=== PATIENT | female | born 1945 | race Caucasian/White ===

== ENCOUNTER → 2017-06-05 08:54 | Outpatient (CLI) | payer MEDICARE, SELFPAY ==
[2017-06-05 10:37] LABS: Absolute Lymphocyte Count 1.52 X10^3/ul (0.83-4.51); Absolute Neutrophil Count 3.4 X10^3/uL (2.0-7.7); Basophil# 0.03 X10^3/uL; Basophil% 0.5 % (0-1); Eosinophil# 0.05 X10^3/uL; Eosinophils% 0.9 % (0-5); Hematocrit 41.4 % (37-47); Hemoglobin 13.8 g/dl (12.0-15.0); Lymphocyte # 1.52 X10^3/ul (4.0); Lymphocyte % 27.4 % (19-41); Mean Corp Hgb Conc 33.3 g/gl (32-36); Mean Corpuscular Hgb 30.5 pg (27.0-32.0); Mean Corpuscular Volume 91.6 fL (81-99); Monocyte# 0.49 X10^3/uL; Monocyte% 8.8 % (0-10); Neutrophil # 3.43 X10^3/uL (2.7-7.7); Neutrophil % 61.9 % (47-70); Platelet Count 245 K/mm3 (150-450); RBC Distribution Width CV 14.1 % (11.6-14.6); RBC Distribution Width SD 46.5 fl (35.1-43.9); Red Blood Count 4.52 M/mm3 (4.2-5.4); White Blood Count 5.6 K/mm3 (4.4-11.0)
[2017-06-05 10:41] LABS: POSITIVE COUNT NO; POSITIVE DIFFERENTIAL NO; POSITIVE MORPHOLOGY NO
[2017-06-05 10:56] LABS: T3 Total - Triiodothyronine 0.94 ng/mL (0.6-1.81)
[2017-06-05 11:17] LABS: ALB/GLOB Ratio 0.9 RATIO (0.9-2.4); AST(SGOT) 21 U/L (15-37); Alanine Aminotransfer ALT/SGPT 21 U/L (13-56); Albumin, Serum 3.3 g/dL (3.2-5.0); Alkaline Phosphatase 121 U/L (45-117); Anion Gap 9 (5-15); BUN 10 mg/dL (7-18); BUN/Creat Ratio 11.6 RATIO (10-20); Calcium,Total 8.9 mg/dL (8.5-10.1); Chloride 102 mmol/L (98-107); Cholesterol 239 mg/dL (200); Creatinine, Serum 0.86 mg/dL (0.55-1.02); EST Glomerular Filtration Rate 69 mL/min (>60); Est Glom Filt Rate - Afr Amer 83 mL/min (>60); Globulin 3.7 g/dL (2.2-4.2); Glucose 100 mg/dL (74-106); High Density Lipoprotein 52 mg/dL; Potassium 4.2 mmol/L (3.5-5.1); Sodium Level 136 mmol/L (136-145); T4 Free Direct 1.42 ng/dL (0.76-1.46); Thyroid Stim Hormone (TSH) 0.51 uIU/mL (0.358-3.74); Triglycerides 100 mg/dL; Very Low Density Lipoprotein 20 mg/dL (5-40)
== END ==
PROVIDERS: Family Provider Family Medicine; PCP Family Medicine; Visit Provider Family Medicine
DX: E78.5 Hyperlipidemia, unspecified (principal); E03.9 Hypothyroidism, unspecified; R53.83 Other fatigue
CPT/HCPCS: 36415; 80053; 80061; 84439; 84443; 84480; 85025

== ENCOUNTER → 2017-11-23 14:17 | Outpatient (CLI) | payer MEDICARE, SELFPAY | PROVIDERS: Family Provider Family Medicine; PCP Family Medicine; Visit Provider Family Medicine | DX: Z12.31 Encounter for screening mammogram for malignant neoplasm of breast (principal) | CPT/HCPCS: 77063; 77067 ==

== ENCOUNTER → 2017-12-18 08:20 | Outpatient (CLI) | payer MEDICARE, SELFPAY ==
[2017-12-18 12:39] LABS: Cholesterol 224 mg/dL (200); High Density Lipoprotein 51 mg/dL; Triglycerides 88 mg/dL; Very Low Density Lipoprotein 18 mg/dL (5-40)
== END ==
PROVIDERS: Family Provider Family Medicine; PCP Family Medicine; Visit Provider Family Medicine
DX: E78.5 Hyperlipidemia, unspecified (principal)
CPT/HCPCS: 36415; 80061

== ENCOUNTER → 2017-12-31 07:07 | Outpatient (CLI) | payer MEDICARE, SELFPAY ==
--- NOTE | 2017-12-31 07:12 | RAD_ITS ---
STUDY: X-RAY CHEST REASON FOR EXAM: Female, 72 years old. Chronic cough for one month. TECHNIQUE: The colon COMPARISON: 03/18/2014. FINDINGS: The lungs are somewhat hyperinflated. No focal infiltrate is seen. There is no demonstrated pleural abnormality. Normal size heart. Normal mediastinum and vannesa. Normal visualized pulmonary arteries. There is atherosclerotic tortuosity of the aortic arch and descending thoracic aorta. There is vertebroplasty of lower thoracic vertebra probably T9. There is increased kyphosis of the thoracic spine. There are old fractures of the left ribs. There is no demonstrated abnormality of the visualized soft tissue structures of the upper abdomen. RAD/Chest PA and Lateral IMPRESSION: No active pulmonary disease. Electronically Signed: Gerber Greene MD at 2:22 EDT Tel , Service support ,
== END ==
PROVIDERS: Family Provider Family Medicine; PCP Family Medicine; Visit Provider Family Medicine
DX: R05 Cough (principal); Z72.0 Tobacco use
CPT/HCPCS: 71046

== ENCOUNTER 2018-02-01 11:30 | Outpatient (RCR) | payer MEDICARE, SELFPAY ==
--- NOTE | 2017-12-30 15:57 | HP.PTEVAL_ITS ---
Patient's Visit Information AMOS RIOS is a 72 year old F referred to Physical Therapy by Zuly Blas DO with a diagnosis of LOW AND MID BACK PAIN - OSTEOARTHRITIS. Date of Evaluation: 12/30/17 Physical Therapist: Valerie Baker - Visit Plan Frequency: 2x /Week Duration: 4-6 Weeks Plan: AQUATIC THERAPY FOR PAIN RELEIF, POSTURE CORRECTION/STRENGTHENING, INSTRUCTION IN APPROPRIATE BODY MECHANICS AND ACTIVITY MODIFICATIONS. DLS STARTING WITH A NEUTRAL SPINE PROGRESSING ROM TOLERATED. JAVID LE ROM, STRETCHING AND STRENGTHENING. HEP INSTRUCTION. 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 Disability: NO. Present symptoms: MID BACK PAIN, LOW BACK PAIN AND RIGHT GROIN. JAVID FINGER AND JAVID TOE NUMBNESS AND TINGLING. Present since: CHRONIC - AT LEAST 3 YEARS FOR MID BACK PAIN AND LONGER FOR LOW BACK PAIN. Pain Scale: WORST 8/10, LEAST 4/ 10. Currently: 6/10. Commenced as a result of: LOW BACK PAIN STARTED 3-4 YEARS AGO WITH A FALL WHEN SHE BROKE HER PELVIS IN MULTIPLE PLACES AND THEN A WHILE LATER SHE GOT A THORACIC COMPRESSION FREACTURE FOR NO APPARENT REASON. TOES STARTED TO TINGLE WHEN FELL AND FRACTURED PELVIS. FINGERS STARTED TO TINGLE IN THE LAST MONTH FOR NO APPARENT REASON. Worse: WALKING, STANDING, BENDING, LIFTING, HOUSEWORK, PROLONGED SITTING, GETTING IN AND OUT OF THE CAR, GETTING IN AND OUT OF BED, UP AND DOWN STEPS. Better: LYING IN BED WITH FEET UP, SITTING WITH FEET UP ON STOOL, BENDING BACK BACKWARDS. MALOXACAM. Disturbed sleep: NO. Previous history/Previous treatment: PHYSICAL THERAPY AFTER THE FALL. GLEN'S WERE TRIED ABOUT 3 YEARS AGO BUT DIDN'T HELP. VERTEBRAL PLASTY ABOUT 3 YEARS. AQUATIC THERAPY WITH SOME BENEFIT ABOUT 2 YEARS AGO. Coughing/sneezing/straining: POSITIVE. Gait: DISTANCE LIMITED BY LOW BACK PAIN. CART HELPS IN STORE. Difficulty initiating urinatin: NO. Accidents: NO. Unexplained weight loss: NO. Imaging: NONE RECENT. PMH: OSTEOPOROSIS, THYROID DZ, DEPRESSION, STOMACH ISSUES, MALOXACAM, H/O COLON CANCER 2011 TREATED WITH SURGERY AND LYMPHOMA 14 YEARS AGO TREATED WITH CHEMO AND RADIATION. OTHER: PATIENT REPORTS SHE HAS SILVER SNEAKERS BUT SHE DOES NOT USE IT. - Objective Sitting/Standing Posture: POOR. INCREASED KYPHOSIS, FORWARD HEAD, ROUNDED SHOULDERS. Active Correction of posture: BETTER. Other Observations: PATIENT IS ABLE TO INDEP'LY TRANSFER FROM SIT TO STAND WITHOUT UE ASSIST BUT IT IS DIFFICULT. Motor deficit: JAVID UE STRENGTH GROSSLY 4-/5 WITH MMT'ING. JAVID LE STRENGTH GROSSLY 4/5 WITH MMT'ING EXCEPT RIGHT HIP GRADED 3+/5. ROM deficit : APPROXIMATELY 30% DECREASE IN JAVID SHOULDER ELEVATION. TIGHT HIP FLEXORS, HS' S AND GASRTOC SOLEUS COMPLEX'S. Sensory deficit: JAVID UE AND LE LIGHT TOUCH SENSATION INTACT AND SYMMETRICAL EXCEPT GROSS DECREASE IN FINGER TIPS AND TOES. Lumbar mvmt loss: flex - NIL. ext - ROCCO. R SG - MOD. L SG - MOD. PATIENT C/O INCREASED MID AND LOW BACK PAIN WITH EXTENSION TESTING BUT IN SUBJECTIVE REPORTED THAT SHE STRETCHES BACKWARDS AT TIMES TO TRY TO GET RELEIF. THORACIC MVMT LOSS: MAJOR MVMT LOSS JAVID THORACIC ROTATION AND EXTENSION AND INCREASED PAIN WITH ROM TESTING. Core strength: POOR. Palpation: TENDER WITH PALPATION OF MID THORACIC SPINE REGION. OTHER: THIS PT PROCEEDED CAREFULLY WITH ALL TESTING TODAY. - Goals Goal 1:: DECREASE C/O BACK PAIN (MID AND LOW BACK). Goal Time Frame: 4-6 Weeks Goal 2:: IMPROVE LIFTING, WALKING, SITTING, STANDING, SOCIAL LIFE, TRAVEL AND HOMEMAKING FUNCTION Goal Time Frame: 4-6 Weeks Goal 3:: INSTRUCT IN PROPHYLAXIS Goal Time Frame: 4-6 Weeks - Rehabilitation Potential Rehabilitation Potential: Fair - Anticipated Interventions Patient/Client Instruction: Educate patient on: Condition, Plan of Care, Risk Factors, Benefits of Fitness Program For the Purpose of:: To improve self management Therapeutic Exercise to Include: Strength training, Body mechanics, Postural training, Flexibilty training, Gait and locomotor training, In an aquatic setting, Active ROM, Dynamic Lumbar Stabilization, Scapular Strength/ Stabilization For the Purpose of:: To decrease pain, To increase ROM, To improve muscle performance and motor function, To increase tolerance to activity/condition/ position, To improve ability of physical actions for home/community/work/leisure , To improve gait and locomotor functions Thank you for the opportunity to evaluate your patient. For Medicare and Medicare HMO plans, please review the plan of care and approve it. It will need to be FAXED BACK to us at [phone] for Medicare purposes. Please let me know if there are questions or concerns regarding this plan of care. Physician Signature: Date:
--- NOTE | 2018-02-01 12:22 | HP.PTREVAL_ITS ---
Zuly Blas, DO, It has been my pleasure to treat AMOS RIOS over the last 10 visits for LOW AND MID BACK PAIN - OSTEOARTHRITIS. Please see the progress note below for an update on the physical therapy plan of care! Subjective: PATIENT REPORTS THAT SINCE STARTING PT SHE IS WALKING BETTER AND SHE IS WORKING ON BETTER POSTURE. SHE REPORTS SHE IS HOLDING HER BACK DIFFERENTLY WHEN DOING HOUSEWORK AND THAT HELPS HER ACCOMPLISH A LITTLE BIT MORE. PATIENT REPORTS SHE IS DOING STEPS BETTER TOO AND SHE HAS STEPS AT WORK BUT NOT AT HOME. PATIENT REPORTS SHE IS NOT DRAGGING HER RIGHT LEG ANYMORE AND SHE IS WALKING MORE NORMALLY. SHE REPORTS SHE WAS WEARING OUT THE TOE OF HER RIGHT SHOES BUT NOT NOW. SHE REPORTS SHE DOES STILL HAVE TO ASSIST HER RIGHT LEG IN AND OUT OF THE CAR SOMETIMES BUT ONLY WHEN SHE IS REALLY TIRED. I THINK I HAVE MORE STRENGTH IN MY RIGHT LEG THAN I HAVE FOR A LONG TIME. PATIENT REPORTS HER FINGER AND TOE NUMBNESS AND TINGLING IS BETTER TOO - HASN'T HAD IT FOR A WEEK OR TWO NOW. Objective/Function: PAIN, STRENGTH, MOBILITY AND PARASTHESIA'S ARE IMPROVING. GOOD PROGRESS TOWARD ALL PT GOALS. PATIENT IS ABLE TO INDEP'LY TRANSFER FROM SIT TO STAND WITHOUT UE ASSIST MUCH MORE EASILY TODAY. Motor deficit: JAVID LE STRENGTH GROSSLY 5/5 WITH MMT'ING EXCEPT RIGHT HIP GRADED 4-/5 AND LEFT HIP 4/5. ROM deficit: APPROXIMATELY 30% DECREASE IN JAVID SHOULDER ELEVATION. TIGHT HIP FLEXORS, HS'S AND GASRTOC SOLEUS COMPLEX'S BUT TOLERATING STRETCHING EX'S. Sensory deficit: JAVID UE AND LE LIGHT TOUCH SENSATION IS INTACT AND SYMMETRICAL TODAY - FINGER AND TOE SX'S HAVE IMPROVED. Lumbar mvmt loss: flex - NIL. ext - MOD. R SG - MOD. L SG - MOD. PATIENT C/O IPSILATERAL LBP WITH SG TESTING BUT NO C/O INCREASED PAIN WITH FLEX AND EXT TESTING. THORACIC MVMT LOSS: MAJOR MVMT LOSS JAVID THORACIC ROTATION AND EXTENSION AND INCREASED PAIN WITH ROM TESTING. Core strength: POOR. Palpation: TENDER WITH PALPATION OF MID THORACIC SPINE REGION. OTHER: THIS PT PROCEEDED CAREFULLY WITH ALL TESTING TODAY. BACK OSWESTRY HAS IMPROVED FROM 26 TO 18. Plan Plan: WOULD RECOMMEND CONTINUED AQUATIC THERAPY 2 TIMES A WEEK FOR 4 WEEKS. PATIENT IS GOING TO USE A POOL OF HER CHOICE 1X/WEEK INDEP'LY TO WORK TOWARD FULL TRANSFER TO INDEP POOL PROGRAM. AQUATIC THERAPY FOR PAIN RELEIF, POSTURE CORRECTION/STRENGTHENING, INSTRUCTION IN APPROPRIATE BODY MECHANICS AND ACTIVITY MODIFICATIONS. DLS STARTING WITH A NEUTRAL SPINE PROGRESSING ROM TOLERATED. JAVID LE ROM, STRETCHING AND STRENGTHENING. HEP INSTRUCTION. Goals Goal 1:: DECREASE C/O BACK PAIN (MID AND LOW BACK). Goal Time Frame: 4-6 Weeks Goal Progress: Progressing Goal 2:: IMPROVE LIFTING, WALKING, SITTING, STANDING, SOCIAL LIFE, TRAVEL AND HOMEMAKING FUNCTION Goal Time Frame: 4-6 Weeks Goal Progress: Progressing Goal 3:: INSTRUCT IN PROPHYLAXIS Goal Time Frame: 4-6 Weeks Goal Progress: Progressing Anticipated Interventions Patient/Client Instruction: Educate patient on: Condition, Plan of Care, Risk Factors, Benefits of Fitness Program For the Purpose of:: To improve self management Therapeutic Exercise to Include: Strength training, Body mechanics, Postural training, Flexibilty training, Gait and locomotor training, In an aquatic setting, Active ROM, Dynamic Lumbar Stabilization, Scapular Strength/Stabilization For the Purpose of:: To decrease pain, To increase ROM, To improve muscle performance and motor function, To increase tolerance to activity/condition/position, To improve ability of physical actions for home/co mmunity/work/leisure, To improve gait and locomotor functions Please do not hesitate to contact me at [phone] by phone or if you have questions or concerns regarding this new plan of care! Sincerely, Valerie Baker
--- NOTE | 2018-02-19 12:20 | HP.PT.NRP ---
HP - Discharge Summary (1) - Patient Information AMOS RIOS was seen in my office for initial evaluation on 12/30/17. The following Plan of Care was established for this patient: Initial Frequency: 2x /Week Initial Duration: 4-6 Weeks - Anticipated Interventions Patient/Client Instruction: Educate patient on: Condition, Plan of Care, Risk Factors, Benefits of Fitness Program For the Purpose of:: To improve self management Therapeutic Exercise to Include: Strength training, Body mechanics, Postural training, Flexibilty training, Gait and locomotor training, In an aquatic setting, Active ROM, Dynamic Lumbar Stabilization, Scapular Strength/Stabilization For the Purpose of:: To decrease pain, To increase ROM, To improve muscle performance and motor function, To increase tolerance to activity/condition/position, To improve ability of physical actions for home/community/work/leisure, To improve gait and locomotor functions This patient was last seen in our office . Pertinent comments regarding their Physical therapy will appear below: I RECEIVED A NOTE STATING PATIENT CALLED AND CANCELLED HER REMAINING APPOINTMENTS DUE TO MONEY. At this point I will be discontinuing this patient from physical therapy. I would be happy to see this patient again in the future if found appropriate by the physician. Thank you! Valerie Baker
== END 2018-02-01 19:00 | disposition home or self-care (01) ==
LOC: PT 11:30
PROVIDERS: Family Provider Family Medicine; PCP Family Medicine; Visit Provider Family Medicine
DX: M47.9 Spondylosis, unspecified (principal)
CPT/HCPCS: 97113; 97163; 97530

== ENCOUNTER → 2018-02-08 12:45 | Outpatient (CLI) | payer MEDICARE, SELFPAY ==
[2018-02-08 13:06] VITALS: BP 116/67; PULSE 94; RESP 16; TEMP 36.8; O2SAT 95; BMI 28.3
[2018-02-08] MEDS: Zoledronic Acid 5 MG 100 ML 300 MG IV (13:23)
== END ==
PROVIDERS: Family Provider Family Medicine; PCP Family Medicine; Referring Provider Family Medicine; Visit Provider Family Medicine
DX: M81.0 Age-related osteoporosis without current pathological fracture (principal)
CPT/HCPCS: 96365; J7050; A4216; J3489

== ENCOUNTER → 2018-12-06 12:17 | Outpatient (CLI) | payer MEDICARE, SELFPAY ==
[2018-02-08 13:06] VITALS: BMI 28.3
--- NOTE | 2018-12-06 12:20 | BI_ITS ---
MAMMOGRAPHY - BILATERAL SCREENING REASON FOR EXAM: Female, 73 years old. Routine annual screening examination. PERTINENT HISTORY: Non-contributory. TECHNIQUE: Digital bilateral breast jhonny (3D mammographic acquisition) in the CC and MLO projections. 2-D mediolateral oblique (MLO) and craniocaudad (CC) views of both breasts were obtained. CAD: Full Field Digital Mammography with Computer Added Detection was performed. COMPARISON: Comparison is made with prior study dated November 23, 2017 and November 05, 2016. FINDINGS: Breast Composition: There are scattered areas of fibroglandular density. There are no dominant masses or suspicious calcifications. Stable appearance of the benign appearing bilateral axillary lymph nodes. No other significant abnormalities are identified. There has been no significant change since the prior study. BI/SCREEN MAMM (CAD) W/JHONNY BILAT IMPRESSION: Stable bilateral screening mammogram. Yearly follow-up mammogram recommended. (A) ASSESSMENT CATEGORY: BIRADS Category 2: Benign. A letter regarding these results will be sent to the patient by the facility within 30 days. Approximately 10% of breast cancers are not detected by mammography. A normal mammogram should not delay biopsy of a clinically suspicious abnormality. [id number] Electronically Signed: Jluis Bravo, at 14:00 EDT , Service support ,
== END ==
PROVIDERS: Family Provider Family Medicine; PCP Family Medicine; Referring Provider Family Medicine; Visit Provider Family Medicine
DX: Z12.31 Encounter for screening mammogram for malignant neoplasm of breast (principal)
CPT/HCPCS: 77063; 77067

== ENCOUNTER → 2019-01-13 11:17 | Outpatient (CLI) | payer MEDICARE, SELFPAY ==
[2019-01-10 13:13] VITALS: BMI 28.3
[2019-01-13 15:55] LABS: Absolute Lymphocyte Count 1.69 X10^3/uL (0.83-4.51); Absolute Neutrophil Count 2.8 X10^3/uL (2.0-7.7); Basophil# 0.06 X10^3/uL; Basophil% 1.2 % (0-1); Eosinophil# 0.19 X10^3/uL; Eosinophils% 3.7 % (0-5); Hematocrit 41.4 % (37-47); Hemoglobin 13.3 g/dL (12.0-15.0); Lymphocyte # 1.69 X10^3/ul (4.0); Lymphocyte % 33.1 % (19-41); Mean Corp Hgb Conc 32.1 g/dL (32-36); Mean Corpuscular Hgb 30.4 pg (27.0-32.0); Mean Corpuscular Volume 94.5 fL (81-99); Monocyte% 7.8 % (0-10); NRBC Flagged by Analyzer 0 % (0-5); Neutrophil # 2.75 X10^3/uL (2.7-7.7); Neutrophil % 53.8 % (47-70); Platelet Count 233 K/mm3 (150-450); RBC Distribution Width CV 14.6 % (11.6-14.6); RBC Distribution Width SD 50.6 fl (35.1-43.9); Red Blood Count 4.38 M/mm3 (4.2-5.4); White Blood Count 5.1 K/mm3 (4.4-11.0)
[2019-01-13 16:05] LABS: Vitamin D,25 Hydroxy 13.4 ng/mL (29.95-100.01)
[2019-01-13 18:56] LABS: ALB/GLOB Ratio 0.9 RATIO (0.9-2.4); AST(SGOT) 23 U/L (15-37); Alanine Aminotransfer ALT/SGPT 20 U/L (13-56); Albumin, Serum 3.5 g/dL (3.2-5.0); Alkaline Phosphatase 125 U/L (45-117); Anion Gap 5 (5-15); BUN 15 mg/dL (7-18); Chloride 106 mmol/L (98-107); Cholesterol 236 mg/dL (200); Creatinine, Serum 0.94 mg/dL (0.55-1.02); EST Glomerular Filtration Rate 62 mL/min (>60); Est Glom Filt Rate - Afr Amer 75 mL/min (>60); Free T3 1.9 pg/mL (2.18-3.98); Globulin 3.7 g/dL (2.2-4.2); Glucose 77 mg/dL (74-106); High Density Lipoprotein 56 mg/dL; Potassium 4.1 mmol/L (3.5-5.1); Protein, Total 7.2 g/dL (6.4-8.2); Sodium Level 137 mmol/L (136-145); T4 Free Direct 1.29 ng/dL (0.76-1.46); Thyroid Stim Hormone (TSH) 0.39 uIU/mL (0.358-3.74); Triglycerides 93 mg/dL; Very Low Density Lipoprotein 19 mg/dL (5-40)
== END ==
PROVIDERS: Family Provider Family Medicine; PCP Family Medicine; Visit Provider Family Medicine
DX: E03.9 Hypothyroidism, unspecified (principal); M81.0 Age-related osteoporosis without current pathological fracture; E78.5 Hyperlipidemia, unspecified; Z51.81 Encounter for therapeutic drug level monitoring; E55.9 Vitamin D deficiency, unspecified
CPT/HCPCS: 36415; 80053; 80061; 82306; 84439; 84443; 84481; 85025

== ENCOUNTER 2019-01-24 07:20 | Day surgery (SDC) | payer MEDICARE, SELFPAY ==
--- NOTE | 2019-01-10 01:14 | HP_ITS ---
Intake Vital Signs 01/10/19 Body Mass Index (BMI) 28.3 01/10/19 Height 5 ft 2 in 01/10/19 Weight: 154 lb 01/10/19 Body Mass Index (BMI) 28.1 01/10/19 Blood Pressure 96/63 01/10/19 Blood Pressure Location Rt brachial 01/10/19 Blood Pressure Position Sitting 01/10/19 Respiratory Rate 18 01/10/19 Pulse Rate 103 H 01/10/19 Pulse Source Monitor 01/10/19 Temperature 97.9 F 01/10/19 Temperature Source Oral 01/10/19 Pulse Ox 96 01/10/19 Oxygen Delivery Method room air Intake Visit Reasons: C-Scope Consult/DP [facility] 12/21/15 Chief Complaint: reclast infusion Block Hacker Required: No Is patient in pain?: No Allergies Sulfa (Sulfonamide Antibiotics) Allergy (Verified 01/10/19 13:09) Rash Medications Levothyroxine Sodium [Levoxyl] 125 mcg PO DAILY 06/11/13 [History Confirmed 01/10/19] Lorazepam [Ativan] 1 mg PO QHS 06/11/13 [History Confirmed 01/10/19] Omeprazole [Prilosec] 40 mg PO DAILY 06/11/13 [History Confirmed 01/10/19] Paroxetine [Paxil] 20 mg PO DAILY 06/11/13 [History Confirmed 01/10/19] Meloxicam [Mobic] 15 mg PO DAILY 06/12/13 [History Confirmed 01/10/19] Mirtazapine [Remeron] 45 mg PO QHS 03/18/14 [History Confirmed 01/10/19] [facility] Medical History Arthritis (Acute) Depression with anxiety (Acute) Diarrhea (Acute) GERD (gastroesophageal reflux disease) (Acute) History of back problems (Acute) History of colon cancer (Acute) History of thyroid cancer (Acute) Surgical History History of colectomy (Acute) History of hysterectomy (Acute) History of partial thyroidectomy (Acute) Family History Father Colon cancer Mother Heart disease Osteoporosis Social History (Updated 01/10/19 @ 13:27 by Corby Zuniga MD) Smoking Status: Current every day smoker alcohol intake: never substance use type: does not use HPI HPI HPI: AMOS RIOS, is a 73 F who presents to the office today for HPI HPI Surgical H&P: Yes HPI: AMOS RIOS, is a 73 F who presents to the office today for Colonoscopy. Patient had her last colonoscopy in 2015. She was noted to have a polyp in the rectum at that time. She does have a history of a right-sided colon cancer in 2010.She has Been noticing some diarrhea off and on. She has not been complaining of any abdominal pain. She has not noticed any weight change. ROS General General: Yes colon cancer; no weight change, appetite, fatigue, breast cancer or weakness HEENT HEENT: No difficulty swallowing, eye injury, eye surgery, swollen glands or hoarseness Endo Endocrine: Yes thyroid disease and thyroid cancer; no diabetes mellitus, Hair loss, heat intolerance or cold intolerance Skin Skin: No rash or changing moles Breast Breast: No left breast lump, right breast lump, nipple discharge, breast pain, abnormal mammogram, abnormal US or breast enlargement Musc Musculoskeletal: Yes back problems, arthritis and rheumatoid arthritis; no gout or joint pain Cardio Cardiovascular: No murmur, pacemaker, heart disease, atrial fibrillation, high blood pressure, heart attack, heart stent, palpitations, shortness of breat with exertion or chest pain Psych Psychiatric: Yes depression and anxiety; no hearing voices Resp Respiratory: No shortness of breath, No sleep apnea, No cough, No COPD, No asthma, No emphysema, No wheezing Gastro Gastrointestinal: No abdominal pain, No nausea or vomiting, Yes diarrhea, No constipation, No blood in stool, Yes acid reflux, No hemorrhoids, Yes ulcers, No gallbladder problem, No black,tarry stools Osvaldo Hematologic: No blood thinners, No blood disorders, No bleeding, No anemia, No blood clots Neuro Neurologic: No system reviewed and no additional complaints, except as docu, No as per HPI, No abnormal walking, No abnormal hearing, No abnormal movements, No abnormal speech, No behavioral changes, No burning sensations, No confusion, No seizure-like activity, No unsteadiness, No dizziness, No localized weakness, No frequent falls, No headache(s), No lack of coordination, No loss of vision, No memory loss, No numbness, No other visual disturbances, No radiating pain, No restless legs, No sensory deficit, No fainting, No tingling, No tremor(s), No weakness, No other Exam Const General: no acute distress, well developed, well hydrated Orientation: oriented to person, oriented to place, oriented to time [facility] Head: normocephalic, atraumatic Ears: external ears normal Mouth: moist mucous membranes Eyes Sclera: sclerae normal Pupils: normal by confrontation Neck Neck: no lymphadenopathy noted Neck mass: No Thyroid: thyroid normal, symmetrical Chest Chest palpation & inspection: normal inspection of the chest Breast Palpation: No nipple discharge Resp Effort & Inspection: normal respiratory effort Auscultation: clear to auscultation bilaterally Percussion: percussion normal Cardio Rate: regular rate Rhythm: regular rhythm Heart Sounds: no murmurs GI Palpation: soft, no hepatosplenomegaly, no masses, nontender Rectal Exam: other Other: Rectal exam deferred. Extrem General: normal to inspection, no clubbing, cyanosis or edema Assessment & Plan Problems 1. Personal history of colon cancer Z85.038 2. Personal history of colonic polyps Z86.010 3. Functional diarrhea K59.1 Plan I have discussed the above with the patient. I have offered the patient colonoscopy for evaluation. I have explained the risks/benefits of the procedure and described the procedure. I have discussed the risks with the patient, including but not limited to: infection, bleeding, perforation of the GI tract requiring emergency surgery, inability to complete the procedure, injury to any internal organs, complications of anesthesia, etc. - the patient understands and agrees to proceed. I have answered all the patient's questions to the patient's satisfaction and the patient has no further questions. The patient has been given instructions for the colon cleansing preparation. Coding Level of Care Code Off vis,est,level 3 Diagnoses Personal history of colon cancer Z85.038 Personal history of colonic polyps Z86.010 Functional diarrhea K59.1 ??Diarrhea type: functional diarrhea 01/10/19 1327 <Electronically signed by Corby donaldson MD> Date _ Corby Zuniga MD I have re-examined the patient. There are no clinical changes since date of exam.
[2019-01-10 13:13] VITALS: BMI 28.3
[2019-01-24 07:40] VITALS: BP 116/61; PULSE 94; RESP 14; TEMP 35.8; O2SAT 99; BMI 26.6
[2019-01-24] MEDS: Lactated Ringers 1,000 ML 100 ML IV ×2 (08:00→09:01)
--- NOTE | 2019-01-24 09:00 | COLBX_PTH ---
PATIENT: AMOS RIOS LOC: EN U#:[id number] AGE/SX: 73/F ROOM: RE01/24/[address]: Dr. Corby Zuniga MD : 1945 BED: DIS: 01/24/2019 SPEC #: [id number] RECD: 01/24/19 13:05 STATUS: JEROME ALFREDO #: [id number] KASEY: 01/24/19 09:[address]: Corby Zuniga DEPT: SURGICAL PATHOLOGY RECD BY: Mukul Bray ENTERED: 01/24/19 13:35 SP TYPE: COLON BX OTHR DR: Dr. Zuly Blas DO Tissues: COLON BIOPSY Procedures: Surgery Specimen Level IV HEADER OPERATION: Colonoscopy (MAC) PRE-OP DIAGNOSIS: History polyps, history colon CA TISSUE SUBMITTED: Random colon biopsies MICROSCOPIC DIAGNOSIS Colon, random biopsy: No pathologic diagnosis. AM:erasmo 01/25/19 MICROSCOPIC DESCRIPTION Slides are reviewed. GROSS DESCRIPTION Received in fixative is one container labeled with the patient's name and designated random colon biopsy. The specimen consists of multiple irregular fragments of light yarbrough soft tissue that in aggregate measure 1.5 x 0.7 x 0.1 cm. The specimen is totally submitted in one cassette. / SJ:erasmo 01/24/19 TC:5 CPT: 54337
[2019-01-24 09:20] VITALS: BP 116/61; BP 138/89; PULSE 75; RESP 16; TEMP 36.7; O2SAT 100
--- NOTE | 2019-01-24 09:21 | OP.ENDO_ITS ---
01/24/2019 Zuly Blas [address] [place] [address] Re : Colonoscopy procedure for Sonia Noble Dear Dr. Blas This procedure was performed on Thursday, January 24, 2019. My impressions and recommendations are as follows: Impressions : - The entire examined colon is normal. Biopsied. - Non-bleeding internal hemorrhoids. - Diverticulosis in the sigmoid colon. No specimens collected. - The examination was otherwise normal. Recommendations : - Discharge patient to home. - Resume previous diet. - Continue present medications. - Await pathology results. - Repeat colonoscopy in 5 years for surveillance. - Return to my office in 1 week. My findings are described in the full procedure note, which is enclosed. If I can be of further assistance, please feel free to contact me at Doctor phone number(s): , Fax: [phone], Work: . Sincerely, MD Corby Dan MD 01/24/2019 9:20:48 AM This report has been signed electronically.
[2019-01-24 09:25] VITALS: BP 115/68; BP 116/61; PULSE 78; RESP 16; O2SAT 97
[2019-01-24 09:30] VITALS: BP 116/61; BP 120/73; PULSE 78; RESP 16; O2SAT 95
[2019-01-24 09:35] VITALS: BP 116/61; BP 119/74; PULSE 80; RESP 16; TEMP 37.1; O2SAT 97
[2019-01-24 09:55] VITALS: BP 116/61
== END 2019-01-24 10:07 | disposition home or self-care (01) ==
LOC: EN 07:21 → AC 07:22
PROVIDERS: Family Provider Family Medicine; PCP Family Medicine; Referring Provider Family Medicine; Visit Provider Surgery
PROC: 0DJD8ZZ Inspection of Lower Intestinal Tract, Via Natural or Artificial Opening Endoscopic (ICD-10-PCS; CPT 45378; principal; 2019-01-24 08:55)
DX: Z12.11 Encounter for screening for malignant neoplasm of colon (principal); K57.30 Diverticulosis of large intestine without perforation or abscess without bleeding; K64.8 Other hemorrhoids; K59.1 Functional diarrhea; M06.9 Rheumatoid arthritis, unspecified; E78.00 Pure hypercholesterolemia, unspecified; F32.9 Major depressive disorder, single episode, unspecified; F41.9 Anxiety disorder, unspecified; K21.9 Gastro-esophageal reflux disease without esophagitis; F17.200 Nicotine dependence, unspecified, uncomplicated; Z78.0 Asymptomatic menopausal state; Z79.899 Other long term (current) drug therapy; Z88.2 Allergy status to sulfonamides; Z85.038 Personal history of other malignant neoplasm of large intestine; Z86.010 Personal history of colon polyps; Z85.850 Personal history of malignant neoplasm of thyroid
CPT/HCPCS: 45380; 88305; J7120

== ENCOUNTER → 2019-12-16 10:13 | Outpatient (CLI) | payer MEDICARE, SELFPAY ==
--- NOTE | 2019-12-16 10:15 | RAD_ITS ---
STUDY: X-RAY - RIGHT SHOULDER REASON FOR EXAM: Female, 74 years old. PAIN FOR A WEEK S/P MOVING HEAVY OBJECTS AND WASHING [place] TECHNIQUE: 4 view(s) of the shoulder. COMPARISON: None. FINDINGS: Normal glenohumeral articulation. There is degenerative arthrosis of the acromioclavicular joint without inferior osseous spur formation. Normal acromion. Normal humeral head and visualized proximal humerus. The soft tissue structures are unremarkable. Normal visualized pulmonary apex. RAD/Shoulder min 2 Views IMPRESSION: Mild degree of degenerative changes of the right acromioclavicular joint. Electronically Signed: Jluis Bravo, at 12:46 EDT , Service support ,
== END ==
PROVIDERS: PCP Family Medicine; Referring Provider Family Medicine; Visit Provider Family Medicine
DX: S43.50XA Sprain of unspecified acromioclavicular joint, initial encounter (principal)
CPT/HCPCS: 73030

== ENCOUNTER → 2019-12-23 09:49 | Outpatient (CLI) | payer MEDICARE, SELFPAY ==
--- NOTE | 2019-12-23 10:01 | BI_ITS ---
MAMMOGRAPHY - BILATERAL SCREENING REASON FOR EXAM: Female, 74 years old. Routine annual screening examination. PERTINENT HISTORY: Non-contributory. Patient has a history of thyroid cancer and colon cancer. TECHNIQUE: Digital bilateral breast jhonny (3D mammographic acquisition) in the CC and MLO projections. 2-D mediolateral oblique (MLO) and craniocaudad (CC) views of both breasts were obtained. CAD: Full Field Digital Mammography with Computer Added Detection was performed. COMPARISON: Comparison is made with prior study dated 12/06/2018 and 11/23/2017. FINDINGS: Breast Composition: There are scattered areas of fibroglandular density. There are no dominant masses or suspicious calcifications. No other significant abnormalities are identified. There has been no significant change since the prior study. BI/SCREEN MAMM (CAD) W/JHONNY BILAT IMPRESSION: Stable bilateral screening mammogram. Yearly follow-up mammogram recommended. (A) ASSESSMENT CATEGORY: BIRADS Category 1: Negative. A letter regarding these results will be sent to the patient by the facility within 30 days. Approximately 10% of breast cancers are not detected by mammography. A normal mammogram should not delay biopsy of a clinically suspicious abnormality. [id number] Electronically Signed: Jluis Bravo, at 11:57 EDT , Service support ,
== END ==
PROVIDERS: PCP Family Medicine; Referring Provider Family Medicine; Visit Provider Family Medicine
DX: Z12.31 Encounter for screening mammogram for malignant neoplasm of breast (principal)
CPT/HCPCS: 77063; 77067

== ENCOUNTER → 2020-01-23 07:03 | Outpatient (CLI) | payer MEDICARE, SELFPAY ==
[2020-01-23 09:51] LABS: Absolute Neutrophil Count 2.7 X10^3/uL (2.0-7.7); Basophil# 0.07 X10^3/uL; Basophil% 1.3 % (0-1); Eosinophil# 0.25 X10^3/uL; Eosinophils% 4.5 % (0-5); Hematocrit 42.2 % (37-47); Hemoglobin 13.5 g/dL (12.0-15.0); Mean Corpuscular Hgb 30.5 pg (27.0-32.0); Mean Corpuscular Volume 95.5 fL (81-99); Mean Platelet Vol. 10.8 fl (6.2-12.0); Monocyte# 0.49 X10^3/uL; Monocyte% 8.8 % (0-10); NRBC Flagged by Analyzer 0 % (0-5); Neutrophil # 2.71 X10^3/uL (2.7-7.7); Neutrophil % 48.9 % (47-70); Platelet Count 237 K/mm3 (150-450); RBC Distribution Width CV 14.1 % (11.6-14.6); RBC Distribution Width SD 49.9 fl (35.1-43.9); Red Blood Count 4.42 M/mm3 (4.2-5.4); White Blood Count 5.6 K/mm3 (4.4-11.0)
[2020-01-23 10:15] LABS: Vitamin D,25 Hydroxy 59.2 ng/mL
[2020-01-23 10:36] LABS: ALB/GLOB Ratio 0.8 RATIO (0.9-2.4); AST(SGOT) 19 U/L (15-37); Alanine Aminotransfer ALT/SGPT 18 U/L (13-56); Albumin, Serum 3.3 g/dL (3.2-5.0); Alkaline Phosphatase 128 U/L (45-117); Anion Gap 4 (5-15); BUN 14 mg/dL (7-18); BUN/Creat Ratio 14.4 RATIO (10-20); Calcium,Total 9.3 mg/dL (8.5-10.1); Chloride 104 mmol/L (98-107); Cholesterol 208 mg/dL (200); Creatinine, Serum 0.97 mg/dL (0.55-1.02); EST Glomerular Filtration Rate 60 mL/min (>60); Est Glom Filt Rate - Afr Amer 72 mL/min (>60); Free T3 1.6 pg/mL (2.18-3.98); Globulin 3.9 g/dL (2.2-4.2); Glucose 83 mg/dL (74-106); High Density Lipoprotein 54 mg/dL; Potassium 4.1 mmol/L (3.5-5.1); Protein, Total 7.2 g/dL (6.4-8.2); Sodium Level 135 mmol/L (136-145); Thyroid Stim Hormone (TSH) 7.82 uIU/mL (0.358-3.74); Triglycerides 121 mg/dL; Very Low Density Lipoprotein 24 mg/dL (5-40)
== END ==
PROVIDERS: PCP Family Medicine; Referring Provider Family Medicine; Visit Provider Family Medicine
DX: E03.9 Hypothyroidism, unspecified (principal); E78.5 Hyperlipidemia, unspecified; E55.9 Vitamin D deficiency, unspecified; Z51.81 Encounter for therapeutic drug level monitoring
CPT/HCPCS: 36415; 80053; 80061; 82306; 84439; 84443; 84481; 85025

== ENCOUNTER → 2020-08-15 09:44 | Outpatient (CLI) | payer MEDICARE, SELFPAY ==
--- NOTE | 2020-08-15 09:51 | VDLE_ITS ---
Reason For Study: swelling Procedure LEFT This is a venous duplex using B-mode, color CFV is compressible, spontaneous, phasic, flow and spectral Doppler. competent, and demonstrates normal Exam performed in department. augmentation. The exam was abbreviated due to the COVID 19 FV is compressible, spontaneous, phasic, protocol. competent and demonstrates normal The exam was diagnostic. augmentation. A preliminary report was called and/or faxed POP V is compressible, spontaneous, phasic, to Dr. Barber. competent and demonstrates normal augmentation. T/P Trunk is compressible. PTV is compressible. LT PerV is compressible. SFJ is competent and measures .48 cm. GSV proximal thigh measures .21 x .23 cm. GSV at knee measures .24 x .26 cm. GSV above knee is INCOMPETENT for greater than 0.5 seconds. GSV below knee is competent. SSV proximal calf is competent and measures .21 x .20 cm. Hypoechoic area medial portion of the knee measuring 1.04 x 1.99 cm in short. Area appears to be nonvascular. VL/Venous Duplex US, Unilateral Interpretation Summary Deep veins of the left lower extremity are patent and compressible segmentally. There is no evidence of left lower extremity deep vein thrombosis. Valvular competence appears intac t within the proximal deep venous system on the left . The left great saphenous vein appears patent a nd compressible segmentally. The left sapheno-femoral junction is competent . The left great sa phenous vein appears incompetent above the knee. The left great saphenous vein appears competent bel ow the knee. The left small saphenous vein is patent and competent. A non-vascular, hypoechoic struct ure is noted near the left medial knee, measuring 1.04 cm x 1.99 cm. This may represent a seroma or h ematoma. Clinical correlation is advised. Ordering Physician: Tani Barber Performed By: Noe Kim, RVT
== END ==
PROVIDERS: PCP Family Medicine; Referring Provider Family Medicine; Visit Provider Family Medicine
DX: M79.89 Other specified soft tissue disorders (principal)
CPT/HCPCS: 93971

== ENCOUNTER → 2020-11-22 06:39 | Outpatient (CLI) | payer MEDICARE, SELFPAY ==
--- NOTE | 2020-11-22 06:54 | CT_ITS ---
STUDY: CT BRAIN WITHOUT CONTRAST REASON FOR EXAM: Female, 75 years old. DIZZINESS RADIATION DOSAGE (If Supplied By Facility): CTDIvol = ( 44.99 ) mGy, DLP = ( 762.36 ) mGycm TECHNIQUE: Transaxial CT imaging of the brain was performed without administration of intravenous contrast material. Individualized dose optimization techniques were used for this CT. COMPARISON: Comparison is made with prior study of 07/09/2010. FINDINGS: Normal soft tissue structures. Normal calvarium. There is mild cerebral atrophy with widening of the extra-axial spaces and ventricular dilatation. There are areas of decreased attenuation within the white matter tracts of the supratentorial brain, consistent with microvascular disease changes. Normal basal ganglia and thalami. Normal brainstem. Normal cerebellum. There is no intracranial hemorrhage. There are no findings of an acute ischemic infarction. Atherosclerotic calcification of the cavernous portions of the internal carotid arteries bilaterally. Minimal mucosal thickening of the ethmoid sinuses as well as the medial aspect of the right maxillary sinus. CT/Brain/Head without Contrast IMPRESSION: Chronic involutional changes of the brain. Electronically Signed: Jluis Bravo MD at 8:28 EDT , Service support ,
[2020-11-22 07:07] LABS: Absolute Lymphocyte Count 2.07 X10^3/uL (0.83-4.51); Absolute Neutrophil Count 3.6 X10^3/uL (2.0-7.7); Basophil# 0.08 X10^3/uL; Basophil% 1.2 % (0-1); Eosinophil# 0.16 X10^3/uL; Eosinophils% 2.4 % (0-5); Hematocrit 39.3 % (37-47); Hemoglobin 12.7 g/dL (12.0-15.0); Lymphocyte # 2.07 X10^3/ul (0.83-4.51); Lymphocyte % 31.6 % (19-41); Mean Corp Hgb Conc 32.3 g/dL (32-36); Mean Corpuscular Hgb 30.2 pg (27.0-32.0); Mean Corpuscular Volume 93.6 fL (81-99); Mean Platelet Vol. 8.9 fl (6.2-12.0); Monocyte# 0.54 X10^3/uL; Monocyte% 8.2 % (0-10); NRBC Flagged by Analyzer 0 % (0-5); Neutrophil # 3.63 X10^3/uL (2.7-7.7); Neutrophil % 55.4 % (47-70); Platelet Count 313 K/mm3 (150-450); RBC Distribution Width CV 14.1 % (11.6-14.6); RBC Distribution Width SD 49.1 fl (35.1-43.9); White Blood Count 6.6 K/mm3 (4.4-11.0)
[2020-11-22 07:58] LABS: ALB/GLOB Ratio 0.9 RATIO (0.9-2.4); AST(SGOT) 20 U/L (15-37); Alanine Aminotransfer ALT/SGPT 13 U/L (13-56); Albumin, Serum 3.5 g/dL (3.2-5.0); Alkaline Phosphatase 118 U/L (45-117); Anion Gap 8 (5-15); BUN 11 mg/dL (7-18); BUN/Creat Ratio 10.5 RATIO (10-20); Chloride 101 mmol/L (98-107); Creatinine, Serum 1.05 mg/dL (0.55-1.02); EST Glomerular Filtration Rate 54 mL/min (>60); Est Glom Filt Rate - Afr Amer 66 mL/min (>60); Free T3 1.9 pg/mL (2.18-3.98); Globulin 3.9 g/dL (2.2-4.2); Glucose 108 mg/dL (74-106); Magnesium 2.4 mg/dL (1.6-2.6); Potassium 4.2 mmol/L (3.5-5.1); Protein, Total 7.4 g/dL (6.4-8.2); Sodium Level 136 mmol/L (136-145); T4 Free Direct 1.14 ng/dL (0.76-1.46); Thyroid Stim Hormone (TSH) 7.29 uIU/mL (0.358-3.74)
[2020-11-22 08:36] LABS: Vitamin B12 277 pg/mL (211-911)
== END ==
PROVIDERS: PCP Family Medicine; Referring Provider Family Medicine; Visit Provider Family Medicine
DX: R29.898 Other symptoms and signs involving the musculoskeletal system (principal); R42 Dizziness and giddiness; R51.9 Headache, unspecified; E03.9 Hypothyroidism, unspecified; R53.83 Other fatigue; R20.2 Paresthesia of skin
CPT/HCPCS: 36415; 70450; 80053; 82607; 83735; 84439; 84443; 84481; 85025

== ENCOUNTER → 2021-01-08 16:00 | Outpatient (CLI) | payer MEDICARE, SELFPAY ==
--- NOTE | 2021-01-08 16:02 | BI_ITS ---
MAMMOGRAPHY - BILATERAL SCREENING REASON FOR EXAM: Female, 75 years old. Routine annual screening examination. PERTINENT HISTORY: Non-contributory. History of thyroid cancer and colon cancer. TECHNIQUE: Digital bilateral breast jhonny (3D mammographic acquisition) in the CC and MLO projections. 2-D mediolateral oblique (MLO) and craniocaudad (CC) views of both breasts were obtained. CAD: Full Field Digital Mammography with Computer Added Detection was performed. COMPARISON: Comparison is made with prior examination of 12/23/2019 and 12/06/2018. FINDINGS: Breast Composition: There are scattered areas of fibroglandular density. There are no dominant masses or suspicious calcifications. No other significant abnormalities are identified. There has been no significant change since the prior study. BI/SCRN MAMM (CAD)W/JHONNY BILAT IMPRESSION: Stable bilateral screening mammogram. Yearly follow-up mammogram recommended. (A) ASSESSMENT CATEGORY: BIRADS Category 1: Negative. A letter regarding these results will be sent to the patient by the facility within 30 days. Approximately 10% of breast cancers are not detected by mammography. A normal mammogram should not delay biopsy of a clinically suspicious abnormality. [id number] Electronically Signed: Jluis Bravo MD at 8:36 EDT , Service support ,
== END ==
PROVIDERS: PCP Family Medicine; Referring Provider Family Medicine; Visit Provider Family Medicine
DX: Z12.31 Encounter for screening mammogram for malignant neoplasm of breast (principal)
CPT/HCPCS: 77063; 77067

== ENCOUNTER → 2021-01-24 12:46 | Outpatient (CLI) | payer MEDICARE, SELFPAY | PROVIDERS: PCP Family Medicine; Visit Provider Family Medicine | DX: U07.1 COVID-19 (principal); Z20.828 Contact with and (suspected) exposure to other viral communicable diseases | CPT/HCPCS: 87635; U0005; U0003 ==

== ENCOUNTER → 2021-08-27 | Outpatient (CLI) | payer MEDICARE, SELFPAY ==
--- NOTE | 2021-08-27 13:55 | BD_ITS ---
STUDY: DUAL ENERGY X-RAY ABSORPTIOMETRY / DXA REASON FOR EXAM: Female, 76 years old. M810. Patient is postmenopausal. TECHNIQUE: Bone Mineral Density (BMD) measurements of lumbar spine and bilateral hips were obtained. COMPARISON: Comparison is made with prior study dated 07/31/2013. FINDINGS: Lumbar Spine (L1-L4): g/cm2 (0.779) / T-score (-2.3) / Z-score (0.1) Findings are suggestive of osteopenia with a high fracture risk. Left Femur Total: g/cm2 (0.638) / T-score (-2.5) / Z-score (-0.6) Left Femoral Neck: g/cm2 (0.568) / T-score (-2.5) / Z-score (-0.4) Right Femur Total: g/cm2 (0.605) / T-score (-2.8) / Z-score (-0.9) Right Femoral Neck: g/cm2 (0.531) / T-score (-2.9) / Z-score (-0.7) The T-Scores on the most recent prior examination were: Lumbar Spine (L1-L4): There has been improvement of bone density since the previous examination. Left Femur Total: which represents a worsening of 0.4%. Right Femur Total: which represents an improvement of 1.3%. BD/Dexa Bone Density Study IMPRESSION: The patient is considered osteoporotic as outlined below according to World [place] Organization (WHO) criteria with a high fracture risk. There has been improvement of bone density since the previous examination. Reference Information: The T-score is the number of standard deviations above or below the standard which is normal for young adults at their peak bone mineral density. The World Health Organization (WHO) interprets the T-scores as follows: Above -1 Normal bone density Between -1 and -2.5 Osteopenia Equal to / or below -2.5 Osteoporosis As a practical clinical guideline, osteopenia may be graded as follows: Mild -1 through -1.5 Moderate -1.6 through -2.0 Severe -2.1 through -2.4 The Z-score is the number of standard deviations above or below age-matched controls. A Z-score of less than -1.5 would be considered abnormal. References: 1. NIH Osteoporosis and Related Bone Diseases www osteo.org 2. International Society for Clinical Densitometry www iscd.org 3. National Osteoporosis Foundation www nof.org Electronically Signed: Jluis Bravo MD at 12:39 EDT ,
== END | disposition home or self-care (01) ==
PROVIDERS: PCP Family Medicine; Visit Provider Family Medicine
DX: M81.0 Age-related osteoporosis without current pathological fracture (principal)
CPT/HCPCS: 77080

== ENCOUNTER → 2021-09-17 | Outpatient (CLI) | payer MEDICARE, SELFPAY ==
[2021-09-17] MEDS: 0.9% NaCl Peripheral Flush Adult/Peds IV (08:30)
[2021-09-17 08:33] VITALS: BP 128/65; PULSE 100; RESP 20; TEMP 36; O2SAT 95; BMI 26.2
[2021-09-17] MEDS: Zoledronic Acid 5 MG 100 ML 300 MG IV (08:36)
[2021-09-17 09:04] VITALS: BP 122/64; PULSE 72
== END | disposition home or self-care (01) ==
LOC: MEDOUTP 08:10
PROVIDERS: PCP Family Medicine; Referring Provider Family Medicine; Visit Provider Family Medicine
DX: M81.0 Age-related osteoporosis without current pathological fracture (principal)
CPT/HCPCS: 96365; A4216; J3489

== ENCOUNTER → 2021-10-15 | Outpatient (CLI) | payer MEDICARE, SELFPAY | END | disposition home or self-care (01) | LOC: LABSPEC 15:01 | PROVIDERS: PCP Family Medicine; Referring Provider Family Medicine; Visit Provider Family Medicine | DX: Z20.822 Contact with and (suspected) exposure to COVID-19 (principal) | CPT/HCPCS: 87635; U0003; U0005 ==

== ENCOUNTER → 2022-01-21 | Outpatient (CLI) | payer MEDICARE, SELFPAY ==
--- NOTE | 2022-01-21 14:45 | BI_ITS ---
MAMMOGRAPHY - BILATERAL SCREENING REASON FOR EXAM: Female, 76 years old. Routine annual screening examination. PERTINENT HISTORY: Non-contributory. TECHNIQUE: Digital bilateral breast jhonny (3D mammographic acquisition) in the CC and MLO projections. 2-D mediolateral oblique (MLO) and craniocaudad (CC) views of both breasts were obtained. CAD: Full Field Digital Mammography with Computer Added Detection was performed. COMPARISON: Comparison is made with prior study dated 01/08/2021 and 12/23/2019. FINDINGS: Breast Composition: There are scattered areas of fibroglandular density. There are no dominant masses or suspicious calcifications. No other significant abnormalities are identified. There has been no significant change since the prior study. BI/SCRN MAMM (CAD)W/JHONNY BILAT IMPRESSION: Stable bilateral screening mammogram. Yearly follow-up mammogram recommended. (A) ASSESSMENT CATEGORY: BIRADS Category 1: Negative. A letter regarding these results will be sent to the patient by the facility within 30 days. Approximately 10% of breast cancers are not detected by mammography. A normal mammogram should not delay biopsy of a clinically suspicious abnormality. [id number] Electronically Signed: Jluis Bravo MD at 15:27 EDT ,
== END | disposition home or self-care (01) ==
LOC: OPBI 14:44
PROVIDERS: PCP Family Medicine; Visit Provider Family Medicine
DX: Z12.31 Encounter for screening mammogram for malignant neoplasm of breast (principal)
CPT/HCPCS: 77063; 77067

== ENCOUNTER 2022-03-14 13:14 | Emergency (ER) | payer MEDICARE, SELFPAY ==
[2022-03-14 13:15] VITALS: BP 126/71; PULSE 93; RESP 18; TEMP 36.1; O2SAT 98; BMI 26.4
--- NOTE | 2022-03-14 13:34 | EDS_ITS ---
HPI History of Present Illness Chief Complaint: Foreign Body Informant: patient Narrative Narrative: Patient reports that a little rubber part of her hearing aid is stuck in her right ear canal. [facility] Medical History Arthritis Depression with anxiety Diarrhea GERD (gastroesophageal reflux disease) History of back problems History of colon cancer History of thyroid cancer Home Medications levothyroxine 125 mcg tablet 125 mcg PO DAILY 06/11/13 [History Last Taken 01/24/19 06:45 125 mcg] lorazepam 1 mg tablet 1 mg PO QHS 06/11/13 [History Last Taken 06/11/13 1 mg] omeprazole 20 mg capsule,delayed release 40 mg PO DAILY GERD 06/11/13 [History Last Taken 01/24/19 06:45 20 mg] meloxicam 15 mg tablet 15 mg PO DAILY 06/12/13 [History Last Taken 06/12/13 15 mg] mirtazapine 15 mg tablet 45 mg PO QHS sleep 03/18/14 [History Last Taken Unknown] cholecalciferol (vitamin D3) 1,250 mcg (50,000 unit) capsule 50,000 units PO QWEEK 01/24/19 [History Last Taken Unknown] pravastatin 10 mg tablet 10 mg PO QHS 01/24/19 [History Last Taken Unknown] sertraline 100 mg tablet 100 mg PO DAILY 09/17/21 [History Last Taken Unknown] Allergy/AdvReac Type Severity Reaction Status Date / Time Sulfa (Sulfonamide Allergy Rash Verified 03/14/22 13:16 Antibiotics) Family History Father Colon cancer Mother Heart disease Osteoporosis Surgical History History of colectomy History of hysterectomy History of partial thyroidectomy Social History Smoking Status: Current every day smoker tobacco type: cigarettes alcohol intake: never substance use type: does not use ROS ROS ED Constitutional Constitutional ED: Denies chills or weight loss Eyes Eyes: Denies change in vision or diplopia ENT ENT ED: Reports other Details: Foreign body right ear canal ; Denies ear pain, rhinorrhea or sore throat Cardiovascular Cardiovascular: Denies chest pain, orthopnea, palpitations or racing heartbeat Respiratory/Chest Respiratory/Chest: Denies cough, dyspnea or orthopnea Gastrointestinal Gastrointestinal: Denies abdominal pain, diarrhea, nausea or vomiting Genitourinary Genitourinary ED: Denies dysuria, hematuria or urinary frequency Musculoskeletal Musculoskeletal: Denies arthralgias or myalgias Integumentary Denies abscess or rash Neurologic Neurologic: Denies headache(s) or weakness Psychiatric Psychiatric: Denies anxiety, depression, suicidal ideation or suicidal thoughts Endocrine Endocrinology: Denies polydipsia, polyphagia or polyuria Allergic/Immunologic Allergic/Immunologic ED: Denies mouth swelling, tongue swelling or urticaria EXAM Physical Exam Const Vital Signs: 03/14/22 13:15 Temperature 97 F L Temperature Source Temporal Pulse Rate 93 Respiratory Rate 18 Blood Pressure 126/71 H Blood Pressure Mean 89 Pulse Ox 98 Oxygen Delivery Method Room Air Positive well nourished and well developed General Appearance ED: well developed HEENT Reports normocephalic, head/scalp atraumatic and moist mucous membranes HEENT Narrative: There is a visualized piece of rubber in the ear canal of the right. No bleeding. Eyes PERRL and EOMs intact bilaterally Neck no lymphadenopathy, supple and no JVD Resp normal respiratory effort and clear to auscultation bilaterally Cardio regular rate, regular rhythm and no murmurs GI normal to inspection, nondistended, normoactive bowel sounds and non-tender Palpation: soft Back/Spine no CVA tenderness and normal ROM Extremity normal to inspection General Extremety ED: Negative for edema General Extremity: Negative for edema Neuro oriented x3 and CN's II-XII intact bilaterally Sensorium / Orientation: alert Motor Exam: strength 5/5 throughout Psych mental status grossly normal Mood & Affect: Negative for depressed or tearful Skin no rashes or lesions noted and no wounds MDM MDM MDM Narrative Medical decision making narrative: Using headlamp and small alligator forceps the piece was grasped and removed without any difficulty. Patient tolerated procedure well. No perforation of the tympanic membrane was noted follow-up as needed Discharge Plan Triage Chief Complaint: Foreign Body ED Provider: Corby Mckay Dx/Rx/DC Orders Clinical Impression: Foreign body in ear Instructions: ED Foreign Body, Ear Canal (Removed) Prescriptions: No Action levothyroxine 125 MCG tablet 125 mcg PO DAILY Label Comments: THYROID omeprazole 20 MG capsule 40 mg PO DAILY Label Comments: GERD lorazepam 1 MG tablet 1 mg PO QHS Label Comments: ANXIETY meloxicam 15 MG tablet 15 mg PO DAILY Label Comments: pain mirtazapine 15 MG tablet 45 mg PO QHS pravastatin 10 MG tablet 10 mg PO QHS cholecalciferol (vitamin D3) 50,000 UNIT capsule 50,000 units PO QWEEK Label Comments: takes on sertraline 100 mg Tablet 100 mg PO DAILY Primary Care Provider: Zuly Blas Referrals: Zuly Blas DO [Primary Care Provider] - As Needed Disposition Disposition: Home, Self Care
== END 2022-03-14 13:56 | disposition home or self-care (01) ==
LOC: ED 13:49
PROVIDERS: Emergency Provider Emergency Medicine; PCP Family Medicine; Visit Provider Emergency Medicine
DX: T16.1XXA Foreign body in right ear, initial encounter (principal); F17.210 Nicotine dependence, cigarettes, uncomplicated; X58.XXXA Exposure to other specified factors, initial encounter
CPT/HCPCS: 99282

== ENCOUNTER → 2022-05-21 | Outpatient (CLI) | payer MEDICARE, SELFPAY ==
[2022-05-21 12:12] LABS: Absolute Lymphocyte Count 1.27 X10^3/uL (0.83-4.51); Absolute Neutrophil Count 3.3 X10^3/uL (2.0-7.7); Basophil# 0.07 X10^3/uL; Basophil% 1.3 % (0-1); Eosinophil# 0.17 X10^3/uL; Eosinophils% 3.2 % (0-5); Hematocrit 39.3 % (37-47); Hemoglobin 12.7 g/dL (12.0-15.0); Lymphocyte # 1.27 X10^3/ul (0.83-4.51); Lymphocyte % 23.9 % (19-41); Mean Corp Hgb Conc 32.3 g/dL (32-36); Mean Corpuscular Hgb 29.1 pg (27.0-32.0); Mean Corpuscular Volume 90.1 fL (81-99); Mean Platelet Vol. 10.8 fl (6.2-12.0); Monocyte# 0.44 X10^3/uL; Monocyte% 8.3 % (0-10); NRBC Flagged by Analyzer 0 % (0-5); Neutrophil # 3.33 X10^3/uL (2.7-7.7); Neutrophil % 62.5 % (47-70); Platelet Count 295 K/mm3 (150-450); RBC Distribution Width CV 14.7 % (11.6-14.6); RBC Distribution Width SD 49.2 fl (35.1-43.9); Red Blood Count 4.36 M/mm3 (4.2-5.4); White Blood Count 5.3 K/mm3 (4.4-11.0)
[2022-05-21 12:48] LABS: ALB/GLOB Ratio 0.8 RATIO (0.9-2.4); AST(SGOT) 31 U/L (15-37); Alanine Aminotransfer ALT/SGPT 27 U/L (13-56); Albumin, Serum 3.3 g/dL (3.2-5.0); Alkaline Phosphatase 136 U/L (45-117); Anion Gap 6 (5-15); BUN 11 mg/dL (7-18); BUN/Creat Ratio 12.1 RATIO (10-20); Calcium,Total 9.1 mg/dL (8.5-10.1); Chloride 103 mmol/L (98-107); Creatinine, Serum 0.91 mg/dL (0.55-1.02); EST Glomerular Filtration Rate 64 mL/min (>60); Est Glom Filt Rate - Afr Amer 77 mL/min (>60); Free T3 1.8 pg/mL (2.18-3.98); Globulin 4.2 g/dL (2.2-4.2); Glucose 103 mg/dL (74-106); Potassium 4.6 mmol/L (3.5-5.1); Protein, Total 7.5 g/dL (6.4-8.2); Sodium Level 136 mmol/L (136-145); T4 Free Direct 1.41 ng/dL (0.76-1.46); Thyroid Stim Hormone (TSH) 1.37 uIU/mL (0.358-3.74)
[2022-05-21 18:14] LABS: Xtra Tube EP Lab EXTRA TUBE
== END | disposition home or self-care (01) ==
LOC: BFHLAB 10:11
PROVIDERS: PCP Family Medicine; Visit Provider Family Medicine
DX: E03.9 Hypothyroidism, unspecified (principal); Z51.81 Encounter for therapeutic drug level monitoring
CPT/HCPCS: 36415; 80053; 84439; 84443; 84481; 85025

== ENCOUNTER → 2022-05-26 | Outpatient (CLI) | payer MEDICARE, SELFPAY | END | disposition home or self-care (01) | LOC: LABSPEC 11:20 | PROVIDERS: PCP Family Medicine; Visit Provider Family Medicine | DX: K52.9 Noninfective gastroenteritis and colitis, unspecified (principal) | CPT/HCPCS: 83630 ==

== ENCOUNTER → 2022-08-27 | Outpatient (CLI) | payer MEDICARE, SELFPAY ==
[2022-08-27 12:49] LABS: Free T3 2.7 pg/mL (2.18-3.98); T4 Free Direct 1.45 ng/dL (0.76-1.46)
== END | disposition home or self-care (01) ==
LOC: BFHLAB 10:49
PROVIDERS: PCP Family Medicine; Referring Provider Family Medicine; Visit Provider Family Medicine
DX: E03.9 Hypothyroidism, unspecified (principal)
CPT/HCPCS: 36415; 84439; 84443; 84481

== ENCOUNTER → 2022-12-02 | Outpatient (CLI) | payer MEDICARE, SELFPAY ==
[2022-12-02 15:49] LABS: Free T3 2.6 pg/mL (2.18-3.98); Thyroid Stim Hormone (TSH) 0.05 uIU/mL (0.358-3.74)
== END | disposition home or self-care (01) ==
LOC: BFHLAB 13:39
PROVIDERS: PCP Family Medicine; Referring Provider Family Medicine; Visit Provider Family Medicine
DX: E03.9 Hypothyroidism, unspecified (principal)
CPT/HCPCS: 36415; 84439; 84443; 84481

== ENCOUNTER 2022-12-08 14:10 | Emergency (ER) | payer MEDICARE, SELFPAY ==
[2022-12-08 14:11] VITALS: BP 110/85; PULSE 101; RESP 14; TEMP 36.2; O2SAT 98; BMI 24.5
--- NOTE | 2022-12-08 15:43 | VDLE_ITS ---
Reason For Study: LLE Pain RIGHT LEFT CFV is compressible, spontaneous, phasic, CFV is compressible, spontaneous, phasic, competent and demonstrates normal competent, and demonstrates normal augmentation. augmentation. Procedure FV is compressible, spontaneous, phasic, This is a venous duplex using B-mode, color competent and demonstrates normal flow and spectral Doppler. augmentation. Exam performed portable in ED. POP V is compressible, spontaneous, phasic, The exam was diagnostic. competent and demonstrates normal A preliminary report was called and/or faxed augmentation. to Dr. Posada. T/P Trunk is compressible. PTV is compressible. LT PerV is compressible. LT GSV - HX Ablation/Venoseal procedure. VL/Venous Duplex US, Unilateral Interpretation Summary There is no evidence of left lower extremity deep vein thrombosis. History of e ndovascular ablation left great saphenous vein Normal flow patterns right common femoral vein Ordering Physician: Kaushik Posada Referring Physician: Zuly Blas Performed By: Alex Moses RVT
--- NOTE | 2022-12-08 15:43 | ED.VIS.LOWEX ---
HPI History of Present Illness Chief Complaint: Lower Extremity Injury Informant: patient and spouse/S.O. Narrative Narrative: Patient complains of lateral left ankle pain. Patient states that yesterday she felt fine. Today she gets intermittent pain in her left ankle. She states it seems to just be off and on. She is able to bear weight at times. But then she will move a certain way and it suddenly has sharp pain. She has no pain higher up her leg. She always has some back pain and has had prior back surgeries but is not having any difference with this. Pain does not radiate down from the back. It only occurs at the lateral left ankle. Most of is actually at the lower tip of the lateral malleolus. She states it seems a little bit swollen there. But she has had no fevers or chills. She has no recent infection or antibiotic use. She has never had DVT or PE. She is not on any blood thinners. She does not recall any specific trauma but feels certainly she could have hurt the ankle slightly. Other than that one spot of her ankle she feels perfectly fine. [facility] Medical History (Updated 12/08/22 @ 16:[address] Kaushik Posada MD) Arthritis Depression with anxiety Diarrhea GERD (gastroesophageal reflux disease) History of back problems History of colon cancer History of thyroid cancer Home Medications levothyroxine 125 mcg tablet 125 mcg PO DAILY 06/11/13 [History Last Taken 01/24/19 06:45 125 mcg] lorazepam 1 mg tablet 1 mg PO QHS 06/11/13 [History Last Taken 06/11/13 1 mg] omeprazole 20 mg capsule,delayed release 40 mg PO DAILY GERD 06/11/13 [History Last Taken 01/24/19 06:45 20 mg] meloxicam 15 mg tablet 15 mg PO DAILY 06/12/13 [History Last Taken 06/12/13 15 mg] mirtazapine 15 mg tablet 45 mg PO QHS sleep 03/18/14 [History Last Taken Unknown] cholecalciferol (vitamin D3) 1,250 mcg (50,000 unit) capsule 50,000 units PO QWEEK 01/24/19 [History Last Taken Unknown] pravastatin 10 mg tablet 10 mg PO QHS 01/24/19 [History Last Taken Unknown] sertraline 100 mg tablet 100 mg PO DAILY 09/17/21 [History Last Taken Unknown] azithromycin 250 mg tablet See Rx Instructions PO .COMPLEX #6 tabs 08/04/22 [Rx Last Taken Unknown] Allergy/AdvReac Type Severity Reaction Status Date / Time Sulfa (Sulfonamide Allergy Rash Verified 12/08/22 14:11 Antibiotics) Family History Father Colon cancer Mother Heart disease Osteoporosis Surgical History History of colectomy History of hysterectomy History of partial thyroidectomy Social History Smoking Status: Current every day smoker tobacco type: cigarettes alcohol intake: never substance use type: does not use ROS ROS ED Constitutional Constitutional ED: Denies chills or fever(s) ENT ENT ED: Denies sore throat Cardiovascular Cardiovascular: Denies chest pain or palpitations Respiratory/Chest Respiratory/Chest: Denies cough or dyspnea Gastrointestinal Gastrointestinal: Denies nausea or vomiting Musculoskeletal Musculoskeletal: Reports arthralgias and other Details: Patient has some chronic back soreness but nothing new or different. ; Denies back pain, myalgias or neck pain Integumentary Denies abscess, Abrasions or rash Neurologic Neurologic: Denies paresthesias or weakness Hematologic/Lymphatic Hematologic/Lymphatic: Denies easy bleeding, easy bruising or lymphadenopathy Allergic/Immunologic Allergic/Immunologic ED: Denies urticaria EXAM Physical Exam Narrative Exam Narrative: Patient awake alert no acute distress sitting comfortably in bed. HEENT shows no trauma. No erythema. Heart is regular. I hear no murmur even at her age. Lungs are clear bilaterally and saturations are normal at 98% on room air. This is not hypoxic. There is no coughing. Abdomen soft nontender. Back shows no areas of tenderness. Extremities do show what appears to be a little bit of swelling really on the lateral aspect of the left ankle. It involves the area inferior and anterior to the lateral malleolus and goes back towards the Achilles tendon. But the Achilles tendon is not tender. It is also intact by palpation and Boyle test. No tenderness the calcaneus. There is a little bit of point tenderness right at the tip of the lateral malleolus. But there is absolutely 0 warmth or erythema. Patient can actively and passively move the ankle [id number] without any pain. There is no indication of infection whatsoever. No distended veins. There does appear to be a slight amount of fullness of the calf on the left compared to the right. But it is only about 1 cm larger. Veins are not distended and I feel no cord. Const Vital Signs: 12/08/22 14:11 Temperature 97.2 F L Temperature Source Temporal Pulse Rate 101 H Respiratory Rate 14 Blood Pressure 110/85 H Blood Pressure Mean 93 Pulse Ox 98 Oxygen Delivery Method Room Air MDM MDM MDM Narrative Medical decision making narrative: There is absolutely no clinical indication or suspicion of infection at this time. I think this is likely an arthritic flare because it hurts which when she moves it certain ways, there is a little bit of tenderness, and there is some mild swelling. But we will do x-ray to make sure we do not see any acute injury or fracture. I will also do ultrasound to evaluate for possibility of DVT. I do not think blood work would contribute to this as I have no clinical suspicion of infection. I spoke directly with the tech. The ultrasound of her leg is negative for DVT. My independent interpretation the patient's three-view x-ray of the left ankle shows no sign of acute process. Final reading is no acute bony injury. She has a 1 area that is tender. There is a little bit of swelling. There is a little bit of pain at times with weightbearing if she moves a certain way. I do not think this is really neurologic although she has had a lot of back issues that is not hurting and she does not have radiation all the way down the leg. She has localized pain with a little swelling. I think ice rest and her meloxicam should help. We did discuss specific reasons to return or follow-up for. Radiography Diagnostic Testing: Clinical Impression(s) from Imaging Studies Ankle X-Ray 12/08/22 16:08 IMPRESSION: No acute bony injury. Electronically Signed: Alvaro Maurice DO at 16:22 EDT Reading Location ID and State: [facility] / [place] Tel [phone], Service support , Discharge Plan Triage Chief Complaint: Lower Extremity Injury ED Provider: Kaushik Posada Dx/Rx/DC Orders Clinical Impression: Left lateral ankle pain, History of arthritis Instructions: ED Arthralgia Prescriptions: No Action azithromycin 250 mg tablet See Rx Instructions PO .COMPLEX Qty: 6 0RF Rx Instructions: take 500 mg today (day 1), then 250 mg for 4 days (days 2-5) PO levothyroxine 125 MCG tablet 125 mcg PO DAILY Patient Comments: THYROID omeprazole 20 MG capsule 40 mg PO DAILY Patient Comments: GERD lorazepam 1 MG tablet 1 mg PO QHS Patient Comments: ANXIETY meloxicam 15 MG tablet 15 mg PO DAILY Patient Comments: pain mirtazapine 15 MG tablet 45 mg PO QHS pravastatin 10 MG tablet 10 mg PO QHS cholecalciferol (vitamin D3) 50,000 UNIT capsule 50,000 units PO QWEEK Patient Comments: takes on sertraline 100 mg Tablet 100 mg PO DAILY Primary Care Provider: Zuly Blas Referrals: Zuly Blas DO [Primary Care Provider] - 3-5 Days if not improving Disposition Disposition: Home, Self Care
--- NOTE | 2022-12-08 16:08 | RAD_ITS ---
INDICATION: pain EXAMINATION/TECHNIQUE: X-RAY - LEFT XR Ankle 3 VIEWS COMPARISON: FINDINGS: SOFT TISSUES: No soft tissue swelling or gas. No radiopaque foreign body. BONES/JOINTS: No acute fracture or subluxation.. Normal alignment. Preservation of the joint space.. No sclerotic or destructive changes observed. RAD/Ankle min 3 Views IMPRESSION: No acute bony injury. Electronically Signed: Alvaro Maurice DO at 16:22 EDT ,
== END 2022-12-08 16:56 | disposition home or self-care (01) ==
PROVIDERS: Emergency Provider Emergency Medicine; PCP Family Medicine; Visit Provider Emergency Medicine
DX: M25.572 Pain in left ankle and joints of left foot (principal); Z85.038 Personal history of other malignant neoplasm of large intestine; Z85.850 Personal history of malignant neoplasm of thyroid; K21.9 Gastro-esophageal reflux disease without esophagitis; M19.90 Unspecified osteoarthritis, unspecified site; F41.8 Other specified anxiety disorders; Z79.899 Other long term (current) drug therapy; Z90.710 Acquired absence of both cervix and uterus; E89.0 Postprocedural hypothyroidism; Z90.49 Acquired absence of other specified parts of digestive tract; F17.210 Nicotine dependence, cigarettes, uncomplicated
CPT/HCPCS: 73610; 93971; 99282

== ENCOUNTER → 2023-01-22 | Outpatient (CLI) | payer MEDICARE, SELFPAY ==
--- NOTE | 2023-01-22 07:22 | BI_ITS ---
MAMMOGRAPHY - BILATERAL SCREENING REASON FOR EXAM: Female, 77 years old. Routine annual screening examination. PERTINENT HISTORY: Non-contributory. History of prior artery carcinoma and radiation. TECHNIQUE: Digital bilateral breast jhonny (3D mammographic acquisition) in the CC and MLO projections. 2-D mediolateral oblique (MLO) and craniocaudad (CC) views of both breasts were obtained. CAD: Full Field Digital Mammography with Computer Added Detection was performed. COMPARISON: Comparison is made with prior study dated January 21, 2022 and January 08, 2021. FINDINGS: Breast Composition: There are scattered areas of fibroglandular density. There are no dominant masses or suspicious calcifications. No other significant abnormalities are identified. There has been no significant change since the prior study. BI/SCRN MAMM (CAD)W/JHONNY BILAT IMPRESSION: Stable bilateral screening mammogram. Yearly follow-up mammogram recommended. (A) ASSESSMENT CATEGORY: BIRADS Category 1: Negative. A letter regarding these results will be sent to the patient by the facility within 30 days. Approximately 10% of breast cancers are not detected by mammography. A normal mammogram should not delay biopsy of a clinically suspicious abnormality. [id number] Electronically Signed: Jluis Bravo MD at 11:18 EDT ,
== END | disposition home or self-care (01) ==
PROVIDERS: PCP Family Medicine; Referring Provider Family Medicine; Visit Provider Family Medicine
DX: Z12.31 Encounter for screening mammogram for malignant neoplasm of breast (principal)
CPT/HCPCS: 77063; 77067

== ENCOUNTER → 2023-02-25 | Outpatient (CLI) | payer MEDICARE, SELFPAY ==
[2023-02-25 15:20] LABS: Absolute Lymphocyte Count 1.07 X10^3/uL (0.83-4.51); Absolute Neutrophil Count 3.1 X10^3/uL (2.0-7.7); Basophil# 0.06 X10^3/uL; Basophil% 1.3 % (0-1); Eosinophil# 0.13 X10^3/uL; Eosinophils% 2.8 % (0-5); Hematocrit 41.4 % (37-47); Hemoglobin 13.2 g/dL (12.0-15.0); Lymphocyte # 1.07 X10^3/ul (0.83-4.51); Lymphocyte % 22.7 % (19-41); Mean Corp Hgb Conc 31.9 g/dL (32-36); Mean Corpuscular Hgb 29.3 pg (27.0-32.0); Monocyte# 0.33 X10^3/uL; NRBC Flagged by Analyzer 0 % (0-5); Neutrophil % 65.6 % (47-70); Platelet Count 257 K/mm3 (150-450); RBC Distribution Width CV 15.1 % (11.6-14.6); RBC Distribution Width SD 51.2 fl (35.1-43.9); White Blood Count 4.7 K/mm3 (4.4-11.0)
[2023-02-25 15:44] LABS: ALB/GLOB Ratio 0.9 RATIO (0.9-2.4); AST(SGOT) 24 U/L (15-37); Alanine Aminotransfer ALT/SGPT 18 U/L (13-56); Albumin, Serum 3.2 g/dL (3.2-5.0); Alkaline Phosphatase 163 U/L (45-117); Anion Gap 8 (5-15); BUN 10 mg/dL (7-18); BUN/Creat Ratio 11.2 RATIO (10-20); Calcium,Total 8.5 mg/dL (8.5-10.1); Chloride 102 mmol/L (98-107); Creatinine, Serum 0.89 mg/dL (0.55-1.02); EST Glomerular Filtration Rate 65 mL/min (>60); Est Glom Filt Rate - Afr Amer 79 mL/min (>60); Free T3 2.2 pg/mL (2.18-3.98); Globulin 3.7 g/dL (2.2-4.2); Glucose 104 mg/dL (74-106); Potassium 4.3 mmol/L (3.5-5.1); Protein, Total 6.9 g/dL (6.4-8.2); Sodium Level 136 mmol/L (136-145); T4 Free Direct 1.13 ng/dL (0.76-1.46); Thyroid Stim Hormone (TSH) 0.75 uIU/mL (0.358-3.74)
== END | disposition home or self-care (01) ==
LOC: BFHLAB 11:38
PROVIDERS: PCP Family Medicine; Visit Provider Family Medicine
DX: E03.9 Hypothyroidism, unspecified (principal); Z51.81 Encounter for therapeutic drug level monitoring
CPT/HCPCS: 36415; 80053; 84439; 84443; 84481; 85025

== ENCOUNTER → 2023-07-27 | Outpatient (CLI) | payer MEDICARE, SELFPAY ==
--- NOTE | 2023-07-27 14:32 | RAD_ITS ---
STUDY: X-RAY - LEFT TIBIA AND FIBULA REASON FOR EXAM: Female, 78 years old. monica cat bite TECHNIQUE: 2 view(s) of the tibia and fibula were obtained. COMPARISON: None. FINDINGS: Normal visualized tibia. Normal visualized fibula. The soft tissue structures are unremarkable. RAD/Tibia & Fibula 2 Views IMPRESSION: Normal x-ray examination of the tibia and fibula. Electronically Signed: Jluis Bravo MD at 14:48 EDT ,
== END | disposition home or self-care (01) ==
PROVIDERS: PCP Family Medicine; Referring Provider Physician Assistant; Visit Provider Physician Assistant
DX: S81.852A Open bite, left lower leg, initial encounter (principal); W55.01XA Bitten by cat, initial encounter
CPT/HCPCS: 73590

== ENCOUNTER 2023-07-31 07:32 | Day surgery (SDC) | payer MEDICARE, SELFPAY ==
[2023-07-31] VITALS (7 sets, daily range): BP systolic 89–110; BP diastolic 53–66; PULSE 77–86; RESP 16; TEMP 36.2–36.6; O2SAT 93–99; BMI 22.3
[2023-07-31] MEDS: Lactated Ringers 1,000 ML 15 ML IV (08:13)
--- NOTE | 2023-07-31 08:25 | PCM.HP.BLA ---
History and Physical Date of Admission: 07/31/23 Intake Vital Signs 12/08/2313:11 07/08/2408:03 Height 5 ft 2 in 5 ft 1.6 in Weight: 131 lb BMI 24.3 BP 120/77 Blood Pressure Location Rt brachial Position Sitting Respiration 18 Pulse 84 Pulse Source Monitor Temp 97.4 F L Temp Source Temporal Pulse Oximetry (%) 98 Oxygen Delivery Method room air Intake Visit Reasons: SCREENING COLONOSCOPY Chief Complaint: C-Scope Silk Presser Required: No Is patient in pain?: No Allergies Sulfa (Sulfonamide Antibiotics) Allergy (Verified 07/09/23 09:05) Rash Medications lorazepam 1 mg tablet 1 mg PO QHS 06/11/13 [History Confirmed 07/09/23] omeprazole 20 mg capsule,delayed release 40 mg PO DAILY GERD 06/11/13 [History Confirmed 07/09/23] meloxicam 15 mg tablet 15 mg PO DAILY 06/12/13 [History Confirmed 07/09/23] mirtazapine 15 mg tablet 45 mg PO QHS sleep 03/18/14 [History Confirmed 07/09/23] cholecalciferol (vitamin D3) 1,250 mcg (50,000 unit) capsule 50,000 units PO QWEEK 01/24/19 [History Confirmed 07/09/23] pravastatin 10 mg tablet 10 mg PO QHS 01/24/19 [History Confirmed 07/09/23] levothyroxine 125 mcg tablet 100 mcg PO DAILY 07/09/23 [History Confirmed 07/09/23] liothyronine 5 mcg tablet 5 mcg PO DAILY 07/09/23 [History Confirmed 07/09/23] sertraline 100 mg tablet 150 mg PO DAILY 07/09/23 [History Confirmed 07/09/23] PFSH Medical History Arthritis Back problem COPD (chronic obstructive pulmonary disease) Depression with anxiety Diarrhea GERD (gastroesophageal reflux disease) History of back problems History of colon cancer History of thyroid cancer Smoking hx Surgical History (Updated 07/09/23 @ 09:00 by Mikala Christian) History of colectomy History of hysterectomy History of partial thyroidectomy Family History Father Colon cancerMother Heart disease Osteoporosis Social History Smoking Status: Current every day smoker tobacco type: cigarettes alcohol intake: never substance use type: does not use HPI HPI HPI: Patient is a 70-year-old female here for GERD and for surveillance colonoscopy. She had a right hemicolectomy for colon cancer in 2010. Patient reports she has been having diarrhea since the surgery. She also reports her acid reflux has been getting worse. She said it is worst at night. ROS General General: Yes colon cancer; No weight change, appetite, fatigue, breast cancer or weakness HEENT HEENT: No difficulty swallowing, eye injury, eye surgery, swollen glands or hoarseness Endo Endocrine: Yes thyroid disease; No diabetes mellitus, thyroid cancer, Hair loss, heat intolerance or cold intolerance Skin Skin: No rash or changing moles Breast Breast: No left breast lump, right breast lump, nipple discharge, breast pain, abnormal mammogram, abnormal US or breast enlargement Musc Musculoskeletal: Yes back problems, arthritis, rheumatoid arthritis and joint pain; No gout Cardio Cardiovascular: No murmur, pacemaker, heart disease, atrial fibrillation, high blood pressure, heart attack, heart stent, palpitations, shortness of breat with exertion or chest pain Psych Psychiatric: Yes depression and anxiety; No hearing voices Resp Respiratory: No shortness of breath, No sleep apnea, Yes cough, Yes COPD, No asthma, No emphysema and No wheezing Gastro Gastrointestinal: Yes abdominal pain, Yes nausea or vomiting, Yes diarrhea, No constipation, No blood in stool, Yes acid reflux, Yes hemorrhoids, No ulcers, No gallbladder problem and No black,tarry stools Osvaldo Hematologic: No blood thinners, No blood disorders, No bleeding, No anemia and No blood clots Neuro Neurologic: No system reviewed and no additional complaints, except as documented, No as per HPI, No abnormal gait, No abnormal hearing, No abnormal movements, No abnormal speech, No behavioral changes, No burning sensations, No confusion, No convulsions, No disequilibrium, No dizziness, No localized weakness, No frequent falls, No headache(s), No lack of coordination, No loss of vision, No memory loss, No numbness, No other visual disturbances, No radicular pain, No restless legs, No sensory deficit, No syncope, No tingling, No tremor(s), No weakness and No other Exam Const General: cooperative Orientation: alert and oriented x3 HENMT Head: normal to inspection Neck Neck: normal visual inspection and full ROM Chest Chest palpation & inspection: normal inspection of the chest Resp Effort & Inspection: normal respiratory effort Auscultation: clear to auscultation bilaterally Cardio Rate: regular rate Rhythm: regular rhythm GI Inspection: non-distended Palpation: soft and nontender Skin General: no rashes or lesions noted Neuro General: patient alert and patient oriented x3 Extrem General: full ROM Psych Appearance: grossly normal Mental Status: mental status grossly normal Assessment and Plan Assessment and Plan (1) History of gastroesophageal reflux (GERD): Status: Chronic Plan: Patient has a history of GERD and reports her GERD has been getting worse. I advised her to try taking omeprazole twice a day and I will perform EGD to evaluate her esophagus and stomach. (2) History of colon cancer: Status: Acute Plan: Patient is due for surveillance colonoscopy as she had colon cancer in 2010. Her last colonoscopy was 5 years ago. It was normal. She reports diarrhea but she says has been chronic since her colectomy. Gareth Steven MD Pager: [facility] [address] [place] [address] [address] [place] [address] Office: I have examined the patient and the H&P has been reviewed. There are no clinical changes since date of exam.
--- NOTE | 2023-07-31 09:19 | OP.CCLET_ITS ---
07/31/2023 Zuly Blas [address] [place] [address] Re : Upper GI endoscopy procedure for Sonia Noble Dear Dr. Blas This procedure was performed on Monday, July 31, 2023. My impressions and recommendations are as follows: Impressions : - Large hiatal hernia. - Normal stomach. - Normal examined duodenum. - No specimens collected. Recommendations : - Discharge patient to home. - Resume previous diet. - Continue present medications. My findings are described in the full procedure note, which is enclosed. If I can be of further assistance, please feel free to contact me at Doctor phone number(s): , Work: . Sincerely, Gareth Steven MD 07/31/2023 9:19:14 AM This report has been signed electronically.
--- NOTE | 2023-07-31 09:19 | OP.EGD_ITS ---
Patient Name: Sonia Noble Procedure Date: 07/31/2023 8:30 AM Date of : 1945 Age: 78 Procedure: Upper GI endoscopy Indications: Esophageal reflux, Gastro-esophageal reflux disease Providers: Gareth Steven MD Referring MD: Zuly Blas Medicines: General Anesthesia Patient Profile: This is a 78 year old female. Refer to note in patient chart for documentation of history and physical. Complications: No immediate complications. Estimated blood loss: Minimal. Procedure: Pre-Anesthesia Assessment: - Prior to the procedure, a History and Physical was performed, and patient medications and allergies were reviewed. The patient's tolerance of previous anesthesia was also reviewed. The risks and benefits of the procedure and the sedation options and risks were discussed with the patient. All questions were answered, and informed consent was obtained. Prior Anticoagulants: The patient has taken no anticoagulant or antiplatelet agents. After reviewing the risks and benefits, the patient was deemed in satisfactory condition to undergo the procedure. After obtaining informed consent, the endoscope was passed under direct vision. Throughout the procedure, the patient's blood pressure, pulse, and oxygen saturations were monitored continuously. The Endoscope was introduced through the mouth, and advanced to the second part of duodenum. The upper GI endoscopy was accomplished without difficulty. The patient tolerated the procedure well. Scope In: 8:42:41 AM Scope Out: 8:44:47 AM Total Procedure Duration Time 0 hours 2 minutes 6 seconds Findings: A large hiatal hernia was present. The stomach was normal. The examined duodenum was normal. Impression: - Large hiatal hernia. - Normal stomach. - Normal examined duodenum. - No specimens collected. Recommendation: - Discharge patient to home. - Resume previous diet. - Continue present medications. Procedure Code(s): --- Professional --- 73856, Esophagogastroduodenoscopy, flexible, transoral; diagnostic, including collection of specimen(s) by brushing or washing, when performed (separate procedure) Diagnosis Code(s): --- Professional --- K44.9, Diaphragmatic hernia without obstruction or gangrene K21.9, Gastro-esophageal reflux disease without esophagitis CPT copyright 2021 [employer]. All rights reserved. The codes documented in this report are preliminary and upon remote inpatient coder review may be revised to meet current compliance requirements. Gareth Steven MD 07/31/2023 9:19:14 AM This report has been signed electronically. Number of Addenda: 0 Note Initiated On: 07/31/2023 8:30 AM
--- NOTE | 2023-07-31 09:20 | OP.COLON_ITS ---
Patient Name: Sonia Noble Procedure Date: 07/31/2023 8:47 AM Date of : 1945 Age: 78 Procedure: Colonoscopy Indications: High risk colon cancer surveillance: Personal history of colon cancer Providers: Gareth Steven MD Referring MD: Zuly Blas Medicines: Propofol per Anesthesia Patient Profile: This is a 78 year old female. Refer to note in patient chart for documentation of history and physical. Refer to note in patient chart for documentation of history and physical. Last Colonoscopy: 5 years ago. Complications: No immediate complications. Procedure: Pre-Anesthesia Assessment: - Prior to the procedure, a History and Physical was performed, and patient medications and allergies were reviewed. The patient's tolerance of previous anesthesia was also reviewed. The risks and benefits of the procedure and the sedation options and risks were discussed with the patient. All questions were answered, and informed consent was obtained. Prior Anticoagulants: The patient has taken no anticoagulant or antiplatelet agents. After reviewing the risks and benefits, the patient was deemed in satisfactory condition to undergo the procedure. After I obtained informed consent, the scope was passed under direct vision. Throughout the procedure, the patient's blood pressure, pulse, and oxygen saturations were monitored continuously. The Colonoscope was introduced through the anus and advanced to the ileocolonic anastomosis. The colonoscopy was performed without difficulty. The patient tolerated the procedure well. The quality of the bowel preparation was good. The ileocecal valve, appendiceal orifice, and rectum were photographed. Scope In: 8:50:30 AM Scope Withdrawal Time 0 hours 4 minutes 0 seconds Scope Out: 9:00:09 AM Total Procedure Duration Time 0 hours 9 minutes 39 seconds Findings: The entire examined colon appeared normal on direct and retroflexion views. Impression: - The entire examined colon is normal on direct and retroflexion views. - No specimens collected. Recommendation: - Discharge patient to home. - Resume previous diet. - Continue present medications. - Repeat colonoscopy in 5 years for surveillance. Procedure Code(s): --- Professional --- 57318, Colonoscopy, flexible; diagnostic, including collection of specimen(s) by brushing or washing, when performed (separate procedure) Diagnosis Code(s): --- Professional --- Z85.038, Personal history of other malignant neoplasm of large intestine CPT copyright 2021 [employer] [place] [employer]. All rights reserved. The codes documented in this report are preliminary and upon surface water technician review may be revised to meet current compliance requirements. Gareth Steven MD 07/31/2023 9:20:25 AM This report has been signed electronically. Number of Addenda: 0 Note Initiated On: 07/31/2023 8:47 AM
--- NOTE | 2023-07-31 09:20 | OP.CCLET_ITS ---
07/31/2023 Zuly Blas [address] [place] [address] Re : Colonoscopy procedure for Sonia Noble Dear Dr. Blas This procedure was performed on Monday, July 31, 2023. My impressions and recommendations are as follows: Impressions : - The entire examined colon is normal on direct and retroflexion views. - No specimens collected. Recommendations : - Discharge patient to home. - Resume previous diet. - Continue present medications. - Repeat colonoscopy in 5 years for surveillance. My findings are described in the full procedure note, which is enclosed. If I can be of further assistance, please feel free to contact me at Doctor phone number(s): , Work: . Sincerely, Gareth Steven MD 07/31/2023 9:20:25 AM This report has been signed electronically.
== END 2023-07-31 10:10 | disposition home or self-care (01) ==
LOC: EN 07:35 → AC 07:35
PROVIDERS: PCP Family Medicine; Referring Provider Family Medicine; Visit Provider Surgery
PROC: 0DJD8ZZ Inspection of Lower Intestinal Tract, Via Natural or Artificial Opening Endoscopic (ICD-10-PCS; CPT 45378; principal; 2023-07-31 08:25)
DX: K21.9 Gastro-esophageal reflux disease without esophagitis (principal); J44.9 Chronic obstructive pulmonary disease, unspecified; K44.9 Diaphragmatic hernia without obstruction or gangrene; F41.8 Other specified anxiety disorders; Z85.038 Personal history of other malignant neoplasm of large intestine; Z85.850 Personal history of malignant neoplasm of thyroid; Z79.899 Other long term (current) drug therapy; Z90.49 Acquired absence of other specified parts of digestive tract; Z90.710 Acquired absence of both cervix and uterus; Z80.0 Family history of malignant neoplasm of digestive organs; F17.210 Nicotine dependence, cigarettes, uncomplicated
CPT/HCPCS: 43235; 45378; J7120; J2405

== ENCOUNTER → 2023-08-05 | Outpatient (CLI) | payer MEDICARE, SELFPAY | END | disposition home or self-care (01) | LOC: LABSPEC 15:06 | PROVIDERS: PCP Family Medicine; Referring Provider Physician Assistant; Visit Provider Physician Assistant | DX: T14.8XXA Other injury of unspecified body region, initial encounter (principal); L08.9 Local infection of the skin and subcutaneous tissue, unspecified; S81.852A Open bite, left lower leg, initial encounter; W55.01XA Bitten by cat, initial encounter | CPT/HCPCS: 87070; 87075; 87077; 87186; 87205 ==

== ENCOUNTER 2023-08-06 09:45 | Outpatient (RCR) | payer MEDICARE, SELFPAY ==
[2023-08-06 09:59] VITALS: BP 136/69; PULSE 94; RESP 18; TEMP 36.8; BMI 22.4
--- NOTE | 2023-08-06 11:48 | HP.PCM_ITS ---
History of Present Illness Date of Service: 08/06/23 Chief Complaint: No healing Left Leg Wound History of Wound: Ms. Noble is a 78-year-old who was referred here due to nonhealing left leg wound. Believes this started about 2 weeks ago. Not really sure about how it started but thinks she may have been scratched by her cat. Was seen at the urgent care and initially put on Augmentin however, due to nonhealing she represented. Following cleaning of the wound, cultures were taken. Also switched from Augmentin to metronidazole and doxycycline. She reports drainage. Has been applying bacitracin twice daily. No known history of diabetes. History of venous insufficiency status post procedure to her left lower extremity, has not been using her compression stockings. Smokes. Has not had any recent labs done. No chills, fever or otherwise feeling of unwell reported. [facility] Medical History (Updated 08/06/23 @ 12:[address] Ervin Darling MD) Arthritis Back problem Cat bite of left lower leg COPD (chronic obstructive pulmonary disease) Depression with anxiety Diarrhea GERD (gastroesophageal reflux disease) History of back problems History of colon cancer History of thyroid cancer Loss of hearing Open wound Puncture wound of left leg excluding thigh Smoking hx Tobacco abuse Venous (peripheral) insufficiency Wears dentures Wears hearing aid Home Medications lorazepam 1 mg tablet 1 mg PO QHS 06/11/13 [History Last Taken 06/11/13 1 mg] omeprazole 20 mg capsule,delayed release 40 mg PO BID GERD 06/11/13 [History Last Taken 07/31/23 06:30] meloxicam 15 mg tablet 15 mg PO DAILY 06/12/13 [History Last Taken 06/12/13 15 mg] cholecalciferol (vitamin D3) 1,250 mcg (50,000 unit) capsule 50,000 units PO QWEEK 01/24/19 [History Last Taken Unknown] pravastatin 10 mg tablet 10 mg PO QHS 01/24/19 [History Last Taken Unknown] liothyronine 5 mcg tablet 5 mcg PO DAILY 07/09/23 [History Last Taken Unknown] sertraline 100 mg tablet 150 mg PO DAILY 07/09/23 [History Last Taken Unknown] amoxicillin 875 mg-potassium clavulanate 125 mg tablet 1 tab PO BID #20 tabs 07/27/23 [Rx Last Taken Unknown] levothyroxine 100 mcg tablet 100 mcg PO DAILY 07/28/23 [History Last Taken 07/31/23 06:30] mirtazapine 45 mg tablet 45 mg PO QHS 07/28/23 [History Last Taken Unknown] doxycycline monohydrate 100 mg capsule 100 mg PO BID #20 caps 08/05/23 [Rx Last Taken Unknown] metronidazole 500 mg tablet 500 mg PO TID #30 tabs 08/05/23 [Rx Last Taken Unknown] Allergy/AdvReac Type Severity Reaction Status Date / Time Sulfa (Sulfonamide Allergy Rash Verified 08/05/23 11:36 Antibiotics) Family History Father Colon cancer Mother Heart disease Osteoporosis Surgical History History of colectomy History of hysterectomy History of partial thyroidectomy Social History Smoking Status: Current every day smoker tobacco type: cigarettes alcohol intake: never substance use type: does not use ROS Constitutional Constitutional: Reports poor appetite; Denies excessive sweating, fatigue, fever(s), headache(s), increased appetite or lethargy Eyes Eyes: Denies blindness, bloody eye, burning, change in eye color, discharge from eye(s), erythema or excessive blinking ENT HEENT: Denies dysphagia, epistaxis, headache(s), hearing loss, hoarseness, lip swelling, loss taste/smell or mouth lesions Cardiovascular Cardiovascular: Reports edema; Denies cold extremities, cyanosis, diaphoresis, dizziness, dyspnea at rest or erythema on extremities Respiratory/Chest Respiratory/Chest: Denies excessive phlegm production, hemoptysis, inability to speak, mouth breathing, nail bed cyanosis, shortness of breath at rest or tachypnea Gastrointestinal Gastrointestinal: Denies abdominal pain, chewing difficulty, coffee ground emesis, dry heaves or excessive flatus Genitourinary Genitourinary: Denies abdominal discomfort or flank pain Musculoskeletal Musculoskeletal: Denies atrophy, muscle spasms, muscle weakness, numbness, tingling or tremors Integumentary Integumentary: Reports skin ulcer; Denies acne, dry skin, hirsutism, jaundice, rash or skin swelling Neurologic Neurologic: Denies behavior changes, burning sensations, confusion, focal weakness, memory loss, restless legs or seizure-like activity Psychiatric Psychiatric: Denies auditory hallucinations, behavioral changes, hallucinations, irritability, tactile hallucinations or visual hallucinations Endocrine Endocrinology: Denies change in body appearance, deepening of the voice, excessive sweating, heat intolerance or increase in ring/shoe/hat size Hematologic/Lymphatic Hematologic/Lymphatic: Denies easy bleeding or easy bruising Allergic/Immunologic Allergic/Immunologic: Denies itchy eyes, lip swelling, throat swelling, tongue swelling, hives or wheezing Vital Signs Vital Signs Vital Signs: 08/06/23 09:59 Temperature 98.2 F Temperature Source Temporal Pulse Rate 94 Respiratory Rate 18 Blood Pressure 136/69 H Blood Pressure Mean 91 Blood Pressure Source Monitor Blood Pressure Position Semi-Fowlers Blood Pressure Location Left Arm Oxygen Delivery Method Room Air Weight Weight: 127 lb Body Mass Index (BMI) 22.4 Physical Exam Const alert, oriented x3 and no apparent distress General Appearance: cooperative, comfortable and well kempt HEENT normocephalic, head/scalp atraumatic and hearing grossly normal bilaterally Eyes EOMs intact bilaterally Neck full ROM General: normal visual inspection Resp normal respiratory effort Auscultation: diminished lung sounds Cardio regular rate, regular rhythm, S1 normal heart sound and S2 normal heart sound GI soft to palpation and non-tender Extremity General Extremity: edema Skin Wounds: wounds noted Neuro oriented x3, CN's II-XII intact bilaterally, moves all extremities and no focal motor deficits Psych mental status grossly normal, thought process normal, cooperative, affect normal and speech normal Debridement Note Debridement Note Wound debrided: Left Leg Type of Debridement: Excisional debridement Anesthesia Used: 5% Lidocaine Gel Depth: Down to and including healthy tissue and in the subcutaneous layer Percentage of wound debrided: 100 Instrument Used: 5mm curette Tissue Removed: Slough and devitalized tissue Severity: Fat Layer Exposed Amount of bleeding with debridement: Mild Bleeding Controlled with: Pressure Patient tolerated procedure: Patient tolerated procedure well Post-Debridement Measurements and Additional Note: Post-Debridement Measurements/Treatment WC - Nurse 1 - General Ulcer Assessment Start: 08/06/23 09:50 Freq: Status: Active Protocol: TANESHA Activity Type Activity Date Activity User E-sign Co-sign Detail Recorded Client Recorded Date Recorded By Document 08/06/23 09:59 KW Desktop 08/06/23 10:05 KW Edit Result 08/06/23 09:59 KW (1) Desktop 08/06/23 10:09 KW (1) Left - Posterior Tibial Doppler => Multiphasic - Dorsalis Pedis Doppler => Multiphasic 08/06/23 09:59 WC - Today's Visit Information Type of service Initial Visit Arrival Mode Ambulatory Accompanied by Patient Identification Verified (Name & Yes ) Height and Weight Height 5 ft 3 in Weight 127 lb Weight in Pounds 127.0 lbs Weight Measurement Method Estimated by Patient Body Mass Index (BMI) 22.4 BMI Classification Normal BSA - Kieran 1.59 Vital Signs Temperature (97.8 F-99.1 F) 98.2 F Temperature Source Temporal Pulse Rate (60-100) 94 Pulse Location Monitor Respiratory Rate (12-18) 18 Respiratory rate source Observation Oxygen Delivery Method Room Air Blood Pressure (90/60-120/80) 136/69 H Blood Pressure Mean 91 Source Monitor Position Semi-Fowlers Blood Pressure Location Left Arm Pain Scale: 0-10 Numeric Is Patient Pain Free? No LLE -Intensity 3 -Alleviating Factors/Interventions Medication Lower Extremity Assessment/ Foot Assessment/ Toe Nail Assessment Left -Posterior Tibial Palpable Yes -Posterior Tibial Doppler Multiphasic -Dorsalis Pedis Palpable Yes -Dorsalis Pedis Doppler Multiphasic -Extremity Color Normal -Hair Growth on Legs No -Hair Growth on Toes No -Temperature of Extremity Warm -Capillary Refill Less than 3 Seconds -Thick No -Discolored No -Deformed No -Improper Length & Hygeine No Communication Assessment Preferred language Marshallese Social Work Supervisor Required No Able to Read Yes Able to Write Yes Communication Tools None Caregiver Communication Skills No Impairment Impairment Right Hearing Abillity Use of Hearing Aid Left Hearing Abillity Use of Hearing Aid Visual Assistive Devices Glasses Teaching Assessment Preferences Verbal,Written Barriers to Learning None Readiness To Learn Excellent Willingness to Engage in Self Management High Activies Readiness to Engage in Self Management High Activities Anxiety Level Calm Cooperation Cooperative Perception Coherent Interest in Health Problem Asks Questions Education Importance Acknowledges Need Does Patient Smoke tobacco or other Yes substances Smoking Status Current every day smoker Is Patient Diabetic No Functional Assessment Recent Decline in Ability to Perform Denies Any Declines Culture/Roman Catholic/Screwhead Polisher Cultural/Roman Catholic Needs that may affect No Treatment Plan Would you allow our hospital shoe repairer apprentice to No meet you for the purpose of spiritual/ emotional support? Screwhead Polisher to contact place of rastafari No WC - Nurse 1 - General Ulcer Measurement Start: 08/06/23 09:50 Freq: Status: Active Protocol: Activity Type Activity Date Activity User E-sign Co-sign Detail Recorded Client Recorded Date Recorded By Document 08/06/23 09:59 KW Desktop 08/06/23 10:05 08/06/23 09:59 Wound Center Nurse 1 #1 LT ANTERIOR LE -Current Size (cm) - Length 1.2 -Current Size (cm) - Width 1.7 -Current Size (cm) - Depth 0.3 -Total Square Cm 2.04 -Date of Last Picture (Recall this 08/06/23 field) -Photo Taken Yes -Exudate Amt Medium -Exudate Type Yellow/Green -Wound Margin Distinct, Outline Attached -Granulation Amt Small (1-33%) -Granulation Quality Red -Necrosis Amt Large (67-100%) -Necrotic Tissue Type Adherent Slough -Texture (Florina-wound Skin Appearance) Assessed -Moisture (Florina-wound Skin Appearance) Assessed -Color (Florina-wound Skin Appearance) Assessed, Erythema -Temperature (Florina-wound Skin No Abnormality Appearance) (Pt Warm) -Ulcer Cleansing Soap and Water -Anesthetic Used 5% Lidocaine Gel Left Calf (cm) 35 Left Ankle (cm) 24.8 WC - Nurse 2 - General Ulcer CM Notes Start: 08/06/23 09:50 Freq: Status: Active Protocol: Activity Type Activity Date Activity User E-sign Co-sign Detail Recorded Client Recorded Date Recorded By Document 08/06/23 10:31 Desktop 08/06/23 10:32 08/06/23 10:31 Wound Center Nurse 2 #1 LT ANTERIOR LE -Time 10:31 -Correct Patient Yes -Correct Side, Site, Position Yes -Correct Procedure Yes -Procedure Performed Yes -Type of Procedure Debridement -Tissue Removed Epidermis, Subcutaneous -Post Debridement (cm) - Length 1.5 -Post Debridement (cm) - Width 2.0 -Post Debridement (cm) - Depth 0.4 -Total Square (Post) (cm) 3.00 -Area of Debridement (cm) - Length 1.5 -Area of Debridement (cm) - Width 2.0 -Total Square (Area) (cm) 3.00 -Tunneling No -Undermining/Tunneling No -Circular Undermining No -Wound/Ulcer Outcome Not Healed -Ulcer Cleansing Rinsed/ Irrigated with Saline -Foul Odor after Cleansing No -Bioengineered Tissue No -Bleeding Controlled with Pressure -Treatment Response Procedure Tolerated Well -Debridement - Subq, 1st 20sq cm Yes Pain Scale: 0-10 Numeric Is Patient Pain Free? Yes - Nurse 3 - General Ulcer D/C NN Start: 08/06/23 09:50 Freq: Status: Active Protocol: Activity Type Activity Date Activity User E-sign Co-sign Detail Recorded Client Recorded Date Recorded By Document 08/06/23 10:34 GM Desktop 08/06/23 10:35 GM 08/06/23 10:34 Wound Care Center Nurse 3 #1 LT ANTERIOR LE -Primary Dressing Applied Promogran -Primary Dressing Covered/Secured with Dry Gauze & Roll Gauze, Secured with Tape -Promogran 2 Left -Tubular Bandage Double Layer -Size of Tubigrip Used Size D -Size D ($) 2 Pain Scale: 0-10 Numeric Is Patient Pain Free? Yes WC - Visit Discharge Discharge Condition Stable Ambulatory Status Ambulatory Transportation Private Auto Accompanied by Medication Reconcilliation completed & No provided to patient/care provider Clinical Summary of Care Provided Yes Charges/Coding Visit Charges Office Visits / Consults: 07014 OV L4 New 45min Procedures Integumentary 111xxx-113xx: [id number] Ainsley subq tissue 20 sq cm/< Assessment/Plan Assessment/Plan (1) Puncture wound of left leg excluding thigh: CODE(S): S81.832A - Puncture wound without foreign body, left lower leg, initial encounter QUALIFIERS: Encounter type: initial encounter Qualified Code(s): S81.832A - Puncture wound without foreign body, left lower leg, initial encounter (2) Cat bite of left lower leg: CODE(S): S81.852A - Open bite, left lower leg, initial encounter; W55.01XA - Bitten by cat, initial encounter QUALIFIERS: Encounter type: initial encounter Qualified Code(s): S81.852A - Open bite, left lower leg, initial encounter; W55.01XA - Bitten by cat, initial encounter (3) Tobacco abuse: CODE(S): Z72.0 - Tobacco use (4) History of COPD: CODE(S): Z87.09 - Personal history of other diseases of the respiratory system (5) Venous (peripheral) insufficiency: CODE(S): I87.2 - Venous insufficiency (chronic) (peripheral) PLAN: Plan Debridement done as documented above, procedure was well-tolerated. Nonhealing left leg/lower extremity wound. ??? Cat bite. She states that she was trying to separate 2 cats and believes that the injury happened afterwards. Not exactly sure of how it happened. Has been seen at an urgent care and measures so far have not been helpful. Cultures taken after debridement, labs also ordered. Will review. For now, Promogran daily, cover with ABD. Double layer Tubigrip for compression. History of venous insufficiency. Leg elevation, exercise as tolerated also discussed. She endorses that her appetite is not so good overall, protein supplements recommended. Increase intake of protein rich foods. Vitamin C, D and zinc also discussed, she voiced understanding. Questions were answered and she was advised to let us know if she has any further questions or concerns. In a week or sooner if needed. This note was generated with [employer] dictation software. It may contain incorrect words, spelling, and punctuation that were not noted in checking the note before signing.
--- NOTE | 2023-08-07 10:04 | WC ---
08/06/2023 (I) LEFT ANTERIOR LE
== END 2023-08-11 23:59 | disposition home or self-care (01) ==
LOC: WC 09:45
PROVIDERS: PCP Family Medicine; Referring Provider Physician Assistant; Visit Provider Internal Medicine
DX: S81.832A Puncture wound without foreign body, left lower leg, initial encounter (principal); J44.9 Chronic obstructive pulmonary disease, unspecified; S81.852A Open bite, left lower leg, initial encounter; F17.200 Nicotine dependence, unspecified, uncomplicated; F41.8 Other specified anxiety disorders; I87.2 Venous insufficiency (chronic) (peripheral); Z82.62 Family history of osteoporosis; W55.01XA Bitten by cat, initial encounter
CPT/HCPCS: 11042; 87070; 87075; 87077; 87186; 87205; 99213; G0463

== ENCOUNTER → 2023-08-06 | Outpatient (CLI) | payer MEDICARE, SELFPAY ==
[2023-08-06 15:08] LABS: Absolute Lymphocyte Count 1.45 X10^3/uL (0.83-4.51); Absolute Neutrophil Count 7.3 X10^3/uL (2.0-7.7); Basophil# 0.06 X10^3/uL; Basophil% 0.6 % (0-1); Eosinophil# 0.07 X10^3/uL; Eosinophils% 0.7 % (0-5); Hemoglobin 12.7 g/dL (12.0-15.0); Lymphocyte # 1.45 X10^3/ul (0.83-4.51); Lymphocyte % 15.4 % (19-41); Mean Corp Hgb Conc 32.6 g/dL (32-36); Mean Corpuscular Hgb 29.3 pg (27.0-32.0); Mean Corpuscular Volume 89.9 fL (81-99); Mean Platelet Vol. 10.9 fl (6.2-12.0); Monocyte# 0.49 X10^3/uL; Monocyte% 5.2 % (0-10); NRBC Flagged by Analyzer 0 % (0-5); Neutrophil # 7.31 X10^3/uL (2.7-7.7); Neutrophil % 77.7 % (47-70); Platelet Count 237 K/mm3 (150-450); RBC Distribution Width CV 14.1 % (11.6-14.6); RBC Distribution Width SD 46.5 fl (35.1-43.9); Red Blood Count 4.34 M/mm3 (4.2-5.4); White Blood Count 9.4 K/mm3 (4.4-11.0)
[2023-08-06 18:57] LABS: ALB/GLOB Ratio 0.9 RATIO (0.9-2.4); AST(SGOT) 24 U/L (15-37); Alanine Aminotransfer ALT/SGPT 20 U/L (13-56); Albumin, Serum 3.5 g/dL (3.2-5.0); Alkaline Phosphatase 130 U/L (45-117); Anion Gap 7 (5-15); BUN 10 mg/dL (7-18); BUN/Creat Ratio 10.7 RATIO (10-20); CRP 6.76 mg/L (0.0-3.0); Calcium,Total 9.4 mg/dL (8.5-10.1); Chloride 103 mmol/L (98-107); Creatinine, Serum 0.94 mg/dL (0.55-1.02); EST Glomerular Filtration Rate 62 mL/min (>60); Est Glom Filt Rate - Afr Amer 75 mL/min (>60); Globulin 3.7 g/dL (2.2-4.2); Glucose 86 mg/dL (74-106); Potassium 4.1 mmol/L (3.5-5.1); Protein, Total 7.2 g/dL (6.4-8.2); Sodium Level 137 mmol/L (136-145)
== END | disposition home or self-care (01) ==
LOC: MTLAB 13:42
PROVIDERS: PCP Family Medicine; Referring Provider Internal Medicine; Visit Provider Internal Medicine
DX: S81.809A Unspecified open wound, unspecified lower leg, initial encounter (principal)
CPT/HCPCS: 36415; 80053; 84134; 85025; 86140

== ENCOUNTER 2023-09-10 09:30 | Outpatient (RCR) | payer MEDICARE, SELFPAY ==
[2023-08-12 00:58] VITALS: BP 136/69; PULSE 94; RESP 18; TEMP 36.8; BMI 22.4
[2023-08-13 09:36] VITALS: BP 126/57; PULSE 80; RESP 18; TEMP 36.1; BMI 22.4
--- NOTE | 2023-08-13 10:22 | PN.PCM_ITS ---
History of Present Illness Date of Service: 08/13/23 Chief Complaint: No healing Left Leg Wound History of Wound: Ms. Noble is a 78-year-old who was referred here due to nonhealing left leg wound. Believes this started about 2 weeks ago. Not really sure about how it started but thinks she may have been scratched by her cat. Was seen at the urgent care and initially put on Augmentin however, due to nonhealing she represented. Following cleaning of the wound, cultures were taken. Also switched from Augmentin to metronidazole and doxycycline. She reports drainage. Has been applying bacitracin twice daily. No known history of diabetes. History of venous insufficiency status post procedure to her left lower extremity, has not been using her compression stockings. Smokes. Has not had any recent labs done. No chills, fever or otherwise feeling of unwell reported. Progress of Wound: No new concerns at this time. Less pain and some improvement reported by patient. Objective Data Objective Data Vital Signs: Vital Signs Temp Pulse Resp BP 97 F L 80 18 126/57 H 08/13/23 09:36 08/13/23 09:36 08/13/23 09:36 08/13/23 09:36 Weight: 127 lb Body Mass Index (BMI) 22.4 Charges/Coding Procedures Integumentary 111xxx-113xx: [id number] Ainsley subq tissue 20 sq cm/< Physical Exam Const alert, oriented x3 and no apparent distress General Appearance: cooperative, comfortable and well kempt HEENT normocephalic, head/scalp atraumatic and hearing grossly normal bilaterally Eyes EOMs intact bilaterally Neck full ROM General: normal visual inspection Resp normal respiratory effort Extremity General Extremity: edema Skin Wounds: wounds noted Neuro oriented x3, CN's II-XII intact bilaterally, moves all extremities and no focal motor deficits Psych mental status grossly normal, thought process normal, cooperative, affect normal and speech normal Debridement Note Debridement Note Wound debrided: Left Leg Type of Debridement: Excisional debridement Anesthesia Used: 5% Lidocaine Gel Depth: Down to and including healthy tissue and in the subcutaneous layer Percentage of wound debrided: 100 Instrument Used: 5mm curette Tissue Removed: Slough and devitalized tissue Severity: Fat Layer Exposed Amount of bleeding with debridement: Mild Bleeding Controlled with: Pressure Patient tolerated procedure: Patient tolerated procedure well Post-Debridement Measurements and Additional Note: Post-Debridement Measurements/Treatment WC - Nurse 1 - General Ulcer Assessment Start: 08/13/23 09:36 Freq: Status: Active Protocol: TANESHA Activity Type Activity Date Activity User E-sign Co-sign Detail Recorded Client Recorded Date Recorded By Document 08/13/23 09:36 RB Desktop 08/13/23 09:41 RB 08/13/23 09:36 WC - Today's Visit Information Type of service 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 ) Arrival Mode Ambulatory Transfer Assistance None Patient Identification Verified (Name & Yes ) Patient Requires Transmission-Based No Precautions Height and Weight Body Mass Index (BMI) 22.4 BMI Classification Normal Vital Signs Temperature (97.8 F-99.1 F) 97 F L Temperature Source Temporal Pulse Rate (60-100) 80 Pulse Location Monitor Respiratory Rate (12-18) 18 Respiratory rate source Observation Blood Pressure (90/60-120/80) 126/57 H Blood Pressure Mean (mm Hg) 80 Source Monitor Position Semi-Fowlers Blood Pressure Location Left Arm History Since Last Visit- (Skip if this is Patient's initial visit) Have you changed medications since your No last visit? Any new allergies or adverse reactions No Had a fall/change in ADL's that may No increase risk of falls Signs or symptoms of abuse and/or No neglect since last visit Have you been in the hospital since your No last visit? Has dressing in place as prescribed Yes Has compression in place as prescribed Yes Has offloadiing in place as prescribed No Experienced any changes in pain level or No management Pain Scale: 0-10 Numeric Is Patient Pain Free? Yes - Nurse 1 - General Ulcer Measurement Start: 08/13/23 09:36 Freq: Status: Active Protocol: Activity Type Activity Date Activity User E-sign Co-sign Detail Recorded Client Recorded Date Recorded By Document 08/13/23 09:36 RB Desktop 08/13/23 09:41 RB 08/13/23 09:36 Wound Center Nurse 1 #1 LT ANTERIOR LE -Combined with other wound No -Current Size (cm) - Length 1.3 -Current Size (cm) - Width 1.5 -Current Size (cm) - Depth 0.4 -Total Square Cm 1.95 -Tunneling No -Undermining/Tunneling No -Circular Undermining No -Exudate Amt Medium -Exudate Type Serosanguineous -Wound Margin Distinct, Outline Attached -Granulation Amt Medium (34-66%) -Granulation Quality [place] -Slough/Fibrin Yes -Necrosis Amt Medium (34-66%) -Necrotic Tissue Type Adherent Slough -Structure Exposed N/A -Texture (Florina-wound Skin Appearance) Assessed -Moisture (Florina-wound Skin Appearance) Assessed -Color (Florina-wound Skin Appearance) Assessed -Temperature (Florina-wound Skin No Abnormality Appearance) (Pt Warm) -Tenderness on Palpation (Florina-wound No Skin Appearance) -Ulcer Cleansing Wound Cleanser -Foul Odor after Cleansing No -Anesthetic Used 5% Lidocaine Gel Lower Limb Edema Present Yes Left Calf (cm) 33.6 Left Ankle (cm) 23.5 WC - Nurse 2 - General Ulcer CM Notes Start: 08/13/23 09:36 Freq: Status: Active Protocol: Activity Type Activity Date Activity User E-sign Co-sign Detail Recorded Client Recorded Date Recorded By Document 08/13/23 09:52 Desktop 08/13/23 09:54 08/13/23 09:52 Wound Center Nurse 2 #1 LT ANTERIOR LE -Time 09:52 -Correct Patient Yes -Correct Side, Site, Position Yes -Correct Procedure Yes -Procedure Performed Yes -Type of Procedure Debridement -Clinical Debridement Subcutaneous -Tissue Removed Subcutaneous -Post Debridement (cm) - Length 1.5 -Post Debridement (cm) - Width 1.5 -Post Debridement (cm) - Depth 0.4 -Total Square (Post) (cm) 2.25 -Area of Debridement (cm) - Length 1.5 -Area of Debridement (cm) - Width 1.5 -Total Square (Area) (cm) 2.25 -Tunneling No -Undermining/Tunneling No -Circular Undermining No -Wound/Ulcer Outcome Not Healed -Ulcer Cleansing Rinsed/ Irrigated with Saline -Foul Odor after Cleansing No -Bioengineered Tissue No -Bleeding Controlled with Pressure -Treatment Response Procedure Tolerated Well -Debridement - Subq, 1st 20sq cm Yes Pain Scale: 0-10 Numeric Is Patient Pain Free? Yes - Nurse 3 - General Ulcer D/C NN Start: 08/13/23 09:36 Freq: Status: Active Protocol: Activity Type Activity Date Activity User E-sign Co-sign Detail Recorded Client Recorded Date Recorded By Document 08/13/23 10:16 RB Desktop 08/13/23 10:17 RB 08/13/23 10:16 Wound Care Center Nurse 3 #1 LT ANTERIOR LE -Ulcer Cleansing dakins gauze soaked wound 5 min -Primary Dressing Applied Promogran -Other Dressing abd -Primary Dressing Covered/Secured with Dry Gauze & Roll Gauze, Secured with Tape -Promogran 1 Right -Stockings Yes Left -Stockings Yes Treatment Response Procedure Tolerated Well Pain Scale: 0-10 Numeric Is Patient Pain Free? Yes WC - Visit Discharge Discharge Condition Stable Ambulatory Status Ambulatory Transportation Private Auto Medication Reconcilliation completed & No provided to patient/care provider Clinical Summary of Care Provided Yes Assessment/Plan Assessment/Plan (1) Puncture wound of left leg excluding thigh: CODE(S): S81.832A - Puncture wound without foreign body, left lower leg, initial encounter QUALIFIERS: Encounter type: initial encounter Qualified Code(s): S81.832A - Puncture wound without foreign body, left lower leg, initial encounter (2) Cat bite of left lower leg: CODE(S): S81.852A - Open bite, left lower leg, initial encounter; W55.01XA - Bitten by cat, initial encounter QUALIFIERS: Encounter type: initial encounter Qualified Code(s): S81.852A - Open bite, left lower leg, initial encounter; W55.01XA - Bitten by cat, initial encounter (3) Tobacco abuse: CODE(S): Z72.0 - Tobacco use (4) History of COPD: CODE(S): Z87.09 - Personal history of other diseases of the respiratory system (5) Venous (peripheral) insufficiency: CODE(S): I87.2 - Venous insufficiency (chronic) (peripheral) PLAN: Plan Debridement done as documented above, procedure was well-tolerated. Some improvement noted. As above, she also states that she has had less pain. Cultures reviewed, rare growth of Pseudomonas. Will avoid oral antibiotics at this time and recommend 30 minutes Dakins soak daily. Also continue Promogran daily, cover with ABD. History of venous insufficiency continue compression with compression socks. Leg elevation, exercise as tolerated also discussed. Continue optimal protein intake, vitamin C, D and zinc. Her questions were answered and she was advised to let us know if she has any further questions or concerns. Follow-up in a week or sooner if needed. This note was generated with [employer] software. It may contain incorrect words, spelling, and punctuation that were not noted in checking the note before signing.
[2023-08-20 09:30] VITALS: BP 150/70; PULSE 90; RESP 18; TEMP 36.4; BMI 22.4
--- NOTE | 2023-08-20 10:33 | PCM.WC.PN ---
History of Present Illness Date of Service: 08/20/23 Chief Complaint: No healing Left Leg Wound History of Wound: Ms. Noble is a 78-year-old who was referred here due to nonhealing left leg wound. Believes this started about 2 weeks ago. Not really sure about how it started but thinks she may have been scratched by her cat. Was seen at the urgent care and initially put on Augmentin however, due to nonhealing she represented. Following cleaning of the wound, cultures were taken. Also switched from Augmentin to metronidazole and doxycycline. She reports drainage. Has been applying bacitracin twice daily. No known history of diabetes. History of venous insufficiency status post procedure to her left lower extremity, has not been using her compression stockings. Smokes. Has not had any recent labs done. No chills, fever or otherwise feeling of unwell reported. Progress of Wound: No new concerns at this time. Improving. Objective Data Objective Data Vital Signs: Vital Signs Temp Pulse Resp BP O2 Del Method 97.5 F L 90 18 150/70 H Room Air 08/20/23 09:30 08/20/23 09:30 08/20/23 09:30 08/20/23 09:30 08/20/23 09:30 Oxygen Delivery Method Room Air Weight: 127 lb Body Mass Index (BMI) 22.4 Charges/Coding Procedures Integumentary 111xxx-113xx: 09353 Ainsley subq tissue 20 sq cm/< Physical Exam Const alert, oriented x3 and no apparent distress General Appearance: cooperative, comfortable and well kempt HEENT normocephalic, head/scalp atraumatic and hearing grossly normal bilaterally Eyes EOMs intact bilaterally Neck full ROM General: normal visual inspection Resp normal respiratory effort Extremity General Extremity: edema Skin Wounds: wounds noted Neuro oriented x3, CN's II-XII intact bilaterally, moves all extremities and no focal motor deficits Psych mental status grossly normal, thought process normal, cooperative, affect normal and speech normal Debridement Note Debridement Note Wound debrided: Left Leg Type of Debridement: Excisional debridement Anesthesia Used: 5% Lidocaine Gel Depth: Down to and including healthy tissue and in the subcutaneous layer Percentage of wound debrided: 100 Instrument Used: 5mm curette Tissue Removed: Slough and devitalized tissue Severity: Fat Layer Exposed Amount of bleeding with debridement: Mild Bleeding Controlled with: Pressure Patient tolerated procedure: Patient tolerated procedure well Post-Debridement Measurements and Additional Note: Post-Debridement Measurements/Treatment WC - Nurse 1 - General Ulcer Assessment Start: 08/13/23 09:36 Freq: Status: Active Protocol: TANESHA Activity Type Activity Date Activity User E-sign Co-sign Detail Recorded Client Recorded Date Recorded By Document 08/13/23 09:36 RB Desktop 08/13/23 09:41 RB Document 08/20/23 09:30 Desktop 08/20/23 09:39 08/13/23 08/20/23 09:36 09:30 WC - Today's Visit Information Type of service Follow-up Visit Follow-up Visit (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/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 CAR 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 (Physician/RAIL CAR REPAIRMAN ) ) Arrival Mode Ambulatory Ambulatory Transfer Assistance None None Patient Identification Verified (Name & Yes Yes ) Patient Requires Transmission-Based No No Precautions Height and Weight Body Mass Index (BMI) 22.4 22.4 BMI Classification Normal Normal Vital Signs Temperature (97.8 F-99.1 F) 97 F L 97.5 F L Temperature Source Temporal Temporal Pulse Rate (60-100) 80 90 Pulse Location Monitor Monitor Respiratory Rate (12-18) 18 18 Respiratory rate source Observation Observation Oxygen Delivery Method Room Air Blood Pressure (90/60-120/80) 126/57 H 150/70 H Blood Pressure Mean (mm Hg) 80 96 Source Monitor Monitor Position Semi-Fowlers Sitting Blood Pressure Location Left Arm Left Arm History Since Last Visit- (Skip if this is Patient's initial visit) Have you changed medications since your No No last visit? Any new allergies or adverse reactions No No Had a fall/change in ADL's that may No No increase risk of falls Signs or symptoms of abuse and/or No No neglect since last visit Have you been in the hospital since your No No last visit? Has dressing in place as prescribed Yes Yes Has compression in place as prescribed Yes Has offloadiing in place as prescribed No Experienced any changes in pain level or No management Pain Scale: 0-10 Numeric Is Patient Pain Free? Yes Yes - Nurse 1 - General Ulcer Measurement Start: 08/13/23 09:36 Freq: Status: Active Protocol: Activity Type Activity Date Activity User E-sign Co-sign Detail Recorded Client Recorded Date Recorded By Document 08/13/23 09:36 RB Desktop 08/13/23 09:41 RB Document 08/20/23 09:30 Desktop 08/20/23 09:39 08/13/23 08/20/23 09:36 09:30 Wound Center Nurse 1 #1 LT ANTERIOR LE -Combined with other wound No -Current Size (cm) - Length 1.3 1 -Current Size (cm) - Width 1.5 1.4 -Current Size (cm) - Depth 0.4 0.4 -Total Square Cm 1.95 1.4 -Photo Taken No -Epithelialization Small 1-33% -Tunneling No No -Undermining/Tunneling No No -Circular Undermining No No -Exudate Amt Medium Medium -Exudate Type Serosanguineous Yellow/Green -Wound Margin Distinct, Distinct, Outline Outline Attached Attached -Granulation Amt Medium (34-66%) Large (67-100%) -Granulation Quality [place] Red -Slough/Fibrin Yes Yes -Necrosis Amt Medium (34-66%) Small (1-33%) -Necrotic Tissue Type Adherent Slough Adherent Slough -Structure Exposed N/A -Texture (Florina-wound Skin Appearance) Assessed Assessed -Moisture (Florina-wound Skin Appearance) Assessed Assessed -Color (Florina-wound Skin Appearance) Assessed Assessed, Erythema -Temperature (Florina-wound Skin No Abnormality No Abnormality Appearance) (Pt Warm) (Pt Warm) -Tenderness on Palpation (Florina-wound No Skin Appearance) -Ulcer Cleansing Wound Cleanser Rinsed/ Irrigated with Saline -Foul Odor after Cleansing No No -Anesthetic Used 5% Lidocaine 5% Lidocaine Gel Gel Lower Limb Edema Present Yes No Left Calf (cm) 33.6 33.4 Left Ankle (cm) 23.5 24.0 WC - Nurse 2 - General Ulcer CM Notes Start: 08/13/23 09:36 Freq: Status: Active Protocol: Activity Type Activity Date Activity User E-sign Co-sign Detail Recorded Client Recorded Date Recorded By Document 08/13/23 09:52 Desktop 08/13/23 09:54 Document 08/20/23 09:44 Desktop 08/20/23 09:49 08/13/23 08/20/23 09:52 09:44 Wound Center Nurse 2 #1 LT ANTERIOR LE -Time 09:52 09:44 -Correct Patient Yes Yes -Correct Side, Site, Position Yes Yes -Correct Procedure Yes Yes -Procedure Performed Yes Yes -Type of Procedure Debridement Debridement -Clinical Debridement Subcutaneous Subcutaneous -Tissue Removed Subcutaneous Subcutaneous -Post Debridement (cm) - Length 1.5 1.2 -Post Debridement (cm) - Width 1.5 1.5 -Post Debridement (cm) - Depth 0.4 0.3 -Total Square (Post) (cm) 2.25 1.80 -Area of Debridement (cm) - Length 1.5 1.2 -Area of Debridement (cm) - Width 1.5 1.5 -Total Square (Area) (cm) 2.25 1.80 -Tunneling No No -Undermining/Tunneling No No -Circular Undermining No No -Wound/Ulcer Outcome Not Healed Not Healed -Ulcer Cleansing Rinsed/ Rinsed/ Irrigated with Irrigated with Saline Saline -Foul Odor after Cleansing No No -Bioengineered Tissue No -Bleeding Controlled with Pressure Pressure -Treatment Response Procedure Procedure Tolerated Well Tolerated Well -Offloading No -Debridement - Subq, 1st 20sq cm Yes Yes Pain Scale: 0-10 Numeric Is Patient Pain Free? Yes Yes - Nurse 3 - General Ulcer D/C NN Start: 08/13/23 09:36 Freq: Status: Active Protocol: Activity Type Activity Date Activity User E-sign Co-sign Detail Recorded Client Recorded Date Recorded By Document 08/13/23 10:16 RB Desktop 08/13/23 10:17 RB Document 08/20/23 10:01 KW Desktop 08/20/23 10:04 KW 08/13/23 08/20/23 10:16 10:01 Wound Care Center Nurse 3 #1 LT ANTERIOR LE -Ulcer Cleansing dakins gauze Rinsed/ soaked wound 5 Irrigated with min Saline -Primary Dressing Applied Promogran Promogran -Other Dressing abd -Primary Dressing Covered/Secured with Dry Gauze & Dry Gauze & Roll Gauze, Roll Gauze, Secured with Secured with Tape Tape -Promogran 1 1 Right -Stockings Yes Left -Stockings Yes Treatment Response Procedure Tolerated Well Pain Scale: 0-10 Numeric Is Patient Pain Free? Yes Yes - Visit Discharge Discharge Condition Stable Stable Ambulatory Status Ambulatory Ambulatory Transportation Private Auto Medication Reconcilliation completed & No No provided to patient/care provider Clinical Summary of Care Provided Yes Yes Notes: WEARS OWN COMPRESSION Assessment/Plan Assessment/Plan (1) Puncture wound of left leg excluding thigh: CODE(S): S81.832A - Puncture wound without foreign body, left lower leg, initial encounter QUALIFIERS: Encounter type: initial encounter Qualified Code(s): S81.832A - Puncture wound without foreign body, left lower leg, initial encounter (2) Cat bite of left lower leg: CODE(S): S81.852A - Open bite, left lower leg, initial encounter; W55.01XA - Bitten by cat, initial encounter QUALIFIERS: Encounter type: initial encounter Qualified Code(s): S81.852A - Open bite, left lower leg, initial encounter; W55.01XA - Bitten by cat, initial encounter (3) Tobacco abuse: CODE(S): Z72.0 - Tobacco use (4) History of COPD: CODE(S): Z87.09 - Personal history of other diseases of the respiratory system (5) Venous (peripheral) insufficiency: CODE(S): I87.2 - Venous insufficiency (chronic) (peripheral) PLAN: Plan Debridement done as documented above, procedure was well-tolerated. Continues to show good improvement. Continue Promogran daily, cover with ABD. Continue compression with compression socks. Leg elevation, exercise as tolerated also discussed. Continue optimal protein intake, vitamin C, D and zinc. Her questions were answered and she was advised to let us know if she has any further questions or concerns. Follow-up in a week or sooner if needed. This note was generated with [facility] [facility] dictation software. It may contain incorrect words, spelling, and punctuation that were not noted in checking the note before signing.
[2023-08-27 09:39] VITALS: BP 141/72; PULSE 89; RESP 18; TEMP 36.9; BMI 22.4
--- NOTE | 2023-08-27 12:09 | PN.PCM_ITS ---
History of Present Illness Date of Service: 08/27/23 Chief Complaint: No healing Left Leg Wound History of Wound: Ms. Noble is a 78-year-old who was referred here due to nonhealing left leg wound. Believes this started about 2 weeks ago. Not really sure about how it started but thinks she may have been scratched by her cat. Was seen at the urgent care and initially put on Augmentin however, due to nonhealing she represented. Following cleaning of the wound, cultures were taken. Also switched from Augmentin to metronidazole and doxycycline. She reports drainage. Has been applying bacitracin twice daily. No known history of diabetes. History of venous insufficiency status post procedure to her left lower extremity, has not been using her compression stockings. Smokes. Has not had any recent labs done. No chills, fever or otherwise feeling of unwell reported. Progress of Wound: No acute concerns reported at this time. Improving and she also reports less pain. Objective Data Objective Data Vital Signs: Vital Signs Temp Pulse Resp BP O2 Del Method 98.4 F 89 18 141/72 H Room Air 08/27/23 09:39 08/27/23 09:39 08/27/23 09:39 08/27/23 09:39 08/20/23 09:30 Oxygen Delivery Method Room Air Weight: 127 lb Body Mass Index (BMI) 22.4 Charges/Coding Procedures Integumentary 111xxx-113xx: 68642 Ainsley subq tissue 20 sq cm/< Physical Exam Const alert, oriented x3 and no apparent distress General Appearance: cooperative, comfortable and well kempt HEENT normocephalic, head/scalp atraumatic and hearing grossly normal bilaterally Eyes EOMs intact bilaterally Neck full ROM General: normal visual inspection Resp normal respiratory effort Extremity General Extremity: edema Skin Wounds: wounds noted Neuro oriented x3, CN's II-XII intact bilaterally, moves all extremities and no focal motor deficits Psych mental status grossly normal, thought process normal, cooperative, affect normal and speech normal Debridement Note Debridement Note Wound debrided: Left leg Type of Debridement: Excisional debridement Anesthesia Used: 5% Lidocaine Gel Depth: Down to and including healthy tissue and in the subcutaneous layer Percentage of wound debrided: 100 Instrument Used: 5mm curette Tissue Removed: Slough and devitalized tissue Severity: Fat Layer Exposed Amount of bleeding with debridement: Mild Bleeding Controlled with: Pressure Patient tolerated procedure: Patient tolerated procedure well Post-Debridement Measurements and Additional Note: Post-Debridement Measurements/Treatment - Nurse 1 - General Ulcer Assessment Start: 08/13/23 09:36 Freq: Status: Active Protocol: TANESHA Activity Type Activity Date Activity User E-sign Co-sign Detail Recorded Client Recorded Date Recorded By Document 08/13/23 09:36 RB Desktop 08/13/23 09:41 RB Document 08/20/23 09:30 GM Desktop 08/20/23 09:39 GM Document 08/27/23 09:39 RB wound center 08/27/23 09:44 RB 08/13/23 08/20/23 08/27/23 09:36 09:30 09:39 - Today's Visit Information Type of service Follow-up Visit Follow-up Visit Follow-up Visit (Physician/CAR CLEANING SUPERVISOR (Physician/CAR CLEANING SUPERVISOR (Physician/CAR CLEANING SUPERVISOR ) ) ) Arrival Mode Ambulatory Ambulatory Ambulatory Transfer Assistance None None None Patient Identification Verified (Name & Yes Yes Yes ) Patient Requires Transmission-Based No No No Precautions Height and Weight Body Mass Index (BMI) 22.4 22.4 22.4 BMI Classification Normal Normal Normal Vital Signs Temperature (97.8 F-99.1 F) 97 F L 97.5 F L 98.4 F Temperature Source Temporal Temporal Temporal Pulse Rate (60-100) 80 90 89 Pulse Location Monitor Monitor Monitor Respiratory Rate (12-18) 18 18 18 Respiratory rate source Observation Observation Observation Oxygen Delivery Method Room Air Blood Pressure (90/60-120/80) 126/57 H 150/70 H 141/72 H Blood Pressure Mean (mm Hg) 80 96 95 Source Monitor Monitor Monitor Position Semi-Fowlers Sitting Sitting Blood Pressure Location Left Arm Left Arm Left Arm History Since Last Visit- (Skip if this is Patient's initial visit) Have you changed medications since your No No No last visit? Any new allergies or adverse reactions No No No Had a fall/change in ADL's that may No No No increase risk of falls Signs or symptoms of abuse and/or No No No neglect since last visit Have you been in the hospital since your No No No last visit? Has dressing in place as prescribed Yes Yes Yes Has compression in place as prescribed Yes No Has offloadiing in place as prescribed No No Experienced any changes in pain level or No No management Pain Scale: 0-10 Numeric Is Patient Pain Free? Yes Yes Yes WC - Nurse 1 - General Ulcer Measurement Start: 08/13/23 09:36 Freq: Status: Active Protocol: Activity Type Activity Date Activity User E-sign Co-sign Detail Recorded Client Recorded Date Recorded By Document 08/13/23 09:36 RB Desktop 08/13/23 09:41 RB Document 08/20/23 09:30 GM Desktop 08/20/23 09:39 Document 08/27/23 09:39 wound center 08/27/23 09:44 RB 08/13/23 08/20/23 08/27/23 09:36 09:30 09:39 Wound Center Nurse 1 #1 LT ANTERIOR LE -Combined with other wound No No -Current Size (cm) - Length 1.3 1 1.6 -Current Size (cm) - Width 1.5 1.4 1 -Current Size (cm) - Depth 0.4 0.4 0.1 -Total Square Cm 1.95 1.4 1.6 -Photo Taken No Yes -Epithelialization Small 1-33% -Tunneling No No No -Undermining/Tunneling No No -Circular Undermining No No No -Exudate Amt Medium Medium Medium -Exudate Type Serosanguineous Yellow/Green Serosanguineous -Wound Margin Distinct, Distinct, Distinct, Outline Outline Outline Attached Attached Attached -Granulation Amt Medium (34-66%) Large (67-100%) Medium (34-66%) -Granulation Quality [place] -Slough/Fibrin Yes Yes Yes -Necrosis Amt Medium (34-66%) Small (1-33%) Medium (34-66%) -Necrotic Tissue Type Adherent Slough Adherent Slough Adherent Slough -Structure Exposed N/A N/A -Texture (Florina-wound Skin Appearance) Assessed Assessed Assessed -Moisture (Florina-wound Skin Appearance) Assessed Assessed Assessed, Maceration -Color (Florina-wound Skin Appearance) Assessed Assessed, Assessed, Erythema Erythema -Temperature (Florina-wound Skin No Abnormality No Abnormality No Abnormality Appearance) (Pt Warm) (Pt Warm) (Pt Warm) -Tenderness on Palpation (Florina-wound No No Skin Appearance) -Ulcer Cleansing Wound Cleanser Rinsed/ Wound Cleanser Irrigated with Saline -Foul Odor after Cleansing No No No -Anesthetic Used 5% Lidocaine 5% Lidocaine 5% Lidocaine Gel Gel Gel Lower Limb Edema Present Yes No Yes Left Calf (cm) 33.6 33.4 33.5 Left Ankle (cm) 23.5 24.0 23 - Nurse 2 - General Ulcer CM Notes Start: 08/13/23 09:36 Freq: Status: Active Protocol: Activity Type Activity Date Activity User E-sign Co-sign Detail Recorded Client Recorded Date Recorded By Document 08/13/23 09:52 GM Desktop 08/13/23 09:54 GM Document 08/20/23 09:44 Desktop 08/20/23 09:49 GM Document 08/27/23 09:49 [id number] 08/27/23 09:52 08/13/23 08/20/23 08/27/23 09:52 09:44 09:49 Wound Center Nurse 2 #1 LT ANTERIOR LE -Time 09:52 09:44 09:49 -Correct Patient Yes Yes Yes -Correct Side, Site, Position Yes Yes Yes -Correct Procedure Yes Yes Yes -Procedure Performed Yes Yes Yes -Type of Procedure Debridement Debridement Debridement -Clinical Debridement Subcutaneous Subcutaneous Subcutaneous -Tissue Removed Subcutaneous Subcutaneous Subcutaneous -Post Debridement (cm) - Length 1.5 1.2 0.9 -Post Debridement (cm) - Width 1.5 1.5 1.2 -Post Debridement (cm) - Depth 0.4 0.3 0.2 -Total Square (Post) (cm) 2.25 1.80 1.08 -Area of Debridement (cm) - Length 1.5 1.2 0.9 -Area of Debridement (cm) - Width 1.5 1.5 1.2 -Total Square (Area) (cm) 2.25 1.80 1.08 -Tunneling No No No -Undermining/Tunneling No No No -Circular Undermining No No No -Wound/Ulcer Outcome Not Healed Not Healed Not Healed -Ulcer Cleansing Rinsed/ Rinsed/ Rinsed/ Irrigated with Irrigated with Irrigated with Saline Saline Saline -Foul Odor after Cleansing No No No -Bioengineered Tissue No No -Bleeding Controlled with Pressure Pressure Pressure -Treatment Response Procedure Procedure Procedure Tolerated Well Tolerated Well Tolerated Well -Offloading No -Debridement - Subq, 1st 20sq cm Yes Yes Yes Pain Scale: 0-10 Numeric Is Patient Pain Free? Yes Yes Yes - Nurse 3 - General Ulcer D/C NN Start: 08/13/23 09:36 Freq: Status: Active Protocol: Activity Type Activity Date Activity User E-sign Co-sign Detail Recorded Client Recorded Date Recorded By Document 08/13/23 10:16 RB Desktop 08/13/23 10:17 RB Document 08/20/23 10:01 KW Desktop 08/20/23 10:04 KW Document 08/27/23 09:56 KW [id number] 08/27/23 09:57 KW 08/13/23 08/20/23 08/27/23 10:16 10:01 09:56 Wound Care Center Nurse 3 #1 LT ANTERIOR LE -Ulcer Cleansing dakins gauze Rinsed/ soaked wound 5 Irrigated with min Saline -Primary Dressing Applied Promogran Promogran Promogran -Other Dressing abd soaked with dakins -Primary Dressing Covered/Secured with Dry Gauze & Dry Gauze & Dry Gauze & Roll Gauze, Roll Gauze, Roll Gauze, Secured with Secured with Secured with Tape Tape Tape -Promogran 1 1 1 Right -Stockings Yes -Other own compression stocking Left -Stockings Yes -Other own compression stocking Treatment Response Procedure Tolerated Well Pain Scale: 0-10 Numeric Is Patient Pain Free? Yes Yes Yes WC - Visit Discharge Discharge Condition Stable Stable Stable Ambulatory Status Ambulatory Ambulatory Ambulatory Transportation Private Auto Private Auto Medication Reconcilliation completed & No No No provided to patient/care provider Clinical Summary of Care Provided Yes Yes Yes Notes: WEARS OWN COMPRESSION Assessment/Plan Assessment/Plan (1) Puncture wound of left leg excluding thigh: CODE(S): S81.832A - Puncture wound without foreign body, left lower leg, initial encounter QUALIFIERS: Encounter type: initial encounter Qualified Code(s): S81.832A - Puncture wound without foreign body, left lower leg, initial encounter (2) Cat bite of left lower leg: CODE(S): S81.852A - Open bite, left lower leg, initial encounter; W55.01XA - Bitten by cat, initial encounter QUALIFIERS: Encounter type: initial encounter Qualified Code(s): S81.852A - Open bite, left lower leg, initial encounter; W55.01XA - Bitten by cat, initial encounter (3) Tobacco abuse: CODE(S): Z72.0 - Tobacco use (4) History of COPD: CODE(S): Z87.09 - Personal history of other diseases of the respiratory system (5) Venous (peripheral) insufficiency: CODE(S): I87.2 - Venous insufficiency (chronic) (peripheral) PLAN: Plan Debridement done as documented above, procedure was well-tolerated. Improving. No acute concerns at this time. Continue Promogran daily, cover with ABD. Continue compression with compression socks. Leg elevation, exercise as tolerated also discussed. Continue optimal protein intake, vitamin C, D and zinc. Smoking cessation again discussed, she voiced understanding. Her q uestions were answered and she was advised to let us know if she has any further questions or concerns. Follow-up in a week or sooner if needed. This note was generated with [employer] dictation software. It may contain incorrect words, spelling, and punctuation that were not noted in checking the note before signing.
[2023-09-03 09:38] VITALS: BP 97/41; PULSE 87; RESP 18; TEMP 36.2; BMI 22.4
--- NOTE | 2023-09-03 09:56 | PCM.WC.PN ---
History of Present Illness Date of Service: 09/03/23 Chief Complaint: No healing Left Leg Wound History of Wound: Ms. Noble is a 78-year-old who was referred here due to nonhealing left leg wound. Believes this started about 2 weeks ago. Not really sure about how it started but thinks she may have been scratched by her cat. Was seen at the urgent care and initially put on Augmentin however, due to nonhealing she represented. Following cleaning of the wound, cultures were taken. Also switched from Augmentin to metronidazole and doxycycline. She reports drainage. Has been applying bacitracin twice daily. No known history of diabetes. History of venous insufficiency status post procedure to her left lower extremity, has not been using her compression stockings. Smokes. Has not had any recent labs done. No chills, fever or otherwise feeling of unwell reported. Progress of Wound: Doing well. Continues to show good improvement. No acute concerns reported at this time. She states that she is doing dressing changes as discussed. Objective Data Objective Data Vital Signs: Vital Signs Temp Pulse Resp BP O2 Del Method 97.1 F L 87 18 97/41 L Room Air 09/03/23 09:38 09/03/23 09:38 09/03/23 09:38 09/03/23 09:38 09/03/23 09:38 Oxygen Delivery Method Room Air Weight: 127 lb Body Mass Index (BMI) 22.4 Charges/Coding Procedures Integumentary 111xxx-113xx: [id number] [place] subq tissue 20 sq cm/< Physical Exam Const alert, oriented x3 and no apparent distress General Appearance: cooperative, comfortable and well kempt HEENT normocephalic, head/scalp atraumatic and hearing grossly normal bilaterally Eyes EOMs intact bilaterally Neck full ROM General: normal visual inspection Resp normal respiratory effort Extremity General Extremity: edema Skin Wounds: wounds noted Neuro oriented x3, CN's II-XII intact bilaterally, moves all extremities and no focal motor deficits Psych mental status grossly normal, thought process normal, cooperative, affect normal and speech normal Debridement Note Debridement Note Wound debrided: Left lower extremity Type of Debridement: Excisional debridement Anesthesia Used: 5% Lidocaine Gel Depth: Down to and including healthy tissue and in the subcutaneous layer Percentage of wound debrided: 100 Instrument Used: 3mm curette Tissue Removed: Slough and devitalized tissue Severity: Fat Layer Exposed Amount of bleeding with debridement: Mild Bleeding Controlled with: Pressure Patient tolerated procedure: Patient tolerated procedure well Post-Debridement Measurements and Additional Note: Post-Debridement Measurements/Treatment - Nurse 1 - General Ulcer Assessment Start: 08/13/23 09:36 Freq: Status: Active Protocol: TANESHA Activity Type Activity Date Activity User E-sign Co-sign Detail Recorded Client Recorded Date Recorded By Document 08/13/23 09:36 RB Desktop 08/13/23 09:41 RB Document 08/20/23 09:30 GM Desktop 08/20/23 09:39 GM Document 08/27/23 09:39 RB wound center 08/27/23 09:44 RB Document 09/03/23 09:38 KW wound center 09/03/23 09:43 KW 08/13/23 08/20/23 08/27/23 09:36 09:30 09:39 - Today's Visit Information Type of service Follow-up Visit Follow-up Visit Follow-up Visit (Physician/TACTICAL DECEPTION PLANS OFFICER (Physician/TACTICAL DECEPTION PLANS OFFICER (Physician/TACTICAL DECEPTION PLANS OFFICER ) ) ) Arrival Mode Ambulatory Ambulatory Ambulatory Transfer Assistance None None None Patient Identification Verified (Name & Yes Yes Yes ) Patient Requires Transmission-Based No No No Precautions Height and Weight Body Mass Index (BMI) 22.4 22.4 22.4 BMI Classification Normal Normal Normal Vital Signs Temperature (97.8 F-99.1 F) 97 F L 97.5 F L 98.4 F Temperature Source Temporal Temporal Temporal Pulse Rate (60-100) 80 90 89 Pulse Location Monitor Monitor Monitor Respiratory Rate (12-18) 18 18 18 Respiratory rate source Observation Observation Observation Oxygen Delivery Method Room Air Blood Pressure (90/60-120/80) 126/57 H 150/70 H 141/72 H Blood Pressure Mean (mm Hg) 80 96 95 Source Monitor Monitor Monitor Position Semi-Fowlers Sitting Sitting Blood Pressure Location Left Arm Left Arm Left Arm History Since Last Visit- (Skip if this is Patient's initial visit) Have you changed medications since your No No No last visit? Any new allergies or adverse reactions No No No Had a fall/change in ADL's that may No No No increase risk of falls Signs or symptoms of abuse and/or No No No neglect since last visit Have you been in the hospital since your No No No last visit? Has dressing in place as prescribed Yes Yes Yes Has compression in place as prescribed Yes No Has offloadiing in place as prescribed No No Experienced any changes in pain level or No No management Left Footwear Right Footwear Pain Scale: 0-10 Numeric Is Patient Pain Free? Yes Yes Yes 09/03/23 09:38 - Today's Visit Information Type of service Follow-up Visit (Physician/TACTICAL DECEPTION PLANS OFFICER ) Arrival Mode Ambulatory Transfer Assistance Patient Identification Verified (Name & Yes ) Patient Requires Transmission-Based Precautions Height and Weight Body Mass Index (BMI) 22.4 BMI Classification Normal Vital Signs Temperature (97.8 F-99.1 F) 97.1 F L Temperature Source Temporal Pulse Rate (60-100) 87 Pulse Location Monitor Respiratory Rate (12-18) 18 Respiratory rate source Observation Oxygen Delivery Method Room Air Blood Pressure (90/60-120/80) 97/41 L Blood Pressure Mean (mm Hg) 59 Source Monitor Position Semi-Fowlers Blood Pressure Location Left Arm History Since Last Visit- (Skip if this is Patient's initial visit) Have you changed medications since your No last visit? Any new allergies or adverse reactions No Had a fall/change in ADL's that may No increase risk of falls Signs or symptoms of abuse and/or No neglect since last visit Have you been in the hospital since your No last visit? Has dressing in place as prescribed Yes Has compression in place as prescribed Yes Has offloadiing in place as prescribed N/A Experienced any changes in pain level or No management Left Footwear Regular Shoe Right Footwear Regular Shoe Pain Scale: 0-10 Numeric Is Patient Pain Free? Yes - Nurse 1 - General Ulcer Measurement Start: 08/13/23 09:36 Freq: Status: Active Protocol: Activity Type Activity Date Activity User E-sign Co-sign Detail Recorded Client Recorded Date Recorded By Document 08/13/23 09:36 RB Desktop 08/13/23 09:41 RB Document 08/20/23 09:30 GM Desktop 08/20/23 09:39 GM Document 08/27/23 09:39 RB wound center 08/27/23 09:44 RB Document 09/03/23 09:38 KW wound center 09/03/23 09:43 KW 08/13/23 08/20/23 08/27/23 09:36 09:30 09:39 Wound Center Nurse 1 #1 LT ANTERIOR LE -Combined with other wound No No -Current Size (cm) - Length 1.3 1 1.6 -Current Size (cm) - Width 1.5 1.4 1 -Current Size (cm) - Depth 0.4 0.4 0.1 -Total Square Cm 1.95 1.4 1.6 -Date of Last Picture (Recall this field) -Photo Taken No Yes -Epithelialization Small 1-33% -Tunneling No No No -Undermining/Tunneling No No -Circular Undermining No No No -Exudate Amt Medium Medium Medium -Exudate Type Serosanguineous Yellow/Green Serosanguineous -Wound Margin Distinct, Distinct, Distinct, Outline Outline Outline Attached Attached Attached -Granulation Amt Medium (34-66%) Large (67-100%) Medium (34-66%) -Granulation Quality [place] Red [place] -Slough/Fibrin Yes Yes Yes -Necrosis Amt Medium (34-66%) Small (1-33%) Medium (34-66%) -Necrotic Tissue Type Adherent Slough Adherent Slough Adherent Slough -Structure Exposed N/A N/A -Texture (Florina-wound Skin Appearance) Assessed Assessed Assessed -Moisture (Florina-wound Skin Appearance) Assessed Assessed Assessed, Maceration -Color (Florina-wound Skin Appearance) Assessed Assessed, Assessed, Erythema Erythema -Temperature (Florina-wound Skin No Abnormality No Abnormality No Abnormality Appearance) (Pt Warm) (Pt Warm) (Pt Warm) -Tenderness on Palpation (Florina-wound No No Skin Appearance) -Ulcer Cleansing Wound Cleanser Rinsed/ Wound Cleanser Irrigated with Saline -Foul Odor after Cleansing No No No -Anesthetic Used 5% Lidocaine 5% Lidocaine 5% Lidocaine Gel Gel Gel Lower Limb Edema Present Yes No Yes Left Calf (cm) 33.6 33.4 33.5 Left Ankle (cm) 23.5 24.0 09/03/23 09:38 Wound Center Nurse 1 #1 LT ANTERIOR LE -Combined with other wound -Current Size (cm) - Length 0.6 -Current Size (cm) - Width 0.6 -Current Size (cm) - Depth 0.1 -Total Square Cm 0.36 -Date of Last Picture (Recall this 09/03/23 field) -Photo Taken -Epithelialization -Tunneling -Undermining/Tunneling -Circular Undermining -Exudate Amt Small -Exudate Type Serous -Wound Margin Distinct, Outline Attached -Granulation Amt Large (67-100%) -Granulation Quality Red -Slough/Fibrin -Necrosis Amt -Necrotic Tissue Type -Structure Exposed -Texture (Florina-wound Skin Appearance) Assessed -Moisture (Florina-wound Skin Appearance) Assessed, Maceration -Color (Florina-wound Skin Appearance) Assessed, Erythema -Temperature (Florina-wound Skin No Abnormality Appearance) (Pt Warm) -Tenderness on Palpation (Florina-wound No Skin Appearance) -Ulcer Cleansing Rinsed/ Irrigated with Saline -Foul Odor after Cleansing No -Anesthetic Used 5% Lidocaine Gel Lower Limb Edema Present Left Calf (cm) Left Ankle (cm) WC - Nurse 2 - General Ulcer CM Notes Start: 08/13/23 09:36 Freq: Status: Active Protocol: Activity Type Activity Date Activity User E-sign Co-sign Detail Recorded Client Recorded Date Recorded By Document 08/13/23 09:52 Desktop 08/13/23 09:54 Document 08/20/23 09:44 Desktop 08/20/23 09:49 Document 08/27/23 09:49 [id number] 08/27/23 09:52 Document 09/03/23 09:53 wound center 09/03/23 09:54 08/13/23 08/20/23 08/27/23 09:52 09:44 09:49 Wound Center Nurse 2 #1 LT ANTERIOR LE -Time 09:52 09:44 09:49 -Correct Patient Yes Yes Yes -Correct Side, Site, Position Yes Yes Yes -Correct Procedure Yes Yes Yes -Procedure Performed Yes Yes Yes -Type of Procedure Debridement Debridement Debridement -Clinical Debridement Subcutaneous Subcutaneous Subcutaneous -Tissue Removed Subcutaneous Subcutaneous Subcutaneous -Post Debridement (cm) - Length 1.5 1.2 0.9 -Post Debridement (cm) - Width 1.5 1.5 1.2 -Post Debridement (cm) - Depth 0.4 0.3 0.2 -Total Square (Post) (cm) 2.25 1.80 1.08 -Area of Debridement (cm) - Length 1.5 1.2 0.9 -Area of Debridement (cm) - Width 1.5 1.5 1.2 -Total Square (Area) (cm) 2.25 1.80 1.08 -Tunneling No No No -Undermining/Tunneling No No No -Circular Undermining No No No -Wound/Ulcer Outcome Not Healed Not Healed Not Healed -Ulcer Cleansing Rinsed/ Rinsed/ Rinsed/ Irrigated with Irrigated with Irrigated with Saline Saline Saline -Foul Odor after Cleansing No No No -Bioengineered Tissue No No -Bleeding Controlled with Pressure Pressure Pressure -Treatment Response Procedure Procedure Procedure Tolerated Well Tolerated Well Tolerated Well -Offloading No -Debridement - Subq, 1st 20sq cm Yes Yes Yes Pain Scale: 0-10 Numeric Is Patient Pain Free? Yes Yes Yes 09/03/23 09:53 Wound Center Nurse 2 #1 LT ANTERIOR LE -Time 09:53 -Correct Patient Yes -Correct Side, Site, Position Yes -Correct Procedure Yes -Procedure Performed Yes -Type of Procedure Debridement -Clinical Debridement Subcutaneous -Tissue Removed Subcutaneous -Post Debridement (cm) - Length 0.8 -Post Debridement (cm) - Width 0.8 -Post Debridement (cm) - Depth 0.2 -Total Square (Post) (cm) 0.64 -Area of Debridement (cm) - Length 0.8 -Area of Debridement (cm) - Width 0.8 -Total Square (Area) (cm) 0.64 -Tunneling No -Undermining/Tunneling No -Circular Undermining No -Wound/Ulcer Outcome Not Healed -Ulcer Cleansing Rinsed/ Irrigated with Saline -Foul Odor after Cleansing No -Bioengineered Tissue No -Bleeding Controlled with Pressure -Treatment Response Procedure Tolerated Well -Offloading -Debridement - Subq, 1st 20sq cm Yes Pain Scale: 0-10 Numeric Is Patient Pain Free? Yes - Nurse 3 - General Ulcer D/C NN Start: 08/13/23 09:36 Freq: Status: Active Protocol: Activity Type Activity Date Activity User E-sign Co-sign Detail Recorded Client Recorded Date Recorded By Document 08/13/23 10:16 RB Desktop 08/13/23 10:17 RB Document 08/20/23 10:01 KW Desktop 08/20/23 10:04 KW Document 08/27/23 09:56 KW [id number] 08/27/23 09:57 KW 08/13/23 08/20/23 08/27/23 10:16 10:01 09:56 Wound Care Center Nurse 3 #1 LT ANTERIOR LE -Ulcer Cleansing dakins gauze Rinsed/ soaked wound 5 Irrigated with min Saline -Primary Dressing Applied Promogran Promogran Promogran -Other Dressing abd soaked with dakins -Primary Dressing Covered/Secured with Dry Gauze & Dry Gauze & Dry Gauze & Roll Gauze, Roll Gauze, Roll Gauze, Secured with Secured with Secured with Tape Tape Tape -Promogran 1 1 1 Right -Stockings Yes -Other own compression stocking Left -Stockings Yes -Other own compression stocking Treatment Response Procedure Tolerated Well Pain Scale: 0-10 Numeric Is Patient Pain Free? Yes Yes Yes WC - Visit Discharge Discharge Condition Stable Stable Stable Ambulatory Status Ambulatory Ambulatory Ambulatory Transportation Private Auto Private Auto Medication Reconcilliation completed & No No No provided to patient/care provider Clinical Summary of Care Provided Yes Yes Yes Notes: WEARS OWN COMPRESSION Assessment/Plan Assessment/Plan (1) Puncture wound of left leg excluding thigh: CODE(S): S81.832A - Puncture wound without foreign body, left lower leg, initial encounter QUALIFIERS: Encounter type: initial encounter Qualified Code(s): S81.832A - Puncture wound without foreign body, left lower leg, initial encounter (2) Cat bite of left lower leg: CODE(S): S81.852A - Open bite, left lower leg, initial encounter; W55.01XA - Bitten by cat, initial encounter QUALIFIERS: Encounter type: initial encounter Qualified Code(s): S81.852A - Open bite, left lower leg, initial encounter; W55.01XA - Bitten by cat, initial encounter (3) Tobacco abuse: CODE(S): Z72.0 - Tobacco use (4) History of COPD: CODE(S): Z87.09 - Personal history of other diseases of the respiratory system (5) Venous (peripheral) insufficiency: CODE(S): I87.2 - Venous insufficiency (chronic) (peripheral) PLAN: Plan Debridement done as documented above, procedure was well-tolerated. Continues to show good improvement. Good granulation and reduction in circumference. Continue daily 10 minutes Dakins soak, Promogran and ABD. Continue optimal protein intake, compression, leg elevation and exercise as tolerated. Recommend smoking cessation. Her questions were answered and she was advised to let us know if she has any further questions or concerns. Follow-up in a week or sooner if needed. This note was generated with [employer] software. It may contain incorrect words, spelling, and punctuation that were not noted in checking the note before signing.
[2023-09-10 09:30] VITALS: BP 129/62; PULSE 81; RESP 18; TEMP 37.2; BMI 22.4
--- NOTE | 2023-09-10 09:58 | PN.PCM_ITS ---
History of Present Illness Date of Service: 09/10/23 Chief Complaint: No healing Left Leg Wound History of Wound: Ms. Noble is a 78-year-old who was referred here due to nonhealing left leg wound. Believes this started about 2 weeks ago. Not really sure about how it started but thinks she may have been scratched by her cat. Was seen at the urgent care and initially put on Augmentin however, due to nonhealing she represented. Following cleaning of the wound, cultures were taken. Also switched from Augmentin to metronidazole and doxycycline. She reports drainage. Has been applying bacitracin twice daily. No known history of diabetes. History of venous insufficiency status post procedure to her left lower extremity, has not been using her compression stockings. Smokes. Has not had any recent labs done. No chills, fever or otherwise feeling of unwell reported. Progress of Wound: Doing well. Continues to show good improvement. No acute concerns reported at this time. Objective Data Objective Data Vital Signs: Vital Signs Temp Pulse Resp BP O2 Del Method 98.9 F 81 18 129/62 H Room Air 09/10/23 09:30 09/10/23 09:30 09/10/23 09:30 09/10/23 09:30 09/10/23 09:30 Oxygen Delivery Method Room Air Weight: 127 lb Body Mass Index (BMI) 22.4 Charges/Coding Procedures Integumentary 111xxx-113xx: [id number] [place] subq tissue 20 sq cm/< Physical Exam Const alert, oriented x3 and no apparent distress General Appearance: cooperative, comfortable and well kempt HEENT normocephalic, head/scalp atraumatic and hearing grossly normal bilaterally Eyes EOMs intact bilaterally Neck full ROM General: normal visual inspection Resp normal respiratory effort Extremity General Extremity: edema Skin Wounds: wounds noted bed granulating well, no odor and open Neuro oriented x3, CN's II-XII intact bilaterally, moves all extremities and no focal motor deficits Psych mental status grossly normal, thought process normal, cooperative, affect normal and speech normal Debridement Note Debridement Note Wound debrided: Left Type of Debridement: Excisional debridement Anesthesia Used: 5% Lidocaine Gel Depth: Down to and including healthy tissue and in the subcutaneous layer Percentage of wound debrided: 100 Instrument Used: 3mm curette Tissue Removed: Slough and devitalized tissue Severity: Fat Layer Exposed Amount of bleeding with debridement: Mild Bleeding Controlled with: Pressure Patient tolerated procedure: Patient tolerated procedure well Post-Debridement Measurements and Additional Note: Post-Debridement Measurements/Treatment WC - Nurse 1 - General Ulcer Assessment Start: 08/13/23 09:36 Freq: Status: Active Protocol: TANESHA Activity Type Activity Date Activity User E-sign Co-sign Detail Recorded Client Recorded Date Recorded By Document 08/13/23 09:36 RB Desktop 08/13/23 09:41 RB Document 08/20/23 09:30 GM Desktop 08/20/23 09:39 GM Document 08/27/23 09:39 RB wound center 08/27/23 09:44 RB Document 09/03/23 09:38 KW wound center 09/03/23 09:43 KW Document 09/10/23 09:30 KW wound center 09/10/23 09:34 KW 08/13/23 08/20/23 08/27/23 09:36 09:30 09:39 - Today's Visit Information Type of service Follow-up Visit Follow-up Visit Follow-up Visit (Physician/COUPON AND BOND COLLECTION CLERK (Physician/COUPON AND BOND COLLECTION CLERK (Physician/COUPON AND BOND COLLECTION CLERK ) ) ) Arrival Mode Ambulatory Ambulatory Ambulatory Transfer Assistance None None None Patient Identification Verified (Name & Yes Yes Yes ) Patient Requires Transmission-Based No No No Precautions Height and Weight Body Mass Index (BMI) 22.4 22.4 22.4 BMI Classification Normal Normal Normal Vital Signs Temperature (97.8 F-99.1 F) 97 F L 97.5 F L 98.4 F Temperature Source Temporal Temporal Temporal Pulse Rate (60-100) 80 90 89 Pulse Location Monitor Monitor Monitor Respiratory Rate (12-18) 18 18 18 Respiratory rate source Observation Observation Observation Oxygen Delivery Method Room Air Blood Pressure (90/60-120/80) 126/57 H 150/70 H 141/72 H Blood Pressure Mean (mm Hg) 80 96 95 Source Monitor Monitor Monitor Position Semi-Fowlers Sitting Sitting Blood Pressure Location Left Arm Left Arm Left Arm History Since Last Visit- (Skip if this is Patient's initial visit) Have you changed medications since your No No No last visit? Any new allergies or adverse reactions No No No Had a fall/change in ADL's that may No No No increase risk of falls Signs or symptoms of abuse and/or No No No neglect since last visit Have you been in the hospital since your No No No last visit? Has dressing in place as prescribed Yes Yes Yes Has compression in place as prescribed Yes No Has offloadiing in place as prescribed No No Experienced any changes in pain level or No No management Left Footwear Right Footwear Pain Scale: 0-10 Numeric Is Patient Pain Free? Yes Yes Yes 09/03/23 09/10/23 09:38 09:30 - Today's Visit Information Type of service Follow-up Visit Follow-up Visit (Physician/COUPON AND BOND COLLECTION CLERK (Physician/COUPON AND BOND COLLECTION CLERK ) ) Arrival Mode Ambulatory Ambulatory Transfer Assistance Patient Identification Verified (Name & Yes Yes ) Patient Requires Transmission-Based Precautions Height and Weight Body Mass Index (BMI) 22.4 22.4 BMI Classification Normal Normal Vital Signs Temperature (97.8 F-99.1 F) 97.1 F L 98.9 F Temperature Source Temporal Temporal Pulse Rate (60-100) 87 81 Pulse Location Monitor Monitor Respiratory Rate (12-18) 18 18 Respiratory rate source Observation Observation Oxygen Delivery Method Room Air Room Air Blood Pressure (90/60-120/80) 97/41 L 129/62 H Blood Pressure Mean (mm Hg) 59 84 Source Monitor Monitor Position Semi-Fowlers Semi-Fowlers Blood Pressure Location Left Arm Left Arm History Since Last Visit- (Skip if this is Patient's initial visit) Have you changed medications since your No No last visit? Any new allergies or adverse reactions No No Had a fall/change in ADL's that may No No increase risk of falls Signs or symptoms of abuse and/or No No neglect since last visit Have you been in the hospital since your No No last visit? Has dressing in place as prescribed Yes Yes Has compression in place as prescribed Yes Yes Has offloadiing in place as prescribed N/A N/A Experienced any changes in pain level or No No management Left Footwear Regular Shoe Regular Shoe Right Footwear Regular Shoe Regular Shoe Pain Scale: 0-10 Numeric Is Patient Pain Free? Yes Yes - Nurse 1 - General Ulcer Measurement Start: 08/13/23 09:36 Freq: Status: Active Protocol: Activity Type Activity Date Activity User E-sign Co-sign Detail Recorded Client Recorded Date Recorded By Document 08/13/23 09:36 RB Desktop 08/13/23 09:41 RB Document 08/20/23 09:30 GM Desktop 08/20/23 09:39 GM Document 08/27/23 09:39 RB wound center 08/27/23 09:44 RB Document 09/03/23 09:38 KW wound center 09/03/23 09:43 KW Document 09/10/23 09:30 KW wound center 09/10/23 09:34 KW 08/13/23 08/20/23 08/27/23 09:36 09:30 09:39 Wound Center Nurse 1 #1 LT ANTERIOR LE -Combined with other wound No No -Current Size (cm) - Length 1.3 1 1.6 -Current Size (cm) - Width 1.5 1.4 1 -Current Size (cm) - Depth 0.4 0.4 0.1 -Total Square Cm 1.95 1.4 1.6 -Date of Last Picture (Recall this field) -Photo Taken No Yes -Epithelialization Small 1-33% -Tunneling No No No -Undermining/Tunneling No No -Circular Undermining No No No -Exudate Amt Medium Medium Medium -Exudate Type Serosanguineous Yellow/Green Serosanguineous -Wound Margin Distinct, Distinct, Distinct, Outline Outline Outline Attached Attached Attached -Granulation Amt Medium (34-66%) Large (67-100%) Medium (34-66%) -Granulation Quality [place] Red [place] -Slough/Fibrin Yes Yes Yes -Necrosis Amt Medium (34-66%) Small (1-33%) Medium (34-66%) -Necrotic Tissue Type Adherent Slough Adherent Slough Adherent Slough -Structure Exposed N/A N/A -Texture (Florina-wound Skin Appearance) Assessed Assessed Assessed -Moisture (Florina-wound Skin Appearance) Assessed Assessed Assessed, Maceration -Color (Florina-wound Skin Appearance) Assessed Assessed, Assessed, Erythema Erythema -Temperature (Florina-wound Skin No Abnormality No Abnormality No Abnormality Appearance) (Pt Warm) (Pt Warm) (Pt Warm) -Tenderness on Palpation (Florina-wound No No Skin Appearance) -Ulcer Cleansing Wound Cleanser Rinsed/ Wound Cleanser Irrigated with Saline -Foul Odor after Cleansing No No No -Anesthetic Used 5% Lidocaine 5% Lidocaine 5% Lidocaine Gel Gel Gel Lower Limb Edema Present Yes No Yes Left Calf (cm) 33.6 33.4 33.5 Left Ankle (cm) 23.5 24.0 23 05/23/24 05/30/24 09:38 09:30 Wound Center Nurse 1 #1 LT ANTERIOR LE -Combined with other wound -Current Size (cm) - Length 0.6 0.3 -Current Size (cm) - Width 0.6 0.5 -Current Size (cm) - Depth 0.1 0.1 -Total Square Cm 0.36 0.15 -Date of Last Picture (Recall this 09/03/23 field) -Photo Taken -Epithelialization Large 67-100% -Tunneling -Undermining/Tunneling -Circular Undermining -Exudate Amt Small Small -Exudate Type Serous Serosanguineous -Wound Margin Distinct, Distinct, Outline Outline Attached Attached -Granulation Amt Large (67-100%) Large (67-100%) -Granulation Quality Red Red -Slough/Fibrin -Necrosis Amt -Necrotic Tissue Type -Structure Exposed -Texture (Florina-wound Skin Appearance) Assessed Assessed -Moisture (Florina-wound Skin Appearance) Assessed, Assessed Maceration -Color (Florina-wound Skin Appearance) Assessed, Assessed Erythema -Temperature (Florina-wound Skin No Abnormality No Abnormality Appearance) (Pt Warm) (Pt Warm) -Tenderness on Palpation (Florina-wound No Skin Appearance) -Ulcer Cleansing Rinsed/ Rinsed/ Irrigated with Irrigated with Saline Saline -Foul Odor after Cleansing No No -Anesthetic Used 5% Lidocaine 5% Lidocaine Gel Gel Lower Limb Edema Present Left Calf (cm) Left Ankle (cm) WC - Nurse 2 - General Ulcer CM Notes Start: 08/13/23 09:36 Freq: Status: Active Protocol: Activity Type Activity Date Activity User E-sign Co-sign Detail Recorded Client Recorded Date Recorded By Document 08/13/23 09:52 Desktop 08/13/23 09:54 Document 08/20/23 09:44 Desktop 08/20/23 09:49 Document 08/27/23 09:49 [id number] 08/27/23 09:52 Document 09/03/23 09:53 wound center 09/03/23 09:54 Document 09/10/23 09:44 [facility] 09/10/23 09:48 08/13/23 08/20/23 08/27/23 09:52 09:44 09:49 Wound Center Nurse 2 #1 LT ANTERIOR LE -Time 09:52 09:44 09:49 -Correct Patient Yes Yes Yes -Correct Side, Site, Position Yes Yes Yes -Correct Procedure Yes Yes Yes -Procedure Performed Yes Yes Yes -Type of Procedure Debridement Debridement Debridement -Clinical Debridement Subcutaneous Subcutaneous Subcutaneous -Tissue Removed Subcutaneous Subcutaneous Subcutaneous -Post Debridement (cm) - Length 1.5 1.2 0.9 -Post Debridement (cm) - Width 1.5 1.5 1.2 -Post Debridement (cm) - Depth 0.4 0.3 0.2 -Total Square (Post) (cm) 2.25 1.80 1.08 -Area of Debridement (cm) - Length 1.5 1.2 0.9 -Area of Debridement (cm) - Width 1.5 1.5 1.2 -Total Square (Area) (cm) 2.25 1.80 1.08 -Tunneling No No No -Undermining/Tunneling No No No -Circular Undermining No No No -Wound/Ulcer Outcome Not Healed Not Healed Not Healed -Ulcer Cleansing Rinsed/ Rinsed/ Rinsed/ Irrigated with Irrigated with Irrigated with Saline Saline Saline -Foul Odor after Cleansing No No No -Bioengineered Tissue No No -Bleeding Controlled with Pressure Pressure Pressure -Treatment Response Procedure Procedure Procedure Tolerated Well Tolerated Well Tolerated Well -Offloading No -Debridement - Subq, 1st 20sq cm Yes Yes Yes Pain Scale: 0-10 Numeric Is Patient Pain Free? Yes Yes Yes 09/03/23 09/10/23 09:53 09:44 Wound Center Nurse 2 #1 ANTERIOR LE -Time 09:53 09:44 -Correct Patient Yes Yes -Correct Side, Site, Position Yes Yes -Correct Procedure Yes Yes -Procedure Performed Yes Yes -Type of Procedure Debridement Debridement -Clinical Debridement Subcutaneous Subcutaneous -Tissue Removed Subcutaneous Subcutaneous -Post Debridement (cm) - Length 0.8 0.5 -Post Debridement (cm) - Width 0.8 0.8 -Post Debridement (cm) - Depth 0.2 0.2 -Total Square (Post) (cm) 0.64 0.40 -Area of Debridement (cm) - Length 0.8 0.5 -Area of Debridement (cm) - Width 0.8 0.8 -Total Square (Area) (cm) 0.64 0.40 -Tunneling No No -Undermining/Tunneling No No -Circular Undermining No No -Wound/Ulcer Outcome Not Healed Not Healed -Ulcer Cleansing Rinsed/ Rinsed/ Irrigated with Irrigated with Saline Saline -Foul Odor after Cleansing No No -Bioengineered Tissue No No -Bleeding Controlled with Pressure Pressure -Treatment Response Procedure Procedure Tolerated Well Tolerated Well -Offloading -Debridement - Subq, 1st 20sq cm Yes Yes Pain Scale: 0-10 Numeric Is Patient Pain Free? Yes Yes - Nurse 3 - General Ulcer D/C NN Start: 08/13/23 09:36 Freq: Status: Active Protocol: Activity Type Activity Date Activity User E-sign Co-sign Detail Recorded Client Recorded Date Recorded By Document 08/13/23 10:16 RB Desktop 08/13/23 10:17 RB Document 08/20/23 10:01 KW Desktop 08/20/23 10:04 KW Document 08/27/23 09:56 KW [id number] 08/27/23 09:57 KW Document 09/03/23 10:01 wound center 09/03/23 10:02 Document 09/10/23 09:54 [facility] 09/10/23 09:57 08/13/23 08/20/23 08/27/23 10:16 10:01 09:56 Wound Care Center Nurse 3 #1 LT ANTERIOR LE -Ulcer Cleansing dakins gauze Rinsed/ soaked wound 5 Irrigated with min Saline -Foul Odor after Cleansing -Primary Dressing Applied Promogran Promogran Promogran -Other Dressing abd soaked with dakins -Primary Dressing Covered/Secured with Dry Gauze & Dry Gauze & Dry Gauze & Roll Gauze, Roll Gauze, Roll Gauze, Secured with Secured with Secured with Tape Tape Tape -Mepilex Border -Promogran 1 1 1 -Wound Comment(s) Right -Stockings Yes -Other own compression stocking Left -Stockings Yes -Other own compression stocking Treatment Response Procedure Tolerated Well Pain Scale: 0-10 Numeric Is Patient Pain Free? Yes Yes Yes - Visit Discharge Discharge Condition Stable Stable Stable Ambulatory Status Ambulatory Ambulatory Ambulatory Transportation Private Auto Private Auto Medication Reconcilliation completed & No No No provided to patient/care provider Clinical Summary of Care Provided Yes Yes Yes Notes: WEARS OWN COMPRESSION 09/03/23 09/10/23 10:01 09:54 Wound Care Center Nurse 3 #1 LT ANTERIOR LE -Ulcer Cleansing dakins soak dakins -Foul Odor after Cleansing No No -Primary Dressing Applied Mepilex Border, Promogran Promogran -Other Dressing -Primary Dressing Covered/Secured with Dry Gauze,Dry Gauze & Roll Gauze,Secured with Tape -Mepilex Border 1 -Promogran 1 1 -Wound Comment(s) covered with an abd, put her compression stockings back on, hers from home Right -Stockings -Other Left -Stockings -Other Treatment Response Pain Scale: 0-10 Numeric Is Patient Pain Free? Yes Yes WC - Visit Discharge Discharge Condition Stable Stable Ambulatory Status Ambulatory Ambulatory Transportation Private Auto Private Auto Medication Reconcilliation completed & provided to patient/care provider Clinical Summary of Care Provided Yes Yes Notes: Assessment/Plan Assessment/Plan (1) Puncture wound of left leg excluding thigh: CODE(S): S81.832A - Puncture wound without foreign body, left lower leg, initial encounter QUALIFIERS: Encounter type: initial encounter Qualified Code(s): S81.832A - Puncture wound without foreign body, left lower leg, initial encounter (2) Cat bite of left lower leg: CODE(S): S81.852A - Open bite, left lower leg, initial encounter; W55.01XA - Bitten by cat, initial encounter QUALIFIERS: Encounter type: initial encounter Qualified Code(s): S81.852A - Open bite, left lower leg, initial encounter; W55.01XA - Bitten by cat, initial encounter (3) Tobacco abuse: CODE(S): Z72.0 - Tobacco use (4) History of COPD: CODE(S): Z87.09 - Personal history of other diseases of the respiratory system (5) Venous (peripheral) insufficiency: CODE(S): I87.2 - Venous insufficiency (chronic) (peripheral) PLAN: Plan Debridement done as documented above, procedure was well-tolerated. No acute concerns at this time. Slow but consistent improvement. Good granulation and reduction in circumference. Continue daily 10 minutes Dakins soak, Promogran and ABD. Continue optimal protein intake, compression, leg elevation and exercise as tolerated. Recommend smoking cessation. Her questions were answered and she was advised to let us know if she has any further questions or concerns. Follow-up in a week or sooner if needed. This note was generated with [employer]Udeal[employer] software. It may contain incorrect words, spelling, and punctuation that were not noted in checking the note before signing.
== END 2023-09-11 23:59 | disposition home or self-care (01) ==
LOC: WC 09:30
PROVIDERS: PCP Family Medicine; Referring Provider Physician Assistant; Visit Provider Internal Medicine
DX: S81.832A Puncture wound without foreign body, left lower leg, initial encounter (principal); F17.200 Nicotine dependence, unspecified, uncomplicated; S81.852A Open bite, left lower leg, initial encounter; Z87.09 Personal history of other diseases of the respiratory system; I87.2 Venous insufficiency (chronic) (peripheral); W55.01XA Bitten by cat, initial encounter
CPT/HCPCS: 11042

== ENCOUNTER 2023-09-18 10:04 | Outpatient (CLI) | payer MEDICARE, SELFPAY ==
[2023-09-18 10:11] VITALS: BP 122/84; PULSE 87; RESP 16; TEMP 36; O2SAT 98
[2023-09-18] MEDS: Zoledronic Acid 5 MG 100 ML 300 MG IV (10:21)
[2023-09-18] MEDS: 0.9% NaCl Peripheral Flush Adult/Peds IV (10:24)
== END 2023-09-18 23:59 | disposition home or self-care (01) ==
LOC: MEDOUTP 10:04
PROVIDERS: PCP Family Medicine; Referring Provider Family Medicine; Visit Provider Family Medicine
DX: M81.0 Age-related osteoporosis without current pathological fracture (principal)
CPT/HCPCS: 96365; A4216; J3489

== ENCOUNTER 2023-09-24 09:30 | Outpatient (RCR) | payer MEDICARE, SELFPAY ==
[2023-09-12 01:16] VITALS: BP 136/69; PULSE 94; RESP 18; TEMP 36.8; BMI 22.4
[2023-09-17 09:46] VITALS: BP 102/60; PULSE 100; RESP 18; TEMP 36.9; BMI 22.4
--- NOTE | 2023-09-17 11:27 | PCM.WC.PN ---
History of Present Illness Date of Service: 09/17/23 Chief Complaint: No healing Left Leg Wound History of Wound: Ms. Noble is a 78-year-old who was referred here due to nonhealing left leg wound. Believes this started about 2 weeks ago. Not really sure about how it started but thinks she may have been scratched by her cat. Was seen at the urgent care and initially put on Augmentin however, due to nonhealing she represented. Following cleaning of the wound, cultures were taken. Also switched from Augmentin to metronidazole and doxycycline. She reports drainage. Has been applying bacitracin twice daily. No known history of diabetes. History of venous insufficiency status post procedure to her left lower extremity, has not been using her compression stockings. Smokes. Has not had any recent labs done. No chills, fever or otherwise feeling of unwell reported. Progress of Wound: Improving. No new concerns reported at this time. Objective Data Objective Data Vital Signs: Vital Signs Temp Pulse Resp BP O2 Del Method 98.5 F 100 18 102/60 Room Air 09/17/23 09:46 09/17/23 09:46 09/17/23 09:46 09/17/23 09:46 09/17/23 09:46 Oxygen Delivery Method Room Air Weight: 127 lb Body Mass Index (BMI) 22.4 Charges/Coding Procedures Integumentary 111xxx-113xx: [id number] [place] subq tissue 20 sq cm/< Physical Exam Const alert, oriented x3 and no apparent distress General Appearance: cooperative, comfortable and well kempt HEENT normocephalic, head/scalp atraumatic and hearing grossly normal bilaterally Eyes EOMs intact bilaterally Neck full ROM General: normal visual inspection Resp normal respiratory effort Extremity General Extremity: edema Skin Wounds: wounds noted bed granulating well, no odor and open Neuro oriented x3, CN's II-XII intact bilaterally, moves all extremities and no focal motor deficits Psych mental status grossly normal, thought process normal, cooperative, affect normal and speech normal Debridement Note Debridement Note Wound debrided: Left lower extremity Type of Debridement: Excisional debridement Anesthesia Used: 5% Lidocaine Gel Depth: Down to and including healthy tissue and in the subcutaneous layer Percentage of wound debrided: 100 Instrument Used: 3mm curette Tissue Removed: Slough and devitalized tissue Severity: Fat Layer Exposed Amount of bleeding with debridement: Mild Bleeding Controlled with: Pressure Patient tolerated procedure: Patient tolerated procedure well Post-Debridement Measurements and Additional Note: Post-Debridement Measurements/Treatment - Nurse 1 - General Ulcer Assessment Start: 09/17/23 09:45 Freq: Status: Active Protocol: TANESHA Activity Type Activity Date Activity User E-sign Co-sign Detail Recorded Client Recorded Date Recorded By Document 09/17/23 09:46 wound center 09/17/23 09:50 09/17/23 09:46 WC - Today's Visit Information Type of service Follow-up Visit (Physician/WATER USE INSPECTOR ) Arrival Mode Ambulatory Patient Identification Verified (Name & Yes ) Height and Weight Body Mass Index (BMI) 22.4 BMI Classification Normal Vital Signs Temperature (97.8 F-99.1 F) 98.5 F Temperature Source Temporal Pulse Rate (60-100) 100 Pulse Location Monitor Respiratory Rate (12-18) 18 Respiratory rate source Observation Oxygen Delivery Method Room Air Blood Pressure (90/60-120/80) 102/60 Blood Pressure Mean (mm Hg) 74 Source Monitor Position Semi-Fowlers Blood Pressure Location Left Arm History Since Last Visit- (Skip if this is Patient's initial visit) Have you changed medications since your No last visit? Any new allergies or adverse reactions No Had a fall/change in ADL's that may No increase risk of falls Signs or symptoms of abuse and/or No neglect since last visit Have you been in the hospital since your No last visit? Has dressing in place as prescribed Yes Has compression in place as prescribed Yes Has offloadiing in place as prescribed N/A Experienced any changes in pain level or No management Left Footwear Regular Shoe Right Footwear Regular Shoe Pain Scale: 0-10 Numeric Is Patient Pain Free? Yes - Nurse 1 - General Ulcer Measurement Start: 09/17/23 09:45 Freq: Status: Active Protocol: Activity Type Activity Date Activity User E-sign Co-sign Detail Recorded Client Recorded Date Recorded By Document 09/17/23 09:46 wound center 09/17/23 09:50 09/17/23 09:46 Wound Center Nurse 1 #1 LT ANTERIOR LE -Current Size (cm) - Length 0.4 -Current Size (cm) - Width 0.4 -Current Size (cm) - Depth 0.1 -Total Square Cm 0.16 -Exudate Amt Small -Exudate Type Serosanguineous -Wound Margin Distinct, Outline Attached -Granulation Amt Large (67-100%) -Granulation Quality Red -Necrosis Amt Small (1-33%) -Necrotic Tissue Type Adherent Slough -Texture (Florina-wound Skin Appearance) Assessed -Moisture (Florina-wound Skin Appearance) Assessed -Color (Florina-wound Skin Appearance) Assessed -Temperature (Florina-wound Skin No Abnormality Appearance) (Pt Warm) -Tenderness on Palpation (Florina-wound No Skin Appearance) -Ulcer Cleansing Rinsed/ Irrigated with Saline -Foul Odor after Cleansing No -Anesthetic Used 5% Lidocaine Gel - Nurse 2 - General Ulcer CM Notes Start: 09/17/23 09:45 Freq: Status: Active Protocol: Activity Type Activity Date Activity User E-sign Co-sign Detail Recorded Client Recorded Date Recorded By Document 09/17/23 09:57 [facility] 09/17/23 09:58 09/17/23 09:57 Wound Center Nurse 2 -Time 09:57 -Correct Patient Yes -Correct Side, Site, Position Yes -Correct Procedure Yes -Procedure Performed Yes -Type of Procedure Debridement -Clinical Debridement Subcutaneous -Tissue Removed Subcutaneous -Post Debridement (cm) - Length 0.4 -Post Debridement (cm) - Width 0.3 -Post Debridement (cm) - Depth 0.1 -Total Square (Post) (cm) 0.12 -Area of Debridement (cm) - Length 0.4 -Area of Debridement (cm) - Width 0.3 -Total Square (Area) (cm) 0.12 -Tunneling No -Circular Undermining No -Wound/Ulcer Outcome Not Healed -Ulcer Cleansing Rinsed/ Irrigated with Saline -Foul Odor after Cleansing No -Bioengineered Tissue No -Bleeding Controlled with Pressure -Treatment Response Procedure Tolerated Well -Debridement - Subq, 1st 20sq cm Yes Pain Scale: 0-10 Numeric Is Patient Pain Free? Yes - Nurse 3 - General Ulcer D/C NN Start: 09/17/23 09:45 Freq: Status: Active Protocol: Activity Type Activity Date Activity User E-sign Co-sign Detail Recorded Client Recorded Date Recorded By Document 09/17/23 10:08 wound center 09/17/23 10:09 09/17/23 10:08 Wound Care Center Nurse 3 #1 LT ANTERIOR LE -Primary Dressing Applied Promogran Luz Matter -Primary Dressing Covered/Secured with Dry Gauze & Roll Gauze, Secured with Tape -Promogran Luz Matter 1 Pain Scale: 0-10 Numeric Is Patient Pain Free? Yes WC - Visit Discharge Discharge Condition Stable Ambulatory Status Ambulatory Transportation Private Auto Medication Reconcilliation completed & No provided to patient/care provider Clinical Summary of Care Provided Yes Assessment/Plan Assessment/Plan (1) Puncture wound of left leg excluding thigh: CODE(S): S81.832A - Puncture wound without foreign body, left lower leg, initial encounter QUALIFIERS: Encounter type: subsequent encounter Qualified Code(s): S81.832D - Puncture wound without foreign body, left lower leg, subsequent encounter (2) Cat bite of left lower leg: CODE(S): S81.852A - Open bite, left lower leg, initial encounter; W55.01XA - Bitten by cat, initial encounter QUALIFIERS: Encounter type: initial encounter Qualified Code(s): S81.852A - Open bite, left lower leg, initial encounter; W55.01XA - Bitten by cat, initial encounter (3) Tobacco abuse: CODE(S): Z72.0 - Tobacco use (4) History of COPD: CODE(S): Z87.09 - Personal history of other diseases of the respiratory system (5) Venous (peripheral) insufficiency: CODE(S): I87.2 - Venous insufficiency (chronic) (peripheral) PLAN: Plan Debridement done as documented above, procedure was well-tolerated. Continues to show good improvement. Good granulation and reduction in circumference. Continue daily 10 minutes Dakins soak, Promogran and ABD. Continue optimal protein intake, compression, leg elevation and exercise as tolerated. Smoking cessation has been recommended. Her questions were answered and she was advised to let us know if she has any further questions or concerns. Follow-up in a week or sooner if needed. This note was generated with [employer] dictation software. It may contain incorrect words, spelling, and punctuation that were not noted in checking the note before signing.
[2023-09-24 09:27] VITALS: BP 124/67; PULSE 84; RESP 18; TEMP 36.1; BMI 22.4
--- NOTE | 2023-09-24 09:36 | PCM.WC.PN ---
History of Present Illness Date of Service: 09/24/23 Chief Complaint: No healing Left Leg Wound History of Wound: Ms. Noble is a 78-year-old who was referred here due to nonhealing left leg wound. Believes this started about 2 weeks ago. Not really sure about how it started but thinks she may have been scratched by her cat. Was seen at the urgent care and initially put on Augmentin however, due to nonhealing she represented. Following cleaning of the wound, cultures were taken. Also switched from Augmentin to metronidazole and doxycycline. She reports drainage. Has been applying bacitracin twice daily. No known history of diabetes. History of venous insufficiency status post procedure to her left lower extremity, has not been using her compression stockings. Smokes. Has not had any recent labs done. No chills, fever or otherwise feeling of unwell reported. Progress of Wound: No new concerns at this time. Essentially healed. Objective Data Objective Data Vital Signs: Vital Signs Temp Pulse Resp BP O2 Del Method 97.0 F L 84 18 124/67 H Room Air 09/24/23 09:27 09/24/23 09:27 09/24/23 09:27 09/24/23 09:27 09/24/23 09:27 Oxygen Delivery Method Room Air Weight: 127 lb Body Mass Index (BMI) 22.4 Charges/Coding Visit Charges Office Visits / Consults: 01539 OV L3 Est 20min Physical Exam Const alert, oriented x3 and no apparent distress General Appearance: cooperative, comfortable and well kempt HEENT normocephalic, head/scalp atraumatic and hearing grossly normal bilaterally Eyes EOMs intact bilaterally Neck full ROM General: normal visual inspection Resp normal respiratory effort Extremity General Extremity: edema Neuro oriented x3, CN's II-XII intact bilaterally, moves all extremities and no focal motor deficits Psych mental status grossly normal, thought process normal, cooperative, affect normal and speech normal Debridement Note Debridement Note No debridement was completed: No debridement was completed today Post-Debridement Measurements and Additional Note: Post-Debridement Measurements/Treatment RENEE - Nurse 1 - General Ulcer Assessment Start: 09/17/23 09:45 Freq: Status: Active Protocol: TANESHA Activity Type Activity Date Activity User E-sign Co-sign Detail Recorded Client Recorded Date Recorded By Document 09/17/23 09:46 KW wound center 09/17/23 09:50 KW Document 09/24/23 09:27 KW g 09/24/23 09:30 KW 09/17/23 09/24/23 09:46 09:27 - Today's Visit Information Type of service Follow-up Visit Follow-up Visit (Physician/ASSOCIATE SCHOOL PSYCHOLOGIST (Physician/ASSOCIATE SCHOOL PSYCHOLOGIST ) ) Arrival Mode Ambulatory Ambulatory Patient Identification Verified (Name & Yes Yes ) Height and Weight Body Mass Index (BMI) 22.4 22.4 BMI Classification Normal Normal Vital Signs Temperature (97.8 F-99.1 F) 98.5 F 97.0 F L Temperature Source Temporal Temporal Pulse Rate (60-100) 100 84 Pulse Location Monitor Monitor Respiratory Rate (12-18) 18 18 Respiratory rate source Observation Observation Oxygen Delivery Method Room Air Room Air Blood Pressure (90/60-120/80) 102/60 124/67 H Blood Pressure Mean (mm Hg) 74 86 Source Monitor Monitor Position Semi-Fowlers Semi-Fowlers Blood Pressure Location Left Arm Left Arm History Since Last Visit- (Skip if this is Patient's initial visit) Have you changed medications since your No No last visit? Any new allergies or adverse reactions No No Had a fall/change in ADL's that may No No increase risk of falls Signs or symptoms of abuse and/or No No neglect since last visit Have you been in the hospital since your No No last visit? Has dressing in place as prescribed Yes Yes Has compression in place as prescribed Yes Yes Has offloadiing in place as prescribed N/A N/A Experienced any changes in pain level or No No management Left Footwear Regular Shoe Regular Shoe Right Footwear Regular Shoe Regular Shoe Pain Scale: 0-10 Numeric Is Patient Pain Free? Yes Yes - Nurse 1 - General Ulcer Measurement Start: 09/17/23 09:45 Freq: Status: Active Protocol: Activity Type Activity Date Activity User E-sign Co-sign Detail Recorded Client Recorded Date Recorded By Document 09/17/23 09:46 KW wound center 09/17/23 09:50 KW Document 09/24/23 09:27 KW g 09/24/23 09:30 KW 09/17/23 09/24/23 09:46 09:27 Wound Center Nurse 1 #1 LT ANTERIOR LE -Current Size (cm) - Length 0.4 0.1 -Current Size (cm) - Width 0.4 0.1 -Current Size (cm) - Depth 0.1 0 -Total Square Cm 0.16 0.01 -Date of Last Picture (Recall this 09/24/23 field) -Exudate Amt Small -Exudate Type Serosanguineous -Wound Margin Distinct, Distinct, Outline Outline Attached Attached -Granulation Amt Large (67-100%) -Granulation Quality Red -Necrosis Amt Small (1-33%) -Necrotic Tissue Type Adherent Slough -Texture (Florina-wound Skin Appearance) Assessed Assessed -Moisture (Florina-wound Skin Appearance) Assessed Assessed -Color (Florina-wound Skin Appearance) Assessed Assessed -Temperature (Florina-wound Skin No Abnormality No Abnormality Appearance) (Pt Warm) (Pt Warm) -Tenderness on Palpation (Florina-wound No No Skin Appearance) -Ulcer Cleansing Rinsed/ Rinsed/ Irrigated with Irrigated with Saline Saline -Foul Odor after Cleansing No No -Anesthetic Used 5% Lidocaine 5% Lidocaine Gel Gel Left Calf (cm) 33.5 Left Ankle (cm) 23.3 WC - Nurse 2 - General Ulcer CM Notes Start: 09/17/23 09:45 Freq: Status: Active Protocol: Activity Type Activity Date Activity User E-sign Co-sign Detail Recorded Client Recorded Date Recorded By Document 09/17/23 09:57 GM 09/17/23 09:58 Document 09/24/23 09:34 [facility] 09/24/23 09:34 09/17/23 09/24/23 09:57 09:34 Wound Center Nurse 2 #1 LT ANTERIOR LE -Time 09:57 09:34 -Correct Patient Yes Yes -Correct Side, Site, Position Yes Yes -Correct Procedure Yes -Procedure Performed Yes -Type of Procedure Debridement -Clinical Debridement Subcutaneous -Tissue Removed Subcutaneous -Post Debridement (cm) - Length 0.4 -Post Debridement (cm) - Width 0.3 -Post Debridement (cm) - Depth 0.1 -Total Square (Post) (cm) 0.12 -Area of Debridement (cm) - Length 0.4 -Area of Debridement (cm) - Width 0.3 -Total Square (Area) (cm) 0.12 -Tunneling No -Circular Undermining No -Wound/Ulcer Outcome Not Healed Healed- Epithelialized -Ulcer Cleansing Rinsed/ Irrigated with Saline -Foul Odor after Cleansing No -Bioengineered Tissue No -Bleeding Controlled with Pressure -Treatment Response Procedure Tolerated Well -Debridement - Subq, 1st 20sq cm Yes Pain Scale: 0-10 Numeric Is Patient Pain Free? Yes Yes - Nurse 3 - General Ulcer D/C NN Start: 09/17/23 09:45 Freq: Status: Active Protocol: Activity Type Activity Date Activity User E-sign Co-sign Detail Recorded Client Recorded Date Recorded By Document 09/17/23 10:08 wound center 09/17/23 10:09 09/17/23 10:08 Wound Care Center Nurse 3 #1 LT ANTERIOR LE -Primary Dressing Applied Promogran Luz Matter -Primary Dressing Covered/Secured with Dry Gauze & Roll Gauze, Secured with Tape -Promogran Luz Matter 1 Pain Scale: 0-10 Numeric Is Patient Pain Free? Yes - Visit Discharge Discharge Condition Stable Ambulatory Status Ambulatory Transportation Private Auto Medication Reconcilliation completed & No provided to patient/care provider Clinical Summary of Care Provided Yes Assessment/Plan Assessment/Plan (1) Puncture wound of left leg excluding thigh: CODE(S): S81.832A - Puncture wound without foreign body, left lower leg, initial encounter QUALIFIERS: Encounter type: subsequent encounter Qualified Code(s): S81.832D - Puncture wound without foreign body, left lower leg, subsequent encounter (2) Cat bite of left lower leg: CODE(S): S81.852A - Open bite, left lower leg, initial encounter; W55.01XA - Bitten by cat, initial encounter QUALIFIERS: Encounter type: initial encounter Qualified Code(s): S81.852A - Open bite, left lower leg, initial encounter; W55.01XA - Bitten by cat, initial encounter (3) Tobacco abuse: CODE(S): Z72.0 - Tobacco use (4) History of COPD: CODE(S): Z87.09 - Personal history of other diseases of the respiratory system (5) Venous (peripheral) insufficiency: CODE(S): I87.2 - Venous insufficiency (chronic) (peripheral) PLAN: Plan No debridement completed today. Wound essentially healed. Continue moistened Promogran and Adaptic over area for 2 weeks and then stop. Moisturize adequately and continue consistent use of compression stockings, she voiced understanding. Her questions were answered and she was advised to let us know if she has any further questions or concerns. Discharge from the wound clinic. This note was generated with [employer] dictation software. It may contain incorrect words, spelling, and punctuation that were not noted in checking the note before signing.
--- NOTE | 2023-10-02 11:19 | WC ---
09/24/2023 LT TRINA MERRILL
== END 2023-09-25 09:52 | disposition home or self-care (01) ==
LOC: WC 09:30
PROVIDERS: PCP Family Medicine; Referring Provider Physician Assistant; Visit Provider Internal Medicine
DX: S81.832A Puncture wound without foreign body, left lower leg, initial encounter (principal); S81.852A Open bite, left lower leg, initial encounter; W55.01XA Bitten by cat, initial encounter; F17.210 Nicotine dependence, cigarettes, uncomplicated; Z87.09 Personal history of other diseases of the respiratory system; I87.2 Venous insufficiency (chronic) (peripheral)
CPT/HCPCS: 11042

== ENCOUNTER 2023-11-12 14:06 | Inpatient (IN) | payer MEDICARE, SELFPAY ==
[2023-11-12] VITALS (8 sets, daily range): BP systolic 103–153; BP diastolic 62–87; PULSE 68–93; RESP 16–18; TEMP 36.1–36.8; O2SAT 93–100; BMI 29.5; BMI 26.9
--- NOTE | 2023-11-12 14:44 | CT_ITS ---
STUDY: CT CERVICAL SPINE WITHOUT CONTRAST REASON FOR EXAM: Female, 78 years old. Fall RADIATION DOSAGE (If Supplied By Facility): CTDIvol = ( 15.24 ) mGy, DLP = ( 274.85 ) mGycm TECHNIQUE: High resolution transaxial imaging was performed without contrast material. Sagittal and coronal images were reconstructed. Individualized dose optimization techniques were used for this CT. COMPARISON: No relevant prior comparison study available FINDINGS: BONES: There is no fracture in the cervical spine. The dens is intact. The vertebral body heights are maintained. ALIGNMENT: There is no dislocation. Alignment is normal. DISC SPACES: There are mild degenerative changes. LUNG APICES: There are emphysematous changes with biapical scarring noted in the visualized lungs. SOFT TISSUES: The visualized paraspinal soft tissues are within normal limits. CT/Spine Cervical without Contras IMPRESSION: No fracture or dislocation in the cervical spine. Normal alignment. Mild degenerative change. Emphysema with biapical scarring. Electronically Signed: Mac Duran MD at 15:54 EDT ,
--- NOTE | 2023-11-12 14:44 | EKG12_ITS ---
Test Reason : DYSRHYTHMIA Blood Pressure : / mmHG Vent. Rate : 083 BPM Atrial Rate : 083 BPM P-R Int : 198 ms QRS Dur : 074 ms QT Int : 382 ms P-R-T Axes : 046 -27 028 degrees QTc Int : 448 ms Poor data quality, interpretation may be adversely affected Normal sinus rhythm Septal infarct , age undetermined Inferior infarct , age undetermined Abnormal ECG Confirmed by MIR HELTON MD ([id number]), social media editor RADHA CAMARGO ([id number]) on 11/13/2023 9:29:55 AM Referred By: TB Confirmed By:MIR HELTON MD
--- NOTE | 2023-11-12 14:44 | CT_ITS ---
STUDY: CT BRAIN WITHOUT CONTRAST REASON FOR EXAM: Female, 78 years old. Fall RADIATION DOSAGE (If Supplied By Facility): CTDIvol = ( 44.99 ) mGy, DLP = ( 779.24 ) mGycm TECHNIQUE: Transaxial CT imaging of the brain was performed without administration of intravenous contrast material. Individualized dose optimization techniques were used for this CT. COMPARISON: Prior study dated: 11/22/2020 FINDINGS: PARENCHYMA: There is no acute bleed or infarct. There are stable chronic ischemic and atrophic changes. VENTRICLES: There is no hydrocephalus. MASTOID AIR CELLS AND PARANASAL SINUSES: The visualized paranasal sinuses are clear. The mastoid air cells are clear. BONES: There is no skull fracture. SOFT TISSUES: The visualized soft tissues are within normal limits. CT/Brain/Head without Contrast IMPRESSION: Stable chronic ischemic and atrophic changes. No acute intracranial abnormality. Electronically Signed: Mac Duran MD at 15:44 EDT ,
[2023-11-12] MEDS: Morphine 4 MG/ML Syringe IV ×2 (15:06→17:03)
[2023-11-12] MEDS: Ondansetron 4 MG/2 ML Vial IV (15:06)
[2023-11-12] MEDS: 0.9% Normal Saline (1000mL) 1,000 ML 999 ML IV (15:06)
[2023-11-12 15:15] LABS: Absolute Lymphocyte Count 0.74 X10^3/uL (0.83-4.51); Absolute Neutrophil Count 8.8 X10^3/uL (2.0-7.7); Basophil# 0.04 X10^3/uL; Basophil% 0.4 % (0-1); Eosinophils% 2.9 % (0-5); Hematocrit 39.2 % (37-47); Hemoglobin 12.7 g/dL (12.0-15.0); Lymphocyte # 0.74 X10^3/ul (0.83-4.51); Lymphocyte % 7.1 % (19-41); Mean Corp Hgb Conc 32.4 g/dL (32-36); Mean Corpuscular Hgb 29.7 pg (27.0-32.0); Mean Corpuscular Volume 91.6 fL (81-99); Mean Platelet Vol. 9.9 fl (6.2-12.0); Monocyte% 4.8 % (0-10); NRBC Flagged by Analyzer 0 % (0-5); Neutrophil # 8.77 X10^3/uL (2.7-7.7); Neutrophil % 84.2 % (47-70); Platelet Count 191 K/mm3 (150-450); RBC Distribution Width CV 14.9 % (11.6-14.6); RBC Distribution Width SD 50.3 fl (35.1-43.9); Red Blood Count 4.28 M/mm3 (4.2-5.4); White Blood Count 10.4 K/mm3 (4.4-11.0)
--- NOTE | 2023-11-12 15:30 | RAD_ITS ---
INDICATION: fall pain EXAMINATION/TECHNIQUE: X-RAY - XR Hip Unilateral with Pelvis when performed; 2-3 Views COMPARISON: Pelvis x-ray dated 11/23/2013 FINDINGS: PELVIC BONES: There is an angulated intertrochanteric fracture of the right femur. The remainder of the visualized osseous structures are intact. Sacroiliac joints are unremarkable. No widening of the pubic symphysis. HIPS: There is no dislocation. There are mild degenerative changes in the right hip. SOFT TISSUES: No soft tissue swelling or gas. RAD/HIP, UNI W/ Pelvis 2-3 Views IMPRESSION: Angulated intertrochanteric fracture of the right femur. Electronically Signed: Mac Duran MD at 16:15 EDT ,
[2023-11-12 15:36] LABS: Anion Gap 4 (5-15); BUN 11 mg/dL (7-18); BUN/Creat Ratio 12.4 RATIO (10-20); Calcium,Total 8.9 mg/dL (8.5-10.1); Chloride 109 mmol/L (98-107); Creatinine, Serum 0.88 mg/dL (0.55-1.02); EST Glomerular Filtration Rate 66 mL/min (>60); Est Glom Filt Rate - Afr Amer 79 mL/min (>60); Estimated Creatinine Clearance 47.44 ml/min; Glucose 130 mg/dL (74-106); Potassium 3.7 mmol/L (3.5-5.1); Sodium Level 138 mmol/L (136-145); Troponin-I HS < 3 pg/mL (3.0-54.0)
--- NOTE | 2023-11-12 15:41 | EDS_ITS ---
HPI History of Present Illness Chief Complaint: Fall Narrative Narrative: Patient is a 70-year-old female with a past medical history of COPD, GERD, tobacco use who presents to the emergency department the chief complaint of right hip pain. Patient states that she was standing on the bed trying to clean her fan when she lost her balance she fell and landed on the right side of her body. She states that she could not get up and ambulate she had significant amount of right hip pain. Patient states that she did hit her head she did not pass out lose consciousness. Patient denies any blood thinning medications. Patient remembers entire event. Patient rates her pain a 8 out of 10 in her right hip. Patient states that she last ate around 11:30 AM this morning. [facility] Medical History Venous (peripheral) insufficiency Tobacco abuse Puncture wound of left leg excluding thigh Wears hearing aid Loss of hearing Wears dentures Open wound Cat bite of left lower leg Smoking hx COPD (chronic obstructive pulmonary disease) Back problem Diarrhea GERD (gastroesophageal reflux disease) Depression with anxiety Arthritis History of back problems History of colon cancer History of thyroid cancer Home Medications ?Medication ?Instructions ?Recorded ?Last Taken ?Type lorazepam 1 mg tablet 1 mg PO QHS 06/11/13 06/11/13 History 1 mg omeprazole 20 mg capsule,delayed 40 mg PO BID GERD 06/11/13 07/31/23 06:30 History release meloxicam 15 mg tablet 15 mg PO DAILY 06/12/13 06/12/13 History 15 mg cholecalciferol (vitamin D3) 1,250 50,000 units PO QWEEK 01/24/19 Unknown History mcg (50,000 unit) capsule pravastatin 10 mg tablet 10 mg PO QHS 01/24/19 Unknown History liothyronine 5 mcg tablet 5 mcg PO DAILY 07/09/23 Unknown History sertraline 100 mg tablet 150 mg PO DAILY 07/09/23 Unknown History levothyroxine 100 mcg tablet 100 mcg PO DAILY 07/28/23 07/31/23 06:30 History mirtazapine 45 mg tablet 45 mg PO QHS 07/28/23 Unknown History doxycycline monohydrate 100 mg 100 mg PO BID #20 caps 08/05/23 Unknown Rx capsule metronidazole 500 mg tablet 500 mg PO TID #30 tabs 08/05/23 Unknown Rx Allergy/AdvReac Type Severity Reaction Status Date / Time Sulfa (Sulfonamide Allergy Rash Verified 11/12/23 14:15 Antibiotics) Family History Father Colon cancer Mother Heart disease Osteoporosis Surgical History History of partial thyroidectomy History of colectomy History of hysterectomy Social History Smoking Status: Current every day smoker tobacco type: cigarettes alcohol intake: never substance use type: does not use ROS ROS ED ROS Narrative Constitutional: Denies headaches, lightheadedness, dizziness, fevers, chills Eyes: Denies change in vision double vision blurry vision Cardiovascular: Denies chest pain or palpitations Respiratory: Denies coughing wheezing shortness of breath Abdomen: Denies abdominal pain nausea vomiting diarrhea : Denies any urinary symptoms Neurological: Denies numbness, weakness, tingling Musculoskeletal: Complains of right hip pain as noted above Skin: Denies rashes or lesions EXAM Physical Exam Narrative Exam Narrative: General: Patient lying in bed did appear to be uncomfortable secondary to right hip pain Head: Atraumatic, normocephalic Eyes: PERRL bilaterally, EOMI bilaterally, no conjunctival injection noted Neck: Soft, supple, trachea midline, no tenderness palpation midline cervical spine Cardiovascular: Regular rate and rhythm no murmurs gallops rubs noted Respiratory: Clear to auscultation bilaterally no rales rhonchi wheeze noted Abdomen: Soft, nondistended, tender to palpation, bowel sounds present x 4 Musculoskeletal: Patient has significant mount of pain with attempted logroll on the right lower extremity her right lower extremity shortened externally rotated. All other bony prominences palpated and joints taken through full range of motion no pain elicited. No pain to palpation in the midline thoracolumbar spine Extremities: +4/5 strength noted in the bilateral upper extremities as well as the left lower extremity, DP pulses +2/4 in the bilateral lower extremities Neurological: Patient following commands knew that she was at [facility] year is 2023 sensation grossly intact in the bilateral lower extremities Skin: Warm, dry, intact Const Vital Signs: 11/12/23 14:11 11/12/23 14:15 11/12/23 15:06 Temperature 96.9 F L Temperature Source Temporal Pulse Rate 85 84 Respiratory Rate 18 16 Respiratory Effort Normal Respiratory Depth Normal Respiratory Pattern Normal Blood Pressure 153/75 H 103/62 Blood Pressure Mean 101 75 Pulse Ox 96 98 Oxygen Delivery Method Room Air Room Air Room Air 11/12/23 16:00 Temperature Temperature Source Pulse Rate 81 Respiratory Rate 16 Respiratory Effort Respiratory Depth Respiratory Pattern Blood Pressure 133/78 H Blood Pressure Mean 96 Pulse Ox 99 Oxygen Delivery Method Room Air MDM MDM MDM Narrative Medical decision making narrative: Patient is a 70-year-old female who presented to the emergency department with chief complaint of fall and right hip pain. Patient will have a workup performed here on the differential diagnosis includes but not limited to hip fracture, pelvis fracture, intracranial hemorrhage. Once workup is obtained reviewed she will be reevaluated. Patient be given 4 mg of morphine and Zofran. Patient CBC reviewed and showed no leukocytosis white blood count normal at 10.4, hemoglobin stable 12.7, plate count normal at 191. Patient sodium normal 137, potassium normal 3.7, creatinine was noted to be normal at 0.88. Patient's troponin was less than 3. Patient's urinalysis revealed no evidence of infection. Patient's chest x-ray reviewed and showed no acute thoracic pathology. Patient's x-ray of her hip and pelvis showed a angulated intertrochanteric fracture of the right femur. Patient's cervical spine x-ray showed no fracture or dislocation. Patient CT head and brain without contrast showed stable chronic ischemic and chronic changes no acute intracranial abnormality. Patient's EKG was reviewed as well showed sinus rhythm. Discussed case with Dr. Sylvester who states that he will likely operate on the patient tomorrow. I did clarify with the patient and she states that she has seen Dr. Nelson orthopedic surgeon in the past however I was notified this individual is no longer practicing. Did discuss case with hospitalist who accept patient for admission. Patient was notified with all question concerns answered she is requesting more pain medication patient was given 4 mg of morphine. Lab Data Labs: Laboratory Results - last 24 hr 11/12/23 11/12/23 15:09 15:55 WBC 10.4 RBC 4.28 Hgb 12.7 Hct 39.2 MCV 91.6 MCH 29.7 MCHC 32.4 RDW Std Deviation 50.3 H RDW Coeff of Jaclyn 14.9 H Plt Count 191 MPV 9.9 Immature Gran % (Auto) 0.600 Neut % (Auto) 84.2 H Lymph % (Auto) 7.1 L [place] % (Auto) 4.8 Eos % (Auto) 2.9 Baso % (Auto) 0.4 Absolute Neuts (auto) 8.8 H Absolute Lymphs (auto) 0.74 L Nucleated RBC % 0 Sodium 138 Potassium 3.7 Chloride 109 H Carbon Dioxide 25.0 Anion Gap 4 L BUN 11 Creatinine 0.88 Estim Creat Clear Calc 47.44 Est GFR (MDRD) Af Amer 79 Est GFR (MDRD) Non-Af 66 BUN/Creatinine Ratio 12.4 Glucose 130 H Calcium 8.9 Troponin I High Sens < 3 L Urine Color Yellow Urine Clarity Clear Urine pH 6.0 Ur Specific [place] 1.010 Urine Protein 15 H Urine Glucose (UA) Normal Urine Ketones Negative Urine Occult Blood 10 H Urine Nitrite Negative Urine Bilirubin Negative Urine Urobilinogen Normal Ur Leukocyte Esterase Negative Radiography Diagnostic Testing: Clinical Impression(s) from Imaging Studies Brain CT 11/12/23 14:44 IMPRESSION: Stable chronic ischemic and atrophic changes. No acute intracranial abnormality. Electronically Signed: Mac Duran MD at 15:44 EDT , Cervical Spine CT 11/12/23 14:44 IMPRESSION: No fracture or dislocation in the cervical spine. Normal alignment. Mild degenerative change. Emphysema with biapical scarring. Electronically Signed: Mac Duran MD at 15:54 EDT , Hip/Pelvis X-Ray 11/12/23 15:30 IMPRESSION: Angulated intertrochanteric fracture of the right femur. Electronically Signed: Mac Duran MD at 16:15 EDT , Chest X-Ray 11/12/23 15:44 IMPRESSION: No acute thoracic pathology. Electronically Signed: Mac Duran MD at 16:09 EDT , Discharge Plan Triage Chief Complaint: Fall ED Provider: Marquise Francois Dx/Rx/DC Orders Primary Care Provider: Zuly Blas Disposition Disposition: Acute Care Hospital [facility]
--- NOTE | 2023-11-12 15:44 | RAD_ITS ---
STUDY: X-RAY CHEST REASON FOR EXAM: Female, 78 years old. Fall TECHNIQUE: Frontal view of the chest COMPARISON: 12/31/2017 FINDINGS: The lungs are hyperinflated, but clear. There are no pleural effusions. There is no pneumothorax. The heart is stable in size. The visualized osseous structures are within normal limits. RAD/Chest 1 View (Portable) IMPRESSION: No acute thoracic pathology. Electronically Signed: Mac Duran MD at 16:09 EDT ,
[2023-11-12 16:04] LABS: Color, Urine Yellow (Yellow); Glucose, Dipstick Normal (Normal); Ketone-Dipstick Negative (Negative); Leukocyte Esterase-Dipstick Negative /ul (Negative); Nitrite-Dipstick Negative (Negative); Occult Blood-Urine 10 /ul (Negative); Protein-Dipstick 15 mg/dl (Negative); Urine Bilirubin Dipstick Negative (Negative); Urine Clarity Clear (Clear); Urine Urobilinogen Normal (Normal)
--- NOTE | 2023-11-12 16:56 | PCM.HP.STD ---
HPI - General General Date of Admission: 11/12/23 Date of Service: 11/12/23 Chief Complaint: Fall with Right hip pain HPI Narrative AMOS RIOS, is a 70-year-old female history of hypothyroidism, GERD, COPD, tobacco use, mood disorder presented to [facility] ED 11/12/2023 due to fall while cleaning ceiling fan and had subsequent right hip pain, also hit her head. Patient lost balance while trying to clean her fan and landed on right side of her body and was unable to get up and ambulate, hit her head but not pass out or lose consciousness. Hip/pelvis x-ray in ED demonstrated right hip fracture, Ortho contacted and recommended admission for surgical evaluation. Hospitalist contacted for admission. Patient evaluated at bedside with family members present and she reports falling while attempting to clean her fan and hitting her right hip and head, having significant hip pain and has not on back of head. Has had a bit of nausea intermittently since she fell but denies any other acute or localizing complaints [facility] Medical History Venous (peripheral) insufficiency Tobacco abuse Puncture wound of left leg excluding thigh Wears hearing aid Loss of hearing Wears dentures Open wound Cat bite of left lower leg Smoking hx COPD (chronic obstructive pulmonary disease) Back problem Diarrhea GERD (gastroesophageal reflux disease) Depression with anxiety Arthritis History of back problems History of colon cancer History of thyroid cancer Home Medications ?Medication ?Instructions ?Recorded ?Last Taken ?Type lorazepam 1 mg tablet 1 mg PO QHS 06/11/13 06/11/13 History 1 mg omeprazole 20 mg capsule,delayed 40 mg PO BID GERD 06/11/13 07/31/23 06:30 History release meloxicam 15 mg tablet 15 mg PO DAILY 06/12/13 06/12/13 History 15 mg cholecalciferol (vitamin D3) 1,250 50,000 units PO QWEEK 01/24/19 Unknown History mcg (50,000 unit) capsule pravastatin 10 mg tablet 10 mg PO QHS 01/24/19 Unknown History liothyronine 5 mcg tablet 5 mcg PO DAILY 07/09/23 Unknown History sertraline 100 mg tablet 150 mg PO DAILY 07/09/23 Unknown History levothyroxine 100 mcg tablet 100 mcg PO DAILY 07/28/23 07/31/23 06:30 History mirtazapine 45 mg tablet 45 mg PO QHS 07/28/23 Unknown History doxycycline monohydrate 100 mg 100 mg PO BID #20 caps 08/05/23 Unknown Rx capsule metronidazole 500 mg tablet 500 mg PO TID #30 tabs 08/05/23 Unknown Rx Allergy/AdvReac Type Severity Reaction Status Date / Time Sulfa (Sulfonamide Allergy Rash Verified 11/12/23 14:15 Antibiotics) Family History Father Colon cancer Mother Heart disease Osteoporosis Surgical History History of colectomy History of hysterectomy History of partial thyroidectomy Social History Smoking Status: Current every day smoker tobacco type: cigarettes alcohol intake: never substance use type: does not use ROS ROS Narrative General: Denies fever/chills HENT: Denies headache but does have sore spot on back of head, denies stuffy nose, denies sore throat EYES: Denies changes in vision Resp: Denies cough, denies shortness of breath Cardiac: Denies chest pain GI: Denies abdominal pain, has occasional diarrhea, little bit of intermittent nausea : Denies changes in urination Extremity: Denies swelling MSK: Denies weakness, pain in right hip Neuro: Denies any numbness/tingling Heme: Denies any bleeding or bruising Skin: Denies rashes Psychiatric: No complaints voiced Vital Signs Vital Signs Vital Signs: 11/12/23 14:11 11/12/23 14:15 11/12/23 15:06 Temperature 96.9 F L Temperature Source Temporal Pulse Rate 85 84 Respiratory Rate 18 16 Respiratory Effort Normal Respiratory Depth Normal Respiratory Pattern Normal Blood Pressure 153/75 H 103/62 Blood Pressure Mean 101 75 Pulse Ox 96 98 Oxygen Delivery Method Room Air Room Air Room Air 11/12/23 16:00 Temperature Temperature Source Pulse Rate 81 Respiratory Rate 16 Respiratory Effort Respiratory Depth Respiratory Pattern Blood Pressure 133/78 H Blood Pressure Mean 96 Pulse Ox 99 Oxygen Delivery Method Room Air Weight Weight: 70.9 kg Body Mass Index (BMI) 29.5 Physical Exam Narrative General: Alert, oriented, no apparent distress HEENT: Atraumatic, normocephalic Eyes: Anicteric, normal conjunctiva, extraocular movements grossly intact Neck: Supple Respiratory: Clear to auscultation bilaterally, normal respiratory effort Cardiovascular: Regular rate and rhythm GI: Soft, nontender, nondistended Extremities: No edema Musculoskeletal: Right hip externally rotated otherwise moving all extremities Neuro: No overt focal neurological deficits Skin: No rashes appreciated Psych: Cooperative Results Lab / Micro Data 11/12/23 15:09 11/12/23 15:09 Labs: Laboratory Results - last 24 hr 11/12/23 15:09: WBC 10.4, RBC 4.28, Hgb 12.7, Hct 39.2, MCV 91.6, MCH 29.7, MCHC 32.4, RDW Std Deviation 50.3 H, RDW Coeff of Jaclyn 14.9 H, Plt Count 191, MPV 9.9, Immature Gran % (Auto) 0.600, Neut % (Auto) 84.2 H, Lymph % (Auto) 7.1 L, [place] % (Auto) 4.8, Eos % (Auto) 2.9, Baso % (Auto) 0.4, Absolute Neuts (auto) 8.8 H, Absolute Lymphs (auto) 0.74 L, Nucleated RBC % 0, Sodium 138, Potassium 3.7, Chloride 109 H, Carbon Dioxide 25.0, Anion Gap 4 L, BUN 11, Creatinine 0.88, Estim Creat Clear Calc 47.44, Est GFR (MDRD) Af Amer 79, Est GFR (MDRD) Non-Af 66, BUN/Creatinine Ratio 12.4, Glucose 130 H, Calcium 8.9, Troponin I High Sens < 3 L 11/12/23 15:55: Urine Color Yellow, Urine Clarity Clear, Urine pH 6.0, Ur Specific [place] 1.010, Urine Protein 15 H, Urine Glucose (UA) Normal, Urine Ketones Negative, Urine Occult Blood 10 H, Urine Nitrite Negative, Urine Bilirubin Negative, Urine Urobilinogen Normal, Ur Leukocyte Esterase Negative Imaging Radiology Impression Brain CT 11/12/23 14:44 IMPRESSION: Stable chronic ischemic and atrophic changes. No acute intracranial abnormality. Electronically Signed: Mac Duran MD at 15:44 EDT , Cervical Spine CT 11/12/23 14:44 IMPRESSION: No fracture or dislocation in the cervical spine. Normal alignment. Mild degenerative change. Emphysema with biapical scarring. Electronically Signed: Mac Duran MD at 15:54 EDT , Hip/Pelvis X-Ray 11/12/23 15:30 IMPRESSION: Angulated intertrochanteric fracture of the right femur. Electronically Signed: Mac Duran MD at 16:15 EDT , Chest X-Ray 11/12/23 15:44 IMPRESSION: No acute thoracic pathology. Electronically Signed: Mac Duran MD at 16:09 EDT , Assessment & Plan Assessment/Plan (1) Closed right hip fracture: (2) Tobacco abuse: (3) History of gastroesophageal reflux (GERD): (4) History of COPD: (5) History of depression: (6) History of colon cancer: (7) Acquired hypothyroidism: PLAN: Plan # Right hip fracture after fall -Angulated intertrochanteric fracture of right femur seen on x-ray -Ortho consult -Pain control -PT/OT #Hypothyroidism -Continue Synthroid #GERD -Continue PPI # Mood disorder -Continue home medications once verified #COPD by history -As needed albuterol #Hx colon cancer -Occasionally has diarrhea after colon surgery no other GI complaints #Tobacco use -Advise cessation -Pt trying to cut back -Does not want nicotine patch #DVT ppx: SCDs Liliane Badillo MD Charges/Coding Visit Charges Inpatient E&M: 38569 Init Hosp L1
[2023-11-12] MEDS: Lactated Ringers 1,000 ML 100 ML IV (17:15)
[2023-11-12] MEDS: 0.9% Normal Saline (1000mL) 1,000 ML 50 ML IV (20:16)
[2023-11-12] MEDS: Menthol/Lanolin/Calamine/Znox 113 GM Tube 1 APPLIC TOPICAL (20:17)
[2023-11-12] MEDS: Acetaminophen 500 MG Tablet 1000 MG PO (20:18)
[2023-11-12] MEDS: Mirtazapine 15 MG Tablet 45 MG PO (20:19)
[2023-11-12] MEDS: Pantoprazole Sodium 40 MG Tablet PO (20:20)
[2023-11-12] MEDS: Morphine 2 MG/ML Syringe IV ×2 (20:20→23:10)
[2023-11-12] MEDS: Pravastatin 20 MG Tablet 10 MG PO (20:20)
[2023-11-12] MEDS: proCHLORPERazine 10 MG/2 ML Vial 5 MG IV (22:49)
[2023-11-12] MEDS: MELATONIN 3 MG TABLET PO (22:50)
[2023-11-13] VITALS (15 sets, daily range): BP systolic 95–146; BP diastolic 58–92; PULSE 75–87; RESP 14–18; TEMP 36.3–37.5; O2SAT 90–97; BMI 26.9
[2023-11-13] MEDS: Morphine 2 MG/ML Syringe IV ×2 (05:50→09:59)
[2023-11-13 06:33] LABS: Absolute Neutrophil Count 3.7 X10^3/uL (2.0-7.7); Basophil# 0.05 X10^3/uL; Basophil% 0.9 % (0-1); Eosinophil# 0.23 X10^3/uL; Eosinophils% 4.4 % (0-5); Hematocrit 35.8 % (37-47); Hemoglobin 11.4 g/dL (12.0-15.0); Lymphocyte % 15.2 % (19-41); Mean Corp Hgb Conc 31.8 g/dL (32-36); Mean Corpuscular Hgb 29.2 pg (27.0-32.0); Mean Corpuscular Volume 91.8 fL (81-99); Mean Platelet Vol. 11.1 fl (6.2-12.0); Monocyte# 0.47 X10^3/uL; Monocyte% 8.9 % (0-10); NRBC Flagged by Analyzer 0 % (0-5); Neutrophil # 3.69 X10^3/uL (2.7-7.7); Platelet Count 177 K/mm3 (150-450); RBC Distribution Width SD 50.3 fl (35.1-43.9); White Blood Count 5.3 K/mm3 (4.4-11.0)
[2023-11-13 06:37] LABS: International Normalized Ratio 1.1; Prothrombin Time (Protime)PT. 13.7 SECONDS (11.7-14.9)
[2023-11-13 07:22] LABS: Anion Gap 6 (5-15); BUN 8 mg/dL (7-18); Calcium,Total 8.1 mg/dL (8.5-10.1); Chloride 108 mmol/L (98-107); Creatinine, Serum 0.67 mg/dL (0.55-1.02); EST Glomerular Filtration Rate 91 mL/min (>60); Est Glom Filt Rate - Afr Amer 110 mL/min (>60); Estimated Creatinine Clearance 49.96 ml/min; Glucose 112 mg/dL (74-106); Potassium 3.6 mmol/L (3.5-5.1); Sodium Level 137 mmol/L (136-145); Thyroid Stim Hormone (TSH) 3.44 uIU/mL (0.358-3.74)
--- NOTE | 2023-11-13 07:49 | CONS.ORTHO ---
HPI Consult Data Date of Consult: 11/13/23 HPI Narrative HPI Narrative: AMOS RIOS, is a 78 F who presents with right hip pain following a fall at home. Patient was initially consulted with a different orthopedic provider but her care was transferred to [facility] late yesterday evening. I saw her in 311 this morning. She was trying to clean a ceiling fan and fell and had an impact on the side of the right hip onto a dresser. Prior to this injury she was ambulating without any ambulatory aid. She denies any other areas of pain other than the right hip. She had a nondisplaced pelvic fracture 8 to 10 years ago which was treated conservatively with bedrest. She has a presumed diagnosis of COPD but does not require any specific treatment for it. She is not on blood thinners. [facility] Medical History Venous (peripheral) insufficiency Tobacco abuse Puncture wound of left leg excluding thigh Wears hearing aid Loss of hearing Wears dentures Open wound Cat bite of left lower leg Smoking hx COPD (chronic obstructive pulmonary disease) Back problem Diarrhea GERD (gastroesophageal reflux disease) Depression with anxiety Arthritis History of back problems History of colon cancer History of thyroid cancer Home Medications ?Medication ?Instructions ?Recorded ?Last Taken ?Type lorazepam 1 mg tablet 1 mg PO QHS sleep 06/11/13 06/11/13 History 1 mg omeprazole 20 mg capsule,delayed 40 mg PO BID GERD 06/11/13 07/31/23 06:30 History release meloxicam 15 mg tablet 15 mg PO DAILY arthritis/pain 06/12/13 06/12/13 History 15 mg cholecalciferol (vitamin D3) 1,250 50,000 units PO QWEEK supple 01/24/19 Unknown History mcg (50,000 unit) capsule pravastatin 10 mg tablet 10 mg PO QHS cholesterol 01/24/19 Unknown History liothyronine 5 mcg tablet 5 mcg PO DAILY hypothyroid 07/09/23 Unknown History sertraline 100 mg tablet 150 mg PO DAILY depression 07/09/23 Unknown History levothyroxine 100 mcg tablet 100 mcg PO DAILY hypothyroid 07/28/23 07/31/23 06:30 History mirtazapine 45 mg tablet 45 mg PO QHS depression/anxiety 07/28/23 Unknown History bupropion HCl 150 mg tablet,12 hr 150 mg PO DAILY depression/anxiety 11/12/23 Unknown History sustained-release Allergy/AdvReac Type Severity Reaction Status Date / Time Sulfa (Sulfonamide Allergy Rash Verified 11/12/23 14:15 Antibiotics) Family History Father Colon cancer Mother Heart disease Osteoporosis Surgical History History of partial thyroidectomy History of colectomy History of hysterectomy Social History Smoking Status: Current every day smoker tobacco type: cigarettes alcohol intake: never substance use type: does not use Vital Signs Vital Signs Vital Signs: 11/12/23 14:11 11/12/23 14:15 11/12/23 15:06 Temperature 96.9 F L Temperature Source Temporal Pulse Rate 85 84 Pulse Strength Respiratory Rate 18 16 Respiratory Effort Normal Respiratory Depth Normal Respiratory Pattern Normal Blood Pressure 153/75 H 103/62 Blood Pressure Mean 101 75 Blood Pressure Source Blood Pressure Position Blood Pressure Location Pulse Ox 96 98 Oxygen Delivery Method Room Air Room Air Room Air 11/12/23 16:00 11/12/23 17:00 11/12/23 17:16 Temperature 98.0 F Temperature Source Pulse Rate 81 78 87 Pulse Strength Respiratory Rate 16 18 16 Respiratory Effort Respiratory Depth Respiratory Pattern Blood Pressure 133/78 H 126/87 H 132/69 H Blood Pressure Mean 96 100 90 Blood Pressure Source Blood Pressure Position Blood Pressure Location Pulse Ox 99 97 97 Oxygen Delivery Method Room Air Room Air 11/12/23 17:32 11/12/23 17:32 11/12/23 20:03 Temperature 97.9 F Temperature Source Temporal Pulse Rate 93 88 Pulse Strength Respiratory Rate 18 Respiratory Effort Respiratory Depth Respiratory Pattern Blood Pressure 142/71 H Blood Pressure Mean 94 Blood Pressure Source Monitor Blood Pressure Position Semi-Fowlers Blood Pressure Location Left Arm Pulse Ox 93 100 Oxygen Delivery Method Room Air Room Air Room Air 11/12/23 20:07 11/12/23 20:09 11/12/23 20:10 Temperature 98.3 F Temperature Source Oral Pulse Rate 68 Pulse Strength Normal (2+) Respiratory Rate 16 Respiratory Effort Normal Respiratory Depth Normal Respiratory Pattern Normal Blood Pressure 119/69 Blood Pressure Mean 85 Blood Pressure Source Monitor Blood Pressure Position Semi-Fowlers Blood Pressure Location Right Arm Pulse Ox 98 98 Oxygen Delivery Method Room Air Room Air 11/13/23 05:43 Temperature 97.7 F L Temperature Source Temporal Pulse Rate 80 Pulse Strength Respiratory Rate 16 Respiratory Effort Respiratory Depth Respiratory Pattern Blood Pressure 115/70 Blood Pressure Mean 85 Blood Pressure Source Monitor Blood Pressure Position Semi-Fowlers Blood Pressure Location Right Arm Pulse Ox 95 Oxygen Delivery Method Room Air Weight Weight: 142 lb 13.753 oz Body Mass Index (BMI) 26.9 Physical Exam Narrative Gomez the right hip shows tenderness over the anterior and lateral aspects. No wounds or bruises. Distal neurovascular exam is intact. Lab / Micro Data 11/13/23 05:35 11/13/23 05:35 Labs: Laboratory Results - last 24 hr 11/12/23 15:09: WBC 10.4, RBC 4.28, Hgb 12.7, Hct 39.2, MCV 91.6, MCH 29.7, MCHC 32.4, RDW Std Deviation 50.3 H, RDW Coeff of Jaclyn 14.9 H, Plt Count 191, MPV 9.9, Immature Gran % (Auto) 0.600, Neut % (Auto) 84.2 H, Lymph % (Auto) 7.1 L, [place] % (Auto) 4.8, Eos % (Auto) 2.9, Baso % (Auto) 0.4, Absolute Neuts (auto) 8.8 H, Absolute Lymphs (auto) 0.74 L, Nucleated RBC % 0, Sodium 138, Potassium 3.7, Chloride 109 H, Carbon Dioxide 25.0, Anion Gap 4 L, BUN 11, Creatinine 0.88, Estim Creat Clear Calc 47.44, Est GFR (MDRD) Af Amer 79, Est GFR (MDRD) Non-Af 66, BUN/Creatinine Ratio 12.4, Glucose 130 H, Calcium 8.9, Troponin I High Sens < 3 L 11/12/23 15:55: Urine Color Yellow, Urine Clarity Clear, Urine pH 6.0, Ur Specific [place] 1.010, Urine Protein 15 H, Urine Glucose (UA) Normal, Urine Ketones Negative, Urine Occult Blood 10 H, Urine Nitrite Negative, Urine Bilirubin Negative, Urine Urobilinogen Normal, Ur Leukocyte Esterase Negative 11/13/23 05:35: WBC 5.3, RBC 3.90 L, Hgb 11.4 L, Hct 35.8 L, MCV 91.8, MCH 29.2, MCHC 31.8 L, RDW Std Deviation 50.3 H, RDW Coeff of Jaclyn 15.0 H, Plt Count 177, MPV 11.1, Immature Gran % (Auto) 0.600, Neut % (Auto) 70.0, Lymph % (Auto) 15.2 L, [place] % (Auto) 8.9, Eos % (Auto) 4.4, Baso % (Auto) 0.9, Absolute Neuts (auto) 3.7, Absolute Lymphs (auto) 0.80 L, Nucleated RBC % 0, PT 13.7, INR 1.1, Sodium 137, Potassium 3.6, Chloride 108 H, Carbon Dioxide 23.0, Anion Gap 6, BUN 8, Creatinine 0.67, Estim Creat Clear Calc 49.96, Est GFR (MDRD) Af Amer 110, Est GFR (MDRD) Non-Af 91, BUN/Creatinine Ratio 12.0, Glucose 112 H, Calcium 8.1 L, TSH 3.44 Imaging Radiology Impression Brain CT 11/12/23 14:44 IMPRESSION: Stable chronic ischemic and atrophic changes. No acute intracranial abnormality. Electronically Signed: Mac Duran MD at 15:44 EDT , Cervical Spine CT 11/12/23 14:44 IMPRESSION: No fracture or dislocation in the cervical spine. Normal alignment. Mild degenerative change. Emphysema with biapical scarring. Electronically Signed: Mac Duran MD at 15:54 EDT , Hip/Pelvis X-Ray 11/12/23 15:30 IMPRESSION: Angulated intertrochanteric fracture of the right femur. Electronically Signed: Mac Duran MD at 16:15 EDT , Chest X-Ray 11/12/23 15:44 IMPRESSION: No acute thoracic pathology. Electronically Signed: Mac Duran MD at 16:09 EDT , Assessment & Plan Assessment/Plan (1) Closed intertrochanteric fracture of right hip: QUALIFIERS: Encounter type: initial encounter Fracture alignment: displaced Qualified Code(s): S72.141A - Displaced intertrochanteric fracture of right femur, initial encounter for closed fracture PLAN: Plan I evaluated her x-rays done in the ED last night. These show a displaced right hip intertrochanteric fracture. I explained to her the treatment options. This fractures is typically considered a surgical fracture to allow early mobility after fixation. This would reduce recumbency complications. I recommend cephalomedullary nailing with short versus long gamma nail. All risk benefits and alternatives were discussed in detail. The risks include but are not limited to infection, bleeding, hematoma formation, need for further surgery, malunion, nonunion, DVT, pulmonary embolism, cardiopulmonary event, pneumonia, atelectasis, limb length discrepancy, gait abnormalities, oscar-implant fracture, hip arthritis, persistent pain. Patient understands and agrees to proceed with surgery. Patient will undergo anesthesia clearance and surgery will be later today depending on or availability. I requested nursing to place her in Cabrera's traction. Charges/Coding Visit Charges Inpatient E&M: 72896 Init Hosp L3
[2023-11-13] MEDS: Menthol/Lanolin/Calamine/Znox 113 GM Tube 1 APPLIC TOPICAL ×2 (10:00→20:53)
[2023-11-13] MEDS: Pantoprazole Sodium 40 MG Tablet PO ×2 (10:01→20:55)
--- NOTE | 2023-11-13 10:15 | CASEMGMT ---
FRANKO IRVING Assessment: Face to Face with pt for initial transition planning/care coordination assessment. FRANKO IRVING introduced self and role at [facility], pt voices understanding and consents to assessment. Pt is A&O x4 and answers all questions appropriately at this time. Pt lying in bed in no distress with at bedside. Pt agreeable to assessment with present. Care providers, pharmacy, and demographics verified/updated. Admitting Dx: hip fx right Strata Score: 2 PCP:[facility] Specialists: ISABEL Ferguson Pharmacy: [facility] Insurance: [employer] [facility] Prescription Benefit: yes LNOK: Gustavo Noble, ; Emerita Elder, dtr Living Arrangements: Pt lives with , grandson, grandson's fiance and 2 children in a single story home with 1 step to enter through the front door with no grab bar. Pt reports she was I in ADL/IADLs prior to surgery. Pt denies concerns at home. Transportation: Pt drives self and denies concerns with transportation. Pt can transport pt until she can drive again. DME:Normally does not use AD. cleat feeder, BSC, standard walker, rollator HHC/SNF: Pt has had HHC in the past but is unsure of the name of the agency. Pt denies SNF stays. Pt to have OR today. Pt aware that therapy will work with her post surgery and will make recommendations. DC plan to be determined after this happens. Pt states no further concerns/needs. CM to follow. Advised pt to ask CM if any further question/concerns/needs arise, voices understanding. Pt Goal: Home Plan: TBD pending surgery, therapy evals and course of hospitalization Emmanuel ABDUL CM
--- NOTE | 2023-11-13 10:36 | PN_ITS ---
Subjective Subjective Patient seen and examined. She complains of pain in her hip due to the fracture. Review of systems is otherwise negative. She has remained hemodynamically stable. Objective Data Objective Data Vital Signs: Vital Signs Temp Pulse Resp BP Pulse Ox O2 Del Method 98.9 F 87 18 128/58 H 95 Room Air 11/13/23 10:22 11/13/23 10:22 11/13/23 10:22 11/13/23 10:22 11/13/23 10:22 11/13/23 10:22 Oxygen Delivery Method Room Air Weight: 142 lb 13.753 oz Body Mass Index (BMI) 26.9 Intake & Output: Intake and Output for Last 24 Hours 11/11/23 11/12/23 11/13/23 23:59 23:59 23:59 Intake Total 1225 / 1725 500 / 500 Output Total 600 / 600 Balance 625 / 1125 500 / 500 Lab / Micro Data 11/13/23 05:35 11/13/23 05:35 Labs: Laboratory Results - last 24 hr 11/12/23 15:09: WBC 10.4, RBC 4.28, Hgb 12.7, Hct 39.2, MCV 91.6, MCH 29.7, MCHC 32.4, RDW Std Deviation 50.3 H, RDW Coeff of Jaclny 14.9 H, Plt Count 191, MPV 9.9, Immature Gran % (Auto) 0.600, Neut % (Auto) 84.2 H, Lymph % (Auto) 7.1 L, [place] % (Auto) 4.8, Eos % (Auto) 2.9, Baso % (Auto) 0.4, Absolute Neuts (auto) 8.8 H, A bsolute Lymphs (auto) 0.74 L, Nucleated RBC % 0, Sodium 138, Potassium 3.7, C hloride 109 H, Carbon Dioxide 25.0, Anion Gap 4 L, BUN 11, Creatinine 0.88, Estim Creat Clear Calc 47.44, Est GFR (MDRD) Af Amer 79, Est GFR (MDRD) Non-Af 66, BUN/Creatinine Ratio 12.4, Glucose 130 H, Calcium 8.9, Troponin I High Sens < 3 L 11/12/23 15:55: Urine Color Yellow, Urine Clarity Clear, Urine pH 6.0, Ur Specific [place] 1.010, Urine Protein 15 H, Urine Glucose (UA) Normal, Urine Ketones Negative, Urine Occult Blood 10 H, Urine Nitrite Negative, Urine Bilirubin Negative, Urine Urobilinogen Normal, Ur Leukocyte Esterase Negative 11/13/23 05:35: WBC 5.3, RBC 3.90 L, Hgb 11.4 L, Hct 35.8 L, MCV 91.8, MCH 29.2, MCHC 31.8 L, RDW Std Deviation 50.3 H, RDW Coeff of Jaclyn 15.0 H, Plt Count 177, MPV 11.1, Immature Gran % (Auto) 0.600, Neut % (Auto) 70.0, Lymph % (Auto) 15.2 L, [place] % (Auto) 8.9, Eos % (Auto) 4.4, Baso % (Auto) 0.9, Absolute Neuts (auto) 3.7, Absolute Lymphs (auto) 0.80 L, Nucleated RBC % 0, PT 13.7, INR 1.1, Sodium 137, Potassium 3.6, Chloride 108 H, Carbon Dioxide 23.0, Anion Gap 6, BUN 8, Creatinine 0.67, Estim Creat Clear Calc 49.96, Est GFR (MDRD) Af Amer 110, Est GFR (MDRD) Non-Af 91, BUN/Creatinine Ratio 12.0, Glucose 112 H, Calcium 8.1 L, TSH 3.44, Blood Type O POSITIVE, Antibody Screen NEGATIVE Radiography Diagnostic Testing: Radiology Impression Brain CT 11/12/23 14:44 IMPRESSION: Stable chronic ischemic and atrophic changes. No acute intracranial abnormality. Electronically Signed: Mac Duran MD at 15:44 EDT Reading Location ID and State: [facility] / [place] Tel , Service support , Cervical Spine CT 11/12/23 14:44 IMPRESSION: No fracture or dislocation in the cervical spine. Normal alignment. Mild degenerative change. Emphysema with biapical scarring. Electronically Signed: Mac Duran MD at 15:54 EDT , Hip/Pelvis X-Ray 11/12/23 15:30 IMPRESSION: Angulated intertrochanteric fracture of the right femur. Electronically Signed: Mac Duran MD at 16:15 EDT , Chest X-Ray 11/12/23 15:44 IMPRESSION: No acute thoracic pathology. Electronically Signed: Mac Duran MD at 16:09 EDT , Physical Exam Const alert, oriented x3 and no apparent distress General Appearance: cooperative HEENT normocephalic, moist oral mucous membranes and oropharynx normal Eyes PERRL and EOMs intact bilaterally Neck no lymphadenopathy and supple Lymph Lymphatic: no lymphadenopathy noted Resp Resp Narrative: diminished breath sounds bibasally, no wheezes or crackles. On room air. Cardio regular rate, regular rhythm, S1 normal heart sound, S2 normal heart sound and no murmurs GI normal to inspection, nondistended, normoactive bowel sounds, soft to palpation, non-tender and non-distended Extremity normal capillary refill, no clubbing, cyanosis or edema and no calf tenderness Extremity Narrative: RLE mildly shortnened, not externally rotated. Has tenderness with any movement of the RLE. Skin General Skin Exam: no breakdown Neuro CN's II-XII intact bilaterally Psych thought process normal and cooperative Appearance: appropriate Assessment & Plan Assessment/Plan (1) Closed intertrochanteric fracture of right hip: QUALIFIERS: Encounter type: initial encounter Fracture alignment: displaced Qualified Code(s): S72.141A - Displaced intertrochanteric fracture of right femur, initial encounter for closed fracture (2) Closed right hip fracture: PLAN: Plan #Right hip fracture after mechanical fall * Fell from a height after she was trying to clean her ceiling fans. Imaging done showed angulated intertrochanteric fracture of the right femur * On p.o. Tylenol, p.o. oxycodone and IV morphine as needed for pain. * Orthopedic surgery on board. * PT OT on board. For surgery today. #Hypothyroidism: On Synthroid and liothyronine. Will clarify if patient is actually supposed to be on both. #GERD: On PPI #Depression and anxiety: On Wellbutrin and mirtazapine as well as sertraline. #COPD: Not in exacerbation. Breathing treatments with bronchodilators. DVT prophylaxis: SCDs. Start anticoagulation after surgery. Disposition: Will likely benefit from placement. Charges/Coding Visit Charges Inpatient E&M: 61935 Subs Hosp L2
[2023-11-13] MEDS: Ondansetron 4 MG/2 ML Vial IV (11:42)
--- NOTE | 2023-11-13 12:08 | CHAPLAIN ---
Type of Pastoral Visit _x__ Initial Visit ___ Follow-up Visit ___ On-call Visit ___ General Patient Visit ___ Spiritual Assessment ___ Family Conference ___ Bereavement ___ Rapid Response ___ Code Blue ___ Other (describe below) Pastoral Care Referral From ___ Patient _x__ Family ___ Nurse ___ Physician ___ Food Service Cashier ___ Accredited Legal Secretary ___ Other (describe below) Sacrament/Intervention _x__ Active listening ___ Anointing ___ Temple ___ Bereavement ___ Communion ___ Patricia exploration ___ _x__ Life review _x__ Prayer ___ Reconciliation ___ Sacrament of Sick ___ Supportive presence ___ Wedding ___ Other (describe below) Pastoral Comments patient is to have surgery soon for a broken hip; spouse or SO is with her in the room and he is very talkative; pt needs a blanket and call button is used to ask for one from [employer]OX [employer] PERSON; some life review given by spouse; request for prayer concerning surgery; supportive presence given to patient
--- NOTE | 2023-11-13 13:30 | NURSING ---
Pt taken to surgery.
--- NOTE | 2023-11-13 13:38 | PRE.ANES_ITS ---
ASA Classification* ASA Classification ASA Classification: 3 and E Assessment & Plan Anesthesia* Anesthesia Assessment Anesthesia Assessment: Discussed sedation and/or anesthesia options, risks, benefits, and alternatives with patient/parents/legal guardian/POA. Questions invited. The patient/parents/legal guardian/POA seems to understand and agrees to proceed with anesthesia plan. Reviewed the physical assessment, medical history, allergy history and patient home medications list prior to surgery/procedure/anesthetic and documented any changes. Performed airway and anesthesia risk assessments. Anesthesia Type Anesthesia Type: General (*see written pre anesthesia record for full assessment) Anesthesia Focused Assessment* Temperature: 98.9 F Pulse Rate: 87 Blood Pressure: 128/58 Respiratory Rate: 18 Pulse Ox: 95 Airway Assessment Mouth opens: >3 cm Mallampati Score: II Focused Labs Anesthesia Preop lab: CBC WBC 5.3 K/mm3 (4.4-11.0) 11/13/23 05:35 RBC 3.90 M/mm3 (4.2-5.4) L 11/13/23 05:35 Hgb 11.4 g/dL (12.0-15.0) L 11/13/23 05:35 Hct 35.8 % (37-47) L 11/13/23 05:35 Plt Count 177 K/mm3 (150-450) 11/13/23 05:35 CHEMISTRY Potassium 3.6 mmol/L (3.5-5.1) 11/13/23 05:35 Sodium 137 mmol/L (136-145) 11/13/23 05:35 Magnesium 2.4 mg/dL (1.6-2.6) 11/22/20 06:48 BUN 8 mg/dL (7-18) 11/13/23 05:35 Creatinine 0.67 mg/dL (0.55-1.02) 11/13/23 05:35 Glucose 112 mg/dL (74-106) H 11/13/23 05:35 TSH 3.44 uIU/mL (0.358-3.74) 11/13/23 05:35 COAG PT 13.7 SECONDS (11.7-14.9) 11/13/23 05:35 Pre-Assessment Diagnosis/Proposed Procedure Planned Operative Procedure(s): HIP ORIF Anesthesia History Anesthesia History - liquor tester: Anesthesia History - liquor tester Hx Hospitalization No 07/28/23 09:49 Any Problems With Anesthesia Yes: nausea 11/12/23 17:32 Cholinesterase deficiency No 11/12/23 17:32 You/Your Family Experience No 11/12/23 17:32 fever (hyperthermia) with Relationship Recent Exposure to Contagious No 11/12/23 17:32 Disease Does patient have nerve No 11/12/23 17:32 stimulator Patient instructed to have No 11/12/23 17:32 device shut off --Does patient have Pacemaker No 11/13/23 10:22 or ICD? When Was Last Pacemaker Check QUESTION #4 FULL TEXT: You/Your Family Experience fever (hyperthermia) with Anesthesia Last Oral Intake Last Oral intake: Last Oral Intake NPO since 00:00 11/13/23 10:22 Meds taken in AM with sips of Yes 11/13/23 10:22 water? Meds patient instructed to Protonix 11/13/23 10:22 take am of surgery PONV PONV - liquor tester: PONV - liquor tester Female HX of Motion Sickness HX of N/V After Surgery Non-Smoker Duration of Surgery greater than 60 minutes Number of Risk Factors PONV Score Height & Weight Height & Weight: Anesthesia: Height & Weight Height 5 ft 1 in 11/13/23 10:22 Weight: 64.8 kg 11/13/23 10:22 Body Mass Index (BMI) 26.9 11/13/23 10:22 Respiratory Assessment Respiratory Assessment - liquor tester: Respiratory Tract Infection Hx - liquor tester Hx Respiratory Tract Infection No 11/12/23 17:32 STOP Sleep Apnea STOP Sleep Apnea - liquor tester: STOP Sleep Apnea - liquor tester Hx Hypertension Yes 11/13/23 10:39 Hx Sleep Apnea No 11/12/23 17:32 CPAP No 07/31/23 09:07 BIPAP No 01/20/19 11:55 Do you snore loudly (louder No 11/12/23 17:32 than talking or can be heard Do you often feel tired/ No 11/12/23 17:32 fatigued/ sleepy during daytime? Has anyone observed you stop No 11/12/23 17:32 breathing during sleep? STOP Results Negative 11/12/23 17:32 QUESTION #5 FULL TEXT : Do you snore loudly (louder than talking or can be heard through closed doors)? 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 Specify any problems Hx of Preganancy in last 3 N/A 11/12/23 17:32 Months Nurse Filling Out Transfusion LDOTTERER 11/12/23 17:32 & Questions: Date: 11/12/23 11/12/23 17:32 Time: 18:10 11/12/23 17:32 Patient unable to answer at this time (ie. confused, unrespo /Reproduction History /Reproductive History - liquor tester: /Reproductive Hx- liquor tester Hx Now No 11/12/23 17:32 Gestational Age (in weeks): EDC: Hx Hx Para Hx Section SAB No 11/12/23 17:32 Active Medications Active Medications: Current Medications Generic Name Dose Route Start Last Admin Trade Name Freq PRN Reason Stop Dose Admin Acetaminophen 1,000 mg 11/12/23 22:00 11/13/23 05:51 Acetaminophen 500 Mg Tablet PO Not Given Q8 RIRI Albuterol Sulfate 2.5 mg 11/12/23 17:16 Albuterol 2.5 Mg/3 Ml Vial.Neb. INHALATION Q2H PRN PRN SOB &/OR WHEEZING Bupropion HCl 150 mg 11/13/23 10:00 11/13/23 10:17 Bupropion (Sr) 150 Mg Tablet.Sa PO Not Given DAILY RIRI Calamine/Phenol 1 applic 11/12/23 22:00 11/13/23 10:00 Menthol/Lanolin/Calamine/Znox 113 Gm Tube TOPICAL 1 applic BID RIRI Administration Protocol Levothyroxine Sodium 100 mcg 11/13/23 06:00 11/13/23 05:51 Levothyroxine 100 Mcg Tablet PO Not Given DAILY@0600 [facility] Liothyronine Sodium 5 mcg 11/13/23 06:00 11/13/23 05:51 Liothyronine 5 Mcg Tablet PO Not Given DAILY@0600 [facility] Melatonin 3 mg 11/12/23 17:16 11/12/23 22:50 Melatonin 3 Mg Tablet PO 3 mg QHS PRN PRN Administration INSOMNIA Meloxicam 15 mg 11/13/23 10:00 11/13/23 10:17 Meloxicam 15 Mg Tablet PO Not Given DAILY [facility] Mirtazapine 45 mg 11/12/23 22:00 11/12/23 20:19 Mirtazapine 15 Mg Tablet PO 45 mg QHS [facility] Administration Morphine Sulfate 2 - 4 mg 11/12/23 17:16 11/13/23 09:59 Morphine 2 Mg/Ml Syringe IV 2 mg Q3H PRN PRN Administration Pain Score 6-10 Ondansetron HCl 4 mg 11/12/23 17:16 11/13/23 11:42 Ondansetron 4 Mg/2 Ml Vial IV 4 mg Q8H PRN PRN Administration NAUSEA/VOMITING Oxycodone HCl 5 mg 11/12/23 17:16 Oxycodone 5 Mg Tablet PO Q4H PRN PRN Pain Score 4-10 Pantoprazole Sodium 40 mg 11/12/23 22:00 11/13/23 10:01 Pantoprazole Sodium 40 Mg Tablet PO 40 mg BID [facility] Administration Pravastatin Sodium 10 mg 11/12/23 22:00 11/12/23 20:20 Pravastatin 20 Mg Tablet PO 10 mg QHS [facility] Administration Prochlorperazine Edisylate 5 mg 11/12/23 19:09 11/12/23 22:49 Prochlorperazine 10 Mg/2 Ml Vial IV 5 mg Q4H PRN PRN Administration Breakthrough nausea/vomiting Senna/Docusate Sodium 2 tablet 11/12/23 17:16 Senna/Docusate Sodium 1 Tablet PO BID PRN PRN Constipation Sertraline HCl 150 mg 11/13/23 10:00 11/13/23 10:17 Sertraline 100 Mg Tablet PO Not Given DAILY [facility] Sodium Chloride 10 - 40 ml 11/12/23 18:12 0.9% Saline Lock 10 Ml Syringe IV UD PRN SALINE FLUSH PFSH Medical History Venous (peripheral) insufficiency Tobacco abuse Puncture wound of left leg excluding thigh Wears hearing aid Loss of hearing Wears dentures Open wound Cat bite of left lower leg Smoking hx COPD (chronic obstructive pulmonary disease) Back problem Diarrhea GERD (gastroesophageal reflux disease) Depression with anxiety Arthritis History of back problems History of colon cancer History of thyroid cancer Home Medications ?Medication ?Instructions ?Recorded ?Last Taken ?Type lorazepam 1 mg tablet 1 mg PO QHS sleep 06/11/13 06/11/13 History 1 mg omeprazole 20 mg capsule,delayed 40 mg PO BID GERD 06/11/13 07/31/23 06:30 History release meloxicam 15 mg tablet 15 mg PO DAILY arthritis/pain 06/12/13 06/12/13 History 15 mg cholecalciferol (vitamin D3) 1,250 50,000 units PO QWEEK supple 01/24/19 Unknown History mcg (50,000 unit) capsule pravastatin 10 mg tablet 10 mg PO QHS cholesterol 01/24/19 Unknown History liothyronine 5 mcg tablet 5 mcg PO DAILY hypothyroid 07/09/23 Unknown History sertraline 100 mg tablet 150 mg PO DAILY depression 07/09/23 Unknown History levothyroxine 100 mcg tablet 100 mcg PO DAILY hypothyroid 07/28/23 07/31/23 06:30 History mirtazapine 45 mg tablet 45 mg PO QHS depression/anxiety 07/28/23 Unknown History bupropion HCl 150 mg tablet,12 hr 150 mg PO DAILY depression/anxiety 11/12/23 Unknown History sustained-release Allergy/AdvReac Type Severity Reaction Status Date / Time Sulfa (Sulfonamide Allergy Rash Verified 11/12/23 14:15 Antibiotics) Family History Father Colon cancer Mother Heart disease Osteoporosis Surgical History History of partial thyroidectomy History of colectomy History of hysterectomy Social History Smoking Status: Current every day smoker tobacco type: cigarettes alcohol intake: never substance use type: does not use Review of Systems (Anesthesia) ROS Narrative System reviewed and no additional complaints, except as documented.
--- NOTE | 2023-11-13 14:45 | RAD_ITS ---
EXAM: XR RIGHT HIP WITH PELVIS WHEN PERFORMED, 1 VIEW CLINICAL INDICATION: ORIF TECHNIQUE: Frontal view of the right hip with pelvis when performed. COMPARISON: No relevant prior studies available. FINDINGS: BONES/JOINTS: Intraoperative images were obtained show placement of an orthopedic pin and screw across a femoral neck fracture. No destructive or sclerotic lesions. Note that overlapping bowel shadows may however obscure fine detail. Sacroiliac joint is unremarkable. No widening of the pubic symphysis. The articular structures are unremarkable. SOFT TISSUES: Unremarkable. No soft tissue swelling or gas. RAD/Hip 1 view with Pelvis IMPRESSION: ORIF right hip fracture. Electronically Signed: Antonio Leon MD at 21:38 EDT ,
[2023-11-13] MEDS: Cefazolin 2 GM in 0.9% Normal Saline (100mL Bag) 100 ML IV (14:50)
--- NOTE | 2023-11-13 16:21 | PCM.OPRPT ---
Report of Operation Date of Procedure: 11/13/23 Description of Surgical Findings:: Operative Report Pre-operative Diagnosis: Right intertrochanteric Femur Fracture Post-operative Diagnosis: Right intertrochanteric Femur Fracture Procedure(s) Performed: Right femur Cephalmedullary Nailing CPT 04945 Surgeon: Dr. Reginaldo Cool MD Engineering Illustrator: None Estimated Blood Loss: 50 ml Anesthesia: General Drains: None Specimens: None Implants: Alex Gamma3 Trochanteric Nail 180 mm, 11 mm diameter, 125 degree Complications: None Condition: stable Indications: 78-year-old lady who had a ground-level fall and sustained a right intertrochanteric femur Fracture. We discussed the benefits and risks of the procedure including but not limited toinfection, bleeding, injury to nerves and vessels, limb length discrepancy, nonunion, malunion, hardware failure, oscar-implant fracture, hip and knee stiffness, persistent pain, difficulty to ambulate, DVT, pulmonary embolism, cardiopulmonary event, need for further surgeries. The patient concurred with the proposed plan, giving informed consent. Procedure Details: The patient was seen in the pre-operative preparation area. The site of surgery was verbally confirmed and marked by the surgical team. The patient was properly identified by the unique identifiers and was then at that time transported to the operative theater by [facility]. A Time Out was held and the above information confirmed. Both lower extremities were placed on the fracture table with the contralateral extremity extended down to allow C-arm to come in. Close reduction maneuver was applied and AP and lateral x-rays were taken. Reduction was acceptable. Operative area was prepped and draped in a sterile fashion. Final timeout was performed. With the help of C-arm incision was marked. A 4 cm Incision was made proximal to the greater trochanter. An appropriate greater trochanter starting point was found using the starting wire under fluoroscopy. The wire was then drilled to the metadiaphyseal region of the femur. The opening reamer was then drilled into the metadiaphysis under fluoro. Short 180 mm Gamma Nail was then placed into the intramedullary canal of the femur and placement was verified with fluoroscopy and advanced to an appropriate level to allow placement of the lag screw. Guidewire was removed. We then drilled the wire for the lag screw up the neck of the femur under fluoroscopic guidance. AP and lateral x-rays showed good positioning of the wire through the neck into the head with good tip apex distance. The wire was then measured. Cannulated drill was used to drill a channel for the lag screw and a 90 mm lag screw was placed up the neck of the femur. A distal static interlocking screw 35 mm was placed with the help of short gamma jig. Final fluorscopic images were then taken and the placement of the intramedullary device and fracture was deemed appropriate. The wounds were irrigated copiously with sterile solution. The deep fascia was closed with 0 vicryl suture. The deep dermal layer was closed with 2-0 vicryl suture. Lc were used to close the skin. Aquacel dressing was used, the incisions. The patient was then awaken, extubated and taken to the PACU. I was present and scrubbed for the entire procedure. Postoperative plan: Patient will be WBAT. Recommend PT/OT evaluation Pain Control F/u Outpatient in 2 weeks Surgeon: Reginaldo Cool Admit VTE Documentation VTE Mechan Device Prophylaxis: SCD's Procedures Musculoskeletal [id number]: Other Procedure See Report
--- NOTE | 2023-11-13 16:35 | PCM.POST.ANE ---
Anesthesia: Postop Eval I Current Vital Signs Temperature: 97.4 F Pulse Rate: 84 Blood Pressure: 123/75 Respiratory Rate: 14 Pulse Ox: 94 Assessment Airway patent: Yes Spontaneous unlabored respirations: Yes nausea: No Vomiting: No Anesthesia Complication: No Fluid Hydration Crystalloid volume administer (ml): 1 Total IV fluid infused: 1 Progress Note Anesthesia document: Postop Eval 1 completed: Yes
--- NOTE | 2023-11-13 16:37 | PCM.POSTANE2 ---
Anesthesia Postop Eval I Sum Postop Eval Completion status Anesthesia document: Postop Eval 1 completed: Yes Anesthesia Postop Eval I Summary Anesthesia Postop Eval I Summary: Anesthesia Postop Eval I: Assessment Summary Airway patent Yes 11/13/23 16:35 Spontaneous unlabored Yes 11/13/23 16:35 respirations Mental status nausea No 11/13/23 16:35 Vomiting No 11/13/23 16:35 Anesthesia Postop Eval I: Fluid Summary Crystalloid volume administer 1 11/13/23 16:35 (ml) Colloids volume administered ( ml) Blood Product volume administered (ml) Total IV fluid infused 1 11/13/23 16:35 Anesthesia Postop Eval I: Summary Notes Anesthesia Complication No 11/13/23 16:35 Anesthesia Complication Comment: Post-operative progress note Anesthesia: Postop Eval II Evaluation Mental status: Awake Pain Level: 0 nausea: No Vomiting: No
[2023-11-13] MEDS: Lactated Ringers 1,000 ML 15 ML IV (16:58)
[2023-11-13] MEDS: Ketorolac 15 MG/ML Vial IV (17:06)
[2023-11-13] MEDS: proCHLORPERazine 10 MG/2 ML Vial 5 MG IV (18:20)
[2023-11-13] MEDS: Calcium Carbonate 500 MG Tablet PO (18:27)
[2023-11-13] MEDS: Mirtazapine 15 MG Tablet 45 MG PO (20:54)
[2023-11-13] MEDS: Acetaminophen 500 MG Tablet 1000 MG PO (20:55)
[2023-11-13] MEDS: Pravastatin 20 MG Tablet 10 MG PO (20:56)
[2023-11-13] MEDS: oxyCODONE 5 MG Tablet PO (20:57)
[2023-11-14] VITALS (7 sets, daily range): BP systolic 89–123; BP diastolic 55–63; PULSE 78–103; RESP 16–18; TEMP 36.6–37.1; O2SAT 93–97
[2023-11-14 06:31] LABS: Absolute Lymphocyte Count 1.06 X10^3/uL (0.83-4.51); Absolute Neutrophil Count 5.2 X10^3/uL (2.0-7.7); Basophil# 0.03 X10^3/uL; Basophil% 0.4 % (0-1); Eosinophil# 0.14 X10^3/uL; Hematocrit 33.1 % (37-47); Hemoglobin 10.6 g/dL (12.0-15.0); Lymphocyte # 1.06 X10^3/ul (0.83-4.51); Mean Corpuscular Hgb 29.7 pg (27.0-32.0); Mean Corpuscular Volume 92.7 fL (81-99); Mean Platelet Vol. 11.4 fl (6.2-12.0); Monocyte# 0.64 X10^3/uL; NRBC Flagged by Analyzer 0 % (0-5); Neutrophil # 5.16 X10^3/uL (2.7-7.7); Neutrophil % 72.9 % (47-70); Platelet Count 158 K/mm3 (150-450); RBC Distribution Width CV 14.9 % (11.6-14.6); RBC Distribution Width SD 50.5 fl (35.1-43.9); Red Blood Count 3.57 M/mm3 (4.2-5.4); White Blood Count 7.1 K/mm3 (4.4-11.0)
[2023-11-14 06:43] LABS: Anion Gap 6 (5-15); BUN 10 mg/dL (7-18); BUN/Creat Ratio 14.9 RATIO (10-20); Calcium,Total 8.4 mg/dL (8.5-10.1); Chloride 104 mmol/L (98-107); Creatinine, Serum 0.67 mg/dL (0.55-1.02); EST Glomerular Filtration Rate 90 mL/min (>60); Est Glom Filt Rate - Afr Amer 109 mL/min (>60); Estimated Creatinine Clearance 49.96 ml/min; Glucose 91 mg/dL (74-106); Potassium 3.6 mmol/L (3.5-5.1); Sodium Level 134 mmol/L (136-145)
[2023-11-14] MEDS: Levothyroxine 100 MCG Tablet PO (07:54)
[2023-11-14] MEDS: Acetaminophen 500 MG Tablet 1000 MG PO ×3 (07:54→21:50)
[2023-11-14] MEDS: Liothyronine 5 MCG Tablet PO (07:55)
[2023-11-14] MEDS: Calcium Carbonate 500 MG Tablet PO ×2 (07:55→17:55)
[2023-11-14] MEDS: oxyCODONE 5 MG Tablet PO (08:33)
[2023-11-14] MEDS: Sertraline 100 MG Tablet 150 MG PO (09:20)
[2023-11-14] MEDS: Pantoprazole Sodium 40 MG Tablet PO ×2 (09:20→21:51)
[2023-11-14] MEDS: Cholecalciferol (VIT D3) 25 MCG TABLET (1,000 UNITS) 50 MCG PO (09:20)
[2023-11-14] MEDS: Menthol/Lanolin/Calamine/Znox 113 GM Tube 1 APPLIC TOPICAL ×2 (09:20→21:52)
[2023-11-14] MEDS: buPROPion (SR) 150 MG Tablet.SA PO (09:20)
[2023-11-14] MEDS: Ondansetron 4 MG/2 ML Vial IV (10:50)
[2023-11-14] MEDS: Ketorolac 15 MG/ML Vial IV ×2 (10:51→17:56)
--- NOTE | 2023-11-14 12:06 | NURSING ---
off unit for procedure
--- NOTE | 2023-11-14 12:56 | PN_ITS ---
Subjective Subjective Patient seen and examined. She complains of a bit of pain in her hip at the surgical site and is because she was just moved from her bed to the chair. She has no other complaints and review of symptoms otherwise negative. Blood pressure is running a bit low today at 97/59. Objective Data Objective Data Vital Signs: Vital Signs Temp Pulse Resp BP Pulse Ox O2 Del Method O2 Flow Rate 98.0 F 94 18 97/59 L 93 Room Air 1.5 11/14/23 10:59 11/14/23 10:59 11/14/23 10:59 11/14/23 10:59 11/14/23 10:59 11/14/23 10:59 11/14/23 07:59 Oxygen Flow Rate (L/min) 1.5 Oxygen Delivery Method Room Air Weight: 142 lb 13.753 oz Body Mass Index (BMI) 26.9 Intake & Output: Intake and Output for Last 24 Hours 11/12/23 11/13/23 11/14/23 23:59 23:59 23:59 Intake Total 1225 / 1725 1730 / 1730 650 / 650 Output Total 600 / 600 1500 / 1500 450 / 450 Balance 625 / 1125 230 / 230 200 / 200 Lab / Micro Data 11/14/23 05:26 11/14/23 05:26 Labs: Laboratory Results - last 24 hr 11/14/23 05:26: WBC 7.1, RBC 3.57 L, Hgb 10.6 L, Hct 33.1 L, MCV 92.7, MCH 29.7, MCHC 32.0, RDW Std Deviation 50.5 H, RDW Coeff of Jaclyn 14.9 H, Plt Count 158, MPV 11.4, Immature Gran % (Auto) 0.700, Neut % (Auto) 72.9 H, Lymph % (Auto) 15.0 L, [place] % (Auto) 9.0, Eos % (Auto) 2.0, Baso % (Auto) 0.4, Absolute Neuts (auto) 5.2, Absolute Lymphs (auto) 1.06, Nucleated RBC % 0, Sodium 134 L, Potassium 3.6, Chloride 104, Carbon Dioxide 24.0, Anion Gap 6, BUN 10, Creatinine 0.67, Estim Creat Clear Calc 49.96, Est GFR (MDRD) Af Amer 109, Est GFR (MDRD) Non-Af 90, BUN/Creatinine Ratio 14.9, Glucose 91, Calcium 8.4 L Radiography Diagnostic Testing: Radiology Impression Hip/Pelvis X-Ray 11/13/23 14:45 IMPRESSION: ORIF right hip fracture. Electronically Signed: Antonio Leon MD at 21:38 EDT Reading Location ID and State: [facility] / [place] Tel , Service support , Physical Exam Const alert, oriented x3 and no apparent distress General Appearance: cooperative HEENT normocephalic, moist oral mucous membranes and oropharynx normal Eyes PERRL and EOMs intact bilaterally Neck no lymphadenopathy and supple Lymph Lymphatic: no lymphadenopathy noted Resp Resp Narrative: diminished breath sounds bibasally, no wheezes or crackles. On room air. Cardio regular rate, regular rhythm, S1 normal heart sound, S2 normal heart sound and no murmurs GI normal to inspection, nondistended, normoactive bowel sounds, soft to palpation, non-tender and non-distended Extremity normal capillary refill, no clubbing, cyanosis or edema and no calf tenderness Extremity Narrative: intact dressing over right hip. Skin General Skin Exam: no breakdown Neuro CN's II-XII intact bilaterally Motor Exam: general weakness Psych thought process normal and cooperative Appearance: appropriate Assessment & Plan Assessment/Plan (1) Closed intertrochanteric fracture of right hip: QUALIFIERS: Encounter type: initial encounter Fracture alignment: displaced Qualified Code(s): S72.141A - Displaced intertrochanteric fracture of right femur, initial encounter for closed fracture (2) Closed right hip fracture: PLAN: Plan #Right hip fracture after mechanical fall * Fell from a height after she was trying to clean her ceiling fans. Imaging done showed angulated intertrochanteric fracture of the right femur * On p.o. Tylenol, p.o. oxycodone and IV morphine as needed for pain. * Orthopedic surgery on board. * PT OT on board. * s/p right cephalomedullary nailing. Today is POD 1 #Hypothyroidism: On Synthroid and liothyronine. Will clarify if patient is actually supposed to be on both. #GERD: On PPI #Depression and anxiety: On Wellbutrin and mirtazapine as well as sertraline. #COPD: Not in exacerbation. Breathing treatments with bronchodilators. DVT prophylaxis: on arelto per orthopedics. Disposition: awaiting placement. case management on board to help facilitate placement Disposition: Will likely benefit from placement. Charges/Coding Visit Charges Inpatient E&M: 18509 Subs Hosp L2
--- NOTE | 2023-11-14 13:41 | PCM.PN.ORT ---
Subjective Subjective Postop day 1 status post right hip short gamma nailing. Patient sitting comfortably in bed. Pain well-controlled. Was able to stand and take a few steps to the chair with PT this morning with a walker. Complains of ongoing nausea which is getting better with time. Objective Data Objective Data Vital Signs: Vital Signs Temp Pulse Resp BP Pulse Ox O2 Del Method O2 Flow Rate 98.0 F 94 18 97/59 L 93 Room Air 1.5 11/14/23 10:59 11/14/23 10:59 11/14/23 10:59 11/14/23 10:59 11/14/23 10:59 11/14/23 10:59 11/14/23 07:59 Oxygen Flow Rate (L/min) 1.5 Oxygen Delivery Method Room Air Weight: 142 lb 13.753 oz Body Mass Index (BMI) 26.9 Intake & Output: Intake and Output for Last 24 Hours 11/12/23 11/13/23 11/14/23 23:59 23:59 23:59 Intake Total 1225 / 1725 1730 / 1730 650 / 650 Output Total 600 / 600 1500 / 1500 450 / 450 Balance 625 / 1125 230 / 230 200 / 200 Lab / Micro Data 11/14/23 05:26 11/14/23 05:26 Labs: Laboratory Results - last 24 hr 11/14/23 05:26: WBC 7.1, RBC 3.57 L, Hgb 10.6 L, Hct 33.1 L, MCV 92.7, MCH 29.7, MCHC 32.0, RDW Std Deviation 50.5 H, RDW Coeff of Jaclyn 14.9 H, Plt Count 158, MPV 11.4, Immature Gran % (Auto) 0.700, Neut % (Auto) 72.9 H, Lymph % (Auto) 15.0 L, [place] % (Auto) 9.0, Eos % (Auto) 2.0, Baso % (Auto) 0.4, Absolute Neuts (auto) 5.2, Absolute Lymphs (auto) 1.06, Nucleated RBC % 0, Sodium 134 L, Potassium 3.6, Chloride 104, Carbon Dioxide 24.0, Anion Gap 6, BUN 10, Creatinine 0.67, Estim Creat Clear Calc 49.96, Est GFR (MDRD) Af Amer 109, Est GFR (MDRD) Non-Af 90, BUN/Creatinine Ratio 14.9, Glucose 91, Calcium 8.4 L Radiography Diagnostic Testing: Radiology Impression Hip/Pelvis X-Ray 11/13/23 14:45 IMPRESSION: ORIF right hip fracture. Electronically Signed: Antonio Leon MD at 21:38 EDT Reading Location ID and State: [facility] / [place] Tel , Service support , Physical Exam Narrative Dressing CDI except for slight sanguinous staining. Distal neurovascular exam is intact Assessment & Plan Assessment/Plan (1) Closed intertrochanteric fracture of right hip: QUALIFIERS: Encounter type: initial encounter Fracture alignment: displaced Qualified Code(s): S72.141A - Displaced intertrochanteric fracture of right femur, initial encounter for closed fracture PLAN: Plan Postop day 1 status post right hip short gamma nailing. Patient doing well. Working with PT. Likely will require rehab. Okay to remove [place] from orthopedic perspective. Minimize opioids if causing nausea. Follow-up in orthopedic clinic in 2 weeks for staple removal.
--- NOTE | 2023-11-14 13:44 | CASEMGMT ---
Social Work SW spoke w/pt, pt's and sisters in room in regard to discharge plan. Pt is agreeable that going to SNF would be beneficial. SW provided to pt a list from [facility] of longterm facilities in network w/insurance, in preferred geographic area, and complete w/quality and resource use data. Pt would like referrals sent to 1. [facility]. [facility] and 3. [facility]. SW explained will make referrals and follow up Thursday, let them know that once we have an accepting facility will need a precert from insurance. Pt and family state understanding. SW will follow up w/referrals. SLIM Mcguire
--- NOTE | 2023-11-14 16:29 | CASEMGMT ---
Social Work Referral sent to [facility] and [facility]. SW will follow up on Thursday. SLIM Mcguire
[2023-11-14] MEDS: Rivaroxaban 10 MG Tablet PO (17:56)
[2023-11-14] MEDS: 0.9% Saline Lock 10 ML Syringe IV (17:57)
[2023-11-14] MEDS: Pravastatin 20 MG Tablet 10 MG PO (21:49)
[2023-11-14] MEDS: Mirtazapine 15 MG Tablet 45 MG PO (21:50)
[2023-11-15] MEDS: oxyCODONE 5 MG Tablet PO ×3 (00:10→21:23)
[2023-11-15 03:00] VITALS: BP 111/58; PULSE 92; RESP 16; TEMP 36.8; O2SAT 93
[2023-11-15] MEDS: Acetaminophen 500 MG Tablet 1000 MG PO ×3 (06:05→21:08)
[2023-11-15] MEDS: Liothyronine 5 MCG Tablet PO (06:05)
[2023-11-15] MEDS: Levothyroxine 100 MCG Tablet PO (06:05)
[2023-11-15 06:53] LABS: Absolute Lymphocyte Count 1.26 X10^3/uL (0.83-4.51); Absolute Neutrophil Count 4.8 X10^3/uL (2.0-7.7); Basophil# 0.06 X10^3/uL; Basophil% 0.9 % (0-1); Eosinophil# 0.17 X10^3/uL; Eosinophils% 2.5 % (0-5); Hematocrit 30.4 % (37-47); Hemoglobin 9.8 g/dL (12.0-15.0); Lymphocyte # 1.26 X10^3/ul (0.83-4.51); Lymphocyte % 18.2 % (19-41); Mean Corp Hgb Conc 32.2 g/dL (32-36); Mean Corpuscular Hgb 29.3 pg (27.0-32.0); Mean Platelet Vol. 10.7 fl (6.2-12.0); Monocyte# 0.57 X10^3/uL; Monocyte% 8.2 % (0-10); NRBC Flagged by Analyzer 0 % (0-5); Neutrophil # 4.81 X10^3/uL (2.7-7.7); Neutrophil % 69.6 % (47-70); Platelet Count 177 K/mm3 (150-450); RBC Distribution Width CV 14.8 % (11.6-14.6); RBC Distribution Width SD 49.4 fl (35.1-43.9); Red Blood Count 3.34 M/mm3 (4.2-5.4); White Blood Count 6.9 K/mm3 (4.4-11.0)
[2023-11-15 07:11] LABS: Anion Gap 6 (5-15); BUN 13 mg/dL (7-18); BUN/Creat Ratio 16.8 RATIO (10-20); Calcium,Total 8.5 mg/dL (8.5-10.1); Chloride 106 mmol/L (98-107); Creatinine, Serum 0.78 mg/dL (0.55-1.02); EST Glomerular Filtration Rate 76 mL/min (>60); Est Glom Filt Rate - Afr Amer 92 mL/min (>60); Estimated Creatinine Clearance 49.96 ml/min; Glucose 96 mg/dL (74-106); Potassium 3.7 mmol/L (3.5-5.1); Sodium Level 136 mmol/L (136-145)
[2023-11-15 08:35] VITALS: BP 99/57; PULSE 93; RESP 18; TEMP 36.5; O2SAT 95
[2023-11-15] MEDS: Ondansetron 4 MG/2 ML Vial IV (08:40)
[2023-11-15] MEDS: 0.9% Saline Lock 10 ML Syringe IV ×2 (08:41→11:58)
[2023-11-15] MEDS: Calcium Carbonate 500 MG Tablet PO ×3 (08:48→18:09)
--- NOTE | 2023-11-15 10:13 | PCM.PN.HOSP ---
Reason for Visit Reason for Visit: Diagnoses Hypothyroidism, unspecified (11/12/23) Fracture of unspecified part of neck of right femur, initial encounter for closed fracture (11/12/23) Displaced intertrochanteric fracture of right femur, initial encounter for closed fracture (11/12/23) Tobacco use (11/12/23) Personal history of other malignant neoplasm of large intestine (11/12/23) Personal history of other mental and behavioral disorders (11/12/23) Personal history of other diseases of the respiratory system (11/12/23) Personal history of other diseases of the digestive system (11/12/23) Objective Data Objective Data Vital Signs: Vital Signs Temp Pulse Resp BP Pulse Ox O2 Del Method O2 Flow Rate 97.7 F L 93 18 99/57 L 95 Room Air 1.5 11/15/23 08:35 11/15/23 08:35 11/15/23 08:35 11/15/23 08:35 11/15/23 08:35 11/15/23 08:56 11/14/23 07:59 Oxygen Flow Rate (L/min) 1.5 Oxygen Delivery Method Room Air Weight: 142 lb 13.753 oz Body Mass Index (BMI) 26.9 Intake & Output: Intake and Output for Last 24 Hours 11/13/23 11/14/23 11/15/23 23:59 23:59 23:59 Intake Total 1730 / 1730 1050 / 1300 400 / 400 Output Total 1500 / 1500 450 / 450 Balance 230 / 230 600 / 850 400 / 400 Lab / Micro Data 11/15/23 06:20 11/15/23 06:20 Labs: Laboratory Results - last 24 hr 11/15/23 06:20: WBC 6.9, RBC 3.34 L, Hgb 9.8 L, Hct 30.4 L, MCV 91.0, MCH 29.3, MCHC 32.2, RDW Std Deviation 49.4 H, RDW Coeff of Jaclyn 14.8 H, Plt Count 177, MPV 10.7, Immature Gran % (Auto) 0.600, Neut % (Auto) 69.6, Lymph % (Auto) 18.2 L, [place] % (Auto) 8.2, Eos % (Auto) 2.5, Baso % (Auto) 0.9, Absolute Neuts (auto) 4.8, Absolute Lymphs (auto) 1.26, Nucleated RBC % 0, Sodium 136, Potassium 3.7, Chloride 106, Carbon Dioxide 24.0, Anion Gap 6, BUN 13, Creatinine 0.78, Estim Creat Clear Calc 49.96, Est GFR (MDRD) Af Amer 92, Est GFR (MDRD) Non-Af 76, BUN/Creatinine Ratio 16.8, Glucose 96, Calcium 8.5 Physical Exam Narrative Seen and examined. Has not moved bowels since surgery. No fever. Physical exam General: Alert, Oriented x3, Cooperative HEENT: Atraumatic, PERRLA, EOMI, Normocephalic Oral: No Gingival or Mucosal Lesions/ Ulcerations Neck: Supple, No JVD, Negative Carotid Bruits Chest wall/Lungs: Air entry diminished in bilateral lung bases. No crepitation/rhonchi Cardiovascular: Regular rate, Regular Rhythm, Normal S1, Normal S2, soft systolic murmur over right second ICS. Abdomen: Bowel Sounds Present, Soft, Non Tender, Non-Distended : No dysuria. No renal angle tenderness. No suprapubic tenderness. Extremities: No edema, Capillary Refill Less than 3 Seconds Skin: Blood stain over the right hip surgical dressing. No hematoma or surrounding bruise. Musculoskeletal: Mild tenderness around surgical right hip. No Tenderness to Palpation of other joints or Extremities Neurological: Cranial nerves II-XII grossly intact, DTR 2+/4. No acute focal neurological deficit. Psych/Mental Status: Normal Affect, Appropriate. Assessment & Plan Assessment/Plan (1) Closed intertrochanteric fracture of right hip: QUALIFIERS: Encounter type: initial encounter Fracture alignment: displaced Qualified Code(s): S72.141A - Displaced intertrochanteric fracture of right femur, initial encounter for closed fracture (2) Closed right hip fracture: PLAN: Plan # Acute debility due to right intertrochanteric femur fracture Fell from a height after she was trying to clean her ceiling fans. Imaging done showed angulated intertrochanteric fracture of the right femur On p.o. Tylenol, p.o. oxycodone and IV morphine as needed for pain. Orthopedic surgery on board. PT OT on board. s/p right cephalomedullary nailing on 11/13/2023. #Hypothyroidism: On Synthroid and liothyronine. Will clarify if patient is actually supposed to be on both. #GERD: On PPI #Depression and anxiety: On Wellbutrin and mirtazapine as well as sertraline. #COPD: Not in exacerbation. Breathing treatments with bronchodilators. DVT prophylaxis: on Xarelto per orthopedics. Disposition: awaiting placement. case management on board to help facilitate placement Disposition: Possible SNF Charges/Coding Visit Charges Inpatient E&M: 29498 Subs Hosp L2
[2023-11-15] MEDS: Pantoprazole Sodium 40 MG Tablet PO ×2 (11:09→21:09)
[2023-11-15] MEDS: Menthol/Lanolin/Calamine/Znox 113 GM Tube 1 APPLIC TOPICAL ×2 (11:10→21:24)
[2023-11-15] MEDS: Meloxicam 15 MG Tablet PO (11:12)
[2023-11-15] MEDS: Cholecalciferol (VIT D3) 25 MCG TABLET (1,000 UNITS) 50 MCG PO (11:13)
[2023-11-15] MEDS: Sertraline 100 MG Tablet 150 MG PO (11:14)
[2023-11-15] MEDS: buPROPion (SR) 150 MG Tablet.SA PO (11:14)
[2023-11-15] MEDS: proCHLORPERazine 10 MG/2 ML Vial 5 MG IV (11:58)
[2023-11-15] MEDS: Mag /Aluminum/Simeth WCH UDC 30 ML ORAL.SUSP PO (13:58)
[2023-11-15 14:03] VITALS: BP 133/89; PULSE 95; RESP 18; TEMP 36.6; O2SAT 96
[2023-11-15 17:44] VITALS: BP 129/77; PULSE 99; RESP 18; TEMP 36.3; O2SAT 95
[2023-11-15] MEDS: Rivaroxaban 10 MG Tablet PO (18:10)
[2023-11-15 20:41] VITALS: BP 114/56; PULSE 84; RESP 18; TEMP 37.2; O2SAT 92
[2023-11-15] MEDS: Mirtazapine 15 MG Tablet 45 MG PO (21:08)
[2023-11-15] MEDS: Pravastatin 20 MG Tablet 10 MG PO (21:09)
[2023-11-16 02:30] VITALS: BP 133/56; PULSE 106; RESP 18; TEMP 36.6; O2SAT 97
[2023-11-16] MEDS: Acetaminophen 500 MG Tablet 1000 MG PO ×3 (05:31→20:34)
[2023-11-16] MEDS: Liothyronine 5 MCG Tablet PO (05:31)
[2023-11-16] MEDS: Levothyroxine 100 MCG Tablet PO (05:31)
[2023-11-16 06:25] LABS: Absolute Lymphocyte Count 1.09 X10^3/uL (0.83-4.51); Absolute Neutrophil Count 6.6 X10^3/uL (2.0-7.7); Basophil# 0.03 X10^3/uL; Basophil% 0.4 % (0-1); Eosinophil# 0.06 X10^3/uL; Eosinophils% 0.7 % (0-5); Hematocrit 28.3 % (37-47); Hemoglobin 9.3 g/dL (12.0-15.0); Lymphocyte # 1.09 X10^3/ul (0.83-4.51); Lymphocyte % 12.9 % (19-41); Mean Corp Hgb Conc 32.9 g/dL (32-36); Mean Corpuscular Volume 91.3 fL (81-99); Monocyte# 0.66 X10^3/uL; Monocyte% 7.8 % (0-10); NRBC Flagged by Analyzer 0 % (0-5); Neutrophil # 6.59 X10^3/uL (2.7-7.7); Neutrophil % 77.6 % (47-70); Platelet Count 175 K/mm3 (150-450); RBC Distribution Width CV 15.2 % (11.6-14.6); RBC Distribution Width SD 50.5 fl (35.1-43.9); White Blood Count 8.5 K/mm3 (4.4-11.0)
[2023-11-16 07:00] LABS: Anion Gap 7 (5-15); BUN 11 mg/dL (7-18); BUN/Creat Ratio 14.9 RATIO (10-20); Calcium,Total 8.4 mg/dL (8.5-10.1); Chloride 103 mmol/L (98-107); Creatinine, Serum 0.74 mg/dL (0.55-1.02); EST Glomerular Filtration Rate 81 mL/min (>60); Est Glom Filt Rate - Afr Amer 98 mL/min (>60); Estimated Creatinine Clearance 49.96 ml/min; Glucose 116 mg/dL (74-106); Potassium 3.6 mmol/L (3.5-5.1); Sodium Level 134 mmol/L (136-145)
[2023-11-16 07:43] VITALS: O2SAT 91
[2023-11-16] MEDS: Sertraline 100 MG Tablet 150 MG PO (07:47)
[2023-11-16] MEDS: Cholecalciferol (VIT D3) 25 MCG TABLET (1,000 UNITS) 50 MCG PO (07:47)
[2023-11-16] MEDS: Pantoprazole Sodium 40 MG Tablet PO ×2 (07:47→20:36)
[2023-11-16] MEDS: Menthol/Lanolin/Calamine/Znox 113 GM Tube 1 APPLIC TOPICAL ×2 (07:48→20:38)
[2023-11-16] MEDS: Calcium Carbonate 500 MG Tablet PO ×3 (07:48→17:32)
[2023-11-16] MEDS: Meloxicam 15 MG Tablet PO (07:49)
[2023-11-16] MEDS: buPROPion (SR) 150 MG Tablet.SA PO (07:49)
[2023-11-16 08:29] VITALS: BP 101/58; PULSE 98; RESP 16; TEMP 36.6; O2SAT 93
--- NOTE | 2023-11-16 10:40 | CASEMGMT ---
Discharge Planning Updates sent to [facility]. Deirdre Elise DC Planning Asst.
--- NOTE | 2023-11-16 10:58 | CASEMGMT ---
Discharge Planning [facility] declined and [facility] accepted. [facility] is foc. Awaiting decision from them. Deirdre Elise DC Planning Asst.
--- NOTE | 2023-11-16 11:17 | CASEMGMT ---
Social Work SW met w/pt and family in room. SW let her know TCU is not able to take pt, we are now waiting to hear back from [facility]. SW let her know that [facility] did accept her, pt prefers [facility] to [facility]. SW explained will let her know as soon as we know. SW will continue to follow. SLIM Mcguire
--- NOTE | 2023-11-16 11:55 | CASEMGMT ---
Discharge Planning [facility] accepted. Requested precert be started. SW updated. Deirdre Elise DC Planning Asst.
--- NOTE | 2023-11-16 12:34 | CASEMGMT ---
Social Work [facility]CU cannot take pt, [facility] can and started precert. SW let pt know, she is agreeable to [facility], will continue to follow. SLIM Mcguire
[2023-11-16 14:10] VITALS: BP 109/64; PULSE 95; RESP 16; TEMP 36.7; O2SAT 98
--- NOTE | 2023-11-16 15:10 | PN.HOSP_ITS ---
Reason for Visit Reason for Visit: Diagnoses Hypothyroidism, unspecified (11/12/23) Fracture of unspecified part of neck of right femur, initial encounter for closed fracture (11/12/23) Displaced intertrochanteric fracture of right femur, initial encounter for closed fracture (11/12/23) Tobacco use (11/12/23) Personal history of other malignant neoplasm of large intestine (11/12/23) Personal history of other mental and behavioral disorders (11/12/23) Personal history of other diseases of the respiratory system (11/12/23) Personal history of other diseases of the digestive system (11/12/23) Objective Data Objective Data Vital Signs: Vital Signs Temp Pulse Resp BP Pulse Ox O2 Del Method O2 Flow Rate 97.8 F 98 16 101/58 L 93 Room Air 2 11/16/23 08:29 11/16/23 08:29 11/16/23 08:29 11/16/23 08:29 11/16/23 08:29 11/16/23 10:00 11/16/23 03:00 Oxygen Flow Rate (L/min) 2 Oxygen Delivery Method Room Air Weight: 142 lb 13.753 oz Body Mass Index (BMI) 26.9 Intake & Output: Intake and Output for Last 24 Hours 11/14/23 11/15/23 11/16/23 23:59 23:59 23:59 Intake Total 1050 / 1300 1050 / 1250 1633.5 / 1633.5 Output Total 450 / 450 75 / 75 Balance 600 / 850 975 / 1175 1633.5 / 1633.5 Lab / Micro Data 11/16/23 05:56 11/16/23 05:56 Labs: Laboratory Results - last 24 hr 11/16/23 05:56: WBC 8.5, RBC 3.10 L, Hgb 9.3 L, Hct 28.3 L, MCV 91.3, MCH 30.0, MCHC 32.9, RDW Std Deviation 50.5 H, RDW Coeff of Jaclyn 15.2 H, Plt Count 175, MPV 10.0, Immature Gran % (Auto) 0.600, Neut % (Auto) 77.6 H, Lymph % (Auto) 12.9 L, [place] % (Auto) 7.8, Eos % (Auto) 0.7, Baso % (Auto) 0.4, Absolute Neuts (auto) 6.6, Absolute Lymphs (auto) 1.09, Nucleated RBC % 0, Sodium 134 L, Potassium 3.6, Chloride 103, Carbon Dioxide 24.0, Anion Gap 7, BUN 11, Creatinine 0.74, Estim Creat Clear Calc 49.96, Est GFR (MDRD) Af Amer 98, Est GFR (MDRD) Non-Af 81, BUN/Creatinine Ratio 14.9, Glucose 116 H, Calcium 8.4 L Physical Exam Narrative Seen and examined. She moved her bowel. No fever. Physical exam General: Alert, Oriented x3, Cooperative HEENT: Atraumatic, PERRLA, EOMI, Normocephalic Oral: No Gingival or Mucosal Lesions/ Ulcerations Neck: Supple, No JVD, Negative Carotid Bruits Chest wall/Lungs: Air entry diminished in bilateral lung bases. No crepitation/rhonchi Cardiovascular: Regular rate, Regular Rhythm, Normal S1, Normal S2, soft systolic murmur over right second ICS. Abdomen: Bowel Sounds Present, Soft, Non Tender, Non-Distended : No dysuria. No renal angle tenderness. No suprapubic tenderness. Extremities: No edema, Capillary Refill Less than 3 Seconds Skin: Surgical dressing over right hip operative regimen change. Dressing is dry and clean. No hematoma or surrounding bruise. Musculoskeletal: No tenderness around surgical right hip. No Tenderness to Palpation of other joints or Extremities Neurological: Cranial nerves II-XII grossly intact, DTR 2+/4. No acute focal neurological deficit. Psych/Mental Status: Normal Affect, Appropriate. Assessment & Plan Assessment/Plan (1) Closed intertrochanteric fracture of right hip: QUALIFIERS: Encounter type: initial encounter Fracture alignment: displaced Qualified Code(s): S72.141A - Displaced intertrochanteric fracture of right femur, initial encounter for closed fracture (2) Closed right hip fracture: PLAN: Plan # Acute debility due to right intertrochanteric femur fracture * Fell from a height after she was trying to clean her ceiling fans. Imaging done showed angulated intertrochanteric fracture of the right femur * On p.o. Tylenol, p.o. oxycodone and IV morphine as needed for pain. * Orthopedic surgery on board. * PT OT on board. * s/p right cephalomedullary nailing on 11/13/2023. 8/5: Dressing was changed yesterday for right hip. Dressings clean and dry. Plan to continue PT and OT and will require SNF. #Hypothyroidism: On Synthroid and liothyronine. Will clarify if patient is actually supposed to be on both. #GERD: On PPI #Depression and anxiety: On Wellbutrin and mirtazapine as well as sertraline. #COPD: Not in exacerbation. Breathing treatments with bronchodilators. DVT prophylaxis: on Xarelto per orthopedics. Disposition: awaiting placement. case management on board to help facilitate placement Disposition: Possible SNF Charges/Coding Visit Charges Inpatient E&M: 74443 Subs Hosp L2
[2023-11-16] MEDS: oxyCODONE 5 MG Tablet PO (15:25)
[2023-11-16] MEDS: Potassium Chloride Oral Tablet 20 MEQ 40 MEQ PO (15:26)
[2023-11-16] MEDS: Rivaroxaban 10 MG Tablet PO (17:32)
[2023-11-16 19:52] VITALS: O2SAT 95
[2023-11-16 20:06] VITALS: BP 101/58; PULSE 92; RESP 16; TEMP 36.4; O2SAT 95
[2023-11-16] MEDS: Mirtazapine 15 MG Tablet 45 MG PO (20:34)
[2023-11-16] MEDS: Pravastatin 20 MG Tablet 10 MG PO (20:35)
[2023-11-17] MEDS: MELATONIN 3 MG TABLET PO ×2 (02:23→22:16)
[2023-11-17 02:27] VITALS: BP 129/63; PULSE 78; RESP 16; TEMP 36.6; O2SAT 95
[2023-11-17] MEDS: Acetaminophen 500 MG Tablet 1000 MG PO ×3 (05:55→22:15)
[2023-11-17] MEDS: Liothyronine 5 MCG Tablet PO (05:55)
[2023-11-17] MEDS: Levothyroxine 100 MCG Tablet PO (05:56)
[2023-11-17 07:01] LABS: Absolute Lymphocyte Count 0.82 X10^3/uL (0.83-4.51); Basophil# 0.03 X10^3/uL; Basophil% 0.5 % (0-1); Eosinophil# 0.23 X10^3/uL; Eosinophils% 3.5 % (0-5); Hematocrit 24.5 % (37-47); Hemoglobin 8.1 g/dL (12.0-15.0); Lymphocyte # 0.82 X10^3/ul (0.83-4.51); Lymphocyte % 12.3 % (19-41); Mean Corp Hgb Conc 33.1 g/dL (32-36); Mean Corpuscular Hgb 29.9 pg (27.0-32.0); Mean Corpuscular Volume 90.4 fL (81-99); Mean Platelet Vol. 10.6 fl (6.2-12.0); Monocyte# 0.54 X10^3/uL; Monocyte% 8.1 % (0-10); NRBC Flagged by Analyzer 0 % (0-5); Neutrophil # 4.99 X10^3/uL (2.7-7.7); Neutrophil % 74.8 % (47-70); Platelet Count 203 K/mm3 (150-450); RBC Distribution Width CV 15.2 % (11.6-14.6); RBC Distribution Width SD 50.3 fl (35.1-43.9); Red Blood Count 2.71 M/mm3 (4.2-5.4); White Blood Count 6.7 K/mm3 (4.4-11.0)
[2023-11-17 07:10] LABS: Anion Gap 4 (5-15); BUN 10 mg/dL (7-18); BUN/Creat Ratio 15.9 RATIO (10-20); Calcium,Total 8.2 mg/dL (8.5-10.1); Chloride 106 mmol/L (98-107); Creatinine, Serum 0.63 mg/dL (0.55-1.02); EST Glomerular Filtration Rate 97 mL/min (>60); Est Glom Filt Rate - Afr Amer 117 mL/min (>60); Estimated Creatinine Clearance 49.96 ml/min; Glucose 106 mg/dL (74-106); Potassium 3.6 mmol/L (3.5-5.1); Sodium Level 137 mmol/L (136-145)
[2023-11-17 08:30] VITALS: BP 102/55; PULSE 102; RESP 18; TEMP 37.2; O2SAT 94
[2023-11-17] MEDS: buPROPion (SR) 150 MG Tablet.SA PO (08:32)
[2023-11-17] MEDS: Calcium Carbonate 500 MG Tablet PO ×3 (08:32→17:29)
[2023-11-17] MEDS: Cholecalciferol (VIT D3) 25 MCG TABLET (1,000 UNITS) 50 MCG PO (08:32)
[2023-11-17] MEDS: Meloxicam 15 MG Tablet PO (08:33)
[2023-11-17] MEDS: Menthol/Lanolin/Calamine/Znox 113 GM Tube 1 APPLIC TOPICAL ×2 (08:33→22:25)
[2023-11-17] MEDS: Sertraline 100 MG Tablet 150 MG PO (08:33)
[2023-11-17] MEDS: Pantoprazole Sodium 40 MG Tablet PO ×2 (08:33→22:54)
[2023-11-17] MEDS: oxyCODONE 5 MG Tablet PO ×2 (08:34→14:57)
[2023-11-17] MEDS: Potassium Chloride Oral Tablet 20 MEQ 40 MEQ PO (09:49)
--- NOTE | 2023-11-17 12:42 | PN.ORTHO_ITS ---
Subjective Subjective Postop day 4 status post right hip short gamma nailing. Pain well-controlled. Was able to walk the hallway. Nausea is better. Objective Data Objective Data Vital Signs: Vital Signs Temp Pulse Resp BP Pulse Ox O2 Del Method O2 Flow Rate 98.9 F 102 H 18 102/55 L 94 Room Air 2 11/17/23 08:30 11/17/23 08:30 11/17/23 08:30 11/17/23 08:30 11/17/23 08:30 11/17/23 08:30 11/17/23 02:27 Oxygen Flow Rate (L/min) 2 Oxygen Delivery Method Room Air Weight: 142 lb 13.753 oz Body Mass Index (BMI) 26.9 Intake & Output: Intake and Output for Last 24 Hours 11/15/23 11/16/23 11/17/23 23:59 23:59 23:59 Intake Total 1050 / 1250 1783.5 / 1783.5 600 / 600 Output Total 75 / 75 Balance 975 / 1175 1783.5 / 1783.5 600 / 600 Lab / Micro Data 11/17/23 05:48 11/17/23 05:48 Labs: Laboratory Results - last 24 hr 11/17/23 05:48: WBC 6.7, RBC 2.71 L, Hgb 8.1 L, Hct 24.5 L, MCV 90.4, MCH 29.9, MCHC 33.1, RDW Std Deviation 50.3 H, RDW Coeff of Jaclyn 15.2 H, Plt Count 203, MPV 10.6, Immature Gran % (Auto) 0.800, Neut % (Auto) 74.8 H, Lymph % (Auto) 12.3 L, [place] % (Auto) 8.1, Eos % (Auto) 3.5, Baso % (Auto) 0.5, Absolute Neuts (auto) 5.0, Absolute Lymphs (auto) 0.82 L, Nucleated RBC % 0, Sodium 137, Potassium 3.6, Chloride 106, Carbon Dioxide 27.0, Anion Gap 4 L, BUN 10, Creatinine 0.63, Estim Creat Clear Calc 49.96, Est GFR (MDRD) Af Amer 117, Est GFR (MDRD) Non-Af 97, BUN/Creatinine Ratio 15.9, Glucose 106, Calcium 8.2 L Physical Exam Narrative Dressing?CDI. Dressing was changed yesterday apparently. Distal neurovascular exam is intact. Assessment & Plan Assessment/Plan (1) Closed intertrochanteric fracture of right hip: QUALIFIERS: Encounter type: initial encounter Fracture alignment: displaced Qualified Code(s): S72.141A - Displaced intertrochanteric fracture of right femur, initial encounter for closed fracture PLAN: Plan Postop day 4 status post right hip short gamma nailing. DVT chemoprophylaxis with Xarelto for 2 weeks followed by aspirin for 4 weeks. Weightbearing as tolerated. Discharge to rehab once medically appropriate. Follow-up in Ortho clinic for staple removal in 2 weeks.
--- NOTE | 2023-11-17 13:00 | CASEMGMT ---
Addendum entered by Ofelia Sol 11/17/23 13:40: Social Work SW did get a message back from [facility] that the precert is still pending. Sw updated pt and . SLIM Mcguire Original Note: Social Work SW sent a message via [facility] to [facility] inquiring about precert, also sent updates. ZARIA McguireS
[2023-11-17 13:50] VITALS: BP 89/55; PULSE 93; RESP 18; TEMP 37.2; O2SAT 96
--- NOTE | 2023-11-17 13:57 | PN.HOSP_ITS ---
Reason for Visit Reason for Visit: Diagnoses Hypothyroidism, unspecified (11/12/23) Fracture of unspecified part of neck of right femur, initial encounter for closed fracture (11/12/23) Displaced intertrochanteric fracture of right femur, initial encounter for closed fracture (11/12/23) Tobacco use (11/12/23) Personal history of other malignant neoplasm of large intestine (11/12/23) Personal history of other mental and behavioral disorders (11/12/23) Personal history of other diseases of the respiratory system (11/12/23) Personal history of other diseases of the digestive system (11/12/23) Objective Data Objective Data Vital Signs: Vital Signs Temp Pulse Resp BP Pulse Ox O2 Del Method O2 Flow Rate 98.9 F 93 18 89/55 L 96 Room Air 2 11/17/23 13:50 11/17/23 13:50 11/17/23 13:50 11/17/23 13:50 11/17/23 13:50 11/17/23 13:54 11/17/23 02:27 Oxygen Flow Rate (L/min) 2 Oxygen Delivery Method Room Air Weight: 142 lb 13.753 oz Body Mass Index (BMI) 26.9 Intake & Output: Intake and Output for Last 24 Hours 11/15/23 11/16/23 11/17/23 23:59 23:59 23:59 Intake Total 1050 / 1250 1783.5 / 1783.5 600 / 600 Output Total 75 / 75 Balance 975 / 1175 1783.5 / 1783.5 600 / 600 Lab / Micro Data 11/17/23 05:48 11/17/23 05:48 Labs: Laboratory Results - last 24 hr 11/17/23 05:48: WBC 6.7, RBC 2.71 L, Hgb 8.1 L, Hct 24.5 L, MCV 90.4, MCH 29.9, MCHC 33.1, RDW Std Deviation 50.3 H, RDW Coeff of Jaclyn 15.2 H, Plt Count 203, MPV 10.6, Immature Gran % (Auto) 0.800, Neut % (Auto) 74.8 H, Lymph % (Auto) 12.3 L, [place] % (Auto) 8.1, Eos % (Auto) 3.5, Baso % (Auto) 0.5, Absolute Neuts (auto) 5.0, Absolute Lymphs (auto) 0.82 L, Nucleated RBC % 0, Sodium 137, Potassium 3.6, Chloride 106, Carbon Dioxide 27.0, Anion Gap 4 L, BUN 10, Creatinine 0.63, Estim Creat Clear Calc 49.96, Est GFR (MDRD) Af Amer 117, Est GFR (MDRD) Non-Af 97, BUN/Creatinine Ratio 15.9, Glucose 106, Calcium 8.2 L Physical Exam Narrative Seen and examined. No fever. No acute issues. Pending pre-CERT Physical exam General: Alert, Oriented x3, Cooperative HEENT: Atraumatic, PERRLA, EOMI, Normocephalic Oral: No Gingival or Mucosal Lesions/ Ulcerations Neck: Supple, No JVD, Negative Carotid Bruits Chest wall/Lungs: Air entry diminished in bilateral lung bases. No crepitation/rhonchi Cardiovascular: Regular rate, Regular Rhythm, Normal S1, Normal S2, soft systolic murmur over right second ICS. Abdomen: Bowel Sounds Present, Soft, Non Tender, Non-Distended : No dysuria. No renal angle tenderness. No suprapubic tenderness. Extremities: No edema, Capillary Refill Less than 3 Seconds Skin: Surgical dressing over right hip operative regimen change. Dressing is dry and clean. No hematoma or surrounding bruise. Musculoskeletal: No tenderness around surgical right hip. No Tenderness to Palpation of other joints or Extremities Neurological: Cranial nerves II-XII grossly intact, DTR 2+/4. No acute focal neurological deficit. Psych/Mental Status: Normal Affect, Appropriate. Assessment & Plan Assessment/Plan (1) Closed intertrochanteric fracture of right hip: QUALIFIERS: Encounter type: initial encounter Fracture alignment: displaced Qualified Code(s): S72.141A - Displaced intertrochanteric fracture of right femur, initial encounter for closed fracture (2) Closed right hip fracture: PLAN: Plan # Acute debility due to right intertrochanteric femur fracture * Fell from a height after she was trying to clean her ceiling fans. Imaging done showed angulated intertrochanteric fracture of the right femur * On p.o. Tylenol, p.o. oxycodone and IV morphine as needed for pain. * Orthopedic surgery on board. * PT OT on board. * s/p right cephalomedullary nailing on 11/13/2023. 8/5: Dressing was changed yesterday for right hip. Dressings clean and dry. Plan to continue PT and OT and will require SNF. 11/16: Patient is doing well. Advised to continue continue incentive spirometry and PEP for 1 week. She was smoking a pack per day before admission. Advised to quit smoking. Nicotine patch offered. #Hypothyroidism: On Synthroid and liothyronine. Will clarify if patient is actually supposed to be on both. #GERD: On PPI #Depression and anxiety: On Wellbutrin and mirtazapine as well as sertraline. #COPD: Not in exacerbation. Breathing treatments with bronchodilators. DVT prophylaxis: on Xarelto per orthopedics. Disposition: awaiting placement. case management on board to help facilitate placement Disposition: Possible SNF Charges/Coding Visit Charges Inpatient E&M: 35806 Subs Hosp L2
[2023-11-17 14:44] VITALS: BP 106/54; PULSE 92; RESP 18; TEMP 37.1; O2SAT 97
[2023-11-17] MEDS: Rivaroxaban 10 MG Tablet PO (17:29)
[2023-11-17 20:13] VITALS: BP 114/66; PULSE 95; RESP 15; TEMP 36.7; O2SAT 96
[2023-11-17 22:00] VITALS: RESP 15; O2SAT 96
[2023-11-17] MEDS: Pravastatin 20 MG Tablet 10 MG PO (22:15)
[2023-11-17] MEDS: Mirtazapine 15 MG Tablet 45 MG PO (22:16)
[2023-11-18 02:55] VITALS: BP 126/47; PULSE 91; RESP 15; TEMP 36.6; O2SAT 94
[2023-11-18 04:45] VITALS: O2SAT 96
[2023-11-18 05:05] LABS: Absolute Lymphocyte Count 0.98 X10^3/uL (0.83-4.51); Absolute Neutrophil Count 3.8 X10^3/uL (2.0-7.7); Basophil# 0.03 X10^3/uL; Basophil% 0.5 % (0-1); Eosinophil# 0.36 X10^3/uL; Eosinophils% 6.3 % (0-5); Hematocrit 24.2 % (37-47); Lymphocyte # 0.98 X10^3/ul (0.83-4.51); Lymphocyte % 17.1 % (19-41); Mean Corp Hgb Conc 33.1 g/dL (32-36); Mean Corpuscular Volume 90.6 fL (81-99); Mean Platelet Vol. 9.1 fl (6.2-12.0); Monocyte# 0.52 X10^3/uL; Monocyte% 9.1 % (0-10); NRBC Flagged by Analyzer 0 % (0-5); Neutrophil # 3.77 X10^3/uL (2.7-7.7); Neutrophil % 65.8 % (47-70); Platelet Count 213 K/mm3 (150-450); RBC Distribution Width CV 15.1 % (11.6-14.6); RBC Distribution Width SD 49.7 fl (35.1-43.9); Red Blood Count 2.67 M/mm3 (4.2-5.4); White Blood Count 5.7 K/mm3 (4.4-11.0)
[2023-11-18 05:30] LABS: Anion Gap 5 (5-15); BUN 11 mg/dL (7-18); BUN/Creat Ratio 17.4 RATIO (10-20); Calcium,Total 8.7 mg/dL (8.5-10.1); Chloride 105 mmol/L (98-107); Creatinine, Serum 0.63 mg/dL (0.55-1.02); EST Glomerular Filtration Rate 97 mL/min (>60); Est Glom Filt Rate - Afr Amer 117 mL/min (>60); Estimated Creatinine Clearance 49.96 ml/min; Glucose 102 mg/dL (74-106); Potassium 4.3 mmol/L (3.5-5.1); Sodium Level 136 mmol/L (136-145)
[2023-11-18] MEDS: Liothyronine 5 MCG Tablet PO (05:45)
[2023-11-18] MEDS: Levothyroxine 100 MCG Tablet PO (05:45)
[2023-11-18] MEDS: Acetaminophen 500 MG Tablet 1000 MG PO ×2 (05:45→14:49)
--- NOTE | 2023-11-18 07:09 | PN.HOSP_ITS ---
Reason for Visit Reason for Visit: Diagnoses Hypothyroidism, unspecified (11/12/23) Fracture of unspecified part of neck of right femur, initial encounter for closed fracture (11/12/23) Displaced intertrochanteric fracture of right femur, initial encounter for closed fracture (11/12/23) Tobacco use (11/12/23) Personal history of other malignant neoplasm of large intestine (11/12/23) Personal history of other mental and behavioral disorders (11/12/23) Personal history of other diseases of the respiratory system (11/12/23) Personal history of other diseases of the digestive system (11/12/23) Objective Data Objective Data Vital Signs: Vital Signs Temp Pulse Resp BP Pulse Ox O2 Del Method O2 Flow Rate 97.9 F 91 15 126/47 H 96 Room Air 2 11/18/23 02:55 11/18/23 02:55 11/18/23 02:55 11/18/23 02:55 11/18/23 04:45 11/18/23 04:45 11/17/23 02:27 Oxygen Flow Rate (L/min) 2 Oxygen Delivery Method Room Air Weight: 142 lb 13.753 oz Body Mass Index (BMI) 26.9 Intake & Output: Intake and Output for Last 24 Hours 11/16/23 11/17/23 11/18/23 23:59 23:59 23:59 Intake Total 1783.5 / 1783.5 600 / 1000 500 / 500 Balance 1783.5 / 1783.5 600 / 1000 500 / 500 Lab / Micro Data 11/18/23 04:54 11/18/23 04:54 Labs: Laboratory Results - last 24 hr 11/17/23 05:48: Sodium 137, Potassium 3.6, Chloride 106, Carbon Dioxide 27.0, A nion Gap 4 L, BUN 10, Creatinine 0.63, Estim Creat Clear Calc 49.96, Est GFR (MDRD) Af Amer 117, Est GFR (MDRD) Non-Af 97, BUN/Creatinine Ratio 15.9, Glucose 106, Calcium 8.2 L 11/18/23 04:54: WBC 5.7, RBC 2.67 L, Hgb 8.0 L, Hct 24.2 L, MCV 90.6, MCH 30.0, MCHC 33.1, RDW Std Deviation 49.7 H, RDW Coeff of Jaclyn 15.1 H, Plt Count 213, MPV 9.1, Immature Gran % (Auto) 1.200 H, Neut % (Auto) 65.8, Lymph % (Auto) 17.1 L, [place] % (Auto) 9.1, Eos % (Auto) 6.3 H, Baso % (Auto) 0.5, Absolute Neuts (auto) 3.8, Absolute Lymphs (auto) 0.98, Nucleated RBC % 0, Sodium 136, Potassium 4.3, Chloride 105, Carbon Dioxide 26.0, Anion Gap 5, BUN 11, Creatinine 0.63, Estim Creat Clear Calc 49.96, Est GFR (MDRD) Af Amer 117, Est GFR (MDRD) Non-Af 97, BUN/Creatinine Ratio 17.4, Glucose 102, Calcium 8.7 Physical Exam Narrative Seen and examined. No fever. No acute issues. Pending pre-CERT Physical exam General: Alert, Oriented x3, Cooperative HEENT: Atraumatic, PERRLA, EOMI, Normocephalic Oral: No Gingival or Mucosal Lesions/ Ulcerations Neck: Supple, No JVD, Negative Carotid Bruits Chest wall/Lungs: Air entry diminished in bilateral lung bases. No crepitation/rhonchi Cardiovascular: Regular rate, Regular Rhythm, Normal S1, Normal S2, soft systolic murmur over right second ICS. Abdomen: Bowel Sounds Present, Soft, Non Tender, Non-Distended : No dysuria. No renal angle tenderness. No suprapubic tenderness. Extremities: No edema, Capillary Refill Less than 3 Seconds Skin: Surgical dressing over right hip operative regimen change. Dressing is dry and clean. No hematoma or surrounding bruise. Musculoskeletal: No tenderness around surgical right hip. No Tenderness to Palpation of other joints or Extremities Neurological: Cranial nerves II-XII grossly intact, DTR 2+/4. No acute focal neurological deficit. Psych/Mental Status: Normal Affect, Appropriate. Assessment & Plan Assessment/Plan (1) Closed intertrochanteric fracture of right hip: QUALIFIERS: Encounter type: initial encounter Fracture alignment: displaced Qualified Code(s): S72.141A - Displaced intertrochanteric fracture of right femur, initial encounter for closed fracture (2) Closed right hip fracture: PLAN: Plan # Acute debility due to right intertrochanteric femur fracture * Fell from a height after she was trying to clean her ceiling fans. Imaging done showed angulated intertrochanteric fracture of the right femur * On p.o. Tylenol, p.o. oxycodone and IV morphine as needed for pain. * Orthopedic surgery on board. * PT OT on board. * s/p right cephalomedullary nailing on 11/13/2023. 11/15: Dressing was changed yesterday for right hip. Dressings clean and dry. Plan to continue PT and OT and will require SNF. 11/16: Patient is doing well. Advised to continue continue incentive spirometry and PEP for 1 week. She was smoking a pack per day before admission. Advised to quit smoking. Nicotine patch offered. Acute blood loss anemia: Patient patient hemoglobin dropped from 12.7-8.0. Is most likely acute blood loss postoperative anemia from surgical procedure and patient on Xarelto #Hypothyroidism: On Synthroid and liothyronine. Will clarify if patient is actually supposed to be on both. #GERD: On PPI #Depression and anxiety: On Wellbutrin and mirtazapine as well as sertraline. #COPD: Not in exacerbation. Breathing treatments with bronchodilators. DVT prophylaxis: on Xarelto per orthopedics. Disposition: awaiting placement. case management on board to help facilitate placement Disposition: Possible SNF
[2023-11-18 07:46] VITALS: O2SAT 92
[2023-11-18 08:13] VITALS: BP 126/68; PULSE 88; RESP 18; TEMP 36.9; O2SAT 97
[2023-11-18] MEDS: Potassium Chloride Oral Tablet 20 MEQ 40 MEQ PO (09:23)
[2023-11-18] MEDS: buPROPion (SR) 150 MG Tablet.SA PO (09:23)
[2023-11-18] MEDS: Calcium Carbonate 500 MG Tablet PO ×3 (09:23→16:37)
[2023-11-18] MEDS: Pantoprazole Sodium 40 MG Tablet PO (09:24)
[2023-11-18] MEDS: Cholecalciferol (VIT D3) 25 MCG TABLET (1,000 UNITS) 50 MCG PO (09:24)
[2023-11-18] MEDS: Sertraline 100 MG Tablet 150 MG PO (09:26)
[2023-11-18] MEDS: oxyCODONE 5 MG Tablet PO (09:34)
[2023-11-18] MEDS: Menthol/Lanolin/Calamine/Znox 113 GM Tube 1 APPLIC TOPICAL (09:36)
--- NOTE | 2023-11-18 10:45 | TREXTCAR_ITS ---
Diet Diet Order/Speech Therapy: 11/14/23 07:47 Diet: Regular - General Routine Orders/Code Status Suppository Type: Dulcolax 10mg Suppository Frequency: Daily PRN Wound(s) RIGHT HIP: Wound Type: Surgical Incision Therapies Extremity Affected:: Bilateral Lower Physical Therapy: Eval and Treat Occupational Therapy: Eval and Treat Speech Therapy: Eval and Treat Problem/Diagnosis (1) Closed intertrochanteric fracture of right hip: Status: Acute Code(s): S72.141A - Displaced intertrochanteric fracture of right femur, initial encounte r for closed fracture (2) Closed right hip fracture: Status: Acute Code(s): S72.001A - Fracture of unspecified part of neck of right femur, initial encounter for closed fracture Plan # Acute debility due to right intertrochanteric femur fracture * Fell from a height after she was trying to clean her ceiling fans. Imaging done showed angulated intertrochanteric fracture of the right femur * On p.o. Tylenol, p.o. oxycodone and IV morphine as needed for pain. * Orthopedic surgery on board. * PT OT on board. * s/p right cephalomedullary nailing on 11/13/2023. 11/15: Dressing was changed yesterday for right hip. Dressings clean and dry. Plan to continue PT and OT and will require SNF. 11/16: Patient is doing well. Advised to continue continue incentive spirometry and PEP for 1 week. She was smoking a pack per day before admission. Advised to quit smoking. Nicotine patch offered. Acute blood loss anemia: Patient patient hemoglobin dropped from 12.7-8.0. Is most likely acute blood loss postoperative anemia from surgical procedure and patient on Xarelto #Hypothyroidism: On Synthroid and liothyronine. Will clarify if patient is actually supposed to be on both. #GERD: On PPI #Depression and anxiety: On Wellbutrin and mirtazapine as well as sertraline. #COPD: Not in exacerbation. Breathing treatments with bronchodilators. DVT prophylaxis: on Xarelto per orthopedics. Disposition: awaiting placement. case management on board to help facilitate placement Disposition: Possible SNF Allergies/Procedures Done in Hospital Allergies Sulfa (Sulfonamide Antibiotics) Allergy (Verified 11/12/23 14:15) Rash Type of Care/Length of Stay Estimated LOS: Convalescent Care Less Than 30 days Type of Care Needed: Skilled Rehab Potential: Good Prognosis: Good Additional Orders/Day of Discharge Day of Discharge: 11/18/23 Dietary and Speech Recommendations Dietitian Recommendations/Changes: Continue Regular diet to optimize oral intakes. RD will order 120mL ensure plus high protein strawberry TID with medpass to provide supplemental energy. Discharge Plan Admission Admit Date/Time: 11/12/23 16:57 Primary Reason for Your Visit: Right hip fracture. Attending Provider: Khang Gardner Primary Care Provider: Zuly Blas Consulting Providers: Meek Mancuso; Hansa Contreras; Daniella Baum; Amena Walters; Clint Mathews; Clint Machado; Tono Bhagat; John Darling; Sachin Smith; Lulu Shaw; Tani Schneider; Dayan Baez; Hosea Heller; Khang Gardner; Jamil Patel; Liliane Badillo; Mukul Casey Discharge Orders/Prescriptions Prescriptions: New sennosides-docusate sodium [Stimulant Laxative Plus] 8.6-50 mg Tablet 2 tab PO BID PRN PRN (Reason: Constipation) Qty: 0 0RF acetaminophen 500 mg Tablet 1,000 mg PO Q8 Qty: 0 0RF potassium chloride 20 mEq Tablet,Er Particles/Crystals 40 meq PO DAILYCM 7 Days Qty: 14 0RF oxycodone 5 mg Tablet 2.5 mg PO Q4H PRN PRN (Reason: Pain Score 4-10) 3 Days Qty: 7 0RF Rx Instructions: Oxycodone 2.5 mg for moderate pain and 5 mg for severe pain respectively. Xarelto 10 mg Tablet 10 mg PO DINNER 30 Days Qty: 30 0RF Continued liothyronine 5 mcg tablet 5 mcg PO DAILY omeprazole 20 MG capsule 40 mg PO BID Patient Comments: GERD meloxicam 15 MG tablet 15 mg PO DAILY Patient Comments: pain pravastatin 10 MG tablet 10 mg PO QHS cholecalciferol (vitamin D3) 50,000 UNIT capsule 50,000 units PO QWEEK Patient Comments: takes on sertraline 100 mg tablet 150 mg PO DAILY bupropion HCl 150 mg tablet sustained-release 12 hr 150 mg PO DAILY levothyroxine 100 mcg tablet 100 mcg PO DAILY mirtazapine 45 mg tablet 45 mg PO QHS Changed lorazepam 1 MG tablet 0.5 mg PO QHS PRN (Reason: sleep) 3 Days Qty: 0 0RF Patient Comments: ANXIETY Referrals / Follow Up: Reginaldo Cool MD [Med Staff - Active Staff] - Within 2 Weeks Zuly Blas DO [Primary Care Provider] - Within 2 Weeks Disposition Disposition (needs filled in before D/C Order can be placed): Intermediate Facility (1) Closed intertrochanteric fracture of right hip Qualifiers: Encounter type: initial encounter Fracture alignment: displaced Qualified Code(s): S72.141A - Displaced intertrochanteric fracture of right femur, initial encounter for closed fracture
--- NOTE | 2023-11-18 12:29 | CASEMGMT ---
Discharge Planning [facility] has obtained auth to admit. SW updated. Deirdre Elise DC Planning Asst.
--- NOTE | 2023-11-18 12:50 | DS.PCM_ITS ---
Providers Date of Admission: 11/12/23 Date of Discharge: 11/18/23 Primary Care Physician: Dr. Zuly Blas, DO Consultations 11/12/23 17:16 Consult: Orthopedics Routine Consulting Provider: Carlos Sylvester Reason for Consult: R hip fx EMERGENT Consult: No Notified: Yes Date Notified: 11/12/23 Time Notified: 17:02 Method of Notification: ED Physician Initiated 11/12/23 18:51 Consult: Orthopedics Routine Consulting Provider: Regino Mendez Reason for Consult: right angulated intertrocahnteric right femur fx s/p fall EMERGENT Consult: No Notified: Yes Date Notified: 11/12/23 Time Notified: 18:00 Method of Notification: Verbal Method of Consult:: In-Person Reason For Visit: HIP FX RIGHT Diagnosis Discharge Diagnosis (1) Closed intertrochanteric fracture of right hip: Status: Acute Code(s): S72.141A - Displaced intertrochanteric fracture of right femur, initial encounter for closed fracture Qualifiers: Encounter type: initial encounter Fracture alignment: displaced Q ualified Code(s): S72.141A - Displaced intertrochanteric fracture of right femur, initial encounter for closed fracture (2) Closed right hip fracture: Status: Acute Code(s): S72.001A - Fracture of unspecified part of neck of right femur, initial encounter for closed fracture Plan # Acute debility due to right intertrochanteric femur fracture * Fell from a height after she was trying to clean her ceiling fans. Imaging done showed angulated intertrochanteric fracture of the right femur * On p.o. Tylenol, p.o. oxycodone and IV morphine as needed for pain. * Orthopedic surgery on board. * PT OT on board. * s/p right cephalomedullary nailing on 11/13/2023. 11/15: Dressing was changed yesterday for right hip. Dressings clean and dry. Plan to continue PT and OT and will require SNF. 11/16: Patient is doing well. Advised to continue continue incentive spirometry and PEP for 1 week. She was smoking a pack per day before admission. Advised to quit smoking. Nicotine patch offered. 11/17: Patient is doing well with PT. Having bowel movement. No acute issues. Patient is being discharged to SNF. Acute blood loss anemia: Patient patient hemoglobin dropped from 12.7-8.0. Is most likely acute blood loss postoperative anemia from surgical procedure and patient on Xarelto. Iron infusion ordered. Discontinue Xarelto if platelet count drops less than 50,000 or hemoglobin less than 8 g%. On omeprazole 40 mg twice daily. Prescription also given for ferrous sulfate and cholic acid. #Hypothyroidism: On Synthroid and liothyronine. Will clarify if patient is actually supposed to be on both. #GERD: On PPI #Depression and anxiety: On Wellbutrin and mirtazapine as well as sertraline. #COPD: Not in exacerbation. Breathing treatments with bronchodilators. DVT prophylaxis: on Xarelto per orthopedics. Discharge medication reconciliation done. Discharge follow-up instructions completed. Discharge process discussed with the patient and all questions were answered to patient's satisfaction. Follow with PCP in 1 to 2 weeks Total time spent, exact 35 minutes on discharge meds reconciliation, examination, coordination of care with nurses and ancillary staff, review of imaging and blood test and discussion with the patient on follow-up instructions. Medications at Discharge Home Medications omeprazole 20 mg capsule,delayed release 40 mg PO BID GERD 06/11/13 cholecalciferol (vitamin D3) 1,250 mcg (50,000 unit) capsule 50,000 units PO QWEEK supple 01/24/19 pravastatin 10 mg tablet 10 mg PO QHS cholesterol 01/24/19 liothyronine 5 mcg tablet 5 mcg PO DAILY hypothyroid 07/09/23 sertraline 100 mg tablet 150 mg PO DAILY depression 07/09/23 levothyroxine 100 mcg tablet 100 mcg PO DAILY hypothyroid 07/28/23 mirtazapine 45 mg tablet 45 mg PO QHS depression/anxiety 07/28/23 bupropion HCl 150 mg tablet,12 hr sustained-release 150 mg PO DAILY depression/anxiety 11/12/23 acetaminophen 500 mg tablet 1,000 mg (2 x 500 mg) PO Q8 #0 tabs 11/17/23 lorazepam 1 mg tablet 0.5 mg (1/2 x 1 mg) PO QHS PRN sleep 3 days #0 tabs 11/17/23 oxycodone 5 mg tablet 2.5 mg (1/2 x 5 mg) PO Q4H PRN PRN Pain Score 4-10 3 days #7 tabs 11/17/23 potassium chloride 20 mEq tablet,extended release(part/cryst) 40 meq (2 x 20 mEq) PO DAILYCM 7 days #14 tabs 11/17/23 rivaroxaban 10 mg tablet (Xarelto) 10 mg PO DINNER 30 days #30 tabs 11/17/23 sennosides 8.6 mg-docusate sodium 50 mg tablet (Stimulant Laxative Plus) 2 tab PO BID PRN PRN Constipation #0 tabs 11/17/23 ascorbic acid (vitamin C) 500 mg tablet 500 mg PO BID #60 tabs 11/18/23 ferrous sulfate 325 mg (65 mg iron) tablet (FeroSul) 325 mg PO DAILY 30 days #30 tabs 11/18/23 Physical Exam Narrative Seen and examined. No fever. No acute issues. Had pre-CERT to go to SNF. Physical exam General: Alert, Oriented x3, Cooperative HEENT: Atraumatic, PERRLA, EOMI, Normocephalic Oral: No Gingival or Mucosal Lesions/ Ulcerations Neck: Supple, No JVD, Negative Carotid Bruits Chest wall/Lungs: Air entry diminished in bilateral lung bases. No crepitation/rhonchi Cardiovascular: Regular rate, Regular Rhythm, Normal S1, Normal S2, soft systolic murmur over right second ICS. Abdomen: Bowel Sounds Present, Soft, Non Tender, Non-Distended : No dysuria. No renal angle tenderness. No suprapubic tenderness. Extremities: No edema, Capillary Refill Less than 3 Seconds Skin: Surgical dressing over right hip operative regimen change. Dressing is dry and clean. No hematoma or surrounding bruise. Musculoskeletal: No tenderness around surgical right hip. No Tenderness to Palpation of other joints or Extremities Neurological: Cranial nerves II-XII grossly intact, DTR 2+/4. No acute focal neurological deficit. Psych/Mental Status: Normal Affect, Appropriate. Weight / BMI Weight Weight: 142 lb 13.753 oz Body Mass Index (BMI) 26.9 ABG / Lab / Microbiology Data 11/18/23 04:54 11/18/23 04:54 Laboratory: Laboratory Results - last 24 hr 11/18/23 04:54: WBC 5.7, RBC 2.67 L, Hgb 8.0 L, Hct 24.2 L, MCV 90.6, MCH 30.0, MCHC 33.1, RDW Std Deviation 49.7 H, RDW Coeff of Jaclyn 15.1 H, Plt Count 213, MPV 9.1, Immature Gran % (Auto) 1.200 H, Neut % (Auto) 65.8, Lymph % (Auto) 17.1 L, Lucas % (Auto) 9.1, Eos % (Auto) 6.3 H, Baso % (Auto) 0.5, Absolute Neuts (auto) 3.8, Absolute Lymphs (auto) 0.98, Nucleated RBC % 0, Sodium 136, Potassium 4.3, Chloride 105, Carbon Dioxide 26.0, Anion Gap 5, BUN 11, Creatinine 0.63, Estim Creat Clear Calc 49.96, Est GFR (MDRD) Af Amer 117, Est GFR (MDRD) Non-Af 97, BUN/Creatinine Ratio 17.4, Glucose 102, Calcium 8.7 Meaningful Use Info Meaningful Use Meaningful Use Diagnoses (Choose all that apply): None applicable Ischemic Stroke Statin Dosing Therapy Reference: STATIN DOSE THERAPY REFERENCE: * Patients > 75 years receive moderate or high dose statin therapy. * Patients 75 years or YOUNGER should receive HIGH intensity statin dose unless contraindicated. You will be required to document reason for non-treatment if statin daily dose does not meet guidelines. HIGH DOSE STATIN THERAPY DAILY Atorvastatin > than or = to 40 mg Rosuvastatin > than or = to 20 mg Amlodipine + Atorvastatin > than or = to 2.5/40 mg Ezetimibe + Simvastatin 10/80 mg Simvastatin 80mg Discharge Plan Admission Admit Date/Time: 11/12/23 16:57 Primary Reason for Your Visit: Right hip fracture. Attending Provider: Khang Gardner Primary Care Provider: Zuly Blas Consulting Providers: Meek Mancuso; Hansa Contreras; Daniella Baum; Amena Walters; Clint Mathews; Clint Machado; Tono Bhagat; John Darling; Sachin Smith; Lulu Shaw; Tani Schneider; Dayan Baez; Hosea Heller; Khang Gardner; Jamil Patel; Liliane Badillo; Mukul Casey Instructions Additional Instructions / Restrictions: Discontinue Xarelto if platelet count drops less than 50,000 or hemoglobin less than 8.0 g% Discharge Orders/Prescriptions Prescriptions: New sennosides-docusate sodium [Stimulant Laxative Plus] 8.6-50 mg Tablet 2 tab PO BID PRN PRN (Reason: Constipation) Qty: 0 0RF acetaminophen 500 mg Tablet 1,000 mg PO Q8 Qty: 0 0RF potassium chloride 20 mEq Tablet,Er Particles/Crystals 40 meq PO DAILYCM 7 Days Qty: 14 0RF oxycodone 5 mg Tablet 2.5 mg PO Q4H PRN PRN (Reason: Pain Score 4-10) 3 Days Qty: 7 0RF Rx Instructions: Oxycodone 2.5 mg for moderate pain and 5 mg for severe pain respectively. Xarelto 10 mg Tablet 10 mg PO DINNER 30 Days Qty: 30 0RF ferrous sulfate [FeroSul] 325 mg (65 mg iron) tablet 325 mg PO DAILY 30 Days Qty: 30 2RF ascorbic acid (vitamin C) 500 mg tablet 500 mg PO BID Qty: 60 2RF Continued liothyronine 5 mcg tablet 5 mcg PO DAILY omeprazole 20 MG capsule 40 mg PO BID Patient Comments: GERD pravastatin 10 MG tablet 10 mg PO QHS cholecalciferol (vitamin D3) 50,000 UNIT capsule 50,000 units PO QWEEK Patient Comments: takes on sertraline 100 mg tablet 150 mg PO DAILY bupropion HCl 150 mg tablet sustained-release 12 hr 150 mg PO DAILY levothyroxine 100 mcg tablet 100 mcg PO DAILY mirtazapine 45 mg tablet 45 mg PO QHS Changed lorazepam 1 MG tablet 0.5 mg PO QHS PRN (Reason: sleep) 3 Days Qty: 0 0RF Patient Comments: ANXIETY Discontinued meloxicam 15 MG tablet 15 mg PO DAILY Patient Comments: pain Referrals / Follow Up: Reginaldo Cool MD [Med Staff - Active Staff] - Within 2 Weeks Zuly Blas DO [Primary Care Provider] - Within 2 Weeks Disposition Disposition (needs filled in before D/C Order can be placed): [facility] Charges/Coding Visit Charges Inpatient E&M: 85192 Disch Hosp >30min
--- NOTE | 2023-11-18 13:32 | CASEMGMT ---
Social Work Precert has been obtained for pt to discharge to [facility]. Physician notified and pt is ready for dc today. 7000 exemption form completed in [facility]. DC family law legal assistant updated and to complete discharge. DELFINO Ybarra
--- NOTE | 2023-11-18 14:07 | CASEMGMT ---
Discharge Planning Discharge orders, signed med list, and transport time sent to [facility] via [facility]. Physicians will transport patient by wheelchair at 5:30p. Nursing, SW, patient, and her updated. Deirdre Elise DC Planning Asst.
[2023-11-18] MEDS: 0.9% Saline Lock 10 ML Syringe IV ×2 (14:49→16:38)
[2023-11-18] MEDS: Sodium Ferric Gluconat/Sucrose 250 MG in 0.9% Normal Saline (250mL Bag) 250 ML 135 MG IV (14:49)
--- NOTE | 2023-11-18 15:21 | PHA.DC.MR.R ---
Pharmacy [place] Med Reconciliation Pharmacy Service has performed discharge medication reconciliation for this patient. The patient's discharge medication list was reviewed for discrepancies and discrepancies were resolved. Medications at Discharge Home Medications omeprazole 20 mg capsule,delayed release 40 mg PO BID GERD 06/11/13 cholecalciferol (vitamin D3) 1,250 mcg (50,000 unit) capsule 50,000 units PO QWEEK supple 01/24/19 pravastatin 10 mg tablet 10 mg PO QHS cholesterol 01/24/19 liothyronine 5 mcg tablet 5 mcg PO DAILY hypothyroid 07/09/23 sertraline 100 mg tablet 150 mg PO DAILY depression 07/09/23 levothyroxine 100 mcg tablet 100 mcg PO DAILY hypothyroid 07/28/23 mirtazapine 45 mg tablet 45 mg PO QHS depression/anxiety 07/28/23 bupropion HCl 150 mg tablet,12 hr sustained-release 150 mg PO DAILY depression/anxiety 11/12/23 acetaminophen 500 mg tablet 1,000 mg (2 x 500 mg) PO Q8 #0 tabs 11/17/23 lorazepam 1 mg tablet 0.5 mg (1/2 x 1 mg) PO QHS PRN sleep 3 days #0 tabs 11/17/23 oxycodone 5 mg tablet 2.5 mg (1/2 x 5 mg) PO Q4H PRN PRN Pain Score 4-10 3 days #7 tabs 11/17/23 potassium chloride 20 mEq tablet,extended release(part/cryst) 40 meq (2 x 20 mEq) PO DAILYCM 7 days #14 tabs 11/17/23 rivaroxaban 10 mg tablet (Xarelto) 10 mg PO DINNER 30 days #30 tabs 11/17/23 sennosides 8.6 mg-docusate sodium 50 mg tablet (Stimulant Laxative Plus) 2 tab PO BID PRN PRN Constipation #0 tabs 11/17/23 ascorbic acid (vitamin C) 500 mg tablet 500 mg PO BID #60 tabs 11/18/23 ferrous sulfate 325 mg (65 mg iron) tablet (FeroSul) 325 mg PO DAILY 30 days #30 tabs 11/18/23
[2023-11-18] MEDS: Ondansetron 4 MG/2 ML Vial IV (16:38)
[2023-11-18] MEDS: Rivaroxaban 10 MG Tablet PO (16:38)
[2023-11-18 17:35] VITALS: BP 117/77; PULSE 96; RESP 18; TEMP 36.9; O2SAT 94
== END 2023-11-18 17:48 | DRG 481 ==
LOC: ED 15:05 → MS3 16:54
PROVIDERS: Orthopaedic Surgery Orthopaedic Surgery of the Spine; Student in an Organized Health Care Education/Training Program; Admitting Provider Internal Medicine; Emergency Provider Emergency Medicine; PCP Family Medicine; Visit Provider Internal Medicine
PROC: 0QS606Z Reposition Right Upper Femur with Intramedullary Internal Fixation Device, Open Approach (ICD-10-PCS; CPT 27245; principal; 2023-11-13 14:00)
DX: S72.141A Displaced intertrochanteric fracture of right femur, initial encounter for closed fracture (principal); D62 Acute posthemorrhagic anemia; J44.9 Chronic obstructive pulmonary disease, unspecified; E89.0 Postprocedural hypothyroidism; F32.A Depression, unspecified; K21.9 Gastro-esophageal reflux disease without esophagitis; F17.210 Nicotine dependence, cigarettes, uncomplicated; W17.89XA Other fall from one level to another, initial encounter; Z82.62 Family history of osteoporosis; Z80.0 Family history of malignant neoplasm of digestive organs; R53.81 Other malaise; Y93.E5 Activity, floor mopping and cleaning; Z85.038 Personal history of other malignant neoplasm of large intestine
CPT/HCPCS: 36415; 70450; 71045; 72125; 73501; 73502; 76000; 80048; 81002; 84443; 84484; 85025; 85610; 86850; 86900; 86901; 93005; 94668; 97162; 97166; 97530; 97535; 99283; 99406; C1713; C1776; J7030; J7050; J7120; A4216; J2405; J2916

== ENCOUNTER → 2023-12-23 | Outpatient (CLI) | payer MEDICARE, SELFPAY ==
[2023-12-23 17:31] LABS: Absolute Lymphocyte Count 1.12 X10^3/uL (0.83-4.51); Absolute Neutrophil Count 8.3 X10^3/uL (2.0-7.7); Basophil# 0.06 X10^3/uL; Basophil% 0.6 % (0-1); Eosinophil# 0.06 X10^3/uL; Eosinophils% 0.6 % (0-5); Hematocrit 38.9 % (37-47); Hemoglobin 11.8 g/dL (12.0-15.0); Lymphocyte # 1.12 X10^3/ul (0.83-4.51); Mean Corp Hgb Conc 30.3 g/dL (32-36); Mean Corpuscular Hgb 29.2 pg (27.0-32.0); Mean Corpuscular Volume 96.3 fL (81-99); Mean Platelet Vol. 10.8 fl (6.2-12.0); Monocyte% 5.9 % (0-10); NRBC Flagged by Analyzer 0 % (0-5); Neutrophil # 8.26 X10^3/uL (2.7-7.7); Neutrophil % 81.3 % (47-70); Platelet Count 277 K/mm3 (150-450); RBC Distribution Width CV 15.8 % (11.6-14.6); RBC Distribution Width SD 56.4 fl (35.1-43.9); Red Blood Count 4.04 M/mm3 (4.2-5.4); White Blood Count 10.2 K/mm3 (4.4-11.0)
[2023-12-23 18:05] LABS: ALB/GLOB Ratio 0.9 RATIO (0.9-2.4); AST(SGOT) 34 U/L (15-37); Alanine Aminotransfer ALT/SGPT 29 U/L (13-56); Albumin, Serum 3.2 g/dL (3.2-5.0); Alkaline Phosphatase 179 U/L (45-117); Anion Gap 6 (5-15); BUN 10 mg/dL (7-18); BUN/Creat Ratio 13.9 RATIO (10-20); Calcium,Total 9.4 mg/dL (8.5-10.1); Chloride 103 mmol/L (98-107); Creatinine, Serum 0.72 mg/dL (0.55-1.02); EST Glomerular Filtration Rate 83 mL/min (>60); Est Glom Filt Rate - Afr Amer 100 mL/min (>60); Ferritin 111 ng/mL (8-252); Globulin 3.7 g/dL (2.2-4.2); Glucose 94 mg/dL (74-106); Iron 26 ug/dL (50-170); Potassium 4.5 mmol/L (3.5-5.1); Protein, Total 6.9 g/dL (6.4-8.2); Sodium Level 135 mmol/L (136-145)
[2023-12-23 18:08] LABS: Vitamin B12 262 pg/mL (211-911)
== END | disposition home or self-care (01) ==
LOC: BFHLAB 14:16
PROVIDERS: PCP Family Medicine; Visit Provider Family Medicine
DX: D50.9 Iron deficiency anemia, unspecified (principal); E53.8 Deficiency of other specified B group vitamins; Z51.81 Encounter for therapeutic drug level monitoring
CPT/HCPCS: 36415; 80053; 82607; 82728; 83540; 85025

== ENCOUNTER → 2024-01-25 | Outpatient (CLI) | payer MEDICARE, SELFPAY ==
--- NOTE | 2024-01-25 13:44 | BI_ITS ---
MAMMOGRAPHY - BILATERAL SCREENING 3-D TOMOSYNTHESIS REASON FOR EXAM: Female, 78 years old. SCREENING PERTINENT HISTORY: No significant family history. TECHNIQUE: 2-D mammograms and 3-D Tomosynthesis of the breast (s) were performed. CAD was performed. COMPARISON: 01/22/2023 FINDINGS: The breast composition is heterogeneously dense that can obscure small breast masses. Scattered benign calcifications are seen. No dense spiculated masses or suspicious microcalcifications are identified. No architectural distortion is identified. There is no skin thickening or retraction. There has been no significant change since the prior study. BI/SCRN MAMM (CAD)W/JHONNY BILAT IMPRESSION: No mammographic signs of malignancy. Routine yearly mammograms recommended. ASSESSMENT CATEGORY: BIRADS Category 1: Negative. A letter regarding these results will be sent to the patient by the facility within 30 days. FOLLOW UP RECOMMENDATION: Yearly follow up mammogram recommended. (A) Approximately 10% of breast cancers are not detected by mammography. A normal mammogram should not delay biopsy of a clinically suspicious abnormality. Electronically Signed: Faustino Osullivan MD at 14:17 EDT ,
== END | disposition home or self-care (01) ==
LOC: OPBI 13:33
PROVIDERS: PCP Family Medicine; Referring Provider Family Medicine; Visit Provider Family Medicine
DX: Z12.31 Encounter for screening mammogram for malignant neoplasm of breast (principal)
CPT/HCPCS: 77063; 77067

== ENCOUNTER 2024-04-25 10:30 | Outpatient (RCR) | payer MEDICARE, SELFPAY ==
--- NOTE | 2024-02-24 10:19 | HP.PTEVAL ---
Patient's Visit Information Visit Information Visit Information: AMOS RIOS is a 78 year old F referred to Physical Therapy by Dr. Reginaldo Cool MD with a diagnosis of closed R hip fracture with surgery around 11/11. Date of Evaluation: 02/24/24 Physical Therapist: Tono Hirsch, DPT, OCS, CSCS Visit Plan Frequency: 2x /Week Duration: 4-6 Weeks Plan: 2x/week for 4-6 weeks for aquatic therapy for R hip , core and LE strength and gait training. progression to I silver sneakers or HEP. Doing SKC for hip flexion at home and standing hip abd and ext and march at home form HH. Subjective Subjective: Fractured my R hip on November 11 while standing on bed cleaning ceiling fan and fell off. Got too close to edge of bed, balance was good otherwise and no Ad needed then. Went to [facility] and had alla placed in R femur by Dr. Cool. Was having in home rehab since then and used walker for a short while. Now use cane to get around out and about and no AD at home. Pain in r groin if she oveerdoing with WB or driving which also bothers it. sitting too long can make it hurt. Needs UE to get out of chair. HEP: from Home health SLR standing and ROm. Lives with and 2 grandsons, Basic ADLs dressing and bathroom and shower in walk in shower I. Wants to help with sweeper but does not feel strong enough yet. Hobbies: leonie and adalberto dots are sedentary. Employed : retired. Spends day: hobbies: reading. No rpevious exercises. Pain R groin: Pain Intensity (Out of 10): 0 Pain Intensity Range: 0 and 4 Objective Objective: Walks back to PT with cane in L slightly hunched and slow with short L step length but mod I. Can ambulate with good balance without AD but R leg weakness apparent and R trendelenberg is noticable. Sit to stand requires UE but I. Stand to sit slow and I with UE. Bed transfer R LE requiring exctra time and effort. Steps prefers to use L and requires rails, can do r but weaker and less stable. AROM R hip 100 with some end range pain, ir 5 , er 45, no pain. extension 3 vs 8 on L. reflexes 2/3 patella and achilles Sensation LE WNL to gross light touch in B LE. [id number] is most noticeable deficit on R side hip flexion 3 vs 4- L, abduction 3 vs 3+ L, ext 3 vs 3+ L. knee flexion and ext is 3+ R and 4- L. ankles are 4- B. Blaance is good but weak and poor confidence on r side. Balance/Special Test Scores Functional Gait Assessment Score: 22 % Disability: 26.6700 Lower Extremity Functional Score: 10 Goals Goal 1:: Walks without gait deviations in community without AD safely Goal Time Frame: 4-6 Weeks Goal 2:: FGA score 24/30 Goal Time Frame: 4-6 Weeks Goal 3:: I appropriate HEP or silver sneakers to reduce deleterious effects of sedentary lifestyle Goal Time Frame: 4-6 Weeks Goal 4:: LEFS score 30 Goal Time Frame: 4-6 Weeks Goal 5:: exit chair without UE to get out of car easier. Goal Time Frame: 4-6 Weeks Rehabilitation Potential Physical Therapy Diagnosis: weakness r LE limiting mobility adn sconfidence. Rehabilitation Potential: Good Anticipated Interventions Patient/Client Instruction: Educate patient on: Condition, Plan of Care and Risk Factors For the Purpose of:: To decrease pain, To increase ROM, To improve muscle performance and motor function, To increase tolerance to activity/condition/position and To improve gait and locomotor functions Therapeutic Exercise to Include: Strength training, Flexibilty training, Gait and locomotor training and In an aquatic setting For the Purpose of:: To decrease pain, To increase ROM, To improve nutrient delivery to tissue, To improve muscle performance and motor function, To increase tolerance to activity/condition/position, To improve gait and locomotor functions and To improve safety Text: Thank you for the opportunity to evaluate your patient. For Medicare and Medicare HMO plans, please review the plan of care and approve it. It will need to be FAXED BACK to us at [phone] for Medicare purposes. For Medicare only, by signing this I certify the plan of care. Please let me know if there are questions or concerns regarding this plan of care. Physician Signature: Date:
--- NOTE | 2024-03-31 10:18 | HP.PTREVAL ---
Re-Evaluation Intro: Dr. Reginaldo Cool MD, It has been my pleasure to treat AMOS Dickens RIOS over the last 7 visits for closed R hip fracture with surgery around 11/11. Please see the progress note below for an update on the physical therapy plan of care! Subjective Subjective: Missed some visits due to not affording co-pay. The pool has helped her. she feels more mobile. Using cane to get around out and about and not at home. No falls. Hip is achy many days with weather but does not keep her from doing anything. Activitiesa at home are pretty nomral outside of running sweeper.Pt wants to continue in water and then join pool for exit strategy. Objective Objective/Function: Walking with slight R trendelneberg but I with and without cane . Steps reciprocally with one rail. FGA is improved. Not quite i in pool progressions yet. Plan Plan Plan: 2x/week for 3 more weeks for AT to teach and progress to ILE adn postural strength and balance and confidence with gait exercises and then d/c to I. No PT f/u needed unless condition changes. Balance/Gait/Functional tests Balance/Special Test Scores Functional Gait Assessment Score: 25 % Disability: 16.6700 Lower Extremity Functional Score: 23 Goals Goals Goal 1:: Walks without gait deviations in community without AD safely Goal Time Frame: 4-6 Weeks Goal Progress: Progressing Goal 2:: FGA score 24/30 Goal Time Frame: 4-6 Weeks Goal Progress: Goal Met Goal 3:: I appropriate HEP or silver sneakers to reduce deleterious effects of sedentary lifestyle Goal Time Frame: 4-6 Weeks Goal Progress: HEP, needs pool Goal 4:: LEFS score 30 Goal Time Frame: 4-6 Weeks Goal Progress: Progressing Goal 5:: exit chair without UE to get out of car easier. Goal Time Frame: 4-6 Weeks Goal Progress: Goal Met Anticipated Interventions Anticipated Interventions Patient/Client Instruction: Educate patient on: Condition, Plan of Care and Risk Factors For the Purpose of:: To decrease pain, To increase ROM, To improve muscle performance and motor function, To increase tolerance to activity/condition/position and To improve gait and locomotor functions Therapeutic Exercise to Include: Strength training, Flexibilty training, Gait and locomotor training and In an aquatic setting For the Purpose of:: To decrease pain, To increase ROM, To improve nutrient delivery to tissue, To improve muscle performance and motor function, To increase tolerance to activity/condition/position, To improve gait and locomotor functions and To improve safety Re-Evaluation Ending Re-evaluation ending: Please do not hesitate to contact me at [phone] by phone or if you have questions or concerns regarding this new plan of care! Sincerely, Tono Hirsch, DPT, OCS, CSCS
--- NOTE | 2024-04-25 14:24 | HP.PTDCSUM_ITS ---
Discharge Summary D/C summary: It has been my pleasure to treat AMOS RIOS referred by Dr. Reginaldo Cool MD, with the diagnosis of closed R hip fracture with surgery around 11/11 for a total of 13 visit(s). Discharge Date: 04/25/24 Please see the following information for a summary of their discharge status. Subjective Subjective: Pt noting hip is maybe a 1 today for pain. Pt noting she has not been able to do UE exs over the last couple of days d/t swelling in the hand (which pt notes happens from time to time). Pt noting some muscle soreness following previous visit but notes it was not bad. Pain R groin: Pain Intensity (Out of 10): 2 R hip: Pain Intensity (Out of 10): 1 Overall Improvement % Improvement: 70 Objective Objective/Function: Pt completed lateral step ups today at pool steps for increased WBing and challenge with pt using HR for balance. Pt has visibly more difficulty with the LLE vs RLE today with lateral step ups. With all step ups pt needing min VCs for upright posturing with head and chest up and to avoid looking at feet. 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 Added lateral band walks today with pt tolerating all well. Given pictures of this for pt to do at home or in pool. Lastly, pt completed STS from pool chair with increased reps today with pt needing min VCs to avoid valgus at knees which pt struggles with even after cues given but slightly less incicdence of valgus noted following cues. Pt given GTB in additional to OTB she has at home. No questions at this time. Goals Goal 1:: Walks without gait deviations in community without AD safely Goal Progress: Progressing Goal 2:: FGA score 24/30 Goal Progress: Goal Met Goal 3:: I appropriate HEP or silver sneakers to reduce deleterious effects of sedentary lifestyle Goal Progress: HEP, needs pool Goal 4:: LEFS score 30 Goal Progress: Progressing Goal 5:: exit chair without UE to get out of car easier. Goal Progress: Goal Met Plan Plan: d/c to I program per most recent POC D/C Information Discharge Comments: Pt has completed therapy and will be discharged per most recent POC. d/c sentence: If there are questions or concerns regarding this patient's physical therapy, please feel free to call me at [phone]. Thank you for the referral of this patient. Sincerely, Tono Hirsch, DPT, OCS, CSCS Balance/Gait/Functional tests Balance/Special Test Scores Functional Gait Assessment Score: 25 % Disability: 16.6700 Lower Extremity Functional Score: 23 Improvement % Improvement: 70
== END 2024-04-25 19:00 | disposition home or self-care (01) ==
LOC: PT 10:30
PROVIDERS: PCP Family Medicine; Referring Provider Orthopaedic Surgery Orthopaedic Surgery of the Spine; Visit Provider Orthopaedic Surgery Orthopaedic Surgery of the Spine
DX: S72.001S Fracture of unspecified part of neck of right femur, sequela (principal); R29.898 Other symptoms and signs involving the musculoskeletal system
CPT/HCPCS: 97113; 97161

== ENCOUNTER → 2024-07-25 | Outpatient (CLI) | payer MEDICARE, SELFPAY ==
[2024-07-25 12:48] LABS: Absolute Lymphocyte Count 1.41 X10^3/uL (0.83-4.51); Absolute Neutrophil Count 3.3 X10^3/uL (2.0-7.7); Basophil# 0.08 X10^3/uL; Basophil% 1.4 % (0-1); Eosinophil# 0.51 X10^3/uL; Eosinophils% 8.7 % (0-5); Hematocrit 38.9 % (37-47); Hemoglobin 12.9 g/dL (12.0-15.0); Lymphocyte # 1.41 X10^3/ul (0.83-4.51); Lymphocyte % 24.1 % (19-41); Mean Corp Hgb Conc 33.2 g/dL (32-36); Mean Corpuscular Volume 93.5 fL (81-99); Mean Platelet Vol. 10.2 fl (6.2-12.0); Monocyte# 0.49 X10^3/uL; Monocyte% 8.4 % (0-10); NRBC Flagged by Analyzer 0 % (0-5); Neutrophil # 3.34 X10^3/uL (2.7-7.7); Neutrophil % 56.9 % (47-70); Platelet Count 218 K/mm3 (150-450); RBC Distribution Width CV 14.9 % (11.6-14.6); RBC Distribution Width SD 51.4 fl (35.1-43.9); Red Blood Count 4.16 M/mm3 (4.2-5.4); White Blood Count 5.9 K/mm3 (4.4-11.0)
[2024-07-25 13:13] LABS: ALB/GLOB Ratio 1.3 RATIO (0.9-2.4); AST(SGOT) 37 U/L (<=31); Alanine Aminotransfer ALT/SGPT 28 U/L (<=34); Alkaline Phosphatase 199 U/L (35-104); Anion Gap 9 (5-15); BUN 12 mg/dL (4-19); BUN/Creat Ratio 12.9 RATIO (10-20); Calcium,Total 9.1 mg/dL (7.6-11.0); Carbon Dioxide 25.3 mmol/L (21.0-32.0); Chloride 99 mmol/L (98-108); Creatinine, Serum 0.93 mg/dL (0.70-1.20); EST Glomerular Filtration Rate 62 (>60); Free T3 2.3 pg/mL (2.18-3.98); Globulin 3.1 g/dL (2.2-4.2); Glucose 91 mg/dL (70-99); Sodium Level 132 mmol/L (133-145); Total Bilirubin 0.33 mg/dL (0.00-1.30)
== END | disposition home or self-care (01) ==
LOC: BFHLAB 10:00
PROVIDERS: PCP Family Medicine; Visit Provider Family Medicine
DX: E03.9 Hypothyroidism, unspecified (principal); Z51.81 Encounter for therapeutic drug level monitoring
CPT/HCPCS: 36415; 80053; 84439; 84443; 84481; 85025

== ENCOUNTER → 2024-10-31 | Outpatient (CLI) | payer MEDICARE, SELFPAY ==
[2024-10-31 16:40] LABS: Free T3 2.3 pg/mL (2.18-3.98)
[2024-10-31 16:48] LABS: AST(SGOT) 30 U/L (<=31); Alanine Aminotransfer ALT/SGPT 13 U/L (<=34); Albumin, Serum 3.8 g/dL (3.4-4.8); Alkaline Phosphatase 166 U/L (35-104); Anion Gap 12 (5-15); BUN 11 mg/dL (4-19); BUN/Creat Ratio 13.0 RATIO (10-20); Calcium,Total 9.4 mg/dL (7.6-11.0); Carbon Dioxide 21.1 mmol/L (21.0-32.0); Chloride 99 mmol/L (98-108); Globulin 3.1 g/dL (2.2-4.2); Glucose 117 mg/dL (70-99); Potassium 4.6 mmol/L (3.3-5.1)
--- OUTSIDE RECORDS SUMMARY | 2024-10-31 20:57 | XMS RPT_ITS | CCD ---
Author Organization [facility] Care Team Providers Care Frontload Driver Name Role Phone Dr. Zuly Blas Primary Care Provider Dr. Tanya Brennan Attending Provider Dr. Kaushik Posada Referring Provider Dr. Zuly Blas Primary Care Provider Dr. Zuly Blas Referring Provider Dr. Gareth Steven Attending Provider FELIPE Newton Attending Provider Dr. Gareth Steven Other Provider Dr. Ervin Darling Attending Provider Dr. Ervin Darling Other Provider FELIPE Newton Referring Provider Unavailable Primary Care Provider Unavailabl e ADEOLA, CHASITY Referring Unavailable ADEOLA, CHASITY Referring Unavailable ADEOLA, CHASITY Referring Unavailable ADEOLA, CHASITY Referring Unavailable Zuly Blas DO Primary Care Provider ADEOLA, CHASITY Attending Unavailable ADEOLA, CHASITY Referring Unavailable LIZZ KING Attending Unavailable ROOPA, ZULY A Primary Care Unavailable ADEOLA, CHASITY Referring Unavailable Dr. Zuly Blas DO Primary Care Provider Travon SCHUMACHER, Dr. Hair Attending Provider Dr. Reginaldo Cool MD Referring Provider Dr. Zuly Blas DO Referring Provider Candace SCHUMACHER, Dr. Patel Attending Provider [phone] Zuly lBas DO Attending Provider [phone] Malys, Zuly Primary Care Unavailable Cool, Reginaldo Referring Unavailable Cool, Reginaldo Attending Unavailable Malys, Zuly Primary Care Unavailable Malys, Zuly Attending Unavailable Malys, Zuly Primary Care Unavailable Oleghe, Efewongbe Attending Unavailable Oleghe, Efewongbe Referring Unavailable Malys, Zuly Primary Care Unavailable Khang Gardner Attending Unavailable Liliane Badillo Admitting Unavailable Meek Mancuso Consulting Unavailable Carmenil, [place] Consulting Unavailable Daniella Baum Consulting Unavailable Amena Walters Consulting Unavailable Clint Mathews Consulting Unavailable Clint Machado Consulting Unavailable Tono Bhagat Consulting Unavailable Jasmin Darlingjen Consulting Unavailable Sachin Smith Consulting Unavailable Lulu Shaw Consulting Unavailable Tani Schneider Consulting Unavailable Nestor, Dayan Kaylie Consulting Unavailable Hosea Heller Consulting Unavailable Khang Gardner Consulting Unavailable Jamil Patel Consulting Unavailable Liliane Badillo Consulting Unavailable Mukul Casey Consulting Unavailable Malys, Zuly Referring Unavailable Malys, Zuly Primary Care Unavailable Malys, Zuly Attending Unavailable Malys, Zuly Primary Care Unavailable Mac Newton Referring Unavailable Oleghe, Efewongbe Attending Unavailable Malys, Zuly Primary Care Unavailable Mac Newton Referring Unavailable Oleghe, Efewongbe Attending Unavailable Malys, Zuly Primary Care Unavailable Mac Newton Referring Unavailable Mac Newton Attending Unavailable Mac Newton Referring Unavailable Oleghe, Efewongbe Attending Unavailable Malys, Zuly Primary Care Unavailable Mac Newton Referring Unavailable Oleghe, Efewongbe Attending Unavailable Oleghe, Efewongbe Consulting Unavailable Malys, Zuly Primary Care Unavailable Koram, Dayan Kaylie Attending Unavailable Malys, Zuly Primary Care Unavailable Jorge Maria Attending Unavailable Malys, Zuly Referring Unavailable Malys, Zuly Primary Care Unavailable Cool, Reginaldo Attending Unavailable Travon Reginaldo Attending Unavailable Mac Newton Referring Unavailable Oleghe, Efewongbe Consulting Unavailable Oleghe, Efewongbe Attending Unavailable Malys, Zuly Primary Care Unavailable Oleghe, Efewongbe Consulting Unavailable Oleghe, Efewongbe Attending Unavailable Mac Newton Referring Unavailable Malys, Zuly Primary Care Unavailable Khang Gardner Attending Unavailable Liliane Badillo Admitting Unavailable Meek Mancuso Consulting Unavailable Malys, Zuly Primary Care Unavailable Paintsil, [place] Consulting Unavailable Bautista Achintya Consulting Unavailable Amena Walters Consulting Unavailable Clint Mathews Consulting Unavailable Clint Machado Consulting Unavailable Tono Bhagat Consulting Unavailable OnealeDavidn Consulting Unavailable Sachin Smith Consulting Unavailable Lulu Shaw Consulting Unavailable Tani Schneider Consulting Unavailable Dayan Baez Consulting Unavailable Hosea Heller Consulting Unavailable Khang Gardner Consulting Unavailable Jamil Patel Consulting Unavailable Liliane Badillo Consulting Unavailable Mukul Casey Consulting Unavailable Malys, Zuly Primary Care Unavailable MARLA WILL Referring Unavailable Malys, Zuly Attending Unavailable Malys, Zuly Primary Care Unavailable Mac Newton Referring Unavailable Oleghe, Efewongbe Attending Unavailable Oleghe, Efewongbe Consulting Unavailable Malys, Zuly Attending Unavailable Malys, Zuly Referring Unavailable Malys, Zuly Primary Care Unavailable Malys, Zuly Primary Care Unavailable Mac Newton Referring Unavailable Oleghe, Efewongbe Attending Unavailable Oleghe, Efewongbe Consulting Unavailable Mac Newton Referring Unavailable Oleghe, Efewongbe Attending Unavailable Oleghe, Efewongbe Consulting Unavailable Malys, Zuly Primary Care Unavailable Mac Newton Referring Unavailable Oleghe, Efewongbe Attending Unavailable Oleghe, Efewongbe Consulting Unavailable Malys, Zuly Primary Care Unavailable Mac Newton Referring Unavailable Oleghe, Efewongbe Attending Unavailable Oleghe, Efewongbe Consulting Unavailable Malys, Zuly Primary Care Unavailable Malys, Zuly Primary Care Unavailable Jorge Maria Attending Unavailable Malys, Zuly Primary Care Unavailable Malys, Zuly Referring Unavailable Reginaldo Cool Attending Unavailable Malys, Zuly Referring Unavailable Malys, Zuly Primary Care Unavailable Mac Newton Attending Unavailable Malys, Zuly Referring Unavailable Malys, Zuly Primary Care Unavailable Gareth Steven Attending Unavailable Malys, Zuly Primary Care Unavailable CandaceJorge tilley Attending Unavailable Malys, Zuly Primary Care Unavailable Ervin Darling Attending Unavailable Malys, Zuly Referring Unavailable Malys, Zuly Primary Care Unavailable Lisette Lima Attending Unavailable Malys, Zuly Primary Care Unavailable Jorge Maria Attending Unavailable Malys, Zuly Referring Unavailable Malys, Zuly Primary Care Unavailable Reginaldo Cool Attending Unavailable Liliane Badillo Attending Unavailable Liliane Badillo Admitting Unavailable Liliane Badillo Consulting Unavailable Malys, Zuly Primary Care Unavailable Khang Gardner Referring Unavailable Allergies Allergy Classification Reported Allergen(s) Allergy Type Date of Onset Reaction(s) Facility (20 sources) Sulfonamides (Antibiotic); Translations: [SULFA (SULFONAMIDE ANTIBIOTICS)] Allergy to substance 5 Hives, GI Upset, Vomiting [facility] (16 sources) Propoxyphene; Translations: [PROPOXYPHENE HCL] Drug Allergy 5 GI Upset [facility] (16 sources) Propoxyphene N-Acetaminophen; Translations: [PROPOXYPHENE N-ACETAMINOPHEN] Propensity to adverse reactions 5 GI Upset, Vomiting [facility] Work Phone: Medications Current Medications Medication Drug Class(es) Dates Sig (Normalized) Sig (Original) acetaminophen 500 mg oral tablet (1 source) Start: 11-17-2023 take 2 tablets by mouth every eight hours Acetaminophen 500 mg Tablet Active 1000 mg PO EVERY 8 HOURS 0 November 17, 2023 12:00am ascorbic acid 500 mg oral tablet (1 source) Vitamin C Start: 11-18-2023 take 1 tablet by mouth twice daily Ascorbic Acid (Vitamin C) 500 mg tablet Active 500 mg PO TWICE A DAY 60 November 18, 2023 12:00am 12 hr buPROPion hydrochloride 150 mg extended release oral tablet (8 sources) Aminoketone Start: 11-12-2023 take 1 tablet by mouth once daily Bupropion Hcl 150 mg tablet sustained-release 12 hr Active 150 mg PO DAILY November 12, 2023 12:00am take 1 tablet by mouth once roxie y buPROPion XL (WELLBUTRIN XL) 150 mg 24 hr tablet Take 150 mg by mouth once daily. Active Calcium Carbonate / vitamin D3 (14 sources) CALCIUM CARBONAT E/VITAMIN D3 (CALCIUM + D ORAL) Take by mouth. Active CALCIUM CARBONAT E/VITAMIN D3 (CALCIUM + D ORAL) Take by mouth. 0 Active cholecalciferol 1.25 mg oral capsule (17 sources) Vitamin D Start: 01-24-2019 take 1 capsule by mouth every week Cholecalciferol (Vitamin D3) 50,000 UNIT capsule Active 17555 U PO EVERY WEEK January 24, 2019 12:00am docusate sodium 50 mg / sennosides, half-way 8.6 mg oral tablet (1 source) Start: 11-17-2023 Sennosides-Docusate Sodium (Stimulant Laxative Plus) 8.6-50 mg Tablet Active 2 {tbl} PO TWICE DAILY NEEDED as needed for Constipation November 17, 2023 12:00am ferrous sulfate 325 mg oral tablet (1 source) Start: 11-18-2023 take 1 tablet by mouth once daily Ferrous Sulfate (Ferosul) 325 mg (65 mg iron) tablet Active 325 mg PO DAILY November 18, 2023 12:00am ibuprofen 200 mg oral tablet (14 sources) Nonsteroidal Anti-inflammatory Drug Start: 07-29-2005 ADVIL 200 MG TAB as necessary 0 07/29/2005 Active levothyroxine sodium 0.1 mg oral tablet (20 sources) l-Thyroxine Start: 07-28-2023 take 1 tablet by mouth once daily Levothyroxine 100 mcg tablet Active 100 ug PO DAILY July 28, 2023 12:00am Start: 07-09-2023 End: 07-28-2023 Levothyroxine 125 mcg tablet Discontinued 100 ug PO DAILY July 09, 2023 9:05am July 28, 2023 9:47am Start: 07-09-2023 End: 07-28-2023 take 100 ug by mouth once daily Levothyroxine Discontinued 100 MCG PO DAILY July 09, 2023 9:05am July 28, 2023 9:47am Start: 06-11-2013 End: 07-09-2023 take 1 tablet by mouth once daily Levothyroxine 125 MCG tablet Discontinued 125 ug PO DAILY June 11, 2013 1:00am July 09, 2023 9:08am liothyronine sodium 0.005 mg oral tablet (6 sources) l-Triiodothyronine Start: 07-09-2023 take 1 tablet by mouth once daily Liothyronine 5 mcg tablet Active 5 ug PO DAILY July 09, 2023 12:00am methocarbamol 500 mg oral tablet (1 source) Muscle Relaxant Start: 12-25-2023 take 1 tablet by mouth three times daily Methocarbamol 500 mg tablet Active 500 mg PO THREE TIMES A DAY December 25, 2023 12:00am mirtazapine 45 mg oral tablet (20 sources) Start: 07-28-2023 take 1 tablet by mouth at bedtime Mirtazapine 45 mg tablet Active 45 mg PO AT BEDTIME July 28, 2023 12:00am Start: 03-18-2014 End: 07-28-2023 take 3 tablets by mouth at bedtime Mirtazapine 15 MG tablet Discontinued 45 mg PO AT BEDTIME March 18, 2014 1:00am July 28, 2023 9:47am Start: 03-18-2014 End: 07-28-2023 take 45 mg by mouth at bedtime Mirtazapine Discontinue d 45 MG PO AT BEDTIME March 18, 2014 1:00am July 28, 2023 9:47am Start: 09-05-2008 MIRTAZAPINE 15 MG TAB Take one(1) tablet daily at bedtime. 30 0 09/05/2008 Active multivitamin ORAL tablet (14 sources) take 2 tablets by mo ut once daily multivitamin ORAL tablet Take 2 tablets by mouth once daily. Active take 2 tablets by mouth once [place] multivitamin ORAL tablet Take 2 tablets by mouth once daily. 0 Active pantoprazole 40 mg delayed release oral tablet (1 source) Proton Pump Inhibitor Start: 11-27-2023 take 1 tablet by mouth once daily Pantoprazole 40 mg tablet,delayed release (DR/EC) Active 40 mg PO DAILY November 27, 2023 12:00am PARoxetine mesylate 20 mg oral tablet (8 sources) Serotonin Reuptake Inhibitor Start: 06-11-2013 take 30 mg by mouth once daily Paroxetine Hcl Active 30 MG PO DAILY June 11, 2013 10:34pm Start: 01-20-2006 End: 11-10-2023 PAXIL 20 MG TAB Take one(1) tablet daily. 0 01/20/2006 11/10/2023 Discontinued (Course of therapy completed) microencapsulated potassium chloride 20 meq extended release oral tablet (1 source) Start: 11-17-2023 take 2 tablets by mouth once daily at mealtime Potassium Chloride 20 mEq Tablet,Er Particles/Crystals Active 40 meq PO DAILY WITH MEALS 14 November 17, 2023 12:00am pravastatin sodium 10 mg oral tablet (20 sources) HMG-CoA Reductase Inhibitor Start: 01-24-2019 take 1 tablet by mouth at bedtime Pravastatin 10 MG tablet Active 10 mg PO AT BEDTIME January 24, 2019 12:00am rivaroxaban 10 mg oral tablet (1 source) Factor Xa Inhibitor Start: 11-17-2023 take 1 tablet by mouth at dinner Rivaroxaban (Xarelto) 10 mg Tablet Active 10 mg PO WITH DINNER 30 November 17, 2023 12:00am sertraline 100 mg oral tablet (20 sources) Serotonin Reuptake Inhibitor Start: 07-09-2023 Sertraline 100 mg tablet Active 150 mg PO DAILY July 09, 2023 9:07am Start: 07-09-2023 take 150 mg by mouth once roxie y Sertraline Active 150 MG PO DAILY July 09, 2023 9:07am Start: 09-17-2021 End: 07-09-2023 take 1 tablet by mouth once daily Sertraline 100 mg Tablet Discontinued 100 mg PO DAILY September 17, 2021 12:00am July 09, 2023 9:08am Vitamin B Complex (14 sources) VITAMIN B COMPLE X (B-COMPLEX ORAL) Take by mouth. Active VITAMIN B COMPLE X (B-COMPLEX ORAL) Take by mouth. 0 Active Vitamin [id number] B1 1,000 -100 mg/mL solution (1 source) Start: 02-12-2024 Vitamin B12-Vi tamin B1 1,000-100 mg/mL solution Active mL IM February 12, 2024 12:00am Unsure of dose Completed/Discontinued Medications Medication Drug Class(es) Dates Sig (Normalized) Sig (Original) acetaminophen 325 mg / HYDROcodone bitartrate 5 mg oral tablet (17 sources) Opioid Agonist Start: 06-11-2013 End: 06-14-2013 Hydrocodone-Acetami nophen 1 TABLET tablet Discontinued 1 {tbl} PO EVERY 4 HOURS NEEDED as needed for Pain June 11, 2013 1:00am June 14, 2013 4:00pm Start: 06-11-2013 End: 06-14-2013 take 1 tablet by mouth every four hours as needed Hydrocodone-Acetaminophen Discontinued 1 TABLET PO EVERY 4 HOURS NEEDED June 11, 2013 1:00am June 14, 2013 4:00pm amoxicillin 875 mg / clavulanate 125 mg oral tablet (6 sources) Penicillin-class Antibacterial Start: 07-27-2023 End: 08-11-2023 Amoxicillin-Pot Clavulanate 875-125 mg tablet Discontinued 1 {tbl} PO TWICE A DAY July 27, 2023 12:00am August 11, 2023 7:57am Start: 07-27-2023 End: 08-11-2023 take 1 tablet by mouth twice daily Amoxicillin-Pot Clavulanate Discontinued 1 TABLET PO TWICE A DAY July 27, 2023 12:00am August 11, 2023 7:57am atorvastatin 20 mg oral tablet (17 sources) HMG-CoA Reductase Inhibitor Start: 02-06-2017 End: 01-10-2019 take 1 tablet by mouth at bedtime Atorvastatin 20 MG tablet Discontinued 20 mg PO AT BEDTIME February 06, 2017 12:00am January 10, 2019 1:09pm azithromycin 250 mg oral tablet (10 sources) Macrolide Antimicrobial Start: 08-04-2022 End: 07-09-2023 take 2-5 tablets by mouth once daily Azithromycin 250 mg tablet Discontinued 0 PO .COMPLEX August 04, 2022 12:00am July 09, 2023 9:05am take 500 mg today (day 1), then 250 mg for 4 days (days 2-5) PO doxycycline monohydrate 100 mg oral capsule (4 sources) Tetracycline-class Drug Start: 08-05-2023 End: 11-12-2023 take 1 capsule by mouth twice daily Doxycycline Monohydrate 100 mg capsule Discontinued 100 mg PO TWICE A DAY August 05, 2023 12:00am November 12, 2023 5:06pm LORazepam 1 mg oral tablet (20 sources) Benzodiazepine Start: 11-17-2023 End: 12-03-2023 take 0.5 mg by mouth at bedtime as needed for sleep Lorazepam 1 mg tablet Discontinued 0.5 mg PO AT BEDTIME as needed for sleep 01 17November 26, 2023 11:55am December 02, 2023 12:00am December 03, 2023 12:04am Start: 12-20-2012 End: 11-17-2023 take 1 tablet by mouth at bedtime Lorazepam 1 MG tablet Discontinued 1 mg PO AT BEDTIME June 11, 2013 1:00am November 17, 2023 2:03pm meloxicam 15 mg oral tablet (20 sources) Nonsteroidal Anti-inflammatory Drug Start: 06-12-2013 End: 11-18-2023 take 1 tablet by mouth once daily Meloxicam 15 MG tablet Discontinued 15 mg PO DAILY June 12, 2013 1:00am November 18, 2023 12:58pm methylPREDNISolone 4 mg oral tablet (10 sources) Corticosteroid Start: 08-04-2022 End: 08-10-2022 take 1 tablet by mouth once Methylprednisolone (Medrol (Melvin)) 4 mg tablets,dose pack Discontinued 4 mg PO per package directions 01 10August 04, 2022 12:00am August 09, 2022 12:00am August 10, 2022 12:04am metroNIDAZOLE 500 mg oral tablet (4 sources) Nitroimidazole Antimicrobial Start: 08-05-2023 End: 11-12-2023 take 1 tablet by mouth three times daily Metronidazole 500 mg tablet Discontinued 500 mg PO THREE TIMES A DAY August 05, 2023 12:00am November 12, 2023 5:07pm stop previously prescribed amoxicillin/clavulan ate (Augmentin) omeprazole 20 mg delayed release oral capsule (20 sources) Proton Pump Inhibitor Start: 06-11-2013 End: 11-27-2023 take 2 capsules by mouth twice daily Omeprazole 20 MG capsule Discontinued 40 mg PO TWICE A DAY June 11, 2013 1:00am November 27, 2023 1:45pm Start: 06-11-2013 take 40 mg by mouth twice roxie y Omeprazole Active 40 MG PO TWICE A DAY June 11, 2013 1:00am Start: 06-11-2013 take 40 mg by mouth once daily Omeprazole Active 40 MG PO DAILY June 11, 2013 12:00am Start: 09-05-2008 omeprazole mag nesium(PRILOSEC OTC 20 MG TAB) Take two tablets daily. 0 09/05/2008 Active oxyCODONE hydrochloride 5 mg oral tablet (2 sources) Opioid Agonist Start: 11-27-2023 End: 12-04-2023 take 1 tablet by mouth every six hours as needed for pain Oxycodone 5 mg tablet Discontinued 5 mg PO EVERY 6 HOURS as needed for pain 07 11November 27, 2023 December 03, 2023 12:00am December 04, 2023 12:06am Start: 11-17-2023 End: 02-12-2024 Oxycodone 5 mg Tablet Discon tinued 2.5 mg PO EVERY 4 HOURS NEEDED as needed for Pain Score 4-10 7 3 November 17, 2023 February 12, 2024 10:52am Oxycodone 2.5 mg for moderate pain and 5 mg for severe pain respectively. Problems Active Problems Problem Classification Problem Date Documented Da te Episodic/Chronic Abdominal hernia (14 sources) Hiatal hernia; Translations: [Diaphragmatic hernia without obstruction or gangrene] Onset: 4 08-11-2023 Episodic Acute bronchitis (10 sources) Acute bronchitis; Translations: [Acute bronchitis, unspecified] 08-04-2022 Episodic Cancer of colon (14 sources) Malignant tumor of ascending colon; Translations: [Malignant neoplasm of ascending colon] Onset: 1 12-03-2010 Chronic Disorders of lipid metabolism (3 sources) Hyperlipidemia; Translations: [Hyperlipidemia, unspecified] Onset: 4 10-28-2023 Chronic Esophageal disorders (19 sources) Gastroesophageal reflux disease without esophagitis; Translations: [Gastro-esophageal reflux disease without esophagitis] Onset: 1 10-28-2023 Chronic Fracture of neck of femur (hip) (8 sources) Closed intertrochanteric fracture; Translations: [Displaced intertrochanteric fracture of right femur, initial encounter for closed fracture] Onset: 4 11-26-2023 Episodic Mood disorders (2 sources) Depressive disorder; Translations: [Depression, unspecified depression type] 10-28-2023 Chronic Mood disorders (1 source) Mood disorders; Translations: [Depression, unspecified depression type] Onset: 4 Non-Hodgkin`s 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 sources) 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; 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, lymph nodes of multiple sites] Onset: 5 10-22-2023 Chronic Osteoporosis (1 source) Age-related osteoporosis without current pathological fracture; Translations: [Age-related osteoporosis without current pathological fracture] Onset: 4 Chronic Other acquired deformities (2 sources) Leg length inequality; Translations: [Unequal limb length (acquired), unspecified site] 06-02-2024 Episodic Other connective tissue disease (17 sources) History of osteoporosis; Translations: [Personal history of other diseases of the musculoskeletal system and connective tissue] 04-18-2013 Episodic Other connective tissue disease (10 sources) H/O: arthritis; Translations: [Personal history of other diseases of the musculoskeletal system and connective tissue] 12-08-2022 Episodic Other diseases of veins and lymphatics (4 sources) Peripheral venous insufficiency; Translations: [Venous insufficiency (chronic) (peripheral)] 08-06-2023 Episodic Other gastrointestinal disorders (17 sources) History of gastroesophageal reflux disease; Translations: [Personal history of other diseases of the digestive system] 04-18-2013 Episodic Other gastrointestinal disorders (2 sources) Esophageal dysphagia; Translations: [Other dysphagia] 10-28-2023 Episodic Other injuries and conditions due to external causes (13 sources) Foreign body in ear; Translations: [Foreign body in ear, unspecified ear, initial encounter] 03-22-2022 Episodic Other lower respiratory disease (17 sources) History of chronic obstructive airway disease; Translations: [Personal history of other diseases of the respiratory system] 04-18-2013 Episodic Other non-traumatic joint disorders (10 sources) Ankle pain; Translations: [Pain in left ankle and joints of left foot] 12-08-2022 Episodic Residual codes; unclassified (4 sources) Tobacco user; Translations: [Tobacco use] 08-06-2023 Episodic Substance-related disorders (20 sources) Tobacco dependence syndrome; Translations: [Nicotine dependence, unspecified, uncomplicated] Onset: 4 04-18-2013 Chronic Thyroid disorders (20 sources) Acquired hypothyroidism; Translations: [Hypothyroidism, unspecified] Onset: 7 04-18-2013 Chronic Past or Other Problems Problem Classification Problem Date Documented Da te Episodic/Chronic Cancer of colon (20 sources) History of malignant neoplasm of colon; Translations: [Personal history of other malignant neoplasm of large intestine] Onset: 2 07-09-2023 Episodic Deficiency and other anemia (15 sources) Iron deficiency anemia; Translations: [Iron deficiency anemia, unspecified] Onset: 1 09-16-2010 Episodic Deficiency and other anemia (1 source) Other iron deficiency anemias; Translations: [Other iron deficiency anemia] Onset: 1 Episodic Deficiency and other anemia (1 source) Iron deficiency anemia, unspecified; Translations: [Iron deficiency anemia, unspecified] Onset: 4 Episodic E Codes: Natural/environment (2 sources) Bitten by cat, initial encounter; Translations: [Bitten by cat, initial encounter] Onset: 4 Episodic Gastritis and duodenitis (14 sources) Bile-induced gastritis; Translations: [Other gastritis without bleeding] Onset: 6 12-28-2015 Episodic Nausea and vomiting (10 sources) Postoperative nausea and vomiting; Translations: [Nausea with vomiting, unspecified] Onset: 4 11-10-2023 Episodic Open wounds of extremities (20 sources) Cat bite - wound; Translations: [Open bite, left lower leg, initial encounter] Onset: 4 07-27-2023 Episodic Other aftercare (1 source) Encounter for other orthopedic aftercare; Translations: [Encounter for other orthopedic aftercare] Onset: 4 Episodic Other diseases of veins and lymphatics (4 sources) Venous insufficiency (chronic) (peripheral); Translations: [Venous (peripheral) insufficiency, unspecified] Onset: 4 08-06-2023 Episodic Other gastrointestinal disorders (6 sources) Personal history of other diseases of the digestive system; Translations: [Personal history of other diseases of digestive system] Onset: 4 07-09-2023 Episodic Other gastrointestinal disorders (1 source) Other dysphagia; Translations: [Esophageal dysphagia] Onset: 4 Episodic Other injuries and conditions due to external causes (1 source) Other injury of unspecified body region, initial encounter; Translations: [Other injury of unspecified body region, initial encounter] Onset: 4 Episodic Other lower respiratory disease (4 sources) Personal history of other diseases of the respiratory system; Translations: [Personal history of other diseases of respiratory system] Onset: 4 08-06-2023 Episodic Other nutritional; endocrine; and metabolic disorders (15 sources) Weight loss; Translations: [Abnormal weight loss] Onset: 1 09-16-2010 Episodic Other nutritional; endocrine; and metabolic disorders (1 source) Abnormal weight loss; Translations: [Loss of weight] Onset: 1 Episodic Other screening for suspected conditions (not mental disorders or infectious disease) (1 source) Encounter for screening mammogram for malignant neoplasm of breast; Translations: [Encounter for screening mammogram for malignant neoplasm of breast] Onset: 4 Episodic Residual codes; unclassified (4 sources) Tobacco use; Translations: [Tobacco use disorder] Onset: 4 08-06-2023 Episodic Residual codes; unclassified (14 sources) Family history of malignant neoplasm of gastrointestinal tract; Translations: [Family history of malignant neoplasm of digestive organs] Onset: 1 09-16-2010 Episodic Residual codes; unclassified (1 source) Other specified postprocedural states; Translations: [PONV (postoperative nausea and vomiting)] Onset: 4 Episodic Screening and history of mental health and substance abuse codes (18 sources) H/O: depression; Translations: [Personal history of other mental and behavioral disorders] Onset: 4 04-18-2013 Episodic Results Test Name Value Interpretation Reference Range Facility Absolute neutrophil countOrd ered By: Zuly Blas on 07-25-2024 Neutrophils (Bld) [#/Vol] 3.3 10*3/uL 2.0-7.7 [facility] Anion gap in Serum or Plasma Ordered By: Zuly Blas on 07-25-2024 Anion gap [Moles/Vol] 9 mmol/L 5-15 [place] BUN/creatinine ratioOrdered By: Zuly Blas on 07-25-2024 Urea nitrogen/Creatinine [Mass ratio] 12.9 mg/mg 10-20 [facility] Basophil percentageOrdered B y: Zuly Blas on 07-25-2024 Basophils/100 WBC (Bld) 1.4 % High 0-1 [facility] Bilirubin, totalOrdered By: Zuly Blas on 07-25-2024 Bilirubin [Mass/Vol] 0.33 mg/dL 0.00-1.30 [facility] CBC W/Diff, Automatedon 07-12 Absolute Lymph 1.41 X10 3/uL Normal 0.83-4.51 [facility] Comment on above: Performed By: #### L 501.63910, L501.9520, L500.4050, L100.0100, L506.0400 ####[facility] [address] [place], [address] Absolute Neut 3.3 X10 3/uL Normal 2.0-7.7 [facility] Comment on above: Performed By: #### L 501.86246, L501.9520, L500.4050, L100.0100, L506.0400 ####[facility] [address] [place], [address] Basophils/100 WBC (Bld) 1.4 % High 0-1 [facility] Comment on above: Performed By: #### L 501.94570, L501.9520, L500.4050, L100.0100, L506.0400 ####[facility] [address] [place], [address] Eosinophils/100 WBC (Bld) 8.7 % High 0-5 [facility] Comment on above: Performed By: #### L 501.32409, L501.9520, L500.4050, L100.0100, L506.0400 ####[facility] [address] [place], [address] Erythrocyte distribution width (RBC) [Ratio] 14.9 % High 11.6-14.6 [facility] Comment on above: Performed By: #### L 501.63311, L501.9520, L500.4050, L100.0100, L506.0400 ####[facility] [address] [place], [address] Hematocrit (Bld) [Volume fraction] 38.9 % Normal 37-47 [facility] Comment on above: Performed By: #### L 501.65422, L501.9520, L500.4050, L100.0100, L506.0400 ####[facility] [address] [place], [address] Hemoglobin (Bld) [Mass/Vol] 12.9 g/dL Normal 12.0-15.0 [facility] Comment on above: Performed By: #### L 501.17709, L501.9520, L500.4050, L100.0100, L506.0400 ####[facility] [address] [place], [address] IG% 0.500 Normal 0.0-0.9 [facility] Comment on above: Result Comment: IG% - Immature Granulocytes (promyelocytes, myelocytes andmetamyelocytes) > 1% indicates that a LEFT SHIFT is Present. Performed By: #### L 501.25021, L501.9520, L500.4050, L100.0100, L506.0400 ####[facility] [address] [place], [address] Lymphocytes/100 WBC (Bld) 24.1 % Normal 19-41 [facility] Comment on above: Performed By: #### L 501.08675, L501.9520, L500.4050, L100.0100, L506.0400 ####[facility] [address] [place], [address] MCH (RBC) [Entitic mass] 31.0 pg Normal 27.0-32.0 [facility] Comment on above: Performed By: #### L 501.46879, L501.9520, L500.4050, L100.0100, L506.0400 ####[facility] [address] [place], [address] MCHC (RBC) [Mass/Vol] 33.2 g/dL Normal 32-36 [place] Comment on above: Performed By: #### L 501.26558, L501.9520, L500.4050, L100.0100, L506.0400 ####[facility] [address] [place], [address] MCV (RBC) [Entitic vol] 93.5 fL Normal 81-99 [facility] Comment on above: Performed By: #### L 501.19585, L501.9520, L500.4050, L100.0100, L506.0400 ####[facility] [address] [place], [address] Monocytes/100 WBC (Bld) 8.4 % Normal 0-10 [facility] Comment on above: Performed By: #### L 501.26900, L501.9520, L500.4050, L100.0100, L506.0400 ####[facility] [address] [place], [address] Neutrophils/100 WBC (Bld) 56.9 % Normal 47-70 [facility] Comment on above: Performed By: #### L 501.53812, L501.9520, L500.4050, L100.0100, L506.0400 ####[facility] [address] [place], [address] Nucleated RBC (Bld) [#/Vol] 0 10*3/uL Normal 0-5 [facility] Comment on above: Performed By: #### L 501.57600, L501.9520, L500.4050, L100.0100, L506.0400 ####[facility] [address] [place], [address] Platelet mean volume (Bld) [Entitic vol] 10.2 fL Normal 6.2-12.0 [facility] Comment on above: Performed By: #### L 501.42596, L501.9520, L500.4050, L100.0100, L506.0400 ####[facility] [address] [place], [address] Platelets (Bld) [#/Vol] 218 10*3/uL Normal 150-450 [facility] Comment on above: Performed By: #### L 501.66153, L501.9520, L500.4050, L100.0100, L506.0400 ####[facility] [address] [place], [address] RBC (Bld) [#/Vol] 4.16 10*6/uL Low 4.2-5.4 [facility] Comment on above: Performed By: #### L 501.44772, L501.9520, L500.4050, L100.0100, L506.0400 ####[facility] [address] [place], [address] RDW SD 51.4 fl High 35.1-43.9 [facility] Comment on above: Performed By: #### L 501.88246, L501.9520, L500.4050, L100.0100, L506.0400 ####[facility] [address] [place], [address] WBC (Bld) [#/Vol] 5.9 10*3/uL Normal 4.4-11.0 [facility] Comment on above: Performed By: #### L 501.91303, L501.9520, L500.4050, L100.0100, L506.0400 ####[facility] [address] [place], [address] Carbon dioxide, total [Moles /volume] in Central venous bloodOrdered By: Zuly Blas on 07-25-2024 CO2 [Moles/Vol] 25.3 mmol/L 21.0-32.0 [facility] Chloride assayOrdered By: Lia Blas on 07-25-2024 Chloride [Moles/Vol] 99 mmol/L 98-108 [facility] Comprehensive Metabolic Prof ilon 07-25-2024 Albumin [Mass/Vol] 4.0 g/dL Normal 3.4-4.8 [facility] Comment on above: Performed By: #### L 501.15893, L501.9520, L500.4050, L100.0100, L506.0400 ####[facility] [address] [place], [address] Albumin/Globulin [Mass ratio] 1.3 {ratio} Normal 0.9-2.4 [facility] Comment on above: Performed By: #### L 501.61294, L501.9520, L500.4050, L100.0100, L506.0400 ####[facility] [address] [place], [address] ALK PHOS 199 U/L High 35-104 [facility] Comment on above: Performed By: #### L 501.93490, L501.9520, L500.4050, L100.0100, L506.0400 ####[facility] [address] [place], [address] ALT [Catalytic activity/Vol] 28 U/L Normal <=34 [facility] Comment on above: Performed By: #### L 501.45584, L501.9520, L500.4050, L100.0100, L506.0400 ####[facility] [address] [place], [address] AST [Catalytic activity/Vol] 37 U/L High <=31 [facility] Comment on above: Performed By: #### L 501.35399, L501.9520, L500.4050, L100.0100, L506.0400 ####[facility] [address], [address] Bilirubin [Mass/Vol] 0.33 mg/dL Normal 0.00-1.30 [facility] Comment on above: Performed By: #### L 501.30708, L501.9520, L500.4050, L100.0100, L506.0400 ####[facility] [address] [place], [address] BUN/CRE 12.9 RATIO Normal 10-20 [facility] Comment on above: Performed By: #### L 501.45742, L501.9520, L500.4050, L100.0100, L506.0400 ####[facility] [address] [place], [address] Calcium [Mass/Vol] 9.1 mg/dL Normal 7.6-11.0 [facility] Comment on above: Performed By: #### L 501.26207, L501.9520, L500.4050, L100.0100, L506.0400 ####[facility] [address] [place], [address] Chloride [Moles/Vol] 99 mmol/L Normal 98-108 [facility] Comment on above: Performed By: #### L 501.81436, L501.9520, L500.4050, L100.0100, L506.0400 ####[facility] [address] [place], [address] CO2 [Moles/Vol] 25.3 mmol/L Normal 21.0-32.0 [facility] Comment on above: Performed By: #### L 501.31120, L501.9520, L500.4050, L100.0100, L506.0400 ####[facility] [address] [place], [address] Creatinine [Mass/Vol] 0.93 mg/dL Normal 0.70-1.20 [place] Comment on above: Performed By: #### L 501.66438, L501.9520, L500.4050, L100.0100, L506.0400 ####[facility] [address] [place], [address] GAP 9 Normal 5-15 [facility] Comment on above: Performed By: #### L 501.48924, L501.9520, L500.4050, L100.0100, L506.0400 ####[facility] [address] [place], [address] GFR/1.73 sq M.predicted among non-blacks MDRD (S/P/Bld) [Vol rate/Area] 62 mL/min/{1.73_m2} Normal >60 [facility] Comment on above: Result Comment: mL/m in/1.73m2 CKD-EPI Creatinine Equation (2020) Performed By: #### L 501.51755, L501.9520, L500.4050, L100.0100, L506.0400 ####[facility] [address] [place], [address] Globulin (S) [Mass/Vol] 3.1 g/dL Normal 2.2-4.2 [facility] Comment on above: Performed By: #### L 501.23843, L501.9520, L500.4050, L100.0100, L506.0400 ####[facility] [address] [place], [address] Glucose [Mass/Vol] 91 mg/dL Normal 70-99 [facility] Comment on above: Performed By: #### L 501.56340, L501.9520, L500.4050, L100.0100, L506.0400 ####[facility] [address] [place], [address] Potassium [Moles/Vol] 5.0 mmol/L Normal 3.3-5.1 [place] Comment on above: Performed By: #### L 501.12073, L501.9520, L500.4050, L100.0100, L506.0400 ####[facility] [address] [place], [address] Sodium [Moles/Vol] 132 mmol/L Low 133-145 [facility] Comment on above: Performed By: #### L 501.23495, L501.9520, L500.4050, L100.0100, L506.0400 ####[facility] [address] [place], [address] T PROT 7.0 g/dL Normal 5.9-8.4 [facility] Comment on above: Performed By: #### L 501.64024, L501.9520, L500.4050, L100.0100, L506.0400 ####[facility] [address] [place], [address] Urea nitrogen [Mass/Vol] 12 mg/dL Normal 4-19 [facility] Comment on above: Performed By: #### L 501.08488, L501.9520, L500.4050, L100.0100, L506.0400 ####[facility] [address] [place], [address] Eosinophil percentageOrdered By: Zuly Blas on 07-25-2024 Eosinophils/100 WBC (Bld) 8.7 % High 0-5 [facility] Erythrocyte distribution wid th (RBC) [Ratio]Ordered By: Zuly Blas on 07-25-2024 Erythrocyte distribution width (RBC) [Entitic vol] 51.4 fL High 35.1-43.9 [facility] Erythrocyte distribution wid th ratioOrdered By: Zuly Blas on 07-25-2024 Erythrocyte distribution width (RBC) [Ratio] 14.9 % High 11.6-14.6 [facility] Free T3on 07-25-2024 Free T3 [Mass/Vol] 2.3 pg/mL Normal 2.18-3.98 [facility] Comment on above: Performed By: #### L 501.72563, L501.9520, L500.4050, L100.0100, L506.0400 ####[facility] [address] [place], [address] Free E6Cpfensh By: Zuly lara on 07-25-2024 Free Triiodothyronine (T3) pg/dL 2.3 pg/mL 2.18-3.98 [facility] GFR/1.73 sq M.predicted harley g non-blacks MDRD (S/P/Bld) [Vol rate/Area]Ordered By: Zuly Blas on 07-25-2024 Estimated GFR (MDRD) Non-Af Amer 62 >60 [facility] Comment on above: mL/min/1.73m2 CKD-EP I Creatinine Equation (2020) Hematocrit Auto (Bld) [Volum e fraction]Ordered By: Zuly Blas on 07-25-2024 Hematocrit (Bld) [Volume fraction] 38.9 % 37-47 [facility] Hemoglobin measurementOrdere d By: Zuly Blas on 07-25-2024 Hemoglobin (Bld) [Mass/Vol] 12.9 g/dL 12.0-15.0 [facility] Immature granulocytes/100 WB C Auto (Bld)Ordered By: Zuly Blas on 07-25-2024 Immature granulocytes/100 WBC (Bld) 0.500 % 0.0-0.9 [facility] Comment on above: IG% - Immature Granu locytes (promyelocytes, myelocytes and metamyelocytes) > 1% indicates that a LEFT SHIFT is Present. Laboratory - Chemistry and C hemistry - challengeOrdered By: Zuly Blas on 07-25-2024 AST [Catalytic activity/Vol] 37 U/L High <32 [facility] Lymphocytes Auto (Unsp spec) [#/Vol]Ordered By: Zuly Blas on 07-25-2024 Lymphocytes (Bld) [#/Vol] 1.41 10*3/uL 0.83-4.51 [facility] Lymphocytes/100 WBC Auto (Un sp spec)Ordered By: Zuly Blas on 07-25-2024 Lymphocytes/100 WBC (Bld) 24.1 % 19-41 [facility] MCV (mean corpuscular volume ) determinationOrdered By: Zuly Blas on 07-25-2024 MCV (RBC) [Entitic vol] 93.5 fL 81-99 [facility] Mean corpuscular hemoglobin (MCH) determinationOrdered By: Zuly Blas on 07-25-2024 MCH (RBC) [Entitic mass] 31.0 pg 27.0-32.0 [facility] Mean corpuscular hemoglobin concentration (MCHC) determinationOrdered By: Zuly Blas on 07-25-2024 MCHC (RBC) [Mass/Vol] 33.2 g/dL 32-36 [place] Mean platelet volume determi nationOrdered By: Zuly Blas on 07-25-2024 Platelet mean volume (Bld) [Entitic vol] 10.2 fL 6.2-12.0 [facility] Monocyte percentageOrdered B y: Zuly Blas on 07-25-2024 Monocytes/100 WBC (Bld) 8.4 % 0-10 [facility] Neutrophil percentageOrdered By: Zuly Blas on 07-25-2024 Neutrophils/100 WBC (Bld) 56.9 % 47-70 [facility] Nucleated red blood cell per centageOrdered By: Zuly Blas on 07-25-2024 Nucleated RBC/100 WBC (Bld) [Ratio] 0 % 0-5 [facility] Platelet countOrdered By: Lia Blas on 07-25-2024 Platelets (Bld) [#/Vol] 218 10*3/uL 150-450 [facility] Potassium (Unsp spec) [Mass/ Vol]Ordered By: Zuly Blas on 07-25-2024 Potassium [Moles/Vol] 5.0 mmol/L 3.3-5.1 [place] RBC Auto (Bld) [#/Vol]Ordere d By: Zuly Blas on 07-25-2024 RBC (Bld) [#/Vol] 4.16 10*6/uL Low 4.2-5.4 [facility] Serum creatinine measurement (mass/volume)Ordered By: Zuly Blas on 07-25-2024 Creatinine [Mass/Vol] 0.93 mg/dL 0.70-1.20 [place] Serum globulin measurementOr dered By: Zuly Blas on 07-25-2024 Globulin (S) [Mass/Vol] 3.1 g/dL 2.2-4.2 [facility] Serum glucose measurement (m ass/volume)Ordered By: Zuly Blas on 07-25-2024 Glucose [Mass/Vol] 91 mg/dL 70-99 [facility] Serum or plasma alanine salguero otransferase (ALT) measurementOrdered By: Zuly Blas on 07-25-2024 ALT [Catalytic activity/Vol] 28 U/L <35 [facility] Serum or plasma albumin magdalena urement (mass/volume)Ordered By: Zuly Blas on 07-25-2024 Albumin [Mass/Vol] 4.0 g/dL 3.4-4.8 [facility] Serum or plasma albumin/glob ulin mass ratioOrdered By: Zuly Blas on 07-25-2024 Albumin/Globulin [Mass ratio] 1.3 {ratio} 0.9-2.4 [facility] Serum or plasma alkaline terrance sphatase measurementOrdered By: Zuly Blas on 07-25-2024 ALP [Catalytic activity/Vol] 199 U/L High 35-104 [facility] Serum or plasma calcium magdalena urement (mass/volume)Ordered By: Zuly Blas on 07-25-2024 Calcium [Mass/Vol] 9.1 mg/dL 7.6-11.0 [facility] Serum or plasma urea nitroge n measurement (mass/volume)Ordered By: Zuly Blas on 07-25-2024 Urea nitrogen [Mass/Vol] 12 mg/dL 4-19 [facility] Sodium levelOrdered By: Zuly Blas on 07-25-2024 Sodium [Moles/Vol] 132 mmol/L Low 133-145 [facility] T4 Free Directon 07-25-2024 T4 FREE DIRECT 0.90 ng/dL Normal 0.76-1.46 [facility] Comment on above: Performed By: #### L 501.76263, L501.9578, L500.4050, L100.0100, L506.0400 ####[facility] [address] [place], [place], [address] T4 freeOrdered By: Zuly Schumacher s on 07-25-2024 Free T4 [Mass/Vol] 0.90 ng/dL 0.76-1.46 [facility] TSH DL <= 0.005 mIU/L QnOrde red By: Zuly Blas on 07-25-2024 Thyroid Stimulating Hormone (TSH) 11.000 uIU/mL High 0.300-4.200 [facility] Thyroid Stim Hormone (TSH)on 07-25-2024 TSH 11.000 uIU/mL High 0.300-4.200 [facility] Comment on above: Performed By: #### L 501.84481, L501.9520, L500.4050, L100.0100, L506.0400 ####[facility] [address] [place], [place], [id number] Total proteinOrdered By: Carmen Blas on 07-25-2024 Protein [Mass/Vol] 7.0 g/dL 5.9-8.4 [facility] White blood cell (WBC) count Ordered By: Zuly Blas on 07-25-2024 WBC (Bld) [#/Vol] 5.9 10*3/uL 4.4-11.0 [facility] HIP, UNI W/ Pelvis 2-3 Views on 06-02-2024 HIP, UNI W/ Pelvis 2-3 Views Normal [facility] Orthopedic Visit Reporton Orthopedic Visit Report Normal [facility] PT D/C Summary (1)on 025 PT D/C Summary (1) Normal [facility] CNPNon 04-15-2024 CNPN Telephone (AGGENS3) SONIA NOBLE ([id number]) 1945 F NFR Date Time Provider Department 1/3/25 LIZZ KING AGGENS3 During your visit today, we recorded the following information about you: Lizz King APRN.[place] 04/15/2024 9:20 AM Signed Last two phone calls never returned to clinic. Patient is not scheduled for surgery nor has an upcoming appt with the surgeon. Will remove off of call list. -Lizz King APRN.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 Allergies As of Date: 04/15/2024 Noted Allergy Reaction DARVOCET A500 (PROPOXYPHENE N-ARABELLA*03/13/2005 8 - GI Upset 11 - Vomiting DARVON (PROPOXYPHENE HCL) 03/13/2005 8 - GI Upset SULFA (SULFONAMIDE ANTIBIOTICS) 03/13/2005 4 - Hives 8 - GI Upset 11 - Vomiting Date Reviewed: 11/10/2023 Reviewed by: Lizz King APRN.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 - Fully Assessed Reason for Visit: Patient Update [1234] Prescriptions as of 04/15/2024 - buPROPion XL (WELLBUTRIN XL) 150 mg 24 hr tablet Take 150 mg by mouth once daily. - pravastatin (PRAVACHOL) 10 mg tablet Take 10 mg by mouth once daily. - sertraline (ZOLOFT) 100 mg tablet Take 100 mg by mouth once daily. - meloxicam (MOBIC) 15 mg tablet Take 15 mg by mouth once daily. - CALCIUM CARBONATE/VITAMIN D3 (CALCIUM + D ORAL) Take by mouth. - LORazepam (ATIVAN) 1 mg tablet Take 1 tablet by mouth daily at bedtime. - VITAMIN B COMPLEX (B-COMPLEX ORAL) Take by mouth. - levothyroxine (LEVOXYL) 125 mcg ORAL tablet Take 100 mcg by mouth once daily. - multivitamin ORAL tablet Take 2 tablets by mouth once daily. - omeprazole magnesium(PRILOSEC OTC 20 MG TAB) Take two tablets daily. - MIRTAZAPINE 15 MG TAB Take one(1) tablet daily at bedtime. - ADVIL 200 MG TAB as necessary Problem List As Of Date 04/15/2024 Noted Resolved RETICULOSARCOMA MULT [C83.38] 03/14/2005 HYPOTHYROIDISM NOS [E03.9] 07/14/2006 Iron deficiency anemia, unspecified [D50.9] 09/16/2010 Family history of malignant neoplasm of gastroi*09/16/2010 Esophageal reflux [K21.9] 09/16/2010 Loss of weight [R63.4] 09/16/2010 Cancer of ascending colon [C18.2] 12/03/2010 Personal history of colon cancer [Z85.038] 12/12/2011 Reflux gastritis [K29.60] 12/28/2015 PONV (postoperative nausea and vomiting) [R11.2*11/10/2023 Encounter Status:Closed by LIZZ KING on 04/15/24 Normal [facility] Re-Evaluation - PT (1)on Re-Evaluation - PT (1) Normal [facility] 03-15-2024 CNPN Telephone (AGGENS3) SONIA NOBLE ([id number]) 1945 F NFR Date Time Provider Department 03/15/24 LIZZ KING AGGENS3 During your visit today, we recorded the following information about you: Lizz King APRN.CNP 03/15/2024 3:51 PM Signed LMV for patient to call clinic with updates. -Lizz Allergies As of Date: 03/15/2024 Noted Allergy Reaction DARVOCET A500 (PROPOXYPHENE N-ARABELLA*03/13/2005 8 - GI Upset 11 - Vomiting DARVON (PROPOXYPHENE HCL) 03/13/2005 8 - GI Upset SULFA (SULFONAMIDE ANTIBIOTICS) 03/13/2005 4 - Hives 8 - GI Upset 11 - Vomiting Date Reviewed: 11/10/2023 Reviewed by: Lizz King APRN.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 - Fully Assessed Reason for Visit: Patient Update [1234] Prescriptions as of 03/15/2024 - buPROPion XL (WELLBUTRIN XL) 150 mg 24 hr tablet Take 150 mg by mouth once daily. - pravastatin (PRAVACHOL) 10 mg tablet Take 10 mg by mouth once daily. - sertraline (ZOLOFT) 100 mg tablet Take 100 mg by mouth once daily. - meloxicam (MOBIC) 15 mg tablet Take 15 mg by mouth once daily. - CALCIUM CARBONATE/VITAMIN D3 (CALCIUM + D ORAL) Take by mouth. - LORazepam (ATIVAN) 1 mg tablet Take 1 tablet by mouth daily at bedtime. - VITAMIN B COMPLEX (B-COMPLEX ORAL) Take by mouth. - levothyroxine (LEVOXYL) 125 mcg ORAL tablet Take 100 mcg by mouth once daily. - multivitamin ORAL tablet Take 2 tablets by mouth once daily. - omeprazole magnesium(PRILOSEC OTC 20 MG TAB) Take two tablets daily. - MIRTAZAPINE 15 MG TAB Take one(1) tablet daily at bedtime. 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] 03/14/2005 HYPOTHYROIDISM NOS [E03.9] 07/14/2006 Iron deficiency anemia, unspecified [D50.9] 09/16/2010 Family history of malignant neoplasm of gastroi*09/16/2010 Esophageal reflux [K21.9] 09/16/2010 Loss of weight [R63.4] 09/16/2010 Cancer of ascending colon [C18.2] 12/03/2010 Personal history of colon cancer [Z85.038] 12/12/2011 Reflux gastritis [K29.60] 12/28/2015 PONV (postoperative nausea and vomiting) [R11.2*11/10/2023 Encounter Status:Closed by LIZZ KING on 03/15/24 Normal [facility] Inital Evaluation (1) - PTon 02-24-2024 Inital Evaluation (1) - PT Normal [facility] HIP, UNI W/ Pelvis 2-3 Views on 02-12-2024 HIP, UNI W/ Pelvis 2-3 Views Normal [facility] Orthopedic Visit Reporton Orthopedic Visit Report Normal [facility] 02-05-2024 [facility] Telephone (AGGENS3) SONIA NOBLE ([id number]) 1945 F NFR Date Time Provider Department 02/05/24 LIZZ KING AGGENS3 During your visit today, we recorded the following information about you: Lizz King APRN.CNP 02/05/2024 11:57 AM Signed LMV for patient to call clinic with updates. No appt with surgeon or surgery scheduled as of yet. Will place iron pourer back list for four weeks. -Lizz King APRN.CNP Allergies As of Date: 02/05/2024 Noted Allergy Reaction DARVOCET A500 (PROPOXYPHENE N-ARABELLA*03/13/2005 8 - GI Upset 11 - Vomiting DARVON (PROPOXYPHENE HCL) 03/13/2005 8 - GI Upset SULFA (SULFONAMIDE ANTIBIOTICS) 03/13/2005 4 - Hives 8 - GI Upset 11 - Vomiting Date Reviewed: 11/10/2023 Reviewed by: Lizz King APRN.CNP - Fully Assessed Reason for Visit: Patient Update [1234] Prescriptions as of 02/05/2024 - buPROPion XL (WELLBUTRIN XL) 150 mg 24 hr tablet Take 150 mg by mouth once daily. - pravastatin (PRAVACHOL) 10 mg tablet Take 10 mg by mouth once daily. - sertraline (ZOLOFT) 100 mg tablet Take 100 mg by mouth once daily. - meloxicam (MOBIC) 15 mg tablet Take 15 mg by mouth once daily. - CALCIUM CARBONATE/VITAMIN D3 (CALCIUM + D ORAL) Take by mouth. - LORazepam (ATIVAN) 1 mg tablet Take 1 tablet by mouth daily at bedtime. - VITAMIN B COMPLEX (B-COMPLEX ORAL) Take by mouth. - levothyroxine (LEVOXYL) 125 mcg ORAL tablet Take 100 mcg by mouth once daily. - multivitamin ORAL tablet Take 2 tablets by mouth once daily. - omeprazole magnesium(PRILOSEC OTC 20 MG TAB) Take two tablets daily. - MIRTAZAPINE 15 MG TAB Take one(1) tablet daily at bedtime. - ADVIL 200 MG TAB as necessary Problem List As Of Date 02/05/2024 Noted Resolved RETICULOSARCOMA MULT [C83.38] 03/14/2005 HYPOTHYROIDISM NOS [E03.9] 07/14/2006 Iron deficiency anemia, unspecified [D50.9] 09/16/2010 Family history of malignant neoplasm of gastroi*09/16/2010 Esophageal reflux [K21.9] 09/16/2010 Loss of weight [R63.4] 09/16/2010 Cancer of ascending colon [C18.2] 12/03/2010 Personal history of colon cancer [Z85.038] 12/12/2011 Reflux gastritis [K29.60] 12/28/2015 PONV (postoperative nausea and vomiting) [R11.2*11/10/2023 Encounter Status:Closed by LIZZ KING on 02/05/24 Normal [facility] SCRN MAMM (CAD)W/JHONNY BILATo n 01-25-2024 SCRN MAMM (CAD)W/JHONNY BILAT Normal [facility] 01-01-2024 CNPN Telephone (AGGENS3) SONIA NOBLE ([id number]) 1945 F NFR Date Time Provider Department 01/01/24 LIZZ KING AGGENS3 During your visit today, we recorded the following information about you: Lizz King APRN.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 01/01/2024 10:45 AM Signed Spoke with patient on the phone today for updates. Reports she is now doing rehab therapy at home, she is able to walk now with a cane. She reports she had recently loss some weight and is trying to put some back on. Would like to wait about another month before rescheduling with Dr. Mir to build up some strength. Will place iron pourer back list at this time. -Lizz King APRN.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 Allergies As of Date: 01/01/2024 Noted Allergy Reaction DARVOCET A500 (PROPOXYPHENE N-ARABELLA*03/13/2005 8 - GI Upset 11 - Vomiting DARVON (PROPOXYPHENE HCL) 03/13/2005 8 - GI Upset SULFA (SULFONAMIDE ANTIBIOTICS) 03/13/2005 4 - Hives 8 - GI Upset 11 - Vomiting Date Reviewed: 11/10/2023 Reviewed by: Lizz King APRN.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 - Fully Assessed Reason for Visit: Patient Update [1234] Prescriptions as of 01/01/2024 - buPROPion XL (WELLBUTRIN XL) 150 mg 24 hr tablet Take 150 mg by mouth once daily. - pravastatin (PRAVACHOL) 10 mg tablet Take 10 mg by mouth once daily. - sertraline (ZOLOFT) 100 mg tablet Take 100 mg by mouth once daily. - meloxicam (MOBIC) 15 mg tablet Take 15 mg by mouth once daily. - CALCIUM CARBONATE/VITAMIN D3 (CALCIUM + D ORAL) Take by mouth. - LORazepam (ATIVAN) 1 mg tablet Take 1 tablet by mouth daily at bedtime. - VITAMIN B COMPLEX (B-COMPLEX ORAL) Take by mouth. - levothyroxine (LEVOXYL) 125 mcg ORAL tablet Take 100 mcg by mouth once daily. - multivitamin ORAL tablet Take 2 tablets by mouth once daily. - omeprazole magnesium(PRILOSEC OTC 20 MG TAB) Take two tablets daily. - MIRTAZAPINE 15 MG TAB Take one(1) tablet daily at bedtime. 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, [address] Absolute Neut 8.3 X10 3/uL High 2.0-7.7 [facility] Comment on above: Performed By: #### L 503.6150, L503.6550, L503.0105, L500.4050, L100.0100 ####[facility] [address] [place], [address] Basophils/100 WBC (Bld) 0.6 % Normal 0-1 [facility] Comment on above: Performed By: #### L 503.6150, L503.6550, L503.0105, L500.4050, L100.0100 ####[facility] [address] [place], [address] Eosinophils/100 WBC (Bld) 0.6 % Normal 0-5 [facility] Comment on above: Performed By: #### L 503.6150, L503.6550, L503.0105, L500.4050, L100.0100 ####[facility] [address] [place], [address] Erythrocyte distribution width (RBC) [Ratio] 15.8 % High 11.6-14.6 [facility] Comment on above: Performed By: #### L 503.6150, L503.6550, L503.0105, L500.4050, L100.0100 ####[facility] [address] [place], [address] Hematocrit (Bld) [Volume fraction] 38.9 % Normal 37-47 [facility] Comment on above: Performed By: #### L 503.6150, L503.6550, L503.0105, L500.4050, L100.0100 ####[facility] [address] [place], [address] Hemoglobin (Bld) [Mass/Vol] 11.8 g/dL Low 12.0-15.0 [facility] Comment on above: Performed By: #### L 503.6150, L503.6550, L503.0105, L500.4050, L100.0100 ####[facility] [address] [place], [address] IG% 0.600 Normal 0.0-0.9 [facility] Comment on above: Result Comment: IG% - Immature Granulocytes (promyelocytes, myelocytes andmetamyelocytes) > 1% indicates that a LEFT SHIFT is Present. Performed By: #### L 503.6150, L503.6550, L503.0105, L500.4050, L100.0100 ####[facility] [address] [place], [address] Lymphocytes/100 WBC (Bld) 11.0 % Low 19-41 [facility] Comment on above: Performed By: #### L 503.6150, L503.6550, L503.0105, L500.4050, L100.0100 ####[facility] [address] [place], [address] MCH (RBC) [Entitic mass] 29.2 pg Normal 27.0-32.0 [facility] Comment on above: Performed By: #### L 503.6150, L503.6550, L503.0105, L500.4050, L100.0100 ####[facility] [address] [place], [address] MCHC (RBC) [Mass/Vol] 30.3 g/dL Low 32-36 [facility] Comment on above: Performed By: #### L 503.6150, L503.6550, L503.0105, L500.4050, L100.0100 ####[facility] [address] [place], [address] MCV (RBC) [Entitic vol] 96.3 fL Normal 81-99 [facility] Comment on above: Performed By: #### L 503.6150, L503.6550, L503.0105, L500.4050, L100.0100 ####[facility] [address] [place], [address] Monocytes/100 WBC (Bld) 5.9 % Normal 0-10 [facility] Comment on above: Performed By: #### L 503.6150, L503.6550, L503.0105, L500.4050, L100.0100 ####[facility] [address] [place], [address] Neutrophils/100 WBC (Bld) 81.3 % High 47-70 [facility] Comment on above: Performed By: #### L 503.6150, L503.6550, L503.0105, L500.4050, L100.0100 ####[facility] [address] [place], [address] Nucleated RBC (Bld) [#/Vol] 0 10*3/uL Normal 0-5 [facility] Comment on above: Performed By: #### L 503.6150, L503.6550, L503.0105, L500.4050, L100.0100 ####[facility] [address] [place], [address] Platelet mean volume (Bld) [Entitic vol] 10.8 fL Normal 6.2-12.0 [facility] Comment on above: Performed By: #### L 503.6150, L503.6550, L503.0105, L500.4050, L100.0100 ####[facility] [address] [place], [address] Platelets (Bld) [#/Vol] 277 10*3/uL Normal 150-450 [facility] Comment on above: Performed By: #### L 503.6150, L503.6550, L503.0105, L500.4050, L100.0100 ####[facility] [address] [place], [address] RBC (Bld) [#/Vol] 4.04 10*6/uL Low 4.2-5.4 [facility] Comment on above: Performed By: #### L 503.6150, L503.6550, L503.0105, L500.4050, L100.0100 ####[facility] [address] [place], [address] RDW SD 56.4 fl High 35.1-43.9 [facility] Comment on above: Performed By: #### L 503.6150, L503.6550, L503.0105, L500.4050, L100.0100 ####[facility] [address] [place], [address] WBC (Bld) [#/Vol] 10.2 10*3/uL Normal 4.4-11.0 [facility] Comment on above: Performed By: #### L 503.6150, L503.6550, L503.0105, L500.4050, L100.0100 ####[facility] [address] [place], [address] Comprehensive Metabolic Prof ilon 12-23-2023 Albumin [Mass/Vol] 3.2 g/dL Normal 3.2-5.0 [facility] Comment on above: Performed By: #### L 503.6150, L503.6550, L503.0105, L500.4050, L100.0100 ####[facility] [address] [place], [address] Albumin/Globulin [Mass ratio] 0.9 {ratio} Normal 0.9-2.4 [facility] Comment on above: Performed By: #### L 503.6150, L503.6550, L503.0105, L500.4050, L100.0100 ####[facility] [address] [place], [address] ALK P 179 U/L High 45-117 [facility] Comment on above: Performed By: #### L 503.6150, L503.6550, L503.0105, L500.4050, L100.0100 ####[facility] [address] [place], [address] ALT [Catalytic activity/Vol] 29 U/L Normal 13-56 [facility] Comment on above: Performed By: #### L 503.6150, L503.6550, L503.0105, L500.4050, L100.0100 ####[facility] [address] [place], [address] AST [Catalytic activity/Vol] 34 U/L Normal 15-37 [facility] Comment on above: Performed By: #### L 503.6150, L503.6550, L503.0105, L500.4050, L100.0100 ####[facility] [address] [place], [address] Bilirubin [Mass/Vol] 0.40 mg/dL Normal 0.20-1.00 [facility] Comment on above: Result Comment: For patients on eltrombopag therapy, use of Dimension [place] TBIL is not recommended. Performed By: #### L 503.6150, L503.6550, L503.0105, L500.4050, L100.0100 ####[facility] [address] [place], [address] BUN/CRE 13.9 RATIO Normal 10-20 [facility] Comment on above: Performed By: #### L 503.6150, L503.6550, L503.0105, L500.4050, L100.0100 ####[facility] [address] [place], [address] CA,Total 9.4 mg/dL Normal 8.5-10.1 [facility] Comment on above: Performed By: #### L 503.6150, L503.6550, L503.0105, L500.4050, L100.0100 ####[facility] [address] [place], [address] Chloride [Moles/Vol] 103 mmol/L Normal 98-107 [facility] Comment on above: Performed By: #### L 503.6150, L503.6550, L503.0105, L500.4050, L100.0100 ####[facility] [address] [place], [address] CO2 [Moles/Vol] 26.0 mmol/L Normal 21.0-32.0 [facility] Comment on above: Performed By: #### L 503.6150, L503.6550, L503.0105, L500.4050, L100.0100 ####[facility] [address] [place], [address] Creatinine [Mass/Vol] 0.72 mg/dL Normal 0.55-1.02 [facility] Comment on above: Result Comment: The validity of the calculated GFR GFRAA in patients over70 years has not been determined. Clinical correlation isessential. Performed By: #### L 503.6150, L503.6550, L503.0105, L500.4050, L100.0100 ####[facility] [address] [place], [address] EST GFR - AA 100 mL/min Normal >60 [facility] Comment on above: Result Comment: Afri can Georgian GFR Calc Performed By: #### L 503.6150, L503.6550, L503.0105, L500.4050, L100.0100 ####[facility] [address] [place], [address] GAP 6 Normal 5-15 [facility] Comment on above: Performed By: #### L 503.6150, L503.6550, L503.0105, L500.4050, L100.0100 ####[facility] [address] [place], [address] GFR/1.73 sq M.predicted among non-blacks MDRD (S/P/Bld) [Vol rate/Area] 83 mL/min/{1.73_m2} Normal >60 [facility] Comment on above: Result Comment: Non- GFR Calc Performed By: #### L 503.6150, L503.6550, L503.0105, L500.4050, L100.0100 ####[facility] [address] [place], [address] Globulin (S) [Mass/Vol] 3.7 g/dL Normal 2.2-4.2 [facility] Comment on above: Performed By: #### L 503.6150, L503.6550, L503.0105, L500.4050, L100.0100 ####[facility] [address] [place], [address] Glucose [Mass/Vol] 94 mg/dL Normal 74-106 [facility] Comment on above: Performed By: #### L 503.6150, L503.6550, L503.0105, L500.4050, L100.0100 ####[facility] [address] [place], [address] Potassium [Moles/Vol] 4.5 mmol/L Normal 3.5-5.1 [facility] Comment on above: Performed By: #### L 503.6150, L503.6550, L503.0105, L500.4050, L100.0100 ####[facility] [address] [place], [address] Sodium [Moles/Vol] 135 mmol/L Low 136-145 [facility] Comment on above: Performed By: #### L 503.6150, L503.6550, L503.0105, L500.4050, L100.0100 ####[facility] [address] [place], [address] T PROT 6.9 g/dL Normal 6.4-8.2 [facility] Comment on above: Performed By: #### L 503.6150, L503.6550, L503.0105, L500.4050, L100.0100 ####[facility] [address] [place], [address] Urea nitrogen [Mass/Vol] 10 mg/dL Normal 7-18 [facility] Comment on above: Performed By: #### L 503.6150, L503.6550, L503.0105, L500.4050, L100.0100 ####[facility] [address] [place], [address] Ferritinon 12-23-2023 Ferritin [Mass/Vol] 111 ng/mL Normal 8-252 [facility] Comment on above: Performed By: #### L 503.6150, L503.6550, L503.0105, L500.4050, L100.0100 ####[facility] [address] [place], [address] Ironon 12-23-2023 Iron [Mass/Vol] 26 ug/dL Low 50-170 [facility] Comment on above: Performed By: #### L 503.6150, L503.6550, L503.0105, L500.4050, L100.0100 ####[facility] [address] [place], [address] Vitamin B12on 12-23-2023 Cobalamin (Vitamin B12) [Mass/Vol] 262 pg/mL Normal 211-911 [facility] Comment on above: Performed By: #### L 503.6150, L503.6550, L503.0105, L500.4050, L100.0100 ####[facility] [address] [place], [address] HIP, UNI W/ Pelvis 2-3 Views on 11-27-2023 HIP, UNI W/ Pelvis 2-3 Views Normal [facility] Orthopedic Visit Reporton Orthopedic Visit Report Normal [facility] NOBLE ([id number]) 1945 F NFR Date Time Provider Department 11/24/23 CHASITY MIR4 During your visit today, we recorded the following information about you: Amelie Rai 11/24/2023 1:07 PM Signed Left voicemail for the patient to get her scheduled for a follow up appt with based off her upper GI results. Looks like she had a follow up scheduled for 12/03 and cancelled it. I gave her my direct line on the voicemail to call me back and get scheduled. Amelie Walls Rai Allergies As of Date: 11/24/2023 Noted Allergy Reaction DARVOCET A500 (PROPOXYPHENE N-ARABELLA*03/13/2005 8 - GI Upset 11 - Vomiting DARVON (PROPOXYPHENE HCL) 03/13/2005 8 - GI Upset SULFA (SULFONAMIDE ANTIBIOTICS) 03/13/2005 4 - Hives 8 - GI Upset 11 - Vomiting Date Reviewed: 11/10/2023 Reviewed by: Lizz King APRN.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 - Fully Assessed Reason for Visit: Appointment [186] Prescriptions as of 11/24/2023 - buPROPion XL (WELLBUTRIN XL) 150 mg 24 hr tablet Take 150 mg by mouth once daily. - pravastatin (PRAVACHOL) 10 mg tablet Take 10 mg by mouth once daily. - sertraline (ZOLOFT) 100 mg tablet Take 100 mg by mouth once daily. - meloxicam (MOBIC) 15 mg tablet Take 15 mg by mouth once daily. - CALCIUM CARBONATE/VITAMIN D3 (CALCIUM + D ORAL) Take by mouth. - LORazepam (ATIVAN) 1 mg tablet Take 1 tablet by mouth daily at bedtime. - VITAMIN B COMPLEX (B-COMPLEX ORAL) Take by mouth. - levothyroxine (LEVOXYL) 125 mcg ORAL tablet Take 100 mcg by mouth once daily. - multivitamin ORAL tablet Take 2 tablets by mouth once daily. - omeprazole magnesium(PRILOSEC OTC 20 MG TAB) Take two tablets daily. - MIRTAZAPINE 15 MG TAB Take one(1) tablet daily at bedtime. 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 11-23-2023 [place] Telephone (AGGENS3) SONIA NOBLE ([id number]) 1945 F NFR Date Time Provider Department 11/23/23 LIZZ KING AGGENS3 During your visit today, we recorded the following information about you: Lizz King APRN.CNP 11/23/2023 12:49 PM Signed Spoke with patient on the phone, she reports that she fell and broke her hip on 11/12/2023. She had surgical repair at [facility] and is now currently doing rehab. She would like to have her manometry and subsequent f/u appt with Dr. Mir rescheduled. Message sent to surgery staff. Lizz King APRN.KALEIGH Allergies As of Date: 11/23/2023 Noted Allergy Reaction DARVOCET A500 (PROPOXYPHENE N-ARABELLA*03/13/2005 8 - GI Upset 11 - Vomiting DARVON (PROPOXYPHENE HCL) 03/13/2005 8 - GI Upset SULFA (SULFONAMIDE ANTIBIOTICS) 03/13/2005 4 - Hives 8 - GI Upset 11 - Vomiting Date Reviewed: 11/10/2023 Reviewed by: Lizz King APRN.CNP - Fully Assessed Reason for Visit: Patient Update [1234] Prescriptions as of 11/23/2023 - buPROPion XL (WELLBUTRIN XL) 150 mg 24 hr tablet Take 150 mg by mouth once daily. - pravastatin (PRAVACHOL) 10 mg tablet Take 10 mg by mouth once daily. - sertraline (ZOLOFT) 100 mg tablet Take 100 mg by mouth once daily. - meloxicam (MOBIC) 15 mg tablet Take 15 mg by mouth once daily. - CALCIUM CARBONATE/VITAMIN D3 (CALCIUM + D ORAL) Take by mouth. - LORazepam (ATIVAN) 1 mg tablet Take 1 tablet by mouth daily at bedtime. - VITAMIN B COMPLEX (B-COMPLEX ORAL) Take by mouth. - levothyroxine (LEVOXYL) 125 mcg ORAL tablet Take 100 mcg by mouth once daily. - multivitamin ORAL tablet Take 2 tablets by mouth once daily. - omeprazole magnesium(PRILOSEC OTC 20 MG TAB) Take two tablets daily. - MIRTAZAPINE 15 MG TAB Take one(1) tablet daily at bedtime. 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] 12/28/2015 PONV (postoperative nausea and vomiting) [R11.2*11/10/2023 Encounter Status:Closed by LIZZ KING on 11/23/23 Normal [facility] Basic Metabolic Profile (BMP )on 11-21-2023 BUN Normal 7-18 [facility] Comment on above: Result Comment: Canc elled via OM: Order cancelled - Patient discharged Performed By: #### L 500.2500, L100.0100 ####[facility] [address] [place], [address] BUN/CRE Normal 10-20 [facility] Comment on above: Result Comment: Canc elled via OM: Order cancelled - Patient discharged Performed By: #### L 500.2500, L100.0100 ####[facility] [address] [place], [address] CA,Total Normal 8.5-10.1 [facility] Comment on above: Result Comment: Canc elled via OM: Order cancelled - Patient discharged Performed By: #### L 500.2500, L100.0100 ####[facility] [address] [place], [address] CL Normal 98-107 [facility] Comment on above: Result Comment: Canc elled via OM: Order cancelled - Patient discharged Performed By: #### L 500.2500, L100.0100 ####[facility] [address] [place], [address] CO2 Normal 21.0-32.0 [facility] Comment on above: Result Comment: Canc elled via OM: Order cancelled - Patient discharged Performed By: #### L 500.2500, L100.0100 ####[facility] [address] [place], [address] CREAT,SERUM Normal 0.55-1.02 [facility] Comment on above: Result Comment: Canc elled via OM: Order cancelled - Patient discharged Performed By: #### L 500.2500, L100.0100 ####[facility] [address] [place], [address] EST GFR Normal >60 [facility] Comment on above: Result Comment: Canc elled via OM: Order cancelled - Patient discharged Performed By: #### L 500.2500, L100.0100 ####[facility] [address] [place], [address] EST GFR - AA Normal >60 [facility] Comment on above: Result Comment: Canc elled via OM: Order cancelled - Patient discharged Performed By: #### L 500.2500, L100.0100 ####[facility] [address] [place], [address] GAP Normal 5-15 [facility] Comment on above: Result Comment: Canc elled via OM: Order cancelled - Patient discharged Performed By: #### L 500.2500, L100.0100 ####[facility] [address] [place], [address] GLU Normal 74-106 [facility] Comment on above: Result Comment: Canc elled via OM: Order cancelled - Patient discharged Performed By: #### L 500.2500, L100.0100 ####[facility] [address] [place], [address] Potassium Normal 3.5-5.1 [facility] Comment on above: Result Comment: Canc elled via OM: Order cancelled - Patient discharged Performed By: #### L 500.2500, L100.0100 ####[facility] [address] [place], [address] Basic Metabolic Profile (BMP) Normal 136-145 [facility] Comment on above: Result Comment: Canc elled via OM: Order cancelled - Patient discharged Performed By: #### L 500.2500, L100.0100 ####[facility] [address] [place], [address] CBC W/Diff, Automatedon 08- Absolute Neut Normal 2.0-7.7 [facility] Comment on above: Result Comment: Canc elled via OM: Order cancelled - Patient discharged Performed By: #### L 500.2500, L100.0100 ####[facility] [address] [place], [address] HCT Normal 37-47 [facility] Comment on above: Result Comment: Canc elled via OM: Order cancelled - Patient discharged Performed By: #### L 500.2500, L100.0100 ####[facility] [address] [place], [address] HGB Normal 12.0-15.0 [facility] Comment on above: Result Comment: Canc elled via OM: Order cancelled - Patient discharged Performed By: #### L 500.2500, L100.0100 ####[facility] [address] [place], [address] MCH Normal 27.0-32.0 [facility] Comment on above: Result Comment: Canc elled via OM: Order cancelled - Patient discharged Performed By: #### L 500.2500, L100.0100 ####[facility] [address] [place], [address] MCHC Normal 32-36 [facility] Comment on above: Result Comment: Canc elled via OM: Order cancelled - Patient discharged Performed By: #### L 500.2500, L100.0100 ####[facility] [address] [place], [address] MCV Normal 81-99 [facility] Comment on above: Result Comment: Canc elled via OM: Order cancelled - Patient discharged Performed By: #### L 500.2500, L100.0100 ####[facility] [address] [place], [address] NEUT% Normal 47-70 [facility] Comment on above: Result Comment: Canc elled via OM: Order cancelled - Patient discharged Performed By: #### L 500.2500, L100.0100 ####[facility] [address] [place], [address] PLT Normal 150-450 [facility] Comment on above: Result Comment: Canc elled via OM: Order cancelled - Patient discharged Performed By: #### L 500.2500, L100.0100 ####[facility] [address] [place], [address] RBC Normal 4.2-5.4 [facility] Comment on above: Result Comment: Canc elled via OM: Order cancelled - Patient discharged Performed By: #### L 500.2500, L100.0100 ####[facility] [address] [place], [address] RDW CV Normal 11.6-14.6 [facility] Comment on above: Result Comment: Canc elled via OM: Order cancelled - Patient discharged Performed By: #### L 500.2500, L100.0100 ####[facility] [address] [place], [address] RDW SD Normal 35.1-43.9 [facility] Comment on above: Result Comment: Canc elled via OM: Order cancelled - Patient discharged Performed By: #### L 500.2500, L100.0100 ####[facility] [address] [place], [address] WBC Normal 4.4-11.0 [facility] Comment on above: Result Comment: Canc elled via OM: Order cancelled - Patient discharged Performed By: #### L 500.2500, L100.0100 ####[facility] [address] [place], [address] Basic Metabolic Profile (BMP )on 11-20-2023 BUN Normal 7-18 [facility] Comment on above: Result Comment: Canc elled via OM: Order cancelled - Patient discharged Performed By: #### L 500.2500, L100.0100 ####[facility] [address] [place], [address] BUN/CRE Normal 10-20 [facility] Comment on above: Result Comment: Canc elled via OM: Order cancelled - Patient discharged Performed By: #### L 500.2500, L100.0100 ####[facility] [address] [place], [address] CA,Total Normal 8.5-10.1 [facility] Comment on above: Result Comment: Canc elled via OM: Order cancelled - Patient discharged Performed By: #### L 500.2500, L100.0100 ####[facility] [address] [place], [address] CL Normal 98-107 [facility] Comment on above: Result Comment: Canc elled via OM: Order cancelled - Patient discharged Performed By: #### L 500.2500, L100.0100 ####[facility] [address] [place], [address] CO2 Normal 21.0-32.0 [facility] Comment on above: Result Comment: Canc elled via OM: Order cancelled - Patient discharged Performed By: #### L 500.2500, L100.0100 ####[facility] [address] [place], [address] CREAT,SERUM Normal 0.55-1.02 [facility] Comment on above: Result Comment: Canc elled via OM: Order cancelled - Patient discharged Performed By: #### L 500.2500, L100.0100 ####[facility] [address] [place], [address] EST GFR Normal >60 [facility] Comment on above: Result Comment: Canc elled via OM: Order cancelled - Patient discharged Performed By: #### L 500.2500, L100.0100 ####[facility] [address] [place], [address] EST GFR - AA Normal >60 [facility] Comment on above: Result Comment: Canc elled via OM: Order cancelled - Patient discharged Performed By: #### L 500.2500, L100.0100 ####[facility] [address] [place], [address] GAP Normal 5-15 [facility] Comment on above: Result Comment: Canc elled via OM: Order cancelled - Patient discharged Performed By: #### L 500.2500, L100.0100 ####[facility] [address] [place], [address] GLU Normal 74-106 [facility] Comment on above: Result Comment: Canc elled via OM: Order cancelled - Patient discharged Performed By: #### L 500.2500, L100.0100 ####[facility] [address] [place], [address] Potassium Normal 3.5-5.1 [facility] Comment on above: Result Comment: Canc elled via OM: Order cancelled - Patient discharged Performed By: #### L 500.2500, L100.0100 ####[facility] [address] [place], [address] Basic Metabolic Profile (BMP) Normal 136-145 [facility] Comment on above: Result Comment: Canc elled via OM: Order cancelled - Patient discharged Performed By: #### L 500.2500, L100.0100 ####[facility] [address] [place], [address] CBC W/Diff, Automatedon 08-0 -2023 Absolute Neut Normal 2.0-7.7 [facility] Comment on above: Result Comment: Canc elled via OM: Order cancelled - Patient discharged Performed By: #### L 500.2500, L100.0100 ####[facility] [address] [place], [address] HCT Normal 37-47 [facility] Comment on above: Result Comment: Canc elled via OM: Order cancelled - Patient discharged Performed By: #### L 500.2500, L100.0100 ####[facility] [address] [place], [address] HGB Normal 12.0-15.0 [facility] Comment on above: Result Comment: Canc elled via OM: Order cancelled - Patient discharged Performed By: #### L 500.2500, L100.0100 ####[facility] [address] [place], [address] MCH Normal 27.0-32.0 [facility] Comment on above: Result Comment: Canc elled via OM: Order cancelled - Patient discharged Performed By: #### L 500.2500, L100.0100 ####[facility] [address] [place], [address] MCHC Normal 32-36 [facility] Comment on above: Result Comment: Canc elled via OM: Order cancelled - Patient discharged Performed By: #### L 500.2500, L100.0100 ####[facility] [address] [place], [address] MCV Normal 81-99 [facility] Comment on above: Result Comment: Canc elled via OM: Order cancelled - Patient discharged Performed By: #### L 500.2500, L100.0100 ####[facility] [address] [place], [address] NEUT% Normal 47-70 [facility] Comment on above: Result Comment: Canc elled via OM: Order cancelled - Patient discharged Performed By: #### L 500.2500, L100.0100 ####[facility] [address] [place], [address] PLT Normal 150-450 [facility] Comment on above: Result Comment: Canc elled via OM: Order cancelled - Patient discharged Performed By: #### L 500.2500, L100.0100 ####[facility] [address] [place], [address] RBC Normal 4.2-5.4 [facility] Comment on above: Result Comment: Canc elled via OM: Order cancelled - Patient discharged Performed By: #### L 500.2500, L100.0100 ####[facility] [address] [place], [address] RDW CV Normal 11.6-14.6 [facility] Comment on above: Result Comment: Canc elled via OM: Order cancelled - Patient discharged Performed By: #### L 500.2500, L100.0100 ####[facility] [address] [place], [address] RDW SD Normal 35.1-43.9 [facility] Comment on above: Result Comment: Canc elled via OM: Order cancelled - Patient discharged Performed By: #### L 500.2500, L100.0100 ####[facility] [address] [place], [address] WBC Normal 4.4-11.0 [facility] Comment on above: Result Comment: Canc elled via OM: Order cancelled - Patient discharged Performed By: #### L 500.2500, L100.0100 ####[facility] [address], [address] Basic Metabolic Profile (BMP )on 11-19-2023 BUN Normal 7-18 [facility] Comment on above: Result Comment: Canc elled via OM: Order cancelled - Patient discharged Performed By: #### L 100.0100, L500.2500 ####[facility] [address] [place], [address] BUN/CRE Normal 10-20 [facility] Comment on above: Result Comment: Canc elled via OM: Order cancelled - Patient discharged Performed By: #### L 100.0100, L500.2500 ####[facility] [address] [place], [address] CA,Total Normal 8.5-10.1 [facility] Comment on above: Result Comment: Canc elled via OM: Order cancelled - Patient discharged Performed By: #### L 100.0100, L500.2500 ####[facility] [address], [address] CL Normal 98-107 [facility] Comment on above: Result Comment: Canc elled via OM: Order cancelled - Patient discharged Performed By: #### L 100.0100, L500.2500 ####[facility] [address] [place], [address] CO2 Normal 21.0-32.0 [facility] Comment on above: Result Comment: Canc elled via OM: Order cancelled - Patient discharged Performed By: #### L 100.0100, L500.2500 ####[facility] [address] [place], [address] CREAT,SERUM Normal 0.55-1.02 [facility] Comment on above: Result Comment: Canc elled via OM: Order cancelled - Patient discharged Performed By: #### L 100.0100, L500.2500 ####[facility] [address], [address] EST GFR Normal >60 [facility] Comment on above: Result Comment: Canc elled via OM: Order cancelled - Patient discharged Performed By: #### L 100.0100, L500.2500 ####[facility] [address] [place], [address] EST GFR - AA Normal >60 [facility] Comment on above: Result Comment: Canc elled via OM: Order cancelled - Patient discharged Performed By: #### L 100.0100, L500.2500 ####[facility] [address] [place], [address] GAP Normal 5-15 [facility] Comment on above: Result Comment: Canc elled via OM: Order cancelled - Patient discharged Performed By: #### L 100.0100, L500.2500 ####[facility] [address], [address] GLU Normal 74-106 [facility] Comment on above: Result Comment: Canc elled via OM: Order cancelled - Patient discharged Performed By: #### L 100.0100, L500.2500 ####[facility] [address] [place], [address] Potassium Normal 3.5-5.1 [facility] Comment on above: Result Comment: Canc elled via OM: Order cancelled - Patient discharged Performed By: #### L 100.0100, L500.2500 ####[facility] [address] [place], [address] Basic Metabolic Profile (BMP) Normal 136-145 [facility] Comment on above: Result Comment: Canc elled via OM: Order cancelled - Patient discharged Performed By: #### L 100.0100, L500.2500 ####[facility] [address] [place], [address] CBC W/Diff, Automatedon 08-0 -2023 Absolute Neut Normal 2.0-7.7 [facility] Comment on above: Result Comment: Canc elled via OM: Order cancelled - Patient discharged Performed By: #### L 100.0100, L500.2500 ####[facility] [address] [place], [address] HCT Normal 37-47 [facility] Comment on above: Result Comment: Canc elled via OM: Order cancelled - Patient discharged Performed By: #### L 100.0100, L500.2500 ####[facility] [address] [place], [address] HGB Normal 12.0-15.0 [facility] Comment on above: Result Comment: Canc elled via OM: Order cancelled - Patient discharged Performed By: #### L 100.0100, L500.2500 ####[facility] [address], [address] MCH Normal 27.0-32.0 [facility] Comment on above: Result Comment: Canc elled via OM: Order cancelled - Patient discharged Performed By: #### L 100.0100, L500.2500 ####[facility] [address] [place], [address] MCHC Normal 32-36 [facility] Comment on above: Result Comment: Canc elled via OM: Order cancelled - Patient discharged Performed By: #### L 100.0100, L500.2500 ####[facility] [address] [place], [address] MCV Normal 81-99 [facility] Comment on above: Result Comment: Canc elled via OM: Order cancelled - Patient discharged Performed By: #### L 100.0100, L500.2500 ####[facility] [address] [place], [address] NEUT% Normal 47-70 [facility] Comment on above: Result Comment: Canc elled via OM: Order cancelled - Patient discharged Performed By: #### L 100.0100, L500.2500 ####[facility] [address] [place], [address] PLT Normal 150-450 [facility] Comment on above: Result Comment: Canc elled via OM: Order cancelled - Patient discharged Performed By: #### L 100.0100, L500.2500 ####[facility] [address] [place], [address] RBC Normal 4.2-5.4 [facility] Comment on above: Result Comment: Canc elled via OM: Order cancelled - Patient discharged Performed By: #### L 100.0100, L500.2500 ####[facility] [address] [place], [address] RDW CV Normal 11.6-14.6 [facility] Comment on above: Result Comment: Canc elled via OM: Order cancelled - Patient discharged Performed By: #### L 100.0100, L500.2500 ####[facility] [address] [place], [address] RDW SD Normal 35.1-43.9 [facility] Comment on above: Result Comment: Canc elled via OM: Order cancelled - Patient discharged Performed By: #### L 100.0100, L500.2500 ####[facility] [address] [place], [address] WBC Normal 4.4-11.0 [facility] Comment on above: Result Comment: Canc elled via OM: Order cancelled - Patient discharged Performed By: #### L 100.0100, L500.2500 ####[facility] [address] [place], [address] Basic Metabolic Profile (BMP )on 11-18-2023 BUN/CRE 17.4 RATIO Normal 10-20 [facility] Comment on above: Performed By: #### L 100.0100, L500.2500 ####[facility] [address] [place], [address] CA,Total 8.7 mg/dL Normal 8.5-10.1 [facility] Comment on above: Performed By: #### L 100.0100, L500.2500 ####[facility] [address] [place], [address] Chloride [Moles/Vol] 105 mmol/L Normal 98-107 [facility] Comment on above: Performed By: #### L 100.0100, L500.2500 ####[facility] [address] [place], [address] CO2 [Moles/Vol] 26.0 mmol/L Normal 21.0-32.0 [facility] Comment on above: Performed By: #### L 100.0100, L500.2500 ####[facility] [address] [place], [address] Creatinine [Mass/Vol] 0.63 mg/dL Normal 0.55-1.02 [facility] Comment on above: Result Comment: The validity of the calculated GFR GFRAA in patients over70 years has not been determined. Clinical correlation isessential. Performed By: #### L 100.0100, L500.2500 ####[facility] [address] [place], [address] ECRCL 49.96 ml/min Normal [facility] Comment on above: Performed By: #### L 100.0100, L500.2500 ####[facility] [address] [place], [address] EST GFR - AA 117 mL/min Normal >60 [facility] Comment on above: Result Comment: Afri can Georgian GFR Calc Performed By: #### L 100.0100, L500.2500 ####[facility] [address] [place], [address] GAP 5 Normal 5-15 [facility] Comment on above: Performed By: #### L 100.0100, L500.2500 ####[facility] [address] [place], [address] GFR/1.73 sq M.predicted among non-blacks MDRD (S/P/Bld) [Vol rate/Area] 97 mL/min/{1.73_m2} Normal >60 [facility] Comment on above: Result Comment: Non- GFR Calc Performed By: #### L 100.0100, L500.2500 ####[facility] [address] [place], [address] Glucose [Mass/Vol] 102 mg/dL Normal 74-106 [facility] Comment on above: Result Comment: Fast ing Glucose result from 100 to 125 mg/dLsuggests IMPAIRED HOMEOSTASIS per A.D.A. criteria. Performed By: #### L 100.0100, L500.2500 ####[facility] [address] [place], [address] Potassium [Moles/Vol] 4.3 mmol/L Normal 3.5-5.1 [facility] Comment on above: Performed By: #### L 100.0100, L500.2500 ####[facility] [address] [place], [address] Sodium [Moles/Vol] 136 mmol/L Normal 136-145 [facility] Comment on above: Performed By: #### L 100.0100, L500.2500 ####[facility] [address] [place], [address] Urea nitrogen [Mass/Vol] 11 mg/dL Normal 7-18 [facility] Comment on above: Performed By: #### L 100.0100, L500.2500 ####[facility] [address] [place], [address] CBC W/Diff, Automatedon 08-0 7-4 Absolute Lymph 0.98 X10 3/uL Normal 0.83-4.51 [facility] Comment on above: Performed By: #### L 100.0100, L500.2500 ####[facility] [address] [place], [address] Absolute Neut 3.8 X10 3/uL Normal 2.0-7.7 [facility] Comment on above: Performed By: #### L 100.0100, L500.2500 ####[facility] [address] [place], [address] Basophils/100 WBC (Bld) 0.5 % Normal 0-1 [facility] Comment on above: Performed By: #### L 100.0100, L500.2500 ####[facility] [address] [place], [address] Eosinophils/100 WBC (Bld) 6.3 % High 0-5 [facility] Comment on above: Performed By: #### L 100.0100, L500.2500 ####[facility] [address] [place], [address] Erythrocyte distribution width (RBC) [Ratio] 15.1 % High 11.6-14.6 [facility] Comment on above: Performed By: #### L 100.0100, L500.2500 ####[facility] [address] [place], [address] Hematocrit (Bld) [Volume fraction] 24.2 % Low 37-47 [facility] Comment on above: Performed By: #### L 100.0100, L500.2500 ####[facility] [address] [place], [address] Hemoglobin (Bld) [Mass/Vol] 8.0 g/dL Low 12.0-15.0 [facility] Comment on above: Performed By: #### L 100.0100, L500.2500 ####[facility] [address] [place], [address] IG% 1.200 High 0.0-0.9 [facility] Comment on above: Result Comment: IG% - Immature Granulocytes (promyelocytes, myelocytes andmetamyelocytes) > 1% indicates that a LEFT SHIFT is Present. Performed By: #### L 100.0100, L500.2500 ####[facility] [address] [place], [address] Lymphocytes/100 WBC (Bld) 17.1 % Low 19-41 [facility] Comment on above: Performed By: #### L 100.0100, L500.2500 ####[facility] [address] [place], [address] MCH (RBC) [Entitic mass] 30.0 pg Normal 27.0-32.0 [facility] Comment on above: Performed By: #### L 100.0100, L500.2500 ####[facility] [address] [place], [address] MCHC (RBC) [Mass/Vol] 33.1 g/dL Normal 32-36 [facility] Comment on above: Performed By: #### L 100.0100, L500.2500 ####[facility] [address] [place], [address] MCV (RBC) [Entitic vol] 90.6 fL Normal 81-99 [facility] Comment on above: Performed By: #### L 100.0100, L500.2500 ####[facility] [address] [place], [address] Monocytes/100 WBC (Bld) 9.1 % Normal 0-10 [facility] Comment on above: Performed By: #### L 100.0100, L500.2500 ####[facility] [address] [place], [address] Neutrophils/100 WBC (Bld) 65.8 % Normal 47-70 [facility] Comment on above: Performed By: #### L 100.0100, L500.2500 ####[facility] [address] [place], [address] Nucleated RBC (Bld) [#/Vol] 0 10*3/uL Normal 0-5 [facility] Comment on above: Performed By: #### L 100.0100, L500.2500 ####[facility] [address] [place], [address] Platelet mean volume (Bld) [Entitic vol] 9.1 fL Normal 6.2-12.0 [facility] Comment on above: Performed By: #### L 100.0100, L500.2500 ####[facility] [address] [place], [address] Platelets (Bld) [#/Vol] 213 10*3/uL Normal 150-450 [facility] Comment on above: Performed By: #### L 100.0100, L500.2500 ####[facility] [address] [place], [address] RBC (Bld) [#/Vol] 2.67 10*6/uL Low 4.2-5.4 [facility] Comment on above: Performed By: #### L 100.0100, L500.2500 ####[facility] [address] [place], [address] RDW SD 49.7 fl High 35.1-43.9 [facility] Comment on above: Performed By: #### L 100.0100, L500.2500 ####[facility] [address] [place], [address] WBC (Bld) [#/Vol] 5.7 10*3/uL Normal 4.4-11.0 [facility] Comment on above: Performed By: #### L 100.0100, L500.2500 ####[facility] [address] [place], [address] Basic Metabolic Profile (BMP )on 11-17-2023 BUN/CRE 15.9 RATIO Normal 10-20 [facility] Comment on above: Performed By: #### L 100.0100, L500.2500 ####[facility] [address] [place], [address] CA,Total 8.2 mg/dL Low 8.5-10.1 [facility] Comment on above: Performed By: #### L 100.0100, L500.2500 ####[facility] [address] [place], [address] Chloride [Moles/Vol] 106 mmol/L Normal 98-107 [facility] Comment on above: Performed By: #### L 100.0100, L500.2500 ####[facility] [address] [place], [address] CO2 [Moles/Vol] 27.0 mmol/L Normal 21.0-32.0 [facility] Comment on above: Performed By: #### L 100.0100, L500.2500 ####[facility] [address] [place], [address] Creatinine [Mass/Vol] 0.63 mg/dL Normal 0.55-1.02 [facility] Comment on above: Result Comment: The validity of the calculated GFR GFRAA in patients over70 years has not been determined. Clinical correlation isessential. Performed By: #### L 100.0100, L500.2500 ####[facility] [address] [place], [address] ECRCL 49.96 ml/min Normal [facility] Comment on above: Performed By: #### L 100.0100, L500.2500 ####[facility] [address] [place], [address] EST GFR - AA 117 mL/min Normal >60 [facility] Comment on above: Result Comment: Afri can Georgian GFR Calc Performed By: #### L 100.0100, L500.2500 ####[facility] [address] [place], [address] GAP 4 Low 5-15 [facility] Comment on above: Performed By: #### L 100.0100, L500.2500 ####[facility] [address] [place], [address] GFR/1.73 sq M.predicted among non-blacks MDRD (S/P/Bld) [Vol rate/Area] 97 mL/min/{1.73_m2} Normal >60 [facility] Comment on above: Result Comment: Non- GFR Calc Performed By: #### L 100.0100, L500.2500 ####[facility] [address] [place], [address] Glucose [Mass/Vol] 106 mg/dL Normal 74-106 [facility] Comment on above: Result Comment: Fast ing Glucose result from 100 to 125 mg/dLsuggests IMPAIRED HOMEOSTASIS per A.D.A. criteria. Performed By: #### L 100.0100, L500.2500 ####[facility] [address] [place], [address] Potassium [Moles/Vol] 3.6 mmol/L Normal 3.5-5.1 [facility] Comment on above: Performed By: #### L 100.0100, L500.2500 ####[facility] [address] [place], [address] Sodium [Moles/Vol] 137 mmol/L Normal 136-145 [facility] Comment on above: Performed By: #### L 100.0100, L500.2500 ####[facility] [address] [place], [address] Urea nitrogen [Mass/Vol] 10 mg/dL Normal 7-18 [facility] Comment on above: Performed By: #### L 100.0100, L500.2500 ####[facility] [address] [place], [address] CBC W/Diff, Automatedon 08-0 6-2024 Absolute Lymph 0.82 X10 3/uL Low 0.83-4.51 [facility] Comment on above: Performed By: #### L 100.0100, L500.2500 ####[facility] [address] [place], [address] Absolute Neut 5.0 X10 3/uL Normal 2.0-7.7 [facility] Comment on above: Performed By: #### L 100.0100, L500.2500 ####[facility] [address] [place], [address] Basophils/100 WBC (Bld) 0.5 % Normal 0-1 [facility] Comment on above: Performed By: #### L 100.0100, L500.2500 ####[facility] [address] [place], [address] Eosinophils/100 WBC (Bld) 3.5 % Normal 0-5 [facility] Comment on above: Performed By: #### L 100.0100, L500.2500 ####[facility] [address] [place], [address] Erythrocyte distribution width (RBC) [Ratio] 15.2 % High 11.6-14.6 [facility] Comment on above: Performed By: #### L 100.0100, L500.2500 ####[facility] [address] [place], [address] Hematocrit (Bld) [Volume fraction] 24.5 % Low 37-47 [facility] Comment on above: Performed By: #### L 100.0100, L500.2500 ####[facility] [address] [place], [address] Hemoglobin (Bld) [Mass/Vol] 8.1 g/dL Low 12.0-15.0 [facility] Comment on above: Performed By: #### L 100.0100, L500.2500 ####[facility] [address] [place], [address] IG% 0.800 Normal 0.0-0.9 [facility] Comment on above: Result Comment: IG% - Immature Granulocytes (promyelocytes, myelocytes andmetamyelocytes) > 1% indicates that a LEFT SHIFT is Present. Performed By: #### L 100.0100, L500.2500 ####[facility] [address] [place], [address] Lymphocytes/100 WBC (Bld) 12.3 % Low 19-41 [facility] Comment on above: Performed By: #### L 100.0100, L500.2500 ####[facility] [address] [place], [address] MCH (RBC) [Entitic mass] 29.9 pg Normal 27.0-32.0 [facility] Comment on above: Performed By: #### L 100.0100, L500.2500 ####[facility] [address] [place], [address] MCHC (RBC) [Mass/Vol] 33.1 g/dL Normal 32-36 [facility] Comment on above: Performed By: #### L 100.0100, L500.2500 ####[facility] [address] [place], [address] MCV (RBC) [Entitic vol] 90.4 fL Normal 81-99 [facility] Comment on above: Performed By: #### L 100.0100, L500.2500 ####[facility] [address] [place], [address] Monocytes/100 WBC (Bld) 8.1 % Normal 0-10 [facility] Comment on above: Performed By: #### L 100.0100, L500.2500 ####[facility] [address] [place], [address] Neutrophils/100 WBC (Bld) 74.8 % High 47-70 [facility] Comment on above: Performed By: #### L 100.0100, L500.2500 ####[facility] [address] [place], [address] Nucleated RBC (Bld) [#/Vol] 0 10*3/uL Normal 0-5 [facility] Comment on above: Performed By: #### L 100.0100, L500.2500 ####[facility] [address] [place], [address] Platelet mean volume (Bld) [Entitic vol] 10.6 fL Normal 6.2-12.0 [facility] Comment on above: Performed By: #### L 100.0100, L500.2500 ####[facility] [address] [place], [address] Platelets (Bld) [#/Vol] 203 10*3/uL Normal 150-450 [facility] Comment on above: Performed By: #### L 100.0100, L500.2500 ####[facility] [address] [place], [address] RBC (Bld) [#/Vol] 2.71 10*6/uL Low 4.2-5.4 [facility] Comment on above: Performed By: #### L 100.0100, L500.2500 ####[facility] [address] [place], [address] RDW SD 50.3 fl High 35.1-43.9 [facility] Comment on above: Performed By: #### L 100.0100, L500.2500 ####[facility] [address] [place], [address] WBC (Bld) [#/Vol] 6.7 10*3/uL Normal 4.4-11.0 [facility] Comment on above: Performed By: #### L 100.0100, L500.2500 ####[facility] [address] [place], [address] Basic Metabolic Profile (BMP )on 11-16-2023 BUN/CRE 14.9 RATIO Normal 10-20 [facility] Comment on above: Performed By: #### L 500.2500, L100.0100 ####[facility] [address] [place], [address] CA,Total 8.4 mg/dL Low 8.5-10.1 [facility] Comment on above: Performed By: #### L 500.2500, L100.0100 ####[facility] [address] [place], [address] Chloride [Moles/Vol] 103 mmol/L Normal 98-107 [facility] Comment on above: Performed By: #### L 500.2500, L100.0100 ####[facility] [address] [place], [address] CO2 [Moles/Vol] 24.0 mmol/L Normal 21.0-32.0 [facility] Comment on above: Performed By: #### L 500.2500, L100.0100 ####[facility] [address] [place], [address] Creatinine [Mass/Vol] 0.74 mg/dL Normal 0.55-1.02 [facility] Comment on above: Result Comment: The validity of the calculated GFR GFRAA in patients over70 years has not been determined. Clinical correlation isessential. Performed By: #### L 500.2500, L100.0100 ####[facility] [address] [place], [address] ECRCL 49.96 ml/min Normal [facility] Comment on above: Performed By: #### L 500.2500, L100.0100 ####[facility] [address] [place], [address] EST GFR - AA 98 mL/min Normal >60 [facility] Comment on above: Result Comment: Afri can Georgian GFR Calc Performed By: #### L 500.2500, L100.0100 ####[facility] [address] [place], [address] GAP 7 Normal 5-15 [facility] Comment on above: Performed By: #### L 500.2500, L100.0100 ####[facility] [address] [place], [address] GFR/1.73 sq M.predicted among non-blacks MDRD (S/P/Bld) [Vol rate/Area] 81 mL/min/{1.73_m2} Normal >60 [facility] Comment on above: Result Comment: Non- GFR Calc Performed By: #### L 500.2500, L100.0100 ####[facility] [address] [place], [address] Glucose [Mass/Vol] 116 mg/dL High 74-106 [facility] Comment on above: Result Comment: Fast ing Glucose result from 100 to 125 mg/dLsuggests IMPAIRED HOMEOSTASIS per A.D.A. criteria. Performed By: #### L 500.2500, L100.0100 ####[facility] [address] [place], [address] Potassium [Moles/Vol] 3.6 mmol/L Normal 3.5-5.1 [place] Comment on above: Performed By: #### L 500.2500, L100.0100 ####[facility] [address] [place], [address] Sodium [Moles/Vol] 134 mmol/L Low 136-145 [facility] Comment on above: Performed By: #### L 500.2500, L100.0100 ####[facility] [address] [place], [address] Urea nitrogen [Mass/Vol] 11 mg/dL Normal 7-18 [facility] Comment on above: Performed By: #### L 500.2500, L100.0100 ####[facility] [address] [place], [address] CBC W/Diff, Automatedon 08-0 -2023 Absolute Lymph 1.09 X10 3/uL Normal 0.83-4.51 [facility] Comment on above: Performed By: #### L 500.2500, L100.0100 ####[facility] [address] [place], [address] Absolute Neut 6.6 X10 3/uL Normal 2.0-7.7 [facility] Comment on above: Performed By: #### L 500.2500, L100.0100 ####[facility] [address] [place], [address] Basophils/100 WBC (Bld) 0.4 % Normal 0-1 [facility] Comment on above: Performed By: #### L 500.2500, L100.0100 ####[facility] [address] [place], [address] Eosinophils/100 WBC (Bld) 0.7 % Normal 0-5 [facility] Comment on above: Performed By: #### L 500.2500, L100.0100 ####[facility] [address] [place], [address] Erythrocyte distribution width (RBC) [Ratio] 15.2 % High 11.6-14.6 [facility] Comment on above: Performed By: #### L 500.2500, L100.0100 ####[facility] [address] [place], [address] Hematocrit (Bld) [Volume fraction] 28.3 % Low 37-47 [facility] Comment on above: Performed By: #### L 500.2500, L100.0100 ####[facility] [address] [place], [address] Hemoglobin (Bld) [Mass/Vol] 9.3 g/dL Low 12.0-15.0 [facility] Comment on above: Performed By: #### L 500.2500, L100.0100 ####[facility] [address] [place], [address] IG% 0.600 Normal 0.0-0.9 [facility] Comment on above: Result Comment: IG% - Immature Granulocytes (promyelocytes, myelocytes andmetamyelocytes) > 1% indicates that a LEFT SHIFT is Present. Performed By: #### L 500.2500, L100.0100 ####[facility] [address] [place], [address] Lymphocytes/100 WBC (Bld) 12.9 % Low 19-41 [facility] Comment on above: Performed By: #### L 500.2500, L100.0100 ####[facility] [address] [place], [address] MCH (RBC) [Entitic mass] 30.0 pg Normal 27.0-32.0 [facility] Comment on above: Performed By: #### L 500.2500, L100.0100 ####[facility] [address] [place], [address] MCHC (RBC) [Mass/Vol] 32.9 g/dL Normal 32-36 [facility] Comment on above: Performed By: #### L 500.2500, L100.0100 ####[facility] [address] [place], [address] MCV (RBC) [Entitic vol] 91.3 fL Normal 81-99 [facility] Comment on above: Performed By: #### L 500.2500, L100.0100 ####[facility] [address] [place], [address] Monocytes/100 WBC (Bld) 7.8 % Normal 0-10 [facility] Comment on above: Performed By: #### L 500.2500, L100.0100 ####[facility] [address] [place], [address] Neutrophils/100 WBC (Bld) 77.6 % High 47-70 [facility] Comment on above: Performed By: #### L 500.2500, L100.0100 ####[facility] [address] [place], [address] Nucleated RBC (Bld) [#/Vol] 0 10*3/uL Normal 0-5 [facility] Comment on above: Performed By: #### L 500.2500, L100.0100 ####[facility] [address] [place], [address] Platelet mean volume (Bld) [Entitic vol] 10.0 fL Normal 6.2-12.0 [facility] Comment on above: Performed By: #### L 500.2500, L100.0100 ####[facility] [address] [place], [address] Platelets (Bld) [#/Vol] 175 10*3/uL Normal 150-450 [facility] Comment on above: Performed By: #### L 500.2500, L100.0100 ####[facility] [address] [place], [address] RBC (Bld) [#/Vol] 3.10 10*6/uL Low 4.2-5.4 [facility] Comment on above: Performed By: #### L 500.2500, L100.0100 ####[facility] [address] [place], [address] RDW SD 50.5 fl High 35.1-43.9 [facility] Comment on above: Performed By: #### L 500.2500, L100.0100 ####[facility] [address] [place], [address] WBC (Bld) [#/Vol] 8.5 10*3/uL Normal 4.4-11.0 [facility] Comment on above: Performed By: #### L 500.2500, L100.0100 ####[facility] [address] [place], [address] Basic Metabolic Profile (BMP )on 11-15-2023 BUN/CRE 16.8 RATIO Normal 10-20 [facility] Comment on above: Performed By: #### L 500.2500, L100.0100 ####[facility] [address] [place], [address] CA,Total 8.5 mg/dL Normal 8.5-10.1 [facility] Comment on above: Performed By: #### L 500.2500, L100.0100 ####[facility] [address] [place], [address] Chloride [Moles/Vol] 106 mmol/L Normal 98-107 [facility] Comment on above: Performed By: #### L 500.2500, L100.0100 ####[facility] [address] [place], [address] CO2 [Moles/Vol] 24.0 mmol/L Normal 21.0-32.0 [facility] Comment on above: Performed By: #### L 500.2500, L100.0100 ####[facility] [address] [place], [address] Creatinine [Mass/Vol] 0.78 mg/dL Normal 0.55-1.02 [facility] Comment on above: Result Comment: The validity of the calculated GFR GFRAA in patients over70 years has not been determined. Clinical correlation isessential. Performed By: #### L 500.2500, L100.0100 ####[facility] [address] [place], [address] ECRCL 49.96 ml/min Normal [facility] Comment on above: Performed By: #### L 500.2500, L100.0100 ####[facility] [address] [place], [address] EST GFR - AA 92 mL/min Normal >60 [facility] Comment on above: Result Comment: Afri can Georgian GFR Calc Performed By: #### L 500.2500, L100.0100 ####[facility] [address] [place], [address] GAP 6 Normal 5-15 [facility] Comment on above: Performed By: #### L 500.2500, L100.0100 ####[facility] [address] [place], [address] GFR/1.73 sq M.predicted among non-blacks MDRD (S/P/Bld) [Vol rate/Area] 76 mL/min/{1.73_m2} Normal >60 [facility] Comment on above: Result Comment: Non- GFR Calc Performed By: #### L 500.2500, L100.0100 ####[facility] [address] [place], [address] Glucose [Mass/Vol] 96 mg/dL Normal 74-106 [facility] Comment on above: Performed By: #### L 500.2500, L100.0100 ####[facility] [address] [place], [address] Potassium [Moles/Vol] 3.7 mmol/L Normal 3.5-5.1 [place] Comment on above: Performed By: #### L 500.2500, L100.0100 ####[facility] [address] [place], [address] Sodium [Moles/Vol] 136 mmol/L Normal 136-145 [facility] Comment on above: Performed By: #### L 500.2500, L100.0100 ####[facility] [address] [place], [address] Urea nitrogen [Mass/Vol] 13 mg/dL Normal 7-18 [facility] Comment on above: Performed By: #### L 500.2500, L100.0100 ####[facility] [address] [place], [address] CBC W/Diff, Automatedon 08-0 -2023 Absolute Lymph 1.26 X10 3/uL Normal 0.83-4.51 [facility] Comment on above: Performed By: #### L 500.2500, L100.0100 ####[facility] [address] [place], [address] Absolute Neut 4.8 X10 3/uL Normal 2.0-7.7 [facility] Comment on above: Performed By: #### L 500.2500, L100.0100 ####[facility] [address] [place], [address] Basophils/100 WBC (Bld) 0.9 % Normal 0-1 [facility] Comment on above: Performed By: #### L 500.2500, L100.0100 ####[facility] [address] [place], [address] Eosinophils/100 WBC (Bld) 2.5 % Normal 0-5 [facility] Comment on above: Performed By: #### L 500.2500, L100.0100 ####[facility] [address] [place], [address] Erythrocyte distribution width (RBC) [Ratio] 14.8 % High 11.6-14.6 [facility] Comment on above: Performed By: #### L 500.2500, L100.0100 ####[facility] [address] [place], [address] Hematocrit (Bld) [Volume fraction] 30.4 % Low 37-47 [facility] Comment on above: Performed By: #### L 500.2500, L100.0100 ####[facility] [address] [place], [address] Hemoglobin (Bld) [Mass/Vol] 9.8 g/dL Low 12.0-15.0 [facility] Comment on above: Performed By: #### L 500.2500, L100.0100 ####[facility] [address] [place], [address] IG% 0.600 Normal 0.0-0.9 [facility] Comment on above: Result Comment: IG% - Immature Granulocytes (promyelocytes, myelocytes andmetamyelocytes) > 1% indicates that a LEFT SHIFT is Present. Performed By: #### L 500.2500, L100.0100 ####[facility] [address] [place], [address] Lymphocytes/100 WBC (Bld) 18.2 % Low 19-41 [facility] Comment on above: Performed By: #### L 500.2500, L100.0100 ####[facility] [address] [place], [address] MCH (RBC) [Entitic mass] 29.3 pg Normal 27.0-32.0 [facility] Comment on above: Performed By: #### L 500.2500, L100.0100 ####[facility] [address] [place], [address] MCHC (RBC) [Mass/Vol] 32.2 g/dL Normal 32-36 [facility] Comment on above: Performed By: #### L 500.2500, L100.0100 ####[facility] [address] [place], [address] MCV (RBC) [Entitic vol] 91.0 fL Normal 81-99 [facility] Comment on above: Performed By: #### L 500.2500, L100.0100 ####[facility] [address] [place], [address] Monocytes/100 WBC (Bld) 8.2 % Normal 0-10 [facility] Comment on above: Performed By: #### L 500.2500, L100.0100 ####[facility] [address] [place], [address] Neutrophils/100 WBC (Bld) 69.6 % Normal 47-70 [facility] Comment on above: Performed By: #### L 500.2500, L100.0100 ####[facility] [address] [place], [address] Nucleated RBC (Bld) [#/Vol] 0 10*3/uL Normal 0-5 [facility] Comment on above: Performed By: #### L 500.2500, L100.0100 ####[facility] [address] [place], [address] Platelet mean volume (Bld) [Entitic vol] 10.7 fL Normal 6.2-12.0 [facility] Comment on above: Performed By: #### L 500.2500, L100.0100 ####[facility] [address] [place], [address] Platelets (Bld) [#/Vol] 177 10*3/uL Normal 150-450 [facility] Comment on above: Performed By: #### L 500.2500, L100.0100 ####[facility] [address] [place], [address] RBC (Bld) [#/Vol] 3.34 10*6/uL Low 4.2-5.4 [facility] Comment on above: Performed By: #### L 500.2500, L100.0100 ####[facility] [address] [place], [address] RDW SD 49.4 fl High 35.1-43.9 [facility] Comment on above: Performed By: #### L 500.2500, L100.0100 ####[facility] [address] [place], [address] WBC (Bld) [#/Vol] 6.9 10*3/uL Normal 4.4-11.0 [facility] Comment on above: Performed By: #### L 500.2500, L100.0100 ####[facility] [address] [place], [address] Basic Metabolic Profile (BMP )on 11-14-2023 BUN/CRE 14.9 RATIO Normal 10-20 [facility] Comment on above: Performed By: #### L 100.0100, L500.2500 ####[facility] [address] [place], [address] CA,Total 8.4 mg/dL Low 8.5-10.1 [facility] Comment on above: Performed By: #### L 100.0100, L500.2500 ####[facility] [address] [place], [address] Chloride [Moles/Vol] 104 mmol/L Normal 98-107 [facility] Comment on above: Performed By: #### L 100.0100, L500.2500 ####[facility] [address] [place], [address] CO2 [Moles/Vol] 24.0 mmol/L Normal 21.0-32.0 [facility] Comment on above: Performed By: #### L 100.0100, L500.2500 ####[facility] [address] [place], [address] Creatinine [Mass/Vol] 0.67 mg/dL Normal 0.55-1.02 [facility] Comment on above: Result Comment: The validity of the calculated GFR GFRAA in patients over70 years has not been determined. Clinical correlation isessential. Performed By: #### L 100.0100, L500.2500 ####[facility] [address] [place], [address] ECRCL 49.96 ml/min Normal [facility] Comment on above: Performed By: #### L 100.0100, L500.2500 ####[facility] [address] [place], [address] EST GFR - AA 109 mL/min Normal >60 [facility] Comment on above: Result Comment: Afri can Georgian GFR Calc Performed By: #### L 100.0100, L500.2500 ####[facility] [address] [place], [address] GAP 6 Normal 5-15 [facility] Comment on above: Performed By: #### L 100.0100, L500.2500 ####[facility] [address] [place], [address] GFR/1.73 sq M.predicted among non-blacks MDRD (S/P/Bld) [Vol rate/Area] 90 mL/min/{1.73_m2} Normal >60 [facility] Comment on above: Result Comment: Non- GFR Calc Performed By: #### L 100.0100, L500.2500 ####[facility] [address] [place], [address] Glucose [Mass/Vol] 91 mg/dL Normal 74-106 [facility] Comment on above: Performed By: #### L 100.0100, L500.2500 ####[facility] [address] [place], [address] Potassium [Moles/Vol] 3.6 mmol/L Normal 3.5-5.1 [facility] Comment on above: Performed By: #### L 100.0100, L500.2500 ####[facility] [address] [place], [address] Sodium [Moles/Vol] 134 mmol/L Low 136-145 [facility] Comment on above: Performed By: #### L 100.0100, L500.2500 ####[facility] [address] [place], [address] Urea nitrogen [Mass/Vol] 10 mg/dL Normal 7-18 [facility] Comment on above: Performed By: #### L 100.0100, L500.2500 ####[facility] [address] [place], [address] CBC W/Diff, Automatedon 08-0 3-4 Absolute Lymph 1.06 X10 3/uL Normal 0.83-4.51 [facility] Comment on above: Performed By: #### L 100.0100, L500.2500 ####[facility] [address] [place], [address] Absolute Neut 5.2 X10 3/uL Normal 2.0-7.7 [facility] Comment on above: Performed By: #### L 100.0100, L500.2500 ####[facility] [address], [address] Basophils/100 WBC (Bld) 0.4 % Normal 0-1 [facility] Comment on above: Performed By: #### L 100.0100, L500.2500 ####[facility] [address], [address] Eosinophils/100 WBC (Bld) 2.0 % Normal 0-5 [facility] Comment on above: Performed By: #### L 100.0100, L500.2500 ####[facility] [address], [address] Erythrocyte distribution width (RBC) [Ratio] 14.9 % High 11.6-14.6 [facility] Comment on above: Performed By: #### L 100.0100, L500.2500 ####[facility] [address] [place], [address] Hematocrit (Bld) [Volume fraction] 33.1 % Low 37-47 [facility] Comment on above: Performed By: #### L 100.0100, L500.2500 ####[facility] [address] [place], [address] Hemoglobin (Bld) [Mass/Vol] 10.6 g/dL Low 12.0-15.0 [facility] Comment on above: Performed By: #### L 100.0100, L500.2500 ####[facility] [address] [place], [address] IG% 0.700 Normal 0.0-0.9 [facility] Comment on above: Result Comment: IG% - Immature Granulocytes (promyelocytes, myelocytes andmetamyelocytes) > 1% indicates that a LEFT SHIFT is Present. Performed By: #### L 100.0100, L500.2500 ####[facility] [address] [place], [address] Lymphocytes/100 WBC (Bld) 15.0 % Low 19-41 [facility] Comment on above: Performed By: #### L 100.0100, L500.2500 ####[facility] [address] [place], [address] MCH (RBC) [Entitic mass] 29.7 pg Normal 27.0-32.0 [facility] Comment on above: Performed By: #### L 100.0100, L500.2500 ####[facility] [address] [place], [address] MCHC (RBC) [Mass/Vol] 32.0 g/dL Normal 32-36 [facility] Comment on above: Performed By: #### L 100.0100, L500.2500 ####[facility] [address] [place], [address] MCV (RBC) [Entitic vol] 92.7 fL Normal 81-99 [facility] Comment on above: Performed By: #### L 100.0100, L500.2500 ####[facility] [address] [place], [address] Monocytes/100 WBC (Bld) 9.0 % Normal 0-10 [facility] Comment on above: Performed By: #### L 100.0100, L500.2500 ####[facility] [address] [place], [address] Neutrophils/100 WBC (Bld) 72.9 % High 47-70 [facility] Comment on above: Performed By: #### L 100.0100, L500.2500 ####[facility] [address] [place], [address] Nucleated RBC (Bld) [#/Vol] 0 10*3/uL Normal 0-5 [facility] Comment on above: Performed By: #### L 100.0100, L500.2500 ####[facility] [address] [place], [address] Platelet mean volume (Bld) [Entitic vol] 11.4 fL Normal 6.2-12.0 [facility] Comment on above: Performed By: #### L 100.0100, L500.2500 ####[facility] [address] [place], [address] Platelets (Bld) [#/Vol] 158 10*3/uL Normal 150-450 [facility] Comment on above: Performed By: #### L 100.0100, L500.2500 ####[facility] [address] [place], [address] RBC (Bld) [#/Vol] 3.57 10*6/uL Low 4.2-5.4 [facility] Comment on above: Performed By: #### L 100.0100, L500.2500 ####[facility] [address] [place], [address] RDW SD 50.5 fl High 35.1-43.9 [facility] Comment on above: Performed By: #### L 100.0100, L500.2500 ####[facility] [address] [place], [address] WBC (Bld) [#/Vol] 7.1 10*3/uL Normal 4.4-11.0 [facility] Comment on above: Performed By: #### L 100.0100, L500.2500 ####[facility] [address] [place], [address] Basic Metabolic Profile (BMP )on 11-13-2023 BUN/CRE 12.0 RATIO Normal 10-20 [facility] Comment on above: Performed By: #### L 300.3900, L100.0100, L500.2500, L501.9520 ####[facility] [address] [place], [address] CA,Total 8.1 mg/dL Low 8.5-10.1 [facility] Comment on above: Performed By: #### L 300.3900, L100.0100, L500.2500, L501.9520 ####[facility] [address] [place], [address] Chloride [Moles/Vol] 108 mmol/L High 98-107 [facility] Comment on above: Performed By: #### L 300.3900, L100.0100, L500.2500, L501.9520 ####[facility] [address] [place], [address] CO2 [Moles/Vol] 23.0 mmol/L Normal 21.0-32.0 [facility] Comment on above: Performed By: #### L 300.3900, L100.0100, L500.2500, L501.9520 ####[facility] [address] [place], [address] Creatinine [Mass/Vol] 0.67 mg/dL Normal 0.55-1.02 [facility] Comment on above: Result Comment: The validity of the calculated GFR GFRAA in patients over70 years has not been determined. Clinical correlation isessential. Performed By: #### L 300.3900, L100.0100, L500.2500, L501.9520 ####[facility] [address] [place], [address] ECRCL 49.96 ml/min Normal [facility] Comment on above: Performed By: #### L 300.3900, L100.0100, L500.2500, L501.9520 ####[facility] [address] [place], [address] EST GFR - AA 110 mL/min Normal >60 [facility] Comment on above: Result Comment: Afri can Georgian GFR Calc Performed By: #### L 300.3900, L100.0100, L500.2500, L501.9520 ####[facility] [address] [place], [address] GAP 6 Normal 5-15 [facility] Comment on above: Performed By: #### L 300.3900, L100.0100, L500.2500, L501.9520 ####[facility] [address] [place], [address] GFR/1.73 sq M.predicted among non-blacks MDRD (S/P/Bld) [Vol rate/Area] 91 mL/min/{1.73_m2} Normal >60 [facility] Comment on above: Result Comment: Non- GFR Calc Performed By: #### L 300.3900, L100.0100, L500.2500, L501.9520 ####[facility] [address] [place], [address] Glucose [Mass/Vol] 112 mg/dL High 74-106 [facility] Comment on above: Result Comment: Fast ing Glucose result from 100 to 125 mg/dLsuggests IMPAIRED HOMEOSTASIS per A.D.A. criteria. Performed By: #### L 300.3900, L100.0100, L500.2500, L501.9520 ####[facility] [id number] [place], [address] Potassium [Moles/Vol] 3.6 mmol/L Normal 3.5-5.1 [place] Comment on above: Performed By: #### L 300.3900, L100.0100, L500.2500, L501.9520 ####[facility] [id number] [place], [address] Sodium [Moles/Vol] 137 mmol/L Normal 136-145 [facility] Comment on above: Performed By: #### L 300.3900, L100.0100, L500.2500, L501.9520 ####[facility] [id number] [place], [address] Urea nitrogen [Mass/Vol] 8 mg/dL Normal 7-18 [facility] Comment on above: Performed By: #### L 300.3900, L100.0100, L500.2500, L501.9520 ####[facility] [id number] [place], [address] CBC W/Diff, Automatedon 08-0 2-2023 Absolute Lymph 0.80 X10 3/uL Low 0.83-4.51 [facility] Comment on above: Performed By: #### L 300.3900, L100.0100, L500.2500, L501.9520 ####[facility] [address] [place], [address] Absolute Neut 3.7 X10 3/uL Normal 2.0-7.7 [facility] Comment on above: Performed By: #### L 300.3900, L100.0100, L500.2500, L501.9520 ####[facility] [address] [place], [address] Basophils/100 WBC (Bld) 0.9 % Normal 0-1 [facility] Comment on above: Performed By: #### L 300.3900, L100.0100, L500.2500, L501.9520 ####[facility] [address] [place], [address] Eosinophils/100 WBC (Bld) 4.4 % Normal 0-5 [facility] Comment on above: Performed By: #### L 300.3900, L100.0100, L500.2500, L501.9520 ####[facility] [address] [place], [address] Erythrocyte distribution width (RBC) [Ratio] 15.0 % High 11.6-14.6 [facility] Comment on above: Performed By: #### L 300.3900, L100.0100, L500.2500, L501.9520 ####[facility] [address] [place], [address] Hematocrit (Bld) [Volume fraction] 35.8 % Low 37-47 [facility] Comment on above: Performed By: #### L 300.3900, L100.0100, L500.2500, L501.9520 ####[facility] [address] [place], [address] Hemoglobin (Bld) [Mass/Vol] 11.4 g/dL Low 12.0-15.0 [facility] Comment on above: Performed By: #### L 300.3900, L100.0100, L500.2500, L501.9520 ####[facility] [address] [place], [address] IG% 0.600 Normal 0.0-0.9 [facility] Comment on above: Result Comment: IG% - Immature Granulocytes (promyelocytes, myelocytes andmetamyelocytes) > 1% indicates that a LEFT SHIFT is Present. Performed By: #### L 300.3900, L100.0100, L500.2500, L501.9520 ####[facility] [address] [place], [address] Lymphocytes/100 WBC (Bld) 15.2 % Low 19-41 [facility] Comment on above: Performed By: #### L 300.3900, L100.0100, L500.2500, L501.9520 ####[facility] [address] [place], [address] MCH (RBC) [Entitic mass] 29.2 pg Normal 27.0-32.0 [facility] Comment on above: Performed By: #### L 300.3900, L100.0100, L500.2500, L501.9520 ####[facility] [address] [place], [address] MCHC (RBC) [Mass/Vol] 31.8 g/dL Low 32-36 [facility] Comment on above: Performed By: #### L 300.3900, L100.0100, L500.2500, L501.9520 ####[facility] [address] [place], [address] MCV (RBC) [Entitic vol] 91.8 fL Normal 81-99 [facility] Comment on above: Performed By: #### L 300.3900, L100.0100, L500.2500, L501.9520 ####[facility] [address] [place], [address] Monocytes/100 WBC (Bld) 8.9 % Normal 0-10 [facility] Comment on above: Performed By: #### L 300.3900, L100.0100, L500.2500, L501.9520 ####[facility] [address] [place], [address] Neutrophils/100 WBC (Bld) 70.0 % Normal 47-70 [facility] Comment on above: Performed By: #### L 300.3900, L100.0100, L500.2500, L501.9520 ####[facility] [address] [place], [address] Nucleated RBC (Bld) [#/Vol] 0 10*3/uL Normal 0-5 [facility] Comment on above: Performed By: #### L 300.3900, L100.0100, L500.2500, L501.9520 ####[facility] [address] [place], [address] Platelet mean volume (Bld) [Entitic vol] 11.1 fL Normal 6.2-12.0 [facility] Comment on above: Performed By: #### L 300.3900, L100.0100, L500.2500, L501.9520 ####[facility] [address] [place], [address] Platelets (Bld) [#/Vol] 177 10*3/uL Normal 150-450 [facility] Comment on above: Performed By: #### L 300.3900, L100.0100, L500.2500, L501.9520 ####[facility] [address] [place], [address] RBC (Bld) [#/Vol] 3.90 10*6/uL Low 4.2-5.4 [facility] Comment on above: Performed By: #### L 300.3900, L100.0100, L500.2500, L501.9520 ####[facility] [address] [place], [address] RDW SD 50.3 fl High 35.1-43.9 [facility] Comment on above: Performed By: #### L 300.3900, L100.0100, L500.2500, L501.9520 ####[facility] [address] [place], [address] WBC (Bld) [#/Vol] 5.3 10*3/uL Normal 4.4-11.0 [facility] Comment on above: Performed By: #### L 300.3900, L100.0100, L500.2500, L501.9520 ####[facility] [address] [place], [address] Consultation - Orthopedicson 11-13-2023 Consultation - Orthopedics Normal [facility] Hip 1 view with Pelvison Hip 1 view with Pelvis Normal [facility] MR/POSTOP.ANEon 11-13-2023 MR/POSTOP.ANE Normal [facility] MR/SQNIAHSL7wl 11-13-2023 MR/POSTOPAN2 Normal [facility] Operative Reporton Operative Report Normal [facility] Prothrombin Time w/INRon INR Coag (PPP) [Relative time] 1.1 {INR} Normal [facility] Comment on above: Performed By: #### L 300.3900, L100.0100, L500.2500, L501.9520 ####[facility] [address] [place], [address] PT Coag (PPP) [Time] 13.7 s Normal 11.7-14.9 [facility] Comment on above: Performed By: #### L 300.3900, L100.0100, L500.2500, L501.9520 ####[facility] [address] [place], [address] Thyroid Stim Hormone (TSH)on 11-13-2023 TSH 3.44 uIU/mL Normal 0.358-3.74 [facility] Comment on above: Performed By: #### L 300.3900, L100.0100, L500.2500, L501.9520 ####[facility] [address] [place], [address] Type AND Screenon 11-13-2023 Ab SCREEN GEL Negative Normal [facility] Comment on above: Order Comment: SFRAC TURED HIP Performed By: #### B TS ####[facility] [address] [place], [address] 12 Lead EKGon 11-12-2023 12 Lead EKG Normal [facility] Basic Metabolic Profile (BMP )on 11-12-2023 BUN/CRE 12.4 RATIO Normal 10-20 [facility] Comment on above: Order Comment: 'TROP ' Serial specimen #1, #2 or #3: 1 Performed By: #### L 500.2500, L100.0100, L501.4020 ####[facility] [address] [place], [address] CA,Total 8.9 mg/dL Normal 8.5-10.1 [facility] Comment on above: Order Comment: 'TROP ' Serial specimen #1, #2 or #3: 1 Performed By: #### L 500.2500, L100.0100, L501.4020 ####[facility] [address] [place], [address] Chloride [Moles/Vol] 109 mmol/L High 98-107 [facility] Comment on above: Order Comment: 'TROP ' Serial specimen #1, #2 or #3: 1 Performed By: #### L 500.2500, L100.0100, L501.4020 ####[facility] [address] [place], [address] CO2 [Moles/Vol] 25.0 mmol/L Normal 21.0-32.0 [facility] Comment on above: Order Comment: 'TROP ' Serial specimen #1, #2 or #3: 1 Performed By: #### L 500.2500, L100.0100, L501.4020 ####[facility] [address] [place], [address] Creatinine [Mass/Vol] 0.88 mg/dL Normal 0.55-1.02 [facility] Comment on above: Order Comment: 'TROP ' Serial specimen #1, #2 or #3: 1 Result Comment: The validity of the calculated GFR GFRAA in patients over70 years has not been determined. Clinical correlation isessential. Performed By: #### L 500.2500, L100.0100, L501.4020 ####[facility] [address] [place], [address] ECRCL 47.44 ml/min Normal [facility] Comment on above: Order Comment: 'TROP ' Serial specimen #1, #2 or #3: 1 Performed By: #### L 500.2500, L100.0100, L501.4020 ####[facility] [address] [place], [address] EST GFR - AA 79 mL/min Normal >60 [facility] Comment on above: Order Comment: 'TROP ' Serial specimen #1, #2 or #3: 1 Result Comment: Afri can Georgian GFR Calc Performed By: #### L 500.2500, L100.0100, L501.4020 ####[facility] [address] [place], [address] GAP 4 Low 5-15 [facility] Comment on above: Order Comment: 'TROP ' Serial specimen #1, #2 or #3: 1 Performed By: #### L 500.2500, L100.0100, L501.4020 ####[facility] [address] [place], [address] GFR/1.73 sq M.predicted among non-blacks MDRD (S/P/Bld) [Vol rate/Area] 66 mL/min/{1.73_m2} Normal >60 [facility] Comment on above: Order Comment: 'TROP ' Serial specimen #1, #2 or #3: 1 Result Comment: Non- GFR Calc Performed By: #### L 500.2500, L100.0100, L501.4020 ####[facility] [address] [place], [address] Glucose [Mass/Vol] 130 mg/dL High 74-106 [facility] Comment on above: Order Comment: 'TROP ' Serial specimen #1, #2 or #3: 1 Result Comment: Fast ing Glucose result greater than or equal to 126 mg/dLsuggests DIABETES MELLITUS per A.D.A. criteria. Performed By: #### L 500.2500, L100.0100, L501.4020 ####[facility] [address] [place], [address] Potassium [Moles/Vol] 3.7 mmol/L Normal 3.5-5.1 [facility] Comment on above: Order Comment: 'TROP ' Serial specimen #1, #2 or #3: 1 Performed By: #### L 500.2500, L100.0100, L501.4020 ####[facility] [address] [place], [address] Sodium [Moles/Vol] 138 mmol/L Normal 136-145 [facility] Comment on above: Order Comment: 'TROP ' Serial specimen #1, #2 or #3: 1 Performed By: #### L 500.2500, L100.0100, L501.4020 ####[facility] [address] [place], [address] Urea nitrogen [Mass/Vol] 11 mg/dL Normal 7-18 [facility] Comment on above: Order Comment: 'TROP ' Serial specimen #1, #2 or #3: 1 Performed By: #### L 500.2500, L100.0100, L501.4020 ####[facility] [address] [place], [address] Brain/Head without Contrasto n 11-12-2023 Brain/Head without Contrast Normal [facility] CBC W/Diff, Automatedon 08-0 Absolute Lymph 0.74 X10 3/uL Low 0.83-4.51 [facility] Comment on above: Performed By: #### L 500.2500, L100.0100, L501.4020 ####[facility] [address] [place], [address] Absolute Neut 8.8 X10 3/uL High 2.0-7.7 [facility] Comment on above: Performed By: #### L 500.2500, L100.0100, L501.4020 ####[facility] [address] [place], [address] Basophils/100 WBC (Bld) 0.4 % Normal 0-1 [facility] Comment on above: Performed By: #### L 500.2500, L100.0100, L501.4020 ####[facility] [address] [place], [address] Eosinophils/100 WBC (Bld) 2.9 % Normal 0-5 [facility] Comment on above: Performed By: #### L 500.2500, L100.0100, L501.4020 ####[facility] [address] [place], [address] Erythrocyte distribution width (RBC) [Ratio] 14.9 % High 11.6-14.6 [facility] Comment on above: Performed By: #### L 500.2500, L100.0100, L501.4020 ####[facility] [address] [place], [address] Hematocrit (Bld) [Volume fraction] 39.2 % Normal 37-47 [facility] Comment on above: Performed By: #### L 500.2500, L100.0100, L501.4020 ####[facility] [address] [place], [address] Hemoglobin (Bld) [Mass/Vol] 12.7 g/dL Normal 12.0-15.0 [facility] Comment on above: Performed By: #### L 500.2500, L100.0100, L501.4020 ####[facility] [address] [place], [address] IG% 0.600 Normal 0.0-0.9 [facility] Comment on above: Result Comment: IG% - Immature Granulocytes (promyelocytes, myelocytes andmetamyelocytes) > 1% indicates that a LEFT SHIFT is Present. Performed By: #### L 500.2500, L100.0100, L501.4020 ####[facility] [address] [place], [address] Lymphocytes/100 WBC (Bld) 7.1 % Low 19-41 [facility] Comment on above: Performed By: #### L 500.2500, L100.0100, L501.4020 ####[facility] [address] [place], [address] MCH (RBC) [Entitic mass] 29.7 pg Normal 27.0-32.0 [facility] Comment on above: Performed By: #### L 500.2500, L100.0100, L501.4020 ####[facility] [address] [place], [address] MCHC (RBC) [Mass/Vol] 32.4 g/dL Normal 32-36 [facility] Comment on above: Performed By: #### L 500.2500, L100.0100, L501.4020 ####[facility] [address] [place], [address] MCV (RBC) [Entitic vol] 91.6 fL Normal 81-99 [facility] Comment on above: Performed By: #### L 500.2500, L100.0100, L501.4020 ####[facility] [address] [place], [address] Monocytes/100 WBC (Bld) 4.8 % Normal 0-10 [facility] Comment on above: Performed By: #### L 500.2500, L100.0100, L501.4020 ####[facility] [address] [place], [address] Neutrophils/100 WBC (Bld) 84.2 % High 47-70 [facility] Comment on above: Performed By: #### L 500.2500, L100.0100, L501.4020 ####[facility] [address] [place], [address] Nucleated RBC (Bld) [#/Vol] 0 10*3/uL Normal 0-5 [facility] Comment on above: Performed By: #### L 500.2500, L100.0100, L501.4020 ####[facility] [address] [place], [address] Platelet mean volume (Bld) [Entitic vol] 9.9 fL Normal 6.2-12.0 [facility] Comment on above: Performed By: #### L 500.2500, L100.0100, L501.4020 ####[facility] [address] [place], [address] Platelets (Bld) [#/Vol] 191 10*3/uL Normal 150-450 [facility] Comment on above: Performed By: #### L 500.2500, L100.0100, L501.4020 ####[facility] [address] [place], [address] RBC (Bld) [#/Vol] 4.28 10*6/uL Normal 4.2-5.4 [facility] Comment on above: Performed By: #### L 500.2500, L100.0100, L501.4020 ####[facility] [address] [place], [address] RDW SD 50.3 fl High 35.1-43.9 [facility] Comment on above: Performed By: #### L 500.2500, L100.0100, L501.4020 ####[facility] [address] [place], [address] WBC (Bld) [#/Vol] 10.4 10*3/uL Normal 4.4-11.0 [facility] Comment on above: Performed By: #### L 500.2500, L100.0100, L501.4020 ####[facility] [address] [place], [address] Chest 1 View (Portable)on Chest 1 View (Portable) Normal [facility] Emergency Department Summary on 11-12-2023 Emergency Department Summary Normal [facility] H AND P Exam - Hospitaliston 11-12-2023 H&P Exam - Hospitalist Normal [facility] HIP, UNI W/ Pelvis 2-3 Views on 11-12-2023 HIP, UNI W/ Pelvis 2-3 Views Normal [facility] L501.4020on 11-12-2023 TROPONIN-I HS < 3 Low 3.0-54.0 [facility] Comment on above: Order Comment: 'TROP ' Serial specimen #1, #2 or #3: 1 Result Comment: Plehardeep monson Note: New Test Units and Gender Specific Reference Ranges. For more information see Policy Stat Procedure [place] High Sensitivity Troponin (TNIH) and attachments. Performed By: #### L 500.2500, L100.0100, L501.4020 ####[facility] [address] [place], [address] Spine Cervical without Contr ason 11-12-2023 Spine Cervical without Contras Normal [facility] Urinalysis, Routine (Dipstic k)on 11-12-2023 BILIRUBIN URINE Negative Normal Negative [facility] Comment on above: Order Comment: COLLE CTOR TO SPECIFY Performed By: #### L 400.2010 ####[facility] [address] [place], [address] Clarity (U) Clear Normal Clear [facility] Comment on above: Order Comment: COLLE CTOR TO SPECIFY Performed By: #### L 400.2010 ####[facility] [address] [place], [address] Color (U) Yellow Normal Yellow [facility] Comment on above: Order Comment: MARC CTOR TO SPECIFY Performed By: #### L 400.2010 ####[facility] [address] [place], [address] GLUCOSE, UR Normal Normal Normal [facility] Comment on above: Order Comment: MARC CTOR TO SPECIFY Performed By: #### L 400.2010 ####[facility] [address] [place], [address] KETONE UR Negative Normal Negative [facility] Comment on above: Order Comment: MARC CTOR TO SPECIFY Performed By: #### L 400.2010 ####[facility] [address] [place], [address] LEUK ESTERASE Negative Normal Negative [facility] Comment on above: Order Comment: MARC CTOR TO SPECIFY Performed By: #### L 400.2010 ####[facility] [address] [place], [address] Nitrite Ql (U) Negative Normal Negative [facility] Comment on above: Order Comment: MARC CTOR TO SPECIFY Performed By: #### L 400.2010 ####[facility] [address] [place], [address] OCCULT BLOOD-UR 10 /ul Abnormal Negative [facility] Comment on above: Order Comment: MARC CTOR TO SPECIFY Performed By: #### L 400.2010 ####[facility] [address] [place], [address] pH UR 6.0 Normal 5.0 - 8.0 [facility] Comment on above: Order Comment: MARC CTOR TO SPECIFY Performed By: #### L 400.2010 ####[facility] [address] [place], [address] PROT DIPSTX 15 mg/dl Abnormal Negative [facility] Comment on above: Order Comment: MARC CTOR TO SPECIFY Performed By: #### L 400.2010 ####[facility] [address] [place], [place], [address] SP.GR. DIPSTX 1.010 Normal 1.002-1.030 [facility] Comment on above: Order Comment: MARC CTOR TO SPECIFY Performed By: #### L 400.2010 ####[facility] [address] [place], [place], [address] UROBILI Normal Normal Normal [facility] Comment on above: Order Comment: MARC CTOR TO SPECIFY Performed By: #### L 400.2010 ####[facility] [address] [place], [place], [id number] CNOVon 11-10-2023 CNOV Office Visit (AGGENS3) SONIA NOBLE ([id number]) 1945 F NFR Date Time Provider Department 11/10/23 3:00 PM LIZZ KING AGGENS3 During your visit today, we recorded the following information about you: Pulse Respiration Blood pressure Weight 84/minute 18/minute 145/86 56.7 kg Height 1.549 m Lizz King APRN.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 11/10/2023 3:25 PM Signed Incentive Spirometer: -Start with breathing exercise today, goal 30-40 breaths a day *Incentive spirometer is used to help with lung expansion post operatively. It can be of benefit preoperatively to for those who smoke or have lung disease. Use the spirometer as instructed during your hospital visit. Take 10 deep breaths, hold for one second and then slowly exhale. You can take cleansing breaths in between as needed to avoid feeling dizzy or lightheaded. Use the spirometer hourly if possible. You will continue with this postoperatively. Pedometer: -Pedometer to monitor your steps starting today -For the first 3 days monitor your average daily steps to get your baseline number -Then increase your steps by 200-300 every couple of days as able -Goal is to increase mobility as much as possible prior to surgery * Research has shown that increased strength, mobility and function preoperatively will help you to recover with less complication. Your effort preoperatively will yield better results postoperatively Stress Relief: -Deep breathing exercises -Sleep: 6-8 hours of sleep each night -Meditate -Laughing -Walking -Positive self-talk -Finding a support system -Exercise, walking, being active Nutrition: -Make sure you are getting enough protein a day, with a goal of at least 1 high-protein food with each of your three meals a day -High protein sources include: chicken breast, lean beef, salmon, tofu, peanut butter, eggs, finnish yogurt, cottage cheese, black beans, lentils -Make sure you are including high calcium foods, at least 3 servings a day: low-fat dairy, dark-leafy greens, sardines, or calcium-fortified cereals -Make sure you are getting vitamins and minerals by including at least four servings of fruits/vegetables a day - Drink 2 shakes daily for 5 days leading up to the day of surgery. *It has been shown through research that boosting the nutritional intake preoperatively with calories, vitamins and minerals, and hydration, promotes early recovery and improved healing postoperatively. You have been provided a case of supplement to take. Advanced Directives: Advanced directives are your preferences and personal requests in the event you are unable to make decisions for yourself following surgery. It is important for you to discuss your wishes with your family. It is requested that a single family member be designated as your power of attorney law clerk in the event you cannot speak for yourself. This person should know what you would prefer as your medical choices if you were not compromised. This person, family or friend, should know what you prefer for your medical care and decisions if you are unable to make those decisions for yourself. Notify your surgeon?s office to update your records with the designated Durable Power of Painter Set. -A great web site for information: www.[employer]lickLogin Sensory Aids: -If you have any sensory aids, such as hearing aids, or glasses, please bring these with you day of surgery -Encouraged to bring sleep hygiene items such as ear plugs and eye mask for more restful sleep during hospital stay - Information sheet on Delirium given to patient Sleep Apnea: If you have a CPAP machine, please bring that with you day of surgery. Smoking Cessation: -Quit smoking or vaping -Goal is to be abstinent from smoking prior to surgery, the sooner you quit, the less risk of post-op complications -Handout given on importance of smoking cessation -Resourceful web site: www.quitforsurgery.co [facility] smoke cessation resources: 1(218)-QUIT-NOW Lizz King APRN.CNP 11/10/2023 4:04 PM Signed Lizz King APRN.CNP [facility], [facility] [address] [id number] Patient: Sonia Noble Date of : 1945 Subjective Scheduled OR Date: TBD Surgeon: Dr. Mir PCP: No primary care provider on file. DIAGNOSES: Esophageal dysphagia, paraesophageal hernia PLANNED PROCEDURE: Paraesophageal hernia repair HPI Sonia Noble is a 78 year old female, who was recently evaluated for surgery and has elected to proceed with the above mentioned surgical intervention. Patient has a h/o anemia, GERD, osteoporosis, thyroid cancer with total thyroidectomy,, diverticulosis, colon cancer with surgery in 2016, smoker. She also has a h/o esophageal dysphagia and a paraesophageal hernia. She is on omeprazole. She had her upper GI s (more content not included)... Normal [facility] RF Gastrointestinal tract up per Views W air contrast PO and W barium contrast Chevy 11-10-2023 IMPRESSION: 6 x 5 cm hiatal hernia with mid esophageal gastroesophageal reflux. Shrimp Peeling Machine Tender: PSCB Transcribe Date/Time: Nov 10 2023 3:34P Dictated by : NANCY MALONE MD This examination was interpreted and the report reviewed and electronically signed by: NANCY MALONE MD on Nov 10 2023 3:38PM EST [facility] * * *Final Report* * * DATE OF EXAM: Nov 10 2023 1:58PM [id number] - XR UPPER GI DOUBLE CONTRAST/AIR / PROCEDURE REASON: multiple diagnoses * * * * Physician Interpretation * * * * EXAM TITLE: XR UPPER GI DOUBLE CONTRAST/AIR DATE: 11/10/2023 COMPARISON: None. CLINICAL INDICATION/HISTORY: Hiatal hernia, pain, heartburn, colon carcinoma TECHNIQUE: A double contrast upper GI study was performed by a human resources executive assistant. 7 images were submitted for interpretation. 1.1 minutes of fluoroscopy time utilized. FINDINGS: 6 x 5 cm hiatal hernia. Gastroesophageal reflux extended into the mid esophagus. There is no esophageal mass or stricture. No ulcer. There is incomplete gastric distention. There is no obvious intraluminal mass or ulcer. There is normal gastric evacuation of contrast into a normal-appearing proximal small bowel. Severe decreased bone density. Status post kyphoplasty or vertebroplasty at a lower thoracic compression fracture. [facility] * * *Final Report* * * DATE OF EXAM: Nov 10 2023 1:58PM [id number] - XR UPPER GI DOUBLE CONTRAST/AIR / PROCEDURE REASON: multiple diagnoses * * * * Physician Interpretation * * * * EXAM TITLE: XR UPPER GI DOUBLE CONTRAST/AIR DATE: 11/10/2023 COMPARISON: None. CLINICAL INDICATION/HISTORY: Hiatal hernia, pain, heartburn, colon carcinoma TECHNIQUE: A double contrast upper GI study was performed by a human resources executive assistant. 7 images were submitted for interpretation. 1.1 minutes of fluoroscopy time utilized. FINDINGS: 6 x 5 cm hiatal hernia. Gastroesophageal reflux extended into the mid esophagus. There is no esophageal mass or stricture. No ulcer. There is incomplete gastric distention. There is no obvious intraluminal mass or ulcer. There is normal gastric evacuation of contrast into a normal-appearing proximal small bowel. Severe decreased bone density. Status post kyphoplasty or vertebroplasty at a lower thoracic compression fracture. IMPRESSION IMPRESSION: 6 x 5 cm hiatal hernia with mid esophageal gastroesophageal reflux. Shrimp Peeling Machine Tender: PSCB Transcribe Date/Time: Nov 10 2023 3:34P Dictated by : NANCY MALONE MD This examination was interpreted and the report reviewed and electronically signed by: NANCY MALONE MD on Nov 10 2023 3:38PM EST [facility] Radiology Study observation (narrative) Jena Duran RF Gastrointestinal tract up per Views W air contrast PO and W barium contrast POOrdered By: Ccf Provider on 11-10-2023 [facility] XR UPPER GI DOUBLE CONTRAST/ AIRon 11-10-2023 XR UPPER GI DOUBLE CONTRAST/AIR * * *Final Report* * * DATE OF EXAM: Nov 10 2023 1:58PM AWX [id number] - XR UPPER GI DOUBLE CONTRAST/AIR / PROCEDURE REASON: multiple diagnoses * * * * Physician Interpretation * * * * EXAM TITLE: XR UPPER GI DOUBLE CONTRAST/AIR DATE: 11/10/2023 COMPARISON: None. CLINICAL INDICATION/HISTORY: Hiatal hernia, pain, heartburn, colon carcinoma TECHNIQUE: A double contrast upper GI study was performed by a human resources executive assistant. 7 images were submitted for interpretation. 1.1 minutes of fluoroscopy time utilized. FINDINGS: 6 x 5 cm hiatal hernia. Gastroesophageal reflux extended into the mid esophagus. There is no esophageal mass or stricture. No ulcer. There is incomplete gastric distention. There is no obvious intraluminal mass or ulcer. There is normal gastric evacuation of contrast into a normal-appearing proximal small bowel. Severe decreased bone density. Status post kyphoplasty or vertebroplasty at a lower thoracic compression fracture. IMPRESSION: 6 x 5 cm hiatal hernia with mid esophageal gastroesophageal reflux. Shrimp Peeling Machine Tender: PSCB Transcribe Date/Time: Nov 10 2023 3:34P Dictated by : NANCY MALONE MD This examination was interpreted and the report reviewed and electronically signed by: NANCY MALONE MD on Nov 10 2023 3:38PM EST [id number] N [facility] SONIA NOBLE ([id number]) 1945 F NFR Date Time Provider Department 11/06/23 CHASITY MIR4 During your visit today, we recorded the following information about you: Allergies As of Date: 11/06/2023 Noted Allergy Reaction DARVOCET A500 (PROPOXYPHENE N-ARABELLA*03/13/2005 8 - GI Upset 11 - Vomiting DARVON (PROPOXYPHENE HCL) 03/13/2005 8 - GI Upset SULFA (SULFONAMIDE ANTIBIOTICS) 03/13/2005 4 - Hives 8 - GI Upset 11 - Vomiting Date Reviewed: 10/28/2023 Reviewed by: Chasity Mir MD - Fully Assessed Primary Visit Diagnosis:Esophageal dysphagia [R13.19] Order(s):SURGICAL REQUEST - ELECTIVE (11/2019) [[id number]] Order #: [id number]: 1 Prescriptions as of 11/06/2023 - pravastatin (PRAVACHOL) 10 mg tablet Take 10 mg by mouth once daily. - sertraline (ZOLOFT) 100 mg tablet Take 100 mg by mouth once daily. - meloxicam (MOBIC) 15 mg tablet Take 15 mg by mouth once daily. - CALCIUM CARBONATE/VITAMIN D3 (CALCIUM + D ORAL) Take by mouth. - LORazepam (ATIVAN) 1 mg tablet Take 1 tablet by mouth daily at bedtime. - VITAMIN B COMPLEX (B-COMPLEX ORAL) Take by mouth. - levothyroxine (LEVOXYL) 125 mcg ORAL tablet Take 125 mcg by mouth once daily. - multivitamin ORAL tablet Take 2 tablets by mouth once daily. - omeprazole magnesium(PRILOSEC OTC 20 MG TAB) Take two tablets daily. - MIRTAZAPINE 15 MG TAB Take one(1) tablet daily at bedtime. - PAXIL 20 MG TAB Take one(1) tablet daily. 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 CBC W Auto Differential pane l (Bld)on 11-02-2023 Basophils (Bld) [#/Vol] 0.06 10*3/uL Normal <0.11 [facility] Comment on above: Order Comment: Speci men Type: BLOOD SPECIMEN Ordering Facility: [facility] Address: [address] [place] [address] Performed By: #### 5 7021-8 #### [facility] CLIA [id number] [address] [place] [address] [place] Basophils/100 WBC (Bld) 0.9 % Normal [facility] Comment on above: Order Comment: Speci men Type: BLOOD SPECIMEN Ordering Facility: [facility] Address: [address] [place] [address] Performed By: #### 5 7021-8 #### [facility] CLIA [id number] [address] [place] [address] [place] Differential cell count method Nom (Bld) Auto Normal [facility] Comment on above: Order Comment: Speci men Type: BLOOD SPECIMEN Ordering Facility: [facility] Address: [address] [place] [address] Performed By: #### 5 7021-8 #### [facility] CLIA [id number] [address] [place] [address] [place] Eosinophils (Bld) [#/Vol] 0.31 10*3/uL Normal <0.46 [facility] Comment on above: Order Comment: Speci men Type: BLOOD SPECIMEN Ordering Facility: [facility] Address: [address] [place] [address] Performed By: #### 5 7021-8 #### [facility] CLIA [id number] [address] [place] [address] [place] Eosinophils/100 WBC (Bld) 4.5 % Normal [facility] Comment on above: Order Comment: Speci men Type: BLOOD SPECIMEN Ordering Facility: [facility] Address: [address] [place] [address] Performed By: #### 5 7021-8 #### [facility] CLIA [id number] [address] [place] [address] [place] Erythrocyte distribution width (RBC) [Ratio] 14.7 % Normal 11.5-15.0 [facility] Comment on above: Order Comment: Speci men Type: BLOOD SPECIMEN Ordering Facility: [facility] Address: [address] [place] [address] Performed By: #### 5 7021-8 #### [facility] CLIA [id number] [address] [place] [address] [place] Hematocrit (Bld) [Volume fraction] 41.4 % Normal 36.0-46.0 [facility] Comment on above: Order Comment: Speci men Type: BLOOD SPECIMEN Ordering Facility: [facility] Address: [address] [place] [address] Performed By: #### 5 7021-8 #### [facility] CLIA [id number] [address] [place] [address] [place] Hemoglobin (Bld) [Mass/Vol] 13.0 g/dL Normal 11.5-15.5 [facility] Comment on above: Order Comment: Speci men Type: BLOOD SPECIMEN Ordering Facility: [facility] Address: [address] [place] [address] Performed By: #### 5 7021-8 #### [facility] CLIA [id number] [address] [place] [address] [place] Immature granulocytes (Bld) [#/Vol] 10*3/uL Normal <0.10 [facility] Comment on above: Order Comment: Speci men Type: BLOOD SPECIMEN Ordering Facility: [facility] Address: [address] [place] [address] Performed By: #### 5 7021-8 #### [facility] CLIA [id number] [address] [place] [address] [place] Immature granulocytes/100 WBC (Bld) 0.3 % Normal [facility] Comment on above: Order Comment: Speci men Type: BLOOD SPECIMEN Ordering Facility: [facility] Address: [address] [place] [address] Performed By: #### 5 7021-8 #### [facility] CLIA [id number] [address] [place] [address] [place] Lymphocytes (Bld) [#/Vol] 1.71 10*3/uL Normal 1.00-4.00 [facility] Comment on above: Order Comment: Speci men Type: BLOOD SPECIMEN Ordering Facility: [facility] Address: [address] [place] [address] Performed By: #### 5 7021-8 #### [facility] CLIA [id number] [address] [place] [address] [place] Lymphocytes/100 WBC (Bld) 24.9 % Normal [facility] Comment on above: Order Comment: Speci men Type: BLOOD SPECIMEN Ordering Facility: [facility] Address: [address] [place] [address] Performed By: #### 5 7021-8 #### [facility] CLIA [id number] [address] [place] [address] [place] MCH (RBC) [Entitic mass] 29.5 pg Normal 26.0-34.0 [facility] Comment on above: Order Comment: Speci men Type: BLOOD SPECIMEN Ordering Facility: [facility] Address: [address] [place] [address] Performed By: #### 5 7021-8 #### [facility] CLIA [id number] [address] [place] [address] [place] MCHC (RBC) [Mass/Vol] 31.4 g/dL Normal 30.5-36.0 [facility] Comment on above: Order Comment: Speci men Type: BLOOD SPECIMEN Ordering Facility: [facility] Address: [address] [place] [address] Performed By: #### 5 7021-8 #### [facility] CLIA [id number] [address] [place] [address] [place] MCV (RBC) [Entitic vol] 94.1 fL Normal 80.0-100.0 [facility] Comment on above: Order Comment: Speci men Type: BLOOD SPECIMEN Ordering Facility: [facility] Address: [address] [place] [address] Performed By: #### 5 7021-8 #### [facility] CLIA [id number] [address] [place] [address] [place] Monocytes (Bld) [#/Vol] 0.56 10*3/uL Normal <0.87 [facility] Comment on above: Order Comment: Speci men Type: BLOOD SPECIMEN Ordering Facility: [facility] Address: [address] [place] [address] Performed By: #### 5 7021-8 #### [facility] CLIA [id number] [address] [place] [address] [place] Monocytes/100 WBC (Bld) 8.1 % Normal [facility] Comment on above: Order Comment: Speci men Type: BLOOD SPECIMEN Ordering Facility: [facility] Address: [address] [place] [address] Performed By: #### 5 7021-8 #### [facility] CLIA [id number] [address] [place] [address] [place] Neutrophils (Bld) [#/Vol] 4.22 10*3/uL Normal 1.45-7.50 [facility] Comment on above: Order Comment: Speci men Type: BLOOD SPECIMEN Ordering Facility: [facility] Address: [address] [place] [address] Performed By: #### 5 7021-8 #### [facility] CLIA [id number] [address] [place] [address] [place] Neutrophils/100 WBC (Bld) 61.3 % Normal [facility] Comment on above: Order Comment: Speci men Type: BLOOD SPECIMEN Ordering Facility: [facility] Address: [address] [place] [address] Performed By: #### 5 7021-8 #### [facility] CLIA [id number] [address] [place] [address] [place] Nucleated RBC (Bld) [#/Vol] 10*3/uL Normal <0.01 [facility] Comment on above: Order Comment: Speci men Type: BLOOD SPECIMEN Ordering Facility: [facility] Address: [address] [place] [address] Performed By: #### 5 7021-8 #### [facility] CLIA [id number] [address] [place] [address] [place] Nucleated RBC/100 WBC (Bld) [Ratio] 0.0 /[address] [facility] Comment on above: Order Comment: Speci men Type: BLOOD SPECIMEN Ordering Facility: [facility] Address: [address] [place] [address] Performed By: #### 5 7021-8 #### [facility] CLIA [id number] [address] [place] [address] [place] Platelet mean volume (Bld) [Entitic vol] 11.7 fL Normal 9.0-12.7 [facility] Comment on above: Order Comment: Speci men Type: BLOOD SPECIMEN Ordering Facility: [facility] Address: [address] [place] [address] Performed By: #### 5 7021-8 #### [facility] CLIA [id number] [address] [place] [address] [place] Platelets (Bld) [#/Vol] 218 10*3/uL Normal 150-400 [facility] Comment on above: Order Comment: Speci men Type: BLOOD SPECIMEN Ordering Facility: [facility] Address: [address] [place] [address] Performed By: #### 5 7021-8 #### [facility] CLIA [id number] [address] [place] [address] [place] RBC (Bld) [#/Vol] 4.40 10*6/uL Normal 3.90-5.20 [facility] Comment on above: Order Comment: Speci men Type: BLOOD SPECIMEN Ordering Facility: [facility] Address: [address] [place] [address] Performed By: #### 5 7021-8 #### [facility] CLIA [id number] [address] [place] [address] [place] WBC (Bld) [#/Vol] 6.88 10*3/uL Normal 3.70-11.00 [facility] Comment on above: Order Comment: Speci men Type: BLOOD SPECIMEN Ordering Facility: [facility] Address: [address] [place] [address] Performed By: #### 5 7021-8 #### [facility] CLIA [id number] [address] [place] [address] [place] CNNURSEon 11-02-2023 [facility] Nurse Visit (MARGARITOPWS) SNOIA NOBLE ([id number]) 1945 F NFR Date Time Provider Department 11/02/23 10:45 AM [place] NURSE MARGARITOPWS During your visit today, we recorded the following information about you: Claudia Do LPN 11/02/2023 10:35 AM Signed Patient presents for EKG per Dr Mir. Denies any problems at this time. Tolerated procedure well. Claudia Do LPN Referring Provider: CHASITY MIR [[id number]] Allergies As of Date: 11/02/2023 Noted Allergy Reaction DARVOCET A500 (PROPOXYPHENE N-ARABELLA*03/13/2005 8 - GI Upset 11 - Vomiting DARVON (PROPOXYPHENE HCL) 03/13/2005 8 - GI Upset SULFA (SULFONAMIDE ANTIBIOTICS) 03/13/2005 4 - Hives 8 - GI Upset 11 - Vomiting Date Reviewed: 10/28/2023 Reviewed by: Chasity Mir MD - Fully Assessed Reason for Visit: EKG [793] Visit Diagnosis:Paraesophag eal hernia [K44.9] Order(s):ECG COMPLETE [ECG01] Order #: [id number] Prescriptions as of 11/02/2023 - pravastatin (PRAVACHOL) 10 mg tablet Take 10 mg by mouth once daily. - sertraline (ZOLOFT) 100 mg tablet Take 100 mg by mouth once daily. - meloxicam (MOBIC) 15 mg tablet Take 15 mg by mouth once daily. - CALCIUM CARBONATE/VITAMIN D3 (CALCIUM + D ORAL) Take by mouth. - LORazepam (ATIVAN) 1 mg tablet Take 1 tablet by mouth daily at bedtime. - VITAMIN B COMPLEX (B-COMPLEX ORAL) Take by mouth. - levothyroxine (LEVOXYL) 125 mcg ORAL tablet Take 125 mcg by mouth once daily. - multivitamin ORAL tablet Take 2 tablets by mouth once daily. - omeprazole magnesium(PRILOSEC OTC 20 MG TAB) Take two tablets daily. - MIRTAZAPINE 15 MG TAB Take one(1) tablet daily at bedtime. - PAXIL 20 MG TAB Take one(1) tablet daily. 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] 03/14/2005 HYPOTHYROIDISM NOS [E03.9] 07/14/2006 Iron deficiency anemia, unspecified [D50.9] 09/16/2010 Family history of malignant neoplasm of gastroi*09/16/2010 Esophageal reflux [K21.9] 09/16/2010 Loss of weight [R63.4] 09/16/2010 Cancer of ascending colon [C18.2] 12/03/2010 Personal history of colon cancer [Z85.038] 12/12/2011 Reflux gastritis [K29.60] 12/28/2015 Encounter Status:Closed by CLAUDIA DO on 11/02/23 Normal [facility] metabolic 2000 panelon 11-02-2023 Albumin [Mass/Vol] 3.9 g/dL Normal 3.9-4.9 [facility] Comment on above: Order Comment: Speci men Type: BLOOD SPECIMEN Ordering Facility: [facility] Address: [address] [place] [address] Performed By: #### 2 4323-8 #### [facility] CLIA [id number] [address] [place] [address] [place] ALP [Catalytic activity/Vol] 151 U/L High 34-123 [facility] Comment on above: Order Comment: Speci men Type: BLOOD SPECIMEN Ordering Facility: [facility] Address: [address] [place] [address] Performed By: #### 2 4323-8 #### [facility] CLIA [id number] [address] [place] [address] [place] ALT [Catalytic activity/Vol] 19 U/L Normal 7-38 [facility] Comment on above: Order Comment: Speci men Type: BLOOD SPECIMEN Ordering Facility: [facility] Address: [address] [place] [address] Performed By: #### 2 4323-8 #### [facility] CLIA [id number] [address] [place] [address] [place] Anion gap [Moles/Vol] 10 mmol/L Normal 8-15 [facility] Comment on above: Order Comment: Speci men Type: BLOOD SPECIMEN Ordering Facility: [facility] Address: [address] [place] [address] Performed By: #### 2 4323-8 #### [facility] CLIA [id number] [address] [place] [address] [place] AST [Catalytic activity/Vol] 37 U/L High 13-35 [facility] Comment on above: Order Comment: Speci men Type: BLOOD SPECIMEN Ordering Facility: [facility] Address: [address] [place] [address] Performed By: #### 2 4323-8 #### [facility] CLIA [id number] [address] [place] [address] [place] Bilirubin [Mass/Vol] 0.3 mg/dL Normal 0.2-1.3 [facility] Comment on above: Order Comment: Speci men Type: BLOOD SPECIMEN Ordering Facility: [facility] Address: [address] [place] [address] Performed By: #### 2 4323-8 #### [facility] CLIA [id number] [address] [place] [address] [place] Calcium [Mass/Vol] 9.2 mg/dL Normal 8.5-10.2 [facility] Comment on above: Order Comment: Speci men Type: BLOOD SPECIMEN Ordering Facility: [facility] Address: [address] [place] [address] Performed By: #### 2 4323-8 #### [facility] CLIA [id number] [address] [place] [address] [place] Chloride [Moles/Vol] 101 mmol/L Normal 98-107 [facility] Comment on above: Order Comment: Speci men Type: BLOOD SPECIMEN Ordering Facility: [facility] Address: [address] [place] [address] Performed By: #### 2 4323-8 #### [facility] CLIA [id number] [address] [place] [address] [place] CO2 [Moles/Vol] 22 mmol/L Normal 22-30 [facility] Comment on above: Order Comment: Speci men Type: BLOOD SPECIMEN Ordering Facility: [facility] Address: [address] [place] [address] Performed By: #### 2 4323-8 #### [facility] CLIA [id number] [address] [place] [address] [place] Creatinine [Mass/Vol] 0.78 mg/dL Normal 0.58-0.96 [facility] Comment on above: Order Comment: Speci men Type: BLOOD SPECIMEN Ordering Facility: [facility] Address: [address] [place] [address] Performed By: #### 2 4323-8 #### [facility] CLIA [id number] [address] [place] [address] [place] Creatinine and Glomerular filtration rate.predicted panel (S/P/Bld) 78 mL/min/1.73m??? Normal >=60 [facility] Comment on above: Order Comment: Moris men Type: BLOOD SPECIMEN Ordering Facility: [facility] Address: [address] [place] [address] Result Comment: [place] mated Glomerular Filtration Rate (eGFR) is calculated using the 2020 CKD-EPI creatinine equation. This equation utilizes serum creatinine, sex, and age as parameters. The creatinine assay has traceable calibration to isotope dilution-mass spectrometry. Refer to KDIGO guidelines for clinical interpretation. In patients with unstable renal function, e.g. those with acute kidney injury, the eGFR may not accurately reflect actual GFR. Performed By: #### 2 4323-8 #### [facility] CLIA [id number] [address] [place] [address] [place] Glucose [Mass/Vol] 91 mg/dL Normal 74-99 [facility] Comment on above: Order Comment: Kirti men Type: BLOOD SPECIMEN Ordering Facility: [facility] Address: [address] [place] [address] Result Comment: The [place] [employer] (ADA) provides guidance for cutoff values for fasting glucose and random glucose. The ADA defines fasting as no caloric intake for at least 8 hours. Fasting plasma glucose results between 100 to 125 mg/dL indicate increased risk for diabetes (prediabetes). Fasting plasma glucose results greater than or equal to 126 mg/dL meet the criteria for diagnosis of diabetes. In the absence of unequivocal hyperglycemia, results should be confirmed by repeat testing. In a patient with classic symptoms of hyperglycemia or hyperglycemic crisis, random plasma glucose results greater than or equal to 200 mg/dL meet the criteria for diagnosis of diabetes. Reference: Standards of Medical Care in Diabetes 2016, [place] [employer]. Diabetes Care. 2016.39(Suppl 1). Performed By: #### 2 4323-8 #### [facility] CLIA [id number] [address] [place] [address] [place] Potassium [Moles/Vol] 4.7 mmol/L Normal 3.7-5.1 [facility] Comment on above: Order Comment: Kirti jose Type: BLOOD SPECIMEN Ordering Facility: [facility] Address: [address] [place] [address] Performed By: #### 2 4323-8 #### [facility] CLIA [id number] [address] [place] [address] [place] Protein [Mass/Vol] 6.9 g/dL Normal 6.3-8.0 [facility] Comment on above: Order Comment: Kirti jose Type: BLOOD SPECIMEN Ordering Facility: [facility] Address: [address] [place] [address] Performed By: #### 2 4323-8 #### [facility] CLIA [id number] [address] [place] [address] [place] Sodium [Moles/Vol] 133 mmol/L Low 136-144 [facility] Comment on above: Order Comment: Kirti men Type: BLOOD SPECIMEN Ordering Facility: [facility] Address: [address] [place] [address] Performed By: #### 2 4323-8 #### [facility] CLIA [id number] [address] [place] [address] [place] Urea nitrogen [Mass/Vol] 11 mg/dL Normal 7-21 [facility] Comment on above: Order Comment: Speci men Type: BLOOD SPECIMEN Ordering Facility: [facility] Address: [address] [place] [address] Performed By: #### 2 4323-8 #### [facility] CLIA [id number] [address] [facility] [place] [address] [place] ECG COMPLETEon 11-02-2023 ECG COMPLETE Ventricular Rate : 8 0 BPM Atrial Rate : 80 BPM P-R Interval : 194 ms QRS Duration : 78 ms Q-T Interval : 392 ms QTC Calculation(Bazett) : 452 ms Calculated P Bethel : 20 degrees Calculated R Bethel : -29 degrees Calculated T Bethel : 17 degrees NORMAL SINUS RHYTHM Confirmed by TANYA LICEA DO ([id number]) on 11/03/2023 8:10:20 AM NAME : SONIA NOBLE PID : [id number] : 1945 Gender : Female Race : ORD : [id number] Procedure Date : Nov 02 2023 10:46:47 Edit Date : Nov 03 2023 08:10:23 Diagnosis: NORMAL SINUS RHYTHM Confirmed by TANYA LICEA DO ([id number]) on 11/03/2023 8:10:20 AM Test Reason : Location : 185 : [facility] Overread By : TANYA LICEA DO Edited By : TANYA LICEA DO Referred By : CHASITY MIR Acquired by : CLAUDIA DO, [facility] NICOTINE AND METAB, URon URIN ANABASINE QUANT <5 Normal [facility] Comment on above: Order Comment: Speci men Type: URINE SPECIMEN Ordering Facility: [facility] Address: [address] [place] [address] Performed By: #### U NICOT #### [facility] CLIA [id number] [address] [place] [address] URIN COTININE QUANT 308 ng/mL Normal [facility] Comment on above: Order Comment: Speci men Type: URINE SPECIMEN Ordering Facility: [facility] Address: [address] [place] [address] Performed By: #### U NICOT #### [facility] CLIA [id number] [address] [place] [address] URIN NICOTINE QUANT 287 ng/mL Normal [facility] Comment on above: Order Comment: Speci men Type: URINE SPECIMEN Ordering Facility: [facility] Address: [address] [place], [place] [id number] Result Comment: INTE RPRETIVE INFORMATION: Nicotine and Metabolites, Urine, Quantitative Methodology: Quantitative Liquid Chromatography-Tandem Mass Spectrometry Positive cutoff: Nicotine 15 ng/mL Cotinine 15 ng/mL 9-AT-Upzssowx 50 ng/mL Anabasine 5 ng/mL For medical purposes only; not valid for forensic use. This test is designed to evaluate recent use of nicotine-containing products. Passive and active exposure cannot be discriminated definitively, although a cutoff of 100 ng/mL cotinine is frequently used for surgery qualification purposes. For smoking cessation programs or compliance testing, the absence of expected drug(s) and/or drug metabolite(s) may indicate non-compliance, inappropriate timing of specimen collection relative to drug administration, poor drug absorption, diluted/adulterated urine, or limitations of testing. The concentration value must be greater than or equal to the cutoff to be reported as positive. Anabasine is included as a biomarker of tobacco use, versus nicotine replacement. Interpretive questions should be directed to the laboratory. This test was developed and its performance characteristics determined by [facility]. It has not been cleared or approved by the [place] Food and Drug Administration. This test was performed in a CLIA certified laboratory and is intended for clinical purposes. Performed By: [facility] [address] [place] [address] Mica Builder: Wilfredo Henry MD, PhD CLIA Number: [id number] Performed By: #### U NICOT #### [facility] CLIA [id number] [address] [place] [address] URINE 3 [place] COTININE 1168 ng/mL Normal [facility] Comment on above: Order Comment: Speci men Type: URINE SPECIMEN Ordering Facility: [facility] Address: [address] [place] [id number] Performed By: #### U NICOT #### [facility] CLIA [id number] [address] [place] [address] XR CHEST 2V FRONTAL/LATon XR CHEST 2V FRONTAL/LAT * * *Final Repor t* * * DATE OF EXAM: Nov 02 2023 10:54AM WOX 5291 - XR CHEST 2V FRONTAL/LAT / PROCEDURE REASON: Paraesophageal hernia * * * * Physician Interpretation * * * * EXAMINATION: CHEST RADIOGRAPH (2 VIEW FRONTAL and LATERAL) CLINICAL HISTORY: Paraesophageal hernia MQ: XC2_6 EXAM DATE/TIME: 11/02/2023 10:54 AM COMPARISON: Remote CT scans of 05/07/2011 RESULT: Lines, tubes, and devices: None. Lungs and pleura: No consolidation. No lung mass. No pleural effusion. No pneumothorax. Cardiomediastinal silhouette: Normal cardiomediastinal silhouette. Bones and soft tissues: Severe mid thoracic compression fracture with vertebroplasty.. Healed left rib fractures. Multiple additional mild mid thoracic wedge deformities. Diffuse osteopenia IMPRESSION: No acute radiographic abnormality. Healed rib fractures. Vertebral wedge deformities Shrimp Peeling Machine Tender: SHAKIR Transcribe Date/Time: Nov 02 2023 2:06P Dictated by : TYLER URIAS MD This examination was interpreted and the report reviewed and electronically signed by: TYLER URIAS MD on Nov 02 2023 2:10PM EST [id number] Normal [facility] XR Chest PA and Lateralon IMPRESSION: No acute radiographic abnormality. Healed rib fractures. Vertebral wedge deformities Shrimp Peeling Machine Tender: [facility] Transcribe Date/Time: Nov 02 2023 2:06P Dictated by : TYLER URIAS MD This examination was interpreted and the report reviewed and electronically signed by: TYLER URIAS MD on Nov 02 2023 2:10PM EST DIVISION OF RADIOLOGY * * *Final Report* * * DATE OF EXAM: Nov 02 2023 10:54AM WOX 5291 - XR CHEST 2V FRONTAL/LAT / PROCEDURE REASON: Paraesophageal hernia * * * * Physician Interpretation * * * * EXAMINATION: CHEST RADIOGRAPH (2 VIEW FRONTAL & LATERAL) CLINICAL HISTORY: Paraesophageal hernia MQ: XC2_6 EXAM DATE/TIME: 11/02/2023 10:54 AM COMPARISON: Remote CT scans of 05/07/2011 RESULT: Lines, tubes, and devices: None. Lungs and pleura: No consolidation. No lung mass. No pleural effusion. No pneumothorax. Cardiomediastinal silhouette: Normal cardiomediastinal silhouette. Bones and soft tissues: Severe mid thoracic compression fracture with vertebroplasty.. Healed left rib fractures. Multiple additional mild mid thoracic wedge deformities. Diffuse osteopenia DIVISION OF RADIOLOGY Provider, Ruben Beebe - 11/02/2023 * * *Final Report* * * DATE OF EXAM: Nov 02 2023 10:54AM WOX 5291 - XR CHEST 2V FRONTAL/LAT / PROCEDURE REASON: Paraesophageal hernia * * * * Physician Interpretation * * * * EXAMINATION: CHEST RADIOGRAPH (2 VIEW FRONTAL & LATERAL) CLINICAL HISTORY: Paraesophageal hernia MQ: XC2_6 EXAM DATE/TIME: 11/02/2023 10:54 AM COMPARISON: Remote CT scans of 05/07/2011 RESULT: Lines, tubes, and devices: None. Lungs and pleura: No consolidation. No lung mass. No pleural effusion. No pneumothorax. Cardiomediastinal silhouette: Normal cardiomediastinal silhouette. Bones and soft tissues: Severe mid thoracic compression fracture with vertebroplasty.. Healed left rib fractures. Multiple additional mild mid thoracic wedge deformities. Diffuse osteopenia IMPRESSION IMPRESSION: No acute radiographic abnormality. Healed rib fractures. Vertebral wedge deformities Shrimp Peeling Machine Tender: PSCB Transcribe Date/Time: Nov 02 2023 2:06P Dictated by : TYLER URIAS MD This examination was interpreted and the report reviewed and electronically signed by: TYLER URIAS MD on Nov 02 2023 2:10PM [facility] Study observation (narrative) Jena rodas [facility] XR Chest PA and LateralOrder ed By: [facility] Provider on 11-02-2023 [facility] Ronal 10-29-2023 CNPN Telephone (AGGENS4) SONIA NOBLE ([id number]) 1945 F NFR Date Time Provider Department 10/29/23 CHASITY MIRENS4 During your visit today, we recorded the following information about you: Brady Junior RN 10/29/2023 10:49 AM Signed Patient given written information about esophageal manometry and the prep instructions in the office on 10/28/23. I called her today and verbally discussed and reviewed the information with the patient. All of patient's questions were answered. Patient has my contact info if she has any questions. Brady Junior RN Allergies As of Date: 10/29/2023 Noted Allergy Reaction DARVOCET A500 (PROPOXYPHENE N-ARABELLA*03/13/2005 8 - GI Upset 11 - Vomiting DARVON (PROPOXYPHENE HCL) 03/13/2005 8 - GI Upset SULFA (SULFONAMIDE ANTIBIOTICS) 03/13/2005 4 - Hives 8 - GI Upset 11 - Vomiting Date Reviewed: 10/28/2023 Reviewed by: Chasity Mir MD - Fully Assessed Reason for Visit: Future Appointment [256] Cmt: Esophageal manometry Prescriptions as of 10/29/2023 - pravastatin (PRAVACHOL) 10 mg tablet Take 10 mg by mouth once daily. - sertraline (ZOLOFT) 100 mg tablet Take 100 mg by mouth once daily. - meloxicam (MOBIC) 15 mg tablet Take 15 mg by mouth once daily. - CALCIUM CARBONATE/VITAMIN D3 (CALCIUM + D ORAL) Take by mouth. - LORazepam (ATIVAN) 1 mg tablet Take 1 tablet by mouth daily at bedtime. - VITAMIN B COMPLEX (B-COMPLEX ORAL) Take by mouth. - levothyroxine (LEVOXYL) 125 mcg ORAL tablet Take 125 mcg by mouth once daily. - multivitamin ORAL tablet Take 2 tablets by mouth once daily. - omeprazole magnesium(PRILOSEC OTC 20 MG TAB) Take two tablets daily. - MIRTAZAPINE 15 MG TAB Take one(1) tablet daily at bedtime. - PAXIL 20 MG TAB Take one(1) tablet daily. 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 CNOVon 10-28-2023 CNOV Office Visit (AGGENS4) SONIA NOBLE ([id number]) 1945 F NFR Date Time Provider Department 10/28/23 8:30 AM CHASITY MIR AGGENS4 During your visit today, we recorded the following information about you: Pulse Blood pressure Weight Height 87/minute 106/61 56.5 kg 1.549 m Chasity Mir MD 10/28/2023 9:13 AM Signed SURGICAL SERVICES HISTORY AND PHYSICAL EXAMINATION SERVICE DATE: 10/28/2023 SERVICE TIME: 8:47 AM PRIMARY CARE PHYSICIAN: No primary care provider on file. SUBJECTIVE CHIEF COMPLAINT: hernia HISTORY OF PRESENT ILLNESS: Ms. Noble is a 78 year old female with a PMH of anemia, HLD, colon cancer (s/p partial colectomy 2010), GERD, depression, osteoporosis, hx of thyroid CA (s/p total thyroidectomy) who presents for surgical consultation. Surgical consultation was requested by the patient's referring physician, Dr. Gareth Steven. A copy of this consultation note will be provided to the requesting physician(s) by way of shared medical record or letter via [place] mail. The patient states that she has been having issues with heartburn for greater than one year. She has been taking Omeprazole 40 mg BID and still has breakthrough symptoms. Symptoms are most severe at night. She experiences food and acid regurgitation nearly daily. She endorses some difficulty swallowing and is noticing increased need to drink water when she eats. She has lost 10 pounds in the last one year. She also uses Mylanta - goes through a bottle every two weeks. She uses rare NSAIDs for pain and headaches - she cannot recall the last time she took these medications. She denies any personal history of DM, RI/CAD, CVA/TIA or any other medical conditions aside from listed above. She has a history of colon CA and underwent partial colectomy and undergoes colonoscopy every 5 years. As a result of the surgery she has occasional diarrhea Workup: - EGD (Dr. Steven 07/31/23): large hiatal hernia - CT abd/pelvis (04/2011): A triangular density previously seen along the left heart border has resolved since the prior study in December. There is focal thickening of the right abdominal wall which is stable, probably representing postsurgical change. CT scans of the chest, abdomen, and pelvis show no significant interval change otherwise. - CT chest (04/2011): A triangular density previously seen along the left heart border has resolved since the prior study in December. There is focal thickening of the right abdominal wall which is stable, probably representing postsurgical change. CT scans of the chest, abdomen, and pelvis show no significant interval change otherwise. Social: current 1 ppd smoker; rare etoh use; denies use of illicit drugs aside from CBD gummy at HS to help her sleep PSHx: TANDA, open CANDIS, lap CCx, total thyroidectomy, open colectomy (2010; Dr. Zuniga) PAST MEDICAL HISTORY: PAST MEDICAL HISTORY Diagnosis Date Anemia Colon cancer (HCC) 12/31/2015 Diverticulitis of colon (without mention of hemorrhage)(562.11) Esophageal reflux Family history of malignant neoplasm of gastrointestinal tract Fracture of pelvis (HCC) Heart burn High risk bisexual behavior Iron deficiency anemia, unspecified Mental disorder depression Osteoporosis Reticulosarcoma of lymph nodes of head, face, and neck (HCC) Snoring Thyroid ca (HCC) PAST SURGICAL HISTORY: PAST SURGICAL HISTORY Procedure Laterality Date ADENOIDECTOMY PRIMARY Adenoidectomy ANES IPER LOWER ABD W/LAPS RAD HYSTERECTOMY COLONOSCOPY FLX DX W/COLLJ SPEC WHEN PFRMD [id number] repeat 1 year COLONOSCOPY W/BIOPSY SINGLE/MULTIPLE 09/16/10 with direct submucosal injection COLSC FLX W/REMOVAL LESION BY HOT BX FORCEPS 12/31/2015 COLSC FLX W/RMVL OF TUMOR POLYP LESION SNARE TQ 01/03/13 EGD TRANSORAL BIOPSY SINGLE/MULTIPLE 09/16/10 EGD TRANSORAL BIOPSY SINGLE/MULTIPLE 12/31/2015 LAP HAO W EXPLORATION OF CD THYROIDECTOMY TOTAL/COMPLETE TONSILLECTOMY PRIMARY/SECONDARY Tonsillectomy alone FAMILY HISTORY: FAMILY HISTORY Problem Relation Age of Onset Colon Cancer Father Heart Mother Cancer Brother Exposed to agent orange Cancer Maternal Grandmother Ovarian ca/goiter Prostate Cancer Maternal Grandfather Headache Sister Migraines Thyroid Sister SOCIAL HISTORY: Social History Tobacco Use Smoking status: Every Day Packs/day: 0.50 Years: 19.00 Additional pack years: 0.00 Total pack years: 9.50 Types: Cigarettes Start date: 11/26/1995 Smokeless tobacco: Never Tobacco comments: Pt has cut back to 1/2 pack daily. Substance Use Topics Alcohol use: Yes Comment: occasional Drug use: No MEDICATIONS: Current Outpatient Medications Medication Sig pravastatin (PRAVACHOL) 10 mg tablet Take 10 mg by mouth once daily. sertraline (ZOLOFT) 100 mg tablet Take 100 mg by mouth once daily. meloxic (more content not included)... [facility] (AGGENS4) SONIA NOBLE ([id number]) 1945 F NFR Date Time Provider Department 10/28/23 CHASITY MIR AGGENS4 During your visit today, we recorded the following information about you: Lety Meraz LPN 10/28/2023 9:49 AM Signed Manometry scheduled for 11/06/2023 at 900am. Prep/instructions given to patient at checkout. Lety Meraz LPN Allergies As of Date: 10/28/2023 Noted Allergy Reaction DARVOCET A500 (PROPOXYPHENE N-ARABELLA*03/13/2005 8 - GI Upset 11 - Vomiting DARVON (PROPOXYPHENE HCL) 03/13/2005 8 - GI Upset SULFA (SULFONAMIDE ANTIBIOTICS) 03/13/2005 4 - Hives 8 - GI Upset 11 - Vomiting Date Reviewed: 10/28/2023 Reviewed by: Chasity Mir MD - Fully Assessed Reason for Visit: Appointment [186] Cmt: Manometry Prescriptions as of 10/28/2023 - pravastatin (PRAVACHOL) 10 mg tablet Take 10 mg by mouth once daily. - sertraline (ZOLOFT) 100 mg tablet Take 100 mg by mouth once daily. - meloxicam (MOBIC) 15 mg tablet Take 15 mg by mouth once daily. - CALCIUM CARBONATE/VITAMIN D3 (CALCIUM + D ORAL) Take by mouth. - LORazepam (ATIVAN) 1 mg tablet Take 1 tablet by mouth daily at bedtime. - VITAMIN B COMPLEX (B-COMPLEX ORAL) Take by mouth. - levothyroxine (LEVOXYL) 125 mcg ORAL tablet Take 125 mcg by mouth once daily. - multivitamin ORAL tablet Take 2 tablets by mouth once daily. - omeprazole magnesium(PRILOSEC OTC 20 MG TAB) Take two tablets daily. - MIRTAZAPINE 15 MG TAB Take one(1) tablet daily at bedtime. - PAXIL 20 MG TAB Take one(1) tablet daily. 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 Normal [facility] Comment on above: Performed By: #### M 100.2000, M100.4001, M100.3000 ####[facility] [address] [place], [address] Surgery Visit Reporton 08-10 Surgery Visit Report Normal [facility] Culture, Anaerobic Any Sourc kiley 08-09-2023 CUAN List Antibiotics Las t 48 Hours? augmentin augmentin No anaerobic bacteria isolated. Normal [facility] Comment on above: Performed By: #### M 100.3000, M100.2000, M100.4001 ####[facility] [address] [place], [address] Wound Cultureon 08-09-2023 [facility] Comment on above: Performed By: #### M 100.3000, M100.2000, M100.4001 ####[facility] [address] [place], [address] Wound Cultureon 08-08-2023 [facility] Comment on above: Performed By: #### M 100.2000, M100.4001, M100.3000 ####[facility] [address] [place], [address] Gram Stainon 08-07-2023 GS LEFT SWAIN Gram Stain 4+ Red Blood Cells No organisms seen No White Blood Cells No Epithelial cells Normal [facility] Comment on above: Performed By: #### M 100.2000, M100.4001, M100.3000 ####[facility] [address] [place], [address] Absolute lymphocyte countOrd ered By: Ervin Darling on 08-06-2023 Lymphocytes Auto (Unsp spec) [#/Vol] 1.45 10*3/uL 0.83-4.51 [facility] Automated lymphocyte count a s percentage of total leukocytesOrdered By: Ervin Darling on 08-06-2023 Lymphocytes/100 WBC Auto (Unsp spec) 15.4 % 19-41 [facility] Bacteria identified Cx Nom ( Wound)Ordered By: Ervin Darling on 08-06-2023 Wound Culture Pseudomonas aeruginosa [facility] Basophil percentageOrdered B y: Ervin Darling on 08-06-2023 Basophils/100 WBC (Bld) 0.6 % 0-1 [facility] Bilirubin [Mass/Vol] 0.40 mg/dL 0.20-1.00 [facility] Comment on above: For patients on eltr ombopag therapy, use of Dimension [place] TBIL is not recommended. Chloride [Moles/Vol] 103 mmol/L 98-107 [facility] Eosinophils/100 WBC (Bld) 0.7 % 0-5 [facility] Glucose [Mass/Vol] 86 mg/dL 74-106 [facility] Hemoglobin (Bld) [Mass/Vol] 12.7 g/dL 12.0-15.0 [facility] Monocytes/100 WBC (Bld) 5.2 % 0-10 [facility] Neutrophils (Bld) [#/Vol] 7.3 10*3/uL 2.0-7.7 [facility] Neutrophils/100 WBC (Bld) 77.7 % 47-70 [facility] Potassium [Moles/Vol] 4.1 mmol/L 3.5-5.1 [place] Protein [Mass/Vol] 7.2 g/dL 6.4-8.2 [facility] Sodium [Moles/Vol] 137 mmol/L 136-145 [facility] WBC (Bld) [#/Vol] 9.4 10*3/uL 4.4-11.0 [facility] CBC W/Diff, Automatedon 07-13 Absolute Lymph 1.45 X10 3/uL Normal 0.83-4.51 [facility] Comment on above: Performed By: #### L 506.0500, L100.0100, L501.6776, L500.4050 ####[facility] [address] [place], [place], [address] Absolute Neut 7.3 X10 3/uL Normal 2.0-7.7 [facility] Comment on above: Performed By: #### L 506.0500, L100.0100, L501.6710, L500.4050 ####[facility] [address] [place], [address] Basophils/100 WBC (Bld) 0.6 % Normal 0-1 [facility] Comment on above: Performed By: #### L 506.0500, L100.0100, L501.6710, L500.4050 ####[facility] [address] [place], [address] Eosinophils/100 WBC (Bld) 0.7 % Normal 0-5 [facility] Comment on above: Performed By: #### L 506.0500, L100.0100, L501.6710, L500.4050 ####[facility] [address] [place], [address] Erythrocyte distribution width (RBC) [Ratio] 14.1 % Normal 11.6-14.6 [facility] Comment on above: Performed By: #### L 506.0500, L100.0100, L501.6710, L500.4050 ####[facility] [address] [place], [address] Hematocrit (Bld) [Volume fraction] 39.0 % Normal 37-47 [facility] Comment on above: Performed By: #### L 506.0500, L100.0100, L501.6710, L500.4050 ####[facility] [address] [place], [address] Hemoglobin (Bld) [Mass/Vol] 12.7 g/dL Normal 12.0-15.0 [facility] Comment on above: Performed By: #### L 506.0500, L100.0100, L501.6710, L500.4050 ####[facility] [address] [place], [address] IG% 0.400 Normal 0.0-0.9 [facility] Comment on above: Result Comment: IG% - Immature Granulocytes (promyelocytes, myelocytes andmetamyelocytes) > 1% indicates that a LEFT SHIFT is Present. Performed By: #### L 506.0500, L100.0100, L501.6710, L500.4050 ####[facility] [address] [place], [address] Lymphocytes/100 WBC (Bld) 15.4 % Low 19-41 [facility] Comment on above: Performed By: #### L 506.0500, L100.0100, L501.6710, L500.4050 ####[facility] [address] [place], [address] MCH (RBC) [Entitic mass] 29.3 pg Normal 27.0-32.0 [facility] Comment on above: Performed By: #### L 506.0500, L100.0100, L501.6710, L500.4050 ####[facility] [address] [place], [address] MCHC (RBC) [Mass/Vol] 32.6 g/dL Normal 32-36 [place] Comment on above: Performed By: #### L 506.0500, L100.0100, L501.6710, L500.4050 ####[facility] [address] [place], [address] MCV (RBC) [Entitic vol] 89.9 fL Normal 81-99 [facility] Comment on above: Performed By: #### L 506.0500, L100.0100, L501.6710, L500.4050 ####[facility] [address] [place], [address] Monocytes/100 WBC (Bld) 5.2 % Normal 0-10 [facility] Comment on above: Performed By: #### L 506.0500, L100.0100, L501.6710, L500.4050 ####[facility] [address] [place], [address] Neutrophils/100 WBC (Bld) 77.7 % High 47-70 [facility] Comment on above: Performed By: #### L 506.0500, L100.0100, L501.6710, L500.4050 ####[facility] [address] [place], [address] Nucleated RBC (Bld) [#/Vol] 0 10*3/uL Normal 0-5 [facility] Comment on above: Performed By: #### L 506.0500, L100.0100, L501.6710, L500.4050 ####[facility] [address] [place], [address] Platelet mean volume (Bld) [Entitic vol] 10.9 fL Normal 6.2-12.0 [facility] Comment on above: Performed By: #### L 506.0500, L100.0100, L501.6710, L500.4050 ####[facility] [address] [place], [address] Platelets (Bld) [#/Vol] 237 10*3/uL Normal 150-450 [facility] Comment on above: Performed By: #### L 506.0500, L100.0100, L501.6710, L500.4050 ####[facility] [address] [place], [address] RBC (Bld) [#/Vol] 4.34 10*6/uL Normal 4.2-5.4 [facility] Comment on above: Performed By: #### L 506.0500, L100.0100, L501.6710, L500.4050 ####[facility] [address] [place], [address] RDW SD 46.5 fl High 35.1-43.9 [facility] Comment on above: Performed By: #### L 506.0500, L100.0100, L501.6710, L500.4050 ####[facility] [address] [place], [address] WBC (Bld) [#/Vol] 9.4 10*3/uL Normal 4.4-11.0 [facility] Comment on above: Performed By: #### L 506.0500, L100.0100, L501.6710, L500.4050 ####[facility] [address] [place], [address] CRPon 4 C-REACTIVE PROT 6.76 mg/L High 0.0-3.0 [facility] Comment on above: Result Comment: C-Re active Protein (CRP) provides useful information for thediagnosis, therapy and monitoring of inflammatory processesand associated diseases. For the evaluation of Relative Riskfor Cardiovascular Disease, a High Sensitivity CRP (HSCRP)should be ordered. Performed By: #### L 506.0500, L100.0100, L501.6710, L500.4050 ####[facility] [address] [place], [address] Comprehensive Metabolic Prof ilon 4 Albumin [Mass/Vol] 3.5 g/dL Normal 3.2-5.0 [facility] Comment on above: Performed By: #### L 506.0500, L100.0100, L501.6710, L500.4050 ####[facility] [address] [place], [address] Albumin/Globulin [Mass ratio] 0.9 {ratio} Normal 0.9-2.4 [facility] Comment on above: Performed By: #### L 506.0500, L100.0100, L501.6710, L500.4050 ####[facility] [address] [place], [address] ALK P 130 U/L High 45-117 [facility] Comment on above: Performed By: #### L 506.0500, L100.0100, L501.6710, L500.4050 ####[facility] [address] [place], [address] ALT [Catalytic activity/Vol] 20 U/L Normal 13-56 [facility] Comment on above: Performed By: #### L 506.0500, L100.0100, L501.6710, L500.4050 ####[facility] [address] [place], [address] AST [Catalytic activity/Vol] 24 U/L Normal 15-37 [facility] Comment on above: Performed By: #### L 506.0500, L100.0100, L501.6710, L500.4050 ####[facility] [address] [place], [address] Bilirubin [Mass/Vol] 0.40 mg/dL Normal 0.20-1.00 [facility] Comment on above: Result Comment: For patients on eltrombopag therapy, use of Dimension [place] TBIL is not recommended. Performed By: #### L 506.0500, L100.0100, L501.6710, L500.4050 ####[facility] [address] [place], [address] BUN/CRE 10.7 RATIO Normal 10-20 [facility] Comment on above: Performed By: #### L 506.0500, L100.0100, L501.6710, L500.4050 ####[facility] [address] [place], [address] CA,Total 9.4 mg/dL Normal 8.5-10.1 [facility] Comment on above: Performed By: #### L 506.0500, L100.0100, L501.6710, L500.4050 ####[facility] [address] [place], [address] Chloride [Moles/Vol] 103 mmol/L Normal 98-107 [facility] Comment on above: Performed By: #### L 506.0500, L100.0100, L501.6710, L500.4050 ####[facility] [address] [place], [address] CO2 [Moles/Vol] 27.0 mmol/L Normal 21.0-32.0 [facility] Comment on above: Performed By: #### L 506.0500, L100.0100, L501.6710, L500.4050 ####[facility] [address] [place], [address] Creatinine [Mass/Vol] 0.94 mg/dL Normal 0.55-1.02 [place] Comment on above: Result Comment: The validity of the calculated GFR GFRAA in patients over70 years has not been determined. Clinical correlation isessential. Performed By: #### L 506.0500, L100.0100, L501.6710, L500.4050 ####[facility] [address] [place], [address] EST GFR - AA 75 mL/min Normal >60 [facility] Comment on above: Result Comment: Afri can Georgian GFR Calc Performed By: #### L 506.0500, L100.0100, L501.6710, L500.4050 ####[facility] [address] [place], [address] GAP 7 Normal 5-15 [facility] Comment on above: Performed By: #### L 506.0500, L100.0100, L501.6710, L500.4050 ####[facility] [address] [place], [address] GFR/1.73 sq M.predicted among non-blacks MDRD (S/P/Bld) [Vol rate/Area] 62 mL/min/{1.73_m2} Normal >60 [facility] Comment on above: Result Comment: Non- GFR Calc Performed By: #### L 506.0500, L100.0100, L501.6710, L500.4050 ####[facility] [address] [place], [address] Globulin (S) [Mass/Vol] 3.7 g/dL Normal 2.2-4.2 [facility] Comment on above: Performed By: #### L 506.0500, L100.0100, L501.6710, L500.4050 ####[facility] [address] [place], [address] Glucose [Mass/Vol] 86 mg/dL Normal 74-106 [facility] Comment on above: Performed By: #### L 506.0500, L100.0100, L501.6710, L500.4050 ####[facility] [address] [place], [address] Potassium [Moles/Vol] 4.1 mmol/L Normal 3.5-5.1 [facility] Comment on above: Performed By: #### L 506.0500, L100.0100, L501.6710, L500.4050 ####[facility] [address] [place], [address] Sodium [Moles/Vol] 137 mmol/L Normal 136-145 [facility] Comment on above: Performed By: #### L 506.0500, L100.0100, L501.6710, L500.4050 ####[facility] [address] [place], [address] T PROT 7.2 g/dL Normal 6.4-8.2 [facility] Comment on above: Performed By: #### L 506.0500, L100.0100, L501.6710, L500.4050 ####[facility] [address] [place], [address] Urea nitrogen [Mass/Vol] 10 mg/dL Normal 7-18 [facility] Comment on above: Performed By: #### L 506.0500, L100.0100, L501.6710, L500.4050 ####[facility] [address] [place], [address] Determination of erythrocyte mean corpuscular volume (MCV)Ordered By: Ervin Darling on 08-06-2023 MCV (RBC) [Entitic vol] 89.9 fL 81-99 [facility] Erythrocyte distribution wid th ratioOrdered By: Ervin Darling on 08-06-2023 Erythrocyte distribution width (RBC) [Ratio] 14.1 % 11.6-14.6 [facility] Erythrocyte distribution wid th standard deviationOrdered By: Ervin Darling on 08-06-2023 Erythrocyte distribution width (RBC) [Entitic vol] 46.5 fL 35.1-43.9 [facility] Gram Stainon 08-06-2023 GS List Antibiotics [place] 48 Hours? augmentin augmentin Gram Stain 1+ Gram positive rods Rare White Blood Cells Rare Epithelial cells Normal [facility] Comment on above: Performed By: #### M 100.3000, M100.2000, M100.4001 ####[facility] [address] [place], [place], [id number] Gram stain for investigation of transfusion reactionOrdered By: Ervin Darling on 08-06-2023 Microscopic observation Gram stain Nom (Unsp spec) [facility] Hematocrit Auto (Bld) [Volum e fraction]Ordered By: Ervin Darling on 08-06-2023 Hematocrit (Bld) [Volume fraction] 39.0 % 37-47 [facility] Immature granulocytes/100 WB C Auto (Bld)Ordered By: Ervin Darling on 08-06-2023 Immature granulocytes/100 WBC (Bld) 0.400 % 0.0-0.9 [facility] Comment on above: IG% - Immature Granu locytes (promyelocytes, myelocytes and metamyelocytes) > 1% indicates that a LEFT SHIFT is Present. Laboratory - Chemistry and C hemistry - challengeOrdered By: Ervin Darling on 08-06-2023 Albumin/Globulin [Mass ratio] 0.9 {ratio} 0.9-2.4 [facility] ALP [Catalytic activity/Vol] 130 U/L 45-117 [facility] ALT [Catalytic activity/Vol] 20 U/L 13-56 [facility] CO2 [Moles/Vol] 27.0 mmol/L 21.0-32.0 [facility] Globulin (S) [Mass/Vol] 3.7 g/dL 2.2-4.2 [facility] Urea nitrogen/Creatinine [Mass ratio] 10.7 mg/mg 10-20 [facility] Laboratory - Hematology and Cell countsOrdered By: Ervin Darling on 08-06-2023 MCH (RBC) [Entitic mass] 29.3 pg 27.0-32.0 [facility] MCHC (RBC) [Mass/Vol] 32.6 g/dL 32-36 [place] Nucleated RBC/100 WBC (Bld) [Ratio] 0 % 0-5 [facility] Platelet mean volume (Bld) [Entitic vol] 10.9 fL 6.2-12.0 [facility] Platelets (Bld) [#/Vol] 237 10*3/uL 150-450 [facility] No Panel InformationOrdered By: Ervin Darling on 08-06-2023 C-Reactive Protein Extended Range 6.76 mg/L 0.0-3.0 [facility] Comment on above: C-Reactive Protein ( CRP) provides useful information for thediagnosis, therapy and monitoring of inflammatory processesand associated diseases. For the evaluation of Relative Riskfor Cardiovascular Disease, a High Sensitivity CRP (HSCRP)should be ordered. Estimated GFR (MDRD) Amer 75 mL/min >60 [facility] Comment on above: GFR Calc Estimated GFR (MDRD) Non-Af Amer 62 mL/min >60 [facility] Comment on above: Non- GFR Calc Prealbuminon 08-06-2023 Prealbumin [Mass/Vol] 16.0 mg/dL Low 20.0-40.0 [place] Comment on above: Performed By: #### L 506.0500, L100.0100, L501.6710, L500.4050 ####[facility] [address] [place], [address] RBC Auto (Bld) [#/Vol]Ordere d By: Ervin Darling on 08-06-2023 RBC (Bld) [#/Vol] 4.34 10*6/uL 4.2-5.4 [facility] Serum or plasma calcium magdalena urement (mass/volume)Ordered By: Ervin Darling on 08-06-2023 Calcium [Mass/Vol] 9.4 mg/dL 8.5-10.1 [facility] Serum or plasma creatinine m easurement (mass/volume)Ordered By: Ervin Darling on 08-06-2023 Creatinine [Mass/Vol] 0.94 mg/dL 0.55-1.02 [place] Comment on above: The validity of the calculated GFR & GFRAA in patients over 70 years has not been determined. Clinical correlation is essential. Serum or plasma transthyreti n measurement (mass/volume)Ordered By: Ervin Darling on 08-06-2023 Prealbumin [Mass/Vol] 16.0 mg/dL 20.0-40.0 [place] Serum or plasma urea nitroge n measurement (mass/volume)Ordered By: Ervin Darling on 08-06-2023 Urea nitrogen [Mass/Vol] 10 mg/dL 7-18 [facility] Thin prep Papanicolaou smear with manual screeningOrdered By: Ervin Darling on 08-06-2023 Thin prep Papanicolaou smear with manual screening 3.5 g/dL 3.2-5.0 [facility] Thin prep Papanicolaou smear with manual screening 24 U/L 15-37 [facility] Thin prep Papanicolaou smear with manual screening 7 08-25 [facility] History AND Physic cherie 08-06-2023 Wound Ctr History & Physical Normal [facility] Anaerobic cultureOrdered By: Mac Hess on 08-05-2023 Bacteria identified Anaer cx Nom (Unsp spec) No anaerobic bacteria isolated. [facility] Bacteria identified Cx Nom ( Wound)Ordered By: Mac Hess on 08-05-2023 Wound Culture Pseudomonas aeruginosa [facility] Wound Culture Escherichia coli [facility] Gram stain for investigation of transfusion reactionOrdered By: Mac Hess on 08-05-2023 Microscopic observation Gram stain Nom (Unsp spec) [facility] Urgent [facility] Visit Reporton 0 08-05-2023 Urgent Care Visit Report Normal [facility] Absolute lymphocyte countOrd ered By: Zulyhardeep Blas on 02-25-2023 Lymphocytes Auto (Unsp spec) [#/Vol] 1.07 10*3/uL 0.83-4.51 [facility] Basophil percentageOrdered B y: Zuly Roopa on 02-25-2023 Basophils/100 WBC (Bld) 1.3 % 0-1 [facility] Bilirubin [Mass/Vol] 0.30 mg/dL 0.20-1.00 [facility] Comment on above: For patients on eltr ombopag therapy, use of Dimension [place] TBIL is not recommended. Chloride [Moles/Vol] 102 mmol/L 98-107 [facility] Eosinophils/100 WBC (Bld) 2.8 % 0-5 [facility] Glucose [Mass/Vol] 104 mg/dL 74-106 [facility] Comment on above: Fasting Glucose resu lt from 100 to 125 mg/dL suggests IMPAIRED HOMEOSTASIS per A.D.A. criteria. Neutrophils (Bld) [#/Vol] 3.1 10*3/uL 2.0-7.7 [facility] Neutrophils/100 WBC (Bld) 65.6 % 47-70 [facility] Potassium [Moles/Vol] 4.3 mmol/L 3.5-5.1 [place] Protein [Mass/Vol] 6.9 g/dL 6.4-8.2 [facility] Sodium [Moles/Vol] 136 mmol/L 136-145 [facility] WBC (Bld) [#/Vol] 4.7 10*3/uL 4.4-11.0 [facility] Blood erythrocytes count (nu mber/volume)Ordered By: Zuly Blas on 02-25-2023 RBC (Bld) [#/Vol] 4.50 10*6/uL 4.2-5.4 [facility] Blood hemoglobin measurement (mass/volume)Ordered By: Zuly Blas on 02-25-2023 Hemoglobin (Bld) [Mass/Vol] 13.2 g/dL 12.0-15.0 [facility] Blood lymphocytes/100 leukoc ytesOrdered By: Zuly Blas on 02-25-2023 Lymphocytes/100 WBC (Bld) 22.7 % 19-41 [facility] Blood monocytes/100 leukocyt esOrdered By: Zuly Blas on 02-25-2023 Monocytes/100 WBC (Bld) 7.0 % 0-10 [facility] Blood platelet mean volumeOr dered By: Zuly Blas on 02-25-2023 Platelet mean volume (Bld) [Entitic vol] 11.0 fL 6.2-12.0 [facility] Determination of erythrocyte mean corpuscular volume (MCV)Ordered By: Zuly Blas on 02-25-2023 MCV (RBC) [Entitic vol] 92.0 fL 81-99 [facility] Hematocrit Auto (Bld) [Volum e fraction]Ordered By: Zuly Blas on 02-25-2023 Hematocrit (Bld) [Volume fraction] 41.4 % 37-47 [facility] Laboratory - Chemistry and C hemistry - challengeOrdered By: Zuly Blas on 02-25-2023 ALP [Catalytic activity/Vol] 163 U/L 45-117 [facility] ALT [Catalytic activity/Vol] 18 U/L 13-56 [facility] CO2 [Moles/Vol] 26.0 mmol/L 21.0-32.0 [facility] Free T4 [Mass/Vol] 1.13 ng/dL 0.76-1.46 [facility] Globulin (S) [Mass/Vol] 3.7 g/dL 2.2-4.2 [facility] Urea nitrogen/Creatinine [Mass ratio] 11.2 mg/mg 10-20 [facility] Laboratory - Hematology and Cell countsOrdered By: Zuly Blas on 02-25-2023 Erythrocyte distribution width (RBC) [Entitic vol] 51.2 fL 35.1-43.9 [facility] Erythrocyte distribution width (RBC) [Ratio] 15.1 % 11.6-14.6 [facility] Immature granulocytes/100 WBC (Bld) 0.600 % 0.0-0.9 [facility] Comment on above: IG% - Immature Granu locytes (promyelocytes, myelocytes and metamyelocytes) > 1% indicates that a LEFT SHIFT is Present. MCH (RBC) [Entitic mass] 29.3 pg 27.0-32.0 [facility] Nucleated RBC/100 WBC (Bld) [Ratio] 0 % 0-5 [facility] MCHC Auto (RBC) [Mass/Vol]Or dered By: Zuly Blas on 02-25-2023 MCHC (RBC) [Mass/Vol] 31.9 g/dL 32-36 [place] No Panel InformationOrdered By: Zuly Blas on 02-25-2023 Estimated GFR (MDRD) Amer 79 mL/min >60 [facility] Comment on above: GFR Calc Estimated GFR (MDRD) Non-Af Amer 65 mL/min >60 [facility] Comment on above: Non- GFR Calc Free Triiodothyronine (T3) pg/dL 2.2 pg/mL 2.18-3.98 [facility] Thyroid Stimulating Hormone (TSH) 0.75 uIU/mL 0.358-3.74 [facility] Platelets bldOrdered By: Carmen Blas on 02-25-2023 Platelets (Bld) [#/Vol] 257 10*3/uL 150-450 [facility] Serum or plasma albumin magdalena urement (mass/volume)Ordered By: Zuly Blas on 02-25-2023 Albumin [Mass/Vol] 3.2 g/dL 3.2-5.0 [facility] Serum or plasma albumin/glob ulin mass ratioOrdered By: Zuly Blas on 02-25-2023 Albumin/Globulin [Mass ratio] 0.9 {ratio} 0.9-2.4 [facility] Serum or plasma calcium magdalena urement (mass/volume)Ordered By: Zuly Blas on 02-25-2023 Calcium [Mass/Vol] 8.5 mg/dL 8.5-10.1 [facility] Serum or plasma creatinine m easurement (mass/volume)Ordered By: Zuly Blas on 02-25-2023 Creatinine [Mass/Vol] 0.89 mg/dL 0.55-1.02 [place] Comment on above: The validity of the calculated GFR & GFRAA in patients over 70 years has not been determined. Clinical correlation is essential. Serum or plasma urea nitroge n measurement (mass/volume)Ordered By: Zuly Blas on 02-25-2023 Urea nitrogen [Mass/Vol] 10 mg/dL 10-28 [facility] Thin prep Papanicolaou smear with manual screeningOrdered By: Zuly Blas on 02-25-2023 Thin prep Papanicolaou smear with manual screening 24 U/L [facility] Thin prep Papanicolaou smear with manual screening 8 - [facility] Laboratory - Chemistry and C hemistry - challengeOrdered By: Zuly Blas on 12-02-2022 Free T4 [Mass/Vol] 1.30 ng/dL 0.76-1.46 [facility] No Panel InformationOrdered By: Zuly Blas on 12-02-2022 Free Triiodothyronine (T3) pg/dL 2.6 pg/mL 2.18-3.98 [facility] Thyroid Stimulating Hormone (TSH) 0.05 uIU/mL 0.358-3.74 [facility] Laboratory - Chemistry and C hemistry - challengeOrdered By: Zuly Blas on 08-27-2022 Free T4 [Mass/Vol] 1.45 ng/dL 0.76-1.46 [facility] No Panel InformationOrdered By: Zuly Blas on 08-27-2022 Free Triiodothyronine (T3) pg/dL 2.7 pg/mL 2.18-3.98 [facility] Thyroid Stimulating Hormone (TSH) 0.20 uIU/mL 0.358-3.74 [facility] Stool lactoferrin detection by immunoassayOrdered By: Dr. Blas on 05-26-2022 Lactoferrin IA Ql (Stl) [facility] Absolute lymphocyte countOrd ered By: Dr. Blas on 05-21-2022 Lymphocytes Auto (Unsp spec) [#/Vol] 1.27 10*3/uL 0.83-4.51 [facility] Basophil percentageOrdered B y: Dr. Blas on 05-21-2022 Basophils/100 WBC (Bld) 1.3 % 0-1 [facility] Bilirubin [Mass/Vol] 0.50 mg/dL 0.20-1.00 [facility] Comment on above: For patients on eltr ombopag therapy, use of Dimension [place] TBIL is not recommended. Chloride [Moles/Vol] 103 mmol/L 98-107 [facility] Eosinophils/100 WBC (Bld) 3.2 % 0-5 [facility] Glucose [Mass/Vol] 103 mg/dL 74-106 [facility] Comment on above: Fasting Glucose resu lt from 100 to 125 mg/dL suggests IMPAIRED HOMEOSTASIS per A.D.A. criteria. Neutrophils (Bld) [#/Vol] 3.3 10*3/uL 2.0-7.7 [facility] Neutrophils/100 WBC (Bld) 62.5 % 47-70 [facility] Potassium [Moles/Vol] 4.6 mmol/L 3.5-5.1 [place] Protein [Mass/Vol] 7.5 g/dL 6.4-8.2 [facility] Sodium [Moles/Vol] 136 mmol/L 136-145 [facility] WBC (Bld) [#/Vol] 5.3 10*3/uL 4.4-11.0 [facility] Blood erythrocytes count (nu mber/volume)Ordered By: Dr. Blas on 05-21-2022 RBC (Bld) [#/Vol] 4.36 10*6/uL 4.2-5.4 [facility] Blood hemoglobin measurement (mass/volume)Ordered By: Dr. Blas on 05-21-2022 Hemoglobin (Bld) [Mass/Vol] 12.7 g/dL 12.0-15.0 [facility] Blood lymphocytes/100 leukoc ytesOrdered By: Dr. Blas on 05-21-2022 Lymphocytes/100 WBC (Bld) 23.9 % 19-41 [facility] Blood monocytes/100 leukocyt esOrdered By: Dr. Blas on 05-21-2022 Monocytes/100 WBC (Bld) 8.3 % 0-10 [facility] Blood platelet mean volumeOr dered By: Dr. Blas on 05-21-2022 Platelet mean volume (Bld) [Entitic vol] 10.8 fL 6.2-12.0 [facility] Determination of erythrocyte mean corpuscular volume (MCV)Ordered By: Dr. Blas on 05-21-2022 MCV (RBC) [Entitic vol] 90.1 fL 81-99 [facility] Hematocrit Auto (Bld) [Volum e fraction]Ordered By: Dr. Blas on 05-21-2022 Hematocrit (Bld) [Volume fraction] 39.3 % 37-47 [facility] Laboratory - Chemistry and C hemistry - challengeOrdered By: Dr. Blas on 05-21-2022 ALP [Catalytic activity/Vol] 136 U/L 45-117 [facility] ALT [Catalytic activity/Vol] 27 U/L 13-56 [facility] CO2 [Moles/Vol] 27.0 mmol/L 21.0-32.0 [facility] Free T4 [Mass/Vol] 1.41 ng/dL 0.76-1.46 [facility] Globulin (S) [Mass/Vol] 4.2 g/dL 2.2-4.2 [facility] Urea nitrogen/Creatinine [Mass ratio] 12.1 mg/mg 10-20 [facility] Laboratory - Hematology and Cell countsOrdered By: Dr. Blas on 05-21-2022 Erythrocyte distribution width (RBC) [Entitic vol] 49.2 fL 35.1-43.9 [facility] Erythrocyte distribution width (RBC) [Ratio] 14.7 % 11.6-14.6 [facility] Immature granulocytes/100 WBC (Bld) 0.800 % 0.0-0.9 [facility] Comment on above: IG% - Immature Granu locytes (promyelocytes, myelocytes and metamyelocytes) > 1% indicates that a LEFT SHIFT is Present. MCH (RBC) [Entitic mass] 29.1 pg 27.0-32.0 [facility] Nucleated RBC/100 WBC (Bld) [Ratio] 0 % 0-5 [facility] MCHC Auto (RBC) [Mass/Vol]Or dered By: Dr. Blas on 05-21-2022 MCHC (RBC) [Mass/Vol] 32.3 g/dL 32-36 [place] No Panel InformationOrdered By: Dr. Blas on 05-21-2022 Estimated GFR (MDRD) Amer 77 mL/min >60 [facility] Comment on above: GFR Calc Estimated GFR (MDRD) Non-Af Amer 64 mL/min >60 [facility] Comment on above: Non- GFR Calc Free Triiodothyronine (T3) pg/dL 1.8 pg/mL 2.18-3.98 [facility] Thyroid Stimulating Hormone (TSH) 1.37 uIU/mL 0.358-3.74 [facility] Platelets bldOrdered By: Dr. Blas on 05-21-2022 Platelets (Bld) [#/Vol] 295 10*3/uL 150-450 [facility] Serum or plasma albumin magdalena urement (mass/volume)Ordered By: Dr. Blas on 05-21-2022 Albumin [Mass/Vol] 3.3 g/dL 3.2-5.0 [facility] Serum or plasma albumin/glob ulin mass ratioOrdered By: Dr. Blas on 05-21-2022 Albumin/Globulin [Mass ratio] 0.8 {ratio} 0.9-2.4 [facility] Serum or plasma calcium magdalena urement (mass/volume)Ordered By: Dr. Blsa on 05-21-2022 Calcium [Mass/Vol] 9.1 mg/dL 8.5-10.1 [facility] Serum or plasma creatinine m easurement (mass/volume)Ordered By: Dr. Blas on 05-21-2022 Creatinine [Mass/Vol] 0.91 mg/dL 0.55-1.02 [place] Comment on above: The validity of the calculated GFR & GFRAA in patients over 70 years has not been determined. Clinical correlation is essential. Serum or plasma urea nitroge n measurement (mass/volume)Ordered By: Dr. Blas on 05-21-2022 Urea nitrogen [Mass/Vol] 11 mg/dL 7-18 [facility] Thin prep Papanicolaou smear with manual screeningOrdered By: Dr. Blas on 05-21-2022 Thin prep Papanicolaou smear with manual screening 31 U/L 15-37 [facility] Thin prep Papanicolaou smear with manual screening 6 5-15 [facility] Laboratory - Microbiology an d Antimicrobial susceptibilityon 10-15-2021 SARS-CoV-2 (COVID-19) RNA RADHA+probe Ql (Unsp spec) Not detected Not Detect [facility] Work Phone: Comment on above: Normal Reference Ran ge: Not DetectedMethod:(RT-PCR) real-time reverse transcriptase PCRLuminex Agnitus Instrument*The Food and Drug Administration (FDA) has issued an Emergency Use Authorization (EAU) for the Agnitus SARS-CoV-2 Assay for the rapid detection of the virus that causes COVID-19. This test has been validated, but the FDAs independent review of this validation is pending.*Negative results do not preclude infection and should not be used as the sole basis for treatment or patient management. Optimum specimen types and timing for peak viral levels during infections caused by SARS-CoV-2 have not been determined. Collection of multiple specimens from the same patient may be necessary to detect the virus. The possibility of a false negative result should be considered if the patient has clinical presentation or has had recent exposure. Vital Signs Date Time Vital Sign Value Performing Clinician Facility 11-10-2023 14:45-0400 Body height 154.9 cm Lizz King APRN.[place] Work Phone: [facility] 11-10-2023 14:45-0400 Body mass index (BMI) [Ratio] 23.62 kg/m2 Lizz King APRN.CNP Work Phone: [facility] 11-10-2023 14:45-0400 Body weight 56.7 kg Lizz King APRN.[place] Work Phone: [facility] 11-10-2023 14:45-0400 Diastolic blood pressure 86 mm[Hg] Lizz Boozer 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 Work Phone: [facility] 11-10-2023 14:45-0400 Heart rate 84 /min Lizz Boozer 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 Work Phone: [facility] 11-10-2023 14:45-0400 Respiratory rate 18 /min Lizz Boozer 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 Work Phone: [facility] 11-10-2023 14:45-0400 SaO2% (BldA) [Mass fraction] 97 % Lizz Boozer 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 Work Phone: [facility] Comment on above: on 11-10-2023 14:45-0400 Systolic blood pressure 145 mm[Hg] Lizz Boozer 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 Work Phone: [facility] 10-28-2023 08:06-0400 Body height 154.9 cm Chasity Mir MD Work Phone: [facility] 10-28-2023 08:06-0400 Body mass index (BMI) [Ratio] 23.54 kg/m2 Chasity Mir MD Work Phone: [facility] 10-28-2023 08:06-0400 Body weight 56.52 kg Chasity Mir MD Work Phone: [facility] 10-28-2023 08:06-0400 Diastolic blood pressure 61 mm[Hg] Chasity Mir MD Work Phone: [facility] 10-28-2023 08:06-0400 Heart rate 87 /min Chasity Mir MD Work Phone: [facility] 10-28-2023 08:06-0400 SaO2% (BldA) [Mass fraction] 97 % Chasity Mir MD Work Phone: [facility] 10-28-2023 08:06-0400 Systolic blood pressure 106 mm[Hg] Chasity Mir MD Work Phone: [facility] 08-06-2023 09:59-0400 Body height 160.[address] Zuly Blas Work Phone: [facility] 08-06-2023 09:59-0400 Body mass index (BMI) [Ratio] 22.4 kg/m2 Dr. Zuly Blas Work Phone: [facility] 08-06-2023 09:59-0400 Body temperature 98.2 [degF] Dr. Zuly Blas Work Phone: [facility] 08-06-2023 09:59-0400 Body weight 57.[address] Zuly Blas Work Phone: [facility] 08-06-2023 09:59-0400 Diastolic blood pressure 69 mm[Hg] Dr. Zuly Blas Work Phone: [facility] 08-06-2023 09:59-0400 Heart rate 94 /min Dr. Zuly Blas Work Phone: [facility] 08-06-2023 09:59-0400 Respiratory rate 18 /min Dr. Zuly Blas Work Phone: [facility] 08-06-2023 09:59-0400 Systolic blood pressure 136 mm[Hg] Dr. Zuly Blas Work Phone: [facility] 08-05-2023 11:36-0400 Body temperature 97.9 [degF] Dr. Zuly Blas Work Phone: [facility] 08-05-2023 11:36-0400 Diastolic blood pressure 84 mm[Hg] Dr. Zuly Blas Work Phone: [facility] 08-05-2023 11:36-0400 Heart rate 91 /min Dr. Zuly Blas Work Phone: [facility] 08-05-2023 11:36-0400 Respiratory rate 17 /min Dr. Zuly Blas Work Phone: [facility] 08-05-2023 11:36-0400 SaO2% (BldA) [Mass fraction] 99 % Dr. Zuly Blas Work Phone: [facility] 08-05-2023 11:36-0400 Systolic blood pressure 150 mm[Hg] Dr. Zuly Blas Work Phone: [facility] 07-31-2023 09:25-0400 Body temperature 97.4 [degF] Dr. Zuly Blas Work Phone: [facility] 07-31-2023 09:25-0400 Diastolic blood pressure 63 mm[Hg] Dr. Zuly Blas Work Phone: [facility] 07-31-2023 09:25-0400 Heart rate 79 /min Dr. Zuly Blas Work Phone: [facility] 07-31-2023 09:25-0400 Respiratory rate 16 /min Dr. Zuly Blas Work Phone: [facility] 07-31-2023 09:25-0400 SaO2% (BldA) [Mass fraction] 97 % Dr. Zuly Blas Work Phone: [facility] 07-31-2023 09:25-0400 Systolic blood pressure 106 mm[Hg] Dr. Zuly Blas Work Phone: [facility] 07-31-2023 09:07-0400 Inhaled oxygen flow rate 3 L/min Dr. Zuly Blas Work Phone: [facility] 07-31-2023 07:59-0400 Body height 160.[address] Zuly Blas Work Phone: [facility] 07-31-2023 07:59-0400 Body mass index (BMI) [Ratio] 22.3 kg/m2 Dr. Zuly Blas Work Phone: [facility] 07-31-2023 07:59-0400 Body weight 57.[address] Zuly Blas Work Phone: [facility] 07-27-2023 14:18-0400 Body temperature 98.1 [degF] Dr. Zuly Blas Work Phone: [facility] 07-27-2023 14:18-0400 Diastolic blood pressure 76 mm[Hg] Dr. Zuly Blas Work Phone: [facility] 07-27-2023 14:18-0400 Heart rate 93 /min Dr. Zuly Blas Work Phone: [facility] 07-27-2023 14:18-0400 Respiratory rate 12 /min Dr. Zuly Blas Work Phone: [facility] 07-27-2023 14:18-0400 SaO2% (BldA) [Mass fraction] 98 % Dr. Zuly Blas Work Phone: [facility] 07-27-2023 14:18-0400 Systolic blood pressure 110 mm[Hg] Dr. Zuly Blas Work Phone: [facility] 07-09-2023 09:03-0400 Body mass index (BMI) [Ratio] 24.3 kg/m2 Dr. Zuly Blas Work Phone: [facility] 07-09-2023 09:03-0400 Body temperature 97.4 [degF] Dr. Zuly Blas Work Phone: [facility] 07-09-2023 09:03-0400 Body weight 59.[address] Zuly Blas Work Phone: [facility] 07-09-2023 09:03-0400 Diastolic blood pressure 77 mm[Hg] Dr. Zuly Blas Work Phone: [facility] 07-09-2023 09:03-0400 Heart rate 84 /min Dr. Zuly Blas Work Phone: [facility] 07-09-2023 09:03-0400 Respiratory rate 18 /min Dr. Zuly Blas Work Phone: [facility] 07-09-2023 09:03-0400 SaO2% (BldA) [Mass fraction] 98 % Dr. Zuly Blas Work Phone: [facility] 07-09-2023 09:03-0400 Systolic blood pressure 120 mm[Hg] Dr. Zuly Blas Work Phone: [facility] 12-08-2022 14:11-0400 Body height 157.[address] Zuly Blas Work Phone: [facility] 12-08-2022 14:11-0400 Body mass index (BMI) [Ratio] 24.5 kg/m2 Dr. Zuly Blas Work Phone: [facility] 12-08-2022 14:11-0400 Body temperature 97.2 [degF] Dr. Zuly Blas Work Phone: [facility] 12-08-2022 14:11-0400 Body weight 60.[address] Zuly Blas Work Phone: [facility] 12-08-2022 14:11-0400 Diastolic blood pressure 85 mm[Hg] Dr. Zuly Blas Work Phone: [facility] 12-08-2022 14:11-0400 Heart rate 101 /min Dr. Zuly Blas Work Phone: [facility] 12-08-2022 14:11-0400 Respiratory rate 14 /min Dr. Zuly Blas Work Phone: [facility] 12-08-2022 14:11-0400 SaO2% (BldA) [Mass fraction] 98 % Dr. Zuly Blas Work Phone: [facility] 12-08-2022 14:11-0400 Systolic blood pressure 110 mm[Hg] Dr. Zuly Blas Work Phone: [facility] 03-14-2022 13:15-0500 Body height 154.94 cm [facility] 03-14-2022 13:15-0500 Body mass index (BMI) [Ratio] 26.4 kg/m2 [facility] 03-14-2022 13:15-0500 Body temperature 97 [degF] [facility] 03-14-2022 13:15-0500 Body weight 63.5 kg [facility] 03-14-2022 13:15-0500 Diastolic blood pressure 71 mm[Hg] [facility] 03-14-2022 13:15-0500 Heart rate 93 /min [facility] 03-14-2022 13:15-0500 Respiratory rate 18 /min [facility] 03-14-2022 13:15-0500 SaO2% (BldA) [Mass fraction] 98 % [facility] 03-14-2022 13:15-0500 Systolic blood pressure 126 mm[Hg] [facility] 09-17-2021 09:04-0400 Diastolic blood pressure 64 mm[Hg] [facility] Work Phone: 09-17-2021 09:04-0400 Heart rate 72 /min [facility] Work Phone: 09-17-2021 09:04-0400 Systolic blood pressure 122 mm[Hg] [facility] Work Phone: 09-17-2021 08:33-0400 Body height 160.02 cm [facility] Work Phone: 09-17-2021 08:33-0400 Body mass index (BMI) [Ratio] 26.2 kg/m2 [facility] Work Phone: 09-17-2021 08:33-0400 Body temperature 96.8 [degF] [facility] Work Phone: 09-17-2021 08:33-0400 Body weight 67.13 kg [facility] Work Phone: 09-17-2021 08:33-0400 Respiratory rate 20 /min [facility] Work Phone: 09-17-2021 08:33-0400 SaO2% (BldA) [Mass fraction] 95 % [facility] Work Phone: 08-27-2021 [id number] Body height 160.02 cm [facility] Work Phone: Encounters Encounter Date Encounter Type Care Provider Facility Start: 07-25-2024 End: 07-25-[address] Zuly Blas DO Work Phone: [facility] Work Phone: Start: 07-25-2024 End: 07-25-[address] Zuly Blas DO -Laboratory, [facility] Start: 07-25-2024 End: 07-25-2024 [facility] Start: 06-02-2024 End: 06-02-[address] Reginaldo Cool MD -[facility] Work Phone: Start: 06-02-2024 End: 06-02-2024 ambulatory Zuly Roopa Facility:[facility] Start: 04-25-2024 End: 04-25-2024 [facility] Start: 04-25-2024 End: 04-25-[address] Reginaldo Cool MD -Physical Therapy Work Phone: Start: 04-15-2024 End: 04-15-2024 Telephone encounter Lizz King APRN.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 Work Phone: [facility] Comment on above: Patient Update Start: 03-15-2024 End: 03-15-2024 Telephone encounter Lizz King APRN.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 Work Phone: [facility] Comment on above: Patient Update Start: 02-12-2024 End: 02-12-2024 ambulatory Zuly Roopa Facility:[facility] Start: 02-05-2024 End: 02-05-2024 Telephone encounter Lizz King APRN.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 Work Phone: [facility] Comment on above: Patient Update Start: 01-25-2024 End: 01-25-2024 ambulatory Zuly Malys Facility:[facility] Start: 01-01-2024 End: 01-01-2024 Telephone encounter Lizz King APRN.CNP Work Phone: [facility] Comment on above: Patient Update Start: 12-25-2023 End: 12-25-2023 ambulatory Zuly Malys Facility:[facility] Start: 12-23-2023 End: 12-23-2023 ambulatory Zuly Malys Facility:[facility] Start: 11-27-2023 End: 11-27-2023 ambulatory Zuly Malys Facility:[facility] Start: 11-24-2023 End: 11-24-2023 ambulatory Zuly Malys Facility:[facility] Start: 11-24-2023 Telephone encounter Chasity anderson MD Work Phone: [facility] Comment on above: Appointment Start: 11-23-2023 Telephone encounter Lizz minaya APRN.CNP Work Phone: [facility] Comment on above: Patient Update Start: 11-12-2023 End: 11-18-2023 Evaluation and management of inpatient Khang Jj Facility:[facility] Start: 11-12-2023 ambulatory Zuly Malys Facility:[facility] Start: 11-10-2023 End: 11-10-2023 Patient encounter procedure Lizz King APRN.CNP Work Phone: [facility] Comment on above: Paraesophageal herni a (Primary Dx); Moderate smoker (20 or less per day); PONV (postoperative nausea and vomiting); Loss of weight; Other iron deficiency anemia; Gastroesophageal reflux disease, unspecified whether esophagitis present; Personal history of colon cancer; Hyperlipidemia, unspecified hyperlipidemia type; Tobacco use disorder; Depression, unspecified depression type Start: 11-10-2023 End: 11-10-2023 ambulatory LIZZ KING Facility:[facility] Start: 11-10-2023 ambulatory CHASITY MIR Facility: [facility] Start: 11-10-2023 End: 11-10-2023 Subsequent hospital visit by physician Gi/Gu 1 [facility] Comment on above: Paraesophageal herni a [K44.9] Start: 11-06-2023 Telephone encounter Chasity anderson MD Work Phone: [facility] Start: 11-02-2023 End: 11-02-2023 Nursing evaluation of patient and report Mi Nurse Work Phone: [facility] Comment on above: Paraesophageal herni a Start: 11-02-2023 End: 11-02-2023 Subsequent hospital visit by physician Xr [facility] Work Phone: Radiology Comment on above: Paraesophageal herni a [K44.9] Start: 11-02-2023 End: 11-02-2023 ambulatory CHASITY MIR Facility:[facility] Start: 10-29-2023 Telephone encounter Chasity anderson MD Work Phone: [facility] Comment on above: Future Appointment ( Esophageal manometry/) Start: 10-28-2023 Telephone encounter Chasity anderson MD Work Phone: [facility] Comment on above: Appointment (Manomet ry ) Start: 10-28-2023 End: 10-28-2023 Patient encounter procedure Chasity Mir MD Work Phone: [facility] Comment on above: Paraesophageal herni a (Primary Dx); Gastroesophageal reflux disease without esophagitis; Tobacco use disorder; Esophageal dysphagia; Hyperlipidemia, unspecified hyperlipidemia type; Depression, unspecified depression type Start: 10-28-2023 End: 10-28-2023 ambulatory CHASITY MIR Facility:[facility] Start: 09-24-2023 End: 09-25-2023 ambulatory Mac WANG Facility:[facility] Start: 09-18-2023 End: 09-18-2023 [facility] Start: 09-17-2023 ambulatory Mac WANG Facil ity:[facility] Start: 09-10-2023 End: 09-11-2023 [facility] Start: 09-03-2023 ambulatory Mac WANG Facil ity:[facility] Start: 08-27-2023 ambulatory Mac WANG Facil ity:[facility] Start: 08-20-2023 ambulatory Mac WANG Facil ity:[facility] Start: 08-13-2023 ambulatory Zuly Blas Facility:[facility] Start: 08-11-2023 End: 08-11-[address] Zuly Blas Work Phone: [facility] Work Phone: Start: 08-11-2023 End: 08-11-2023 ambulatory Zuly Blas Facility:[facility] Start: 08-06-2023 End: 08-06-[address] Zuly Blas Work Phone: [facility] Work Phone: Start: 08-06-2023 End: 08-06-[address] Zuly Blas Work Phone: [facility] Work Phone: Start: 08-06-2023 ambulatory Zuly Blas Facility:[facility] Start: 08-06-2023 Non-patient / Non-visit Dr. Lia Blas Work Phone: [facility] Work Phone: Start: 08-06-2023 End: 08-11-[address] [facility] Work Phone: Start: 08-06-[address] [facility] Work Phone: Start: 08-06-2023 End: 08-11-[address] Zuly Blas Work Phone: [facility] Work Phone: Start: 08-05-2023 End: 08-06-[address] Zuly Blas Work Phone: [facility] Work Phone: Start: 08-05-2023 End: 08-05-[address] Zuly Blas Work Phone: [facility]Laboratory, Specimen Work Phone: Start: 08-05-2023 End: 08-05-[address] Zuly Blas Work Phone: [facility] Work Phone: Start: 08-05-2023 End: 08-05-2023 ambulatory Zuly Blas Facility:[facility] [place] [place] Start: 08-05-2023 End: 08-05-2023 ambulatory Zuly Blas Facility:[facility] Start: 07-31-2023 Non-patient / Non-visit Dr. Lia Blas Work Phone: [facility] Start: 07-31-2023 End: 07-31-2023 Admission to same day surgery center Dr. Zuly Blas Work Phone: [facility]End[facility] Work Phone: Start: 07-31-2023 End: 07-31-[address] Zuly Blas Work Phone: [facility] Work Phone: Start: 07-27-2023 End: 07-27-[address] Zuly Blas Work Phone: [facility] Work Phone: Start: 07-27-2023 End: 07-27-[address] Zuly Blas Work Phone: [facility] Work Phone: Start: 07-09-2023 End: 07-09-[address] Zuly Blas Work Phone: [facility] Work Phone: Start: 02-25-2023 End: 02-25-[address] Zuly Blas Work Phone: [facility] Work Phone: Start: 02-25-2023 End: 02-25-[address] Zuly Blas Work Phone: [facility] Start: 01-22-2023 End: 01-22-[address] Zuly Blas Work Phone: [facility] Work Phone: Start: 01-22-2023 End: 01-22-[address] Zuly Blas Work Phone: [facility]Out[facility] Breast Imaging Work Phone: Start: 12-08-2022 Non-patient / Non-visit Dr. Lia Blas Work Phone: [facility] Start: 12-08-2022 End: 12-08-2022 Emergency department patient visit Dr. Zuly Blas Work Phone: [facility]gency Department Work Phone: Start: 12-02-2022 End: 12-02-[address] Zuly Blas Work Phone: [facility] Work Phone: Start: 12-02-2022 End: 12-02-[address] Zuly Blas Work Phone: [facility] Start: 08-27-2022 End: 08-27-[address] Zuly Blas Work Phone: [facility] Start: 05-26-2022 End: 05-26-2022 ambulatory [facility] Work Phone: Start: 05-26-2022 End: 05-26-2022 Patient encounter procedure [facility] Spec[facility] Start: 05-21-2022 End: 05-21-2022 ambulatory [facility] Work Phone: Start: 05-21-2022 End: 05-21-2022 Patient encounter procedure [facility], [facility] Start: 03-14-2022 End: 03-14-2022 Emergency department patient visit [facility] Start: 01-21-2022 End: 01-21-2022 ambulatory [facility] Work Phone: Start: 01-21-2022 End: 01-21-2022 Patient encounter procedure [facility] Start: 10-15-2021 End: 10-15-2021 Patient encounter procedure [facility], Specimen Start: 09-17-2021 End: 09-17-2021 Patient encounter procedure [facility] Start: 08-27-2021 End: 08-27-2021 Patient encounter procedure [facility] Bone Densitometry Procedures Date Procedure Procedure Detail Performing Clinician Start: 06-02-2024 Plain x-ray of pelvi s and lower extremity Dr. Zuly Blas DO Work Phone: Start: 11-10-2023 Radiologic exam upr gi trc double contrast study Chasity Mir MD Work Phone: Start: 11-02-2023 Radiologic exam ches t 2 views Chasity Mir MD Work Phone: Start: 08-06-2023 Investigation of transfusion reaction Dr. Zuly Blas Work Phone: Start: 08-06-2023 Microbial culture, routine Dr. Zuly Blas Work Phone: Start: 08-05-[address] Zuly Blas Work Phone: Start: 08-05-2023 Investigation of transfusion reaction Dr. Zuly Blas Work Phone: Start: 08-05-2023 Microbial culture, routine Dr. Zuly Blas Work Phone: Start: 07-31-[address] Zuly chavis Work Phone: Start: 07-27-2023 Plain X-ray of tibia and fibula Dr. Zuly Blas Work Phone: Start: 01-22-2023 Screening mammography Sherry Blas Work Phone: Start: 12-08-[address] Kylah Blas Work Phone: Start: 01-21-2022 Screening mammography Start: 08-27-2021 Dual energy X-ray absorptiometry Lactoferrin measurement Plan of Treatment Date Care Activity Detail Author Start: 11-01-2026 Diabetes Screening Diabetes Screening [facility] Start: 04-13-2024 Advance Directive Discussion Advance Directive Discussion [facility] Start: 12-13-2023 Covid-19 Vaccine ( season) Covid-19 Vaccine () [facility] Start: 12-13-2023 Covid-19 Vaccine ( season) Covid-19 Vaccine ( season) [facility] Start: 12-13-2023 Influenza vaccination Influenza Vaccine (#1) [facility] Start: 12-04-2023 End: 12-04-2023 Patient encounter procedure 12/04/2023 9:00 AM EDT Office Visit [facility] [address] [place] [address] Chasity Mir MD [address] [address] F/U - EKG, XRay, UGI , Mano , Op Clin [facility] Comment on above: F/U - EKG, XRay, UGI , Mano , Op Clin Start: 11-13-2023 End: 11-13-2023 Admission to same day surgery center 11/13/2023 9:00 AM EDT - 11/13/2023 10:00 AM EDT Surgery [facility] [place] [address] Chasity Mir MD [address] [place] [facility] [address] [address] [place] [address] ESOPHAGEAL MANOMETRY [facility] Comment on above: ESOPHAGEAL MANOMETRY Start: 11-13-2023 End: 11-13-2023 Esophageal motility study w/interp&rpt ESOPHAGEAL MANOMETRY Esophageal dysphagia 11/13/2023 9:00 AM EDT [facility] Start: 11-13-2023 Subsequent hospital visit by physician 11/13/2023 9:00 AM EDT Hospital Encounter [facility] [address] [address] Chasity Mir MD [address] [facility] [address] [place] [address] Esophageal dysphagia [R13.19] [facility] Comment on above: Esophageal dysphagia [R13.19] Start: 11-10-2023 End: 11-10-2023 Patient encounter procedure [facility] Comment on above: Paraesophageal hernia [K44.9] Paraesophageal herni a ; Adeola ref Start: 11-06-2023 End: 11-06-2023 Admission to same day surgery center 11/06/2023 9:00 AM EDT - 11/06/2023 10:00 AM EDT Surgery [facility] [address] [facility] [place] [address] Chasity Mir MD [address] [facility] [address] [place] [address] ESOPHAGEAL MANOMETRY [facility] Comment on above: ESOPHAGEAL MANOMETRY Start: 11-06-2023 End: 11-06-2023 Esophageal motility study w/interp&rpt ESOPHAGEAL MANOMETRY Paraesophageal hernia Gastroesophageal reflux disease without esophagitis 11/06/2023 9:00 AM EDT [facility] Start: 11-06-2023 Subsequent hospital visit by physician 11/06/2023 9:00 AM EDT Hospital Encounter [facility] [address] [place] [address] Chasity Mir MD [address] [facility] [address] [place] [address] Paraesophageal hernia [K44.9] [facility] Comment on above: Paraesophageal hernia [K44.9] Start: 11-02-2023 End: 11-02-2023 Patient encounter procedure 11/02/2023 11:20 AM EDT Appointment Radiology [address] [place] [address] chest XR Radiology Comment on above: chest XR Start: 11-02-2023 End: 11-02-2023 ambulatory 11/02/2023 11:00 AM EDT Results Only [facility] [address] [place] [address] lab [facility] Comment on above: lab Start: 11-02-2023 End: 11-02-2023 Nursing evaluation of patient and report 11/02/2023 10:45 AM EDT Nurse Visit [facility] [place] [address] [place] [address] Nurse, [place] [address] [place] [address] EKG [facility] [place] Comment on above: EKG Start: 10-28-2023 End: 01-27-2024 CBC W Auto Differential panel - Blood COMPLETE BLOOD COUNT AND DIFFERENTIAL Lab Routine Paraesophageal hernia Expected: 10/28/2023, Expires: 01/27/2024 [facility] Comment on above: Expected: 10/28/2023, Expires: Start: 10-28-2023 End: 01-27-2024 Comprehensive metabolic 2000 panel - Serum or Plasma COMPREHENSIVE METABOLIC PANEL Lab Routine Paraesophageal hernia Expected: 10/28/2023, Expires: 01/27/2024 [facility] Comment on above: Expected: 10/28/2023, Expires: Start: 10-28-2023 End: 01-27-2024 NICOTINE & METAB, UR NICOTINE & METAB, UR Lab Routine Tobacco use disorder Expected: 10/28/2023, Expires: 01/27/2024 [facility] Comment on above: Expected: 10/28/2023, Expires: Start: 08-11-2023 Patient referral [facility] Work Phone: Start: 08-06-2023 Anaerobic microbial culture Anaerobic Culture [facility] Start: 08-05-2023 Patient referral [facility] Work Phone: Start: 07-31-2023 Colonoscopy flx dx w/collj spec when pfrmd DIAGNOSTIC COLONOSCOPY [facility] Start: 07-31-2023 Esophagogastroduodenoscopy transoral diagnostic EGD DIAGNOSTIC BRUSH WASH [facility] Start: 07-31-2023 Patient discharge [facility] Start: 04-13-2023 Advance Directive Discussion Advance Directive Discussion [facility] Start: 04-13-2023 Behavioral Health Screening Behavioral Health Screening [facility] Start: 12-12-2022 Covid-19 Vaccine () Covid-19 Vaccine () [facility] Start: 09-17-2021 Iv infusion therapy/prophylaxis /dx 1st to 1 hr THER/PROPH/DIAG IV INF INIT [facility] Work Phone: Start: 2020 RSV Vaccine (1 - 1-dose 75+ series) RSV Vaccine (1 - 1-dose 75+ series) [facility] Start: 2010 Screening for osteoporosis Bone Density Screening [facility] Start: 09-22-2005 Diabetes Screening Diabetes Screening [facility] Start: 2005 RSV Vaccine (1 - 1-dose 60+ series) RSV Vaccine (1 - 1-dose 60+ series) [facility] Start: 1964 Pneumococcal Vaccine: 50+ (1 of 2 - PCV) Pneumococcal Vaccine: 50+ (1 of 2 - PCV) [facility] Start: 1964 Shingrix Vaccine (1 of 2) Shingrix Vaccine (1 of 2) [facility] Start: 1964 Urine microalbumin profile DTaP,Tdap,Td Vaccine (1 - Tdap) [facility] Start: 1963 Annual PCP Team Chronic Disease Visit Annual PCP Team Chronic Disease Visit [facility] Start: 1963 Anxiety Screening Anxiety Screening [facility] Start: 1963 Depression Screening Depression Screening [facility] Start: 1963 Hepatitis C screening Hepatitis C Screening [facility] Start: 1951 Pneumococcal Vaccine: 65+ (1 of 2 - PCV) Pneumococcal Vaccine: 65+ (1 of 2 - PCV) [facility] Colonoscopy [facility] End: 10-27-2024 ECG COMPLETE ECG COMPLETE ECG Routine Paraesophageal hernia 1 Occurrences starting 10/28/2023 until 10/27/2024 [facility] Comment on above: 1 Occurrences starting 10/28/2023 until 10/27/2024 End: 10-27-2024 Manometry Study observation Narrative MANOMETRY ESOPHAGEAL Endoscopy Routine Esophageal dysphagia 1 Occurrences starting 10/28/2023 until 10/27/2024 [facility] Comment on above: 1 Occurrences starting 10/28/2023 until 10/27/2024 Patient Education [facility] Work Phone: Patient referral [facility] Work Phone: End: 11-26-2024 RF Gastrointestinal tract upper Views W air contrast PO and W barium contrast PO XR UPPER GI ROUTINE DOUBLE CONTRAST/AIR Radiology Routine Paraesophageal hernia Gastroesophageal reflux disease without esophagitis 1 Occurrences starting 10/28/2023 until 11/26/2024 [facility] Work Phone: Comment on above: 1 Occurrences starting 10/28/2023 until 11/26/2024 End: 11-26-2024 XR Chest PA and Lateral XR CHEST 2V FRONTAL/LAT Radiology Routine Paraesophageal hernia 1 Occurrences starting 10/28/2023 until 11/26/2024 [facility] Comment on above: 1 Occurrences starting 10/28/2023 until 11/26/2024 [facility] [facility] Immun[facility] Immunization Date Immunization Notes Care Provider [facility] 02-25-2023 influenza virus vaccine, unspecified formulation Chasity Mir MD Work Phone: [facility] 06-14-2013 Influenza virus vaccine [facility] 06-11-2013 tetanus and diphther ia toxoids, adsorbed, preservative free, for adult use (2 Lf of tetanus toxoid and 2 Lf of diphtheria toxoid) [facility] 06-12-2011 Pneumococcal Vaccine [facility] Work Phone: 06-12-2011 pneumococcal vaccine , unspecified formulation [facility] Payers Date Payer Category Payer Self-pay [id number] 2023 Unknown ANTHEM BLUE CROS S AND BLUE SHIELD ANTHEM MEDICARE ADVANTAGE HMO [id number] 2023-[facility] [phone] [address] [place] [address] HMO [id number] 2023 Medicare [id number] 2013 Medicare [id number] Medicare [id number] Unknown [id number] 2.16.840.1.946884.3.579.2.462 Unknown [id number] 2.840.1.355163.3.579.2.462 Unknown [id number] 2.16840.1.238719.3.579.2.462 Unknown [id number] 2.16840.1.511802.3.579.2.462 Unknown [id number] 2.16840.1.381057.3.579.2.462 Unknown [id number] 2.16840.1.786181.3.579.2.462 Unknown [id number] 2.16840.1.549280.3.579.2.462 Unknown [id number] 2.16840.1.623971.3.579.2.462 Unknown [id number] 2.16840.1.105624.3.579.2.462 Unknown [id number] 2.16840.1.150563.3.579.2.462 Unknown [id number] 2.16840.1.576734.3.579.2.462 Unknown [id number] 2.16840.1.095022.3.579.2.462 Unknown [id number] 2.840.1.554393.3.579.2.462 Unknown [id number] 2.840.1.411938.3.579.2.462 Unknown [id number] 2.840.1.892241.3.579.2.462 Unknown [id number] 2.840.1.752382.3.579.2.462 Unknown [id number] 2.840.1.103995.3.579.2.462 Unknown [id number] 2.840.1.615042.3.579.2.462 Unknown [id number] 2.840.1.498240.3.579.2.462 Unknown [id number] 2.84.1.376095.3.579.2.462 Unknown [id number] 2.840.1.609558.3.579.2.462 Unknown [id number] 2.840.1.950150.3.579.2.462 Unknown [id number] .840.1.761837.3.579.2.462 Unknown [id number] 2.840.1.107350.3.579.2.462 Unknown [id number] 2.840.1.562446.3.579.2.462 Unknown [id number] .840.1.005824.3.579.2.462 Unknown [id number] .840.1.332862.3.579.2.462 Unknown [id number] 2.840.1.646303.3.579.2.462 Unknown [id number] 2.840.1.364941.3.579.2.462 Unknown [id number] 2.840.1.762817.3.579.2.462 Unknown [id number] 2.16840.1.046858.3.579.2.462 Unknown [id number] 2.16840.1.328789.3.579.2.462 Unknown [id number] 2.16.840.1.456694.3.579.2.462 Unknown [id number] 2.16840.1.959639.3.579.2.462 Unknown [id number] 2.16840.1.739736.3.579.2.462 Unknown [id number] 2.16840.1.325772.3.579.2.462 Unknown [id number] 2.16840.1.300863.3.579.2.462 Unknown [id number] 2.16840.1.110432.3.579.2.462 Unknown [id number] 2.840.1.390955.3.579.2.462 Unknown [id number] 2.840.1.029543.3.579.2.462 Social History Date Type Detail Facility Start: 02-07-2019 End: 08-06-2023 Tobacco smoking status HIIS Unknown if ever smoked [facility] Start: 11-15-2020 None [facility] Start: 11-15-2020 Homeless [facility] Start: 11-15-2020 Cigarettes [facility] Start: 1945 Sex Assigned At Female [facility] Start: 11-26-2015 End: 11-13-2023 Tobacco smoking status NHIS Smokes tobacco daily [facility] Start: 11-26-1995 History of tobacco use Cigarette Smo ker [facility] Start: 11-26-2015 End: 10-28-2023 Cigarettes smoked current (pack per day) - Reported 0.5 [facility] Start: 11-26-2015 End: 11-10-2023 Tobacco use and exposure Smokeless tobacco non-user [facility] Start: 10-28-2023 End: 11-24-2023 Alcohol intake Current drinker of alcohol (finding) [facility] Start: 10-28-2023 End: 11-10-2023 Tobacco use panel [facility] Start: 05-06-2011 End: 11-09-2023 Tobacco Comment Pt has cut back to 1/2 pack daily. [facility] Start: 1945 Sex Assigned At Not on file [facility] National Score (1-10 0), lower number is lower risk 50 [facility] Start: 07-29-2024 Sex [facility] (finding[facility] Procedure Code Equipment Code Equipment Origin al Text Equipment Identifier Dates ORIF, hip, using Gamma nail ([id number]) Orthopaedic bone screw, non-bioabsorbable, sterile [id number] FDA Start: 11-13-2023 ORIF, hip, using Gamma nail ([id number]) Orthopaedic bone screw, non-bioabsorbable, sterile ()[id number] FDA Start: 11-13-2023 ORIF, hip, using Gamma nail ([id number]) Femur nail, sterile [id number] FDA Start: 11-13-2023 Goals Date Patient Goal Desired Activity /State Mental Status Date Assessment Result Facility 07-31-2023 Cognitive function Voice/Name [facility] Work Phone: 09-17-2021 Cognitive function Voice/Name [facility] Work Phone: Clinical Notes 12-08-2022 to 06-02-2024 Note Date & Type Note Facility 06-02-2024 Evaluation note Diagnosis Onset Date Resolution Closed right hip fracture acute June 02 8:47am Leg length discrepancy acute Fe bru2024 8:47am [facility] Work Phone: [phone] 663-323201-03-2025 Telephone encounter Note* Telephone Encounter - Lizz King APRN.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 - 04/15/2024 9:19 AM ESTSummary: SOC/SV Updates Last two phone calls never returned to clinic. Patient is not scheduled for surgery nor has an upcoming appt with the surgeon. Will remove off of call list. -Lizz King APRN.CNP [facility]01-03-2025 Miscellaneous Notes* Telephone Encounter - Lizz King APRN.CNP - 04/15/2024 9:19 AM ESTSummary: SOC/SV Updates Last two phone calls never returned to clinic. Patient is not scheduled for surgery nor has an upcoming appt with the surgeon. Will remove off of call list. -Lizz King APRN.CNP [facility] Telephone encounter Note * Telephone Encounter - Lizz King APRN.CNP - 03/15/2024 3:51 PM EST Summary: GSV Updates LMV for patient to call clinic with updates. -Lizz [facility]12-03-2024 Miscellaneous Notes* Telephone Encounter - Lizz King APRN.CNP - 03/15/2024 3:51 PM ESTSummary: GSV Updates LMV for patient to call clinic with updates. -Lizz documented in [facility]Mer[facility]24 Telephone encounter Note * Telephone Encounter - Lizz King APRN.CNP - 02/05/2024 11:57 AM EDT Summary: GSV Updates LMV for patient to call clinic with updates. No appt with surgeon or surgery scheduled as of yet. Will place iron pourer back list for four weeks. -Lizz King APRN.CNP [facility]10-25-2024 Miscellaneous Notes* Telephone Encounter - Lizz King APRN.CNP - 02/05/2024 11:57 AM EDTSummary: GSV Updates LMV for patient to call clinic with updates. No appt with surgeon or surgery scheduled as of yet. Will place iron pourer back list for four weeks. -Lizz King APRN.CNP documented in this encounterMer[facility]09-20-2024 Telephone encounter Note * Telephone Encounter - Lizz King APRN.CNP - 01/01/2024 10:43 AM EDT Summary: GSV Updates Spoke with patient on the phone today for updates. Reports she is now doing rehab therapy at home, she is able to walk now with a cane. She reports she had recently loss some weight and is trying to put some back on. Would like to wait about another month before rescheduling with Dr. Mir to build up some strength. Will place iron pourer back list at this time. -Lizz King APRN.CNP [facility]09-20-2024 Miscellaneous Notes* Telephone Encounter - Lizz King APRN.CNP - 01/01/2024 10:43 AM EDTSummary: GSV Updates Spoke with patient on the phone today for updates. Reports she is now doing rehab therapy at home, she is able to walk now with a cane. She reports she had recently loss some weight and is trying to put some back on. Would like to wait about another month before rescheduling with Dr. Mir to build up some strength. Will place iron pourer back list at this time. -Lizz King APRN.CNP documented in this encounterMer[facility]08-13-2024 Telephone encounter Note * Telephone Encounter - Amelie Rai - 11/24/2023 1:01 PM EDT Left voicemail for the patient to get her scheduled for a follow up appt with based off her upper GI results. Looks like she had a follow up scheduled for 12/03 and cancelled it. I gave her my direct line on the voicemail to call me back and get scheduled. Amelie Rai [facility]08-13-2024 Miscellaneous Notes* Telephone Encounter - Amelie Rai - 11/24/2023 1:01 PM EDT Left voicemail for the patient to get her scheduled for a follow up appt with based off her upper GI results. Looks like she had a follow up scheduled for 12/03 and cancelled it. I gave her my direct line on the voicemail to call me back and get scheduled. Amelie Rai documented in this encounterMer[facility]08-12-2024 Telephone encounter Note * Telephone Encounter - Lizz King APRN.CNP - 11/23/2023 12:47 PM EDT Summary: GSV Updates Spoke with patient on the phone, she reports that she fell and broke her hip on 11/12/2023. She had surgical repair at [facility] and is now currently doing rehab. She would like to have her manometry and subsequent f/u appt with Dr. Mir rescheduled. Message sent to surgery staff. Lizz King APRN.CNP [facility]08-12-2024 Miscellaneous Notes* Telephone Encounter - Lizz King APRN.CNP - 11/23/2023 12:47 PM EDTSummary: GSV Updates Spoke with patient on the phone, she reports that she fell and broke her hip on 11/12/2023. She had surgical repair at [facility] and is now currently doing rehab. She would like to have her manometry and subsequent f/u appt with Dr. Mir rescheduled. Message sent to surgery staff. Lizz King APRN.CNP documented in this encounterMercy Health [facility]08-07-2024 [facility]07-30-2024 History of Present illness Narrative* Lizz King APRN.CNP - 11/10/2023 3:00 PM EDTSummary: GSV Images from the original note were not included. Lizz King APRN.CNP [facility] [address], [address] [place] [address] Patient: Sonia Noble Date of : 1945 Subjective Scheduled OR Date: TBD Surgeon: Dr. Mir PCP: No primary care provider on file. DIAGNOSES: Esophageal dysphagia, paraesophageal hernia PLANNED PROCEDURE: Paraesophageal hernia repair HPI Sonia Noble is a 78 year old female, who was recently evaluated for surgery and has elected to proceed with the above mentioned surgical intervention. Patient has a h/o anemia, GERD, osteoporosis, thyroid cancer with total thyroidectomy,, diverticulosis, colon cancer with surgery in 2016, smoker. She also has a h/o esophageal dysphagia and a paraesophageal hernia. She is on omeprazole. Shehad her upper GI series done today. She is scheduled for her esophageal manometry on 11/13/2023. Patient has met with Dr. Mir and surgery is TBD. Patient reports she has frequent heartburn. She alsotakes Mylanta and has also found that taking peanut butter helps ease symptoms. She also has occasio nal nausea and vomiting, decreased appetite and occasional epigastric pain which improves with she removes her bra. She also states that she had about a 10 pound weight loss in the past year. She hasfrequent diarrhea since her colon cancer surgery in 2016. She denies any constipation or blood in the stool. Denies any CP, SOBE, syncope, or falls. Denies any recent fevers or chills. Patient lives with: Spouse, Gustavo Overall Health Goal (Patient's own words, I.e. I just want to feel better): Feel better Treatment Goal (What do you hope surgery will accomplish?): Repair my hernia Does patient want another office visit to discuss any surgical decision-making issues AGAIN prior to surgery? Yes, will meet again after testing is done PAST MEDICAL HISTORY PAST MEDICAL HISTORY Diagnosis Date Anemia Colon cancer (HCC) 12/31/2015 Diverticulitis of colon (without mention of hemorrhage)(562.11) Esophageal reflux Family history of malignant neoplasm of gastrointestinal tract Fracture of pelvis (HCC) Heart burn High risk bisexual behavior Iron deficiency anemia, unspecified Mental disorder depression Osteoporosis PONV (postoperative nausea and vomiting) Reticulosarcoma of lymph nodes of head, face, and neck (HCC) Snoring Thyroid ca (HCC) FAMILY HISTORY FAMILY HISTORY Problem Relation Age of Onset Colon Cancer Father Heart Mother Cancer Brother Exposed to agent orange Cancer Maternal Grandmother Ovarian ca/goiter Prostate Cancer Maternal Grandfather Headache Sister Migraines Thyroid Sister PAST SURGICAL HISTORY PAST MEDICAL HISTORY Diagnosis Date Anemia Colon cancer (HCC) 12/31/2015 Diverticulitis of colon (without mention of hemorrhage)(562.11) Esophageal reflux Family history of malignant neoplasm of gastrointestinal tract Fracture of pelvis (HCC) Heart burn High risk bisexual behavior Iron deficiency anemia, unspecified Mental disorder depression Osteoporosis PONV (postoperative nausea and vomiting) Reticulosarcoma of lymph nodes of head, face, and neck (HCC) Snoring Thyroid ca (HCC) ALLERGIES ALLERGIES Allergen Reactions Darvocet A500 [Prop* GI Upset, Vomiting Darvon [Propoxyphen* GI Upset Sulfa (Sulfonamide * Hives, GI Upset, Vomiting MEDICATIONS Current Outpatient Medications Medication Sig Dispense Refill buPROPion XL (WELLBUTRIN XL) 150 mg 24 hr tablet Take 150 mg by mouth once daily. pravastatin (PRAVACHOL) 10 mg tablet Take 10 mg by mouth once daily. sertraline (ZOLOFT) 100 mg tablet Take 100 mg by mouth once daily. meloxicam (MOBIC) 15 mg tablet Take 15 mg by mouth once daily. CALCIUM CARBONATE/VITAMIN D3 (CALCIUM + D ORAL) Take by mouth. LORazepam (ATIVAN) 1 mg tablet Take 1 tablet by mouth daily at bedtime. VITAMIN B COMPLEX (B-COMPLEX ORAL) Take by mouth. levothyroxine (LEVOXYL) 125 mcg ORAL tablet Take 100 mcg by mouth once daily. multivitamin ORAL tablet Take 2 tablets by mouth once daily. omeprazole magnesium(PRILOSEC OTC 20 MG TAB) Take two tablets daily. 0 MIRTAZAPINE 15 MG TAB Take one(1) tablet daily at bedtime. 30 0 ADVIL 200 MG TAB as necessary 0 No current facility-administered medications for this visit. Review of Systems Review of Systems Constitutional: Positive for unexpected weight change (10 pounds past year). Negative for chills and fever. HENT: Positive for trouble swallowing. Respiratory: Negative for shortness of breath. Cardiovascular: Negative for chest pain, palpitations and leg swelling. Gastrointestinal: Positive for abdominal pain (epigastric), blood in stool, diarrhea, nausea (occasional) and vomiting (occasional). Negative for constipation. Genitourinary: Negative for dysuria and hematuria. Skin: Negative for rash and wound. Neurological: Positive for dizziness (occasionally with position changes). Negative for syncope andlight-headedness. Psychiatric/Behavioral: Negative for self-injury. OBJECTIVE PHYSICAL EXAMINATION: BP 145/86 Pulse 84 Resp 18 Ht 154.9 cm (5' 1) Wt 56.7 kg (125 lb) SpO2 97% BMI 23.62 kg/m Body mass index is 23.62 kg/m . Physical Exam Vitals and nursing note reviewed. Eyes: Pupils: Pupils are equal, round, and reactive to light. Neck: Vascular: No carotid bruit. Cardiovascular: Rate and Rhythm: Normal rate and regular rhythm. Pulses: Normal pulses. Heart sounds: Normal heart sounds. Pulmonary: Effort: Pulmonary effort is normal. Breath sounds: Normal breath sounds. Abdominal: General: Bowel sounds are normal. Musculoskeletal: Right lower leg: No edema. Left lower leg: No edema. Skin: General: Skin is warm and dry. Findings: No erythema or lesion. Neurological: Mental Status: She is alert and oriented to person, place, and time. Psychiatric: Mood and Affect: Mood normal. ADVANCED DIRECTIVES ADVANCED CARE PLANNING: Has Interest in creation of advance directives. Information will be given SURROGATE DECISION MAKERS: Spouse, Gustavo, number on file and verified -Patient provided Advance Directives Packet -Patient would like to be a FULL CODE MENTAL STATUS: 4AT Delirium Test: -Alertness: Normal=0 Mild sleepiness for <10 seconds after waking, then normal=0 Clearly abnormal=4 -Abbreviated Mental Test: Age, , Location, current year(No mistake=0, One mistake=1, Two or more=2) -Attention: Months of the year backwards-(7 or more=0, less than 7=1, intestable=2) -Acute Change: Fluctuation in alertness, cognition, hallucinations over the past 2 weeks (No=0, yes=4) Total: 0 4 or more:possible delirium and/or cognitive impairment 1-3: possible cognitive impairment 0:Delirium or severe cognitive impairment unlikely Discussed possibility of delirium during hospital course DEAR-Delirium Risk Assessment: -Patient age 80 or older: No -Sensory Impairment: -Patient using hearing aid and/or has very low vision: Yes -Functional Dependence: -Patient requires assistance with any: bathing, feeding, dressing, toileting: No -Substance Use: -Consumes >3 drinks of alcohol per week and/or benzodiazapine use >3/week: No -Cognition: -Previous postop delirium or confusion/failed clock drawing: No SCORE: yes= 1 More than 1 Yes indicates patient is at higher risk for developing delirium MiniCog: SCORE: 3/5 A total score of 0, 1, or 2 indicates higher likelihood of clinically important cognitive impairment. A total score of 3, 4, or 5 indicates lower likelihood of dementia but does not rule out some degree of cognitive impairment. 1 point for each word correctly recalled without prompt 2 points for a normal clock or 0 (zero) points for an abnormal clock drawing Clock Drawing: Social History: Limited finances/resources: no Home assistance/caregiver required after surgery: no Currently involved with Case Management/[employer]: no Home environment/homeless/hygiene concerns: no Geriatric Depression Scale (Short Form): On Zoloft 100 mg, Mertazapine 15 mg, Ativan 1 mg PRN. Reports some depression/anxiety, but coping well No data to display PHQ-9 Questionnaire: On Zoloft 100 mg, Mertazapine 15 mg, Paxil 20 mg, Ativan 1 mg PRN. Reports some depression/anxiety, but coping well No data to display (0-4) minimal depression, (5-9) mild depression, (10-14) moderate depression, (15-19) moderately severe depression, (20-27) severe depression WENDY-7 (Anxiety): On Zoloft 100 mg, Mertazapine 15 mg, Ativan 1 mg PRN, Reports some depression/anxiety, but coping well No Data Recorded (0-4) minimal anxiety, (5-9) mild anxiety, (10-14) moderate anxiety, (15-21) severe anxiety Functional Status: Clinical Frailty Scale: -Very Fit- Exercise regularly (1) -Well- Occasionally active (2) -Managing Well- Not regularly active (3) -Vulnerable- Limited activity/tired throughout day/slowed up (4) -Mildly Frail- Help needed with ADLs (finances, medications, transportation) (5) -Moderately Frail- Help with all outside activities and with keeping the house, stairs/bathing/dressing (6) -Severely Frail- Completely dependent for personal care (7) -Very Severely frail- Approaching End of Life (8) -Terminally Ill- Life expectancy < 6 months (9) SCORE: 2 Score 1-3- Walking Program Score 4-6- Referral to Outpatient PT/OT Score 7-9- Referral to Home PT/OT Functional assessment: WNL=Within normal limits Highest Level of Mobility (JH-HLM Scale): Walk: >250 feet =8 25 feet =7 10 steps =6 Stand: 1 minute =5 Chair: Transfer =4 Bed: Sit at edge =3 Turn self =2 Lying =1 Score: 8 Substance Abuse: Denies The Alcohol Use Disorders Identification Test (AUDIT): No data to display The scoring instructions are as follows: Risk Level Intervention AUDIT score Zone I Alcohol Education 0-7 Zone II Simple Advice 8-15 Zone III Simple Advice plus Brief Counseling and Continued Monitoring 16-19 Zone IV Referral to Specialist for Diagnostic Evaluation and Treatment 20-40 SMOKER/TOBACCO USE: Yes -Patient smokes: 45 pack years, now down to half a pack -If yes, was the patient provided with cessation education: Yes -If yes, would the patient like pharmacotherapy to assist in cessation: PCP recent started on Wellbutrin Drug Abuse Screen Test (DAST-10): THC gummie at night for sleep aid No data to display Sleep Apnea STOP BANG Questionnaire 1. Snoring Do you snore loudly (louder than talking or loud enough to be heard through closed doors)? NO 2. Tired Do you often feel tired, fatigued, or sleepy during daytime? NO 3. Observed Has anyone observed you stop breathing during your sleep? NO 4. Blood Pressure Do you have or are you being treated for high blood pressure? NO 5. BMI BMI more than 35 kg/m2? NO 6. Age Age over 50 yr old? YES 7. Neck circumference Neck circumference greater than 40 cm? NO 8. Gender Gender male? NO High risk of NELI: answering yes to three or more items Low risk of NELI: answering yes to less than three items Nutrition: Perioperative Nutrition Score (VIVIANA) BMI <18.5: No BMI <20 if age >65: No Eating less than 50% of normal diet in the preceding week: No Unplanned weight loss >10% in past 6 months: No Albumin Level less than 3: no Albumin Date Value Ref Range Status 11/02/2023 3.9 3.9 - 4.9 g/dL Final Swallow Evaluation ([place] Swallow Protocol): Normal oral mechanical exam: Yes Normal cognition: Yes 3 oz swallow challenge: Pass (drink 3 oz of water with sequential swallows without stopping) -Upper and lower false Dyspnea Assessment (mMRC Dyspnea Scale): -I only get breathless with strenuous exercise 0 -I get SOB when hurrying on level ground or walking up a slight hill 1 -On level ground, I walk slower than people of the same age because of breathlessness, or have to stop for breath when walking at my own pace. 2 -I stop for breath after walking about 100 yards or after a few minutes on level ground 3 -I am too breathless to leave the house or I am breathless when dressing 4 Score: 0 Polypharmacy: Medication list reviewed and reconciled. PDMP web site checked and validated. All prescriptions have been APPROPRIATELY filled and NO suspicious activity was identified. Lizz King APRN.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 November 06, 2023 - Ativan 1 mg PRN -1 Avg LME/day Venous Thromboembolism Risk Assessment: Hx clotting disorder: No Hx PE/DVT: no OAC Use: No ASA use: No Pulmonology: Asthma: no COPD: not diagnosed Hypoventilation syndrome: no Stockfeed Miller: NA Recent exacerbation: No recent PNA or bronchitis CXR 11/02/2023: RESULT: Lines, tubes, and devices: None. Lungs and pleura: No consolidation. No lung mass. No pleural effusion. No pneumothorax. Cardiomediastinal silhouette: Normal cardiomediastinal silhouette. Bones and soft tissues: Severe mid thoracic compression fracture with vertebroplasty. Healed left rib fractures. Multiple additional mild mid thoracic wedge deformities. Diffuse osteopenia Cardiac: Beta Allie use: No Hx of CAD: no Hx of HLD: yes, on statin CHF: no Prior RI: no Hx abnormal EKG: no Hx abnormal heart rhythm: no Valvular heart disease: no Hx endocarditis: no PAD: no PVD: no CVA: no HTN: no Pulmonary HTN: no Hx cardiovascular surgery: no Predictive Maintenance Specialist: NA EKG 11/02/2023: Diagnosis: NORMAL SINUS RHYTHM Confirmed by TANYA LICEA DO ([id number]) on 11/03/2023 8:10:20 AM ECHO 09/09/2002: FINDINGS LEFT VENTRICLE - EF = 60 +/- 5%. The left ventricle appears normal in size. Left ventricular systolic function is normal. Baseline left ventricular diastolic function is consistent with abnormal relaxation(stage 1), appropriate for age RIGHT VENTRICLE - The right ventricle is normal in size and systolic function. LEFT ATRIUM/PULMONARY VEINS - The left atrium is normal. RIGHT ATRIUM/IVC/SVC - The right atrium is normal. MITRAL VALVE - The mitral valve is normal. TRICUSPID VALVE - There is trivial tricuspid regurgitation. Regurgitant velocity is 180.0 cm/s and estimated RV systolic pressure is 17 mm Hg. AORTIC VALVE/LVOT - The aortic valve and left ventriclar outflow tract is structurally normal. PULMONIC VALVE - The pulmonic valve is normal. AORTA - The aorta is normal. PULMONARY ARTERIES - The pulmonary arteries are normal. IAS/IVS - The interatrial and interventricular septa are normal. PERICARDIUM - The pericardium is normal. CONCLUSIONS 1. Normal study for age 2. Visually estimated left ventricular ejection fraction is >60%. ASSESSMENT/PLAN: Sonia Noble is a 78 year old female, who was recently evaluated for surgery. Patient has a h/o anemia, GERD, osteoporosis, thyroid cancer with total thyroidectomy,, diverticulosis, colon cancer with surgery in 2016, smoker. She also has a h/o esophageal dysphagia and a paraesophageal hernia.She is on omeprazole. She had her upper GI series done today. She is scheduled for her esophageal manometry on 11/13/2023. Patient has met with Dr. Mir and surgery is TBD. Vulnerabilities Assessed at Visit: 1.) Smoker: 45 pack year, now down to 0.5 ppd. Recently started on Wellbutrin by PCP. Encouraged complete cessation prior to surgery. Information/resources given. IS given with directions. 2.) Decreased appetite: Albumin 3.9, on Vitamin D supplements, does Boost supplement every other day, encouraged to continue. Aim for 45 grams of protein a day. Impact Advanced Recovery BID 5 days prior to surgery. -Patient would like to be a FULL CODE ACS Surgical Risk Calculator: [id number] - Laparoscopy, surgical, repair of paraesophageal hernia, includes fundoplasty, when performed; with implantation of mesh:5.9% risk of serious complication, 0.3% risk of mortality, 8.2% risk of postop delirium, 34.4% risk of functional decline POLYPHARMACY: -use of ERAS when possible -BEERs Criteria be considered when ordering medications -Medication reconciliation complete prior to discharge to determine need for further use/treatment NUTRITION: VIVIANA score: negative Swallow eval: passed Albumin (g/dL) Date Value 11/02/2023 3.9 -Education provided with reference material given to patient -Impact nutritional supplements given to start 5 days prior to surgery, BID -On Vitamin D 50,000 units weekly x 8 -Make sure to eat source of lean protein at each meal, aim for 45 grams of protein a day -Aim for 2 servings of leafy green vegetables a day -Continue with Boost supplement every other day ANEMIA: No Hematocrit Date Value Ref Range Status 11/02/2023 41.4 36.0 - 46.0 % Final -Hgb 13.0 11/02/2023 -h/o CRISTINO due to colon cancer, had surgery in 2016 CKD: No Creatinine (mg/dL) Date Value 11/02/2023 0.78 -GFR 78 11/02/2023 -Reviewed with the patient the importance of hydration pre/postoperatively. -Aim for 64 ounces of fluid a day DIABETES: No No results found for: HBA1C, GLUCFAST -BG 91 11/02/2023 MOBILITY: -Frailty score: 2=walking program -Pedometer: increase your steps by 100 every couple of days, goal is 1,500 steps per day over baseline COGNITION: -4AT: 0= Delirium or severe cognitive impairment unlikely -MiniCo/5 score: lower likelihood of dementia -DEAR Assessment: 1= indicates patient is at lower risk for developing delirium -Patient should bring all sensory aids with them DOS, glasses and hearing aids -Delirium assessments to be performed per protocol during hospital course -Discussed risk of delirium during hospital course -HCPOA, Spouse, Gustavo -Advanced Directives packet given -Patient would like to be a FULL CODE PSYCHOSOCIAL: -Educational material given to patient for stress reduction/management -Refer to Jig [employer]/Social work/Psych, does not want at this time -On Zoloft 100 mg, Mertazapine 15 mg, Ativan 1 mg PRN -Reports some depression/anxiety, but coping well CARDIAC: -Denies any cardiac symptoms -Reports METs >5 -EKG NSR 10/2023 -Continue use of statin during preoperative time as scheduled VENOUS THROMBOEMBOLISM RISK ASSESSMENT: -Surgeon to determine prophylaxis regimen PULMONOLOGY: -Stop BANG: low risk for NELI -Dyspnea Scale: denies any SOBE or CP -Start IS, instructions reviewed -Recommend IS using 10 times an hour while awake during hospital course -Medications prescribed for smoking cessation, PCP recently started her on Wellbutrin -Tobacco cessation encouraged, counseling was given about the harmful effects of tobacco use -45 pack years, now down to half a pack -The function of the surgery optimization clinic is to optimize modifiable risk factors prior to surgery. This clinic does not provide medical clearance for surgery. As always, the decision whether or not to proceed with surgery should be based on an evaluation of the risks versus benefits of the procedure, and should be made between the patient in the surgeon. -A letter and copy of this encounter was sent to referring surgeon and the patient's primary care provider. -Surgery optimization clinic RN will follow up with patient on areas addressed for optimization. I spent a total of 90 minutes on the date of the service which included preparing to see the patient, [id number] patient care, completing clinical documentation, obtaining and/or reviewing separately obtained history, performing a medically appropriate examination, counseling and educating the pat ient/family/caregiver, communicating with other HCPs (not separately reported), and independently interpreting results (not separately reported). ELECTRONICALLY SIGNED AND DATED BY: Lizz King APRN, KALEIGH [facility] documented in this encounterMer[facility]-30-[facility]24 NoteHNO ID: [id number] Author: LIZZ KING APRN.KALEIGH Service: ? Author Type: Nurse Practitioner Type: Progress Notes Filed: 11/10/2023 16:04 Note Text: Summary: GSV Lizz King APRN.KALEIGH Surgery Optimization Clinic ([facility]) [facility], [facility] [address] [id number] Patient: Sonia Noble Date of : 1945 Subjective Scheduled OR Date: TBD Surgeon: Dr. Mir PCP: No primary care provider on file. DIAGNOSES: Esophageal dysphagia, paraesophageal hernia PLANNED PROCEDURE: Paraesophageal hernia repair HPI Sonia Noble is a 78 year old female, who was recently evaluated for surgery and has elected to proceed with the above mentioned surgical intervention. Patient has a h/o anemia, GERD, osteoporosis, thyroid cancer with total thyroidectomy,, diverticulosis, colon cancer with surgery in 2016, smoker. She also has a h/o esophageal dysphagia and a paraesophageal hernia. She is on omeprazole. She had her upper GI series done today. She is scheduled for her esophageal manometry on 11/13/2023. Patient has met with Dr. Mir and surgery is TBD. Patient reports she has frequent heartburn. She also takes Mylanta and has also found that taking peanut butter helps ease symptoms. She also has occasional nausea and vomiting, decreased appetite and occasional epigastric pain which improves with she removes her bra. She also states that she had about a 10 pound weight loss in the past year. She has frequent diarrhea since her colon cancer surgery in 2016. She denies any constipation or blood in the stool. Denies any CP, SOBE, syncope, or falls. Denies any recent fevers or chills. Patient lives with: Spouse, Gustavo Overall Health Goal (Patient's own words, I.e. I just want to feel better): Feel better Treatment Goal (What do you hope surgery will accomplish?): Repair my hernia Does patient want another office visit to discuss any surgical decision-making issues AGAIN prior to surgery? Yes, will meet again after testing is done PAST MEDICAL HISTORY PAST MEDICAL HISTORY Diagnosis Date Anemia Colon cancer (HCC) 12/31/2015 Diverticulitis of colon (without mention of hemorrhage)(562.11) Esophageal reflux Family history of malignant neoplasm of gastrointestinal tract Fracture of pelvis (HCC) Heart burn High risk bisexual behavior Iron deficiency anemia, unspecified Mental disorder depression Osteoporosis PONV (postoperative nausea and vomiting) Reticulosarcoma of lymph nodes of head, face, and neck (HCC) Snoring Thyroid ca (HCC) FAMILY HISTORY FAMILY HISTORY Problem Relation Age of Onset Colon Cancer Father Heart Mother Cancer Brother Exposed to agent orange Cancer Maternal Grandmother Ovarian ca/goiter Prostate Cancer Maternal Grandfather Headache Sister Migraines Thyroid Sister PAST SURGICAL HISTORY PAST MEDICAL HISTORY Diagnosis Date Anemia Colon cancer (HCC) 12/31/2015 Diverticulitis of colon (without mention of hemorrhage)(562.11) Esophageal reflux Family history of malignant neoplasm of gastrointestinal tract Fracture of pelvis (HCC) Heart burn High risk bisexual behavior Iron deficiency anemia, unspecified Mental disorder depression Osteoporosis PONV (postoperative nausea and vomiting) Reticulosarcoma of lymph nodes of head, face, and neck (HCC) Snoring Thyroid ca (HCC) ALLERGIES ALLERGIES Allergen Reactions Darvocet A500 [Prop* GI Upset, Vomiting Darvon [Propoxyphen* GI Upset Sulfa (Sulfonamide * Hives, GI Upset, Vomiting MEDICATIONS Current Outpatient Medications Medication Sig Dispense Refill buPROPion XL (WELLBUTRIN XL) 150 mg 24 hr tablet Take 150 mg by mouth once daily. pravastatin (PRAVACHOL) 10 mg tablet Take 10 mg by mouth once daily. sertraline (ZOLOFT) 100 mg tablet Take 100 mg by mouth once daily. meloxicam (MOBIC) 15 mg tablet Take 15 mg by mouth once daily. CALCIUM CARBONATE/VITAMIN D3 (CALCIUM + D ORAL) Take by mouth. LORazepam (ATIVAN) 1 mg tablet Take 1 tablet by mouth daily at bedtime. VITAMIN B COMPLEX (B-COMPLEX ORAL) Take by mouth. levothyroxine (LEVOXYL) 125 mcg ORAL tablet Take 100 mcg by mouth once daily. multivitamin ORAL tablet Take 2 tablets by mouth once daily. omeprazole magnesium(PRILOSEC OTC 20 MG TAB) Take two tablets daily. 0 MIRTAZAPINE 15 MG TAB Take one(1) tablet daily at bedtime. 30 0 ADVIL 200 MG TAB as necessary 0 No current facility-administered medications for this visit. Review of Systems Review of Systems Constitutional: Positive for unexpected weight change (10 pounds past year). Negative for chills and fever. HENT: Positive for trouble swallowing. Respiratory: Negative for shortness of breath. Cardiovascular: Negative for chest pain, pa (more content not included)...[facility]07-30-2024 History of Present illness Narrative* Drew Yung RT(R) - 11/10/2023 1:30 PM EDT Radiology Service Progress Note PATIENT NAME: Sonia Noble DATE OF SERVICE: November 10, 2023 TIME: 1:38 PM PATIENT IDENTITY VERIFICATION COMPLETED USING TWO (2) IDENTIFIERS: Name and Date of confirmedby patient verbally. FALL SCREENING: Has the patient had 2 falls in the last year or 1 fall with injury or currently using an Ambulatory Assistive Device (Walker, Cane, Wheelchair, Crutches, etc.)? No PATIENT GENDER DATA: Female. status: : No status: NO. PATIENT RELEVANT IMPLANT DATA REVIEWED: Not Applicable PATIENT PRESENTS WITH AN IMPLANTABLE OR ATTACHED CERTIFIED ART THERAPIST: No RADIOLOGY DEPARTMENT: General X-ray: Exam(s) Completed: GI/ Procedure(s): Upper GI with barium contrast PERIPHERAL IV DATA: Not applicable SIGNED BY: RT Jose Alejandro(Marlene) November 10, 2023 1:38 PM documented in this encounterMercy [facility]07-30-2024 NoteHNO ID: [id number] Author: DREW YUNG RT(Marlene) Service: Radiology Author Type: Technologist Type: Progress Notes Filed: 11/10/2023 13:38 Note Text: Radiology Service Progress Note PATIENT NAME: Sonia Noble DATE OF SERVICE: November 10, 2023 TIME: 1:38 PM PATIENT IDENTITY VERIFICATION COMPLETED USING TWO (2) IDENTIFIERS: Name and Date of confirmed by patient verbally. FALL SCREENING: Has the patient had 2 falls in the last year or 1 fall with injury or currently using an Ambulatory Assistive Device (Walker, Cane, Wheelchair, Crutches, etc.)? No PATIENT GENDER DATA: Female. status: : No status: NO. PATIENT RELEVANT IMPLANT DATA REVIEWED: Not Applicable PATIENT PRESENTS WITH AN IMPLANTABLE OR ATTACHED CERTIFIED ART THERAPIST: No RADIOLOGY DEPARTMENT: General X-ray: Exam(s) Completed: GI/ Procedure(s): Upper GI with barium contrast PERIPHERAL IV DATA: Not applicable SIGNED BY: RT Jose Alejandro(R) November 10, 2023 1:38 [facility]07-26-2024 Instructions* Patient Instructions* Lizz King APRN.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 - 11/06/2023 12:42 PM EDT Incentive Spirometer: -Start with breathing exercise today, goal 30-40 breaths a day *Incentive spirometer is used to help with lung expansion post operatively. It can be of benefit preoperatively to for those who smoke or have lung disease. Use the spirometer as instructed during your hospital visit. Take 10 deep breaths, hold for one second and then slowly exhale. You can take cleansing breaths in between as needed to avoid feeling dizzy or lightheaded. Use the spirometer hourly if possible. You will continue with this postoperatively. Pedometer: -Pedometer to monitor your steps starting today -For the first 3 days monitor your average daily steps to get your baseline number -Then increase your steps by 200-300 every couple of days as able -Goal is to increase mobility as much as possible prior to surgery * Research has shown that increased strength, mobility and function preoperatively will help you torecover with less complication. Your effort preoperatively will yield better results postoperatively Stress Relief: -Deep breathing exercises -Sleep: 6-8 hours of sleep each night -Meditate -Laughing -Walking -Positive self-talk -Finding a support system -Exercise, walking, being active Nutrition: -Make sure you are getting enough protein a day, with a goal of at least 1 high- protein food with each of your three meals a day -High protein sources include: chicken breast, lean beef, salmon, tofu, peanut butter, eggs, finnish yogurt, cottage cheese, black beans, lentils -Make sure you are including high calcium foods, at least 3 servings a day: low- fat dairy, dark-leafy greens, sardines, or calcium-fortified cereals -Make sure you are getting vitamins and minerals by including at least four servings of fruits/vegetables a day - Drink 2 shakes daily for 5 days leading up to the day of surgery. *It has been shown through research that boosting the nutritional intake preoperatively with calories, vitamins and minerals, and hydration, promotes early recovery and improved healing postoperatively. You have been provided a case of supplement to take. Advanced Directives: Advanced directives are your preferences and personal requests in the event you are unable to make decisions for yourself following surgery. It is important for you to discuss your wishes with your family. It is requested that a single family member be designated as your power of attorney law clerk in the event you cannot speak for yourself. This person should know what you would prefer as your medical choices if you were not compromised. This person, family or friend, should know what you prefer for your medical care and decisions if you are unable to make those decisions for yourself. Notify your surgeon s office to update your records with the designated Durable Power of Painter Set. -A great web site for information: www.prepareforyourcare.org Sensory Aids: -If you have any sensory aids, such as hearing aids, or glasses, please bring these with you day ofsurgery -Encouraged to bring sleep hygiene items such as ear plugs and eye mask for more restful sleep during hospital stay - Information sheet on Delirium given to patient Sleep Apnea: If you have a CPAP machine, please bring that with you day of surgery. Smoking Cessation: -Quit smoking or vaping -Goal is to be abstinent from smoking prior to surgery, the sooner you quit, the less risk of post-op complications -Handout given on importance of smoking cessation -Resourceful web site: www.quitforsurFinestrella.com - [facility] smoke cessation resources: 1(322)-QUIT-NOW documented in this encounterMercy [facility]07-22-2024 History of Present illness Narrative* Leandro Boyle RT(R) - 11/02/2023 11:20 AM EDT Radiology Service Progress Note PATIENT NAME: Sonia Noble DATE OF SERVICE: November 02, 2023 TIME: 10:47 AM PATIENT IDENTITY VERIFICATION COMPLETED USING TWO (2) IDENTIFIERS: Name and Date of confirmedby patient verbally. FALL SCREENING: Has the patient had 2 falls in the last year or 1 fall with injury or currently using an Ambulatory Assistive Device (Walker, Cane, Wheelchair, Crutches, etc.)? No PATIENT GENDER DATA: Female. status: : No status: NO. PATIENT RELEVANT IMPLANT DATA REVIEWED: Yes PATIENT PRESENTS WITH AN IMPLANTABLE OR ATTACHED CERTIFIED ART THERAPIST: No RADIOLOGY DEPARTMENT: General X-ray: Exam(s) Completed: Chest X-Ray PERIPHERAL IV DATA: Not applicable SIGNED BY: BLADIMIR Burkett) November 02, 2023 10:47 AM documented in this encounterMercy Health [facility]07-22-2024 NoteHNO ID: [id number] Author: LEANDRO BOYLE RT(R) Service: Radiology Author Type: Technologist Type: Progress Notes Filed: 11/02/2023 10:54 Note Text: Radiology Service Progress Note PATIENT NAME: Sonia Noble DATE OF SERVICE: November 02, 2023 TIME: 10:47 AM PATIENT IDENTITY VERIFICATION COMPLETED USING TWO (2) IDENTIFIERS: Name and Date of confirmed by patient verbally. FALL SCREENING: Has the patient had 2 falls in the last year or 1 fall with injury or currently using an Ambulatory Assistive Device (Walker, Cane, Wheelchair, Crutches, etc.)? No PATIENT GENDER DATA: Female. status: : No status: NO. PATIENT RELEVANT IMPLANT DATA REVIEWED: Yes PATIENT PRESENTS WITH AN IMPLANTABLE OR ATTACHED CERTIFIED ART THERAPIST: No RADIOLOGY DEPARTMENT: General X-ray: Exam(s) Completed: Chest X-Ray PERIPHERAL IV DATA: Not applicable SIGNED BY: RT Madelaine(R) November 02, 2023 10:47 [facility]07-22-2024 NoteHNO ID: [id number] Author: CLAUDIA DO LPN Service: ? Author Type: LICENSED NURSE Type: Progress Notes Filed: 11/02/2023 10:35 Note Text: Patient presents for EKG per Dr Mir. Denies any problems at this time. Tolerated procedure well. Claudia Do LPProMedica Fostoria [facility]07-[facility] History of Present illness Narrative* Claudia Do LPN - 11/02/2023 10:32 AM EDT Patient presents for EKG per Dr Mir. Denies any problems at this time. Tolerated procedure well. Claudia Do LPN documented in this encounterMercy Health [facility]07-18-2024 Telephone encounter Note * Telephone Encounter - Brady Junior RN - 10/29/2023 10:48 AM EDT Patient given written information about esophageal manometry and the prep instructions in the office on 10/28/23. I called her today and verbally discussed and reviewed the information with the patient. All of patient's questions were answered. Patient has my contact info if she has any questions. Brady Junior RN [facility]07-18-2024 Miscellaneous Notes* Telephone Encounter - Brady Junior RN - 10/29/2023 10:48 AM EDT Patient given written information about esophageal manometry and the prep instructions in the office on 10/28/23. I called her today and verbally discussed and reviewed the information with the patient. All of patient's questions were answered. Patient has my contact info if she has any questions. Brady Junior RN documented in this encounterMercy Health [facility]07-17-2024 Telephone encounter Note * Telephone Encounter - Lety Meraz LPN - 10/28/2023 9:48 AM EDT Manometry scheduled for 11/06/2023 at 900am. Prep/instructions given to patient at checkout. Lety Meraz LPN [facility] Work Phone: 1(801) 565-803007-17-2024 Miscellaneous Notes* Telephone Encounter - Lety Meraz LPN - 10/28/2023 9:48 AM EDT Manometry scheduled for 11/06/2023 at 900am. Prep/instructions given to patient at checkout. Lety Meraz LPN documented in this encounterMercy Health [facility]07-17-2024 Note* Addendum Note - Lety Meraz LPN - 10/28/2023 9:34 AM EDTAddended by: LETY MERAZ on: 10/28/2023 09:34 AM Modules accepted: Orders [facility] Work Phone: 1(564) 714-337607-17-2024 Miscellaneous Notes* Addendum Note - Lety Meraz LPN - 10/28/2023 9:34 AM EDTAddended by: LETY MERAZ on: 10/28/2023 09:34 AM Modules accepted: Orders documented in this encounterMercy Health [facility]07-17-2024 NoteHNO ID: [id number] Author: CHASITY MIR MD Service: ? Author Type: Physician Type: Progress Notes Filed: 10/28/2023 09:13 Note Text: SURGICAL SERVICES HISTORY AND PHYSICAL EXAMINATION SERVICE DATE: 10/28/2023 SERVICE TIME: 8:47 AM PRIMARY CARE PHYSICIAN: No primary care provider on file. SUBJECTIVE CHIEF COMPLAINT: hernia HISTORY OF PRESENT ILLNESS: Ms. Noble is a 78 year old female with a PMH of anemia, HLD, colon cancer (s/p partial colectomy 2010), GERD, depression, osteoporosis, hx of thyroid CA (s/p total thyroidectomy) who presents for surgical consultation. Surgical consultation was requested by the patient's referring physician, Dr. Gareth Steven. A copy of this consultation note will be provided to the requesting physician(s) by way of shared medical record or letter via US mail. The patient states that she has been having issues with heartburn for greater than one year. She has been taking Omeprazole 40 mg BID and still has breakthrough symptoms. Symptoms are most severe at night. She experiences food and acid regurgitation nearly daily. She endorses some difficulty swallowing and is noticing increased need to drink water when she eats. She has lost 10 pounds in the last one year. She also uses Mylanta - goes through a bottle every two weeks. She uses rare NSAIDs for pain and headaches - she cannot recall the last time she took these medications. She denies any personal history of DM, RI/CAD, CVA/TIA or any other medical conditions aside from listed above. She has a history of colon CA and underwent partial colectomy and undergoes colonoscopy every 5 years. As a result of the surgery she has occasional diarrhea Workup: - EGD (Dr. Steven 07/31/23): large hiatal hernia - CT abd/pelvis (04/2011): A triangular density previously seen along the left heart border has resolved since the prior study in December. There is focal thickening of the right abdominal wall which is stable, probably representing postsurgical change. CT scans of the chest, abdomen, and pelvis show no significant interval change otherwise. - CT chest (04/2011): A triangular density previously seen along the left heart border has resolved since the prior study in December. There is focal thickening of the right abdominal wall which is stable, probably representing postsurgical change. CT scans of the chest, abdomen, and pelvis show no significant interval change otherwise. Social: current 1 ppd smoker; rare etoh use; denies use of illicit drugs aside from CBD gummy at HS to help her sleep PSHx: TANDA, open CANDIS, lap CCx, total thyroidectomy, open colectomy (2010; Dr. Zuniga) PAST MEDICAL HISTORY: PAST MEDICAL HISTORY Diagnosis Date Anemia Colon cancer (HCC) 12/31/2015 Diverticulitis of colon (without mention of hemorrhage)(562.11) Esophageal reflux Family history of malignant neoplasm of gastrointestinal tract Fracture of pelvis (HCC) Heart burn High risk bisexual behavior Iron deficiency anemia, unspecified Mental disorder depression Osteoporosis Reticulosarcoma of lymph nodes of head, face, and neck (HCC) Snoring Thyroid ca (HCC) PAST SURGICAL HISTORY: PAST SURGICAL HISTORY Procedure Laterality Date ADENOIDECTOMY PRIMARY Adenoidectomy ANES IPER LOWER ABD W/LAPS RAD HYSTERECTOMY COLONOSCOPY FLX DX W/COLLJ SPEC WHEN PFRMD [id number] repeat 1 year COLONOSCOPY W/BIOPSY SINGLE/MULTIPLE 09/16/10 with direct submucosal injection COLSC FLX W/REMOVAL LESION BY HOT BX FORCEPS 12/31/2015 COLSC FLX W/RMVL OF TUMOR POLYP LESION SNARE TQ 01/03/13 EGD TRANSORAL BIOPSY SINGLE/MULTIPLE 09/16/10 EGD TRANSORAL BIOPSY SINGLE/MULTIPLE 12/31/2015 LAP HAO W EXPLORATION OF CD THYROIDECTOMY TOTAL/COMPLETE TONSILLECTOMY PRIMARY/SECONDARY Tonsillectomy alone FAMILY HISTORY: FAMILY HISTORY Problem Relation Age of Onset Colon Cancer Father Heart Mother Cancer Brother Exposed to agent orange Cancer Maternal Grandmother Ovarian ca/goiter Prostate Cancer Maternal Grandfather Headache Sister Migraines Thyroid Sister SOCIAL HISTORY: Social History Tobacco Use Smoking status: Every Day Packs/day: 0.50 Years: 19.00 Additional pack years: 0.00 Total pack years: 9.50 Types: Cigarettes Start date: 11/26/1995 Smokeless tobacco: Never Tobacco comments: Pt has cut back to 1/2 pack daily. Substance Use Topics Alcohol use: Yes Comment: occasional Drug use: No MEDICATIONS: Current Outpatient Medications Medication Sig pravastatin (PRAVACHOL) 10 mg tablet Take 10 mg by mouth once daily. sertraline (ZOLOFT) 100 mg tablet Take 100 mg by mouth once daily. meloxicam (MOBIC) 15 mg tablet Take 15 mg by mouth once daily. CALCIUM CARBONATE/VITAMIN D3 (CALCIUM + D ORAL) Take by mouth. LORazepam (ATIVAN) 1 mg tablet Take 1 tablet by mouth daily at bedtime. levothyroxine (LEVOXYL) 125 mcg ORAL tablet Take 125 mcg by mouth once daily. (more content not included)...[facility]07-17-2024 History of Present illness Narrative* Chasity Mir MD - 10/28/2023 8:47 AM EDT SURGICAL SERVICES HISTORY AND PHYSICAL EXAMINATION SERVICE DATE: 10/28/2023 SERVICE TIME: 8:47 AM PRIMARY CARE PHYSICIAN: No primary care provider on file. SUBJECTIVE CHIEF COMPLAINT: hernia HISTORY OF PRESENT ILLNESS: Ms. Noble is a 78 year old female with a PMH of anemia, HLD, colon cancer (s/p partial colectomy 2010), GERD, depression, osteoporosis, hx of thyroid CA (s/p total thyroidectomy) who presents for surgical consultation. Surgical consultation was requested by the patient's referring physician, Dr. Gareth Steven. A copy of this consultation note will be provided to the requesting physician(s) by way of shared medical record or letter via US mail. The patient states that she has been having issues with heartburn for greater than one year. She has been taking Omeprazole 40 mg BID and still has breakthrough symptoms. Symptoms are most severe at night. She experiences food and acid regurgitation nearly daily. She endorses some difficulty swallowing and is noticing increased need to drink water when she eats. She has lost 10 pounds in the lastone year. She also uses Mylanta - goes through a bottle every two weeks. She uses rare NSAIDs for pain and headaches - she cannot recall the last time she took these medications. She denies any personal history of DM, RI/CAD, CVA/TIA or any other medical conditions aside from listed above. She has a history of colon CA and underwent partial colectomy and undergoes colonoscopy every 5 years. As a result of the surgery she has occasional diarrhea Workup: - EGD (Dr. Steven 07/31/23): large hiatal hernia - CT abd/pelvis (04/2011): A triangular density previously seen along the left heart border has resolved since the prior study in December. There is focal thickening of the right abdominal wall which is stable, probably representing postsurgical change. CT scans of the chest, abdomen, and pelvis show no significant interval change otherwise. - CT chest (04/2011): A triangular density previously seen along the left heart border has resolved since the prior study in December. There is focal thickening of the right abdominal wall which is stable, probably representing postsurgical change. CT scans of the chest, abdomen, and pelvis show no significant interval change otherwise. Social: current 1 ppd smoker; rare etoh use; denies use of illicit drugs aside from CBD gummy at HSto help her sleep PSHx: T&A, open CANDIS, lap CCx, total thyroidectomy, open colectomy (2010; Dr. Zuniga) PAST MEDICAL HISTORY: PAST MEDICAL HISTORY Diagnosis Date Anemia Colon cancer (HCC) 12/31/2015 Diverticulitis of colon (without mention of hemorrhage)(562.11) Esophageal reflux Family history of malignant neoplasm of gastrointestinal tract Fracture of pelvis (HCC) Heart burn High risk bisexual behavior Iron deficiency anemia, unspecified Mental disorder depression Osteoporosis Reticulosarcoma of lymph nodes of head, face, and neck (HCC) Snoring Thyroid ca (HCC) PAST SURGICAL HISTORY: PAST SURGICAL HISTORY Procedure Laterality Date ADENOIDECTOMY PRIMARY <AGE 12 Adenoidectomy ANES IPER LOWER ABD W/LAPS RAD HYSTERECTOMY COLONOSCOPY FLX DX W/COLLJ SPEC WHEN PFRMD [id number] repeat 1 year COLONOSCOPY W/BIOPSY SINGLE/MULTIPLE 09/16/10 with direct submucosal injection COLSC FLX W/REMOVAL LESION BY HOT BX FORCEPS 12/31/2015 COLSC FLX W/RMVL OF TUMOR POLYP LESION SNARE TQ 01/03/13 EGD TRANSORAL BIOPSY SINGLE/MULTIPLE 09/16/10 EGD TRANSORAL BIOPSY SINGLE/MULTIPLE 12/31/2015 LAP HAO W EXPLORATION OF CD THYROIDECTOMY TOTAL/COMPLETE TONSILLECTOMY PRIMARY/SECONDARY <AGE 12 Tonsillectomy alone FAMILY HISTORY: FAMILY HISTORY Problem Relation Age of Onset Colon Cancer Father Heart Mother Cancer Brother Exposed to agent orange Cancer Maternal Grandmother Ovarian ca/goiter Prostate Cancer Maternal Grandfather Headache Sister Migraines Thyroid Sister SOCIAL HISTORY: Social History Tobacco Use Smoking status: Every Day Packs/day: 0.50 Years: 19.00 Additional pack years: 0.00 Total pack years: 9.50 Types: Cigarettes Start date: 11/26/1995 Smokeless tobacco: Never Tobacco comments: Pt has cut back to 1/2 pack daily. Substance Use Topics Alcohol use: Yes Comment: occasional Drug use: No MEDICATIONS: Current Outpatient Medications Medication Sig pravastatin (PRAVACHOL) 10 mg tablet Take 10 mg by mouth once daily. sertraline (ZOLOFT) 100 mg tablet Take 100 mg by mouth once daily. meloxicam (MOBIC) 15 mg tablet Take 15 mg by mouth once daily. CALCIUM CARBONATE/VITAMIN D3 (CALCIUM + D ORAL) Take by mouth. LORazepam (ATIVAN) 1 mg tablet Take 1 tablet by mouth daily at bedtime. levothyroxine (LEVOXYL) 125 mcg ORAL tablet Take 125 mcg by mouth once daily. multivitamin ORAL tablet Take 2 tablets by mouth once daily. omeprazole magnesium(PRILOSEC OTC 20 MG TAB) Take two tablets daily. ADVIL 200 MG TAB as necessary VITAMIN B COMPLEX (B-COMPLEX ORAL) Take by mouth. (Patient not taking: Reported on 10/28/2023) MIRTAZAPINE 15 MG TAB Take one(1) tablet daily at bedtime. (Patient not taking: Reported on 10/28/2023) PAXIL 20 MG TAB Take one(1) tablet daily. (Patient not taking: Reported on 10/28/2023) No current facility-administered medications for this visit. ALLERGIES: ALLERGIES Allergen Reactions Darvocet A500 [Prop* GI Upset, Vomiting Darvon [Propoxyphen* GI Upset Sulfa (Sulfonamide * Hives, GI Upset, Vomiting COMPLETE REVIEW OF SYSTEMS: Review of Systems Constitutional: Negative for chills, diaphoresis, fever and malaise/fatigue. HENT: Negative for congestion, hearing loss, nosebleeds, sinus pain, sore throat and tinnitus. Eyes: Negative for blurred vision, double vision, pain and redness. Respiratory: Negative for cough, hemoptysis, sputum production, shortness of breath and wheezing. Cardiovascular: Positive for leg swelling (chronic left leg swelling). Negative for chest pain, palpitations, orthopnea and PND. Gastrointestinal: Positive for diarrhea (occasional), heartburn and vomiting (regurgitation). Negative for abdominal pain, blood in stool, constipation and nausea. Genitourinary: Negative for dysuria, frequency, hematuria and urgency. Musculoskeletal: Positive for back pain. Negative for falls, joint pain, myalgias and neck pain. Skin: Negative for itching and rash. Neurological: Negative for dizziness, speech change, focal weakness, seizures, loss of consciousness, weakness and headaches. Endo/Heme/Allergies: Does not bruise/bleed easily. Psychiatric/Behavioral: Positive for depression. Negative for hallucinations, memory loss, substance abuse and suicidal ideas. The patient is not nervous/anxious and does not have insomnia. OBJECTIVE PHYSICAL EXAM: BP 106/61 Pulse 87 Ht 5' 1 (1.55m) Wt 124 lb 9.6 oz (56.5kg) SpO2 97% BMI 23.56 kg/(m^2). Physical Exam Vitals reviewed. Constitutional: Appearance: Normal appearance. HENT: Head: Normocephalic and atraumatic. Nose: Nose normal. Eyes: General: No scleral icterus. Extraocular Movements: Extraocular movements intact. Conjunctiva/sclera: Conjunctivae normal. Pupils: Pupils are equal, round, and reactive to light. Cardiovascular: Rate and Rhythm: Normal rate. Pulmonary: Effort: Pulmonary effort is normal. No respiratory distress. Skin: General: Skin is warm and dry. Coloration: Skin is not jaundiced or pale. Neurological: Mental Status: She is alert and oriented to person, place, and time. Psychiatric: Mood and Affect: Mood normal. Behavior: Behavior normal. DATA: Diagnostic tests reviewed for today's visit: EMR reviewed Plan ASSESSMENT AND PLAN Sonia Noble is a 78 year old female with a PMH as noted above who presents with a symptomatic paraesophageal hernia. 1. Paraesophageal hernia - ICD9: 553.3, ICD10: K44.9 (primary diagnosis) - She has a symptomatic paraesophageal hernia. Will obtain further workup prior to surgery - will obtain UGI, manometry, CXR, EKG, labs, and she will need negative nicotine test. - Will have her see surgical optimization clinic - XR UPPER GI ROUTINE DOUBLE CONTRAST/AIR - XR CHEST 2V FRONTAL/LAT - ECG COMPLETE - COMPLETE BLOOD COUNT AND DIFFERENTIAL - COMPREHENSIVE METABOLIC PANEL - CONSULT TO [facility] 2. Gastroesophageal reflux disease without esophagitis - ICD9: 530.81, ICD10: K21.9 - Discussed lifestyle modifications including losing weight, limiting caffeine, no meals three hours before sleep, and head of bed elevation - Continue treatment with Omeprazole 40 mg BID - Setup for Upper GI Series with Follow Through - XR UPPER GI ROUTINE DOUBLE CONTRAST/AIR - CONSULT TO [facility] 3. Tobacco use disorder - ICD9: 305.1, ICD10: F17.200 - Cessation encouraged. - Physiologic and physical aspects of tobacco addiction as well as strategies for quitting were discussed. - Counseling was given focusing on the harmful effects of this addiction especially given the patient's medical condition(s) which will be worsened because of the chemicals in tobacco. - Counseling was given 4 minutes. - Recommended to called 1-800-QUIT NOW 4. Esophageal dysphagia - ICD9: 787.29, ICD10: R13.19 - MANOMETRY ESOPHAGEAL 5. Hyperlipidemia, unspecified hyperlipidemia type - ICD9: 272.4, ICD10: E78.5 - Continue current medical management 6. Depression, unspecified depression type - ICD9: 311, ICD10: F32.A - Continue current medical management Medical Decision Making: Problems: Moderate: 2+ stable chronic illnesses and New problem with uncertain prognosis Data: Unique test result(s) reviewed: 3+ Unique test(s) ordered: 3+ Discussed management or test w/ external physician/QHCP/source Risk: Moderate: Drug management Medical Decision Making Level: 4 - Moderate SIGNATURE: Chasity Mir MD PATIENT NAME: Sonia Noble DATE: October 28, 2023 TIME: 8:47 AM PAGER/CONTACT #: [id number] [facility] History and physical note Author Ervin Darling [facility] August 06, 2023 1:04pm Note Date/Time August 06, 2023 11: 48am [facility] [address] [place] [address] H&P Exam - Wound Care 08/06/23 1148 MR#: [id number] Acct: [id number] Name: SONIA NOBLE Rep #:[id number] 09 : 1945 78 From: Ervin cortez MD PCP: Dr. Zuly Blas, DO Status:REG RCR Location: History of Present Illness Date of Service: 08/06/23 Chief Complaint: No healing Left Leg Wound History of Wound: Ms. Noble is a 78-year-old who was referred here due to nonhealing left leg wound. Believes this started about 2 weeks ago. Not reallysure about how it started but thinks she may have been scratched by her cat. Was seen at the urgent care and initially put on Augmentin however, due to nonhealing she represented. Following cleaning of the wound, cultures were taken. Also switched from Augmentin to metronidazole and doxycycline. She reports drainage. Has been applying bacitracin twice daily. No known history of diabetes. History of venous insufficiency status post procedure to her left lower extremity, has not been using her compression stockings. Smokes. Has nothad any recent labs done. No chills, fever or otherwise feeling of unwell reported. [facility] Medical History (Updated 08/06/23 @ 12:[address] Ervin Darling MD) Arthritis Back problem Cat bite of left lower leg COPD (chronic obstructive pulmonary disease) Depression with anxiety Diarrhea GERD (gastroesophageal reflux disease) History of back problems History of colon cancer History of thyroid cancer Loss of hearing Open wound Puncture wound of left leg excluding thigh Smoking hx Tobacco abuse Venous (peripheral) insufficiency Wears dentures Wears hearing aid Home Medications lorazepam 1 mg tablet 1 mg PO QHS 06/11/13 [History Last Taken 06/11/13 1 mg] omeprazole 20 mg capsule,delayed release 40 mg PO BID GERD 06/11/13 [History Last Taken 07/31/23 06:30] meloxicam 15 mg tablet 15 mg PO DAILY 06/12/13 [History Last Taken 06/12/13 15 mg] cholecalciferol (vitamin D3) 1,250 mcg (50,000 unit) capsule 50,000 units PO QWEEK 01/24/19 [History Last Taken Unknown] pravastatin 10 mg tablet 10 mg PO QHS 01/24/19 [History Last Taken Unknown] liothyronine 5 mcg tablet 5 mcg PO DAILY 07/09/23 [History Last Taken Unknown] sertraline 100 mg tablet 150 mg PO DAILY 07/09/23 [History Last Taken Unknown] amoxicillin 875 mg-potassium clavulanate 125 mg tablet 1 tab PO BID #20 tabs 07/27/23 [Rx Last Taken Unknown] levothyroxine 100 mcg tablet 100 mcg PO DAILY 07/28/23 [History Last Taken 07/31/23 06:30] mirtazapine 45 mg tablet 45 mg PO QHS 07/28/23 [History Last Taken Unknown] doxycycline monohydrate 100 mg capsule 100 mg PO BID #20 caps 08/05/23 [Rx Last Taken Unknown] metronidazole 500 mg tablet 500 mg PO TID #30 tabs 08/05/23 [Rx Last Taken Unknown] Allergy/AdvReac Type Severity Reaction Status Date / Time Sulfa (Sulfonamide Allergy Rash Verified 08/05/23 11:36 Antibiotics) Family History Father Colon cancer Mother Heart disease Osteoporosis Surgical History History of colectomy History of hysterectomy History of partial thyroidectomy Social History Smoking Status: Current every day smoker tobacco type: cigarettes alcohol intake: never substance use type: does not use ROS Constitutional Constitutional: Reports poor appetite; Denies excessive sweating, fatigue, fever(s), headache(s), increased appetite or lethargy Eyes Eyes: Denies blindness, bloody eye, burning, change in eye color, discharge fromeye(s), erythema or excessive blinking ENT HEENT: Denies dysphagia, epistaxis, headache(s), hearing loss, hoarseness, lip swelling, loss taste/smell or mouth lesions Cardiovascular Cardiovascular: Reports edema; Denies cold extremities, cyanosis, diaphoresis, dizziness, dyspnea at rest or erythema on extremities Respiratory/Chest Respiratory/Chest: Denies excessive phlegm production, hemoptysis, inability to speak, mouth breathing, nail bed cyanosis, shortness of breath at rest or tachypnea Gastrointestinal Gastrointestinal: Denies abdominal pain, chewing difficulty, coffee ground emesis, dry heaves or excessive flatus Genitourinary Genitourinary: Denies abdominal discomfort or flank pain Musculoskeletal Musculoskeletal: Denies atrophy, muscle spasms, muscle weakness, numbness, tingling or tremors Integumentary Integumentary: Reports skin ulcer; Denies acne, dry skin, hirsutism, jaundice, rash or skin swelling Neurologic Neurologic: Denies behavior changes, burning sensations, confusion, focal weakness, memory loss, restless legs or seizure-like activity Psychiatric Psychiatric: Denies auditory hallucinations, behavioral changes, hallucinations,irritability, tactile hallucinations or visual hallucinations Endocrine Endocrinology: Denies change in body appearance, deepening of the voice, excessive sweating, heat intolerance or increase in ring/shoe/hat size Hematologic/Lymphatic Hematologic/Lymphatic: Denies easy bleeding or easy bruising Allergic/Immunologic Allergic/Immunologic: Denies itchy eyes, lip swelling, throat swelling, tongue swelling, hives or wheezing Vital Signs Vital Signs Vital Signs: 08/06/23 09:59 Temperature 98.2 F Temperature Source Temporal Pulse Rate 94 Respiratory Rate 18 Blood Pressure 136/69 H Blood Pressure Mean 91 Blood Pressure Source Monitor Blood Pressure Position Semi-Fowlers Blood Pressure Location Left Arm Oxygen Delivery Method Room Air Weight Weight: 127 lb Body Mass Index (BMI) 22.4 Physical Exam Const alert, oriented x3 and no apparent distress General Appearance: cooperative, comfortable and well kempt HEENT normocephalic, head/scalp atraumatic and hearing grossly normal bilaterally Eyes EOMs intact bilaterally Neck full ROM General: normal visual inspection Resp normal respiratory effort Auscultation: diminished lung sounds Cardio regular rate, regular rhythm, S1 normal heart sound and S2 normal heart sound GI soft to palpation and non-tender Extremity General Extremity: edema Skin Wounds: wounds noted Neuro oriented x3, CN's II-XII intact bilaterally, moves all extremities and no focal motor deficits Psych mental status grossly normal, thought process normal, cooperative, affect normaland speech normal Debridement Note Debridement Note Wound debrided: Left Leg Type of Debridement: Excisional debridement Anesthesia Used: 5% Lidocaine Gel Depth: Down to and including healthy tissue and in the subcutaneous layer Percentage of wound debrided: 100 Instrument Used: 5mm curette Tissue Removed: Slough and devitalized tissue Severity: Fat Layer Exposed Amount of bleeding with debridement: Mild Bleeding Controlled with: Pressure Patient tolerated procedure: Patient tolerated procedure well Post-Debridement Measurements and Additional Note: Post-Debridement Measurements/Treatment WC - Nurse 1 - General Ulcer Assessment Start: 08/06/23 09:50 Freq: Status: Active Protocol: TANESHA Activity Type Activity Date Activity User E-sign Co-sign Detail Recorded Client Recorded Date Recorded By Document 08/06/23 09:59 KW Desktop 08/06/23 10:05 KW Edit Result 08/06/23 09:59 KW (1) Desktop 08/06/23 10:09 KW (1) Left - Posterior Tibial Doppler => Multiphasic - Dorsalis Pedis Doppler => Multiphasic 08/06/23 09:59 WC - Today's Visit Information Type of service Initial Visit Arrival Mode Ambulatory Accompanied by Patient Identification Verified (Name & Yes ) Height and Weight Height 5 ft 3 in Weight 127 lb Weight in Pounds 127.0 lbs Weight Measurement Method Estimated by Patient Body Mass Index (BMI) 22.4 BMI Classification Normal BSA - Kieran 1.59 Vital Signs Temperature (97.8 F-99.1 F) 98.2 F Temperature Source Temporal Pulse Rate (60-100) 94 Pulse Location Monitor Respiratory Rate (12-18) 18 Respiratory rate source Observation Oxygen Delivery Method Room Air Blood Pressure (90/60-120/80) 136/69 H Blood Pressure Mean 91 Source Monitor Position Semi-Fowlers Blood Pressure Location Left Arm Pain Scale: 0-10 Numeric Is Patient Pain Free? No LLE -Intensity 3 -Alleviating Factors/Interventions Medication Lower Extremity Assessment/ Foot Assessment/ Toe Nail Assessment Left -Posterior Tibial Palpable Yes -Posterior Tibial Doppler Multiphasic -Dorsalis Pedis Palpable Yes -Dorsalis Pedis Doppler Multiphasic -Extremity Color Normal -Hair Growth on Legs No -Hair Growth on Toes No -Temperature of Extremity Warm -Capillary Refill Less than 3 Seconds -Thick No -Discolored No -Deformed No -Improper Length & Hygeine No Communication Assessment Preferred language Cameroonian Sports Coordinator Required No Able to Read Yes Able to Write Yes Communication Tools None Caregiver Communication Skills No Impairment Impairment Right Hearing Abillity Use of Hearing Aid Left Hearing Abillity Use of Hearing Aid Visual Assistive Devices Glasses Teaching Assessment Preferences Verbal,Written Barriers to Learning None Readiness To Learn Excellent Willingness to Engage in Self Management High Activies Readiness to Engage in Self Management High Activities Anxiety Level Calm Cooperation Cooperative Perception Coherent Interest in Health Problem Asks Questions Education Importance Acknowledges Need Does Patient Smoke tobacco or other Yes substances Smoking Status Current every day smoker Is Patient Diabetic No Functional Assessment Recent Decline in Ability to Perform Denies Any Declines Culture/Moravian/Breast Puller Cultural/Moravian Needs that may affect No Treatment Plan Would you allow our hospital blood bank worker to No meet you for the purpose of spiritual/ emotional support? Breast Puller to contact place of spiritism No WC - Nurse 1 - General Ulcer Measurement Start: 08/06/23 09:50 Freq: Status: Active Protocol: Activity Type Activity Date Activity User E-sign Co-sign Detail Recorded Client Recorded Date Recorded By Document 08/06/23 09:59 KW Desktop 08/06/23 10:05 08/06/23 09:59 Wound Center Nurse 1 #1 LT ANTERIOR LE -Current Size (cm) - Length 1.2 -Current Size (cm) - Width 1.7 -Current Size (cm) - Depth 0.3 -Total Square Cm 2.04 -Date of Last Picture (Recall this 08/06/23 field) -Photo Taken Yes -Exudate Amt Medium -Exudate Type Yellow/Green -Wound Margin Distinct, Outline Attached -Granulation Amt Small (1-33%) -Granulation Quality Red -Necrosis Amt Large (67-100%) -Necrotic Tissue Type Adherent Slough -Texture (Florina-wound Skin Appearance) Assessed -Moisture (Florina-wound Skin Appearance) Assessed -Color (Florina-wound Skin Appearance) Assessed, Erythema -Temperature (Florina-wound Skin No Abnormality Appearance) (Pt Warm) -Ulcer Cleansing Soap and Water -Anesthetic Used 5% Lidocaine Gel Left Calf (cm) 35 Left Ankle (cm) 24.8 WC - Nurse 2 - General Ulcer CM Notes Start: 08/06/23 09:50 Freq: Status: Active Protocol: Activity Type Activity Date Activity User E-sign Co-sign Detail Recorded Client Recorded Date Recorded By Document 08/06/23 10:31 Desktop 08/06/23 10:32 08/06/23 10:31 Wound Center Nurse 2 #1 LT ANTERIOR LE -Time 10:31 -Correct Patient Yes -Correct Side, Site, Position Yes -Correct Procedure Yes -Procedure Performed Yes -Type of Procedure Debridement -Tissue Removed Epidermis, Subcutaneous -Post Debridement (cm) - Length 1.5 -Post Debridement (cm) - Width 2.0 -Post Debridement (cm) - Depth 0.4 -Total Square (Post) (cm) 3.00 -Area of Debridement (cm) - Length 1.5 -Area of Debridement (cm) - Width 2.0 -Total Square (Area) (cm) 3.00 -Tunneling No -Undermining/Tunneling No -Circular Undermining No -Wound/Ulcer Outcome Not Healed -Ulcer Cleansing Rinsed/ Irrigated with Saline -Foul Odor after Cleansing No -Bioengineered Tissue No -Bleeding Controlled with Pressure -Treatment Response Procedure Tolerated Well -Debridement - Subq, 1st 20sq cm Yes Pain Scale: 0-10 Numeric Is Patient Pain Free? Yes - Nurse 3 - General Ulcer D/C NN Start: 08/06/23 09:50 Freq: Status: Active Protocol: Activity Type Activity Date Activity User E-sign Co-sign Detail Recorded Client Recorded Date Recorded By Document 08/06/23 10:34 GM Desktop 08/06/23 10:35 GM 08/06/23 10:34 Wound Care Center Nurse 3 #1 LT ANTERIOR LE -Primary Dressing Applied Promogran -Primary Dressing Covered/Secured with Dry Gauze & Roll Gauze, Secured with Tape -Promogran 2 Left -Tubular Bandage Double Layer -Size of Tubigrip Used Size D -Size D ($) 2 Pain Scale: 0-10 Numeric Is Patient Pain Free? Yes WC - Visit Discharge Discharge Condition Stable Ambulatory Status Ambulatory Transportation Private Auto Accompanied by Medication Reconcilliation completed & No provided to patient/care provider Clinical Summary of Care Provided Yes Charges/Coding Visit Charges Office Visits / Consults: 01451 OV L4 New 45min Procedures Integumentary 111xxx-113xx: [id number] Ainsley subq tissue 20 sq cm/< Assessment/Plan Assessment/Plan (1) Puncture wound of left leg excluding thigh: CODE(S): S81.832A - Puncture wound without foreign body, left lower leg, initial encounter QUALIFIERS: Encounter type: initial encounter Qualified Code(s): S81.832A - Puncture wound without foreign body, left lower leg, initial encounter (2) Cat bite of left lower leg: CODE(S): S81.852A - Open bite, left lower leg, initial encounter; W55.01XA- Bitten by cat, initial encounter QUALIFIERS: Encounter type: initial encounter Qualified Code(s): S81.852A - Open bite, left lower leg, initial encounter; W55.01XA - Bitten by cat, initial encounter (3) Tobacco abuse: CODE(S): Z72.0 - Tobacco use (4) History of COPD: CODE(S): Z87.09 - Personal history of other diseases of the respiratory system (5) Venous (peripheral) insufficiency: CODE(S): I87.2 - Venous insufficiency (chronic) (peripheral) PLAN: Plan Debridement done as documented above, procedure was well-tolerated. Nonhealing left leg/lower extremity wound. ??? Cat bite. She states that she was trying to separate 2 cats and believes that the injury happened afterwards. Not exactly sure of how it happened. Has been seen at an urgent care and measures so far have not been helpful. Cultures taken after debridement, labs also ordered. Will review. For now, Promogran daily, cover with ABD. Double layer Tubigrip for compression. History of venous insufficiency. Leg elevation, exercise as tolerated also discussed. She endorses that her appetite is not so good overall, protein supplements recommended. Increase intake of protein rich foods. Vitamin C, D and zinc also discussed, she voiced understanding. Questions were answered and she was advised to let us know if she has any further questions or concerns. In a week or sooner if needed. This note was generated with [employer] software. It may contain incorrectwords, spelling, and punctuation that were not noted in checking the note beforesigning. 08/06/23 1304 <Electronically signed by Ervin Darling MD> Cosigner Signature (if applicable): CC: ~ Signed [facility] Work Phone: [phone] Procedure [facility] 07-31-2023 [facility]24 Procedure note [facility]04-19-2024 [facility] 12-08-2022 Discharge summary Author Kaushik Posada [facility] December 08, 2022 4:43pm Note Date/Time December 08, 2022 3: 48pm [facility] Medical Records Department [address] [place] [address] Emergency Department Summary 12/08/22 MR#: [id number] Acct: [id number] Name: SONIA NOBLE Rep #:[id number] : 1945 77 From: Kaushik Posada MD PCP: Dr. Zuly Blas, DO Status:REG ER Location: ED HPI History of Present Illness Chief Complaint: Lower Extremity Injury Informant: patient and spouse/S.O. Narrative Narrative: Patient complains of lateral left ankle pain. Patient states that yesterday she felt fine. Today she gets intermittent pain in her left ankle. She states it seems to just be off and on. She is able to bear weight at times. But then she will move a certain way and it suddenly has sharp pain. She has no pain higher up her leg. She always has some back pain and has had prior back surgeries but is not having any difference with this. Pain does not radiate down from the back. It only occurs at the lateral left ankle. Most of is actually at the lower tip of the lateral malleolus. She states it seems a little bit swollen there. But she has had no fevers or chills. She has no recent infection or antibiotic use. She has never had DVT or PE. She is not on any blood thinners. She does not recall any specific trauma but feels certainly she could have hurt the ankle slightly. Other than that one spot of her ankle she feels perfectly fine. [facility] Medical History (Updated 12/08/22 @ 16:[address] Kaushik Posada MD) Arthritis Depression with anxiety Diarrhea GERD (gastroesophageal reflux disease) History of back problems History of colon cancer History of thyroid cancer Home Medications levothyroxine 125 mcg tablet 125 mcg PO DAILY 06/11/13 [History Last Taken 01/24/19 06:45 125 mcg] lorazepam 1 mg tablet 1 mg PO QHS 06/11/13 [History Last Taken 06/11/13 1 mg] omeprazole 20 mg capsule,delayed release 40 mg PO DAILY GERD 06/11/13 [History Last Taken 01/24/19 06:45 20 mg] meloxicam 15 mg tablet 15 mg PO DAILY 06/12/13 [History Last Taken 06/12/13 15 mg] mirtazapine 15 mg tablet 45 mg PO QHS sleep 03/18/14 [History Last Taken Unknown] cholecalciferol (vitamin D3) 1,250 mcg (50,000 unit) capsule 50,000 units PO QWEEK 01/24/19 [History Last Taken Unknown] pravastatin 10 mg tablet 10 mg PO QHS 01/24/19 [History Last Taken Unknown] sertraline 100 mg tablet 100 mg PO DAILY 09/17/21 [History Last Taken Unknown] azithromycin 250 mg tablet See Rx Instructions PO .COMPLEX #6 tabs 08/04/22 [Rx Last Taken Unknown] Allergy/AdvReac Type Severity Reaction Status Date / Time Sulfa (Sulfonamide Allergy Rash Verified 12/08/22 14:11 Antibiotics) Family History Father Colon cancer Mother Heart disease Osteoporosis Surgical History History of colectomy History of hysterectomy History of partial thyroidectomy Social History Smoking Status: Current every day smoker tobacco type: cigarettes alcohol intake: never substance use type: does not use ROS ROS ED Constitutional Constitutional ED: Denies chills or fever(s) ENT ENT ED: Denies sore throat Cardiovascular Cardiovascular: Denies chest pain or palpitations Respiratory/Chest Respiratory/Chest: Denies cough or dyspnea Gastrointestinal Gastrointestinal: Denies nausea or vomiting Musculoskeletal Musculoskeletal: Reports arthralgias and other Details: Patient has some chronicback soreness but nothing new or different. ; Denies back pain, myalgias or neck pain Integumentary Denies abscess, Abrasions or rash Neurologic Neurologic: Denies paresthesias or weakness Hematologic/Lymphatic Hematologic/Lymphatic: Denies easy bleeding, easy bruising or lymphadenopathy Allergic/Immunologic Allergic/Immunologic ED: Denies urticaria EXAM Physical Exam Narrative Exam Narrative: Patient awake alert no acute distress sitting comfortably in bed. HEENT shows no trauma. No erythema. Heart is regular. I hear no murmur even at her age. Lungs are clear bilaterally and saturations are normal at 98% on room air. Thisis not hypoxic. There is no coughing. Abdomen soft nontender. Back shows no areas of tenderness. Extremities do show what appears to be a little bit of swelling really on the lateral aspect of the left ankle. It involves the area inferior and anterior tothe lateral malleolus and goes back towards the Achilles tendon. But the Achilles tendon is not tender. It is also intact by palpation and Boyle test. No tenderness the calcaneus. There is a little bit of point tenderness right at the tip of the lateral malleolus. But there is absolutely 0 warmth or erythema. Patient can actively and passively move the ankle [id number] without any pain. There is no indication of infection whatsoever. No distendedveins. There does appear to be a slight amount of fullness of the calf on the left compared to the right. But it is only about 1 cm larger. Veins are not distended and I feel no cord. Const Vital Signs: 12/08/22 14:11 Temperature 97.2 F L Temperature Source Temporal Pulse Rate 101 H Respiratory Rate 14 Blood Pressure 110/85 H Blood Pressure Mean 93 Pulse Ox 98 Oxygen Delivery Method Room Air MDM MDM MDM Narrative Medical decision making narrative: There is absolutely no clinical indication or suspicion of infection at this time. I think this is likely an arthritic flare because it hurts which when shemoves it certain ways, there is a little bit of tenderness, and there is some mild swelling. But we will do x-ray to make sure we do not see any acute injuryor fracture. I will also do ultrasound to evaluate for possibility of DVT. I do not think blood work would contribute to this as I have no clinical suspicion of infection. I spoke directly with the tech. The ultrasound of her leg is negative for DVT. My independent interpretation the patient's three-view x-ray of the left ankle shows no sign of acute process. Final reading is no acute bony injury. She has a 1 area that is tender. There is a little bit of swelling. There is alittle bit of pain at times with weightbearing if she moves a certain way. I donot think this is really neurologic although she has had a lot of back issues that is not hurting and she does not have radiation all the way down the leg. She has localized pain with a little swelling. I think ice rest and her meloxicam should help. We did discuss specific reasons to return or follow-up for. Radiography Diagnostic Testing: Clinical Impression(s) from Imaging Studies Ankle X-Ray 12/08/22 16:08 IMPRESSION: No acute bony injury. Electronically Signed: Alvaro Maurice DO at 16:22 EDT Reading Location ID and State: [facility] / [place] Tel [phone], Service support , Discharge Plan Triage Chief Complaint: Lower Extremity Injury ED Provider: Kaushik Posada Dx/Rx/DC Orders Clinical Impression: Left lateral ankle pain, History of arthritis Instructions: ED Arthralgia Prescriptions: No Action azithromycin 250 mg tablet See Rx Instructions PO .COMPLEX Qty: 6 0RF Rx Instructions: take 500 mg today (day 1), then 250 mg for 4 days (days 2-5) PO levothyroxine 125 MCG tablet 125 mcg PO DAILY Patient Comments: THYROID omeprazole 20 MG capsule 40 mg PO DAILY Patient Comments: GERD lorazepam 1 MG tablet 1 mg PO QHS Patient Comments: ANXIETY meloxicam 15 MG tablet 15 mg PO DAILY Patient Comments: pain mirtazapine 15 MG tablet 45 mg PO QHS pravastatin 10 MG tablet 10 mg PO QHS cholecalciferol (vitamin D3) 50,000 UNIT capsule 50,000 units PO QWEEK Patient Comments: takes on sertraline 100 mg Tablet 100 mg PO DAILY Primary Care Provider: Zuly Blas Referrals: Zuly Blas DO [Primary Care Provider] - 3-5 Days if not improving Disposition Disposition: Home, Self Care What to do if you have Problems For any increased pain, shortness of breath, bleeding, nausea or vomiting, chestpain, or any unexpected problems, contact your Primary Care Provider. Call [facility] ([phone]) or report to the closest Emergency Room. Call 911 if necessary. 12/08/22 1643 <Electronically signed by Kaushik Posada MD> Cosigner Signature (if applicable): CC: Dr. Zuly Blas DO ~ Signed [facility] Work Phone: evaluation noteNo assessment information available [facility] Work Phone: Evaluation note* Diagnosis Onset Date Resolution Status History of colon cancer acut e History of gastroesophageal reflux (GERD) chronic Cat bite of left lower leg a cute [facility] Work Phone: Evaluation note* Diagnosis Onset Date Resolution Status History of colon cancer acut e History of gastroesophageal reflux (GERD) chronic Cat bite of left lower leg a cute Cat bite of left lower leg a cute Cat bite of left lower leg a cute Puncture wound of left leg excluding thigh acute Tobacco abuse acute Venous (peripheral) insufficiency acute History of COPD chronic Large hiatal hernia acute [facility] Work Phone: Evaluation note* Diagnosis Paraesophageal hernia- Primary Diaphragmatic hernia without mention of obstruction or gangrene Gastroesophageal reflux disease without esophagitis Esophageal reflux Tobacco use disorder Esophageal dysphagia Dysphagia, pharyngoesophageal phase Hyperlipidemia, unspecified hyperlipidemia type Depression, unspecified depression type Paraesophageal hernia Diaphragmatic hernia without mention of obstruction or gangrene Gastroesophageal reflux disease without esophagitis Esophageal reflux [facility] [place]* Diagnosis Paraesophageal hernia Diaphragmatic hernia without mention of obstruction or gangrene Paraesophageal hernia Diaphragmatic hernia without mention of obstruction or gangrene Gastroesophageal reflux disease without esophagitis Esophageal reflux documented in this encounter [facility] note* Diagnosis Esophageal dysphagia- Primary Dysphagia, pharyngoesophageal phase Esophageal dysphagia Dysphagia, pharyngoesophageal phase documented in this encounter [facility] note* Diagnosis Paraesophageal hernia- Primary Diaphragmatic hernia without mention of obstruction or gangrene Moderate smoker (20 or less per day) Tobacco use disorder PONV (postoperative nausea and vomiting) Nausea with vomiting Loss of weight Other iron deficiency anemia Gastroesophageal reflux disease, unspecified whether esophagitis present Personal history of colon cancer Personal history of malignant neoplasm of large intestine Hyperlipidemia, unspecified hyperlipidemia type Tobacco use disorder Depression, unspecified depression type Esophageal dysphagia Dysphagia, pharyngoesophageal phase documented in this encounter [facility] note* Diagnosis Paraesophageal hernia Diaphragmatic hernia without mention of obstruction or gangrene Gastroesophageal reflux disease without esophagitis Esophageal reflux Esophageal dysphagia Dysphagia, pharyngoesophageal phase documented in this encounter [facility] note* Diagnosis Paraesophageal hernia Diaphragmatic hernia without mention of obstruction or gangrene [facility] Author Gareth Steven [facility] July 31, 2023 8:26am Note Date/Time July 31, 2023 8:2 6am [facility] Medical Records Department [address] [place] [id number] History & Physical Exam 07/31/23 0825 MR#: [id number] Acct: [id number] Name: SONIA NOBLE Rep #:[id number] : 1945 78 From: Gareth rossi MD PCP: Dr. Zuly Blas, DO Status:[facility] Location: [place] [address] History and Physical Date of Admission: 07/31/23 Intake Vital Signs 12/08/2313:11 07/08/2408:03 Height 5 ft 2 in 5 ft 1.6 in Weight: 131 lb BMI 24.3 BP 120/77 Blood Pressure Location Rt brachial Position Sitting Respiration 18 Pulse 84 Pulse Source Monitor Temp 97.4 F L Temp Source Temporal Pulse Oximetry (%) 98 Oxygen Delivery Method room air Intake Visit Reasons: SCREENING COLONOSCOPY Chief Complaint: C-Scope Sports Coordinator Required: No Is patient in pain?: No Allergies Sulfa (Sulfonamide Antibiotics) Allergy (Verified 07/09/23 09:05) Rash Medications lorazepam 1 mg tablet 1 mg PO QHS 06/11/13 [History Confirmed 07/09/23] omeprazole 20 mg capsule,delayed release 40 mg PO DAILY GERD 06/11/13 [History Confirmed 07/09/23] meloxicam 15 mg tablet 15 mg PO DAILY 06/12/13 [History Confirmed 07/09/23] mirtazapine 15 mg tablet 45 mg PO QHS sleep 03/18/14 [History Confirmed 07/09/23] cholecalciferol (vitamin D3) 1,250 mcg (50,000 unit) capsule 50,000 units PO QWEEK 01/24/19 [History Confirmed 07/09/23] pravastatin 10 mg tablet 10 mg PO QHS 01/24/19 [History Confirmed 07/09/23] levothyroxine 125 mcg tablet 100 mcg PO DAILY 07/09/23 [History Confirmed 07/09/23] liothyronine 5 mcg tablet 5 mcg PO DAILY 07/09/23 [History Confirmed 07/09/23] sertraline 100 mg tablet 150 mg PO DAILY 07/09/23 [History Confirmed 07/09/23] PFSH Medical History Arthritis Back problem COPD (chronic obstructive pulmonary disease) Depression with anxiety Diarrhea GERD (gastroesophageal reflux disease) History of back problems History of colon cancer History of thyroid cancer Smoking hx Surgical History (Updated 07/09/23 @ 09:00 by Mikala Christian) History of colectomy History of hysterectomy History of partial thyroidectomy Family History Father Colon cancerMother Heart disease Osteoporosis Social History Smoking Status: Current every day smoker tobacco type: cigarettes alcohol intake: never substance use type: does not use HPI HPI HPI: Patient is a 70-year-old female here for GERD and for surveillance colonoscopy. She had a right hemicolectomy for colon cancer in 2010. Patient reports she hasbeen having diarrhea since the surgery. She also reports her acid reflux has been getting worse. She said it is worst at night. ROS General General: Yes colon cancer; No weight change, appetite, fatigue, breast cancer or weakness HEENT HEENT: No difficulty swallowing, eye injury, eye surgery, swollen glands or hoarseness Endo Endocrine: Yes thyroid disease; No diabetes mellitus, thyroid cancer, Hair loss, heat intolerance or cold intolerance Skin Skin: No rash or changing moles Breast Breast: No left breast lump, right breast lump, nipple discharge, breast pain, abnormal mammogram, abnormal US or breast enlargement Musc Musculoskeletal: Yes back problems, arthritis, rheumatoid arthritis and joint pain; No gout Cardio Cardiovascular: No murmur, pacemaker, heart disease, atrial fibrillation, high blood pressure, heart attack, heart stent, palpitations, shortness of breat withexertion or chest pain Psych Psychiatric: Yes depression and anxiety; No hearing voices Resp Respiratory: No shortness of breath, No sleep apnea, Yes cough, Yes COPD, No asthma, No emphysema and No wheezing Gastro Gastrointestinal: Yes abdominal pain, Yes nausea or vomiting, Yes diarrhea, No constipation, No blood in stool, Yes acid reflux, Yes hemorrhoids, No ulcers, Nogallbladder problem and No black,tarry stools Osvaldo Hematologic: No blood thinners, No blood disorders, No bleeding, No anemia and No blood clots Neuro Neurologic: No system reviewed and no additional complaints, except as documented, No as per HPI, No abnormal gait, No abnormal hearing, No abnormal movements, No abnormal speech, No behavioral changes, No burning sensations, No confusion, No convulsions, No disequilibrium, No dizziness, No localized weakness, No frequent falls, No headache(s), No lack of coordination, No loss ofvision, No memory loss, No numbness, No other visual disturbances, No radicular pain, No restless legs, No sensory deficit, No syncope, No tingling, No tremor(s), No weakness and No other Exam Const General: cooperative Orientation: alert and oriented x3 HENMT Head: normal to inspection Neck Neck: normal visual inspection and full ROM Chest Chest palpation & inspection: normal inspection of the chest Resp Effort & Inspection: normal respiratory effort Auscultation: clear to auscultation bilaterally Cardio Rate: regular rate Rhythm: regular rhythm GI Inspection: non-distended Palpation: soft and nontender Skin General: no rashes or lesions noted Neuro General: patient alert and patient oriented x3 Extrem General: full ROM Psych Appearance: grossly normal Mental Status: mental status grossly normal Assessment and Plan Assessment and Plan (1) History of gastroesophageal reflux (GERD): Status: Chronic Plan: Patient has a history of GERD and reports her GERD has been getting worse. I advised her to try taking omeprazole twice a day and I will perform EGD to evaluate her esophagus and stomach. (2) History of colon cancer: Status: Acute Plan: Patient is due for surveillance colonoscopy as she had colon cancer in 2010. Her last colonoscopy was 5 years ago. It was normal. She reports diarrhea but she says has been chronic since her colectomy. Gareth Steven MD Pager: [facility] [address] [place] [address], [address] [place] [address] Office: I have examined the patient and the H&P has been reviewed. There are no clinicalchanges since date of exam. 07/31/23 0826 <Electronically signed by Gareth Steven MD> Cosigner Signature (if applicable): CC: Dr. Gareth Steven MD; Dr. Zuly Blas DO~ Signed [facility] Work Phone: Hospital Discharge instructionsAmbulatory Orders* General Surgery Location: None Selected [facility] Work Phone: Reason for referral (narrative)* Outpatient Procedure (Routine) - New Request Specialty Diagnoses / Procedures Referred By Contac t Referred To Contact [facility] Diagnoses Esophageal dysphagia Procedures MANOMETRY ESOPHAGEAL ESOPHAGEAL MOTILITY STUDY W/INTERP&RPT Chasity Mir MD [address] [address] [facility] [address] [place] [address] Referral ID Status Reason Start Date Expiration Date Visits Requested Visits Authorized [id number] New Request Auto-Generat ed Referral 10/28/2023 10/27/2024 1 1 * Outpatient Procedure (Routine) - New Request Specialty Diagnoses / Procedures Referred By Humberto de anda Referred To Contact [facility] Diagnoses Paraesophageal hernia Procedures ECG COMPLETE ECG ROUTINE ECG W/LEAST 12 LDS W/I&R Chasity Mir MD 1 [facility] [address] [place] [address] [facility] [place] [address] [place] [id number] Referral ID Status Reason Start Date Expiration Date Visits Requested Visits Authorized [id number] New Request Auto-Generat ed Referral 10/28/2023 10/27/2024 1 1 * Diagnostic Procedure Only (Routine) - New Request Specialty Diagnoses / Procedures Referred By Humberto de anda Referred To Contact [facility] Diagnoses Paraesophageal hernia Gastroesophageal reflux disease without esophagitis Procedures XR UPPER GI ROUTINE DOUBLE CONTRAST/AIR RADIOLOGIC EXAM UPR GI TRC DOUBLE CONTRAST STUDY Chasity Mir MD 1 [facility] [address] [place] [address] [place] [id number] Referral ID Status Reason Start Date Expiration Date Visits Requested Visits Authorized [id number] New Request Auto-Generat ed Referral 10/28/2023 11/26/2024 1 1 [facility] for referral (narrative)* Diagnostic Procedure Only (Routine) - Closed Specialty Diagnoses / Procedures Referred By Humberto de anda Referred To Contact [facility] Diagnoses Paraesophageal hernia Gastroesophageal reflux disease without esophagitis Procedures XR UPPER GI ROUTINE DOUBLE CONTRAST/AIR RADIOLOGIC EXAM UPR GI TRC DOUBLE CONTRAST STUDY Chasity Mir MD 1 [facility] [address] [place] [address] [place] [address] Referral ID Status Reason Start Date Expiration Date V isits Requested Visits Authorized [id number] Closed Auto-Generate d Referral 10/28/2023 11/26/2024 1 1 [facility] reason for referral information [facility] Work Phone: Reason for visit Narrative* Diagnostic Procedure Only (Routine) - Closed Specialty Diagnoses / Procedures Referred By Contac t Referred To Contact [facility] IM[facility] Diagnoses Paraesophageal hernia Gastroesophageal reflux disease without esophagitis Procedures XR UPPER GI ROUTINE DOUBLE CONTRAST/AIR RADIOLOGIC EXAM UPR GI TRC DOUBLE CONTRAST STUDY Chasity Mir MD [address] [facility] [address] [place] [address] [place] [id number] Referral ID Status Reason Start Date Expiration Date V isits Requested Visits Authorized [id number] Closed Auto-Generate d Referral 10/28/2023 11/26/2024 1 1 [facility] Chief Complaint and Reason for Visit Chief Complaint OSTEO Chief Complaint OSTEO RECLAST Chief Complaint screening Chief Complaint screening FOREIGN OBJECT IN EAR Chief Complaint FOREIGN OBJECT IN EA R Chief Complaint ankle Chief Complaint ankle SCREENING Chief Complaint SCREENING COLONOSCOP Y CAT SCRATCH/CONCERN FOR INFEC EORDER Reason for Visit History of colon can cer History of gastroesophageal reflux (GERD) Cat bite of left lower leg Chief Complaint SCREENING COLONOSCOP Y CAT SCRATCH/CONCERN FOR INFEC EORDER 2ND VISIT/CAT BITE/CONCERN FOR INFECTION WOUND WOUND LEFT SWAIN WOUND DISCUSS HIATIAL HERNIA Reason for Visit History of colon can cer History of gastroesophageal reflux (GERD) Cat bite of left lower leg Cat bite of left lower leg Cat bite of left lower leg Puncture wound of left leg excluding thigh Tobacco abuse Venous (peripheral) insufficiency History of COPD Large hiatal hernia Chief Complaint Admit Date R HIP FX RX HERE April 25, 2024 1 0:30am RIGHT HIP June 02, 2024 8:47am RM 4 June 02, 2024 8:58am Reason for Visit Admit Date Closed right hip fracture June 02, 2024 8:47am Leg length discrepancy June 02 8:47am Family History No Family History Records Found Relationship Condition Age at Onset Recorded Date/T [place] father Malignant neoplasm of colon Unknown mother Cardiac disease Unknown Osteoporosis Unknown Advance Directives No Advanced Directives Records Found Advance Directive Response Recorded Date/ Time Advance Directives No February 07, 2016 2:45pm Living Will No January 20 11:55am Power of Painter Set No January 20, 2019 11:55am Advance Directive Response Recorded Date/ Time Advance Directives No February 07, 2016 1:45pm Living Will No March 14 1:28pm Power of Painter Set No March 14, 2022 1:28pm Advance Directive Response Recorded Date/ Time Advance Directives No February 07, 2016 2:45pm Living Will No December 08 3 3:23pm Power of Painter Set No December 08, 2 023 3:23pm Advance Directive Response Recorded Date/ Time Advance Directives No February 07, 2016 1:45pm Living Will No December 08 3 2:23pm Power of Painter Set No December 08, 2 023 2:23pm Advance Directive Response Recorded Date/ Time Advance Directives No February 07, 2016 2:45pm Living Will No July 28, 2023 9:49am Power of Painter Set No July 27 9:49am Advance Directive Response Recorded Date/ Time Living Will Yes November 12, 2023 5:32pm Do you have a Healthcare Power of Painter Set? Yes November 12, 2023 5:32pm Advance Directives No February 07, 2016 2:45pm Summary Purpose Additional Source Comments Goals (unrecognized section and content) Goals may be documented in a n alternate sectionGoals may be documented in an alternate sectionGoals may be documented in an alternate sectionGoals may be documented in an alternate sectionGoals may be documented in an alternate sectionGoals may be documented in an alternate sectionGoals may be documented in an alternate sectionGoals may be documented in an alternate sectionGoals may be documented in an alternate sectionGoals may be documented in an alternate sectionGoals may be documented in an alternate sectionGoals may be documented in an alternate section Care Teams (unrecognized sec tion and content) Team Status: Active Member Role Status Dates Dr. Zuyl Blas , DO Family Provider Active Dr. Zuly Blas , DO Primary Care Provider Active Team Status: Inactive Member Role Status Dates Dr. Zuly Blas , DO Primary Care Provider Active Dr. Corby Mckay , DO Attending Provider, Emergency P aliyah Active Team Status: Inactive Member Role Status Dates Dr. Zuly Blas , DO Primary Care Provider, Attending P aliyah Active Team Status: Active Member Role Status Dates Dr. Zuly Blas , DO Primary Care Provider, Attending P rovider Active Team Status: Active Member Role Status Dates Dr. Zuly Blas DO Primary Care Provider Active Dr. Tanya Brennan MD Attending Provider Active Team Status: Inactive Member Role Status Dates Dr. Zuly Blas DO Primary Care Provide r, Attending Provider, Referring Provider Active Team Status: Active Member Role Status Dates Dr. Zuly Blas DO Primary Care Provide r, Attending Provider, Referring Provider Active Team Status: Inactive Member Role Status Dates Dr. Zuly Blas DO Primary Care Provider Active Dr. Kaushik Posada MD Emergency Provider Active Team Status: Active Member Role Status Dates Dr. Zuly Blas DO Primary Care Provider Active Dr. Tanya Brennan MD Attending Provider Active Dr. Kaushik Posada MD Referring Provider Active Team Status: Inactive Member Role Status Dates Dr. Zuly Blas DO Primary Care Provider Active Dr. Kaushik Posada MD Attending Provider, Emergency Provider Active Team Status: Inactive Member Role Status Dates Dr. Zuly Blas DO Primary Care Provider, Referring P rovider Active Dr. Gareth Steven MD Attending Provider Active Team Status: Inactive Member Role Status Dates Dr. Zuly Blas DO Primary Care Provider, Referring P rovider Active Mac Hess PA, PA Attending Provider Active Team Status: Active Member Role Status Dates Dr. Zuly Blas DO Primary Care Provider, Referring P rovider Active Dr. Gareth Steven MD Attending Provider, Other Provider Active Team Status: Active Member Role Status Dates Dr. Zuly Blas DO Primary Care Provider Active Mac Hess PA, PA Attending Provider, Referring Pr ovider Active Team Status: Inactive Member Role Status Dates Dr. Zuly Blas DO Primary Care Provider Active Mac Hess PA, PA Attending Provider, Referring Pr ovider Active Team Status: Active Member Role Status Dates Dr. Zuly Blas DO Primary Care Provider Active Dr. Ervin Darling MD Attending Provider, Other Pr ovider Active Mac Hess PA, PA Referring Provider Active Team Status: Active Member Role Status Dates Dr. Zuly Blas DO Primary Care Provider Active Dr. Ervin Darling MD Attending Provider Active Mac Hess PA, PA Referring Provider Active Team Status: Active Member Role Status Dates Dr. Zuly Blas DO Primary Care Provider Active Dr. Ervin Darling MD Attending Provider, Referrin g Provider Active Team Status: Inactive Member Role Status Dates Dr. Zuly Blas DO Primary Care Provider Active Dr. Ervin Darling MD Attending Provider, Referrin g Provider Active Team Status: Inactive Member Role Status Dates Dr. Zuly Blas DO Primary Care Provider Active Dr. Ervin Darling MD Attending Provider Active Mac Hess PA, PA Referring Provider Active Frontload Driver Relationship Specialty Start Date End Date Zuly Blas [address] [place] [address] PCP - General Family Medicine 11/10/23 Frontload Driver Relationship Specialty Start Date End Date Zuly Blas [address] [place] [address] PCP - General Family Medicine 11/10/23 Frontload Driver Relationship Specialty Start Date End Date Zuly Blas DO [address] [place] [id number] PCP - General Family Medicine 11/10/23 Team Status: Active Member Role Status Dates Dr. Zuly Blas DO Primary Care Provider Active Team Status: Inactive Member Role Status Dates Dr. Zuly Blas DO Primary Care Provider Active Start: April 25, 2024 End: April 25, 2024 Dr. Reginaldo Cool MD Attending Provider Active Start: April 25, 2024 End: April 25, 2024 Dr. Reginaldo Cool MD Referring Provider Active Start: April 25, 2024 End: April 25, 2024 Team Status: Inactive Member Role Status Dates Dr. Zuly Blas DO Primary Care Provider Active Start: June 02, 2024 End: June 02, 2024 Dr. Zuly Blas DO Referring Provider Active St art: June 02, 2024 End: June 02, 2024 Dr. Reginaldo Cool MD Attending Provider Active Start: June 02, 2024 End: June 02, 2024 Team Status: Inactive Member Role Status Dates Dr. Zuly Blas DO Primary Care Provider Active Start: June 02, 2024 End: June 02, 2024 Dr. Jorge Maria MD Attending Provider Active S tart: June 02, 2024 End: June 02, 2024 Team Status: Inactive Member Role Status Dates Dr. Zuly Blas DO Primary Care Provider Active Start: July 25, 2024 End: July 25, 2024 Dr. Zuly Blas DO Attending Provider Active St art: July 25, 2024 End: July 25, 2024 Source Comments (unrecognize d section and content) In the event this informatio n is protected by the Federal Confidentiality of Alcohol and Drug Abuse Patient Records regulations: The Federal rules restrict any use of the information to criminally investigate or prosecute any alcohol or drug abuse patient.[facility] the event this information is protected by the Federal Confidentiality of Alcohol and Drug Abuse Patient Records regulations: The Federal rules restrict any use of the information to criminally investigate or prosecute any alcohol or drug abuse patient.[facility] the event this information is protected by the Federal Confidentiality of Alcohol and Drug Abuse Patient Records regulations: The Federal rules restrict any use of the information to criminally investigate or prosecute any alcohol or drug abuse patient.[facility] the event this information is protected by the Federal Confidentiality of Alcohol and Drug Abuse Patient Records regulations: The Federal rules restrict any use of the information to criminally investigate or prosecute any alcohol or drug abuse patient.[facility] the event this information is protected by the Federal Confidentiality of Alcohol and Drug Abuse Patient Records regulations: The Federal rules restrict any use of the information to criminally investigate or prosecute any alcohol or drug abuse patient.[facility] the event this information is protected by the Federal Confidentiality of Alcohol and Drug Abuse Patient Records regulations: The Federal rules restrict any use of the information to criminally investigate or prosecute any alcohol or drug abuse patient.[facility] the event this information is protected by the Federal Confidentiality of Alcohol and Drug Abuse Patient Records regulations: The Federal rules restrict any use of the information to criminally investigate or prosecute any alcohol or drug abuse patient.[facility]In the event this information is protected by the Federal Confidentiality of Alcohol and Drug Abuse Patient Records regulations: The Federal rules restrict any use of the information to criminally investigate or prosecute any alcohol or drug abuse patient.[facility] the event this information is protected by the Federal Confidentiality of Alcohol and Drug Abuse Patient Records regulations: The Federal rules restrict any use of the information to criminally investigate or prosecute any alcohol or drug abuse patient.[facility] HospitalIn the event this information is protected by the Federal Confidentiality of Alcohol and Drug Abuse Patient Records regulations: The Federal rules restrict any use of the information to criminally investigate or prosecute any alcohol or drug abuse patient.[facility] Hospital[facility] the event this information is protected by the Federal Confidentiality of Alcohol and Drug Abuse Patient Records regulations: The Federal rules restrict any use of the information to criminally investigate or prosecute any alcohol or drug abuse patient.[facility] HospitalIn the event this information is protected by the Federal Confidentiality of Alcohol and Drug Abuse Patient Records regulations: The Federal rules restrict any use of the information to criminally investigate or prosecute any alcohol or drug abuse patient.[facility] HospitalIn the event this information is protected by the Federal Confidentiality of Alcohol and Drug Abuse Patient Records regulations: The Federal rules restrict any use of the information to criminally investigate or prosecute any alcohol or drug abuse patient.[facility] HospitalIn the event this information is protected by the Federal Confidentiality of Alcohol and Drug Abuse Patient Records regulations: The Federal rules restrict any use of the information to criminally investigate or prosecute any alcohol or drug abuse patient.[facility] Reason for Visit (unrecogniz ed section and content) Reason Comments New Patient Reason Comments Appointment Manometry Reason Comments Future Appointment Esophageal manometry Reason Comments EKG Specialty Diagnoses / Procedures Referred By Contac t Referred To [facility] Diagnoses Paraesophageal hernia Procedures ECG COMPLETE ECG ROUTINE ECG W/LEAST 12 LDS W/I&R Chasity Mir MD [address] [facility] [address] [place] [address] [facility] [place] [address] [place] [address] Referral ID Status Reason Start Date Expiration Date V isits Requested Visits Authorized [id number] Closed Auto-Generate d Referral 10/28/2023 10/27/2024 1 1 Reason Comments Patient Update Reason Comments Appointment INFORMATION SOURCE (unrecogn ized section and content) DATE CREATED AUTHOR 11/07/2023 [facility] DATE CREATED AUTHOR AUTHOR'S ORGANIZ ATION 04/22/2024 [facility] DATE CREATED AUTHOR AUTHOR'S ORGANIZ ATION 07/31/2024 [facility] FOR RECORDS PERTAINING TO PATIENTS WHO ARE OR HAVE BEEN ENROLLED IN A CHEMICAL DEPENDENCY/SUBSTANCEABUSE PROGRAM, SOME INFORMATION MAY BE OMITTED. This clinical summary was aggregated from multiple sources. Caution should be exercised in using it in the provision of clinical care. This summary normalizes information from multiple sources, and as a consequence, information in this document may materially change the coding, format and clinical context of patient data. In addition, data may be omitted in some cases. CLINICAL DECISIONS SHOULD BE BASED ON THE PRIMARY CLINICAL RECORDS. Contact At Once! [facility]. provides no warranty or guarantee of the accuracy or completeness of information in this document.
== END | disposition home or self-care (01) ==
LOC: BFHLAB 13:49
PROVIDERS: PCP Family Medicine; Visit Provider Family Medicine
DX: E03.9 Hypothyroidism, unspecified (principal); Z51.81 Encounter for therapeutic drug level monitoring
CPT/HCPCS: 36415; 80053; 84439; 84443; 84481

== ENCOUNTER → 2025-02-07 | Outpatient (CLI) | payer MEDICARE, SELFPAY ==
[2025-02-07 12:34] LABS: Hematocrit 39.5 % (37-47); Hemoglobin 13.3 g/dL (12.0-15.0); Immature Granulocytes Count 0.030 X10^3/uL (0.0-0.0); Mean Corp Hgb Conc 33.7 g/dL (32-36); Mean Corpuscular Volume 92.5 fL (81-99); Mean Platelet Vol. 11.4 fl (6.2-12.0); NRBC Flagged by Analyzer 0 % (0-5); Platelet Count 213 K/mm3 (150-450); RBC Distribution Width CV 14.8 % (11.6-14.6); RBC Distribution Width SD 50.4 fl (35.1-43.9); Red Blood Count 4.27 M/mm3 (4.2-5.4); White Blood Count 5.6 K/mm3 (4.4-11.0)
[2025-02-07 13:19] LABS: AST(SGOT) 30 U/L (<=31); Alanine Aminotransfer ALT/SGPT 18 U/L (<=34); Albumin, Serum 4.1 g/dL (3.4-4.8); Alkaline Phosphatase 158 U/L (35-104); Anion Gap 9 (5-15); BUN 10 mg/dL (4-19); BUN/Creat Ratio 11.5 RATIO (10-20); Calcium,Total 9.5 mg/dL (7.6-11.0); Carbon Dioxide 25.5 mmol/L (21.0-32.0); Chloride 98 mmol/L (98-108); Cholesterol 164 mg/dL (<=200); Free T3 2.5 pg/mL (2.18-3.98); Globulin 3.2 g/dL (2.2-4.2); Glucose 90 mg/dL (70-99); Low Density Lipoprotein Calc. 91 mg/dL; Potassium 4.4 mmol/L (3.3-5.1); Triglycerides 97 mg/dL; Very Low Density Lipoprotein 19 mg/dL (5-40); Vitamin B12 545 pg/mL (180-914); Vitamin D,25 Hydroxy 73.6 ng/mL (30-100); cholesterol:hdl ratio screen 2.98
[2025-02-07 13:45] LABS: Iron 80 ug/dL (50-170)
== END | disposition home or self-care (01) ==
LOC: MTLAB 10:09
PROVIDERS: PCP Family Medicine; Referring Provider Family Medicine; Visit Provider Family Medicine
DX: E03.9 Hypothyroidism, unspecified (principal); E78.5 Hyperlipidemia, unspecified; Z51.81 Encounter for therapeutic drug level monitoring; E55.9 Vitamin D deficiency, unspecified; E53.8 Deficiency of other specified B group vitamins; D50.9 Iron deficiency anemia, unspecified
CPT/HCPCS: 36415; 80053; 80061; 82306; 82607; 83540; 84443; 84481; 85025

== ENCOUNTER 2025-03-28 11:00 | Outpatient (RCR) | payer MEDICARE, SELFPAY ==
--- NOTE | 2025-02-07 14:52 | HP.PTEVAL ---
Patient's Visit Information Visit Information Visit Information: AMOS RIOS is a 79 year old F referred to Physical Therapy by Dr. Zuly Blas DO with a diagnosis of UNBALANCE AND RECENT FALL.. Date of Evaluation: 02/07/25 Physical Therapist: Valerie Baker, PT, Cert MDT Visit Plan Frequency: 2x /Week Duration: 4-6 Weeks Plan: AQUATIC THERAPY 2X'S A WK X 6-8 WKS FOR GAIT AND BALANCE TRAINING, CORE AND JAVID LE STRENGTHENING, STAIR TRAINING, HEP AND INDEP WATER EX PROGRAM INSTRUCTION. Subjective Subjective: THIS PATIENT REPORTS ABOUT 6 WKS AGO SHE TRIPPED OVER SOMETHING IN THE LIVING ROOM AND SHE COULDN'T GET HER BALANCE AND FELL TO THE FLOOR. SHE STATES SHE WAS STUCK AND HER GRANDSON HAD TO HELP HER UP. SHE STATES SHE FELL BACKWARDS WHEN SHE TRIPPED OVER THE [employer]. SHE STATES HER GRANDSON LIVES WITH HER SO HE WAS ALREADY THERE. SHE DENIES INJURING HERSELF IN THE FALL AND STATES SHE DID NOT GO TO THE HOSPITAL OR DOCTOR AFTER THE FALL. SHE REPORTS THIS IS THE ONLY FALL SHE HAS HAD IN THE PAST YEAR. SHE REPORTS SHE HAS BEEN USING A CANE FOR ABOUT A YEAR AND SHE USES WHEN SHE LEAVES HER HOME BUT SHE DOESN'T USE IT IN HER HOME. SHE REPORTS SHE FEELS SAFER WITH THE CANE WHEN SHE IS OUT AND IT HELPS HER R HIP PAIN. R HIP PAIN RANGES 0-6/10. SHE REPORTS SHE GETS A SHARP PAIN IN HER R HIP IF SHE MOVES THE WRONG WAY BUT IT DOESN'T HURT ALL THE TIME. SHE STATES HER IS MORE AFRAID OF HER FALLING THAN SHE IS BUT SHE REALIZES THAT SHE SHOULD PROBABLY BE HERE TOO TO WORK ON HER BALANCE. SHE REPORTS SHE DID AQUA THERAPY LAST YEAR FOR HER HIP PAIN AND SHE CONTINUED [facility] BUT SHE DIDN'T FEEL SAFE BECAUSE OF THE OTHER MEMBERS. SHE WISHES SHE COULD HAVE CONTINUED BECAUSE SHE FEELS LIKE IT WAS HELPING HER BALANCE. SHE REPORTS SHE FEELS SAFEST IN THE WATER, IT DOESN'T HURT HER HIP AND IT HELPS HER BALANCE. PATIENT DENIES LOSS OF BOWEL AND BLADDER CONTROL. SHE DOES HAVE INTERMITTENT TINGLING IN JAVID TOES. GOES IN/OUT FROM DOOR BECAUSE THERE IS ONLY ONE STEP AND IT IS SHORTER THAN IN GARAGE BUT NO HANDRAIL - LEADS UP WITH L LEG, GOES DOWN WITH R LEG WITH CANE. PMH/Recent major surgery: Closed intertrochanteric fracture of right hip - ~ 1 year ago due to fall in bedroom. Venous (peripheral) insufficiency Tobacco abuse Puncture wound of left leg excluding thigh Wears hearing aid Loss of hearing Wears dentures Open wound Cat bite of left lower leg Smoking hx COPD (chronic obstructive pulmonary disease) Back problem Diarrhea GERD (gastroesophageal reflux disease) Depression with anxiety Arthritis History of back problems History of colon cancer History of thyroid cancer History of partial thyroidectomy History of colectomy History of hysterectomy Objective Objective: THIS PATIENT AMBULATES INDEP'LY INTO PT LIMPING ON R LE WITH A STRAIGHT CANE IN HER L UE WITH SLOW STEADY GAIT PATTERN, FLEXED POSTURE AND NO LOB. SHE HAS INCREASED KYPHOSIS,, INCREASED TRUNK FLEXION AND WALKS ON BENT KNEES. NEURO: JAVID LE'S GROSSLY INTACT. STRENGTH: R HIP: 3-/5, KNEE EXT 3+/5, KNEE FLEX 3+/5, ANKLE 3+/5. L HIP 4-/5, KNEE EXT 4-/5, KNEE FLEX 4-/5, ANKLE 4-/5. TUG TIME: 30.[address] CANE INDEP'LY. 30 STS TEST: 4 WITH JAVID UE'S AND WB L LE > R LE AND PROVOKES MILD SOB. OTHER: PATIENT REPORTS SHE DROVER HERSELF HERE TO PT TODAY. Balance/Special Test Scores Lower Extremity Functional Score: 27 Goals Goal 1:: PATIENT WILL HAVE INCREASED BLE AND CORE STRENGTH BY 1/2 GRADE OF ALL EFFECTED MUSCULATURE. Goal Time Frame: 4-6 Weeks Goal 2:: PATIENT WILL COMPLETE 8 STANDS WITH JAVID UE ASSIST IN 30 SECS TO DEMONSTRATE IMPROVED FUNCTIONAL STRENGTH Goal Time Frame: 4-6 Weeks Goal 3:: PATIENT WILL COMPLETE TUG IN < 18 SECS TO DEMONSTRATE IMPROVED GAIT STABILITY Goal Time Frame: 4-6 Weeks Goal 4:: PATIENT WILL BE ABLE TO NEGOTIATE STANDARD SIZE STEPS ONE AT A TIME WITH ONE HR AND CANE WITHOUT LIMITATION TO FEEL CONFIDENT GOING IN AND OUT OF THE HOUSE THROUGH HER GARAGE. Goal Time Frame: 6-8 Weeks Goal 5:: INDEP WATER EX PROGRAM TO COMPLETE MEMBER AT FACILITY OF CHOICE. Goal Time Frame: 6-8 Weeks Rehabilitation Potential Physical Therapy Diagnosis: POOR POSTURE AND CORE STRENGTH WITH JAVID LE WEAKNESS R>L AND LIMITED GAIT MAKING PATIENT A FALL RISK. Rehabilitation Potential: Fair Anticipated Interventions Patient/Client Instruction: Educate patient on: Condition, Plan of Care and Risk Factors For the Purpose of:: To improve self management Therapeutic Exercise to Include: Strength training, Balance training, Gait and locomotor training and In an aquatic setting For the Purpose of:: To improve muscle performance and motor function, To increase tolerance to activity/condition/position, To improve ability of physical actions for home/community/work/leisure, To improve gait and locomotor functions, To improve balance, To improve safety with gait, To improve self management and To improve ability to perform tasks related to life management Text: Thank you for the opportunity to evaluate your patient. For Medicare and Medicare HMO plans, please review the plan of care and approve it. It will need to be FAXED BACK to us at [phone] for Medicare purposes. For Medicare only, by signing this I certify the plan of care. Please let me know if there are questions or concerns regarding this plan of care. Physician Signature: Date:
--- NOTE | 2025-03-28 11:39 | HP.PTDCSUM ---
Discharge Summary D/C summary: It has been my pleasure to treat AMOS Dickens RIOS referred by Dr. Zuly Blas DO, with the diagnosis of UNBALANCE AND RECENT FALL. for a total of 8 visit(s). Discharge Date: 03/28/25 Please see the following information for a summary of their discharge status. Subjective Subjective: PATIENT REPORTS SHE HAS SILVER SNEAKERS AND SHE PLANS TO CONTINUE ON HER OWN NOW IN THE POOL BECAUSE IT DEFINATELY HELPS HER BALANCE. Pain Right hip: Pain Intensity (Out of 10): 5 Overall Improvement % Improvement: 50 Objective Objective/Function: PATIENT WAS SEEN TODAY FOR RE-ASSESSMENT OF PROGRESS TOWARD THE SET PT GOALS AND THE NEED FOR FURTHER PHYSICAL THERAPY VS READINESS FOR DISCHARGE. UPON EXAM TODAY: STRENGTH: R HIP: 3+/5, KNEE EXT 4-/5, KNEE FLEX 4-/5, ANKLE 4-/5. L HIP 4/5, KNEE EXT 4/5, KNEE FLEX 4/5, ANKLE 4/5. TUG TIME: 19.[address] CANE INDEP'LY. 30 STS TEST: 7 WITH JAVID UE'S AND WB L LE > R LE. STEPS: ABLE TO ASCEND ONE AT A TIME LEADING WITH L FIRST AND DESCEND ONE AT A TIME LEADING WITH R FIRST WITH CANE AND NO HR SAFELY WITH GOOD BALANCE. Goals Goal 1:: PATIENT WILL HAVE INCREASED BLE AND CORE STRENGTH BY 1/2 GRADE OF ALL EFFECTED MUSCULATURE. Goal Progress: Goal Met Goal 2:: PATIENT WILL COMPLETE 8 STANDS WITH JAVID UE ASSIST IN 30 SECS TO DEMONSTRATE IMPROVED FUNCTIONAL STRENGTH Goal Progress: Progressing Goal 3:: PATIENT WILL COMPLETE TUG IN < 18 SECS TO DEMONSTRATE IMPROVED GAIT STABILITY Goal Progress: Progressing Goal 4:: PATIENT WILL BE ABLE TO NEGOTIATE STANDARD SIZE STEPS ONE AT A TIME WITH ONE HR AND CANE WITHOUT LIMITATION TO FEEL CONFIDENT GOING IN AND OUT OF THE HOUSE THROUGH HER GARAGE. Goal Progress: Goal Met Goal 5:: INDEP WATER EX PROGRAM TO COMPLETE MEMBER AT FACILITY OF CHOICE. Goal Progress: Goal Met Plan Plan: D/C D/C Information d/c sentence: If there are questions or concerns regarding this patient's physical therapy, please feel free to call me at [phone]. Thank you for the referral of this patient. Sincerely, Valerie Baker, PT, Cert MDT Balance/Gait/Functional tests Balance/Special Test Scores Lower Extremity Functional Score: 37 Improvement % Improvement: 50
== END 2025-03-28 19:00 | disposition home or self-care (01) ==
LOC: PT 11:00
PROVIDERS: PCP Family Medicine; Referring Provider Family Medicine; Visit Provider Family Medicine
DX: R42 Dizziness and giddiness (principal)
CPT/HCPCS: 97113; 97162; 97530

== ENCOUNTER → 2025-04-04 | Outpatient (CLI) | payer MEDICARE, SELFPAY ==
--- NOTE | 2025-04-04 09:51 | BI_ITS ---
EXAM: SCRN MAMM (CAD)W/JHONNY BILAT DATE: 04/04/2025 CLINICAL HISTORY: F, Age 79 y/o , SCREENING TECHNIQUE: Procedure Code: [id number] Modality: MG Procedure: SCRN MAMM (CAD)W/JHONNY BILAT COMPARISON: Prior exam(s) were compared FINDINGS: TISSUE DENSITY: There are scattered areas of fibroglandular density. Bilateral Breast Mammographic Findings: No significant masses, calcifications or other abnormalities are identified. BI/SCRN MAMM (CAD)W/JHONNY BILAT IMPRESSION: No mammographic evidence of malignancy. OVERALL FINAL ASSESSMENT BI-RADS 1: NEGATIVE. RECOMMENDATION: Routine annual follow-up in 1 Year Additional Recommendation none A letter with findings and recommendations will be mailed to the patient. Reading Location: [id number]
--- NOTE | 2025-04-04 09:55 | BD_ITS ---
PROCEDURE: DEXA BONE DENSITY STUDY 04/04/2025 REASON FOR EXAM: F, age 79 y/o . Patient is postmenopausal. TECHNIQUE: Procedure Code: BDDBD Modality: DX Procedure: DEXA BONE DENSITY STUDY FINDINGS: BMD and T-SCORES Lumbar spine: 0.802 g/cm2, T-score -2.2 Levels: L1 through L4 Left femoral neck: 0.511 g/cm2, T-score -3.0 Left total hip: 0.567 g/cm2, T-score -3.1 The World Health Organization has defined the following categories based on bone density: Normal bone density: T-score equal to or greater than -1.0 Osteopenia: T-score between -1.0 and -2.5 Osteoporosis: T-score equal to or less than -2.5 FRAX (or Comparable) Fracture Risk Assessment: 10 Year Probability of Fracture: Major Osteoporotic Fracture: 82% Hip Fracture: 80% (Note: FRAX is not to be reported in setting of normal range bone density, osteoporosis on DEXA, known history of osteoporosis, prior osteoporotic hip or vertebral fracture, or for any patient undergoing pharmacological treatment for bone loss.) The National Osteoporosis Foundation (NOF) recommends pharmacological treatment for patients with a FRAX 10-year risk of 3% or higher for a hip fracture, or 20% or higher for a major osteoporotic fracture, to prevent osteoporosis and reduce fracture risk. The patient does meet the pharmacological treatment recommendations for prevention of osteoporosis. BD/Dexa Bone Density Study IMPRESSION: OSTEOPOROSIS. Recommend follow-up in 1 year. Reading Location: [id number]
--- OUTSIDE RECORDS SUMMARY | 2025-04-04 10:12 | XMS RPT_ITS | CCD ---
Author Organization [facility] Care Team Providers Care Intelligence Clerk Name Role Phone Dr. Zuly Blas Primary Care Provider Dr. Tanya Brennan Attending Provider Dr. Kaushik Posada Referring Provider Dr. Zuly Blas Primary Care Provider [phone] Dr. Zuly Blas Referring Provider Dr. Gareth [...] CHASITY Referring Unavailable LIZZ KING Attending Unavailable ROOPA ZULY A Primary Care Unavailable ADEOLA, CHASITY Referring Unavailable Dr. Zuly lBas DO Primary Care Provider Dr. Reginaldo Cool MD Attending Provider Dr. Reginaldo Cool MD Referring Provider Dr. Zuly Blas DO Referring Provider Candace SCHUMACHER, Dr. Patel Attending Provider Roopa DO, Dr. Caruso Attending Provider [phone] Roopa DO, Dr. Caruso Primary Care Provider Roopa BREWSTER, Dr. Caruso Referring Provider Lisette Garcia Attending Provider Candace SCHUMACHER, Dr. Patel Attending Provider Malys, Zuly Primary Care Unavailable Malys, Zuly Attending Unavailable Malys, Zuly Referring Unavailable Malys, Zuly Attending Unavailable Malys, Zuly Primary Care Unavailable Malys, Zuly Referring Unavailable Malys, Zuly Attending Unavailable Malys, Zuly Primary Care Unavailable Malys, Zuly Primary Care Unavailable Malys, Zuly Attending Unavailable Malys, Zuly Referring Unavailable Malys, Zuly Attending Unavailable Malys, Zuly Primary Care Unavailable Malys, Zuly Primary Care Unavailable Reginaldo Cool Attending Unavailable Reginaldo Cool Referring Unavailable Malys, Zuly Primary Care Unavailable Malys, Zuly Attending Unavailable Malys, Zuly Referring Unavailable Malys, Zuly Primary Care Unavailable Lisette Lima Attending Unavailable Candace, Jorge Attending Unavailable Malys, Zuly Primary Care Unavailable Malys, Zuly Referring Unavailable Malys, Zuly Primary Care Unavailable Reginaldo Cool Attending Unavailable Candace, Jorge Attending Unavailable Malys, Zuly Primary Care Unavailable Allergies Allergy Classification Reported Allergen(s) Allergy Type Date of Onset Reaction(s) Facility (20 sources) Sulfonamides (Antibiotic); Translations: [SULFA (SULFONAMIDE ANTIBIOTICS)] Allergy to substance 5 Hives, GI Upset, Vomiting [facility] (16 sources) Propoxyphene; Translations: [PROPOXYPHENE HCL] Drug Allergy [address] [facility] (16 sources) Propoxyphene N-Acetaminophen; Translations: [PROPOXYPHENE N-ACETAMINOPHEN] Propensity to adverse reactions 5 GI Upset, Vomiting [facility] Work Phone: Medications Current Medications Medication Drug Class(es) Dates Sig (Normalized) Sig (Original) acetaminophen 500 mg oral tablet (4 sources) Start: 11-17-2023 take 2 tablets by mouth every eight hours Acetaminophen 500 mg Tablet Active 1000 mg PO EVERY 8 HOURS 0 0 November 17, 2023 12:00am ascorbic acid 500 mg oral tablet (4 sources) Vitamin C Start: 11-18-2023 take 1 tablet by mouth twice daily Ascorbic Acid (Vitamin C) 500 mg tablet Active 500 mg PO TWICE A DAY 60 2 November 18, 2023 12:00am 12 hr buPROPion hydrochloride 150 mg extended release oral tablet (11 sources) Aminoketone Start: 11-12-2023 take 1 tablet by mouth once daily Bupropion Hcl 150 mg tablet sustained-release 12 hr Active 150 mg PO DAILY November 12, 2023 12:00am depression/anxiety take 1 tablet by mouth once roxie y buPROPion XL (WELLBUTRIN XL) 150 mg 24 hr tablet Take 150 mg by mouth once daily. Active Calcium Carbonate / vitamin D3 (14 sources) CALCIUM CARBONAT E/VITAMIN D3 (CALCIUM + D ORAL) Take by mouth. Active CALCIUM CARBONAT E/VITAMIN D3 (CALCIUM + D ORAL) Take by mouth. 0 Active cholecalciferol 1.25 mg oral capsule (20 sources) Vitamin D Start: 01-24-2019 take 1 capsule by mouth every week Cholecalciferol (Vitamin D3) 50,000 UNIT capsule Active 34904 U PO EVERY WEEK January 24, 2019 12:00am supple ibuprofen 200 mg oral tablet (14 sources) Nonsteroidal Anti-inflammatory Drug Start: 07-29-2005 ADVIL 200 MG TAB as necessary 0 07/29/2005 Active levothyroxine sodium 0.112 mg oral tablet (20 sources) l-Thyroxine Start: 11-17-2024 take 1 tablet by mouth once daily Levothyroxine 112 mcg tablet Active 112 ug PO daily November 17, 2024 12:00am Start: 07-28-2023 End: 11-17-2024 take 1 tablet by mouth once daily Levothyroxine 100 mcg tablet Discontinued 100 ug PO DAILY July 28, 2023 12:00am November 17, 2024 9:06am hypothyroid Start: 07-09-2023 End: 07-28-2023 Levothyroxine 125 mcg [...] 9:08am liothyronine sodium 0.005 mg oral tablet (9 sources) l-Triiodothyronine Start: 07-09-2023 take 1 tablet by mouth once daily Liothyronine 5 mcg tablet Active 5 ug PO DAILY July 09, 2023 12:00am hypothyroid meloxicam 15 mg oral tablet (20 sources) Nonsteroidal Anti-inflammatory Drug Start: 11-17-2024 take 1 tablet by mouth once daily Meloxicam 15 mg tablet Active 15 mg PO daily November 17, 2024 12:00am Start: 06-12-2013 End: 11-18-2023 take 1 tablet by mouth once daily Meloxicam 15 MG tablet Discontinued 15 mg PO DAILY June 12, 2013 1:00am November 18, 2023 12:58pm arthritis/pain methocarbamol 500 mg oral tablet (4 sources) Muscle Relaxant Start: 12-25-2023 take 1 tablet by mouth three times daily Methocarbamol 500 mg tablet Active 500 mg PO THREE TIMES A DAY December 25, 2023 12:00am mirtazapine 45 mg oral tablet (20 sources) Start: 07-28-2023 take 1 tablet by mouth at bedtime Mirtazapine 45 mg tablet Active 45 mg PO AT BEDTIME July 28, 2023 12:00am depression/anxiety Start: 03-18-2014 End: 07-28-2023 take 3 tablets by mouth at bedtime Mirtazapine 15 MG tablet Discontinued 45 mg PO AT BEDTIME March 18, 2014 1:00am July 28, 2023 9:47am sleep Start: 03-18-2014 End: 07-28-2023 take 45 mg by mouth at bedtime Mirtazapine Discontinue d 45 MG PO AT BEDTIME March 18, 2014 1:00am July 28, 2023 9:47am Start: 09-05-2008 MIRTAZAPINE 15 MG TAB Take one(1) tablet daily at bedtime. 30 0 09/05/2008 Active multivitamin ORAL tablet (14 sources) take 2 tablets by mo uth once daily multivitamin ORAL tablet Take 2 tablets by mouth once daily. Active take 2 tablets by mouth once [place] multivitamin ORAL tablet Take 2 tablets by mouth once daily. 0 Active pantoprazole 40 mg delayed release oral tablet (4 sources) Proton Pump Inhibitor Start: 11-27-2023 take 1 [...] 01/20/2006 11/10/2023 Discontinued (Course of therapy completed) pravastatin sodium 10 mg oral tablet (20 sources) HMG-CoA Reductase Inhibitor Start: 01-24-2019 take 1 tablet by mouth at bedtime Pravastatin 10 MG tablet Active 10 mg PO AT BEDTIME January 24, 2019 12:00am cholesterol rivaroxaban 10 mg oral tablet (4 sources) Factor Xa Inhibitor Start: 11-17-2023 take 1 tablet by mouth at dinner Rivaroxaban (Xarelto) 10 mg Tablet Active 10 mg PO WITH DINNER 30 30 0 November 17, 2023 12:00am sertraline 100 mg oral tablet (20 sources) Serotonin Reuptake Inhibitor Start: 07-09-2023 Sertraline 100 mg tablet Active 150 mg PO DAILY July 09, 2023 9:07am depression Start: 07-09-2023 take 150 mg by mouth [...] ORAL) Take by mouth. 0 Active Vitamin B86-Rzcktev B1 1,000 -100 mg/mL solution (4 sources) Start: 02-12-2024 Vitamin B12-Vi tamin B1 1,000-100 mg/mL solution Active mL IM February 12, 2024 12:00am Unsure of dose Completed/Discontinued Medications Medication Drug Class(es) Dates Sig (Normalized) Sig (Original) acetaminophen 325 mg / HYDROcodone bitartrate 5 mg oral tablet (20 sources) Opioid Agonist Start: 06-11-2013 End: 06-14-2013 Hydrocodone-Acetami nophen 1 TABLET tablet Discontinued 1 {tbl} PO EVERY 4 HOURS NEEDED as needed for Pain 10 June 11, 2013 1:00am June 14, 2013 4:00pm Start: 06-11-2013 End: 06-14-2013 take 1 tablet by mouth every four hours as needed Hydrocodone-Acetaminophen Discontinued 1 TABLET PO EVERY 4 HOURS NEEDED June 11, 2013 1:00am June 14, 2013 4:00pm amoxicillin 875 mg / clavulanate 125 mg oral tablet (9 sources) Penicillin-class Antibacterial Start: 07-27-2023 End: 08-11-2023 Amoxicillin-Pot Clavulanate 875-125 mg tablet Discontinued 1 {tbl} PO TWICE A DAY 20 July 27, 2023 12:00am August 11, 2023 7:57am Start: 07-27-2023 End: 08-11-2023 take 1 tablet by mouth twice daily Amoxicillin-Pot Clavulanate Discontinued 1 TABLET PO TWICE A DAY July 27, 2023 12:00am August 11, 2023 7:57am atorvastatin 20 mg oral tablet (20 sources) HMG-CoA Reductase Inhibitor Start: 02-06-2017 End: 01-10-2019 take 1 tablet by mouth at bedtime Atorvastatin 20 MG tablet Discontinued 20 mg PO AT BEDTIME February 06, 2017 12:00am January 10, 2019 1:09pm azithromycin 250 mg oral tablet (13 sources) Macrolide Antimicrobial Start: 08-04-2022 End: 07-09-2023 take 2-5 tablets by mouth once daily Azithromycin 250 mg tablet Discontinued 0 PO .COMPLEX 6 0 August 04, 2022 12:00am July 09, 2023 9:05am take 500 mg today (day 1), then 250 mg for 4 days (days 2-5) PO docusate sodium 50 mg / sennosides, care home 8.6 mg oral tablet (4 sources) Start: 11-17-2023 End: 11-17-2024 Sennosides-Docusat e Sodium (Stimulant Laxative Plus) 8.6-50 mg Tablet Discontinued 2 {tbl} PO TWICE DAILY NEEDED as needed for Constipation 0 0 November 17, 2023 12:00am November 17, 2024 9:07am doxycycline monohydrate 100 mg oral capsule (7 sources) Tetracycline-class Drug Start: 08-05-2023 End: 11-12-2023 take 1 capsule by mouth twice daily Doxycycline Monohydrate 100 mg capsule Discontinued 100 mg PO TWICE A DAY 20 0 August 05, 2023 12:00am November 12, 2023 5:06pm ferrous sulfate 325 mg oral tablet (4 sources) Start: 11-18-2023 End: 11-17-2024 take 1 tablet by mouth once daily Ferrous Sulfate (Ferosul) 325 mg (65 mg iron) tablet Discontinued 325 mg PO DAILY November 18, 2023 12:00am November 17, 2024 9:06am LORazepam 1 mg oral tablet (20 sources) Benzodiazepine Start: 11-17-2023 End: 12-03-2023 take 0.5 mg by mouth at bedtime as needed for sleep Lorazepam 1 mg tablet Discontinued 0.5 mg PO AT BEDTIME as needed for sleep 10 7 0 November 26, 2023 11:55am December 02, 2023 12:00am December 03, 2023 12:04am Start: 12-20-2012 End: 11-17-2023 take 1 tablet by mouth at bedtime Lorazepam 1 MG tablet Discontinued 1 mg PO AT BEDTIME June 11, 2013 1:00am November 17, 2023 2:03pm sleep methylPREDNISolone 4 mg oral tablet (13 sources) Corticosteroid Start: 08-04-2022 End: 08-10-2022 take 1 tablet by mouth once Methylprednisolone (Medrol (Melvin)) 4 mg tablets,dose pack Discontinued 4 mg PO per package directions 21 6 0 August 04, 2022 12:00am August 09, 2022 12:00am August 10, 2022 12:04am metroNIDAZOLE 500 mg oral tablet (7 sources) Nitroimidazole Antimicrobial Start: 08-05-2023 End: 11-12-2023 take 1 tablet by mouth three times daily Metronidazole 500 mg tablet Discontinued 500 mg PO THREE TIMES A DAY 30 0 August 05, 2023 12:00am November 12, 2023 5:07pm stop previously prescribed amoxicillin/clavulana te (Augmentin) omeprazole 20 mg delayed release oral capsule (20 sources) Proton Pump Inhibitor Start: 06-11-2013 End: 11-27-2023 take 2 capsules by mouth twice daily Omeprazole 20 MG capsule Discontinued 40 mg PO TWICE A DAY June 11, 2013 1:00am November 27, 2023 1:45pm GERD Start: 06-11-2013 take 40 mg by mouth twice roxie y Omeprazole Active 40 MG PO TWICE A DAY June 11, 2013 1:00am Start: 06-11-2013 take 40 mg by mouth once daily Omeprazole Active 40 MG PO DAILY June 11, 2013 12:00am Start: 09-05-2008 omeprazole mag nesium(PRILOSEC OTC 20 MG TAB) Take two tablets daily. 0 09/05/2008 Active oxyCODONE hydrochloride 5 mg oral tablet (8 sources) Opioid Agonist Start: 11-27-2023 End: 12-04-2023 take 1 tablet by mouth every six hours as needed for pain Oxycodone 5 mg tablet Discontinued 5 mg PO EVERY 6 HOURS as needed for pain 28 7 0 November 27, 2023 December 03, 2023 12:00am December 04, 2023 12:06am Closed fracture of right hip Start: 11-17-2023 End: 02-12-2024 Oxycodone 5 mg Tablet Discon tinued 2.5 mg PO EVERY 4 HOURS NEEDED as needed for Pain Score 4-10 7 3 0 November 17, 2023 February 12, 2024 10:52am Closed intertrochanteric fracture of right femur Closed fracture of right hip Oxycodone 2.5 mg for moderate pain and 5 mg for severe pain respectively. microencapsulated potassium chloride 20 meq extended release oral tablet (4 sources) Start: 11-17-2023 End: 11-17-2024 take 2 tablets by mouth once daily at mealtime Potassium Chloride 20 mEq Tablet,Er Particles/Crystals Discontinued 40 meq PO DAILY WITH MEALS 14 7 0 November 17, 2023 12:00am November 17, 2024 9:07am Problems Active Problems Problem Classification Problem Date Documented Da te Episodic/Chronic Abdominal hernia (17 sources) Hiatal hernia; Translations: [Diaphragmatic hernia without obstruction or gangrene] Onset: 4 08-11-2023 Episodic Acute bronchitis (13 sources) Acute bronchitis; Translations: [Acute bronchitis, unspecified] 08-04-2022 Episodic Cancer of colon (14 sources) Malignant tumor of ascending colon; Translations: [Malignant neoplasm of ascending colon] Onset: 1 12-03-2010 Chronic Cancer of colon (20 sources) History of malignant neoplasm of colon; Translations: [Personal history of other malignant neoplasm of large intestine] Onset: 2 07-09-2023 Episodic Conditions associated with dizziness or vertigo (1 source) Dizziness and giddiness; Translations: [Dizziness and giddiness] Onset: Episodic Disorders of lipid metabolism (3 sources) Hyperlipidemia; Translations: [Hyperlipidemia, unspecified] Onset: 4 10-28-2023 Chronic Esophageal disorders (19 sources) Gastroesophageal reflux disease without esophagitis; Translations: [Gastro-esophageal reflux disease without esophagitis] Onset: 1 10-28-2023 Chronic Mood disorders (2 sources) Depressive disorder; Translations: [Depression, unspecified depression type] 10-28-2023 Chronic Mood disorders (1 source) Mood disorders; Translations: [Depression, unspecified depression type] Onset: 4 Non-Hodgkin`s 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 sources) 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; 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, lymph nodes of multiple sites] Onset: 5 10-22-2023 Chronic Open wounds of extremities (20 sources) Cat bite - wound; Translations: [Open bite, left lower leg, initial encounter] 07-27-2023 Episodic Osteoporosis (1 source) Age-related osteoporosis without current pathological fracture; Translations: [Age-related osteoporosis without current pathological fracture] Onset: 5 Chronic Other acquired deformities (5 sources) Leg length inequality; Translations: [Unequal limb length (acquired), unspecified site] 06-02-2024 Episodic Other connective tissue disease (20 sources) History of osteoporosis; Translations: [Personal history of other diseases of the musculoskeletal system and connective tissue] 04-18-2013 Episodic Other connective tissue disease (13 sources) H/O: arthritis; Translations: [Personal history of other diseases of the musculoskeletal system and connective tissue] 12-08-2022 Episodic Other diseases of veins and lymphatics (7 sources) Peripheral venous insufficiency; Translations: [Venous insufficiency (chronic) (peripheral)] 08-06-2023 Episodic Other diseases of veins and lymphatics (3 sources) Venous insufficiency (chronic) (peripheral); Translations: [Venous (peripheral) insufficiency, unspecified] 08-06-2023 Episodic Other gastrointestinal disorders (20 sources) History of gastroesophageal reflux disease; Translations: [Personal history of other diseases of the digestive system] 04-18-2013 Episodic Other gastrointestinal disorders (5 sources) Personal history of other diseases of the digestive system; Translations: [Personal history of other diseases of digestive system] 07-09-2023 Episodic Other gastrointestinal disorders (2 sources) Esophageal dysphagia; Translations: [Other dysphagia] 10-28-2023 Episodic Other injuries and conditions due to external causes (16 sources) Foreign body in ear; Translations: [Foreign body in ear, unspecified ear, initial encounter] 03-22-2022 Episodic Other lower respiratory disease (20 sources) History of chronic obstructive airway disease; Translations: [Personal history of other diseases of the respiratory system] 04-18-2013 Episodic Other lower respiratory disease (3 sources) Personal history of other diseases of the respiratory system; Translations: [Personal history of other diseases of respiratory system] 08-06-2023 Episodic Other non-traumatic joint disorders (13 sources) Ankle pain; Translations: [Pain in left ankle and joints of left foot] 12-08-2022 Episodic Other screening for suspected conditions (not mental disorders or infectious disease) (1 source) Encounter for screening mammogram for malignant neoplasm of breast; Translations: [Encounter for screening mammogram for malignant neoplasm of breast] Onset: Episodic Residual codes; unclassified (7 sources) Tobacco user; Translations: [Tobacco use] 08-06-2023 Episodic Residual codes; unclassified (3 sources) Tobacco use; Translations: [Tobacco use disorder] 08-06-2023 Episodic Screening and history of mental health and substance abuse codes (20 sources) H/O: depression; Translations: [Personal history of other mental and behavioral disorders] 04-18-2013 Episodic Substance-related disorders (20 sources) Tobacco dependence syndrome; Translations: [Nicotine dependence, unspecified, uncomplicated] Onset: 4 04-18-2013 Chronic Thyroid disorders (20 sources) Acquired hypothyroidism; Translations: [Hypothyroidism, unspecified] Onset: 7 04-18-2013 Chronic Past or Other Problems Problem Classification Problem Date Documented Da te Episodic/Chronic Deficiency and other anemia (15 sources) Iron deficiency anemia; Translations: [Iron deficiency anemia, unspecified] Onset: 1 09-16-2010 Episodic Deficiency and other anemia (1 source) Other iron deficiency anemias; Translations: [Other iron deficiency anemia] Onset: 1 Episodic Fracture of neck of femur (hip) (10 sources) Closed intertrochanteric fracture; Translations: [Displaced intertrochanteric fracture of right femur, initial encounter for closed fracture] Onset: 5 11-26-2023 Episodic Gastritis and duodenitis (14 sources) Bile-induced gastritis; Translations: [Other gastritis without bleeding] Onset: 6 12-28-2015 Episodic Nausea and vomiting (10 sources) Postoperative nausea and vomiting; Translations: [Nausea with vomiting, unspecified] Onset: 4 11-10-2023 Episodic Other gastrointestinal disorders (1 source) Other dysphagia; Translations: [Esophageal dysphagia] Onset: 4 Episodic Other nutritional; endocrine; and metabolic disorders (15 sources) Weight loss; Translations: [Abnormal weight loss] Onset: 1 09-16-2010 Episodic Other nutritional; endocrine; and metabolic disorders (1 source) Abnormal weight loss; Translations: [Loss of weight] Onset: 1 Episodic Residual codes; unclassified (14 sources) Family history of malignant neoplasm of gastrointestinal tract; Translations: [Family history of malignant neoplasm of digestive organs] Onset: 1 09-16-2010 Episodic Residual codes; unclassified (1 source) Other specified postprocedural states; Translations: [PONV (postoperative nausea and vomiting)] Onset: 4 Episodic Results Test Name Value Interpretation Reference Range Facility CBC W/Diff, Automatedon 10-2 Absolute Lymph 1.38 X10 3/uL Normal 0.83-4.51 [facility] Comment on above: Performed By: #### L 500.4100, L506.1001, L503.6150, L503.0106, L501.9520, L100.0100, L500.4050, [id number] #### [facility] [address] [place], [address] Absolute Neut 3.4 X10 3/uL Normal 2.0-7.7 [facility] Comment on above: Performed By: #### L 500.4100, L506.1001, L503.6150, L503.0106, L501.9520, L100.0100, L500.4050, L501.07649 #### [facility] [address] [place], [address] Basophils/100 WBC (Bld) 1.1 % High 0-1 [facility] Comment on above: Performed By: #### L 500.4100, L506.1001, L503.6150, L503.0106, L501.9520, L100.0100, L500.4050, [id number] #### [facility] [address] [place], [address] Eosinophils/100 WBC (Bld) 4.5 % Normal 0-5 [facility] Comment on above: Performed By: #### L 500.4100, L506.1001, L503.6150, L503.0106, L501.9520, L100.0100, L500.4050, L501.02551 #### [facility] [address] [place], [address] Erythrocyte distribution width (RBC) [Ratio] 14.8 % High 11.6-14.6 [facility] Comment on above: Performed By: #### L 500.4100, L506.1001, L503.6150, L503.0106, L501.9520, L100.0100, L500.4050, [id number] #### [facility] [address] [place], [address] Hematocrit (Bld) [Volume fraction] 39.5 % Normal 37-47 [facility] Comment on above: Performed By: #### L 500.4100, L506.1001, L503.6150, L503.0106, L501.9520, L100.0100, L500.4050, L501.62792 #### [facility] [address] [place], [address] Hemoglobin (Bld) [Mass/Vol] 13.3 g/dL Normal 12.0-15.0 [facility] Comment on above: Performed By: #### L 500.4100, L506.1001, L503.6150, L503.0106, L501.9520, L100.0100, L500.4050, L501.22949 #### [facility] [address] [place], [address] IG% 0.500 Normal 0.0-0.9 [facility] Comment on above: Result Comment: IG% - Immature Granulocytes (promyelocytes, myelocytes and metamyelocytes) > 1% indicates that a LEFT SHIFT is Present. Performed By: #### L 500.4100, L506.1001, L503.6150, L503.0106, L501.9520, L100.0100, L500.4050, L501.32635 #### [facility] [address] [place], [address] Lymphocytes/100 WBC (Bld) 24.7 % Normal 19-41 [facility] Comment on above: Performed By: #### L 500.4100, L506.1001, L503.6150, L503.0106, L501.9520, L100.0100, L500.4050, [id number] #### [facility] [address] [place], [address] MCH (RBC) [Entitic mass] 31.1 pg Normal 27.0-32.0 [facility] Comment on above: Performed By: #### L 500.4100, L506.1001, L503.6150, L503.0106, L501.9520, L100.0100, L500.4050, L501.34240 #### [facility] [address] [place], [address] MCHC (RBC) [Mass/Vol] 33.7 g/dL Normal 32-36 [facility] Comment on above: Performed By: #### L 500.4100, L506.1001, L503.6150, L503.0106, L501.9520, L100.0100, L500.4050, L501.09306 #### [facility] [address] [place], [address] MCV (RBC) [Entitic vol] 92.5 fL Normal 81-99 [facility] Comment on above: Performed By: #### L 500.4100, L506.1001, L503.6150, L503.0106, L501.9520, L100.0100, L500.4050, L501.00389 #### [facility] [address] [place], [address] Monocytes/100 WBC (Bld) 8.1 % Normal 0-10 [facility] Comment on above: Performed By: #### L 500.4100, L506.1001, L503.6150, L503.0106, L501.9520, L100.0100, L500.4050, L501.80659 #### [facility] [address] [place], [address] Neutrophils/100 WBC (Bld) 61.1 % Normal 47-70 [facility] Comment on above: Performed By: #### L 500.4100, L506.1001, L503.6150, L503.0106, L501.9520, L100.0100, L500.4050, L501.02817 #### [facility] [address] [place], [address] Nucleated RBC (Bld) [#/Vol] 0 10*3/uL Normal 0-5 [facility] [facility] [place] Comment on above: Performed By: #### L 500.4100, L506.1001, L503.6150, L503.0106, L501.9520, L100.0100, L500.4050, L501.68334 #### [facility] [place] Laboratory [address] [place], [address] Platelet mean volume (Bld) [Entitic vol] 11.4 fL Normal 6.2-12.0 [facility] [place] Comment on above: Performed By: #### L 500.4100, L506.1001, L503.6150, L503.0106, L501.9520, L100.0100, L500.4050, L501.00388 #### [facility] [place] Laboratory [address] [place], [address] Platelets (Bld) [#/Vol] 213 10*3/uL Normal 150-450 [facility] [place] Comment on above: Performed By: #### L 500.4100, L506.1001, L503.6150, L503.0106, L501.9520, L100.0100, L500.4050, L501.86305 #### [facility] [place] Laboratory [address] [place], [address] RBC (Bld) [#/Vol] 4.27 10*6/uL Normal 4.2-5.4 [facility] Comment on above: Performed By: #### L 500.4100, L506.1001, L503.6150, L503.0106, L501.9520, L100.0100, L500.4050, L501.05367 #### [facility] [place] Laboratory [address] [place], [address] RDW SD 50.4 fl High 35.1-43.9 [facility] [place] Comment on above: Performed By: #### L 500.4100, L506.1001, L503.6150, L503.0106, L501.9520, L100.0100, L500.4050, L501.68264 #### [facility] [place] Laboratory [address] [place], [address] WBC (Bld) [#/Vol] 5.6 10*3/uL Normal 4.4-11.0 [facility] Comment on above: Performed By: #### L 500.4100, L506.1001, L503.6150, L503.0106, L501.9520, L100.0100, L500.4050, L501.57939 #### [facility] Laboratory [address] [place], [address] Comprehensive Metabolic [facility] 02-07-2025 Albumin [Mass/Vol] 4.1 g/dL Normal 3.4-4.8 [facility] Comment on above: Performed By: #### L 500.4100, L506.1001, L503.6150, L503.0106, L501.9520, L100.0100, L500.4050, L501.30162 ####[facility] [place] [address] [place], [address] Albumin/Globulin [Mass ratio] 1.3 {ratio} Normal 0.9-2.4 [facility] [place] Comment on above: Performed By: #### L 500.4100, L506.1001, L503.6150, L503.0106, L501.9520, L100.0100, L500.4050, L501.83377 ####[facility] [place] [address] [place], [place], [phone] ALK PHOS 158 U/L High 35-104 [facility] [place] Comment on above: Performed By: #### L 500.4100, L506.1001, L503.6150, L503.0106, L501.9520, L100.0100, L500.4050, L501.77909 ####[facility] [address] [place], [place], [phone] ALT [Catalytic activity/Vol] 18 U/L Normal <=34 [facility] [place] Comment on above: Performed By: #### L 500.4100, L506.1001, L503.6150, L503.0106, L501.9520, L100.0100, L500.4050, L501.30730 ####[facility] [place] [address] [place], [address] AST [Catalytic activity/Vol] 30 U/L Normal <=31 [facility] [place] Comment on above: Performed By: #### L 500.4100, L506.1001, L503.6150, L503.0106, L501.9520, L100.0100, L500.4050, L501.63089 ####[facility] [place] [address] [place], [place], [phone] Bilirubin [Mass/Vol] 0.35 mg/dL Normal 0.00-1.30 [facility] Comment on above: Performed By: #### L 500.4100, L506.1001, L503.6150, L503.0106, L501.9520, L100.0100, L500.4050, L501.14819 ####[facility] [address] [place], [place], [phone] BUN/CRE 11.5 RATIO Normal 10-20 [facility] [place] Comment on above: Performed By: #### L 500.4100, L506.1001, L503.6150, L503.0106, L501.9520, L100.0100, L500.4050, L501.62047 ####[facility] [place] [address] [place], [address] Calcium [Mass/Vol] 9.5 mg/dL Normal 7.6-11.0 [facility] Comment on above: Performed By: #### L 500.4100, L506.1001, L503.6150, L503.0106, L501.9520, L100.0100, L500.4050, L501.59135 ####[facility] [place] [address] [place], [address] Chloride [Moles/Vol] 98 mmol/L Normal 98-108 [facility] Comment on above: Performed By: #### L 500.4100, L506.1001, L503.6150, L503.0106, L501.9520, L100.0100, L500.4050, L501.29935 ####[facility] [place] [address] [place], [address] CO2 [Moles/Vol] 25.5 mmol/L Normal 21.0-32.0 [facility] [place] Comment on above: Performed By: #### L 500.4100, L506.1001, L503.6150, L503.0106, L501.9520, L100.0100, L500.4050, L501.35366 ####[facility] [place] [address] [place], [address] Creatinine [Mass/Vol] 0.85 mg/dL Normal 0.70-1.20 [facility] Comment on above: Performed By: #### L 500.4100, L506.1001, L503.6150, L503.0106, L501.9520, L100.0100, L500.4050, L501.02600 ####[facility] [place] [address] [place], [address] GAP 9 Normal 5-15 [facility] [place] Comment on above: Performed By: #### L 500.4100, L506.1001, L503.6150, L503.0106, L501.9520, L100.0100, L500.4050, L501.32345 ####[facility] [place] [address] [place], [place], [phone]) GFR/1.73 sq M.predicted among non-blacks MDRD (S/P/Bld) [Vol rate/Area] 69 mL/min/{1.73_m2} Normal >60 [facility] [place] Comment on above: Result Comment: mL/m in/1.73m2 CKD-EPI Creatinine Equation (2020) Performed By: #### L 500.4100, L506.1001, L503.6150, L503.0106, L501.9520, L100.0100, L500.4050, L501.68421 ####[facility] [place] [address] [place], [place], [phone] Globulin (S) [Mass/Vol] 3.2 g/dL Normal 2.2-4.2 [facility] Comment on above: Performed By: #### L 500.4100, L506.1001, L503.6150, L503.0106, L501.9520, L100.0100, L500.4050, L501.79252 ####[facility] [address] [place], [place], [phone] Glucose [Mass/Vol] 90 mg/dL Normal 70-99 [facility] Comment on above: Performed By: #### L 500.4100, L506.1001, L503.6150, L503.0106, L501.9520, L100.0100, L500.4050, L501.83640 ####[facility] [place] [address] [place], [phone]) Potassium [Moles/Vol] 4.4 mmol/L Normal 3.3-5.1 [facility] Comment on above: Performed By: #### L 500.4100, L506.1001, L503.6150, L503.0106, L501.9520, L100.0100, L500.4050, L501.30821 ####[facility] [address] [place], [address] Sodium [Moles/Vol] 132 mmol/L Low 133-145 [facility] Comment on above: Performed By: #### L 500.4100, L506.1001, L503.6150, L503.0106, L501.9520, L100.0100, L500.4050, L501.85356 ####[facility] [address] [place], [address] T PROT 7.2 g/dL Normal 5.9-8.4 [facility] [place] Comment on above: Performed By: #### L 500.4100, L506.1001, L503.6150, L503.0106, L501.9520, L100.0100, L500.4050, L501.62017 ####[facility] [place] [address] [place], [address] Urea nitrogen [Mass/Vol] 10 mg/dL Normal 4-19 [facility] [place] Comment on above: Performed By: #### L 500.4100, L506.1001, L503.6150, L503.0106, L501.9520, L100.0100, L500.4050, L501.77878 ####[facility] [place] [address] [place], [address] Free T3on 02-07-2025 Free T3 [Mass/Vol] 2.5 pg/mL Normal 2.18-3.98 [facility] Comment on above: Performed By: #### L 500.4100, L506.1001, L503.6150, L503.0106, L501.9520, L100.0100, L500.4050, L501.85396 ####[facility] [address] [place], [address] Inital Evaluation (1) - PTon 02-07-2025 Inital Evaluation (1) - PT [facility] Physical Therapy [facility] [address] [place] [address] / REHABILITATION SERVICES INITIAL EVALUATION MR#: [id number] Acct: [id number] Name: SONIA NOBLE Rep #: [id number] : 1945 79 From: Valerie Baker PT, Cert. MDT Referring Dr.: Dr. Zuly Blas DO Status: REG R CR Insurance: [facility] MEDICARE S[employer]IOR [employer] SELF PAY INSURANCE Patient's Visit Information Visit Information Visit Information: SONIA NOBLE is a 79 year old F referred to Physical Therapy by Dr. Zuly Blas DO with a diagnosis of UNBALANCE AND RECENT FALL.. Date of Evaluation: 02/07/25 Physical Therapist: Valerie Baker PT, Cert MDT Visit Plan Frequency: 2x /Week Duration: 4-6 Weeks Plan: AQUATIC THERAPY 2X'S A WK X 6-8 WKS FOR GAIT AND BALANCE TRAINING, CORE AND JAVID LE STRENGTHENING, STAIR TRAINING, HEP AND INDEP WATER EX PROGRAM INSTRUCTION. Subjective Subjective: THIS PATIENT REPORTS ABOUT 6 WKS AGO SHE TRIPPED OVER SOMETHING IN THE LIVING ROOM AND SHE COULDN'T GET HER BALANCE AND FELL TO THE FLOOR. SHE STATES SHE WAS STUCK AND HER GRANDSON HAD TO HELP HER UP. SHE STATES SHE FELL BACKWARDS WHEN SHE TRIPPED OVER THE [email or web address] [facility] [place]. SHE STATES HER GRANDSON LIVES WITH HER SO HE WAS ALREADY THERE. SHE DENIES INJURING HERSELF IN THE FALL AND STATES SHE DID NOT GO TO THE HOSPITAL OR DOCTOR AFTER THE FALL. SHE REPORTS THIS IS THE ONLY FALL SHE HAS HAD IN THE PAST YEAR. SHE REPORTS SHE HAS BEEN USING A CANE FOR ABOUT A YEAR AND SHE USES WHEN SHE LEAVES HER HOME BUT SHE DOESN'T USE IT IN HER HOME. SHE REPORTS SHE FEELS SAFER WITH THE CANE WHEN SHE IS OUT AND IT HELPS HER R HIP PAIN. R HIP PAIN RANGES 0-6/10. SHE REPORTS SHE GETS A SHARP PAIN IN HER R HIP IF SHE MOVES THE WRONG WAY BUT IT DOESN'T HURT ALL THE TIME. SHE STATES HER IS MORE AFRAID OF HER FALLING THAN SHE IS BUT SHE REALIZES THAT SHE SHOULD PROBABLY BE HERE TOO TO WORK ON HER BALANCE. SHE REPORTS SHE DID AQUA THERAPY LAST YEAR FOR HER HIP PAIN AND SHE CONTINUED IT FOR AWH[facility] BUT SHE DIDN'T FEEL SAFE BECAUSE OF THE OTHER MEMBERS. SHE WISHES SHE COULD HAVE CONTINUED BECAUSE SHE FEELS LIKE IT WAS HELPING HER BALANCE. SHE REPORTS SHE FEELS SAFEST IN THE WATER, IT DOESN'T HURT HER HIP AND IT HELPS HER BALANCE. PATIENT DENIES LOSS OF BOWEL AND BLADDER CONTROL. SHE DOES HAVE INTERMITTENT TINGLING IN JAVID TOES. GOES IN/OUT FROM DOOR BECAUSE THERE IS ONLY ONE STEP AND IT IS SHORTER THAN IN GARAGE BUT NO HANDRAIL - LEADS UP WITH L LEG, GOES DOWN WITH R LEG WITH CANE. PMH/Recent major surgery: Closed intertrochanteric fracture of right hip - 1 year ago due to fall in bedroom. Venous (peripheral) insufficiency Tobacco abuse Puncture wound of left leg excluding thigh Wears hearing aid Loss of hearing Wears dentures Open wound Cat bite of left lower leg Smoking hx COPD (chronic obstructive pulmonary disease) Back problem Diarrhea GERD (gastroesophageal reflux disease) Depression with anxiety Arthritis History of back problems History of colon cancer History of thyroid cancer History of partial thyroidectomy History of colectomy History of hysterectomy Objective Objective: THIS PATIENT AMBULATES INDEP'LY INTO PT LIMPING ON R LE WITH A STRAIGHT CANE IN HER L UE WITH SLOW STEADY GAIT PATTERN, FLEXED POSTURE AND NO LOB. SHE HAS INCREASED KYPHOSIS,, INCREASED TRUNK FLEXION AND WALKS ON BENT KNEES. NEURO: JAVID LE'S GROSSLY INTACT. STRENGTH: R HIP: 3-/5, KNEE EXT 3+/5, KNEE FLEX 3+/5, ANKLE 3+/5. L HIP 4-/5, KNEE EXT 4-/5, KNEE FLEX 4-/5, ANKLE 4-/5. TUG TIME: 30.[address] CANE INDEP'LY. 30 STS TEST: 4 WITH JAVID UE'S AND WB L LE > R LE AND PROVOKES MILD SOB. OTHER: PATIENT REPORTS SHE DROVER HERSELF HERE TO PT TODAY. Balance/Special Test Scores Lower Extremity Functional Score: 27 Goals Goal 1:: PATIENT WILL HAVE INCREASED BLE AND CORE STRENGTH BY 1/2 GRADE OF ALL EFFECTED MUSCULATURE. Goal Time Frame: 4-6 Weeks Goal 2:: PATIENT WILL COMPLETE 8 STANDS WITH JAVID UE ASSIST IN 30 SECS TO DEMONSTRATE IMPROVED FUNCTIONAL STRENGTH Goal Time Frame: 4-6 Weeks Goal 3:: PATIENT WILL COMPLETE TUG IN < 18 SECS TO DEMONSTRATE IMPROVED GAIT STABILITY Goal Time Frame: 4-6 Weeks Goal 4:: PATIENT WILL BE ABLE TO NEGOTIATE STANDARD SIZE STEPS ONE AT A TIME WITH ONE HR AND CANE WITHOUT LIMITATION TO FEEL CONFIDENT GOING IN AND OUT OF THE HOUSE THROUGH HER GARAGE. Goal Time Frame: 6-8 Weeks Goal 5:: INDEP WATER EX PROGRAM TO COMPLETE MEMBER AT FACILITY OF CHOICE. Goal Time Frame: 6-8 Weeks Rehabilitation Potential Physical Therapy Diagnosis: POOR POSTURE AND CORE STRENGTH WITH JAVID LE WEAKNESS R>L AND LIMITED GAIT MAKING PATIENT A FALL RISK. Rehabilitation Potential: Fair Anticipated Interventions Patient/Client Instruction: Educate patient on: Condition, Plan of Care and R (more content not included)... Normal [facility] Ironon 02-07-2025 Iron [Mass/Vol] 80 ug/dL Normal 50-170 [facility] Comment on above: Performed By: #### L 500.4100, L506.1001, L503.6150, L503.0106, L501.9520, L100.0100, L500.4050, L501.09961 ####[facility] [address] [place], [place], [phone] Lipid Profileon 02-07-2025 CHOL:HDL 2.98 Normal [facility] Comment on above: Performed By: #### L 500.4100, L506.1001, L503.6150, L503.0106, L501.9520, L100.0100, L500.4050, L501.89592 ####[facility] [address] [place], [place], [phone] Cholesterol [Mass/Vol] 164 mg/dL Normal <=200 [facility] Comment on above: Result Comment: Chol esterol level, Desirable <200 mg/dL Borderline high cholesterol 200-239 mg/dL High cholesterol >=240 mg/dL Recommendations of the NCEP Adult Treatment Panel for the following risk-cutoff thresholds for the [place] population. Performed By: #### L 500.4100, L506.1001, L503.6150, L503.0106, L501.9520, L100.0100, L500.4050, L501.32224 ####[facility] [address] [place], [place], [phone] Cholesterol in HDL [Mass/Vol] 55 mg/dL Normal [facility] Comment on above: Result Comment: Nalini onal Cholesterol Education Program (NCEP) guidelines: <40 mg/dL: Low HDL-cholesterol (major risk factor for CHD) >= 60 mg/dL: High HDL-cholesterol (negative risk factor for CHD) HDL-cholesterol is affected by a number of factors, e.g. smoking, exercise, hormones, sex and age. Performed By: #### L 500.4100, L506.1001, L503.6150, L503.0106, L501.9520, L100.0100, L500.4050, L501.91194 ####[facility] [address] [place], [place], [phone] Cholesterol in LDL [Mass/Vol] 91 mg/dL Normal [facility] Comment on above: Result Comment: Bord sgekzy=764-211 mg/dL Higher Nwkw=698 mg/dL or greater Robertson Equation 2020 for LDL-C Performed By: #### L 500.4100, L506.1001, L503.6150, L503.0106, L501.9520, L100.0100, L500.4050, L501.71053 ####[facility] [place] [address] [place], [place], [phone]) Cholesterol in VLDL [Mass/Vol] 19 mg/dL Normal 5-40 [facility] [place] Comment on above: Performed By: #### L 500.4100, L506.1001, L503.6150, L503.0106, L501.9520, L100.0100, L500.4050, L501.93049 ####[facility] [address] [place], [address] Triglyceride [Mass/Vol] 97 mg/dL Normal [facility] Comment on above: Result Comment: The drugs N-Acetylcysteine and Metamizole may falsely depress this assay. Normal range: <150 mg/dL Borderline High: 150-199 mg/dL High: 200-499 mg/dL Very High: >500 mg/dL Performed By: #### L 500.4100, L506.1001, L503.6150, L503.0106, L501.9520, L100.0100, L500.4050, L501.19613 ####[facility] [address] [place], [place], [phone] Thyroid Stim Hormone (TSH)on 02-07-2025 TSH 4.330 uIU/mL High 0.300-4.200 [facility] [place] Comment on above: Performed By: #### L 500.4100, L506.1001, L503.6150, L503.0106, L501.9520, L100.0100, L500.4050, L501.64992 ####[facility] [address] [place], [address] Vitamin B12on 02-07-2025 Cobalamin (Vitamin B12) [Mass/Vol] 545 pg/mL Normal 180-914 [facility] [place] Comment on above: Performed By: #### L 500.4100, L506.1001, L503.6150, L503.0106, L501.9520, L100.0100, L500.4050, L501.09023 ####[facility] [address] [place], [address] Vitamin D,25 Hydroxyon 02-07 Vitamin D 25-OH 73.6 ng/mL Normal 30-100 [facility] [place] Comment on above: Result Comment: Queta min D Status Deficiency: <20 ng/mL (50nmol/L) Insufficiency: 20-30 ng/mL (50-75 nmol/L) Sufficiency: 30-100 ng/mL (75-250 nmol/L) Toxicity: >100 ng/mL (>250 nmol/L) Performed By: #### L 500.4100, L506.1001, L503.6150, L503.0106, L501.9520, L100.0100, L500.4050, L501.35679 ####[facility] [address] [facility] [place], [address] HIP, UNI W/ Pelvis 2-3 Views on 11-17-2024 HIP, UNI W/ Pelvis 2-3 Views [facility] Imaging Services [address] [place] [address] HIP, UNI W/ Pelvis 2-3 Views MR#: [id number] Acct: [id number] Name: SONIA NOBLE Rep #: [id number] : 1945 F 79 From: Clint Rodas PCP: Dr. Zuly Blas, DO Status: DEP AMB Study: HIP, UNI W/ Pelvis 2-3 Views Date of Exam: 11/04 Exam# [id number] Ordering Dr: Lisette Lima PROCEDURE: HIP, UNI W/ PELVIS 2-3 VIEWS 11/17/2024 REASON FOR EXAM: HIP FRACTURE, 1 YEAR FOLLOW UP TECHNIQUE: HIP, UNI W/ PELVIS 2-3 VIEWS COMPARISON: Right hip and pelvis study of 06/02/2024. RAD/HIP, UNI W/ Pelvis 2-3 Views IMPRESSION: Generalized osteopenia is seen. Stable alignment of the old right inferior ramus fracture. Twbr-zc-fggcagen sacroiliac joint degenerative changes are noted. Minimal left hip joint degenerative changes are seen. Proximal femoral intramedullary nail with proximal and distal interlocking screws again seen. Stable alignment of the intertrochanteric fracture site is noted. No evidence of metallic fracture or screw loosening. No acute fracture site is seen. Reading Location: [place] [address] CC: FELIPE Carrillo; Dr. Zuly Blas DO Quick Technician: Signed Normal [facility] Orthopedic Visit Reporton Orthopedic Visit Report [facility] [address] [place] [address] OFFICE VISIT Date of Service: 11/17/24 MR#: [id number] Acct: [id number] Name: SONIA NOBLE Rep #: [id number] : 1945 Provider: FELIPE Carrillo Age/Sex: 79/F Location: [facility] [place] [facility] Status: Signed Intake Vital Signs 11/27/23 11:08 11/17/24 09:05 Height 5 ft 1 in 5 ft 1 in Weight: 120 lb 8 oz BMI 22.7 Intake Visit Reasons: RIGHT HIP Chief Complaint: 1 year post-op right hip Accompanied by: Self Is patient in pain?: No Allergies Sulfa (Sulfonamide Antibiotics) Allergy (Verified 11/17/24 09:06) Rash Medications ???Medication ???Instructions ???Recorded ???Confirmed ???Type cholecalciferol (vitamin D3) 1,250 50,000 units PO QWEEK supple 11/17/24 History mcg (50,000 unit) capsule pravastatin 10 mg tablet 10 mg PO QHS cholesterol 01/24/19 11/17/24 History liothyronine 5 mcg tablet 5 mcg PO DAILY hypothyroid 4 11/17/24 History sertraline 100 mg tablet 150 mg PO DAILY depression 4 11/17/24 History mirtazapine 45 mg tablet 45 mg PO QHS depression/anxiety 11/17/24 History bupropion HCl 150 mg tablet,12 hr 150 mg PO DAILY depression/anxiet y 11/12/23 11/17/24 History sustained-release acetaminophen 500 mg tablet 1,000 mg (2 x 500 mg) PO Q8 #0 tab s 11/17/23 11/17/24 Rx rivaroxaban 10 mg tablet (Xarelto) 10 mg PO DINNER 30 days #30 tabs 11/17/23 11/17/24 Rx ascorbic acid (vitamin C) 500 mg 500 mg PO BID #60 tabs 11/18/23 Rx tablet pantoprazole 40 mg tablet,delayed 40 mg PO DAILY 11/27/23 11/17/24 History release methocarbamol 500 mg tablet 500 mg PO TID 12/25/23 11/17/24 Hi story vitamin D04-lwnbmos B1 1,000 ml IM 02/12/24 11/17/24 History mcg-100 mg/mL injection solution levothyroxine 112 mcg tablet 112 mcg PO QDAY 11/17/24 11/17/24 History meloxicam 15 mg tablet 15 mg PO QDAY 11/17/24 11/17/24 Hi story Have you fallen in the past year?: No PFSH Medical History Closed intertrochanteric fracture of right hip Venous (peripheral) insufficiency Tobacco abuse Puncture wound of left leg excluding thigh Wears hearing aid Loss of hearing Wears dentures Open wound Cat bite of left lower leg Smoking hx COPD (chronic obstructive pulmonary disease) Back problem Diarrhea GERD (gastroesophageal reflux disease) Depression with anxiety Arthritis History of back problems History of colon cancer History of thyroid cancer Surgical History History of partial thyroidectomy History of colectomy History of hysterectomy Family History Father Colon cancer Mother Heart disease Osteoporosis Social History Smoking Status: Current every day smoker tobacco type: cigarettes alcohol intake: never substance use type: does not use HPI RIGHT HIP Details: This documentation accurately reflects the service provided and the decisions made by me, FELIPE Carrillo 11/17/24 0902. Part of today???s visit was documented by Yari Rosario ATC, acting as scribe. SONIA NOBLE is a 79 year old F here today for s/p right femur Cephalmedullary Nailing DOS 11/13/[address] Cool. Patient states she does not have any pain in the hip today but occasionally she will get some depending on how she moves. She does ambulate with a cane. She denies any recent falls or injuries. Uses a cane when she is out of the house. 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 Ortho Exam General General: Yes no acute distress Neurologic: Yes alert and Yes oriented x3 Right Hip HIP: Right hip surgical incision scars is well healed. R lower extremity shows 5x5 power. Distal neurovascular exam is intact. Coding Level of Care Code Off vis,est,level 3 Diagnoses Status post hip surgery Z98.890 Leg length discrepancy M21.70 Assessment and Plan Assessment and Plan (1) Status post hip surgery: (2) Leg length discrepancy: Status: Acute Orders: Orders HIP, UNI W/ Pelvis 2-3 Views Today S72.001S - Fracture of unspecified part of neck of right femur, sequela Plan Patient is 1 year status post right hip gamma nailing for intertrochanteric fracture. X-rays done today in the clinic show hardware and alignment good position. Patient does have subsidence at the fracture site but this has been unchanged over the last follow-ups. Discussed shoe raise or inserts for the limb length discrepancy for comfort if absolutely needed. Patient says that she does not have any increased pain in the left hip while walking. Discussed that if she (more content not included)... Normal [facility] [place] Anion gap in Serum or Plasma Ordered By: Zuly Blas on 10-31-2024 Anion gap [Moles/Vol] 12 mmol/L 5-15 [facility] BUN/creatinine ratioOrdered By: Zuly Blas on 10-31-2024 Urea nitrogen/Creatinine [Mass ratio] 13.0 mg/mg 10-20 [facility] [place] Bilirubin, totalOrdered By: Zuly Blas on 10-31-2024 Bilirubin [Mass/Vol] 0.28 mg/dL 0.00-1.30 [facility] Carbon dioxide, total [Moles /volume] in Central venous bloodOrdered By: Zuly Blas on 10-31-2024 CO2 [Moles/Vol] 21.1 mmol/L 21.0-32.0 [facility] [place] Chloride assayOrdered By: Lia Blas on 10-31-2024 Chloride [Moles/Vol] 99 mmol/L 98-108 [facility] Comprehensive Metabolic Prof ilon 10-31-2024 Albumin [Mass/Vol] 3.8 g/dL Normal 3.4-4.8 [facility] Comment on above: Performed By: #### L 506.0400, L501.9520, L500.4050, L501.36166 #### [facility] [place] Laboratory [address] [place], [address] Albumin/Globulin [Mass ratio] 1.2 {ratio} Normal 0.9-2.4 [facility] Comment on above: Performed By: #### L 506.0400, L501.9520, L500.4050, L501.28369 #### [facility] [place] Laboratory [address] [place], [address] ALK PHOS 166 U/L High 35-104 [facility] [place] Comment on above: Performed By: #### L 506.0400, L501.9520, L500.4050, L501.02192 #### [facility] [place] Laboratory [address] [place], [address] ALT [Catalytic activity/Vol] 13 U/L Normal <=34 [facility] [place] Comment on above: Result Comment: Hemo lysis present, Results??could be affected. ?? Performed By: #### L 506.0400, L501.9520, L500.4050, L501.25288 #### [facility] [place] Laboratory [address] [place], [address] AST [Catalytic activity/Vol] 30 U/L Normal <=31 [facility] [place] Comment on above: Result Comment: Hemo lysis present, Results??could be affected. ?? Performed By: #### L 506.0400, L501.9520, L500.4050, L501.47041 #### [facility] [place] Laboratory [address] [place], [address] Bilirubin [Mass/Vol] 0.28 mg/dL Normal 0.00-1.30 [facility] Comment on above: Performed By: #### L 506.0400, L501.9520, L500.4050, L501.47114 #### [facility] [place] Laboratory [address] [place], [address] BUN/CRE 13.0 RATIO Normal 10-20 [facility] [place] Comment on above: Performed By: #### L 506.0400, L501.9520, L500.4050, L501.31558 #### [facility] [place] Laboratory [address] [place], [address] Calcium [Mass/Vol] 9.4 mg/dL Normal 7.6-11.0 [facility] Comment on above: Performed By: #### L 506.0400, L501.9520, L500.4050, L501.11838 #### [facility] [place] Laboratory [address] [place], [address] Chloride [Moles/Vol] 99 mmol/L Normal 98-108 [facility] Comment on above: Performed By: #### L 506.0400, L501.9520, L500.4050, L501.25668 #### [facility] [place] Laboratory [address] [place], [address] CO2 [Moles/Vol] 21.1 mmol/L Normal 21.0-32.0 [facility] Comment on above: Performed By: #### L 506.0400, L501.9520, L500.4050, L501.64424 #### [facility] [place] Laboratory [address] [place], [address] Creatinine [Mass/Vol] 0.81 mg/dL Normal 0.70-1.20 [facility] Comment on above: Performed By: #### L 506.0400, L501.9520, L500.4050, L501.53661 #### [facility] [place] Laboratory [address] [place], [address] GAP 12 Normal 5-15 [facility] Comment on above: Performed By: #### L 506.0400, L501.9520, L500.4050, L501.38088 #### [facility] [place] Laboratory [address] [place], [address] GFR/1.73 sq M.predicted among non-blacks MDRD (S/P/Bld) [Vol rate/Area] 74 mL/min/{1.73_m2} Normal >60 [facility] [place] Comment on above: Result Comment: mL/m in/1.73m2 CKD-EPI Creatinine Equation (2020) Performed By: #### L 506.0400, L501.9520, L500.4050, L501.33825 #### [facility] Laboratory [address] [place], [address] Globulin (S) [Mass/Vol] 3.1 g/dL Normal 2.2-4.2 [facility] Comment on above: Performed By: #### L 506.0400, L501.9520, L500.4050, L501.01676 #### [facility] Laboratory [address] [place], [address] Glucose [Mass/Vol] 117 mg/dL High 70-99 [facility] Comment on above: Performed By: #### L 506.0400, L501.9520, L500.4050, L501.78397 #### [facility] [place] Laboratory [address] [place], [address] Potassium [Moles/Vol] 4.6 mmol/L Normal 3.3-5.1 [facility] Comment on above: Result Comment: Hemo lysis present, Results??could be affected. ?? Performed By: #### L 506.0400, L501.9520, L500.4050, L501.63240 #### [facility] [place] Laboratory [address] [place], [address] Sodium [Moles/Vol] 132 mmol/L Low 133-145 [facility] Comment on above: Performed By: #### L 506.0400, L501.9520, L500.4050, L501.88617 #### [facility] [place] Laboratory [address] [place], [address] T PROT 6.9 g/dL Normal 5.9-8.4 [facility] [place] Comment on above: Performed By: #### L 506.0400, L501.9520, L500.4050, L501.56209 #### [facility] [place] Laboratory [address] [place], [address] Urea nitrogen [Mass/Vol] 11 mg/dL Normal 4-19 [facility] [place] Comment on above: Performed By: #### L 506.0400, L501.9520, L500.4050, L501.90982 #### [facility] [place] Laboratory [address] [place], [address] Free T3on 10-31-2024 Free T3 [Mass/Vol] 2.3 pg/mL Normal 2.18-3.98 [facility] Comment on above: Performed By: #### L 506.0400, L501.9520, L500.4050, L501.18487 #### [facility] Laboratory [address] [place], [address] Free W3Hvxwncn By: Zuly lara on 10-31-2024 Free T3 [Mass/Vol] 2.3 pg/mL 2.18-3.98 [facility] Glomerular filtration rate ( GFR) estimation/1.73 sq m using serum, plasma, or whole bOrdered By: Zuly Blas on 10-31-2024 GFR/1.73 sq M.predicted among non-blacks MDRD (S/P/Bld) [Vol rate/Area] 74 mL/min/{1.73_m2} >60 [facility] Comment on above: mL/min/1.73m2 CKD-EP I Creatinine Equation (2020) Laboratory - Chemistry and C hemistry - challengeOrdered By: Zuly Blas on 10-31-2024 AST [Catalytic activity/Vol] 30 U/L <32 [facility] [place] Comment on above: Hemolysis present, R esults could be affected. Potassium measurement (mass/ volume)Ordered By: Zuly Blas on 10-31-2024 Potassium (Unsp spec) [Mass/Vol] 4.6 mmol/L 3.3-5.1 [facility] Comment on above: Hemolysis present, R esults could be affected. Serum creatinine measurement (mass/volume)Ordered By: Zuly Blas on 10-31-2024 Creatinine [Mass/Vol] 0.81 mg/dL 0.70-1.20 [facility] Serum globulin measurementOr dered By: Zluy Blas on 10-31-2024 Globulin (S) [Mass/Vol] 3.1 g/dL 2.2-4.2 [facility] Serum glucose measurement (m ass/volume)Ordered By: Zuly Blas on 10-31-2024 Glucose [Mass/Vol] 117 mg/dL High 70-99 [facility] Serum or plasma alanine salguero otransferase (ALT) measurementOrdered By: Zuly Blas on 10-31-2024 ALT [Catalytic activity/Vol] 13 U/L <35 [facility] Comment on above: Hemolysis present, R esults could be affected. Serum or plasma albumin magdalena urement (mass/volume)Ordered By: Zuly Blas on 10-31-2024 Albumin [Mass/Vol] 3.8 g/dL 3.4-4.8 [facility] Serum or plasma albumin/glob ulin mass ratioOrdered By: Zuly Blas on 10-31-2024 Albumin/Globulin [Mass ratio] 1.2 {ratio} 0.9-2.4 [facility] [place] Serum or plasma alkaline terrance sphatase measurementOrdered By: Zuly Blas on 10-31-2024 ALP [Catalytic activity/Vol] 166 U/L High 35-104 [facility] Serum or plasma calcium magdalena urement (mass/volume)Ordered By: Zuly Blas on 10-31-2024 Calcium [Mass/Vol] 9.4 mg/dL 7.6-11.0 [facility] Serum or plasma urea nitroge n measurement (mass/volume)Ordered By: Zuly Blas on 10-31-2024 Urea nitrogen [Mass/Vol] 11 mg/dL 4-19 [facility] Sodium levelOrdered By: Zuly Blas on 10-31-2024 Sodium [Moles/Vol] 132 mmol/L Low 133-145 [facility] T4 Free Directon 10-31-2024 T4 FREE DIRECT 1.20 ng/dL Normal 0.76-1.46 [facility] Comment on above: Performed By: #### L 506.0400, L501.9520, L500.4050, L501.09664 #### [facility] Laboratory [address] [place], [place], [address] T4 freeOrdered By: Zuly Schumacher s on 10-31-2024 Free T4 [Mass/Vol] 1.20 ng/dL 0.76-1.46 [facility] TSH DL <= 0.005 mIU/L QnOrde red By: Zuly Blas on 10-31-2024 TSH Qn 3.500 uIU/mL 0.300-4.200 [facility] Thyroid Stim Hormone (TSH)on 10-31-2024 TSH 3.500 uIU/mL Normal 0.300-4.200 [facility] [place] Comment on above: Performed By: #### L 506.0400, L501.9520, L500.4050, L501.93748 #### [facility] Laboratory [address] [place], [address] Total proteinOrdered By: Carmen Blas on 10-31-2024 Protein [Mass/Vol] 6.9 g/dL 5.9-8.4 [facility] Absolute lymphocyte countOrd ered By: Zuly Blas on 07-25-2024 Lymphocytes Auto (Unsp spec) [#/Vol] 1.41 10*3/uL 0.83-4.51 [facility] [place] Absolute neutrophil countOrd ered By: Zuly Blas on 07-25-2024 Neutrophils (Bld) [#/Vol] 3.3 10*3/uL 2.0-7.7 [facility] Anion gap in Serum or Plasma Ordered By: Zuly Blas on 07-25-2024 Anion gap [Moles/Vol] 9 mmol/L 5- [facility] Automated lymphocyte count a s percentage of total leukocytesOrdered By: Zuly Blas on 07-25-2024 Lymphocytes/100 WBC Auto (Unsp spec) 24.1 % 19- [facility] BUN/creatinine ratioOrdered By: Zuly Blas on 07-25-2024 Urea nitrogen/Creatinine [Mass ratio] 12.9 mg/mg 10- [facility] [place] Basophil percentageOrdered B y: Zuly Blas on 07-25-2024 Basophils/100 WBC (Bld) 1.4 % High 0-1 [facility] Bilirubin, totalOrdered By: Zuly Blas on 07-25-2024 Bilirubin [Mass/Vol] 0.33 mg/dL 0.00-1.30 [facility] CBC W/Diff, Automatedon 07-12 Absolute Lymph 1.41 X10 3/uL Normal 0.83-4.51 [facility] Comment on above: Performed By: #### L 501.81896, L501.9520, L100.0100, L506.0400, L500.4050 ####[facility] [address] [place], [address] Absolute Neut 3.3 X10 3/uL Normal 2.0-7.7 [facility] Comment on above: Performed By: #### L 501.77064, L501.9520, L100.0100, L506.0400, L500.4050 ####[facility] [address] [place], [address] Basophils/100 WBC (Bld) 1.4 % High 0-1 [facility] Comment on above: Performed By: #### L 501.61876, L501.9520, L100.0100, L506.0400, L500.4050 ####[facility] [address] [place], [address] Eosinophils/100 WBC (Bld) 8.7 % High 0-5 [facility] Comment on above: Performed By: #### L 501.78963, L501.9520, L100.0100, L506.0400, L500.4050 ####[facility] [address] [place], [address] Erythrocyte distribution width (RBC) [Ratio] 14.9 % High 11.6-14.6 [facility] Comment on above: Performed By: #### L 501.72189, L501.9520, L100.0100, L506.0400, L500.4050 ####[facility] [address] [place], [address] Hematocrit (Bld) [Volume fraction] 38.9 % Normal 37-47 [facility] Comment on above: Performed By: #### L 501.22501, L501.9520, L100.0100, L506.0400, L500.4050 ####[facility] [address] [place], [address] Hemoglobin (Bld) [Mass/Vol] 12.9 g/dL Normal 12.0-15.0 [facility] Comment on above: Performed By: #### L 501.27308, L501.9520, L100.0100, L506.0400, L500.4050 ####[facility] [address] [place], [address] IG% 0.500 Normal 0.0-0.9 [facility] Comment on above: Result Comment: IG% - Immature Granulocytes (promyelocytes, myelocytes and metamyelocytes) > 1% indicates that a LEFT SHIFT is Present. Performed By: #### L 501.22317, L501.9520, L100.0100, L506.0400, L500.4050 ####[facility] [address] [place], [address] Lymphocytes/100 WBC (Bld) 24.1 % Normal 19-41 [facility] Comment on above: Performed By: #### L 501.91207, L501.9520, L100.0100, L506.0400, L500.4050 ####[facility] [address] [place], [address] MCH (RBC) [Entitic mass] 31.0 pg Normal 27.0-32.0 [facility] Comment on above: Performed By: #### L 501.87375, L501.9520, L100.0100, L506.0400, L500.4050 ####[facility] [address] [place], [address] MCHC (RBC) [Mass/Vol] 33.2 g/dL Normal 32-36 [facility] Comment on above: Performed By: #### L 501.77762, L501.9520, L100.0100, L506.0400, L500.4050 ####[facility] [address] [place], [address] MCV (RBC) [Entitic vol] 93.5 fL Normal 81-99 [facility] Comment on above: Performed By: #### L 501.50984, L501.9520, L100.0100, L506.0400, L500.4050 ####[facility] [address] [place], [address] Monocytes/100 WBC (Bld) 8.4 % Normal 0-10 [facility] Comment on above: Performed By: #### L 501.55200, L501.9520, L100.0100, L506.0400, L500.4050 ####[facility] [address] [place], [address] Neutrophils/100 WBC (Bld) 56.9 % Normal 47-70 [facility] Comment on above: Performed By: #### L 501.92619, L501.9520, L100.0100, L506.0400, L500.4050 ####[facility] [address] [place], [address] Nucleated RBC (Bld) [#/Vol] 0 10*3/uL Normal 0-5 [facility] Comment on above: Performed By: #### L 501.68489, L501.9520, L100.0100, L506.0400, L500.4050 ####[facility] [address] [place], [address] Platelet mean volume (Bld) [Entitic vol] 10.2 fL Normal 6.2-12.0 [facility] Comment on above: Performed By: #### L 501.57579, L501.9520, L100.0100, L506.0400, L500.4050 ####[facility] [address] [place], [address] Platelets (Bld) [#/Vol] 218 10*3/uL Normal 150-450 [facility] Comment on above: Performed By: #### L 501.13987, L501.9520, L100.0100, L506.0400, L500.4050 ####[facility] [address] [place], [address] RBC (Bld) [#/Vol] 4.16 10*6/uL Low 4.2-5.4 [facility] Comment on above: Performed By: #### L 501.44989, L501.9520, L100.0100, L506.0400, L500.4050 ####[facility] [address] [place], [address] RDW SD 51.4 fl High 35.1-43.9 [facility] Comment on above: Performed By: #### L 501.84170, L501.9520, L100.0100, L506.0400, L500.4050 ####[facility] [address] [place], [address] WBC (Bld) [#/Vol] 5.9 10*3/uL Normal 4.4-11.0 [facility] Comment on above: Performed By: #### L 501.25346, L501.9520, L100.0100, L506.0400, L500.4050 ####[facility] [address] [place], [address] Carbon dioxide, total [Moles /volume] in Central venous bloodOrdered By: Zuly Blas on 07-25-2024 CO2 [Moles/Vol] 25.3 mmol/L 21.0-32.0 [facility] Chloride assayOrdered By: Lia Blas on 07-25-2024 Chloride [Moles/Vol] 99 mmol/L 98-108 [facility] Comprehensive Metabolic Prof ilon 07-25-2024 Albumin [Mass/Vol] 4.0 g/dL Normal 3.4-4.8 [facility] Comment on above: Performed By: #### L 501.02960, L501.9520, L100.0100, L506.0400, L500.4050 ####[facility] [address] [place], [address] Albumin/Globulin [Mass ratio] 1.3 {ratio} Normal 0.9-2.4 [facility] Comment on above: Performed By: #### L 501.18417, L501.9520, L100.0100, L506.0400, L500.4050 ####[facility] [address] [place], [address] ALK PHOS 199 U/L High 35-104 [facility] Comment on above: Performed By: #### L 501.16530, L501.9520, L100.0100, L506.0400, L500.4050 ####[facility] [address] [place], [address] ALT [Catalytic activity/Vol] 28 U/L Normal <=34 [facility] Comment on above: Performed By: #### L 501.14219, L501.9520, L100.0100, L506.0400, L500.4050 ####[facility] [address] [place], [address] AST [Catalytic activity/Vol] 37 U/L High <=31 [facility] Comment on above: Performed By: #### L 501.47728, L501.9520, L100.0100, L506.0400, L500.4050 ####[facility] [address] [place], [address] Bilirubin [Mass/Vol] 0.33 mg/dL Normal 0.00-1.30 [facility] Comment on above: Performed By: #### L 501.24003, L501.9520, L100.0100, L506.0400, L500.4050 ####[facility] [address] [place], [address] BUN/CRE 12.9 RATIO Normal 10-20 [facility] Comment on above: Performed By: #### L 501.22455, L501.9520, L100.0100, L506.0400, L500.4050 ####[facility] [address] [place], [address] Calcium [Mass/Vol] 9.1 mg/dL Normal 7.6-11.0 [facility] Comment on above: Performed By: #### L 501.12236, L501.9520, L100.0100, L506.0400, L500.4050 ####[facility] [address] [place], [address] Chloride [Moles/Vol] 99 mmol/L Normal 98-108 [facility] Comment on above: Performed By: #### L 501.03162, L501.9520, L100.0100, L506.0400, L500.4050 ####[facility] [address] [place], [address] CO2 [Moles/Vol] 25.3 mmol/L Normal 21.0-32.0 [facility] Comment on above: Performed By: #### L 501.16430, L501.9520, L100.0100, L506.0400, L500.4050 ####[facility] [address] [place], [address] Creatinine [Mass/Vol] 0.93 mg/dL Normal 0.70-1.20 [facility] Comment on above: Performed By: #### L 501.06164, L501.9520, L100.0100, L506.0400, L500.4050 ####[facility] [address] [place], [address] GAP 9 Normal 5-15 [facility] Comment on above: Performed By: #### L 501.73351, L501.9520, L100.0100, L506.0400, L500.4050 ####[facility] [address] [place], [address] GFR/1.73 sq M.predicted among non-blacks MDRD (S/P/Bld) [Vol rate/Area] 62 mL/min/{1.73_m2} Normal >60 [facility] Comment on above: Result Comment: mL/m in/1.73m2 CKD-EPI Creatinine Equation (2020) Performed By: #### L 501.57633, L501.9520, L100.0100, L506.0400, L500.4050 ####[facility] [address] [place], [address] Globulin (S) [Mass/Vol] 3.1 g/dL Normal 2.2-4.2 [facility] Comment on above: Performed By: #### L 501.69755, L501.9520, L100.0100, L506.0400, L500.4050 ####[facility] [address] [place], [address] Glucose [Mass/Vol] 91 mg/dL Normal 70-99 [facility] Comment on above: Performed By: #### L 501.45570, L501.9520, L100.0100, L506.0400, L500.4050 ####[facility] [address] [place], [address] Potassium [Moles/Vol] 5.0 mmol/L Normal 3.3-5.1 [facility] Comment on above: Performed By: #### L 501.02844, L501.9520, L100.0100, L506.0400, L500.4050 ####[facility] [address] [place], [address] Sodium [Moles/Vol] 132 mmol/L Low 133-145 [facility] Comment on above: Performed By: #### L 501.32684, L501.9520, L100.0100, L506.0400, L500.4050 ####[facility] [address] [place], [address] T PROT 7.0 g/dL Normal 5.9-8.4 [facility] Comment on above: Performed By: #### L 501.80277, L501.9520, L100.0100, L506.0400, L500.4050 ####[facility] [address] [place], [address] Urea nitrogen [Mass/Vol] 12 mg/dL Normal 4-19 [facility] Comment on above: Performed By: #### L 501.50781, L501.9520, L100.0100, L506.0400, L500.4050 ####[facility] [address] [place], [place], [id number] Eosinophil percentageOrdered By: Zuly Blas on 07-25-2024 Eosinophils/100 WBC (Bld) 8.7 % High 0-5 [facility] Erythrocyte distribution wid th (RBC) [Ratio]Ordered By: Zuly Blas on 07-25-2024 Erythrocyte distribution width (RBC) [Entitic vol] 51.4 fL High 35.1-43.9 [facility] Erythrocyte distribution wid th ratioOrdered By: Zuly Blas on 07-25-2024 Erythrocyte distribution width (RBC) [Ratio] 14.9 % High 11.6-14.6 [facility] Erythrocyte distribution wid th standard deviationOrdered By: Zuly Blas on 07-25-2024 Erythrocyte distribution width (RBC) [Ratio] 51.4 fl High 35.1-43.9 [facility] Free T3on 07-25-2024 Free T3 [Mass/Vol] 2.3 pg/mL Normal 2.18-3.98 [facility] Comment on above: Performed By: #### L 501.70354, L501.9520, L100.0100, L506.0400, L500.4050 ####[facility] [address] [place], [place], [id number] Free Q2Dztrprq By: Zuly Schumacher s on 07-25-2024 Free T3 [Mass/Vol] 2.3 pg/mL 2.18-3.98 [facility] Free Triiodothyronine (T3) pg/dL 2.3 pg/mL 2.18-3.98 [facility] GFR/1.73 sq M.predicted harley g non-blacks MDRD (S/P/Bld) [Vol rate/Area]Ordered By: Zuly Blas on 07-25-2024 Estimated GFR (MDRD) Non-Af Amer 62 >60 [facility] Comment on above: mL/min/1.73m2 CKD-EP I Creatinine Equation (2020) Glomerular filtration rate ( GFR) estimation/1.73 sq m using serum, plasma, or whole bOrdered By: Zuly Blas on 07-25-2024 GFR/1.73 sq M.predicted among non-blacks MDRD (S/P/Bld) [Vol rate/Area] 62 mL/min/{1.73_m2} >60 [facility] Comment on above: mL/min/1.73m2 CKD-EP I Creatinine Equation (2020) Hematocrit Auto (Bld) [Volum e fraction]Ordered By: Zuly Blas on 07-25-2024 Hematocrit (Bld) [Volume fraction] 38.9 % 37-47 [facility] Hemoglobin measurementOrdere d By: Zuly Blas on 07-25-2024 Hemoglobin (Bld) [Mass/Vol] 12.9 g/dL 12.0-15.0 [facility] Immature granulocytes/100 WB C Auto (Bld)Ordered By: Zuly Blas on 07-25-2024 Immature granulocytes/100 WBC (Bld) 0.500 % 0.0-0.9 [facility] Comment on above: IG% - Immature Granu locytes (promyelocytes, myelocytes and metamyelocytes) > 1% indicates that a LEFT SHIFT is Present. Laboratory - Chemistry and C hemistry - challengeOrdered By: Zuly Blas on 07-25-2024 AST [Catalytic activity/Vol] 37 U/L High <32 [facility] Lymphocytes Auto (Unsp spec) [#/Vol]Ordered By: Zuly Blas on 07-25-2024 Lymphocytes (Bld) [#/Vol] 1.41 10*3/uL 0.83-4.51 [facility] Lymphocytes/100 WBC Auto (Un sp spec)Ordered By: Zuly Blas on 07-25-2024 Lymphocytes/100 WBC (Bld) 24.1 % 19-41 [facility] MCV (mean corpuscular volume ) determinationOrdered By: Zuly Blas on 07-25-2024 MCV (RBC) [Entitic vol] 93.5 fL 81-99 [facility] Mean corpuscular hemoglobin (MCH) determinationOrdered By: Zuly Blas on 07-25-2024 MCH (RBC) [Entitic mass] 31.0 pg 27.0-32.0 [facility] Mean corpuscular hemoglobin concentration (MCHC) determinationOrdered By: Zuly Blas on 07-25-2024 MCHC (RBC) [Mass/Vol] 33.2 g/dL 32-36 [facility] Mean platelet volume determi nationOrdered By: Zuly Blas on 07-25-2024 Platelet mean volume (Bld) [Entitic vol] 10.2 fL 6.2-12.0 [facility] Monocyte percentageOrdered B y: Zuly Blas on 07-25-2024 Monocytes/100 WBC (Bld) 8.4 % 0-10 [facility] Neutrophil percentageOrdered By: Zuly Blas on 07-25-2024 Neutrophils/100 WBC (Bld) 56.9 % 47-70 [facility] Nucleated red blood cell per centageOrdered By: Zuly Blas on 07-25-2024 Nucleated RBC/100 WBC (Bld) [Ratio] 0 % 0-5 [facility] Platelet countOrdered By: Lia Blas on 07-25-2024 Platelets (Bld) [#/Vol] 218 10*3/uL 150-450 [facility] Potassium (Unsp spec) [Mass/ Vol]Ordered By: Zuly Blas on 07-25-2024 Potassium [Moles/Vol] 5.0 mmol/L 3.3-5.1 [facility] Potassium measurement (mass/ volume)Ordered By: Zuly Blas on 07-25-2024 Potassium (Unsp spec) [Mass/Vol] 5.0 mmol/L 3.3-5.1 [facility] RBC Auto (Bld) [#/Vol]Ordere d By: Zuly Blas on 07-25-2024 RBC (Bld) [#/Vol] 4.16 10*6/uL Low 4.2-5.4 [facility] Serum creatinine measurement (mass/volume)Ordered By: Zuly Blas on 07-25-2024 Creatinine [Mass/Vol] 0.93 mg/dL 0.70-1.20 [facility] Serum globulin measurementOr dered By: Zuly Blas on 07-25-2024 Globulin (S) [Mass/Vol] 3.1 g/dL 2.2-4.2 [facility] Serum glucose measurement (m ass/volume)Ordered By: Zuly Blas on 07-25-2024 Glucose [Mass/Vol] 91 mg/dL 70-99 [facility] Serum or plasma alanine salguero otransferase (ALT) measurementOrdered By: Zuly Blas on 07-25-2024 ALT [Catalytic activity/Vol] 28 U/L <35 [facility] Serum or plasma albumin magdalena urement (mass/volume)Ordered By: Zuly Blas on 07-25-2024 Albumin [Mass/Vol] 4.0 g/dL 3.4-4.8 [facility] Serum or plasma albumin/glob ulin mass ratioOrdered By: Zuly Blas on 07-25-2024 Albumin/Globulin [Mass ratio] 1.3 {ratio} 0.9-2.4 [facility] Serum or plasma alkaline terrance sphatase measurementOrdered By: Zuly Blas on 07-25-2024 ALP [Catalytic activity/Vol] 199 U/L High 35-104 [facility] Serum or plasma calcium magdalena urement (mass/volume)Ordered By: Zuly Blas on 07-25-2024 Calcium [Mass/Vol] 9.1 mg/dL 7.6-11.0 [facility] Serum or plasma urea nitroge n measurement (mass/volume)Ordered By: Zuly Blas on 07-25-2024 Urea nitrogen [Mass/Vol] 12 mg/dL 4-19 [facility] Sodium levelOrdered By: Zuly Blas on 07-25-2024 Sodium [Moles/Vol] 132 mmol/L Low 133-145 [facility] T4 Free Directon 07-25-2024 T4 FREE DIRECT 0.90 ng/dL Normal 0.76-1.46 [facility] Comment on above: Performed By: #### L 501.53978, L501.9555, L100.0100, L506.0400, L500.4050 ####[facility] [address] [place], [address] T4 freeOrdered By: Zuly Schumacher s on 07-25-2024 Free T4 [Mass/Vol] 0.90 ng/dL 0.76-1.46 [facility] TSH DL <= 0.005 mIU/L QnOrde red By: Zuly Blas on 07-25-2024 Thyroid Stimulating Hormone (TSH) 11.000 uIU/mL High 0.300-4.200 [facility] TSH Qn 11.000 uIU/mL High 0.300-4.200 [facility] Thyroid Stim Hormone (TSH)on 07-25-2024 TSH 11.000 uIU/mL High 0.300-4.200 [facility] Comment on above: Performed By: #### L 501.10655, L501.9520, L100.0100, L506.0400, L500.4050 ####[facility] [address] [facility] [place], [address] Total proteinOrdered By: Carmen Blas on 07-25-2024 Protein [Mass/Vol] 7.0 g/dL 5.9-8.4 [facility] White blood cell (WBC) count Ordered By: Zuly Blas on 07-25-2024 WBC (Bld) [#/Vol] 5.9 10*3/uL 4.4-11.0 [facility] HIP, UNI W/ Pelvis 2-3 Views on 06-02-2024 HIP, UNI W/ Pelvis 2-3 Views [facility] Imaging Services [address], [place] [id number] HIP, UNI W/ Pelvis 2-3 Views MR#: [id number] Acct: [id number] Name: SONIA NOBLE Rep #: [id number] : 1945 F 78 From: Aki Rodriguez i DO PCP: Dr. Zuly Blas, DO Status: DEP AMB Study: HIP, UNI W/ Pelvis 2-3 Views Date of Exam: Exam# [id number] Ordering Dr: Reginaldo Cool MD PROCEDURE: Pelvis and right hip radiographs, three views REASON FOR EXAM: Follow-up right hip fracture TECHNIQUE: Three views of the pelvis and right hip were obtained. COMPARISON: 02/12/2024 FINDINGS: Three views of the pelvis and right hip were obtained. Bones are osteopenic. Somewhat lucent appearance of the left upper maria m sacrum when compared to the right is unchanged. Chronic appearing deformity of the left side of the pubic symphysis and right superior/inferior pubic rami. Intact right femoral neck compression screw and proximal right femoral intramedullary alla. Alignment of the major fracture fragments of the intertrochanteric region proximal right femur is similar to the previous study. Mild degenerative changes in the hip joints. RAD/HIP, UNI W/ Pelvis 2-3 Views IMPRESSION: Osteopenia. No acute bony abnormality of the pelvis/right hip. Grossly intact right hip surgical hardware. Chronic appearing deformities of the left side of the pubic symphysis and right superior and inferior pubic rami. Reading Location: [facility] CC: Dr. Reginaldo Cool MD; Dr. Zuly Blas DO Quick Technician: Signed Normal [facility] Orthopedic Visit Reporton Orthopedic Visit Report [facility] [address] [place] [address] OFFICE VISIT Date of Service: 06/02/24 MR#: [id number] Acct: [id number] Name: SONIA NOBLE Rep #: [id number] : 1945 Provider: Dr. Reginaldo Cool MD Age/Sex: 78/F Location: [facility] [place] [facility] Status: Signed Intake Vital Signs 11/27/23 11:08 Height 5 ft 1 in Intake Visit Reasons: RIGHT HIP Chief Complaint: post op right hip Accompanied by: Is patient in pain?: No Allergies Sulfa (Sulfonamide Antibiotics) Allergy (Verified 06/02/24 08:54) Rash Medications ???Medication ???Instructions ???Recorded ???Confirmed ???Type cholecalciferol (vitamin D3) 1,250 50,000 units PO QWEEK supple 06/02/24 History mcg (50,000 unit) capsule pravastatin 10 mg tablet 10 mg PO QHS cholesterol 01/24/19 06/02/24 History liothyronine 5 mcg tablet 5 mcg PO DAILY hypothyroid 4 06/02/24 History sertraline 100 mg tablet 150 mg PO DAILY depression 4 06/02/24 History levothyroxine 100 mcg tablet 100 mcg PO DAILY hypothyroid 07/2706/02/24 History mirtazapine 45 mg tablet 45 mg PO QHS depression/anxiety 06/02/24 History bupropion HCl 150 mg tablet,12 hr 150 mg PO DAILY depression/anxiet y 11/12/23 06/02/24 History sustained-release acetaminophen 500 mg tablet 1,000 mg (2 x 500 mg) PO Q8 #0 tab s 11/17/23 06/02/24 Rx potassium chloride 20 mEq 40 meq (2 x 20 mEq) PO DAILYCM 7 0 11/17/23 06/02/24 Rx tablet,extended release(part/cryst) days #14 tabs rivaroxaban 10 mg tablet (Xarelto) 10 mg PO DINNER 30 days #30 tabs 11/17/23 06/02/24 Rx sennosides 8.6 mg-docusate sodium 2 tab PO BID PRN PRN Constipation 11/17/23 06/02/24 Rx 50 mg tablet (Stimulant Laxative #0 tabs Plus) ascorbic acid (vitamin C) 500 mg 500 mg PO BID #60 tabs 11/18/23 Rx tablet ferrous sulfate 325 mg (65 mg 325 mg PO DAILY 30 days #30 tabs 0 11/18/23 06/02/24 Rx iron) tablet (FeroSul) pantoprazole 40 mg tablet,delayed 40 mg PO DAILY 11/27/23 06/02/24 History release methocarbamol 500 mg tablet 500 mg PO TID 12/25/23 06/02/24 Hi story vitamin [id number] B1 1,000 ml IM 02/12/24 06/02/24 History mcg-100 mg/mL injection solution Have you fallen in the past year?: Yes (not since her last visit though) [facility] Medical History Closed intertrochanteric fracture of right hip Venous (peripheral) insufficiency Tobacco abuse Puncture wound of left leg excluding thigh Wears hearing aid Loss of hearing Wears dentures Open wound Cat bite of left lower leg Smoking hx COPD (chronic obstructive pulmonary disease) Back problem Diarrhea GERD (gastroesophageal reflux disease) Depression with anxiety Arthritis History of back problems History of colon cancer History of thyroid cancer Surgical History History of partial thyroidectomy History of colectomy History of hysterectomy Family History Father Colon cancer Mother Heart disease Osteoporosis Social History Smoking Status: Current every day smoker tobacco type: cigarettes alcohol intake: never substance use type: does not use HPI RIGHT HIP Details: This documentation accurately reflects the service provided and the decisions made by me, Dr. Reginaldo Cool MD 06/02/24 0884. Part of today???s visit was documented by Yari Rosario ATC, acting as scribe. SONIA NOBLE is a 78 year old F here today for s/p right femur Cephalmedullary Nailing DOS 11/13/2023. Patient denies any pain today in the right hip but states it is a little achy but thinks that is just from the weather. She denies any falls since her last visit. Notices some shortening of the right lower extremity and associated limp. She has been back to all her baseline activities. She uses cane for support. Ortho Exam General General: Yes no acute distress Neurologic: Yes alert and Yes oriented x3 Right Hip HIP: Right hip surgical incision scars is well healed. R lower extremity shows 5x5 power. Distal neurovascular exam is intact. Coding Level of Care Code Off vis,est,level 3 Diagnoses Closed fracture of right hip, sequela S72.001S Encounter type: sequela Leg length discrepancy M21.70 Time Spent (min) 25 Assessment and Plan Assessment and Plan (1) Closed right hip fracture: Status: Acute Qualifiers: Encounter type: sequela Qualified Code(s): S72.001S - Fracture of unspecified part of neck of right femur, sequela (2) Leg length discrepancy: Status: Acute Orders: Orders HIP, UNI W/ Pelvis 2-3 Views Today S72.001S - Fracture of (more content not included)... Normal [facility] PT D/C Summary (1)on 025 PT D/C Summary (1) [facility] Physical Therapy [facility] [address] [place] [address] / REHABILITATION SERVICES DISCHARGE SUMMARY MR#: [id number] Acct: [id number] Name: SOINA NOBLE Rep #: [id number] : 1945 78 From: Tono Hirsch DPT, OCS, CSCS Referring Dr.: Dr. Reginaldo Cool MD Status: REG RCR Insurance: [employer] SELF PAY INSURANCE Discharge Summary D/C summary: It has been my pleasure to treat SONIA NOBLE referred by Dr. Reginaldo Cool MD, with the diagnosis of closed R hip fracture with surgery around 11/11 for a total of 13 visit(s). Discharge Date: 04/25/24 Please see the following information for a summary of their discharge status. Subjective Subjective: Pt noting hip is maybe a 1 today for pain. Pt noting she has not been able to do UE exs over the last couple of days d/t swelling in the hand (which pt notes happens from time to time). Pt noting some muscle soreness following previous visit but notes it was not bad. Pain R groin: Pain Intensity (Out of 10): 2 R hip: Pain Intensity (Out of 10): 1 Overall Improvement % Improvement: 70 Objective Objective/Function: Pt completed lateral step ups today at pool steps for increased WBing and challenge with pt using HR for balance. Pt has visibly more difficulty with the LLE vs RLE today with lateral step ups. With all step ups pt needing min VCs for upright posturing with head and chest up and to avoid looking at feet. Pt corrects well following VCs but does still have moments of very forward flexed posturing but pt able to mostly self correct before [employer] needing to cue. Added lateral band walks today with pt tolerating all well. Given pictures of this for pt to do at home or in pool. Lastly, pt completed STS from pool chair with increased reps today with pt needing min VCs to avoid valgus at knees which pt struggles with even after cues given but slightly less incicdence of valgus noted following cues. Pt given GTB in additional to OTB she has at home. No questions at this time. Goals Goal 1:: Walks without gait deviations in community without AD safely Goal Progress: Progressing Goal 2:: FGA score 24/30 Goal Progress: Goal Met Goal 3:: I appropriate HEP or silver sneakers to reduce deleterious effects of sedentary lifestyle Goal Progress: HEP, needs pool Goal 4:: LEFS score 30 Goal Progress: Progressing Goal 5:: exit chair without UE to get out of car easier. Goal Progress: Goal Met Plan Plan: d/c to I program per most recent POC D/C Information Discharge Comments: Pt has completed therapy and will be discharged per most recent POC. d/c sentence: If there are questions or concerns regarding this patient's physical therapy, please feel free to call me at [phone]. Thank you for the referral of this patient. Sincerely, Tono Hirsch, DPT, OCS, CSCS Balance/Gait/Function al tests Balance/Special Test Scores Functional Gait Assessment Score: 25 % Disability: 16.6700 Lower Extremity Functional Score: 23 Improvement % Improvement: 70 04/25/24 1424 CC: Dr. Reginaldo Cool MD; Dr. Zuly Blas DO [facility] Signed Normal [facility] SONIA NOBLE ([id number]) 1945 F NFR Date Time Provider Department 04/15/24 LIZZ KING During your visit today, we recorded the following information about you: Lizz King APRN.DATABASE ADMIN 04/15/2024 9:20 AM Signed Last two phone calls never returned to clinic. Patient is not scheduled for surgery nor has an upcoming appt with the surgeon. Will remove off of call list. -Lizz King APRN.[place] Allergies As of Date: 04/15/2024 Noted Allergy Reaction DARVOCET A500 (PROPOXYPHENE N-ARABELLA*03/13/2005 8 - GI Upset 11 - Vomiting DARVON (PROPOXYPHENE HCL) 03/13/2005 8 - GI Upset SULFA (SULFONAMIDE ANTIBIOTICS) 03/13/2005 4 - Hives 8 - GI Upset 11 - Vomiting Date Reviewed: 11/10/2023 Reviewed by: Lizz King APRN.DATABASE ADMIN - Fully Assessed Reason for Visit: Patient [...] Status:Closed by LIZZ KING on 04/15/24 Normal [facility] Re-Evaluation - PT (1)on Re-Evaluation - PT (1) [facility] Physical Therapy [facility] [address] [place] [address] / REEVALUATION / MEDICARE RECERTIFICATION PHYSICAL THERAPY MR#: [id number] Acct: [id number] Name: SONIA NOBLE Rep #: [id number] : 1945 78 From: Tono Hirsch DPT, OCS, CSCS Referring Dr.: Dr. Reginaldo Cool MD Status:REG RCR Insurance: [employer] MEDICARE [employer] SELF PAY INSURANCE Re-Evaluation Intro: Dr. Reginaldo Cool MD, It has been my pleasure to treat SONIA NOBLE over the last 7 visits for closed R hip fracture with surgery around 11/11. Please see the progress note below for an update on the physical therapy plan of care! Subjective Subjective: Missed some visits due to not affording co-pay. The pool has helped her. she feels more mobile. Using cane to get around out and about and not at home. No falls. Hip is achy many days with weather but does not keep her from doing anything. Activitiesa at home are pretty nomral outside of running sweeper.Pt wants to continue in water and then join pool for exit strategy. Objective Objective/Function: Walking with slight R trendelneberg but I with and without cane . Steps reciprocally with one rail. FGA is improved. Not quite i in pool progressions yet. Plan Plan Plan: 2x/week for 3 more weeks for AT to teach and progress to ILE adn postural strength and balance and confidence with gait exercises and then d/c to I. No PT f/u needed unless condition changes. Balance/Gait/Function al tests Balance/Special Test Scores Functional Gait Assessment Score: 25 % Disability: 16.6700 Lower Extremity Functional Score: 23 Goals Goals Goal 1:: Walks without gait deviations in community without AD safely Goal Time Frame: 4-6 Weeks Goal Progress: Progressing Goal 2:: FGA score / Goal Time Frame: 4-6 Weeks Goal Progress: Goal Met Goal 3:: I appropriate HEP or silver sneakers to reduce deleterious effects of sedentary lifestyle Goal Time Frame: 4-6 Weeks Goal Progress: HEP, needs pool Goal 4:: LEFS score 30 Goal Time Frame: 4-6 Weeks Goal Progress: Progressing Goal 5:: exit chair without UE to get out of car easier. Goal Time Frame: 4-6 Weeks Goal Progress: Goal Met Anticipated Interventions Anticipated Interventions Patient/Client Instruction: Educate patient on: Condition, Plan of Care and Risk Factors For the Purpose of:: To decrease pain, To increase ROM, To improve muscle performance and motor function, To increase tolerance to activity/condition/po sition and To improve gait and locomotor functions Therapeutic Exercise to Include: Strength training, Flexibilty training, Gait and locomotor training and In an aquatic setting For the Purpose of:: To decrease pain, To increase ROM, To improve nutrient delivery to tissue, To improve muscle performance and motor function, To increase tolerance to activity/condition/po sition, To improve gait and locomotor functions and To improve safety Re-Evaluation Ending Re-evaluation ending: Please do not hesitate to contact me at [phone] by phone or if you have questions or concerns regarding this new plan of care! Sincerely, Tono Hirsch, ROBINT, OCS, CSCS 03/31/24 1018 CC: Dr. Reginaldo Cool MD; Dr. Zuly Blas, EBG Signed For Medicare only, by signing this I certify the plan of care. Physicians Signature Date [facility] 03-15-2024 JACQUELYN Telephone (AGGENS3) SONIA NOBLE ([id number]) 1945 F NFR Date Time Provider Department 03/15/24 LIZZ KING AGG3 During your visit today, we recorded the following information about you: Lizz King APRN.[place] 03/15/2024 3:51 PM Signed LMV for patient to call clinic with updates. -Lizz Allergies As of Date: 03/15/2024 Noted Allergy Reaction DARVOCET A500 (PROPOXYPHENE N-ARABELLA*03/13/2005 8 - GI Upset 11 - Vomiting DARVON (PROPOXYPHENE HCL) 03/13/2005 8 - GI Upset SULFA (SULFONAMIDE ANTIBIOTICS) 03/13/2005 4 - Hives 8 - GI Upset 11 - Vomiting Date Reviewed: 11/10/2023 Reviewed by: Lizz King APRN.DATABASE ADMIN - Fully Assessed Reason for Visit: Patient [...] Status:Closed by LIZZ KING on 03/15/24 Normal [facility] Inital Evaluation (1) - PTon 02-24-2024 Inital Evaluation (1) - PT [facility] Physical [facility] [facility] [address] [place] [address] / REHABILITATION SERVICES INITIAL EVALUATION MR#: [id number] Acct: [id number] Name: SONIA NOBLE Rep #: [id number] : 1945 78 From: Tono Hirsch DPT, OCS, CSCS Referring Dr.: Dr. Reginaldo Cool MD Status: REG RCR Insurance: [employer] MEDICARE SENIOR [facility] SELF PAY INSURANCE Patient's Visit Information Visit Information Visit Information: SONIA NOBLE is a 78 year old F referred to Physical Therapy by Dr. Reginaldo Cool MD with a diagnosis of closed R hip fracture with surgery around 11/11. Date of Evaluation: 02/24/24 Physical Therapist: Tono Hirsch DPT, OCS, CSCS Visit Plan Frequency: 2x /Week Duration: 4-6 Weeks Plan: 2x/week for 4-6 weeks for aquatic therapy for R hip , core and LE strength and gait training. progression to I silver sneakers or HEP. Doing SKC for hip flexion at home and standing hip abd and ext and march at home form HH. Subjective Subjective: Fractured my R hip on November 11 while standing on bed cleaning ceiling fan and fell off. Got too close to edge of bed, balance was good otherwise and no Ad needed then. [facility] and had alla placed in R femur by Dr. Cool. Was having in home rehab since then and used walker for a short while. Now use cane to get around out and about and no AD at home. Pain in r groin if she oveerdoing with WB or driving which also bothers it. sitting too long can make it hurt. Needs UE to get out of chair. HEP: from Home health SLR standing and ROm. Lives with and 2 grandsons, Basic ADLs dressing and bathroom and shower in walk in shower I. Wants to help with sweeper but does not feel strong enough yet. Hobbies: leonie and adalberto dots are sedentary. Employed : retired. Spends day: hobbies: reading. No rpevious exercises. Pain R groin: Pain Intensity (Out of 10): 0 Pain Intensity Range: 0 and 4 Objective Objective: Walks back to PT with cane in L slightly hunched and slow with short L step length but mod I. Can ambulate with good balance without AD but R leg weakness apparent and R trendelenberg is noticable. Sit to stand requires UE but I. Stand to sit slow and I with UE. Bed transfer R LE requiring exctra time and effort. Steps prefers to use L and requires rails, can do r but weaker and less stable. AROM R hip 100 with some end range pain, ir 5 , er 45, no pain. extension 3 vs 8 on L. reflexes 2/3 patella and achilles Sensation LE WNL to gross light touch in B LE. [id number] is most noticeable deficit on R side hip flexion 3 vs 4- L, abduction 3 vs 3+ L, ext 3 vs 3+ L. knee flexion and ext is 3+ R and 4- L. ankles are 4- B. Blaance is good but weak and poor confidence on r side. Balance/Special Test Scores Functional Gait Assessment Score: 22 % Disability: 26.6700 Lower Extremity Functional Score: 10 Goals Goal 1:: Walks without gait deviations in community without AD safely Goal Time Frame: 4-6 Weeks Goal 2:: FGA score 24/30 Goal Time Frame: 4-6 Weeks Goal 3:: I appropriate HEP or silver sneakers to reduce deleterious effects of sedentary lifestyle Goal Time Frame: 4-6 Weeks Goal 4:: LEFS score 30 Goal Time Frame: 4-6 Weeks Goal 5:: exit chair without UE to get out of car easier. Goal Time Frame: 4-6 Weeks Rehabilitation Potential Physical Therapy Diagnosis: weakness r LE limiting mobility adn sconfidence. Rehabilitation Potential: Good Anticipated Interventions Patient/Client Instruction: Educate patient on: Condition, Plan of Care and Risk Factors For the Purpose of:: To decrease pain, To increase ROM, To improve muscle performance and motor function, To increase tolerance to activity/condition/po sition and To improve gait and locomotor functions Therapeutic Exercise to Include: Strength training, Flexibilty training, Gait and locomotor training and In an aquatic setting For the Purpose of:: To decrease pain, To increase ROM, To improve nutrient delivery to tissue, To improve muscle performance and motor function, To increase tolerance to activity/condition/po sition, To improve gait and locomotor functions and To improve safety Text: Thank you for the opportunity to evaluate your patient. For Medicare and Medicare HMO plans, please review the plan of care and approve it. It will need to be FAXED BACK to us at [phone] for Medicare purposes. For Medicare only, by signing this I certify the plan of care. Please let me know if there are questions or concerns regarding this plan of care. Physician Signature: Date : 02/24/24 1019 CC: Dr. Reginaldo Cool MD; Dr. Zuly Blas DO [facility] Signed Normal [facility] 02-05-2024 [facility] Telephone (AGGENS3) SNOIA NOBLE ([id number]) 1945 F NFR Date Time Provider Department 02/05/24 LIZZ KING3 During your visit today, we recorded the following information about you: Lizz King APRN.CNP 02/05/2024 11:57 AM Signed LMV for patient to call clinic with updates. No appt with surgeon or surgery scheduled as of yet. Will place vocational technical education director back list for four weeks. -Lizz King APRN.KALEIGH Allergies As of Date: 02/05/2024 Noted Allergy Reaction DARVOCET A500 (PROPOXYPHENE N-ARABELLA*03/13/2005 8 - GI Upset 11 - Vomiting DARVON (PROPOXYPHENE HCL) 03/13/2005 8 - GI Upset SULFA (SULFONAMIDE ANTIBIOTICS) 03/13/2005 4 - Hives 8 - GI Upset 11 - Vomiting Date Reviewed: 11/10/2023 Reviewed by: Lizz King APRN.KALEIGH - Fully Assessed Reason for Visit: Patient [...] Encounter Status:Closed by LIZZ KING on 02/05/24 [facility] CNPMariela 01-01-2024 CNPN Telephone (AGGENS3) SONIA NOBLE ([id number]) 1945 F NFR Date Time Provider Department 01/01/24 LIZZ KING AGGENS3 During your visit today, we recorded the following information about you: Lizz King APRN.CNP 01/01/2024 10:45 AM Signed Spoke with patient [...] to build up some strength. Will place vocational technical education director back list at this time. -Lizz King APRN.CNP Allergies As of Date: 01/01/2024 Noted Allergy [...] Encounter Status:Closed by LIZZ KING on 01/01/24 [facility] Ronal 11-24-2023 JACQUELYN Telephone (AGGENS4) SONIA NOBLE ([id number]) 1945 F NFR Date Time Provider Department 11/24/23 CHASITY MIR During your visit today, we recorded the [...] me back and get scheduled. Amelie Rai Allergies As of Date: 11/24/2023 Noted Allergy Reaction DARVOCET A500 (PROPOXYPHENE N-ARABELLA*03/13/2005 8 - GI Upset 11 - Vomiting DARVON (PROPOXYPHENE HCL) 03/13/2005 8 - GI Upset SULFA (SULFONAMIDE ANTIBIOTICS) 03/13/2005 4 - Hives 8 - GI Upset 11 - Vomiting Date Reviewed: 11/10/2023 Reviewed by: Lizz King APRN.DATABASE ADMIN - Fully Assessed Reason for Visit: Appointment [...] Encounter Status:Closed by AMELIE RAI on 11/24/23 [facility] KALEIGHN Telephone (AGGENS3) SONIA NOBLE ([id number]) 1945 F NFR Date Time Provider Department 11/23/23 LIZZ KING3 During your visit today, we recorded the following information about you: Lizz King APRN.CNP 11/23/2023 12:49 PM Signed Spoke with patient on the phone, she reports that she fell and broke her hip on 11/12/2023. She had surgical repair at [facility] and is now currently doing rehab. [...] Date Reviewed: 11/10/2023 Reviewed by: Lizz King APRN.DATABASE ADMIN - Fully Assessed Reason for Visit: Patient [...] Encounter Status:Closed by LIZZ KING on 11/23/23 [facility] CNOVon 11-10-2023 CNOV Office Visit (AGGENS3) SONIA NOBLE ([id number]) 1945 F NFR Date Time Provider Department 11/10/23 3:00 PM LIZZ KING3 During your visit today, we recorded the following information about you: Pulse Respiration Blood pressure Weight 84/minute 18/minute 145/86 56.7 kg Height 1.549 m Lizz King APRN.DATABASE ADMIN 11/10/2023 3:25 PM Signed Incentive Spirometer: -Start [...] lean beef, salmon, tofu, peanut butter, eggs, peruvian yogurt, cottage cheese, black beans, lentils -Make [...] member be designated as your power of defense attorney in the event you cannot speak for [...] records with the designated Durable Power of Lab Support Tech. -A great web site for information: www.[employer] Sensory Aids: -If you have any sensory [...] of smoking cessation -Resourceful web site: www.quitforsurgery.co - [facility] NAMED [facility] smoke cessation resources: 1(986)-QUIT-NOW Lizz King APRN.CNP 11/10/2023 4:04 PM Signed Lizz King APRN.CNP [facility] [address] [facility], [address] [place] [id number] Patient: Sonia Noble Date of : 1945 [...] GI s (more content not included)... Normal [facility] RF Gastrointestinal tract up per Views W air contrast PO and W barium contrast Chevy 11-10-2023 IMPRESSION: 6 x 5 cm hiatal hernia with mid esophageal gastroesophageal reflux. Quick Technician: SHAKIR Transcribe Date/Time: Nov 10 2023 3:34P Dictated by : NANCY MALONE MD This examination was interpreted and the report reviewed and electronically signed by: NANCY MALONE MD on Nov 10 2023 3:38PM EST [employer] * * *Final Report* * * DATE [...] upper GI study was performed by a licensed physical therapist assistant. 7 images were submitted for interpretation. [...] vertebroplasty at a lower thoracic compression fracture. [employer] Provider, [facility] - 11/10/2023 * * *Final Report* * [...] upper GI study was performed by a licensed physical therapist assistant. 7 images were submitted for interpretation. [...] hiatal hernia with mid esophageal gastroesophageal reflux. Quick Technician: SHAKIR Transcribe Date/Time: Nov 10 2023 3:34P Dictated by : NANCY MALONE MD This examination was interpreted and the report reviewed and electronically signed by: NANCY MALONE MD on Nov 10 2023 3:38PM EST [facility] Radiology Study observation (narrative) [facility] RF Gastrointestinal tract up per Views W air contrast PO and W barium contrast POOrdered By: [facility]cf Provider on 11-10-2023 [facility] XR UPPER GI DOUBLE CONTRAST/ AIRon 11-10-2023 [...] upper GI study was performed by a licensed physical therapist assistant. 7 images were submitted for interpretation. [...] hiatal hernia with mid esophageal gastroesophageal reflux. Quick Technician: PSCB Transcribe Date/Time: Nov 10 2023 3:34P Dictated by : NANCY MALONE MD This examination was interpreted and the report reviewed and electronically signed by: NANCY MALONE MD on Nov 10 2023 3:38PM EST [id number] N [facility] 11-06-2023 CNPN Telephone (AGGENS4) SONIA NOBLE ([id number]) 1945 F NFR Date Time Provider Department 11/06/23 CHASITY MIR AGGENS4 During your visit today, [...] dysphagia [R13.19] Order(s):SURGICAL REQUEST - ELECTIVE (11/2019) [[id number]] Order #: [id number]: 1 Prescriptions as of 11/06/2023 - pravastatin [...] gastritis [K29.60] 12/28/2015 Encounter Status:Closed by LETY REESE on 11/06/23 Normal [facility] CBC W Auto Differential pane l (Bld)on 11-02-2023 Basophils (Bld) [#/Vol] 0.06 10*3/uL Normal <0.11 [facility] Comment on above: Order Comment: Speci men Type: BLOOD SPECIMEN Ordering Facility: [facility] Address: [address] [place] [address] Performed By: #### 5 7021-8 #### [facility] CLIA [id number] [address] [place] [address] [place] Basophils/100 WBC (Bld) 0.9 % Normal C [facility] Comment on above: Order Comment: Speci men Type: BLOOD SPECIMEN Ordering Facility: [facility] Address: [address] [place] [address] Performed By: #### 5 7021-8 #### [facility] CLIA [id number] [address] [place] [address] [place] Differential cell count method Nom (Bld) Auto Normal [facility] Comment on above: Order Comment: Speci men Type: BLOOD SPECIMEN Ordering Facility: [facility] Address: [address] [place] [address] Performed By: #### 5 7021-8 #### [facility] CLIA [id number] [address] [place] [address] [place] Eosinophils (Bld) [#/Vol] 0.31 10*3/uL Normal <0.46 [facility] Comment on above: Order Comment: Speci men Type: BLOOD SPECIMEN Ordering Facility: [facility] Address: [address] [place] [address] Performed By: #### 5 7021-8 #### [facility] CLIA [id number] [address] [place] [address] [place] Eosinophils/100 WBC (Bld) 4.5 % Normal [facility] Comment on above: Order Comment: Speci men Type: BLOOD SPECIMEN Ordering Facility: [facility] Address: [address] [place] [address] Performed By: #### 5 7021-8 #### [facility] CLIA [id number] [address] [place] [address] [place] Erythrocyte distribution width (RBC) [Ratio] 14.7 % Normal 11.5-15.0 [facility] Comment on above: Order Comment: Speci men Type: BLOOD SPECIMEN Ordering Facility: [facility] Address: [address] [place] [address] Performed By: #### 5 7021-8 #### [facility] CLIA [id number] [address] [place] [address] [place] Hematocrit (Bld) [Volume fraction] 41.4 % Normal 36.0-46.0 [facility] Comment on above: Order Comment: Speci men Type: BLOOD SPECIMEN Ordering Facility: [facility] Address: [address] [place] [address] Performed By: #### 5 7021-8 #### [facility] CLIA [id number] [address] [place] [address] [place] Hemoglobin (Bld) [Mass/Vol] 13.0 g/dL Normal 11.5-15.5 [facility] Comment on above: Order Comment: Speci men Type: BLOOD SPECIMEN Ordering Facility: [facility] Address: [address] [place] [address] Performed By: #### 5 7021-8 #### [facility] CLIA [id number] [address] [place] [address] [place] Immature granulocytes (Bld) [#/Vol] 10*3/uL Normal <0.10 [facility] Comment on above: Order Comment: Speci men Type: BLOOD SPECIMEN Ordering Facility: [facility] Address: [address] [place] [address] Performed By: #### 5 7021-8 #### [facility] CLIA [id number] [address] [place] [address] [place] Immature granulocytes/100 WBC (Bld) 0.3 % Normal [facility] Comment on above: Order Comment: Speci men Type: BLOOD SPECIMEN Ordering Facility: [facility] Address: [address] [place] [address] Performed By: #### 5 7021-8 #### [facility] CLIA [id number] [address] [place] [address] [place] Lymphocytes (Bld) [#/Vol] 1.71 10*3/uL Normal 1.00-4.00 [facility] Comment on above: Order Comment: Speci men Type: BLOOD SPECIMEN Ordering Facility: [facility] Address: [address] [place] [address] Performed By: #### 5 7021-8 #### [facility] CLIA [id number] [address] [place] [address] [place] Lymphocytes/100 WBC (Bld) 24.9 % Normal [facility] Comment on above: Order Comment: Speci men Type: BLOOD SPECIMEN Ordering Facility: [facility] Address: [address] [place] [address] Performed By: #### 5 7021-8 #### [facility] CLIA [id number] [address] [place] [address] [place] MCH (RBC) [Entitic mass] 29.5 pg Normal 26.0-34.0 [facility] Comment on above: Order Comment: Speci men Type: BLOOD SPECIMEN Ordering Facility: [facility] Address: [address] [place] [address] Performed By: #### 5 7021-8 #### [facility] CLIA [id number] [address] [place] [address] [place] MCHC (RBC) [Mass/Vol] 31.4 g/dL Normal 30.5-36.0 [facility] Comment on above: Order Comment: Speci men Type: BLOOD SPECIMEN Ordering Facility: [facility] Address: [address] [place] [address] Performed By: #### 5 7021-8 #### [facility] CLIA [id number] [address] [place] [address] [place] MCV (RBC) [Entitic vol] 94.1 fL Normal 80.0-100.0 C [facility] Comment on above: Order Comment: Speci men Type: BLOOD SPECIMEN Ordering Facility: [facility] Address: [address] [place] [address] Performed By: #### 5 7021-8 #### [facility] CLIA [id number] [address] [place] [address] [place] Monocytes (Bld) [#/Vol] 0.56 10*3/uL Normal <0.87 [facility] Comment on above: Order Comment: Speci men Type: BLOOD SPECIMEN Ordering Facility: [facility] Address: [address] [place] [address] Performed By: #### 5 7021-8 #### [facility] CLIA [id number] [address] [place] [address] [place] Monocytes/100 WBC (Bld) 8.1 % Normal [facility] Comment on above: Order Comment: Speci men Type: BLOOD SPECIMEN Ordering Facility: [facility] Address: [address] [place] [address] Performed By: #### 5 7021-8 #### [facility] CLIA [id number] [address] [place] [address] [place] Neutrophils (Bld) [#/Vol] 4.22 10*3/uL Normal 1.45-7.50 [facility] Comment on above: Order Comment: Speci men Type: BLOOD SPECIMEN Ordering Facility: [facility] Address: [address] [place] [address] Performed By: #### 5 7021-8 #### [facility] CLIA [id number] [address] [place] [address] [place] Neutrophils/100 WBC (Bld) 61.3 % Normal [facility] Comment on above: Order Comment: Speci men Type: BLOOD SPECIMEN Ordering Facility: [facility] Address: [address] [place] [address] Performed By: #### 5 7021-8 #### [facility] CLIA [id number] [address] [place] [address] [place] Nucleated RBC (Bld) [#/Vol] 10*3/uL Normal <0.01 [facility] Comment on above: Order Comment: Speci men Type: BLOOD SPECIMEN Ordering Facility: [facility] Address: [address] [place] [address] Performed By: #### 5 7021-8 #### [facility] CLIA [id number] [address] [place] [address] [place] Nucleated RBC/100 WBC (Bld) [Ratio] 0.0 /100 WBC Normal [facility] Comment on above: Order Comment: Speci men Type: BLOOD SPECIMEN Ordering Facility: [facility] Address: [address] [place] [address] Performed By: #### 5 7021-8 #### [facility] CLIA [id number] [address] [place] [address] [place] Platelet mean volume (Bld) [Entitic vol] 11.7 fL Normal 9.0-12.7 [facility] Comment on above: Order Comment: Speci men Type: BLOOD SPECIMEN Ordering Facility: [facility] Address: [address] [place] [address] Performed By: #### 5 7021-8 #### [facility] CLIA [id number] [address] [place] [address] [place] Platelets (Bld) [#/Vol] 218 10*3/uL Normal 150-400 [facility] Comment on above: Order Comment: Speci men Type: BLOOD SPECIMEN Ordering Facility: [facility] Address: [address] [place] [address] Performed By: #### 5 7021-8 #### [facility] CLIA [id number] [address] [place] [address] [place] RBC (Bld) [#/Vol] 4.40 10*6/uL Normal 3.90-5.20 [facility] Comment on above: Order Comment: Speci men Type: BLOOD SPECIMEN Ordering Facility: [facility] Address: [address] [place] [address] Performed By: #### 5 7021-8 #### [facility] CLIA [id number] [address] [place] [address] [place] WBC (Bld) [#/Vol] 6.88 10*3/uL Normal 3.70-11.00 [facility] Comment on above: Order Comment: Speci men Type: BLOOD SPECIMEN Ordering Facility: [facility] Address: [address] [place] [address] Performed By: #### 5 7021-8 #### [facility] CLIA [id number] [address] [place] [address] [id number] [place] [address] OF [facility] CNNURSEon 11-02-2023 [facility] Nurse Visit (FAMPWS) SONIA NOBLE ([id number]) 1945 F NFR Date Time Provider Department 11/02/23 10:45 AM [place] [facility] During your visit today, we recorded the following information about you: Claudia Do LPN 11/02/2023 10:35 AM Signed Patient presents for EKG per Dr Mir. Denies any problems at this time. Tolerated procedure well. Claudia Do LPN Referring Provider: CHASITY MIR [[id number]] Allergies As of Date: 11/02/2023 Noted Allergy [...] hernia [K44.9] Order(s):ECG COMPLETE [ECG01] Order #: [id number] Prescriptions as of 11/02/2023 - pravastatin (PRAVACHOL) [...] Status:Closed by CLAUDIA DO on 11/02/23 Normal [facility] Comprehensive metabolic 2000 panelon 11-02-2023 Albumin [Mass/Vol] 3.9 g/dL Normal 3.9-4.9 [facility] Comment on above: Order Comment: Speci men Type: BLOOD SPECIMEN Ordering Facility: [facility] Address: [address] [place] [address] Performed By: #### 2 4323-8 #### [facility] CLIA [id number] [address] [place] [address] [place] [address] [place] ALP [Catalytic activity/Vol] 151 U/L High 34-123 [facility] Comment on above: Order Comment: Speci men Type: BLOOD SPECIMEN Ordering Facility: [facility] Address: [address] [id number] Performed By: #### 2 4323-8 #### [facility] CLIA [id number] [address] [place] [address] [place] ALT [Catalytic activity/Vol] 19 U/L Normal 7-38 [facility] Comment on above: Order Comment: Speci men Type: BLOOD SPECIMEN Ordering Facility: [facility] Address: [address] [place] [address] Performed By: #### 2 4323-8 #### [facility] CLIA [id number] [address] [place] [address] [place] Anion gap [Moles/Vol] 10 mmol/L Normal 8-15 [facility] Comment on above: Order Comment: Speci men Type: BLOOD SPECIMEN Ordering Facility: [facility] Address: [address] [place] [address] Performed By: #### 2 4323-8 #### [facility] CLIA [id number] [address] [place] [address] [place] AST [Catalytic activity/Vol] 37 U/L High 13-35 [facility] Comment on above: Order Comment: Speci men Type: BLOOD SPECIMEN Ordering Facility: [facility] Address: [address] [place] [id number] Performed By: #### 2 4323-8 #### [facility] CLIA [id number] [address] [place] [address] [place] Bilirubin [Mass/Vol] 0.3 mg/dL Normal 0.2-1.3 [facility] Comment on above: Order Comment: Speci men Type: BLOOD SPECIMEN Ordering Facility: [facility] Address: [address] [place] [id number] Performed By: #### 2 4323-8 #### [facility] CLIA [id number] [address] [place] [address] [place] Calcium [Mass/Vol] 9.2 mg/dL Normal 8.5-10.2 [facility] Comment on above: Order Comment: Speci men Type: BLOOD SPECIMEN Ordering Facility: [facility] Address: [address] [place] [address] Performed By: #### 2 4323-8 #### [facility] CLIA [id number] [address] [place] [address] [place] Chloride [Moles/Vol] 101 mmol/L Normal 98-107 [facility] Comment on above: Order Comment: Speci men Type: BLOOD SPECIMEN Ordering Facility: [facility] Address: [address] [place] [address] Performed By: #### 2 4323-8 #### [facility] [facility] CLIA [id number] [address] [place] [address] [place] CO2 [Moles/Vol] 22 mmol/L Normal 22-30 [facility] Comment on above: Order Comment: Speci men Type: BLOOD SPECIMEN Ordering Facility: [facility] Address: [address] [place] [address] Performed By: #### 2 4323-8 #### [facility] CLIA [id number] [address] [place] [address] [place] Creatinine [Mass/Vol] 0.78 mg/dL Normal 0.58-0.96 [facility] Comment on above: Order Comment: Speci men Type: BLOOD SPECIMEN Ordering Facility: [facility] Address: [address] [place] [address] Performed By: #### 2 4323-8 #### [facility] CLIA [id number] [address] [place] [address] [place] Creatinine and Glomerular filtration rate.predicted panel (S/P/Bld) 78 mL/min/1.73m??? Normal >=60 [facility] Comment on above: Order Comment: Moris garcia Type: BLOOD SPECIMEN Ordering Facility: [facility] Address: [address] [place] [address] Result Comment: [place] mated Glomerular Filtration Rate [...] GFR. Performed By: #### 2 4323-8 #### [facility] CLIA [id number] [address] [place] [address] [place] Glucose [Mass/Vol] 91 mg/dL Normal 74-99 [facility] Comment on above: Order Comment: Moris garcia Type: BLOOD SPECIMEN Ordering Facility: [facility] Address: [address] [place] [address] Result Comment: The [place] [employer] Association (ADA) provides guidance for cutoff [...] Standards of Medical Care in Diabetes 2016, [place] [employer]. Diabetes Care. 2016.39(Suppl 1). Performed By: #### 2 4323-8 #### [facility] CLIA [id number] [address] [place] [address] [place] Potassium [Moles/Vol] 4.7 mmol/L Normal 3.7-5.1 [facility] Comment on above: Order Comment: Moris garcia Type: BLOOD SPECIMEN Ordering Facility: [facility] Address: [address] [place], [place] [address] Performed By: #### 2 4323-8 #### [facility] CLIA [id number] [address] [place] [address] [place] Protein [Mass/Vol] 6.9 g/dL Normal 6.3-8.0 [facility] Comment on above: Order Comment: Speci men Type: BLOOD SPECIMEN Ordering Facility: [facility] Address: [address] [place] [address] Performed By: #### 2 4323-8 #### [facility] CLIA [id number] [address] [place] [address] [place] Sodium [Moles/Vol] 133 mmol/L Low 136-144 [facility] Comment on above: Order Comment: Speci men Type: BLOOD SPECIMEN Ordering Facility: [facility] Address: [address] [place] [address] Performed By: #### 2 4323-8 #### [facility] CLIA [id number] [address] [place] [address] [place] Urea nitrogen [Mass/Vol] 11 mg/dL Normal 7-21 [facility] Comment on above: Order Comment: Speci men Type: BLOOD SPECIMEN Ordering Facility: [facility] Address: [address] [place] [address] Performed By: #### 2 4323-8 #### [facility] IA [id number] [address] [place] [address] [place] ECG COMPLETEon 11-02-2023 ECG COMPLETE Ventricular Rate : 8 0 BPM Atrial Rate : 80 BPM P-R Interval : 194 ms QRS Duration : 78 ms Q-T Interval : 392 ms QTC Calculation(Bazett) : 452 ms Calculated P [place] : 20 degrees Calculated R [place] : -29 degrees Calculated T [place] : 17 degrees NORMAL SINUS RHYTHM Confirmed by TANYA LICEA DO ([id number]) on 11/03/2023 8:10:20 AM NAME : SONIA NOBLE PID : [id number] : 1945 Gender : Female Race : ORD : [id number] Procedure Date : Nov 02 2023 10:46:47 Edit Date : Nov 03 2023 08:10:23 Diagnosis: NORMAL SINUS RHYTHM Confirmed by TANYA LICEA DO ([id number]) on 11/03/2023 8:10:20 AM Test Reason : Location : 185 : [facility] Overread By : TANYA LICEA DO Edited By : TANYA LICEA DO Referred By : CHASITY MIR Acquired by : CLAUDIA DO, Normal [facility] NICOTINE AND METAB, URon URIN ANABASINE QUANT <5 Normal [facility] Comment on above: Order Comment: Speci men Type: URINE SPECIMEN Ordering Facility: [facility] Address: [address] [place] [address] Performed By: #### U NICOT #### [facility] CLIA [id number] [address] [place] [address] URIN COTININE QUANT 308 ng/mL Normal [facility] Comment on above: Order Comment: Speci men Type: URINE SPECIMEN Ordering Facility: [facility] Address: [address] [place] [address] Performed By: #### U NICOT #### [facility] CLIA [id number] [address] [place] [address] URIN NICOTINE QUANT 287 ng/mL Normal [facility] Comment on above: Order Comment: Speci men Type: URINE SPECIMEN Ordering Facility: [facility] Address: [address] [place] [address] Result Comment: INTE RPRETIVE INFORMATION: Nicotine and Metabolites, Urine, Quantitative Methodology: Quantitative Liquid Chromatography-Tandem Mass Spectrometry Positive cutoff: Nicotine 15 ng/mL Cotinine 15 ng/mL 0-DZ-Effwwkfo 50 ng/mL Anabasine 5 ng/mL For medical [...] developed and its performance characteristics determined by [facility]. It has not been cleared or approved by the [place] Food and Drug Administration. This test was performed in a CLIA certified laboratory and is intended for clinical purposes. Performed By: [facility] [address] [place] [address] [employer] Director: Wilfredo Henry MD, PhD CLIA Number: [id number] Performed By: #### U NICOT #### [facility] CLIA [id number] [address] [place] [address] URINE 3 [place] COTININE 1168 ng/mL Normal [facility] Comment on above: Order Comment: Speci men Type: URINE SPECIMEN Ordering Facility: [facility] Address: [address] [place] [address] Performed By: #### U NICOT #### [facility] CLIA [id number] [address] [place] [address] XR CHEST 2V FRONTAL/LATon XR CHEST 2V [...] abnormality. Healed rib fractures. Vertebral wedge deformities Quick Technician: SHAKIR Transcribe Date/Time: Nov 02 2023 2:06P Dictated by : TYLER URIAS MD This examination was interpreted and the report reviewed and electronically signed by: TYLER URIAS MD on Nov 02 2023 2:10PM EST [id number] Normal [facility] XR Chest PA and Lateralon IMPRESSION: No acute radiographic abnormality. Healed rib fractures. Vertebral wedge deformities Quick Technician: [facility] Transcribe Date/Time: Nov 02 2023 2:06P Dictated [...] deformities. Diffuse osteopenia DIVISION OF RADIOLOGY [facility]23 * * *Final Report* * [...] abnormality. Healed rib fractures. Vertebral wedge deformities Quick Technician: SHAKIR Transcribe Date/Time: Nov 02 2023 2:06P Dictated by : TYLER URIAS MD This examination was interpreted and the report reviewed and electronically signed by: TYLER URIAS MD on Nov 02 2023 2:10PM EST [facility] Radiology Study observation (narrative) Jena rodas [facility] XR Chest PA and LateralOrder ed By: [facility] Provider on 11-02-2023 [facility] CNPNon 10-29-2023 CNPN Telephone (AGGENS4) SONIA NOBLE ([id number]) 1945 F NFR Date Time Provider Department 10/29/23 CHASITY MIR AGGENS4 During your visit today, we recorded the following information about you: Brady Escobar RN 10/29/2023 10:49 AM Signed Patient given written information about esophageal manometry and the prep instructions in the office on 10/28/23. I called her today and verbally discussed and reviewed the information with the patient. All of patient's questions were answered. Patient has my contact info if she has any questions. Brady Escobar RN Allergies As of Date: 10/29/2023 Noted [...] gastritis [K29.60] 12/28/2015 Encounter Status:Closed by BRADY ESCOBAR on 10/29/23 [facility] CNGm 10-28-2023 CNOV Office Visit (AGGENS4) SONIA NOBLE ([id number]) 1945 F NFR Date Time Provider Department [...] She denies any personal history of DM, [place]/CAD, CVA/TIA or any other medical conditions aside [...] COLONOSCOPY FLX DX W/COLLJ SPEC WHEN PFRMD [id number] repeat 1 year COLONOSCOPY W/BIOPSY SINGLE/MULTIPLE 09/16/10 [...] daily. meloxic (more content not included)... Normal [facility] CNPNon 10-28-2023 [facility] Telephone (AGGENS4) GABRIELSONIA Chrissie ([id number]) 1945 F NFR Date Time Provider Department 10/28/23 CHASITY MIR AGGENS4 During your visit today, we recorded the following information about you: Lety Reese LPN 10/28/2023 9:49 AM Signed Manometry scheduled for 11/06/2023 at 900am. Prep/instructions given to patient at checkout. Lety Reese LPN Allergies As of Date: 10/28/2023 Noted [...] gastritis [K29.60] 12/28/2015 Encounter Status:Closed by LETY REESE on 10/28/23 Normal [facility] Absolute lymphocyte countOrd ered By: Ervin Darling on 08-06-2023 Lymphocytes Auto (Unsp spec) [#/Vol] 1.45 10*3/uL 0.83-4.51 [facility] Automated lymphocyte count a s percentage of total leukocytesOrdered By: Ervin Darling on 08-06-2023 Lymphocytes/100 WBC Auto (Unsp spec) 15.4 % 19-41 [facility] Bacteria identified Cx Nom ( Wound)Ordered By: Ervin Darling on 08-06-2023 Wound Culture Pseudomonas aeruginosa [facility] Basophil percentageOrdered B y: Ervin Darling on 08-06-2023 Basophils/100 WBC (Bld) 0.6 % 0-1 [facility] Bilirubin [Mass/Vol] 0.40 mg/dL 0.20-1.00 [facility] Comment on above: For patients on eltr ombopag therapy, use of Dimension [place] TBIL is not recommended. Chloride [Moles/Vol] 103 mmol/L 98-107 [facility] Eosinophils/100 WBC (Bld) 0.7 % 0-5 [facility] Glucose [Mass/Vol] 86 mg/dL 74-106 [facility] Hemoglobin (Bld) [Mass/Vol] 12.7 g/dL 12.0-15.0 [facility] Monocytes/100 WBC (Bld) 5.2 % 0-10 [facility] Neutrophils (Bld) [#/Vol] 7.3 10*3/uL 2.0-7.7 [facility] Neutrophils/100 WBC (Bld) 77.7 % 47-70 [facility] Potassium [Moles/Vol] 4.1 mmol/L 3.5-5.1 [facility] Protein [Mass/Vol] 7.2 g/dL 6.4-8.2 [facility] Sodium [Moles/Vol] 137 mmol/L 136-145 [facility] WBC (Bld) [#/Vol] 9.4 10*3/uL 4.4-11.0 [facility] Determination of erythrocyte mean corpuscular volume (MCV)Ordered By: Ervin Darling on 08-06-2023 MCV (RBC) [Entitic vol] 89.9 fL 81-99 [facility] Erythrocyte distribution wid th ratioOrdered By: Ervin Darling on 08-06-2023 Erythrocyte distribution width (RBC) [Ratio] 14.1 % 11.6-14.6 [facility] Erythrocyte distribution wid th standard deviationOrdered By: [facility] Mcdonoughdiego on 08-06-2023 Erythrocyte distribution width (RBC) [Entitic vol] 46.5 fL 35.1-43.9 [facility] Gram stain for investigation of transfusion reactionOrdered By: Ervin Darling on 08-06-2023 Microscopic observation Gram stain Nom (Unsp spec) [facility] Hematocrit Auto (Bld) [Volum e fraction]Ordered By: Ervin Darling on 08-06-2023 Hematocrit (Bld) [Volume fraction] 39.0 % 37-47 [facility] Immature granulocytes/100 WB C Auto (Bld)Ordered By: Ervin Darling on 08-06-2023 Immature granulocytes/100 WBC (Bld) 0.400 % 0.0-0.9 [facility] Comment on above: IG% - Immature Granu locytes (promyelocytes, myelocytes and metamyelocytes) > 1% indicates that a LEFT SHIFT is Present. Laboratory - Chemistry and C hemistry - challengeOrdered By: Ervin Darling on 08-06-2023 Albumin/Globulin [Mass ratio] 0.9 {ratio} 0.9-2.4 [facility] ALP [Catalytic activity/Vol] 130 U/L 45-117 [facility] ALT [Catalytic activity/Vol] 20 U/L 13-56 [facility] CO2 [Moles/Vol] 27.0 mmol/L 21.0-32.0 [facility] Globulin (S) [Mass/Vol] 3.7 g/dL 2.2-4.2 [facility] Urea nitrogen/Creatinine [Mass ratio] 10.7 mg/mg 10-20 [facility] Laboratory - Hematology and Cell countsOrdered By: Ervin Darling on 08-06-2023 MCH (RBC) [Entitic mass] 29.3 pg 27.0-32.0 [facility] MCHC (RBC) [Mass/Vol] 32.6 g/dL 32-36 [facility] Nucleated RBC/100 WBC (Bld) [Ratio] 0 % 0-5 [facility] Platelet mean volume (Bld) [Entitic vol] 10.9 fL 6.2-12.0 [facility] Platelets (Bld) [#/Vol] 237 10*3/uL 150-450 [facility] No Panel InformationOrdered By: Ervin Darling on 08-06-2023 C-Reactive Protein Extended Range 6.76 mg/L 0.0-3.0 [facility] Comment on above: C-Reactive Protein ( CRP) provides useful information for thediagnosis, therapy and monitoring of inflammatory processesand associated diseases. For the evaluation of Relative Riskfor Cardiovascular Disease, a High Sensitivity CRP (HSCRP)should be ordered. Estimated GFR (MDRD) Amer 75 mL/min >60 [facility] Comment on above: GFR Calc Estimated GFR (MDRD) Non-Af Amer 62 mL/min >60 [facility] Comment on above: Non- GFR Calc RBC Auto (Bld) [#/Vol]Ordere d By: Ervin Darling on 08-06-2023 RBC (Bld) [#/Vol] 4.34 10*6/uL 4.2-5.4 [facility] Serum or plasma calcium magdalena urement (mass/volume)Ordered By: Ervin Darling on 08-06-2023 Calcium [Mass/Vol] 9.4 mg/dL 8.5-10.1 [facility] Serum or plasma creatinine m easurement (mass/volume)Ordered By: Ervin Darling on 08-06-2023 Creatinine [Mass/Vol] 0.94 mg/dL 0.55-1.02 [facility] Comment on above: The validity of the calculated GFR & GFRAA in patients over 70 years has not been determined. Clinical correlation is essential. Serum or plasma transthyreti n measurement (mass/volume)Ordered By: Ervin Darling on 08-06-2023 Prealbumin [Mass/Vol] 16.0 mg/dL 20.0-40.0 [facility] Serum or plasma urea nitroge n measurement (mass/volume)Ordered By: Ervin Darling on 08-06-2023 Urea nitrogen [Mass/Vol] 10 mg/dL 7-18 [facility] Thin prep Papanicolaou smear with manual screeningOrdered By: Ervin Darling on 08-06-2023 Thin prep Papanicolaou smear with manual screening 3.5 g/dL 3.2-5.0 [facility] Thin prep Papanicolaou smear with manual screening 24 U/L 15-37 [facility] Thin prep Papanicolaou smear with manual screening 7 5-15 [facility] Anaerobic cultureOrdered By: Mac Hess on 08-05-2023 Bacteria identified Anaer cx Nom (Unsp spec) No anaerobic bacteria isolated. [facility] Bacteria identified Cx Nom ( Wound)Ordered By: Mac Hess on 08-05-2023 Wound Culture Pseudomonas aeruginosa [facility] Wound Culture Escherichia coli [facility] Gram stain for investigation of transfusion reactionOrdered By: Mac Hess on 08-05-2023 Microscopic observation Gram stain Nom (Unsp spec) [facility] Absolute lymphocyte countOrd ered By: Zuly Blas on 02-25-2023 Lymphocytes Auto (Unsp spec) [#/Vol] 1.07 10*3/uL 0.83-4.51 [facility] Basophil percentageOrdered B y: Zuly Blas on 02-25-2023 Basophils/100 WBC (Bld) 1.3 % 0-1 [facility] Bilirubin [Mass/Vol] 0.30 mg/dL 0.20-1.00 [facility] Comment on above: For patients on eltr ombopag therapy, use of Dimension [place] TBIL is not recommended. Chloride [Moles/Vol] 102 mmol/L 98-107 [facility] Eosinophils/100 WBC (Bld) 2.8 % 0-5 [facility] Glucose [Mass/Vol] 104 mg/dL 74-106 [facility] Comment on above: Fasting Glucose resu lt from 100 to 125 mg/dL suggests IMPAIRED HOMEOSTASIS per A.D.A. criteria. Neutrophils (Bld) [#/Vol] 3.1 10*3/uL 2.0-7.7 [facility] Neutrophils/100 WBC (Bld) 65.6 % 47-70 [facility] Potassium [Moles/Vol] 4.3 mmol/L 3.5-5.1 [facility] Protein [Mass/Vol] 6.9 g/dL 6.4-8.2 [facility] Sodium [Moles/Vol] 136 mmol/L 136-145 [facility] WBC (Bld) [#/Vol] 4.7 10*3/uL 4.4-11.0 [facility] Blood erythrocytes count (nu mber/volume)Ordered By: Zulychrissie Blas on 02-25-2023 RBC (Bld) [#/Vol] 4.50 10*6/uL 4.2-5.4 [facility] Blood hemoglobin measurement (mass/volume)Ordered By: Zuly Blas on 02-25-2023 Hemoglobin (Bld) [Mass/Vol] 13.2 g/dL 12.0-15.0 [facility] Blood lymphocytes/100 leukoc ytesOrdered By: Zuly Blas on 02-25-2023 Lymphocytes/100 WBC (Bld) 22.7 % 19-41 [facility] Blood monocytes/100 leukocyt esOrdered By: Zuly Blas on 02-25-2023 Monocytes/100 WBC (Bld) 7.0 % 0-10 [facility] Blood platelet mean volumeOr dered By: Zuly Blas on 02-25-2023 Platelet mean volume (Bld) [Entitic vol] 11.0 fL 6.2-12.0 [facility] Determination of erythrocyte mean corpuscular volume (MCV)Ordered By: Zuly Blas on 02-25-2023 MCV (RBC) [Entitic vol] 92.0 fL 81-99 [facility] Hematocrit Auto (Bld) [Volum e fraction]Ordered By: Zuly Blas on 02-25-2023 Hematocrit (Bld) [Volume fraction] 41.4 % 37-47 [facility] Laboratory - Chemistry and C hemistry - challengeOrdered By: Zuly Blas on 02-25-2023 ALP [Catalytic activity/Vol] 163 U/L 45-117 [facility] ALT [Catalytic activity/Vol] 18 U/L 13-56 [facility] CO2 [Moles/Vol] 26.0 mmol/L 21.0-32.0 [facility] Free T4 [Mass/Vol] 1.13 ng/dL 0.76-1.46 [facility] Globulin (S) [Mass/Vol] 3.7 g/dL 2.2-4.2 [facility] Urea nitrogen/Creatinine [Mass ratio] 11.2 mg/mg 10-20 [facility] Laboratory - Hematology and Cell countsOrdered By: Zuly Blas on 02-25-2023 Erythrocyte distribution width (RBC) [Entitic vol] 51.2 fL 35.1-43.9 [facility] Erythrocyte distribution width (RBC) [Ratio] 15.1 % 11.6-14.6 [facility] Immature granulocytes/100 WBC (Bld) 0.600 % 0.0-0.9 [facility] Comment on above: IG% - Immature Granu locytes (promyelocytes, myelocytes and metamyelocytes) > 1% indicates that a LEFT SHIFT is Present. MCH (RBC) [Entitic mass] 29.3 pg 27.0-32.0 [facility] Nucleated RBC/100 WBC (Bld) [Ratio] 0 % 0-5 [facility] Auto (RBC) [Mass/Vol]Or dered By: Zuly Blas on 02-25-2023 MCHC (RBC) [Mass/Vol] 31.9 g/dL 32-36 [facility] No Panel InformationOrdered By: Zuly Blas on 02-25-2023 Estimated GFR (MDRD) Amer 79 mL/min >60 [facility] Comment on above: GFR Calc Estimated GFR (MDRD) Non-Af Amer 65 mL/min >60 [facility] Comment on above: Non- GFR Calc Free Triiodothyronine (T3) pg/dL 2.2 pg/mL 2.18-3.98 [facility] Thyroid Stimulating Hormone (TSH) 0.75 uIU/mL 0.358-3.74 [facility] Platelets bldOrdered By: Carmen Blas on 02-25-2023 Platelets (Bld) [#/Vol] 257 10*3/uL 150-450 [facility] Serum or plasma albumin magdalena urement (mass/volume)Ordered By: Zuly Blas on 02-25-2023 Albumin [Mass/Vol] 3.2 g/dL 3.2-5.0 [facility] Serum or plasma albumin/glob ulin mass ratioOrdered By: Zuly Blas on 02-25-2023 Albumin/Globulin [Mass ratio] 0.9 {ratio} 0.9-2.4 [facility] Serum or plasma calcium magdalena urement (mass/volume)Ordered By: Zuly Blas on 02-25-2023 Calcium [Mass/Vol] 8.5 mg/dL 8.5-10.1 [facility] Serum or plasma creatinine m easurement (mass/volume)Ordered By: Zuly Blas on 02-25-2023 Creatinine [Mass/Vol] 0.89 mg/dL 0.55-1.02 [facility] Comment on above: The validity of the calculated GFR & GFRAA in patients over 70 years has not been determined. Clinical correlation is essential. Serum or plasma urea nitroge n measurement (mass/volume)Ordered By: Zuly Blas on 02-25-2023 Urea nitrogen [Mass/Vol] 10 mg/dL 7-18 [facility] Thin prep Papanicolaou smear with manual screeningOrdered By: Zuly Bals on 02-25-2023 Thin prep Papanicolaou smear with manual screening 24 U/L 15-37 [facility] Thin prep Papanicolaou smear with manual screening 8 5-15 [facility] Laboratory - Chemistry and C hemistry - challengeOrdered By: Zuly Blas on 12-02-2022 Free T4 [Mass/Vol] 1.30 ng/dL 0.76-1.46 [facility] No Panel InformationOrdered By: Zuly Blas on 12-02-2022 Free Triiodothyronine (T3) pg/dL 2.6 pg/mL 2.18-3.98 [facility] Thyroid Stimulating Hormone (TSH) 0.05 uIU/mL 0.358-3.74 [facility] Laboratory - Chemistry and C hemistry - challengeOrdered By: Zuly Blas on 08-27-2022 Free T4 [Mass/Vol] 1.45 ng/dL 0.76-1.46 [facility] No Panel InformationOrdered By: Zuly Blas on 08-27-2022 Free Triiodothyronine (T3) pg/dL 2.7 pg/mL 2.18-3.98 [facility] Thyroid Stimulating Hormone (TSH) 0.20 uIU/mL 0.358-3.74 [facility] Stool lactoferrin detection by immunoassayOrdered By: Dr. Blas on 05-26-2022 Lactoferrin IA Ql (Stl) [facility] Absolute lymphocyte countOrd ered By: Dr. Blas on 05-21-2022 Lymphocytes Auto (Unsp spec) [#/Vol] 1.27 10*3/uL 0.83-4.51 [facility] Basophil percentageOrdered B y: Dr. Blas on 05-21-2022 Basophils/100 WBC (Bld) 1.3 % 0-1 [facility] Bilirubin [Mass/Vol] 0.50 mg/dL 0.20-1.00 [facility] Comment on above: For patients on eltr ombopag therapy, use of Dimension [place] TBIL is not recommended. Chloride [Moles/Vol] 103 mmol/L 98-107 [facility] Eosinophils/100 WBC (Bld) 3.2 % 0-5 [facility] Glucose [Mass/Vol] 103 mg/dL 74-106 [facility] Comment on above: Fasting Glucose resu lt from 100 to 125 mg/dL suggests IMPAIRED HOMEOSTASIS per A.D.A. criteria. Neutrophils (Bld) [#/Vol] 3.3 10*3/uL 2.0-7.7 [facility] [place] Neutrophils/100 WBC (Bld) 62.5 % 47-70 [facility] [place] Potassium [Moles/Vol] 4.6 mmol/L 3.5-5.1 [facility] Protein [Mass/Vol] 7.5 g/dL 6.4-8.2 [facility] Sodium [Moles/Vol] 136 mmol/L 136-145 [facility] WBC (Bld) [#/Vol] 5.3 10*3/uL 4.4-11.0 [facility] Blood erythrocytes count (nu mber/volume)Ordered By: Dr. Blas on 05-21-2022 RBC (Bld) [#/Vol] 4.36 10*6/uL 4.2-5.4 [facility] Blood hemoglobin measurement (mass/volume)Ordered By: Dr. Blas on 05-21-2022 Hemoglobin (Bld) [Mass/Vol] 12.7 g/dL 12.0-15.0 [facility] [place] Blood lymphocytes/100 leukoc ytesOrdered By: Dr. Blas on 05-21-2022 Lymphocytes/100 WBC (Bld) 23.9 % 19-41 [facility] [place] Blood monocytes/100 leukocyt esOrdered By: Dr. Blas on 05-21-2022 Monocytes/100 WBC (Bld) 8.3 % 0-10 [facility] Blood platelet mean volumeOr dered By: Dr. Blas on 05-21-2022 Platelet mean volume (Bld) [Entitic vol] 10.8 fL 6.2-12.0 [facility] [place] Determination of erythrocyte mean corpuscular volume (MCV)Ordered By: Dr. Blas on 05-21-2022 MCV (RBC) [Entitic vol] 90.1 fL 81-99 [facility] Hematocrit Auto (Bld) [Volum e fraction]Ordered By: Dr. Blas on 05-21-2022 Hematocrit (Bld) [Volume fraction] 39.3 % 37-47 [facility] [place] Laboratory - Chemistry and C hemistry - challengeOrdered By: Dr. Blas on 05-21-2022 ALP [Catalytic activity/Vol] 136 U/L 45-117 [facility] [place] ALT [Catalytic activity/Vol] 27 U/L 13-56 [facility] [place] CO2 [Moles/Vol] 27.0 mmol/L 21.0-32.0 [facility] [place] Free T4 [Mass/Vol] 1.41 ng/dL 0.76-1.46 [facility] Globulin (S) [Mass/Vol] 4.2 g/dL 2.2-4.2 [facility] Urea nitrogen/Creatinine [Mass ratio] 12.1 mg/mg 10-20 [facility] [place] Laboratory - Hematology and Cell countsOrdered By: Dr. Blas on 05-21-2022 Erythrocyte distribution width (RBC) [Entitic vol] 49.2 fL 35.1-43.9 [facility] [place] Erythrocyte distribution width (RBC) [Ratio] 14.7 % 11.6-14.6 [facility] [place] Immature granulocytes/100 WBC (Bld) 0.800 % 0.0-0.9 [facility] [place] Comment on above: IG% - Immature Granu locytes (promyelocytes, myelocytes and metamyelocytes) > 1% indicates that a LEFT SHIFT is Present. MCH (RBC) [Entitic mass] 29.1 pg 27.0-32.0 [facility] [place] Nucleated RBC/100 WBC (Bld) [Ratio] 0 % 0-5 [facility] [place] MCHC Auto (RBC) [Mass/Vol]Or dered By: Dr. Blas on 05-21-2022 MCHC (RBC) [Mass/Vol] 32.3 g/dL 32-36 [facility] No Panel InformationOrdered By: Dr. Blas on 05-21-2022 Estimated GFR (MDRD) Amer 77 mL/min >60 [facility] [place] Comment on above: GFR Calc Estimated GFR (MDRD) Non-Af Amer 64 mL/min >60 [facility] [place] Comment on above: Non- GFR Calc Free Triiodothyronine (T3) pg/dL 1.8 pg/mL 2.18-3.98 [facility] [place] Thyroid Stimulating Hormone (TSH) 1.37 uIU/mL 0.358-3.74 [facility] [place] Platelets bldOrdered By: Dr. Blas on 05-21-2022 Platelets (Bld) [#/Vol] 295 10*3/uL 150-450 [facility] [place] Serum or plasma albumin magdalena urement (mass/volume)Ordered By: Dr. Blas on 05-21-2022 Albumin [Mass/Vol] 3.3 g/dL 3.2-5.0 [facility] Serum or plasma albumin/glob ulin mass ratioOrdered By: Dr. Blas on 05-21-2022 Albumin/Globulin [Mass ratio] 0.8 {ratio} 0.9-2.4 [facility] [place] Serum or plasma calcium magdalena urement (mass/volume)Ordered By: Dr. Blas on 05-21-2022 Calcium [Mass/Vol] 9.1 mg/dL 8.5-10.1 [facility] Serum or plasma creatinine m easurement (mass/volume)Ordered By: Dr. Blas on 05-21-2022 Creatinine [Mass/Vol] 0.91 mg/dL 0.55-1.02 [facility] Comment on above: The validity of the calculated GFR & GFRAA in patients over 70 years has not been determined. Clinical correlation is essential. Serum or plasma urea nitroge n measurement (mass/volume)Ordered By: Dr. Blas on 05-21-2022 Urea nitrogen [Mass/Vol] 11 mg/dL 7-18 [facility] [place] Thin prep Papanicolaou smear with manual screeningOrdered By: Dr. Blas on 05-21-2022 Thin prep Papanicolaou smear with manual screening 31 U/L 15-37 [facility] [place] Thin prep Papanicolaou smear with manual screening 6 5-15 [facility] [place] Laboratory - Microbiology an d Antimicrobial susceptibilityon 10-15-2021 SARS-CoV-2 (COVID-19) RNA RADHA+probe Ql (Unsp spec) Not detected Not Detect [facility] [place] Work Phone: Comment on above: Normal Reference Ran ge: Not DetectedMethod:(RT-PCR) real-time reverse transcriptase PCRLuminex BETH Instrument*The Food and Drug Administration (FDA) has issued an Emergency Use Authorization (EAU) for the BETH SARS-CoV-2 Assay for the rapid detection of [...] Time Vital Sign Value Performing Clinician Facility 11-17-2024 09:05-0400 Body height 154.[address] Zuly Blas DO Work Phone: [facility] [place] 11-17-2024 09:05-0400 Body mass index (BMI) [Ratio] 22.7 kg/m2 Dr. Zuly Blas DO Work Phone: [facility] [place] 11-17-2024 09:05-0400 Body weight 54.[address] Zuly Blas DO Work Phone: [facility] [place] 11-10-2023 14:45-0400 Body height 154.9 cm Lizz King APRN.DATABASE ADMIN Work Phone: [facility] 11-10-2023 14:45-0400 Body mass index (BMI) [Ratio] 23.62 kg/m2 Lizz King APRN.DATABASE ADMIN Work Phone: [facility] 11-10-2023 14:45-0400 Body weight 56.7 kg Lizz King APRN.DATABASE ADMIN Work Phone: [facility] 11-10-2023 14:45-0400 Diastolic blood pressure 86 mm[Hg] Lizz King APRN.DATABASE ADMIN Work Phone: [facility] 11-10-2023 14:45-0400 Heart rate 84 /min Lizz Boozer SKIN CARE TECHNICIAN.DATABASE ADMIN Work Phone: [facility] 11-10-2023 14:45-0400 Respiratory rate 18 /min Lizz Boozer SKIN CARE TECHNICIAN.DATABASE ADMIN Work Phone: [facility] 11-10-2023 14:45-0400 SaO2% (BldA) [Mass fraction] 97 % Lizz Boozer SKIN CARE TECHNICIAN.DATABASE ADMIN Work Phone: [facility] Comment on above: on RA 11-10-2023 14:45-0400 Systolic blood pressure 145 mm[Hg] Lizz Boozer SKIN CARE TECHNICIAN.DATABASE ADMIN Work Phone: [facility] 10-28-2023 08:06-0400 Body height 154.9 cm Chasity Mir MD Work Phone: [facility] 10-28-2023 08:06-0400 Body mass index (BMI) [Ratio] 23.54 kg/m2 Chasity Mir MD Work Phone: [facility] 10-28-2023 08:06-0400 Body weight 56.52 kg Chasity Mir MD Work Phone: [facility] 10-28-2023 08:06-0400 Diastolic blood pressure 61 mm[Hg] Chasity Mir MD Work Phone: [facility] 10-28-2023 08:06-0400 Heart rate 87 /min Chasity Mir MD Work Phone: [facility] 10-28-2023 08:06-0400 SaO2% (BldA) [Mass fraction] 97 % Chasity Mir MD Work Phone: [facility] 10-28-2023 08:06-0400 Systolic blood pressure 106 mm[Hg] Chasity Mir MD Work Phone: [facility] 08-06-2023 09:59-0400 Body height 160.[address] Zuly Blas Work Phone: [facility] [place] 08-06-2023 09:59-0400 Body mass index (BMI) [Ratio] 22.4 kg/m2 Dr. Zuly Blas Work Phone: [facility] [place] 08-06-2023 09:59-0400 Body temperature 98.2 [degF] Dr. Zuly Blas Work Phone: [facility] [place] 08-06-2023 09:59-0400 Body weight 57.[address] Zuly Blas Work Phone: [facility] [place] 08-06-2023 09:59-0400 Diastolic blood pressure 69 mm[Hg] Dr. Zuly Blas Work Phone: [facility] [place] 08-06-2023 09:59-0400 Heart rate 94 /min Dr. Zuly Blas Work Phone: [facility] [place] 08-06-2023 09:59-0400 Respiratory rate 18 /min Dr. Zuly Blas Work Phone: [facility] [place] 08-06-2023 09:59-0400 Systolic blood pressure 136 mm[Hg] Dr. Zuly Blas Work Phone: [facility] [place] 08-05-2023 11:36-0400 Body temperature 97.9 [degF] Dr. Zuly Blas Work Phone: [facility] [place] 08-05-2023 11:36-0400 Diastolic blood pressure 84 mm[Hg] Dr. Zuly Blas Work Phone: [facility] [place] 08-05-2023 11:36-0400 Heart rate 91 /min Dr. Zuly Blas Work Phone: [facility] [place] 08-05-2023 11:36-0400 Respiratory rate 17 /min Dr. Zuly Blas Work Phone: [facility] [place] 08-05-2023 11:36-0400 SaO2% (BldA) [Mass fraction] 99 % Dr. Zuly Blas Work Phone: [facility] [place] 08-05-2023 11:36-0400 Systolic blood pressure 150 mm[Hg] Dr. Zuly Blas Work Phone: [facility] [place] 07-31-2023 09:25-0400 Body temperature 97.4 [degF] Dr. Zuly Blas Work Phone: [facility] [place] 07-31-2023 09:25-0400 Diastolic blood pressure 63 mm[Hg] Dr. Zuly Blas Work Phone: [facility] [place] 07-31-2023 09:25-0400 Heart rate 79 /min Dr. Zuly Blas Work Phone: [facility] [place] 07-31-2023 09:25-0400 Respiratory rate 16 /min Dr. Zuly Blas Work Phone: [facility] [place] 07-31-2023 09:25-0400 SaO2% (BldA) [Mass fraction] 97 % Dr. Zuly Blas Work Phone: [facility] [place] 07-31-2023 09:25-0400 Systolic blood pressure 106 mm[Hg] Dr. Zuly Blas Work Phone: [facility] [place] 07-31-2023 09:07-0400 Inhaled oxygen flow rate 3 L/min Dr. Zuly Blas Work Phone: [facility] [place] 07-31-2023 07:59-0400 Body height 160.[address] Zuly Blas Work Phone: [facility] [place] 07-31-2023 07:59-0400 Body mass index (BMI) [Ratio] 22.3 kg/m2 Dr. Zuly Blas Work Phone: [facility] [place] 07-31-2023 07:59-0400 Body weight 57.[address] Zuly Blas Work Phone: [facility] [place] 07-27-2023 14:18-0400 Body temperature 98.1 [degF] Dr. Zuly Blas Work Phone: [facility] [place] 07-27-2023 14:18-0400 Diastolic blood pressure 76 mm[Hg] Dr. Zuly Blas Work Phone: [facility] [place] 07-27-2023 14:18-0400 Heart rate 93 /min Dr. Zuly Blas Work Phone: [facility] [place] 07-27-2023 14:18-0400 Respiratory rate 12 /min Dr. Zuly Blas Work Phone: [facility] [place] 07-27-2023 14:18-0400 SaO2% (BldA) [Mass fraction] 98 % Dr. Zuly Blas Work Phone: [facility] [place] 07-27-2023 14:18-0400 Systolic blood pressure 110 mm[Hg] Dr. Zuly Blas Work Phone: [facility] [place] 07-09-2023 09:03-0400 Body mass index (BMI) [Ratio] 24.3 kg/m2 Dr. Zuly Blas Work Phone: [facility] [place] 07-09-2023 09:03-0400 Body temperature 97.4 [degF] Dr. Zuly Blas Work Phone: [facility] [place] 07-09-2023 09:03-0400 Body weight 59.[address] Zuly Blas Work Phone: [facility] [place] 07-09-2023 09:03-0400 Diastolic blood pressure 77 mm[Hg] Dr. Zuly Blas Work Phone: [facility] [place] 07-09-2023 09:03-0400 Heart rate 84 /min Dr. Zuly Blas Work Phone: [facility] [place] 07-09-2023 09:03-0400 Respiratory rate 18 /min Dr. Zuly Blas Work Phone: [facility] [place] 07-09-2023 09:03-0400 SaO2% (BldA) [Mass fraction] 98 % Dr. Zuly Blas Work Phone: [facility] [place] 07-09-2023 09:03-0400 Systolic blood pressure 120 mm[Hg] Dr. Zuly Blas Work Phone: [facility] [place] 12-08-2022 14:11-0400 Body height 157.[address] Zuly Blas Work Phone: [facility] [place] 12-08-2022 14:11-0400 Body mass index (BMI) [Ratio] 24.5 kg/m2 Dr. Zuly Blas Work Phone: [facility] [place] 12-08-2022 14:11-0400 Body temperature 97.2 [degF] Dr. Zuly Blas Work Phone: [facility] [place] 12-08-2022 14:11-0400 Body weight 60.[address] Zuly Blas Work Phone: [facility] [place] 12-08-2022 14:11-0400 Diastolic blood pressure 85 mm[Hg] Dr. Zuly Blas Work Phone: [facility] [place] 12-08-2022 14:11-0400 Heart rate 101 /min Dr. Zuly Blas Work Phone: [facility] [place] 12-08-2022 14:11-0400 Respiratory rate 14 /min Dr. Zuly Blas Work Phone: [facility] [place] 12-08-2022 14:11-0400 SaO2% (BldA) [Mass fraction] 98 % Dr. Zuly Blas Work Phone: [facility] [place] 12-08-2022 14:11-0400 Systolic blood pressure 110 mm[Hg] Dr. Zuly Blas Work Phone: [facility] [place] 03-14-2022 13:15-0500 Body height 154.94 cm [facility] 03-14-2022 13:15-0500 Body mass index (BMI) [Ratio] 26.4 kg/m2 [facility] 03-14-2022 13:15-0500 Body temperature 97 [degF] [facility] 03-14-2022 13:15-0500 Body weight 63.5 kg [facility] 03-14-2022 13:15-0500 Diastolic blood pressure 71 mm[Hg] [facility] 03-14-2022 13:15-0500 Heart rate 93 /min [facility] 03-14-2022 13:15-0500 Respiratory rate 18 /min [facility] 03-14-2022 13:15-0500 SaO2% (BldA) [Mass fraction] 98 % [facility] [place] 03-14-2022 13:15-0500 Systolic blood pressure 126 mm[Hg] [facility] 09-17-2021 09:04-0400 Diastolic blood pressure 64 mm[Hg] [facility] Work Phone: 09-17-2021 09:04-0400 Heart rate 72 /min [facility] Work Phone: 09-17-2021 09:04-0400 Systolic blood pressure 122 mm[Hg] [facility] Work Phone: 09-17-2021 08:33-0400 Body height 160.02 cm [facility] Work Phone: 09-17-2021 08:33-0400 Body mass index (BMI) [Ratio] 26.2 kg/m2 [facility] [place] Work Phone: 09-17-2021 08:33-0400 Body temperature 96.8 [degF] [facility] Work Phone: 09-17-2021 08:33-0400 Body weight 67.13 kg [facility] Work Phone: 09-17-2021 08:33-0400 Respiratory rate 20 /min [facility] Work Phone: 09-17-2021 08:33-0400 SaO2% (BldA) [Mass fraction] 95 % [facility] Work Phone: 08-27-2021 14:03-0400 Body height 160.02 cm [facility] Work Phone: Encounters Encounter Date Encounter Type Care Provider Facility Start: 02-28-2025 ambulatory Zuly Malys Facility:[facility] Start: 02-07-2025 ambulatory Zuly Malys Facility:[facility] Start: 02-07-2025 End: 02-07-[facility] Start: 11-17-2024 End: 11-17-[address] Jorge Maria MD -[facility] Start: 11-17-2024 End: 11-17-[address] Zuly Blas DO Work Phone: -[facility] Start: 10-31-2024 End: 10-31-[address] Zuly Blas DO Work Phone: -[facility] Start: 10-31-2024 End: 10-31-[address] Zuly Blas DO -[facility] Start: 10-31-2024 End: 10-31-2024 ambulatory Zuly Malys Facility:[facility] [place] Start: 07-25-2024 End: 07-25-[address] Zuly Blas DO Work Phone: [facility] Work Phone: Start: 07-25-2024 End: 07-25-[address] Zuly Blas DO -Laboratory, [facility] Start: 07-25-2024 End: 07-25-2024 ambulatory Zuly Malys Facility:[facility] [place] Start: 06-02-2024 End: 06-02-[address] Reginaldo Cool MD -[facility] Work Phone: Start: 06-02-2024 End: 06-02-2024 ambulatory Zuly Malys Facility:[facility] Start: 04-25-2024 End: 04-25-2024 ambulatory Zuly Malys Facility:[facility] Start: 04-25-2024 End: 04-25-[address] Reginaldo Cool MD -Physical Therapy Work Phone: Start: 04-15-2024 End: 04-15-2024 Telephone encounter Lizz King APRN.DATABASE ADMIN Work Phone: [facility] Comment on above: Patient Update Start: 03-15-2024 End: 03-15-2024 Telephone encounter Lizz King APRN.DATABASE ADMIN Work Phone: [facility] Comment on above: Patient Update Start: 02-05-2024 End: 02-05-2024 Telephone encounter Lizz King APRN.DATABASE ADMIN Work Phone: [facility] Comment on above: Patient Update Start: 01-01-2024 End: 01-01-2024 Telephone encounter Lizz King APRN.DATABASE ADMIN Work Phone: [facility] Comment on above: Patient Update Start: 11-24-2023 Telephone encounter Chasity anderson MD Work Phone: [facility] Comment on above: Appointment Start: 11-23-2023 Telephone encounter Lizz minaya APRN.DATABASE ADMIN Work Phone: [facility] Comment on above: Patient Update Start: 11-10-2023 End: 11-10-2023 Patient encounter procedure Lizz King APRN.DATABASE ADMIN Work Phone: [facility] Comment on above: Paraesophageal herni a (Primary Dx); Moderate smoker (20 or less per day); PONV (postoperative nausea and vomiting); Loss of weight; Other iron deficiency anemia; Gastroesophageal reflux disease, unspecified whether esophagitis present; Personal history of colon cancer; Hyperlipidemia, unspecified hyperlipidemia type; Tobacco use disorder; Depression, unspecified depression type Start: 11-10-2023 End: 11-10-2023 ambulatory LIZZ KING Facility:[facility] Start: 11-10-2023 ambulatory CHASITY MIR Facility: [facility] Start: 11-10-2023 End: 11-10-2023 Subsequent hospital visit by physician Gi/Gu [facility] Comment on above: Paraesophageal herni a [K44.9] Start: 11-06-2023 Telephone encounter Chasity anderson MD Work Phone: [facility] Start: 11-02-2023 End: 11-02-2023 Nursing evaluation of patient and report Mi Nurse Work Phone: [facility] Comment on above: Paraesophageal herni a Start: 11-02-2023 End: 11-02-2023 Subsequent hospital visit by physician Xr [facility] Work Phone: Radiology Comment on above: Paraesophageal herni a [K44.9] Start: 11-02-2023 End: 11-02-2023 ambulatory CHASITY MIR Facility:[facility] Start: 10-29-2023 Telephone encounter Chasity anderson MD Work Phone: [facility] Comment on above: Future Appointment ( Esophageal manometry/) Start: 10-28-2023 Telephone encounter Chasity anderson MD Work Phone: [facility] Comment on above: Appointment (Manomet ry ) Start: 10-28-2023 End: 10-28-2023 Patient encounter procedure Chasity Mir MD Work Phone: [facility] Comment on above: Paraesophageal herni a (Primary Dx); Gastroesophageal reflux disease without esophagitis; Tobacco use disorder; Esophageal dysphagia; Hyperlipidemia, unspecified hyperlipidemia type; Depression, unspecified depression type Start: 10-28-2023 End: 10-28-2023 ambulatory CHASITY MIR Facility:[facility] Start: 08-11-2023 End: 08-11-[address] Zuly Blas Work Phone: [facility] Work Phone: Start: 08-06-2023 End: 08-06-[address] Zuly Blas Work Phone: [facility] Work Phone: Start: 08-06-2023 End: 08-06-[address] Zuly Blas Work Phone: [facility] [place] Work Phone: Start: 08-06-2023 Non-patient / Non-visit Dr. Lia Blas Work Phone: [facility] Work Phone: Start: 08-06-2023 End: 08-11-[address] Zuly Blas Work Phone: [facility] Work Phone: Start: 08-06-2023 End: 08-11-[address] [facility] Work Phone: Start: 08-06-[address] [facility]uly [facility] Work Phone: Start: 08-05-2023 End: 08-05-[address] Zuly Blas Work Phone: [facility] Work Phone: Start: 08-05-2023 End: 08-05-[address] [facility] Work Phone: Start: 08-05-2023 End: 08-05-[address] Zuly Blas Work Phone: [facility] [facility] Work Phone: Start: 07-31-2023 Non-patient / Non-visit Dr. Lia Blas Work Phone: [facility] Start: 07-31-2023 End: 07-31-2023 Admission to same day surgery center Dr. Zuly Blas Work Phone: [facility]End[facility] Work Phone: Start: 07-31-2023 End: 07-31-[address] Zuly Blas Work Phone: [facility] Work Phone: Start: 07-27-2023 End: 07-27-[address] Zuly Blas Work Phone: [facility] Work Phone: Start: 07-27-2023 End: 07-27-[address] Zuly Blas Work Phone: [facility] Work Phone: Start: 07-09-2023 End: 07-09-[address] Zuly Blas Work Phone: [facility] Work Phone: Start: 02-25-2023 End: 02-25-[address] Zuly Blas Work Phone: [facility] Work Phone: Start: 02-25-2023 End: 02-25-[address] Zuly Blas Work Phone: [facility] Start: 01-22-2023 End: 01-22-[address] Zuly Blas Work Phone: [facility] Work Phone: Start: 01-22-2023 End: 01-22-[address] Zuly Blas Work Phone: [facility]-Outpatient Breast Imaging Work Phone: Start: 12-08-2022 Non-patient / Non-visit Dr. Lia Blas Work Phone: [facility] Start: 12-08-2022 End: 12-08-2022 Emergency department patient [facility]uly [facility] Start: 12-02-2022 End: 12-02-[address] Zuly Blas Work Phone: [facility] Work Phone: Start: 12-02-2022 End: 12-02-[address] Zuly Bl[facility] Start: 08-27-2022 End: 08-27-[address] Zuly Bl[facility] Start: 05-26-2022 End: 05-26-2022 ambulatory [facility] Work Phone: Start: 05-26-2022 End: 05-26-2022 [facility] Start: 05-21-2022 End: 05-21-2022 ambulatory [facility] Work Phone: Start: 05-21-2022 End: 05-21-2022 [facility] Start: 03-14-2022 End: 03-14-2022 Emergency department patient visit [facility]Emergency Department Start: 01-21-2022 End: 01-21-2022 ambulatory [facility] Work Phone: Start: 01-21-2022 End: 01-21-2022 [facility] Start: 10-15-2021 End: 10-15-2021 [facility] Start: 09-17-2021 End: 09-17-2021 Patient encounter procedure [facility]Medical Out Start: 08-27-2021 End: 08-27-2021 [facility] Procedures Date Procedure Procedure Detail [...] Author Start: 11-01-2026 Diabetes Screening Diabetes Screening [facility] Start: 11-17-2024 Plain x-ray of pelvis and lower extremity HIP, UNI W/ Pelvis 2-3 Views [facility] Start: 11-17-2024 XR Pelvis and Hip Views [facility] Start: 04-13-2024 Advance Directive Discussion Advance Directive Discussion [facility] Start: 12-13-2023 Covid-19 Vaccine ( season) Covid-19 Vaccine ( season) [facility] Start: 12-13-2023 Covid-19 Vaccine ( season) Covid-19 Vaccine () [facility] Start: 12-13-2023 Influenza vaccination Influenza Vaccine (#1) [facility] Start: 12-04-2023 End: 12-04-2023 Patient encounter procedure 12/04/2023 9:00 AM EDT Office Visit [facility] [address] [place] [address] Chasity Mir MD 1 [facility] [address] [place], [place] [id number] F/U - EKG, XRay, UGI , Mano , Op Clin [facility] Comment on above: F/U - EKG, XRay, UGI , Mano , Op Clin Start: 11-13-2023 End: 11-13-2023 Admission to same day surgery center 11/13/2023 9:00 AM EDT - 11/13/2023 10:00 AM EDT Surgery [facility] [address] [place] [address] Chasity Mir MD 1 [facility] [address] [place], [place] [phone] ESOPHAGEAL MANOMETRY [facility] Comment on above: ESOPHAGEAL MANOMETRY Start: 11-13-2023 End: 11-13-2023 Esophageal motility study w/interp&rpt ESOPHAGEAL MANOMETRY Esophageal dysphagia 11/13/2023 9:00 AM EDT [facility] Start: 11-13-2023 Subsequent hospital visit by physician 11/13/2023 9:00 AM EDT Hospital Encounter [facility] [address] [place] [address] Chasity Mir MD 1 [facility] [address] [place] [address] Esophageal dysphagia [R13.19] [facility] Comment on above: Esophageal dysphagia [R13.19] Start: 11-10-2023 End: 11-10-2023 Patient encounter procedure [facility] Comment on above: Paraesophageal hernia [K44.9] Paraesophageal herni a ; Adeola ref Start: 11-06-2023 End: 11-06-2023 Admission to same day surgery center 11/06/2023 9:00 AM EDT - 11/06/2023 10:00 AM EDT Surgery [facility] [address] [place] [address] Chasity Mir MD [address] [place] [address] ESOPHAGEAL MANOMETRY [facility] Comment on above: ESOPHAGEAL MANOMETRY Start: 11-06-2023 End: 11-06-2023 Esophageal motility study w/interp&rpt ESOPHAGEAL MANOMETRY Paraesophageal hernia Gastroesophageal reflux disease without esophagitis 11/06/2023 9:00 AM EDT [facility] Start: 11-06-2023 Subsequent hospital visit by physician 11/06/2023 9:00 AM EDT Hospital Encounter [facility] [address] [place] [address] Chasity Mir MD [address] [place] [address] Paraesophageal hernia [K44.9] [facility] Comment on above: Paraesophageal hernia [K44.9] Start: 11-02-2023 End: 11-02-2023 Patient encounter procedure 11/02/2023 11:20 AM EDT Appointment Radiology [address] [place] [address] chest XR Radiology Comment on above: chest XR Start: 11-02-2023 End: 11-02-2023 ambulatory 11/02/2023 11:00 AM EDT Results Only [facility] [address] [place] [address] lab [facility] Comment on above: lab Start: 11-02-2023 End: 11-02-2023 Nursing evaluation of patient and report 11/02/2023 10:45 AM EDT Nurse Visit [facility] [address] [place] [address] Nurse, [place] [address] [place] [address] EKG [facility] Comment on above: EKG Start: 10-28-2023 End: 01-27-2024 CBC W Auto Differential panel - Blood COMPLETE BLOOD COUNT AND DIFFERENTIAL Lab Routine Paraesophageal hernia Expected: 10/28/2023, Expires: 01/27/2024 [facility] Comment on above: Expected: 10/28/2023, Expires: Start: 10-28-2023 End: 01-27-2024 Comprehensive metabolic 2000 panel - Serum or Plasma COMPREHENSIVE METABOLIC PANEL Lab Routine Paraesophageal hernia Expected: 10/28/2023, Expires: 01/27/2024 [facility] Comment on above: Expected: 10/28/2023, Expires: Start: 10-28-2023 End: 01-27-2024 NICOTINE & METAB, UR NICOTINE & METAB, UR Lab Routine Tobacco use disorder Expected: 10/28/2023, Expires: 01/27/2024 [facility] Comment on above: Expected: 10/28/2023, Expires: Start: 08-11-2023 Patient referral [facility] Work Phone: Start: 08-06-2023 Anaerobic microbial culture Anaerobic Culture [facility] Start: 08-05-2023 Patient referral [facility] Work Phone: Start: 07-31-2023 Colonoscopy flx dx w/collj spec when pfrmd DIAGNOSTIC COLONOSCOPY [facility] Start: 07-31-2023 Esophagogastroduodenoscopy transoral diagnostic EGD DIAGNOSTIC BRUSH WASH [facility] Start: 07-31-2023 Patient discharge [facility] Start: 04-13-2023 Advance Directive Discussion Advance Directive Discussion [facility] Start: 04-13-2023 Behavioral Health Screening Behavioral Health Screening [facility] Start: 12-12-2022 Covid-19 Vaccine () Covid-19 Vaccine () [facility] Start: 09-17-2021 Iv infusion therapy/prophylaxis /dx 1st to 1 hr THER/PROPH/DIAG IV INF INIT [facility] Work Phone: Start: 2020 RSV Vaccine (1 - 1-dose 75+ series) RSV Vaccine (1 - 1-dose 75+ series) [facility] Start: 2010 Screening for osteoporosis Bone Density Screening [facility] Start: 09-22-2005 Diabetes Screening Diabetes Screening [facility] Start: 2005 RSV Vaccine (1 - 1-dose 60+ series) RSV Vaccine (1 - 1-dose 60+ series) [facility] Start: 1964 Pneumococcal Vaccine: 50+ (1 of 2 - PCV) Pneumococcal Vaccine: 50+ (1 of 2 - PCV) [facility] Start: 1964 Shingrix Vaccine (1 of 2) Shingrix Vaccine (1 of 2) [facility] Start: 1964 Urine microalbumin profile DTaP,Tdap,Td Vaccine (1 - Tdap) [facility] Start: 1963 Annual PCP Team Chronic Disease Visit Annual PCP Team Chronic Disease Visit [facility] Start: 1963 Anxiety Screening Anxiety Screening [facility] Start: 1963 Depression Screening Depression Screening [facility] Start: 1963 Hepatitis C screening Hepatitis C Screening [facility] Start: 1951 Pneumococcal Vaccine: 65+ (1 of 2 - PCV) Pneumococcal Vaccine: 65+ (1 of 2 - PCV) [facility] Colonoscopy [facility] End: 10-27-2024 ECG COMPLETE ECG COMPLETE ECG Routine Paraesophageal hernia 1 Occurrences starting 10/28/2023 until 10/27/2024 [facility] Comment on above: 1 Occurrences starting 10/28/2023 until 10/27/2024 End: 10-27-2024 Manometry Study observation Narrative MANOMETRY ESOPHAGEAL Endoscopy Routine Esophageal dysphagia 1 Occurrences starting 10/28/2023 until 10/27/2024 [facility] Comment on above: 1 Occurrences starting 10/28/2023 until 10/27/2024 Patient Education [facility] Work Phone: Patient referral [facility] Work Phone: End: 11-26-2024 RF Gastrointestinal tract upper Views W air contrast PO and W barium contrast PO XR UPPER GI ROUTINE DOUBLE CONTRAST/AIR Radiology Routine Paraesophageal hernia Gastroesophageal reflux disease without esophagitis 1 Occurrences starting 10/28/2023 until 11/26/2024 [facility] Work Phone: Comment on above: 1 Occurrences starting 10/28/2023 until 11/26/2024 End: 11-26-2024 XR Chest PA and Lateral XR CHEST 2V FRONTAL/LAT Radiology Routine Paraesophageal hernia 1 Occurrences starting 10/28/2023 until 11/26/2024 [facility] Comment on above: 1 Occurrences starting 10/28/2023 until 11/26/2024 [facility] Immunizations Immunization Date Immunization Notes Care Provider Fa shubham 02-25-2023 influenza virus vaccine, unspecified formulation Chasity Mir MD Work Phone: [facility] 06-14-2013 Influenza virus vaccine [facility] 06-11-2013 tetanus and diphther ia toxoids, adsorbed, preservative free, for adult use (2 Lf of tetanus toxoid and 2 Lf of diphtheria toxoid) [facility] 06-12-2011 Pneumococcal Vaccine [facility] Work Phone: 06-12-2011 pneumococcal vaccine , unspecified formulation [facility] Payers Date Payer Category Payer Self-pay [id number] 2023 Unknown [facility] [employer] MEDICARE ADVANTAGE O [id number] 2023-Present [phone] [address] [place] [address] [facility] [id number] 2023 Medicare [id number] 2013 Medicare [id number] Medicare [id number] Unknown [id number] Unknown [id number] Unknown [id number] Unknown [id number] Unknown [id number] Unknown [id number] Unknown [id number] Unknown [id number] Unknown [id number] Unknown [id number] Unknown [id number] Social History Date Type Detail Facility Start: 02-07-2019 End: 08-06-2023 Tobacco smoking status HIIS Unknown if ever smoked [facility] Start: 11-15-[address] [facility] Start: 11-15-[address] [facility] Start: 11-15-[address] [facility] Start: 1945 Sex Assigned At Female [facility] Start: 11-26-2015 End: 11-13-2023 Tobacco smoking status NHIS Smokes tobacco daily [facility] Start: 11-26-1995 History of tobacco use Cigarette Smo ker [facility] Start: 11-26-2015 End: 10-28-2023 Cigarettes smoked current (pack per day) - Reported 0.5 [facility] Start: 11-26-2015 End: 11-10-2023 Tobacco use and exposure Smokeless tobacco non-user [facility] Start: 10-28-2023 End: 11-24-2023 Alcohol intake Current drinker of alcohol (finding) [facility] Start: 10-28-2023 End: 11-10-[address] [facility] Start: 05-06-2011 End: 11-09-2023 Tobacco Comment Pt has cut back to 1/[address] [facility] Start: 1945 Sex Assigned At Not on file [facility] National Score (1-10 0), lower number is lower risk [address] [facility] Start: 07-29-2024 Sex Female (finding) [facility] Medical Equipment Procedure Code Equipment Code Equipment Origin al Text Equipment Identifier Dates ORIF, hip, using Gamma nail ([id number]) Orthopaedic bone screw, non-bioabsorbable, sterile [id number] FDA Start: 11-13-2023 ORIF, hip, using Gamma nail ([id number]) Orthopaedic bone screw, non-bioabsorbable, sterile [id number] FDA Start: 11-13-2023 ORIF, hip, using Gamma nail ([id number]) Femur nail, sterile [id number] FDA Start: 11-13-2023 Goals Date Patient Goal Desired Activity /State Mental Status Date Assessment Result Facility 07-31-2023 Cognitive function Voice/Name [facility] Work Phone: 09-17-2021 Cognitive function Voice/Name [facility] Work Phone: Clinical Notes 12-08-2022 to 06-02-2024 Note Date & Type Note Facility 06-02-2024 Evaluation note Diagnosis Onset Date Resolution Closed right hip fracture acute June 02 8:47am Leg length discrepancy acute Fe bruary 2024 8:47am [facility] Work Phone: [phone] 607-137901-03-2025 Telephone encounter Note* Telephone Encounter - Lizz King APRN.DATABASE ADMIN - 04/15/2024 9:19 AM ESTSummary: SOC/SV Updates Last two phone calls never returned to clinic. Patient is not scheduled for surgery nor has an upcoming appt with the surgeon. Will remove off of call list. -iLzz King APRN.CNP [facility]01-03-2025 Miscellaneous Notes* Telephone Encounter - Lizz King APRN.CNP - 04/15/2024 9:19 AM ESTSummary: SOC/SV Updates Last two phone calls never returned to clinic. Patient is not scheduled for surgery nor has an upcoming appt with the surgeon. Will remove off of call list. -Lizz King APRN.CNP documented in this encounter[facility] Telephone encounter Note * Telephone Encounter - Lizz King APRN.CNP - 03/15/2024 3:51 PM EST Summary: GSV Updates LMV for patient to call clinic with updates. -Lizz [facility]12-03-2024 Miscellaneous Notes* Telephone Encounter - Lizz King APRN.CNP - 03/15/2024 3:51 PM ESTSummary: GSV Updates LMV for patient to call clinic with updates. -Lizz documented in this encounterSt. [facility] Telephone encounter Note * Telephone Encounter - Lizz King APRN.CNP - 02/05/2024 11:57 AM EDT Summary: GSV Updates LMV for patient to call clinic with updates. No appt with surgeon or surgery scheduled as of yet. Will place vocational technical education director back list for four weeks. -Lizz King APRN.CNP [facility]10-25-2024 Miscellaneous Notes* Telephone Encounter - Lizz King APRN.CNP - 02/05/2024 11:57 AM EDTSummary: GSV Updates LMV for patient to call clinic with updates. No appt with surgeon or surgery scheduled as of yet. Will place vocational technical education director back list for four weeks. -Lizz King APRN.CNP documented in this encounterSt. [facility] Telephone encounter Note * Telephone Encounter - [...] to build up some strength. Will place vocational technical education director back list at this time. -Lizz King APRN.CNP [facility]09-20-2024 Miscellaneous Notes* Telephone Encounter - Lizz King [...] to build up some strength. Will place vocational technical education director back list at this time. -Lizz King APRN.CNP documented in this encounterSt. [facility] Telephone encounter Note * Telephone Encounter - [...] me back and get scheduled. Amelie Rai [facility]08-13-2024 Miscellaneous Notes* Telephone Encounter - Amelie Rai [...] get scheduled. Amelie Rai documented in this encounterSt. [facility] Telephone encounter Note * Telephone Encounter - Lizz King APRN.CNP - 11/23/2023 12:47 PM EDT Summary: GSV Updates Spoke with patient on the phone, she reports that she fell and broke her hip on 11/12/2023. She had surgical repair at [facility] and is now currently doing rehab. She would like to have her manometry and subsequent f/u appt with Dr. Mir rescheduled. Message sent to surgery staff. Lizz King APRN.CNP [facility]08-12-2024 Miscellaneous Notes* Telephone Encounter - Lizz King APRN.CNP - 11/23/2023 12:47 PM EDTSummary: GSV Updates Spoke with patient on the phone, she reports that she fell and broke her hip on 11/12/2023. She had surgical repair at [facility] and is now currently doing rehab. She would like to have her manometry and subsequent f/u appt with Dr. Mir rescheduled. Message sent to surgery staff. Lizz King APRN.CNP documented in this encounterSt. [facility] History of Present illness Narrative* Lizz King APRN.CNP - 11/10/2023 3:00 PM EDTSummary: GSV Images from the original note were not included. Lizz King APRN.CNP [facility] [address] [facility], [address] [place] [address] Patient: Sonia Noble Date of : 1945 [...] after surgery: no Currently involved with Case Management/Mental Health Clinician: no Home environment/homeless/hygiene concerns: no Geriatric Depression [...] 3.9 - 4.9 g/dL Final Swallow Evaluation ([place] Swallow Protocol): Normal oral mechanical exam: Yes [...] NO suspicious activity was identified. Lizz King APRN.DATABASE ADMIN November 06, 2023 - Ativan 1 mg PRN -1 Avg LME/day Venous Thromboembolism Risk Assessment: Hx clotting disorder: No Hx PE/DVT: no OAC Use: No ASA use: No Pulmonology: Asthma: no COPD: not diagnosed Hypoventilation syndrome: no Control Board Operator: NA Recent exacerbation: No recent PNA or [...] HLD: yes, on statin CHF: no Prior MN: no Hx abnormal EKG: no Hx abnormal heart rhythm: no Valvular heart disease: no Hx endocarditis: no PAD: no PVD: no CVA: no HTN: no Pulmonary HTN: no Hx cardiovascular surgery: no Sewer Builder: NA EKG 11/02/2023: Diagnosis: NORMAL SINUS RHYTHM Confirmed by TANYA LICEA DO ([id number]) on 11/03/2023 8:10:20 AM ECHO 09/09/2002: FINDINGS [...] a FULL CODE ACS Surgical Risk Calculator: 41139 - Laparoscopy, surgical, repair of paraesophageal hernia, [...] to patient for stress reduction/management -Refer to Store Administrative Assistant/Social work/Psych, does not want at this time [...] which included preparing to see the patient, [id number]-lhew patient care, completing clinical documentation, obtaining and/or reviewing separately obtained history, performing a medically appropriate examination, counseling and educating the pat ient/family/caregiver, communicating with other HCPs (not separately reported), and independently interpreting results (not separately reported). ELECTRONICALLY SIGNED AND DATED BY: Lizz King APRNKALEIGH [facility] documented in this encounterSt. Mary[facility]07-[facility]-2024 NoteHNO ID: [id number] Author: LIZZ KING APRN.KALEIGH Service: ? Author Type: Nurse Practitioner Type: Progress Notes Filed: 11/10/2023 16:04 Note Text: Summary: GSV Lizz King APRN.KALEIGH [facility] [address] [facility], [place] [id number] Patient: Sonia Noble Date of : 1945 [...] for chest pain, pa (more content not included)...[facility]07-30-2024 History of Present illness Narrative* Drew [...] PATIENT PRESENTS WITH AN IMPLANTABLE OR ATTACHED RABIES INSPECTOR: No RADIOLOGY DEPARTMENT: General X-ray: Exam(s) Completed: GI/ Procedure(s): Upper GI with barium contrast PERIPHERAL IV DATA: Not applicable SIGNED BY: RT Jose Alejandro(Marlene) November 10, 2023 1:38 PM documented in this encounterSt. Mary'[facility]07-[facility]-2024 NoteHNO ID: [id number] Author: DREW YUNG RT(Marlene) Service: Radiology Author [...] PATIENT PRESENTS WITH AN IMPLANTABLE OR ATTACHED RABIES INSPECTOR: No RADIOLOGY DEPARTMENT: General X-ray: Exam(s) Completed: GI/ Procedure(s): Upper GI with barium contrast PERIPHERAL IV DATA: Not applicable SIGNED BY: RT Jose Alejandro(R) November 10, 2023 1:38 [facility]07-26-2024 Instructions* Patient Instructions* Lizz King APRN.[facility] - 11/06/2023 12:42 PM EDT Incentive Spirometer: [...] lean beef, salmon, tofu, peanut butter, eggs, peruvian yogurt, cottage cheese, black beans, lentils -Make [...] member be designated as your power of defense attorney in the event you cannot speak for [...] records with the designated Durable Power of Lab Support Tech. -A great web site for information: www.prepareforyourcare.org [...] importance of smoking cessation -Resourceful web site: www.[employer] [place] ABforUbimo.com - FOR[facility] NAMED [facility] smoke cessation resources: 1(594)-QUIT-NOW documented in this encounterSt. Mary'[facility]07-[facility]-2024 History of Present illness Narrative* Leandro Boyle [...] PATIENT PRESENTS WITH AN IMPLANTABLE OR ATTACHED RABIES INSPECTOR: No RADIOLOGY DEPARTMENT: General X-ray: Exam(s) Completed: Chest X-Ray PERIPHERAL IV DATA: Not applicable SIGNED BY: BLADIMIR Burkett) November 02, 2023 10:47 AM documented in this encounterSt. [facility] NoteHNO ID: [id number] Author: LEANDRO BOYLE RT(R) Service: Radiology Author [...] PATIENT PRESENTS WITH AN IMPLANTABLE OR ATTACHED RABIES INSPECTOR: No RADIOLOGY DEPARTMENT: General X-ray: Exam(s) Completed: Chest X-Ray PERIPHERAL IV DATA: Not applicable SIGNED BY: RT Madelaine(R) November 02, 2023 10:47 [facility]07-22-2024 NoteHNO ID: [id number] Author: CLAUDIA DO LPN Service: ? Author Type: LICENSED NURSE Type: Progress Notes Filed: 11/02/2023 10:35 Note Text: Patient presents for EKG per Dr Mir. Denies any problems at this time. Tolerated procedure well. [facility] History of Present illness Narrative* Claudia Do LPN - 11/02/2023 10:32 AM EDT Patient presents for EKG per Dr Mir. Denies any problems at this time. Tolerated procedure well. Claudia Do LPN documented in this encounterSt. [facility] Telephone encounter Note * Telephone Encounter - Brady Escobar RN - 10/29/2023 10:48 AM EDT Patient given written information about esophageal manometry and the prep instructions in the office on 10/28/23. I called her today and verbally discussed and reviewed the information with the patient. All of patient's questions were answered. Patient has my contact info if she has any questions. Brady Escobar RN [facility]07-18-2024 Miscellaneous Notes* Telephone Encounter - Brady Escobar RN - 10/29/2023 10:48 AM EDT Patient given written information about esophageal manometry and the prep instructions in the office on 10/28/23. I called her today and verbally discussed and reviewed the information with the patient. All of patient's questions were answered. Patient has my contact info if she has any questions. Brady Escobar RN documented in this encounterSt. [facility] Telephone encounter Note * Telephone Encounter - Lety Reese LPN - 10/28/2023 9:48 AM EDT Manometry scheduled for 11/06/2023 at 900am. Prep/instructions given to patient at checkout. Lety Reese LPN [facility] Work Phone: 1(589) 302-797507-17-2024 Miscellaneous Notes* Telephone Encounter - Lety Reese LPN - 10/28/2023 9:48 AM EDT Manometry scheduled for 11/06/2023 at 900am. Prep/instructions given to patient at checkout. Lety Reese LPN documented in this encounterSt. [facility] Note* Addendum Note - Lety Reese LPN - 10/28/2023 9:34 AM EDTAddended by: LETY REESE on: 10/28/2023 09:34 AM Modules accepted: Orders [facility] Work Phone: 1(696) 121-443107-17-2024 Miscellaneous Notes* Addendum Note - Lety Reese LPN - 10/28/2023 9:34 AM EDTAddended by: LETY REESE on: 10/28/2023 09:34 AM Modules accepted: Orders documented in this encounterSt. [facility]-2024 NoteHNO ID: [id number] Author: CHASITY MIR MD Service: ? Author [...] She denies any personal history of DM, [place]/CAD, CVA/TIA or any other medical conditions aside [...] COLONOSCOPY FLX DX W/COLLJ SPEC WHEN PFRMD [id number] repeat 1 year COLONOSCOPY W/BIOPSY SINGLE/MULTIPLE 09/16/10 [...] by mouth once daily. (more content not included)...[facility]07-17-2024 History of Present illness Narrative* Chasity [...] She denies any personal history of DM, [place]/CAD, CVA/TIA or any other medical conditions aside [...] COLONOSCOPY FLX DX W/COLLJ SPEC WHEN PFRMD [id number] repeat 1 year COLONOSCOPY W/BIOPSY SINGLE/MULTIPLE 09/16/10 [...] - COMPREHENSIVE METABOLIC PANEL - CONSULT TO [facility] 2. Gastroesophageal reflux disease without esophagitis - ICD9: 530.81, ICD10: K21.9 - Discussed lifestyle modifications including losing weight, limiting caffeine, no meals three hours before sleep, and head of bed elevation - Continue treatment with Omeprazole 40 mg BID - Setup for Upper GI Series with Follow Through - XR UPPER GI ROUTINE DOUBLE CONTRAST/AIR - CONSULT TO [facility] 3. Tobacco use disorder [...] 28, 2023 TIME: 8:47 AM PAGER/CONTACT #: [id number] documented in this encounterSt. Mary'[facility]04[facility] History and physical note Author Ervin Darling [facility] August 06, 2023 1:04pm Note Date/Time August 06, 2023 11: 48am [facility] [address] [place] [address] H&P Exam - Wound Care 08/06/23 1148 MR#: [id number] Acct: [id number] Name: SONIA NOBLE Rep #:[id number] : [...] fever or otherwise feeling of unwell reported. [facility] Medical History (Updated 08/06/23 @ 12:58 by [...] & Hygeine No Communication Assessment Preferred language Frisian Jewelry Finisher Required No Able to Read Yes Able [...] in Ability to Perform Denies Any Declines Culture/Sabianist/Breakfast Manager Cultural/Sabianist Needs that may affect No Treatment Plan Would you allow our hospital police matron to No meet you for the purpose of spiritual/ emotional support? Breakfast Manager to contact place of roman catholic No WC - Nurse 1 - General [...] Charges/Coding Visit Charges Office Visits / Consults: 86054 OV L4 New 45min Procedures Integumentary 111xxx-113xx: 44207 Ainsley subq tissue 20 sq cm/< Assessment/Plan [...] if needed. This note was generated with [employer] software. It may contain incorrectwords, spelling, and punctuation that were not noted in checking the note beforesigning. 08/06/23 1304 <Electronically signed by Ervin Darling MD> Cosigner Signature (if applicable): CC: ~ Signed [facility] Work Phone: [phone]) 625-655504-19-[address] [facility] 07-31-[address] [facility]04-19-2024 Procedure note [facility]04-19-[address] [facility] 12-08-2022 Discharge summary Author Kaushik Posada [facility] December 08, 2022 4:43pm Note Date/Time December 08, 2022 3: 48pm [facility] Medical Records Department [address] [place] [address] Emergency Department Summary 12/08/22 MR#: [id number] Acct: [id number] Name: SONIA NOBLE Rep #:[id number] : [...] of her ankle she feels perfectly fine. [facility] Medical History (Updated 12/08/22 @ 16:05 by [...] can actively and passively move the ankle [id number] without any pain. There is no indication [...] Signed: Alvaro Maurice DO at 16:22 EDT , Discharge Plan Triage Chief Complaint: Lower [...] your Primary Care Provider. Call [facility] ([phone]) or report to the closest Emergency Room. Call 911 if necessary. 12/08/22 1643 <Electronically signed by Kaushik Posada MD> Cosigner Signature (if applicable): CC: Dr. Zuly Blas DO ~ Signed [facility] Work Phone: Evaluation noteNo assessment information available [facility] Work Phone: Evaluation note* Diagnosis Onset Date Resolution Status History of colon cancer acut e History of gastroesophageal reflux (GERD) chronic Cat bite of left lower leg a cute [facility] Work Phone: Evaluation note* Diagnosis Onset Date [...] of COPD chronic Large hiatal hernia acute [facility] Work Phone: Evaluation note* Diagnosis Paraesophageal hernia- Primary Diaphragmatic hernia without mention of obstruction or gangrene Gastroesophageal reflux disease without esophagitis Esophageal reflux Tobacco use disorder Esophageal dysphagia Dysphagia, pharyngoesophageal phase Hyperlipidemia, unspecified hyperlipidemia type Depression, unspecified depression type Paraesophageal hernia Diaphragmatic hernia without mention of obstruction or gangrene Gastroesophageal reflux disease without esophagitis Esophageal reflux documented in this encounter [facility]* Diagnosis Paraesophageal hernia Diaphragmatic hernia without mention of obstruction or gangrene Paraesophageal hernia Diaphragmatic hernia without mention of obstruction or gangrene Gastroesophageal reflux disease without esophagitis Esophageal reflux documented in this encounter [facility] note* Diagnosis Esophageal dysphagia- Primary Dysphagia, pharyngoesophageal phase Esophageal dysphagia Dysphagia, pharyngoesophageal phase documented in this encounter [facility] note* Diagnosis Paraesophageal hernia- Primary Diaphragmatic hernia [...] Dysphagia, pharyngoesophageal phase documented in this encounter [facility] note* Diagnosis Paraesophageal hernia Diaphragmatic hernia without mention of obstruction or gangrene Gastroesophageal reflux disease without esophagitis Esophageal reflux Esophageal dysphagia Dysphagia, pharyngoesophageal phase documented in this encounter [facility] note* Diagnosis Paraesophageal hernia Diaphragmatic hernia without mention of obstruction or gangrene [facility] Author Gareth Steven [facility] July 31, 2023 8:26am Note Date/Time July 31, 2023 8:2 6am [facility] Medical Records Department [address] [place] [address] History & Physical Exam 07/31/23 0825 MR#: [id number] Acct: [id number] Name: SONIA NOBLE Rep #:[id number] : 1945 78 From: Gareth rossi MD PCP: Dr. Zuly Blas, DO Status:[facility] Location: [place] [address] History and Physical Date of Admission: 07/31/23 [...] Visit Reasons: SCREENING COLONOSCOPY Chief Complaint: C-Scope Jewelry Finisher Required: No Is patient in pain?: No [...] since her colectomy. Gareth Steven MD Pager: [facility] [address] [place] [address], [address] [place] [address] Office: I have examined the patient and the H&P has been reviewed. There are no clinicalchanges since date of exam. 07/31/23 0826 <Electronically signed by Gareth Steven MD> Cosigner Signature (if applicable): CC: Dr. Gareth Steven MD; Dr. Zuly Blas DO~ Signed [facility] Work Phone: Hospital Discharge instructionsAmbulatory Orders* General Surgery Location: None Selected [facility] Work Phone: Reason for referral (narrative)* Outpatient Procedure (Routine) - New Request Specialty Diagnoses / Procedures Referred By Contyuliya t Referred To Contact [facility] Diagnoses Esophageal dysphagia Procedures MANOMETRY ESOPHAGEAL ESOPHAGEAL MOTILITY STUDY W/INTERP&RPT Chasity Mir MD [address] [address] [facility] [address] [place] [address] Referral ID Status Reason Start Date Expiration Date Visits Requested Visits Authorized [id number] New Request Auto-Generat ed Referral 10/28/2023 10/27/2024 1 1 * Outpatient Procedure (Routine) - New Request Specialty Diagnoses / Procedures Referred By Humberto de anda Referred To Contact [facility] Diagnoses Paraesophageal hernia Procedures ECG COMPLETE ECG ROUTINE ECG W/LEAST 12 LDS W/I&R Chasity Mri MD [address] [facility] [place] [address] [facility] [address] [id number] Referral ID Status Reason Start Date Expiration Date Visits Requested Visits Authorized [id number] New Request Auto-Generat ed Referral 10/28/2023 10/27/2024 1 1 * Diagnostic Procedure Only (Routine) - New Request Specialty Diagnoses / Procedures Referred By Humberto de anda Referred To Contact [facility] Diagnoses Paraesophageal hernia Gastroesophageal reflux disease without esophagitis Procedures XR UPPER GI ROUTINE DOUBLE CONTRAST/AIR RADIOLOGIC EXAM UPR GI TRC DOUBLE CONTRAST STUDY Chasity Mir MD [address] [facility] [address] [place] [address] [place] [address] Referral ID Status Reason Start Date Expiration Date Visits Requested Visits Authorized [id number] New Request Auto-Generat ed Referral 10/28/2023 11/26/2024 1 1 [facility] for referral (narrative)* Diagnostic Procedure Only (Routine) - Closed Specialty Diagnoses / Procedures Referred By Humberto de anda Referred To Contact [facility] Diagnoses Paraesophageal hernia Gastroesophageal reflux disease without esophagitis Procedures XR UPPER GI ROUTINE DOUBLE CONTRAST/AIR RADIOLOGIC EXAM UPR GI TRC DOUBLE CONTRAST STUDY Chasity Mir MD 1 [employer] [facility] [address] [address] [place] [address] [place] [address] Referral ID Status Reason Start Date Expiration Date V isits Requested Visits Authorized [id number] Closed Auto-Generate d Referral 10/28/2023 11/26/[address] [facility] (narrative)No reason for referral information availableWKet[facility] Work Phone: Reason for visit Narrative* Diagnostic Procedure Only (Routine) - Closed Specialty Diagnoses / Procedures Referred By Contac t Referred To Contact [facility] Diagnoses Paraesophageal hernia Gastroesophageal reflux disease without esophagitis Procedures XR UPPER GI ROUTINE DOUBLE CONTRAST/AIR RADIOLOGIC EXAM UPR GI TRC DOUBLE CONTRAST STUDY Chasity Mir MD [address] [facility] [place] [address] [place] [address] Referral ID Status Reason Start Date Expiration Date V isits Requested Visits Authorized [id number] Closed Auto-Generate d Referral 10/28/2023 11/26/[address] [facility] Chief Complaint and Reason for Visit Chief [...] 8:47am Leg length discrepancy June 02 8:47am Chief Complaint Admit Date RIGHT HIP November 17, 2024 8:5 9am Room 1 November 17, 2024 9:1 0am Family History No Family History Records Found Relationship Condition Age at Onset Recorded Date/T [place] father Malignant neoplasm of colon Unknown mother Cardiac disease Unknown Osteoporosis Unknown Advance Directives No Advanced Directives Records Found Advance Directive Response Recorded Date/ Time Advance Directives No February 07, 2016 2:45pm Living Will No January 20 19 11:55am Power of Lab Support Tech No January 20, 2019 11:55am Advance Directive Response Recorded Date/ Time Advance Directives No February 07, 2016 1:45pm Living Will No March 14 1:28pm Power of Lab Support Tech No March 14, 2022 1:28pm Advance Directive Response Recorded Date/ Time Advance Directives No February 07, 2016 2:45pm Living Will No December 08 3:23pm Power of Lab Support Tech No December 08, 2 023 3:23pm Advance Directive Response Recorded Date/ Time Advance Directives No February 07, 2016 1:45pm Living Will No December 08 2:23pm Power of Lab Support Tech No December 08 2 023 2:23pm Advance Directive Response Recorded Date/ Time Advance Directives No February 07, 2016 2:45pm Living Will No July 28, 2023 9:49am Power of Lab Support Tech No July 27 9:49am Advance Directive Response Recorded Date/ Time Living Will Yes November 12, 2023 5:32pm Do you have a Healthcare Power of Lab Support Tech? Yes November 12, 2023 5:32pm Advance Directives No February 07, 2016 2:45pm Advance Directive Response Recorded Date/ Time Advance [...] Role Status Dates Dr. Zuly Blas DO Family Provider Active Dr. Zuly Blas DO Primary Care Provider Active Team Status: Inactive Member Role Status Dates Dr. Zuly Blas DO Primary Care Provider Active Dr. Corby Mckay DO Attending Provider, Emergency P rovider Active Team Status: Inactive Member Role Status Dates Dr. Zuly Blas DO Primary Care Provider, Attending P rovider Active Team Status: Active Member Role Status Dates Dr. Zuly Blas DO Primary Care Provider, Attending P rovider [...] Care Provider, Referring P rovider Active Mac WANG PA Attending Provider Active Team Status: Active Member Role Status Dates Dr. Zuly Blas DO Primary Care Provider, Referring P rovider Active Dr. Gareth Steven MD Attending Provider, Other Provider Active Team Status: Active Member Role Status Dates Dr. Zuly Blas DO Primary Care Provider Active Mac WANG PA Attending Provider, Referring Pr ovider Active Team Status: Inactive Member Role Status Dates Dr. Zuly Blas DO Primary Care Provider Active Mac WANG, PA Attending Provider, Referring Pr ovider Active Team Status: Active Member Role Status Dates Dr. Zuly Blas DO Primary Care Provider Active Dr. Ervin Darling MD Attending Provider, Other Pr ovider Active Mac WANG, PA Referring Provider Active Team Status: Active Member Role Status Dates Dr. Zuly Blas DO Primary Care Provider Active Dr. Ervin Darling MD Attending Provider Active Mac WANG, PA Referring Provider Active Team Status: Active [...] Ervin Darling MD Attending Provider Active Mac WANG, PA Referring Provider Active Intelligence Clerk Relationship Specialty Start Date End Date Zuly Blas Chrissie [address] [place] [place] [address] PCP - General Family Medicine 11/10/23 Intelligence Clerk Relationship Specialty Start Date End Date Roopa Zuly Dickens DO [address] [place] [address] PCP - General Family Medicine 11/10/23 Intelligence Clerk Relationship Specialty Start Date End Date Zuly Blas [address] [place] [id number] PCP - General Family Medicine 11/10/23 Team [...] July 25, 2024 End: July 25, 2024 Team Status: Active Member Role/Relationship Status Dates Dr. Zuly Blas DO Primary Care Provider Active Team Status: Inactive Member Role/Relationship Status Dates Dr. Zuly Blas DO Primary Care Provider Active Start: July 25, 2024 End: July 25, 2024 Dr. Zuly Blas DO Attending Provider Active St art: July 25, 2024 End: July 25, 2024 Team Status: Inactive Member Role/Relationship Status Dates Dr. Zuly Blas DO Primary Care Provider Active Start: October 31, 2024 End: October 31, 2024 Dr. Zuly Blas DO Attending Provider Active St art: October 31, 2024 End: October 31, 2024 Team Status: Active Member Role/Relationship Status Dates Dr. Zuly Blas DO Primary Care Provider Active Start: November 17, 2024 Dr. Zuly Blas DO Referring Provider Active St art: November 17, 2024 FELIPE Carrillo Attending Provider Active Star t: November 17, 2024 Team Status: Inactive Member Role/Relationship Status Dates Dr. Zuly Blas DO Primary Care Provider Active Start: November 17, 2024 End: November 17, 2024 Dr. Jorge Maria MD Attending Provider Active S tart: November 17, 2024 End: November 17, 2024 Team Status: Inactive Member Role/Relationship Status Dates Dr. Zuly Blas DO Primary Care Provider Active Start: November 17, 2024 End: November 17, 2024 Dr. Zuly Blas DO Referring Provider Active St art: November 17, 2024 End: November 17, 2024 FELIPE Carrillo Attending Provider Active Star t: November 17, 2024 End: November 17, 2024 Source Comments (unrecognize d section and content) In the event this informatio n is protected by the Federal Confidentiality of Alcohol and Drug Abuse Patient Records regulations: The Federal rules restrict any use of the information to criminally investigate or prosecute any alcohol or drug abuse patient.[facility] the event this information is protected by the Federal Confidentiality of Alcohol and Drug Abuse Patient Records regulations: The Federal rules restrict any use of the information to criminally investigate or prosecute any alcohol or drug abuse patient.[facility] the event this information is protected by the Federal Confidentiality of Alcohol and Drug Abuse Patient Records regulations: The Federal rules restrict any use of the information to criminally investigate or prosecute any alcohol or drug abuse patient.[facility]In the event this information is protected by the Federal Confidentiality of Alcohol and Drug Abuse Patient Records regulations: The Federal rules restrict any use of the information to criminally investigate or prosecute any alcohol or drug abuse patient.[facility]In the event this information is protected by the Federal Confidentiality of Alcohol and Drug Abuse Patient Records regulations: The Federal rules restrict any use of the information to criminally investigate or prosecute any alcohol or drug abuse patient.[facility]In the event this information is protected by the Federal Confidentiality of Alcohol and Drug Abuse Patient Records regulations: The Federal rules restrict any use of the information to criminally investigate or prosecute any alcohol or drug abuse patient.[facility]In the event this information is protected by the Federal Confidentiality of Alcohol and Drug Abuse Patient Records regulations: The Federal rules restrict any use of the information to criminally investigate or prosecute any alcohol or drug abuse patient.[facility]In the event this information is protected by the Federal Confidentiality of Alcohol and Drug Abuse Patient Records regulations: The Federal rules restrict any use of the information to criminally investigate or prosecute any alcohol or drug abuse patient.[facility]In the event this information is protected by the Federal Confidentiality of Alcohol and Drug Abuse Patient Records regulations: The Federal rules restrict any use of the information to criminally investigate or prosecute any alcohol or drug abuse patient.[facility] CampusIn the event this information is protected by the Federal Confidentiality of Alcohol and Drug Abuse Patient Records regulations: The Federal rules restrict any use of the information to criminally investigate or prosecute any alcohol or drug abuse patient.[facility] CampusIn the event this information is protected by the Federal Confidentiality of Alcohol and Drug Abuse Patient Records regulations: The Federal rules restrict any use of the information to criminally investigate or prosecute any alcohol or drug abuse patient.[facility] the event this information is protected by the Federal Confidentiality of Alcohol and Drug Abuse Patient Records regulations: The Federal rules restrict any use of the information to criminally investigate or prosecute any alcohol or drug abuse patient.[facility]In the event this information is protected by the Federal Confidentiality of Alcohol and Drug Abuse Patient Records regulations: The Federal rules restrict any use of the information to criminally investigate or prosecute any alcohol or drug abuse patient.[facility]In the event this information is protected by the Federal Confidentiality of Alcohol and Drug Abuse Patient Records regulations: The Federal rules restrict any use of the information to criminally investigate or prosecute any alcohol or drug abuse patient.[facility] Reason for Visit (unrecogniz ed section and content) Reason Comments New Patient Reason Comments Appointment Manometry Reason Comments Future Appointment Esophageal manometry Reason Comments EKG Specialty Diagnoses / Procedures Referred By Contac t Referred To Contact [facility] Diagnoses Paraesophageal hernia Procedures ECG COMPLETE ECG ROUTINE ECG W/LEAST 12 LDS W/I&R Chasity Mir MD [address] [place] [address] [facility] [address] [place] [address] Referral ID Status Reason Start Date Expiration Date V isits Requested Visits Authorized [id number] Closed Auto-Generate d Referral 10/28/2023 10/27/2024 1 1 Reason Comments Patient Update Reason Comments Appointment INFORMATION SOURCE (unrecogn ized section and content) DATE CREATED AUTHOR 11/07/2023 [facility] DATE CREATED AUTHOR AUTHOR'S ORGANIZ ATION 04/22/2024 [facility] DATE CREATED AUTHOR AUTHOR'S ORGANIZ ATION 02/22/2025 [facility] FOR RECORDS PERTAINING TO PATIENTS WHO ARE [...] BE BASED ON THE PRIMARY CLINICAL RECORDS. [facility] [employer] [facility]. provides no warranty or guarantee of the accuracy or completeness of information in this document.
== END | disposition home or self-care (01) ==
LOC: OPBD 09:49
PROVIDERS: PCP Family Medicine; Referring Provider Family Medicine; Visit Provider Family Medicine
DX: Z12.31 Encounter for screening mammogram for malignant neoplasm of breast (principal); M81.0 Age-related osteoporosis without current pathological fracture
CPT/HCPCS: 77063; 77067; 77080